=== PATIENT | male | born 1960 | race African-American/Black ===

== ENCOUNTER 2016-02-28 15:24 | Inpatient (IN) | payer OTHER ==
[2016-02-28] VITALS (8 sets, daily range): BP systolic 152–202; BP diastolic 86–119; PULSE 91–106; RESP 15–18; TEMP 97.8; O2SAT 95–99
[~2016-02-28] VITALS: Ht 190.5 cm; Wt 95.2 kg
[~2016-02-28 15:24] MED LIST: AMLO10TA2 PO; ATOR40TA16 PO; BACL10TA PO; CARV6.252 PO; CYCL1TAB29 PO; FURO40TA PO; GABA300C5 PO; HYDR25TA35 PO; LISI40TA PO; PLAV75TA29 PO; POTA-163 PO; PROT40TA PO
--- NOTE | 2016-02-28 15:55 | PD ---
HPI Chief Complaint: Chest Pain Time Seen by Provider: 15:40 Travel History International Travel<30 days: No Contact w/Intl Traveler<30days: No Traveled to known affect area: No History of Present Illness HPI Patient is a 56-year-old male with history of hypertension, diabetes, hyperlipidemia, coronary artery disease who presents to emergency room with complaints of chest pain. Patient reports that he has been having increased chest pain over the past few weeks. Reports that chest pain has been persistent over the past few days. Patient reports that chest pain is located to his right breast, reports that it travels under his ribs to his left chest and then down his right arm. Patient reports that he has has history of chest pain in the past and has had a previous cardiac catheter in the past. 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 Patient reports that he feels diaphoretic with this chest pain. Patient also admits to shortness of breath with nausea and vomiting with the symptoms. Denies palpitations. PFSH Past Medical History Hx Anticoagulant Therapy: Yes Depression: Yes Heart Rhythm Problems: No Cancer: No Cardiac Catheterization: No Cardiovascular Problems: Yes High Cholesterol: Yes Congestive Heart Failure: No Diabetes: No Diminished Hearing: No Gastrointestinal Disorders: No Genitourinary: No Heparin Induced Thrombocytopen: No Hypertension: Yes (ON AND OFF) Immune Disorder: No Implanted Vascular Access Dvce: No Musculoskeletal: Yes (chronic lumbar pain) Neurologic: Yes Psychiatric: Yes Reproductive: No Respiratory: Yes Immunizations Current: No Renal Failure: Yes (RESOLVED 1992) Triglycerides - High: Yes Tetanus Vaccination: > 5 Years Past Surgical History Coronary Artery Bypass Graft: No Other Surgery: No Social History Alcohol Use: No Tobacco Use: No (quit recently, used to smoke 4-5 cigs a day) Substance Use: No Allergies-Medications (Allergen,Severity, Reaction): Coded Allergies: *MDRO Multi-Drug Resistant Organism (Verified Adverse Reaction, Unknown, 02/28/16) 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 Reported Meds & Prescriptions Reported Meds & Active Scripts Active Furosemide 40 Mg Tab 40 Mg PO DAILY Atorvastatin (Atorvastatin Calcium) 40 Mg Tab 40 Mg PO HS Plavix (Clopidogrel Bisulfate) 75 Mg Tab 75 Mg PO DAILY Hydralazine (Hydralazine HCl) 25 Mg Tab 25 Mg PO Q8HR takes 3 tabs every 8 hours Potassium Chloride ER (Potassium Chloride) 20 Meq Tab 20 Meq PO DAILY Protonix (Pantoprazole Sodium) 40 Mg Tab 40 Mg PO DAILY Amlodipine (Amlodipine Besylate) 10 Mg Tab 10 Mg PO DAILY Flexeril (Cyclobenzaprine HCl) 10 Mg Tab 10 Mg PO TID Reported Gabapentin 300 Mg Cap 300 Mg PO TID Carvedilol 6.25 Mg Tab 6.25 Mg PO BID Baclofen 10 Mg Tab 10 Mg PO TID PRN Review of Systems Cardiovascular: Positive: Chest Pain or Discomfort, Diaphoresis Respiratory: Positive: Shortness of Breath Gastrointestinal: Positive: Nausea, Vomiting Physical Exam Narrative GENERAL: nad, nontoxic SKIN: Warm and dry. HEAD: Atraumatic. Normocephalic. EYES: Pupils equal and round. No scleral icterus. No injection or drainage. ENT: No nasal bleeding or discharge. Mucous membranes pink and moist. NECK: Trachea midline. No JVD. CARDIOVASCULAR: Regular rate and rhythm. +4/6 systolic murmur RESPIRATORY: No accessory muscle use. Clear to auscultation. Breath sounds equal bilaterally. GASTROINTESTINAL: Abdomen soft, non-tender, nondistended. Hepatic and splenic margins not palpable. MUSCULOSKELETAL: No obvious deformities. No clubbing. No cyanosis. No edema. NEUROLOGICAL: Awake and alert. No obvious cranial nerve deficits. Motor grossly within normal limits. Normal speech. PSYCHIATRIC: Appropriate mood and affect; insight and judgment normal. Data Data Last Documented VS Vital Signs Date Time Temp Pulse Resp B/P Pulse Ox O2 Delivery O2 Flow Rate FiO2 02/28/16 16:00 99 02/28/16 15:26 97.8 91 15 169/96 Orders Electrocardiogram (02/28/16 ) B-Type Natriuretic Peptide (02/28/16 15:46) Ckmb (Isoenzyme) Profile (02/28/16 15:46) Complete Blood Count With Diff (02/28/16 15:46) Comprehensive Metabolic Panel (02/28/16 15:46) Prothrombin Time / Inr (Pt) (02/28/16 15:46) Act Partial Throm Time (Ptt) (02/28/16 15:46) Troponin I (02/28/16 15:46) Chest, Single Ap (02/28/16 15:46) Ecg Monitoring (02/28/16 15:46) Iv Access Insert/Monitor (02/28/16 15:46) Oximetry (02/28/16 15:46) Oxygen Administration (02/28/16 15:46) Aspirin (Aspirin) (02/28/16 16:00) Sodium Chloride 0.9% Flush (Ns Flush) (02/28/16 16:00) Nitroglycerin Sl (Nitrostat Sl) (02/28/16 16:00) Sodium Chlorid 0.9% 500 Ml Inj (Ns 500 M (02/28/16 16:00) CKMB (02/28/16 15:50) CKMB% (02/28/16 15:50) Morphine Inj (Morphine Inj) (02/28/16 17:15) Nitroglycerin-Dextrose Inj (Nitroglyceri (02/28/16 17:15) Heparin Inj (Heparin Inj) (02/28/16 23:15) Heparin Inj (Heparin Inj) (02/28/16 23:15) Heparin-D5w Inj (Heparin-D5w Inj) (02/28/16 17:15) Enoxaparin Inj (Lovenox Inj) (02/28/16 17:30) Labs Laboratory Tests Test 02/28/16 15:50 White Blood Count 14.0 TH/MM3 Red Blood Count 3.55 MIL/MM3 Hemoglobin 11.8 GM/DL Hematocrit 33.9 % Mean Corpuscular Volume 95.4 FL Mean Corpuscular Hemoglobin 33.1 PG Mean Corpuscular Hemoglobin 34.7 % Concent Red Cell Distribution Width 14.3 % Platelet Count 271 TH/MM3 Mean Platelet Volume 8.5 FL Neutrophils (%) (Auto) 74.6 % Lymphocytes (%) (Auto) 18.3 % Monocytes (%) (Auto) 4.5 % Eosinophils (%) (Auto) 2.1 % Basophils (%) (Auto) 0.5 % Neutrophils # (Auto) 10.4 TH/MM3 Lymphocytes # (Auto) 2.6 TH/MM3 Monocytes # (Auto) 0.6 TH/MM3 Eosinophils # (Auto) 0.3 TH/MM3 Basophils # (Auto) 0.1 TH/MM3 CBC Comment DIFF FINAL Differential Comment Prothrombin Time 9.9 SEC Prothromb Time International 0.9 RATIO Ratio Activated Partial 31.8 SEC Thromboplast Time Sodium Level 138 MEQ/L Potassium Level 3.3 MEQ/L Chloride Level 104 MEQ/L Carbon Dioxide Level 23.3 MEQ/L Anion Gap 11 MEQ/L Blood Urea Nitrogen 15 MG/DL Creatinine 2.50 MG/DL Estimat Glomerular Filtration 33 ML/MIN Rate Random Glucose 96 MG/DL Calcium Level 7.0 MG/DL Protein Corrected Calcium 7.8 MG/DL Total Bilirubin 0.1 MG/DL Aspartate Amino Transf 28 U/L (AST/SGOT) Alanine Aminotransferase 26 U/L (ALT/SGPT) Alkaline Phosphatase 106 U/L Total Creatine Kinase 428 U/L Creatine Kinase MB 3.8 NG/ML Creatine Kinase MB % 0.9 % Troponin I 0.09 NG/ML B-Type Natriuretic Peptide 116 PG/ML Total Protein 5.5 GM/DL Albumin 1.3 GM/DL [facility] Medical Decision Making Medical Screen Exam Complete: Yes Emergency Medical Condition: Yes Interpretation(s) EKG at 1542: Sinus tach at 103 bpm, QT/QTc 334/394 Vital Signs Date Time Temp Pulse Resp B/P Pulse Ox O2 Delivery O2 Flow Rate FiO2 02/28/16 15:26 97.8 91 15 169/96 95 Differential Diagnosis ACS, unstable angina, pneumothorax, pneumonia, PE, electrolyte abnormality Narrative Course Patient is a 56-year-old male with history of coronary disease, hypertension, hyperlipidemia, presents to emergency room with complaints of chest pain. Patient reports the chest pain has been ongoing for the past few weeks but has been persistent over the past few days. Patient placed on school lunch monitor as well as continuous pulse oximetry upon arrival to ER. EKG obtained. Patient with sinus tach at 103 beats for minute, no acute ST-T wave changes on EKG. CBC, BMP, cardiac enzymes as well as a chest ordered for evaluation of symptoms. I ordered patient and aspirin as well as sublingual nitroglycerin to see if this helps with pain. Plan to reevaluate after sl nitroglycerin Previous records reviewed, patient had a cardiac catheterization on October 09, [address] Burroughs. Patient had 1) mild to moderate 3 vessel coronary disease and a left dominant system. 2) Patient's left ventricular systolic function with EF was 60%. 3) first diagonal artery, there is a moderate to large sized vessel, has a 45 angulation of the left anterior descending artery. It is approximately 50-60% angiographically. Dr burroughs recommended trial of medical management of lesion. As per Dr. Burroughs, if the patient has persistent chest pain on optimal medical therapy, consider FFR of the lesion and possible high risk intervention versus CABG Patient with a troponin of 0.09 Patient with continued chest pain, will give dose of morphine for pain Patient cannot tell me who he follows up with for cardiology, patient did have a cardiac catheter by Dr. Burroughs in september 2015. pt with coronary disease with a 50-60% occlusion of ostial proximal diagonal artery Call made to Dr. Burroughs for positive troponin and further cardiac management Will start patient on heparin and heparin drip as well as a drip for his chest pain. Admit patient to the CICU Discussed case with Dr Delatorre who is covering for Dr Burroughs, request lovenox and nitro gtt, will cont to follow pt Case reviewed with family practice residents who accepts patient to Dr. Flores' s service Critical Care Narrative Aggregate critical care time was 30 minutes. Time to perform other separately billable procedures was not included in the critical care time. My time did not include minutes spent treating any other patients simultaneously or on activities that did not directly contribute to the patient's treatment. The services I provided to this patient were to treat and/or prevent clinically significant deterioration that could result in: , decompensation, deterioration I provided critical care services requiring my management, as noted below: Chart data review, documentation time, medication orders and management, vital sign assessments/reviewing monitor data, ordering and reviewing lab tests, ordering and interpreting/reviewing x-rays and diagnostic studies, care of the patient and discussion of the patient with the admitting physicians. Diagnosis Primary Impression: NSTEMI (non-ST elevated myocardial infarction) Additional Impression: Unstable angina Admitting Information Admitting Physician Requests: Kaylin Escobar DO Feb 28, 2016 15:55
[2016-02-28] MEDS ORDERED: ASPIRIN 325 MG TAB PO ONE (16:00)
[2016-02-28] MEDS ORDERED: SODIUM CHLORID 0.9% 500 ML INJ 500 ML IV ONE (16:00)
[2016-02-28] MEDS: NITROGLYCERIN 0.4 MG SL 25 TABS/BTL SL SCH ×3 (16:12→16:22)
--- NOTE | 2016-02-28 16:13 | RADRPT ---
EXAM DATE/TIME: 02/28/2016 15:47 [facility] COMPARISON: CHEST SINGLE AP, November 20, 2015, 15:40. INDICATIONS : Chest Pain, Short of Breath. MEDICAL HISTORY : Hypercholesterolemia. Hypertension. Hyperlipidemia. Dyspnea. Renal failure. Chronic lumbar pain. Depr ession. SURGICAL HISTORY : None. ENCOUNTER: Initial ACUITY: 2 days PAIN SCORE: 7/10 LOCATION: Bilateral chest FINDINGS: A single view of the chest demonstrates the lungs to be symmetrically aerated without evidence of mas s, infiltrate or effusion. The cardiomediastinal contours are unremarkable. Osseous structures are intact. CONCLUSION: No evidence of acute cardiopulmonary disease. Troy Dean MD on February 28, 2016 at 16:11 Board Certified Radiologist. This report was verified electronically.
[2016-02-28 16:15] LABS: AUTOMATED NEUTROPHIL # 10.4 TH/MM3 (1.8-7.7); BASOPHIL # 0.1 TH/MM3 (0-0.2); BASOPHIL % 0.5 % (0.0-2.0); EOSINOPHIL # 0.3 TH/MM3 (0-0.4); EOSINOPHIL % 2.1 % (0.0-4.0); HEMATOCRIT 33.9 % (39.0-51.0); HEMO FLAGS DIFF FINAL; LYMPH % 18.3 % (9.0-44.0); LYMPHOCYTE # 2.6 TH/MM3 (1.0-4.8); MEAN CELL VOLUME 95.4 FL (80.0-100.0); MEAN CORPUSCULAR HEMOGLOBIN 33.1 PG (27.0-34.0); MEAN CORPUSCULAR HGB CONC 34.7 % (32.0-36.0); MONO % 4.5 % (0.0-8.0); NEUT % 74.6 % (16.0-70.0); PLATELET COUNT 271 TH/MM3 (150-450); RED BLOOD COUNT 3.55 MIL/MM3 (4.50-5.90); RED CELL DISTRIBUTION WIDTH 14.3 % (11.6-17.2)
[2016-02-28 16:29] LABS: APTT (PATIENT) 31.8 SEC (24.3-30.1); INTERNATIONAL NORMALIZED RATIO 0.9 RATIO; PROTHROMBIN TIME - PATIENT 9.9 SEC (9.8-11.6)
[2016-02-28 16:53] LABS: BICARBONATE 23.3 MEQ/L (21.0-32.0); CALCIUM-PROTEIN CORRECTED 7.8 MG/DL (8.5-10.1); POTASSIUM 3.3 MEQ/L (3.5-5.1); TOTAL BILIRUBIN ADULT 0.1 MG/DL (0.2-1.0)
[2016-02-28] MEDS ORDERED: HEPARIN-D5W INJ 250 ML IV SCH ×2 (17:15→18:45)
[2016-02-28] MEDS ORDERED: MORPHINE SULFATE 4 MG/ML INJ IV PUSH ONE (17:15)
[2016-02-28] MEDS ORDERED: NITROGLYCERIN-DEXTROSE INJ 250 ML IV SCH (17:15)
[2016-02-28 17:23] LABS: CKMB 3.8 NG/ML (0.5-3.6)
[2016-02-28] MEDS ORDERED: ENOXAPARIN SODIUM 100 MG/ML SYRINGE SQ ONE (17:30)
[2016-02-28] MEDS: CLOPIDOGREL 75 MG TAB PO SCH (18:56)
[2016-02-28] MEDS: PANTOPRAZOLE SOD 40 MG DELAYED RELEASE TAB PO SCH (18:56)
[2016-02-28] MEDS ORDERED: ACETAMINOPHEN 325 MG TAB PO PRN (19:00)
[2016-02-28] MEDS ORDERED: POTASSIUM CHLORIDE 20 MEQ CONTROLLED RELEASE TAB PO ONE (19:15)
--- NOTE | 2016-02-28 19:38 | HHI.HP ---
HPI Service Family Medicine Primary Care Physician No Primary Care Physician Admission Diagnosis Unstable Angina, NSTEMI Diagnoses: International Travel<30 Days: No Contact w/Intl Traveler<30days: No Known Affected Area: No History of Present Illness 56-year-old male with past medical history of known coronary artery disease with last heart catheter performed September/2015 showing 50-60% stenosis of the diagonal artery, hypertension in poor control, hyperlipidemia presenting with a 3 to four-day history of chest pain radiating to the right arm worsening on exertion and associated dyspnea. Pain occurred suddenly 3-4 days ago localized in the mid chest and is described as alternating between a pressure and a stabbing sensation. Occasionally the pain will radiate down the right arm. Regarding the right arm, 4 days ago he woke up with weakness of the right arm. This has been improving, but is not completely resolved. Associated with some numbness and the pain as previously mentioned. He denies any orthopnea. He has had some swelling of his face in the morning time as well as some swelling of his legs which has been an ongoing problem for several months, improved since he started taking Lasix. He has not had any palpitations, fevers or chills, syncope, pain radiating to back (apart from his chronic back pain). Additionally , he notes right upper quadrant abdominal pain occasionally associated with this chest pain/pressure. Finally, he notes some mild dysuria and difficulty initiating urine stream which has been ongoing for several weeks. Note: Patient is a relatively poor historian does not have a good understanding of his medical history Review of Systems ROS Limitations: Poor Historian Constitutional: DENIES: Fever Endocrine: DENIES: Polyuria Eyes: DENIES: Blurred vision Respiratory: COMPLAINS OF: Shortness of breath, DENIES: Cough Cardiovascular: COMPLAINS OF: Chest pain, Dyspnea on Exertion, Lower Extremity Edema, DENIES: Palpitations, Orthopnea Gastrointestinal: COMPLAINS OF: Abdominal pain, DENIES: Black stools, Bloody stools, Constipation, Nausea, Vomiting Genitourinary: COMPLAINS OF: Sexual dysfunction (ongoing issue, following with Dr. Russell), Urinary frequency, Dysuria, DENIES: Urinary incontinence, Urgency , Hematuria Musculoskeletal: DENIES: Joint pain, Muscle aches Integumentary: DENIES: Rash Hematologic/lymphatic: DENIES: Bruising Neurologic: DENIES: Headache Past Family Social History Past Medical History Coronary artery disease (see history of present illness) Hypertension, relatively poorly controlled Hyperlipidemia Past Surgical History Colonoscopy a few months ago, told to follow-up in 5 years Reported Medications Reported Meds & Active Scripts Active Furosemide 40 Mg Tab 40 Mg PO DAILY Atorvastatin (Atorvastatin Calcium) 40 Mg Tab 40 Mg PO HS Plavix (Clopidogrel Bisulfate) 75 Mg Tab 75 Mg PO DAILY Hydralazine (Hydralazine HCl) 25 Mg Tab 25 Mg PO Q8HR takes 3 tabs every 8 hours Potassium Chloride ER (Potassium Chloride) 20 Meq Tab 20 Meq PO DAILY Protonix (Pantoprazole Sodium) 40 Mg Tab 40 Mg PO DAILY Amlodipine (Amlodipine Besylate) 10 Mg Tab 10 Mg PO DAILY Flexeril (Cyclobenzaprine HCl) 10 Mg Tab 10 Mg PO TID Reported Gabapentin 300 Mg Cap 300 Mg PO TID Carvedilol 6.25 Mg Tab 6.25 Mg PO BID Baclofen 10 Mg Tab 10 Mg PO TID PRN Allergies: Coded Allergies: *MDRO Multi-Drug Resistant Organism (Verified Adverse Reaction, Unknown, 02/28/16) 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 Active Ordered Medications Current Medications Medications (Trade) Dose Ordered Sig/Ramakrishna Route Start Time Stop Time Status Last Admin IV Flush 2 ml 2 ml UNSCH PRN IVF 02/28/16 16:00 (Nitroglycerin-Dextrose Inj) 250 ml @ 0 mls/hr TITRATE IV 02/28/16 17:15 02/28/16 17:27 (Norvasc) 10 mg DAILY PO 02/28/16 18:15 02/28/16 18:56 (Lipitor) 40 mg HS PO 02/28/16 21:00 02/28/16 20:38 (Coreg) 6.25 mg BID PO 02/28/16 21:00 02/28/16 20:37 (Plavix) 75 mg DAILY PO 02/28/16 18:15 02/28/16 18:56 (Lasix) 40 mg DAILY PO 02/29/16 09:00 Future Hold (Neurontin) 300 mg TID PO 02/29/16 09:00 (Apresoline) 25 mg Q8HR PO 02/28/16 22:00 Future Hold (Protonix) 40 mg DAILY@06 PO 02/28/16 18:15 02/28/16 18:56 Potassium Chloride 20 meq 20 meq DAILY PO 02/29/16 09:00 (Heparin-D5W Inj) 250 ml @ 0 mls/hr TITRATE IV 02/28/16 18:45 02/28/16 19:51 (Colace) 100 mg Q12H PO 02/28/16 20:00 02/28/16 20:37 (Tylenol) 650 mg Q6H PRN PO 02/28/16 19:00 (Roxicodone) 10 mg Q4H PRN PO 02/28/16 19:00 (Morphine Inj) 4 mg Q3H PRN IV 02/28/16 19:00 (Roxicodone) 5 mg Q4H PRN PO 02/28/16 19:00 (Aspirin) 325 mg DAILY PO 02/29/16 09:00 (Flexeril) 10 mg TID PRN PO 02/29/16 09:00 Family History Mother had Crohn's disease and diabetes Social History Tobacco: Smoked a third pack per day for about 30 years, quit 4 months ago Alcohol no current use, formerly drank fairly heavily when he was in the Drugs: Denies use Other: 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 Cool and dry. HEAD: NC/AT EYES: PERRL. EOMI. No conjunctival injection or drainage. ENT: MMM, OP without erythema, tonsillar swelling, or exudate. NECK: Supple, no lymphadenopathy. CARDIOVASCULAR: Normal to slightly tachycardic rate, regularly irregular with extra beat approximately every fourth beat. S1/S2 normal, frequent PVCs audible , questionable S4 heard best at the mitral area. 2/6 systolic ejection murmur at right upper sternal border and apex of heart. RESPIRATORY: CTAB. No crackles or wheezes. GASTROINTESTINAL: Abdomen soft, non-distended, mildly tender to palpation of the right upper quadrant, no rebound, no guarding. No hepato-splenomegaly or palpable masses. MUSCULOSKELETAL: Extremities without clubbing, cyanosis, or edema. NEUROLOGICAL: Awake and alert. Cranial nerves II through XII intact. Strength 3 out of 5 in right upper extremity, harsh a limited due to pain, however partially limited as well due to underlying weakness. Strength 5 out of 5 in all other muscle groups. Sensation grossly intact throughout. Normal speech. Laboratory Laboratory Tests Test 02/28/16 15:50 White Blood Count 14.0 Red Blood Count 3.55 Hemoglobin 11.8 Hematocrit 33.9 Mean Corpuscular Volume 95.4 Mean Corpuscular Hemoglobin 33.1 Mean Corpuscular Hemoglobin 34.7 Concent Red Cell Distribution Width 14.3 Platelet Count 271 Mean Platelet Volume 8.5 Neutrophils (%) (Auto) 74.6 Lymphocytes (%) (Auto) 18.3 Monocytes (%) (Auto) 4.5 Eosinophils (%) (Auto) 2.1 Basophils (%) (Auto) 0.5 Neutrophils # (Auto) 10.4 Lymphocytes # (Auto) 2.6 Monocytes # (Auto) 0.6 Eosinophils # (Auto) 0.3 Basophils # (Auto) 0.1 CBC Comment DIFF FINAL Differential Comment Prothrombin Time 9.9 Prothromb Time International 0.9 Ratio Activated Partial 31.8 Thromboplast Time Sodium Level 138 Potassium Level 3.3 Chloride Level 104 Carbon Dioxide Level 23.3 Anion Gap 11 Blood Urea Nitrogen 15 Creatinine 2.50 Estimat Glomerular Filtration 33 Rate Random Glucose 96 Calcium Level 7.0 Protein Corrected Calcium 7.8 Total Bilirubin 0.1 Aspartate Amino Transf 28 (AST/SGOT) Alanine Aminotransferase 26 (ALT/SGPT) Alkaline Phosphatase 106 Total Creatine Kinase 428 Creatine Kinase MB 3.8 Creatine Kinase MB % 0.9 Troponin I 0.09 B-Type Natriuretic Peptide 116 Total Protein 5.5 Albumin 1.3 Result Diagram: 02/28/16 1550 02/28/16 1550 Imaging Last Impressions Chest X-Ray 02/28/16 1546 Signed Impressions: Service Date/Time: Sunday, February 28, 2016 15:47 - CONCLUSION: No evidence of acute cardiopulmonary disease. Troy Dean MD Assessment and Plan Assessment and Plan 56-year-old male with history of significant coronary artery disease and uncontrolled hypertension presenting with: Code Status Full code Discussed Condition With Dr. Cline Problem List: (1) NSTEMI (non-ST elevated myocardial infarction) Status: Acute Plan: Acute onset chest pain in setting of elevated NC in no ST segment changes on EKG makes diagnosis of NSTEMI Last echocardiogram 02/28/15 showing normal EF, mild aortic regurgitation and aortic root dilation Troponin: 0.09 BNP 115 * Cardiology consulted, appreciate their recommendations * Initially given 1 dose Lovenox, however due to acute kidney injury will continue on unfractionated heparin drip titrated per protocol * Nitro drip titrated per protocol * Trend cardiac enzymes every 6 hours * Trend EKG every 6 hours * Echocardiogram * Patient on aspirin, beta isaac, statin * Lisinopril had previously given cough, needs to be on ARB; holding for now given acute kidney injury * Telemetry * Administer oxygen to maintain O2 sats greater than 95% * Tylenol and oxycodone as needed for pain, morphine for breakthrough (2) Weakness of right arm Status: Acute Plan: Patient has history of "nerve impingement" of the right upper extremity causing numbness or tingling, however the weakness is a new symptom in the last 4 days. Per the patient he woke up with this symptom 4 days ago and it has improved somewhat but is still persistent. No prior history of stroke. * Well outside window for tPA * Given subacute nature, we'll defer MRI until drips can be safely discontinued to allow obtaining MRI * Unlikely to be intracranial hemorrhage given that symptoms been present for the last 4 days and have not worsened * Continue on aspirin, Plavix (3) Hypertension Status: Acute Plan: Blood pressures ranging 190 to 200s systolic, no symptoms other than chest pain, which does not appear to be related to hypertension * Continue to monitor blood pressures * On nitro drip * Hold home hydralazine does not prevent blood pressure dipping too low on nitro drip * Continue home amlodipine * Continue home Coreg * Clonidine 0.1 mg every 6 hours as needed for blood pressure greater than 180/ 100 * No need to allow permissive hypertension as patient is outside window of acute stroke protocol (subacute neurologic event, if any) (4) [id number] kidney injury Status: Acute Plan: Creatinine approximately 2.50 on admission, baseline around 1.24 back in October * Receiving IV fluids through the drips as previously noted * Hold additional IV fluids at this time given uncertain systolic heart function * Hold home Lasix given no clinical evidence of pulmonary edema or other fluid overload at this time * Renally dose medications * Follow-up BMP (5) ETOH abuse Status: Chronic Plan: Per patient, he has not had anything to drink in quite some time and this is since he was last in the service years ago) * CIWA protocol (6) Dysuria Status: Acute Plan: Mild, associated with some frequency and hesitancy for which PCP was working him up for prostate issues * UA to r/o UTI or occult hematuria * F/u as outpatient (7) DVT prophylaxis Status: Acute Plan: No need at this time given he is on heparin drip (8) Nutrition, metabolism, and development symptoms Status: Acute Plan: Fluids: By mouth only at this time except what is running through drips Electrolytes: Monitor and replace as needed Nutrition: Diet 1800 ADA carb consistent Physician Certification 2 Midnight Certification Type: Admission for Inpatient Services Order for Inpatient Services The services are ordered in accordance with Medicare regulations or non- Medicare payer requirements, as applicable. In the case of services not specified as inpatient-only, they are appropriately provided as inpatient services in accordance with the 2-midnight benchmark. Estimated LOS (days): 2 days is the estimated time the patient will need to remain in the hospital, assuming treatment plan goals are met and no additional complications. Post-Hospital Plan: Home Problem Qualifiers (1) Hypertension: Qualified Code: I10 - Essential hypertension Kody Terry MD R1 Feb 28, 2016 7:38 pm
[2016-02-28] MEDS: DOCUSATE SODIUM 100 MG CAP PO SCH (20:37)
[2016-02-28] MEDS: CARVEDILOL 6.25 MG TAB PO SCH (20:37)
[2016-02-28] MEDS: ATORVASTATIN 40 MG TAB PO SCH (20:38)
[2016-02-28] MEDS ORDERED: FLUMAZENIL 1 MG/10 ML VIAL IV PUSH PRN (21:45)
[2016-02-28] MEDS ORDERED: LORazepam 2 MG TAB PO PRN (21:45)
[2016-02-28] MEDS ORDERED: LORazepam 2 MG/ML VIAL IV PUSH PRN ×4 (21:45)
[2016-02-28] MEDS: MORPHINE SULFATE 4 MG/ML INJ IV PRN (23:11)
[2016-02-28] MEDS ORDERED: HEPARIN SODIUM - IV 10,000 UNITS/10 ML VIAL IV PRN ×2 (23:15)
[2016-02-29] VITALS (20 sets, daily range): BP systolic 143–166; BP diastolic 84–107; PULSE 80–92; RESP 16–18; TEMP 97.4–98.7; O2SAT 96–98
[2016-02-29 02:02] LABS: APTT (PATIENT) 38.1 SEC (24.3-30.1); INTERNATIONAL NORMALIZED RATIO 0.9 RATIO; PROTHROMBIN TIME - PATIENT 10.3 SEC (9.8-11.6)
[2016-02-29 04:17] LABS: AUTOMATED NEUTROPHIL # 7.5 TH/MM3 (1.8-7.7); BASOPHIL # 0.1 TH/MM3 (0-0.2); BASOPHIL % 0.5 % (0.0-2.0); EOSINOPHIL # 0.5 TH/MM3 (0-0.4); EOSINOPHIL % 4.3 % (0.0-4.0); HEMATOCRIT 29.3 % (39.0-51.0); HEMO FLAGS DIFF FINAL; LYMPHOCYTE # 3.9 TH/MM3 (1.0-4.8); MEAN CELL VOLUME 96.2 FL (80.0-100.0); MEAN CORPUSCULAR HEMOGLOBIN 32.7 PG (27.0-34.0); MONO % 5.2 % (0.0-8.0); PLATELET COUNT 226 TH/MM3 (150-450); RED BLOOD COUNT 3.04 MIL/MM3 (4.50-5.90); RED CELL DISTRIBUTION WIDTH 14.8 % (11.6-17.2); WHITE BLOOD COUNT 12.7 TH/MM3 (4.0-11.0)
[2016-02-29] MEDS: PANTOPRAZOLE SOD 40 MG DELAYED RELEASE TAB PO SCH (07:54)
[2016-02-29] MEDS: DOCUSATE SODIUM 100 MG CAP PO SCH ×2 (07:54→21:54)
[2016-02-29] MEDS: CARVEDILOL 6.25 MG TAB PO SCH ×2 (08:24→21:54)
[2016-02-29] MEDS: ASPIRIN 325 MG TAB PO SCH (08:24)
[2016-02-29 08:25] LABS: BICARBONATE 22.8 MEQ/L (21.0-32.0); CALCIUM-PROTEIN CORRECTED 8.5 MG/DL (8.5-10.1); POTASSIUM 3.8 MEQ/L (3.5-5.1); TOTAL BILIRUBIN ADULT 0.2 MG/DL (0.2-1.0)
[2016-02-29] MEDS: POTASSIUM CHLORIDE 20 MEQ CONTROLLED RELEASE TAB PO SCH (08:25)
[2016-02-29] MEDS: GABAPENTIN 300 MG CAP PO SCH ×3 (08:25→17:39)
[2016-02-29] MEDS: CLOPIDOGREL 75 MG TAB PO SCH (08:26)
[2016-02-29] MEDS ORDERED: FUROSEMIDE 40 MG TAB PO SCH (09:00)
[2016-02-29] MEDS ORDERED: CYCLOBENZAPRINE HCL 10 MG TAB PO SCH (09:00)
[2016-02-29] MEDS: MORPHINE SULFATE 4 MG/ML INJ IV PRN ×2 (09:02→11:34)
[2016-02-29 09:23] LABS: APTT (PATIENT) 35.5 SEC (24.3-30.1)
[2016-02-29] MEDS: cloNIDine HCL 0.1 MG TAB PO PRN (09:23)
--- NOTE | 2016-02-29 12:33 | RADRPT ---
EXAM DATE/TIME: 02/29/2016 12:15 [facility] COMPARISON: No previous studies available for comparison. INDICATIONS : Cephalgia. Right arm numbness. Evaluate for cerebral vascular accident. RADIATION DOSE: 49.36 CTDIvol (mGy) MEDICAL HISTORY : Hypertension. Renal failure, chronic. SURGICAL HISTORY : None. ENCOUNTER: Initial ACUITY: 1 day PAIN SCALE: 4/10 LOCATION: cranial TECHNIQUE: Multiple contiguous axial images were obtained of the head. Using automated exposure control and adj ustment of the mA and/or kV according to patient size, radiation dose was kept as low as reasonably a chievable to obtain optimal diagnostic quality images. FINDINGS: Remote right thalamic infarct. No signs of acute infarct, intracranial hemorrhage, or mass. Osseous s tructures are intact. CONCLUSION: Remote right thalamic infarct. Remigio Bill MD on February 29, 2016 at 12:32 Board Certified Radiologist. This report was verified electronically.
--- NOTE | 2016-02-29 13:15 | EKG ---
Date Performed: 02/29/2016 Time Performed: 01:59:25 PTAGE: 56 years EKG: Sinus rhythm WITH OCCASIONAL SUPRAVENTRICULAR PREMATURE COMPLEXES Since previous tracing, no significant change n oted BORDERLINE ECG PREVIOUS TRACING : 02/28/2016 22.30 DOCTOR: Rose Horvath Interpretating Date/Time 02/29/2016 13:15:16
--- NOTE | 2016-02-29 13:15 | EKG ---
Date Performed: 02/28/2016 Time Performed: 15:42:35 PTAGE: 56 years EKG: SINUS TACHYCARDIA WITH FREQUENT SUPRAVENTRICULAR PREMATURE COMPLEXES POSSIBLE LEFT ATRIAL E NLARGEMENT Since previous tracing, no significant change noted ABNORMAL RHYTHM ECG PREVIOUS TRACING : 11/20/2015 21.29 DOCTOR: Rose Horvath Interpretating Date/Time 02/29/2016 13:14:43
--- NOTE | 2016-02-29 13:15 | EKG ---
Date Performed: 02/28/2016 Time Performed: 22:30:34 PTAGE: 56 years EKG: Sinus rhythm WITH OCCASIONAL SUPRAVENTRICULAR PREMATURE COMPLEXES Since previous tracing, no significant change n oted BORDERLINE ECG PREVIOUS TRACING : 02/28/2016 15.42 DOCTOR: Rose Horvath Interpretating Date/Time 02/29/2016 13:15:07
[2016-02-29 14:22] LABS: BLOOD, URINE SMALL (NEG); COMMENT (UR) CULT NOT INDICATED; CULTURE IF INDICATED CULT NOT INDICATED; GLUCOSE,URINE NEG (NEG); KETONE, URINE NEG (NEG); MUCUS URINE FEW /lpf (OCC); NITRITE,URINE NEG (NEG); URINE COLOR LIGHT-YELLOW (YELLW/STRAW)
--- NOTE | 2016-02-29 16:33 | HHI.FPPN ---
Subjective Subjective Patient seen and examined this am with the resident team. Case reviewed and discussed Please refer to resident H&P for further details regarding HPI, ROS, PMH, SurgHx , Fh and SocHx In summary, patient is a 56yoM with a history of multiple hospital admissions for intermittent chest pain presenting for several days history of chest pain radiating to his arm. Initial troponin was elevated on admission and patient was placed on NG gtt with some improvement of his chest pain. He is seen this am, reporting his chest pain is improved. He complains of R shoulder pain which has been chronic for him. He is followed by Dr. Quintero in the community clinic. [facility] Objective Objective Last Impressions Head CT 02/29/16 0000 Signed Impressions: Service Date/Time: Monday, February 29, 2016 12:15 - CONCLUSION: Remote right thalamic infarct. Remigio Bill MD Chest X-Ray 02/28/16 1546 Signed Impressions: Service Date/Time: Sunday, February 28, 2016 15:47 - CONCLUSION: No evidence of acute cardiopulmonary disease. Troy Dean MD Laboratory Tests - Abnormals Test 02/28/16 02/29/16 02/29/16 02/29/16 21:50 01:35 03:30 09:00 Troponin I 0.10 NG/ML 0.08 NG/ML Activated Partial 38.1 SEC 35.5 SEC Thromboplast Time White Blood Count 12.7 TH/MM3 Red Blood Count 3.04 MIL/MM3 Hemoglobin 10.0 GM/DL Hematocrit 29.3 % Eosinophils (%) (Auto) 4.3 % Eosinophils # (Auto) 0.5 TH/MM3 Chloride Level 110 MEQ/L Blood Urea Nitrogen 20 MG/DL Creatinine 2.50 MG/DL Estimat Glomerular Filtration 33 ML/MIN Rate Calcium Level 7.1 MG/DL Total Protein 4.5 GM/DL Albumin 1.1 GM/DL Test 02/29/16 13:30 Urine Protein 100 mg/dL Urine Occult Blood SMALL Urine RBC 4 /hpf Urine Mucus FEW /lpf Vital Signs 02/28/16 02/28/16 02/28/16 02/28/16 19:01 19:07 20:38 20:59 Pulse 91 100 103 Resp 18 18 18 B/P 192/107 202/119 194/104 Pulse Ox 99 98 95 96 O2 Delivery Room Air 02/28/16 02/28/16 02/29/16 02/29/16 21:10 23:07 01:04 01:05 Pulse 106 94 Resp 18 18 18 18 B/P 166/98 152/86 Pulse Ox 96 96 O2 Delivery Room Air Room Air 02/29/16 02/29/16 02/29/16 02/29/16 02:01 05:25 05:46 07:00 Pulse 80 82 Resp 18 16 18 B/P 157/90 161/92 Pulse Ox 96 98 O2 Delivery Room Air 02/29/16 02/29/16 02/29/16 02/29/16 07:00 09:00 09:25 09:35 Temp 98.0 Pulse 88 84 84 80 Resp 16 16 16 B/P 152/86 152/84 166/107 Pulse Ox 98 98 98 O2 Delivery Room Air 02/29/16 02/29/16 02/29/16 02/29/16 10:00 11:00 11:00 12:00 Temp 97.4 Pulse 90 80 82 87 Resp 16 B/P 143/94 Pulse Ox 97 02/29/16 02/29/16 02/29/16 02/29/16 13:00 14:00 15:00 15:00 Temp 97.4 Pulse 91 86 80 81 Resp 16 B/P 165/96 Pulse Ox 98 02/29/16 02/29/16 16:00 16:00 Pulse 88 Pulse Ox 97 FiO2 21 Physical exam GENERAL: Obese male resting in bed, NAD SKIN: Warm and dry. No rashes. HEAD: Normocephalic. AT EYES: No scleral icterus. No injection or drainage. ENT: OP clear. MMM, NC in place NECK: Supple, trachea midline. No JVD or lymphadenopathy. CARDIOVASCULAR: Regular rate and rhythm without audible murmurs, gallops, or rubs. RESPIRATORY: Breath sounds equal and clear to auscultation bilaterally. No accessory muscle use. GASTROINTESTINAL: Abdomen soft, there is mild tenderness to deep palpation over RUQ and epigastric region, nondistended. Obese. MUSCULOSKELETAL: No cyanosis, or edema. No calf tenderness. R shoulder with limited passive and active ROM 2/2 pain. RUE with notable edema in comparison to the left. BACK: Nontender without obvious deformity. No CVA tenderness. NEURO: Awake and alert. Normal speech. CN grossly intact. Decreased welfare specialist strength of R hand in comparison to L Assessment Assessment 56yoM admitted with: Chest pain with elevated troponin NSTEMI Acute on chronic renal failure R shoulder pain Leukocytosis HTN HL CAD PLAN PLAN Serial ekg, trop Nitro and heparin gtt per cardiology Cardiology consultation ASA Morphine titrated to chest pain RUE doppler to r/o DVT Resume home meds as appropriate Counseled on compliance PT consult for R shoulder Consider MRI R shoulder Patient seen and examined. Case reviewed and discussed Agree with plan of care as discussed with me and documented in the resident note. Cathleen Flores MD Feb 29, 2016 16:33
--- NOTE | 2016-02-29 17:56 | RADRPT ---
EXAM DATE/TIME: 02/29/2016 15:06 [facility] COMPARISON: No previous studies available for comparison. INDICATIONS : Right arm pain and swelling. MEDICAL HISTORY : Hypercholesterolemia. Hypertension. Hyperlipidemia. Anticoagulant therapy. Dyspnea. Resolved renal f ailure. Chronic lumbar pain. Depression. SURGICAL HISTORY : Cardiac catheterization. ENCOUNTER: Initial ACUITY: 1 day PAIN SCORE: 5/10 LOCATION: Right arm. FINDINGS: There is spontaneous flow documented in the brachial, basilic, cephalic, axillary, and subclavian vei ns. The vessels are compressible and augmentation response is documented. No filling defects are se en. The flow is phasic with respiration. Direction of flow in the jugular vein is caudal. CONCLUSION: No DVT right upper extremity. Troy Dean MD on February 29, 2016 at 17:55 Board Certified Radiologist. This report was verified electronically.
--- NOTE | 2016-02-29 17:58 | RADRPT ---
EXAM DATE/TIME: 02/29/2016 15:32 [facility] COMPARISON: CT ABDOMEN & PELVIS W/O CONTRAST, October 09, 2015, 11:05. INDICATIONS : Increased lab values. MEDICAL HISTORY : Hypercholesterolemia. Hypertension. Hyperlipidemia. Anticoagulant therapy. Dyspnea. Resolved renal failure. Chronic lumbar pain. Depression. SURGICAL HISTORY : Cardiac catheterization. ENCOUNTER: Initial ACUITY: 1 day PAIN SCORE: 5/10 LOCATION: Bilateral flank MEASUREMENTS: RIGHT KIDNEY: 14.6 x 6.5 x 5.3 cm LEFT KIDNEY: 12.8 x 6.9 x 6.3 cm FINDINGS: RIGHT KIDNEY: Diffusely echogenic. No focal renal lesion. No hydronephrosis. LEFT KIDNEY: Diffusely echogenic. No focal renal lesion. No hydronephrosis. BLADDER: Within normal limits given the degree of distension. Incidentally seen nonspecific enlarged prostate, 4.3 x 5.7 x 4.3 cm. CONCLUSION: 1. Both kidneys are mildly echogenic suggesting early chronic parenchymal disease. 2. No obstructive uropathy or other acute abnormality demonstrated. 3. Enlarged prostate. Troy Dean MD on February 29, 2016 at 17:56 Board Certified Radiologist. This report was verified electronically.
--- NOTE | 2016-02-29 18:28 | MB ---
cc: GHANSHYAM LO M.D. DATE OF CONSULTATION 02/29/2016 REASON FOR CONSULTATION Chest pain and elevated troponin. HISTORY OF PRESENT ILLNESS This is 56-year-old black -[place] male for the last four days has been having on and off right-sided chest pain and neck pain, occasionally associated with shortness of breath. This has not been associated with activity. There was some numbness down the right arm as well, and he could not move his right arm because of weakness. He is known to have degenerative arthritis of the cervical spine with cervical radiculopathy. In September the patient had substernal chest pain and had cardiac catheterization by Dr. Rodriguez and it showed moderate disease of the diagonal branch. Ejection fraction was normal. The pain was similar to this. In October he was admitted for right cervical radiculopathy. He is known to have hypertension. He quit smoking 6 months ago. He has smoked one-third of a pack a day. He is a non-drinker. He is also known to have hyperlipidemia but no diabetes. He quit smoking in October. ALLERGIES STATED IN THE CHART. PAST MEDICAL HISTORY 1. Hypertension. 2. Hyperlipidemia. 3. Degenerative arthritis of the neck. MEDICATIONS At home: 1. Lasix. 2. Lipitor. 3. Plavix. 4. Hydralazine. 5. Potassium. 6. Protonix. 7. Amlodipine. 8. Flexeril. 9. Neurontin. 10. Carvedilol. 11. Baclofen. FAMILY HISTORY Father at age 74 of unknown etiology. Mother age 69 of complications of Crohn disease but no myocardial infarction. SOCIAL HISTORY The patient is with two healthy grown children. He is disabled. 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 PHYSICAL EXAMINATION VITAL SIGNS: On the day of consultation showed blood pressure of 152/84, pulse 84 per minute, afebrile. HEAD AND NECK: Examination shows normal oral exam. Neck is supple. CHEST: Exam showed decreased air entry with mild degree of bronchospasm. CARDIOVASCULAR: Examination showed normal neck vein. S1-S2 decreased. No S3-4. No murmur. ABDOMEN: Examination revealed liver and spleen not palpable. Bowel sounds normal. Nontender abdomen. CENTRAL NERVOUS SYSTEM: Exam showed the patient's oriented to time, place and person. Moving all four limbs. ASSESSMENT 1. Chest pain most likely secondary to degenerative arthritis of the neck with right cervical radiculopathy. 2. Moderate disease of the diagonal branch from cardiac catheterization done in September of 2015. 3. Hypertension. Poorly controlled. 4. Mild degree of bronchospasm from chronic obstructive pulmonary disease. 5. The patient also has renal insufficiency. 6. Mildly elevated troponin is probably secondary to mild renal insufficiency. PLAN I would recommend discontinuing IV nitro and IV heparin. The patient can be treated for cervical degenerative arthritis with radiculopathy. Renal insufficiency is secondary to hypertensive nephropathy. Dr. Rodriguez will take over tomorrow morning. MD SANDRA Servin/MALENA /1:09 PM /6:04 PM
[2016-02-29] MEDS: hydrALAZINE HCL 25 MG TAB PO SCH (21:53)
[2016-02-29] MEDS: ATORVASTATIN 40 MG TAB PO SCH (21:53)
[2016-02-29] MEDS: HEPARIN SODIUM - SQ 10,000 UNITS/ML VIAL SQ SCH (21:54)
[2016-02-29] MEDS: SODIUM CHLORIDE 0.9% FLUSH 5 ML FLUSH IVF PRN (21:54)
[2016-03-01] VITALS (30 sets, daily range): BP systolic 138–170; BP diastolic 70–110; PULSE 69–85; RESP 18; TEMP 98.5–98.7; O2SAT 96–99
[2016-03-01] MEDS: cloNIDine HCL 0.1 MG TAB PO PRN (01:59)
[2016-03-01] MEDS: hydrALAZINE HCL 25 MG TAB PO SCH ×3 (06:23→21:57)
[2016-03-01] MEDS: PANTOPRAZOLE SOD 40 MG DELAYED RELEASE TAB PO SCH (06:23)
[2016-03-01] MEDS: HEPARIN SODIUM - SQ 10,000 UNITS/ML VIAL SQ SCH ×3 (06:24→21:57)
[2016-03-01 07:56] LABS: AUTOMATED NEUTROPHIL # 7.3 TH/MM3 (1.8-7.7); BASOPHIL # 0.1 TH/MM3 (0-0.2); BASOPHIL % 0.5 % (0.0-2.0); EOSINOPHIL # 0.4 TH/MM3 (0-0.4); EOSINOPHIL % 3.2 % (0.0-4.0); HEMATOCRIT 30.6 % (39.0-51.0); HEMO FLAGS DIFF FINAL; LYMPH % 29.3 % (9.0-44.0); LYMPHOCYTE # 3.5 TH/MM3 (1.0-4.8); MEAN CELL VOLUME 96.8 FL (80.0-100.0); MEAN CORPUSCULAR HEMOGLOBIN 32.3 PG (27.0-34.0); MEAN CORPUSCULAR HGB CONC 33.4 % (32.0-36.0); MONO % 5.7 % (0.0-8.0); NEUT % 61.3 % (16.0-70.0); PLATELET COUNT 221 TH/MM3 (150-450); RED BLOOD COUNT 3.16 MIL/MM3 (4.50-5.90); RED CELL DISTRIBUTION WIDTH 14.6 % (11.6-17.2); WHITE BLOOD COUNT 11.9 TH/MM3 (4.0-11.0)
[2016-03-01 08:28] LABS: ALT (GPT) 16 U/L (12-78); ANION GAP 10 MEQ/L (5-15); AST (GOT) 16 U/L (15-37); BICARBONATE 24.5 MEQ/L (21.0-32.0); BLOOD UREA NITROGEN 20 MG/DL (7-18); CHLORIDE 110 MEQ/L (98-107); GLOMERULAR FILTRATION RATE 37 ML/MIN (>89); SODIUM (NA) 144 MEQ/L (136-145)
[2016-03-01 08:30] LABS: ALKALINE PHOSPHATASE 70 U/L (45-117); TOTAL BILIRUBIN ADULT 0.2 MG/DL (0.2-1.0)
[2016-03-01] MEDS: CYCLOBENZAPRINE HCL 10 MG TAB PO PRN ×2 (09:44→17:28)
[2016-03-01] MEDS: CLOPIDOGREL 75 MG TAB PO SCH (09:44)
[2016-03-01] MEDS: CARVEDILOL 6.25 MG TAB PO SCH ×2 (09:44→20:26)
[2016-03-01] MEDS: ASPIRIN 325 MG TAB PO SCH (09:45)
[2016-03-01] MEDS: GABAPENTIN 300 MG CAP PO SCH ×3 (09:45→17:36)
[2016-03-01] MEDS: POTASSIUM CHLORIDE 20 MEQ CONTROLLED RELEASE TAB PO SCH (09:45)
[2016-03-01] MEDS: DOCUSATE SODIUM 100 MG CAP PO SCH (09:45)
[2016-03-01] MEDS ORDERED: PNEUMOCOCCAL POLYVALENT INJ 25 MCG/0.5 ML SYR IM ONE (10:00)
--- NOTE | 2016-03-01 10:29 | HHI.FPPN ---
Subjective Remarks No acute events overnight. AF, one BP 170/11, otherwise VS wnl and stable. Still having persistent chest pain 09/06 despite regular morphine use. Arm pain stable. Hesitancy on urination. Objective Vitals Vital Signs Date Time Temp Pulse Resp B/P Pulse Ox O2 Delivery O2 Flow Rate FiO2 03/01/16 10:01 160/76 03/01/16 09:27 98.6 78 18 151/108 97 03/01/16 06:00 79 03/01/16 05:00 78 03/01/16 04:00 79 03/01/16 03:05 84 18 138/88 98 Automatic Cuff 03/01/16 03:00 77 03/01/16 02:10 85 18 170/110 98 03/01/16 02:00 75 03/01/16 01:00 76 03/01/16 00:00 80 18 164/94 98 03/01/16 00:00 79 02/29/16 23:00 86 02/29/16 22:00 80 02/29/16 21:00 83 02/29/16 21:00 97 21 02/29/16 20:00 86 02/29/16 19:00 86 02/29/16 19:00 98.7 92 18 158/86 97 02/29/16 18:00 82 02/29/16 17:00 83 02/29/16 16:00 97 21 02/29/16 16:00 88 02/29/16 15:00 97.4 81 16 165/96 98 02/29/16 15:00 80 02/29/16 14:00 86 02/29/16 13:00 91 02/29/16 12:00 87 02/29/16 11:00 97.4 82 16 143/94 97 02/29/16 11:00 80 I/O 02/29/16 02/29/16 02/29/16 03/01/16 03/01/16 03/01/16 06:59 14:59 22:59 06:59 14:59 22:59 Intake Total 880 ml 300 ml Output Total 1000 ml 1500 ml Balance -120 ml -1200 ml Intake Oral 780 ml 300 ml IV Total 100 ml Output Urine Total 1000 ml 1500 ml Result Diagram: 03/01/16 0636 03/01/1636 Imaging Last Impressions Upper Extremity Ultrasound 02/29/16 0000 Signed Impressions: Service Date/Time: Monday, February 29, 2016 15:06 - CONCLUSION: No DVT right upper extremity. Troy Dean MD Renal Ultrasound 02/29/16 0000 Signed Impressions: Service Date/Time: Monday, February 29, 2016 15:32 - CONCLUSION: 1. Both kidneys are mildly echogenic suggesting early chronic parenchymal disease. 2. No obstructive uropathy or other acute abnormality demonstrated. 3. Enlarged prostate. Troy Dean MD Head CT 02/29/16 0000 Signed Impressions: Service Date/Time: Monday, February 29, 2016 12:15 - CONCLUSION: Remote right thalamic infarct. Remigio Bill MD Chest X-Ray 02/28/16 1546 Signed Impressions: Service Date/Time: Sunday, February 28, 2016 15:47 - CONCLUSION: No evidence of acute cardiopulmonary disease. Troy Dean MD Objective Remarks GENERAL: Well-developed well-nourished adult male sitting up in bed appearing in no acute distress CARDIOVASCULAR: Normal rate, regularly irregular with extra beat approximately every fourth beat. S1/S2 normal, frequent PVCs audible, questionable S4 heard best at the mitral area. 2/6 systolic ejection murmur at right upper sternal border and apex of heart. RESPIRATORY: CTAB. No crackles or wheezes. GASTROINTESTINAL: Abdomen soft, non-distended, mildly tender to palpation of the right upper quadrant, no rebound, no guarding. No hepato-splenomegaly or palpable masses. MUSCULOSKELETAL: Extremities without clubbing, cyanosis, or edema. NEUROLOGICAL: Awake and alert. Cranial nerves II through XII intact. Strength 5/ 5 to elbow flexion/extension RUE (improved from previously). Strength 5 out of 5 in all other muscle groups. Sensation grossly intact throughout. Normal speech. Medications and IVs Current Medications Medications (Trade) Dose Ordered Sig/Ramakrishna Route Start Time Stop Time Status Last Admin (NS Flush) 2 ml UNSCH PRN IVF 02/28/16 16:00 02/29/16 21:54 (Norvasc) 10 mg DAILY PO 02/28/16 18:15 03/01/16 09:44 (Lipitor) 40 mg HS PO 02/28/16 21:00 02/29/16 21:53 (Coreg) 6.25 mg BID PO 02/28/16 21:00 03/01/16 09:44 (Plavix) 75 mg DAILY PO 02/28/16 18:15 03/01/16 09:44 (Lasix) 40 mg DAILY PO 02/29/16 09:00 Hold (Neurontin) 300 mg TID PO 02/29/16 09:00 03/01/16 09:45 (Apresoline) 25 mg Q8HR PO 02/28/16 22:00 03/01/16 06:23 (Protonix) 40 mg DAILY@06 PO 02/28/16 18:15 03/01/16 06:23 (KCl) 20 meq DAILY PO 02/29/16 09:00 03/01/16 09:45 (Colace) 100 mg Q12H PO 02/28/16 20:00 03/01/16 09:45 (Tylenol) 650 mg Q6H PRN PO 02/28/16 19:00 (Roxicodone) 10 mg Q4H PRN PO 02/28/16 19:00 03/01/16 09:44 (Morphine Inj) 4 mg Q3H PRN IV 02/28/16 19:00 02/29/16 11:34 (Roxicodone) 5 mg Q4H PRN PO 02/28/16 19:00 03/01/16 06:22 (Aspirin) 325 mg DAILY PO 02/29/16 09:00 03/01/16 09:45 (Flexeril) 10 mg TID PRN PO 02/29/16 09:00 03/01/16 09:44 (Catapres) 0.1 mg Q6H PRN PO 02/28/16 21:30 03/01/16 01:59 (Ativan) 1 mg Q4H PRN PO 02/28/16 21:45 (Ativan Inj) 1 mg Q4H PRN IV PUSH 02/28/16 21:45 (Ativan) 2 mg Q2H PRN PO 02/28/16 21:45 (Ativan Inj) 2 mg Q2H PRN IV PUSH 02/28/16 21:45 (Ativan Inj) 2 mg Q1H PRN IV PUSH 02/28/16 21:45 (Ativan Inj) 2 mg Q15M PRN IV PUSH 02/28/16 21:45 (Heparin Inj) 5,000 units Q8HR SQ 02/29/16 22:00 03/01/16 06:24 A/P Assessment and Plan 56-year-old male with history of significant coronary artery disease and uncontrolled hypertension presenting with: Problem List: (1) Chest pain Status: Acute Plan: Acute onset chest pain and shortness of breath in setting of elevated troponin and no ST segment changes on EKG Last echocardiogram 02/28/15 showing normal EF, mild aortic regurgitation and aortic root dilation Troponin: 0.09 --> 0.10 --> 0.08 BNP 115 * Cardiology consulted, appreciate their recommendations * Cardiology feels etiology of chest pain is arthritis and radiculopathy (known problem to patient) * Continue ASA and Plavix, beta isaac, statin * Follow up as outpatient * Echocardiogram * Telemetry * Administer oxygen to maintain O2 sats greater than 95% * Tylenol and oxycodone as needed for pain, morphine for breakthrough * Consider CTA chest for aortic dissection, though pain non-classic (2) Weakness of right arm Status: Chronic Plan: Patient has history of "nerve impingement" of the right upper extremity causing numbness or tingling, however the weakness is a new symptom in the last 4 days. Per the patient he woke up with this symptom 4 days ago and it has improved somewhat but is still persistent. No prior history of stroke. Likely related to arthritis and radiculopathy. 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, no other infarct * Well outside window for tPA * Continue on aspirin, Plavix * F/U as outpatient (3) Hypertension Status: Acute Plan: Blood pressures still occasionally elevated but stable overnight and generally wnl * Continue home hydralazine * Continue home amlodipine * Continue home Coreg * Clonidine 0.1 mg every 6 hours as needed for blood pressure greater than 180/ 100 (4) [id number] kidney injury Status: Acute Plan: Creatinine approximately 2.50 on admission, baseline around 1.24 back in October Cr 2.50 --> 2.22 UA showing large proteinuria * NS at 100 cc/hr * Hold home Lasix given no clinical evidence of pulmonary edema or other fluid overload at this time * Renally dose medications * Follow-up BMP daily * Consider nephrology consult for discussion of need for dialysis outpatient as this may be a new baseline (5) ETOH abuse Status: Chronic Plan: Per patient, he has not had anything to drink in quite some time and this is since he was last in the service years ago) * CIWA protocol (6) Dysuria Status: Acute Plan: Mild, associated with some frequency and hesitancy for which PCP was working him up for prostate issues UA showing large protein, mild occult blood * Start Flomax HS * F/u as outpatient (7) DVT prophylaxis Status: Acute Plan: SQH 5000 units TID (8) Nutrition, metabolism, and development symptoms Status: Acute Plan: Fluids: As above Electrolytes: Monitor and replace as needed Nutrition: Diet Heart Healthy Problem Qualifiers (1) Chest pain: Qualified Code: R07.9 - Chest pain, unspecified type (2) Hypertension: Qualified Code: I10 - Essential hypertension Kody Terry MD R1 Mar 01, 2016 10:29
[2016-03-01] MEDS: SODIUM CHLOR 0.9% 1000 ML INJ 1,000 ML IV SCH ×2 (10:30→20:30)
[2016-03-01] MEDS ORDERED: POLYETHYLENE GLYCOL 17 GM PKG PO ONE (15:00)
--- NOTE | 2016-03-01 15:22 | EC ---
Study Study Date:03/01/2016 STUDY CONCLUSIONS SUMMARY - Left ventricle: The cavity size was normal. Wall thickness was normal. Systolic function was normal. The estimated ejection fraction was in the range of 55% to 60%. Wall motion was normal; there were no regional wall motion abnormalities. - Aortic valve: Mild regurgitation. - Aorta: The possibility of dissection is not excluded. - Aortic root: The aortic root was poorly visualized and normal in size. - Mitral valve: Mild regurgitation. - Right atrium: The atrium was mildly dilated. - Pulmonary arteries: PA peak pressure: 39mm Hg (S). If LV function is below 40, please consider prescribing an ACEI or ARB or document rationale for non-use. PROCEDURE DATA STUDY STATUS: Elective. Procedure: Transthoracic echocardiography. Image quality was fair. Scanning was performed from the parasternal, apical, and subcostal acoustic windows. Study completion: The patient tolerated the procedure well. Transthoracic echocardiography. M-mode, complete 2D, complete spectral Doppler, and color Doppler. Patient status: Inpatient. CARDIAC ANATOMY LEFT VENTRICLE: The cavity size was normal. Wall thickness was normal. Systolic function was normal. The estimated ejection fraction was in the range of 55% to 60%. Wall motion was normal; there were no regional wall motion abnormalities. AORTIC VALVE: Trileaflet; mildly thickened, moderately calcified leaflets. Doppler: Transvalvular velocity was within the normal range. There was no stenosis. Mild regurgitation. Mean gradient: 12mm Hg (S). Peak gradient: 22mm Hg (S). Aorta: - The possibility of dissection is not excluded. Aortic root: The aortic root was poorly visualized and normal in size. MITRAL VALVE: Structurally normal valve. Doppler: Transvalvular velocity was within the normal range. There was no evidence for stenosis. Mild regurgitation. Peak gradient: 2mm Hg (D). LEFT ATRIUM: The atrium was at the upper limits of normal in size. RIGHT VENTRICLE: The cavity size was normal. Wall thickness was normal. PULMONIC VALVE: Doppler: Transvalvular velocity was within the normal range. There was no evidence for stenosis. No regurgitation. TRICUSPID VALVE: Structurally normal valve. Doppler: Transvalvular velocity was within the normal range. No regurgitation. PULMONARY ARTERY: The main pulmonary artery was normal-sized. Systolic pressure was within the normal range. RIGHT ATRIUM: The atrium was mildly dilated. PERICARDIUM: There was no pericardial effusion. SYSTEMIC VEINS: Inferior vena cava: The vessel was normal in size. BASIC MEASUREMENTS ADULT Normal Left ventricle LV internal dimension, ED, chordal level, *53.4 mm 43-52 PLAX LV posterior wall thickness, ED 10.3 mm IVS/LVPW ratio, ED 1.25 <1.3 Ventricular septum Septal thickness, ED 12.9 mm Aortic valve Leaflet separation 20 mm 15-26 Left atrium Anterior-posterior dimension 38 mm Right ventricle RV internal dimension, ED, PLAX 30 mm 19-38 BASIC MEASUREMENTS ADULT Normal Aortic valve Leaflet separation 20 mm 15-26 Aorta Root diameter, ED 30 mm 20-37 DOPPLER MEASUREMENTS ADULT Normal Main pulmonary artery Pressure, S *39 mm Hg =30 Aortic valve Peak velocity, S 236 cm/s Mean velocity, S 157 cm/s VTI, S 47.1 cm Mean gradient, S 12 mm Hg Peak gradient, S 22 mm Hg Mitral valve Peak E-wave velocity 76.2 cm/s Peak A-wave velocity 61.4 cm/s Peak gradient, D 2 mm Hg Peak E/A ratio 1.2 Tricuspid valve Regurgitant peak velocity 251 cm/s Peak RV-RA gradient, S 25 mm Hg Maximal regurgitant velocity 251 cm/s Systemic veins Estimated CVP 10 mm Hg Right ventricle RV pressure, S *39 mm Hg <30 LEGEND: Mean values are shown as u=mean value. Asterisk (*) beach values outside specified normal range. Prepared and signed by Carlton Man [id number]
[2016-03-01 17:12] LABS: MRSA PCR NEGATIVE (NEGATIVE); STAPH AUREUS PCR NEGATIVE (NEGATIVE)
[2016-03-01] MEDS: DOCUSATE SODIUM 50 MG/SENNA 8.6 MG TAB PO SCH (20:26)
[2016-03-01] MEDS: ATORVASTATIN 40 MG TAB PO SCH (20:26)
[2016-03-01] MEDS: MORPHINE SULFATE 4 MG/ML INJ IV PRN (20:29)
--- NOTE | 2016-03-01 22:55 | RADRPT ---
EXAM DATE/TIME: 03/01/2016 22:02 [facility] COMPARISON: CHEST SINGLE AP, February 28, 2016, 15:47. INDICATIONS : Weakness. MEDICAL HISTORY : Hypercholesterolemia. Hypertension. Dyspnea. Resolved renal failure. Chronic lumbar pain. Depressio n. Hyperlipidemia. Anticoagulant therapy. SURGICAL HISTORY : Cardiac catheterization ENCOUNTER: Subsequent ACUITY: 1 day PAIN SCORE: 0/10 LOCATION: Bilateral neck PEAK SYSTOLIC VELOCITIES (cm/sec): ICA/CCA RATIO: Right: 1.1 Left: 1.3 ICA: Right: 85 Left: 123 CCA: Right: 79 Left: 92 ECA: Right: 101 Left: 84 VERTEBRAL: Right: 56 antegrade Left: 47 antegrade Elevated flow velocities and ICA/CCA ratios have been found to correlate with increased degrees of vessel stenosis, calculated as percentage of diameter relative to a normal segment of distal ICA/CCA FINDINGS: RIGHT CAROTID: Minimal plaque of the bulb and proximal internal carotid artery. LEFT CAROTID: Minimal plaque of the bulb and proximal internal carotid artery. VERTEBRAL ARTERIES: Antegrade flow is seen in both vertebral arteries. MISCELLANEOUS: None. CONCLUSION: Minimal bilateral bifurcation atherosclerotic plaque. No hemodynamically significant narrowing on eit her side. Troy Dean MD on March 01, 2016 at 22:53 Board Certified Radiologist. This report was verified electronically.
[2016-03-02] VITALS (25 sets, daily range): BP systolic 127–180; BP diastolic 84–100; PULSE 70–98; RESP 16–20; TEMP 95.5–99; O2SAT 97–98
[2016-03-02] MEDS: MORPHINE SULFATE 4 MG/ML INJ IV PRN (00:40)
[2016-03-02] MEDS: hydrALAZINE HCL 25 MG TAB PO SCH ×3 (05:33→22:53)
[2016-03-02] MEDS: HEPARIN SODIUM - SQ 10,000 UNITS/ML VIAL SQ SCH ×3 (05:33→22:53)
[2016-03-02] MEDS: PANTOPRAZOLE SOD 40 MG DELAYED RELEASE TAB PO SCH (05:33)
[2016-03-02] MEDS: SODIUM CHLOR 0.9% 1000 ML INJ 1,000 ML IV SCH (05:34)
[2016-03-02 07:04] LABS: AUTOMATED NEUTROPHIL # 6.6 TH/MM3 (1.8-7.7); BASOPHIL % 0.4 % (0.0-2.0); EOSINOPHIL # 0.4 TH/MM3 (0-0.4); EOSINOPHIL % 3.8 % (0.0-4.0); HEMATOCRIT 32.8 % (39.0-51.0); HEMO FLAGS DIFF FINAL; LYMPH % 25.8 % (9.0-44.0); LYMPHOCYTE # 2.6 TH/MM3 (1.0-4.8); MEAN CELL VOLUME 97.5 FL (80.0-100.0); MEAN CORPUSCULAR HEMOGLOBIN 32.9 PG (27.0-34.0); MEAN CORPUSCULAR HGB CONC 33.7 % (32.0-36.0); MONO % 5.4 % (0.0-8.0); NEUT % 64.6 % (16.0-70.0); PLATELET COUNT 227 TH/MM3 (150-450); RED BLOOD COUNT 3.37 MIL/MM3 (4.50-5.90); RED CELL DISTRIBUTION WIDTH 14.9 % (11.6-17.2); WHITE BLOOD COUNT 10.1 TH/MM3 (4.0-11.0)
[2016-03-02 07:28] LABS: BICARBONATE 23.6 MEQ/L (21.0-32.0); POTASSIUM 4.2 MEQ/L (3.5-5.1)
[2016-03-02] MEDS: DOCUSATE SODIUM 50 MG/SENNA 8.6 MG TAB PO SCH ×2 (08:34→19:53)
[2016-03-02] MEDS: ASPIRIN 325 MG TAB PO SCH (08:35)
[2016-03-02] MEDS: SODIUM CHLORIDE 0.9% FLUSH 5 ML FLUSH IVF PRN (08:36)
[2016-03-02] MEDS: TAMSULOSIN HCL 0.4 MG CAP PO SCH (08:36)
[2016-03-02] MEDS: GABAPENTIN 300 MG CAP PO SCH ×3 (08:36→19:52)
[2016-03-02] MEDS: POTASSIUM CHLORIDE 20 MEQ CONTROLLED RELEASE TAB PO SCH (08:36)
[2016-03-02] MEDS: CLOPIDOGREL 75 MG TAB PO SCH (08:36)
[2016-03-02] MEDS: CARVEDILOL 6.25 MG TAB PO SCH ×2 (08:36→19:53)
--- NOTE | 2016-03-02 10:10 | HHI.FPPN ---
Subjective Remarks No acute events overnight. Afebrile, BP 150/90, otherwise VS wnl and stable. Continued neck/arm pain and RUQ intermittent pain, but improved from yesterday. (Kody Terry MD R1) Objective Vitals Vital Signs Date Time Temp Pulse Resp B/P Pulse Ox O2 Delivery O2 Flow Rate FiO2 03/02/16 09:05 98 21 03/02/16 09:00 81 03/02/16 08:00 75 03/02/16 07:00 76 03/02/16 07:00 95.5 77 16 127/90 98 03/02/16 05:03 78 03/02/16 04:00 98.5 74 18 155/84 97 03/02/16 04:00 80 03/02/16 03:08 77 03/02/16 02:00 77 03/02/16 01:00 77 03/02/16 00:00 76 03/02/16 00:00 98.5 77 18 149/97 97 03/01/16 23:00 76 03/01/16 22:00 79 03/01/16 21:00 78 03/01/16 20:00 76 03/01/16 20:00 98.5 76 18 153/89 97 03/01/16 19:00 78 03/01/16 18:00 78 03/01/16 17:20 98.7 71 18 99 138/70 03/01/16 17:00 74 03/01/16 16:00 73 03/01/16 15:00 70 03/01/16 14:00 72 03/01/16 13:00 75 03/01/16 12:27 98.5 69 18 96 148/82 03/01/16 12:00 74 03/01/16 11:00 70 03/01/16 10:01 160/76 03/01/16 10:00 79 I/O 03/01/16 03/01/16 03/01/16 03/02/16 03/02/16 03/02/16 07:00 15:00 23:00 07:00 15:00 23:00 Intake Total 300 ml 867 ml 1800 ml Output Total 1500 ml 1275 ml 725 ml Balance -1200 ml -408 ml 1075 ml Intake Oral 300 ml 600 ml 600 ml IV Total 267 ml 1200 ml Output Urine Total 1500 ml 1275 ml 725 ml (Kody Terry MD R1) Result Diagram: 03/02/16 0543 03/02/16 0543 Imaging Last Impressions Carotid Artery Ultrasound 03/01/16 0000 Signed Impressions: Service Date/Time: Tuesday, March 01, 2016 22:02 - CONCLUSION: Minimal bilateral bifurcation atherosclerotic plaque. No hemodynamically significant narrowing on either side. Troy Dean MD Upper Extremity Ultrasound 02/29/16 0000 Signed Impressions: Service Date/Time: Monday, February 29, 2016 15:06 - CONCLUSION: No DVT right upper extremity. Troy Dean MD Renal Ultrasound 02/29/16 0000 Signed Impressions: Service Date/Time: Monday, February 29, 2016 15:32 - CONCLUSION: 1. Both kidneys are mildly echogenic suggesting early chronic parenchymal disease. 2. No obstructive uropathy or other acute abnormality demonstrated. 3. Enlarged prostate. Troy Dean MD Head CT 02/29/16 0000 Signed Impressions: Service Date/Time: Monday, February 29, 2016 12:15 - CONCLUSION: Remote right thalamic infarct. Remigio Bill MD Chest X-Ray 02/28/16 1546 Signed Impressions: Service Date/Time: Sunday, February 28, 2016 15:47 - CONCLUSION: No evidence of acute cardiopulmonary disease. Troy Dean MD Objective Remarks GENERAL: Well-developed well-nourished adult male sitting up in bed appearing in no acute distress CARDIOVASCULAR: Normal rate, regularly irregular with extra beat approximately every fourth-fifth beat. S1/S2 normal, frequent PVCs audible. 2/6 systolic ejection murmur at right upper sternal border and apex of heart. RESPIRATORY: CTAB. No crackles or wheezes. GASTROINTESTINAL: Abdomen soft, non-distended, moderately tender to palpation of the right upper quadrant, no rebound, no guarding. No hepato-splenomegaly or palpable masses. MUSCULOSKELETAL: Extremities without clubbing, cyanosis, or edema. NEUROLOGICAL: Awake and alert. Cranial nerves II through XII intact. Strength 5/ 5 to elbow flexion/extension RUE (improved from previously). Strength 5 out of 5 in all other muscle groups. Sensation grossly intact throughout. Normal speech. Medications and IVs Current Medications Medications (Trade) Dose Ordered Sig/Ramakrishna Route Start Time Stop Time Status Last Admin (NS Flush) 2 ml UNSCH PRN IVF 02/28/16 16:00 03/02/16 08:36 (Norvasc) 10 mg DAILY PO 02/28/16 18:15 03/02/16 08:36 (Lipitor) 40 mg HS PO 02/28/16 21:00 03/01/16 20:26 (Coreg) 6.25 mg BID PO 02/28/16 21:00 03/02/16 08:36 (Plavix) 75 mg DAILY PO 02/28/16 18:15 03/02/16 08:36 (Lasix) 40 mg DAILY PO 02/29/16 09:00 Hold (Neurontin) 300 mg TID PO 02/29/16 09:00 03/02/16 08:36 (Apresoline) 25 mg Q8HR PO 02/28/16 22:00 03/02/16 05:33 (Protonix) 40 mg DAILY@06 PO 02/28/16 18:15 03/02/16 05:33 (KCl) 20 meq DAILY PO 02/29/16 09:00 03/02/16 08:36 (Tylenol) 650 mg Q6H PRN PO 02/28/16 19:00 (Roxicodone) 10 mg Q4H PRN PO 02/28/16 19:00 03/02/16 08:35 (Roxicodone) 5 mg Q4H PRN PO 02/28/16 19:00 03/01/16 06:22 (Aspirin) 325 mg DAILY PO 02/29/16 09:00 03/02/16 08:35 (Flexeril) 10 mg TID PRN PO 02/29/16 09:00 03/01/16 17:28 (Catapres) 0.1 mg Q6H PRN PO 02/28/16 21:30 03/01/16 01:59 (Ativan) 1 mg Q4H PRN PO 02/28/16 21:45 (Ativan Inj) 1 mg Q4H PRN IV PUSH 02/28/16 21:45 (Ativan) 2 mg Q2H PRN PO 02/28/16 21:45 (Ativan Inj) 2 mg Q2H PRN IV PUSH 02/28/16 21:45 (Ativan Inj) 2 mg Q1H PRN IV PUSH 02/28/16 21:45 (Ativan Inj) 2 mg Q15M PRN IV PUSH 02/28/16 21:45 Heparin Sodium (Porcine) 5000 units 5,000 units Q8HR SQ 02/29/16 22:00 03/02/16 05:33 (NS 1000 ml Inj) 1,000 ml @ 100 mls/hr Q10H IV 03/01/16 10:30 03/02/16 05:34 (Kasey-Colace) 2 tab BID PO 03/01/16 21:00 03/02/16 08:34 (Flomax) 0.4 mg DAILY PO 03/02/16 09:00 03/02/16 08:36 (Roxicodone) 5 mg Q4H PRN PO 03/02/16 09:30 (Kody Terry MD R1) A/P Assessment and Plan 56-year-old male with history of significant coronary artery disease and uncontrolled hypertension presenting with: Discharge Planning Home pending nephrology recs (Kody Terry MD R1) Attending Attestation Patient seen and examined. Case reviewed and discussed Agree with plan of care as discussed with me and documented in the resident note. RUE edema improved. Informed patient to keep arm elevated. No chest pain. Appreciate nephrology recs. (Cathleen Flores MD) Problem List: (1) Chest pain Status: Acute Plan: Acute onset chest pain and shortness of breath in setting of elevated troponin and no ST segment changes on EKG Echo 03/01/16 showing EF 55-60% and moderate aortic root dilation, no wall motion abnormality Telemetry showing frequent PVCs, otherwise normal Troponin: 0.09 --> 0.10 --> 0.08 BNP 115 * Cardiology consulted, appreciate their recommendations * Cardiology feels etiology of chest pain is arthritis and radiculopathy (known problem to patient) * Continue ASA and Plavix, beta isaac, statin * Follow up as outpatient * Telemetry * Tylenol and oxycodone as needed for pain, additional oxycodone 5 mg PRN for breakthrough (2) Weakness of right arm Status: Chronic Plan: Patient has history of "nerve impingement" of the right upper extremity causing numbness or tingling, however the weakness is a new symptom in the last 4 days. Per the patient he woke up with this symptom 4 days ago and it has improved somewhat but is still persistent. No prior history of stroke. Likely related to arthritis and radiculopathy. 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, no other infarct Carotid US with bilateral bifurcation plaques but no narrowing * Well outside window for tPA * Continue on aspirin, Plavix * Continue statin * F/U as outpatient * Outpatient PT/OT to be considered by PCP if continues to be bothersome (3) Hypertension Status: Acute Plan: Blood pressures still occasionally elevated but stable overnight and generally wnl * Continue home hydralazine * Continue home amlodipine * Continue home Coreg * Clonidine 0.1 mg every 6 hours as needed for blood pressure greater than 180/ 100 (4) [id number] kidney injury Status: Acute Plan: Creatinine approximately 2.50 on admission, baseline around 1.24 back in October Could be prerenal versus obstructive Renal U/S showing early chronic changes and distended bladder + enlarged prostate Cr 2.50 --> 2.22 --> 2.24 UA showing large proteinuria * NS at 100 cc/hr * Hold home Lasix given no clinical evidence of pulmonary edema or other fluid overload at this time * Tamulosin 0.4 mg PO daily * Bladder scan: if > 300 cc, place aggarwal * Renally dose medications * Follow-up BMP daily * Consult nephrology for recs re: f/u or dialysis (5) ETOH abuse Status: Chronic Plan: Per patient, he has not had anything to drink in quite some time and this is since he was last in the service years ago) * CIWA protocol (6) Dysuria Status: Acute Plan: Mild, associated with some frequency and hesitancy for which PCP was working him up for prostate issues UA showing large protein, mild occult blood * Start Flomax daily * F/u as outpatient (7) DVT prophylaxis Status: Acute Plan: SQH 5000 units TID (8) Nutrition, metabolism, and development symptoms Status: Acute Plan: Fluids: As above Electrolytes: Monitor and replace as needed Nutrition: Diet Heart Healthy (Kody Terry MD R1) Problem Qualifiers (1) Chest pain: Qualified Code: R07.9 - Chest pain, unspecified type (2) Hypertension: Qualified Code: I10 - Essential hypertension Kody Terry MD R1 Mar 02, 2016 10:10 Cathleen Flores MD Mar 02, 2016 15:38
--- NOTE | 2016-03-02 13:23 | PD.CONS ---
[facility] Service Nephrology Consult Requested By Dr. Terry Reason for Consult Acute on Chronic Renal decline Primary Care Physician Rosalba Quintero MD History of Present Illness The patient is a 56 yo AA male who presented to this facility on 02/27 with complaints of chest pain radiating down into arm. He also is complaining of LE edema that started approximately in August, but has recently been worsening. There is mention in his chart about hypertensive nephrosclerosis, but the patient is not aware of any history of renal decline. PMHx includes HTN that was only formally dx within the past 2 years (but question of longer diagnosis) , CAD s/p cardiac cath in September 2015, HLD, OA. Of note, he was complaining of dysuria and urinary hesitancy for the past several weeks. US showed prostatic enlargement. Denies any new medications recently. Also denies any NSAID use. Admitting SCr was 2.50 that improved to 2.24 at time of consult 11/22/15 SCr was 1.24, but otherwise baseline appears to be between 1.7-1.9 since Jan 2015 Prior SCr levels were in 0.8-0.9 range as per previous records. 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/16) 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 Past Medical History HTN CAD s/p cardiac cath September 2015 HLD OA Past Surgical History Denies (besides cath) Reported Medications Reported Meds & Active Scripts Active Furosemide 40 Mg Tab 40 Mg PO DAILY Atorvastatin (Atorvastatin Calcium) 40 Mg Tab 40 Mg PO HS Plavix (Clopidogrel Bisulfate) 75 Mg Tab 75 Mg PO DAILY Hydralazine (Hydralazine HCl) 25 Mg Tab 25 Mg PO Q8HR takes 3 tabs every 8 hours Potassium Chloride ER (Potassium Chloride) 20 Meq Tab 20 Meq PO DAILY Protonix (Pantoprazole Sodium) 40 Mg Tab 40 Mg PO DAILY Amlodipine (Amlodipine Besylate) 10 Mg Tab 10 Mg PO DAILY Flexeril (Cyclobenzaprine HCl) 10 Mg Tab 10 Mg PO TID Reported Gabapentin 300 Mg Cap 300 Mg PO TID Carvedilol 6.25 Mg Tab 6.25 Mg PO BID Baclofen 10 Mg Tab 10 Mg PO TID PRN Active Ordered Medications Current Medications Medications (Trade) Dose Ordered Sig/Ramakrishna Route Start Time Stop Time Status Last Admin (NS Flush) 2 ml UNSCH PRN IVF 02/28/16 16:00 03/02/16 08:36 (Norvasc) 10 mg DAILY PO 02/28/16 18:15 03/02/16 08:36 (Lipitor) 40 mg HS PO 02/28/16 21:00 03/01/16 20:26 (Coreg) 6.25 mg BID PO 02/28/16 21:00 03/02/16 08:36 (Plavix) 75 mg DAILY PO 02/28/16 18:15 03/02/16 08:36 (Lasix) 40 mg DAILY PO 02/29/16 09:00 Hold (Neurontin) 300 mg TID PO 02/29/16 09:00 03/02/16 12:53 (Apresoline) 25 mg Q8HR PO 02/28/16 22:00 03/02/16 05:33 (Protonix) 40 mg DAILY@06 PO 02/28/16 18:15 03/02/16 05:33 (KCl) 20 meq DAILY PO 02/29/16 09:00 03/02/16 08:36 (Tylenol) 650 mg Q6H PRN PO 02/28/16 19:00 (Roxicodone) 10 mg Q4H PRN PO 02/28/16 19:00 03/02/16 12:56 (Roxicodone) 5 mg Q4H PRN PO 02/28/16 19:00 03/01/16 06:22 (Aspirin) 325 mg DAILY PO 02/29/16 09:00 03/02/16 08:35 (Flexeril) 10 mg TID PRN PO 02/29/16 09:00 03/01/16 17:28 (Catapres) 0.1 mg Q6H PRN PO 02/28/16 21:30 03/01/16 01:59 (Ativan) 1 mg Q4H PRN PO 02/28/16 21:45 (Ativan Inj) 1 mg Q4H PRN IV PUSH 02/28/16 21:45 (Ativan) 2 mg Q2H PRN PO 02/28/16 21:45 (Ativan Inj) 2 mg Q2H PRN IV PUSH 02/28/16 21:45 (Ativan Inj) 2 mg Q1H PRN IV PUSH 02/28/16 21:45 (Ativan Inj) 2 mg Q15M PRN IV PUSH 02/28/16 21:45 Heparin Sodium (Porcine) 5000 units 5,000 units Q8HR SQ 02/29/16 22:00 03/02/16 05:33 (NS 1000 ml Inj) 1,000 ml @ 100 mls/hr Q10H IV 03/01/16 10:30 03/02/16 05:34 (Kasey-Colace) 2 tab BID PO 03/01/16 21:00 03/02/16 08:34 (Flomax) 0.4 mg DAILY PO 03/02/16 09:00 03/02/16 08:36 (Roxicodone) 5 mg Q4H PRN PO 03/02/16 09:30 Family History Mother has Crohn's disease. Likely had HTN and potential PVD as the patient reports she had her LLE amputated. No known FHx of renal disease. Social History Denies current smoking, but did say he was a former smoker who quit in August---1 pack every 3 days Denies any tobacco use No illicit drug use (Kelley Lora) Physical Exam Vital Signs Vital Signs Date Time Temp Pulse Resp B/P Pulse Ox O2 Delivery O2 Flow Rate FiO2 03/02/16 11:00 74 03/02/16 11:00 98.7 70 18 140/85 98 03/02/16 10:00 77 03/02/16 09:05 98 21 03/02/16 09:00 81 03/02/16 08:00 75 03/02/16 07:00 76 03/02/16 07:00 95.5 77 16 127/90 98 03/02/16 05:03 78 03/02/16 04:00 98.5 74 18 155/84 97 03/02/16 04:00 80 03/02/16 03:08 77 03/02/16 02:00 77 03/02/16 01:00 77 03/02/16 00:00 76 03/02/16 00:00 98.5 77 18 149/97 97 03/01/16 23:00 76 03/01/16 22:00 79 03/01/16 21:00 78 03/01/16 20:00 76 03/01/16 20:00 98.5 76 18 153/89 97 03/01/16 19:00 78 03/01/16 18:00 78 03/01/16 17:20 98.7 71 18 99 138/70 03/01/16 17:00 74 03/01/16 16:00 73 03/01/16 15:00 70 03/01/16 14:00 72 Physical Exam GENERAL: NAD SKIN: Warm and dry. HEAD: Atraumatic. Normocephalic. EYES: Pupils equal and round. No scleral icterus. No injection or drainage. ENT: No nasal bleeding or discharge. Mucous membranes pink and moist. NECK: Trachea midline. No JVD. CARDIOVASCULAR: Regular rate and rhythm. RESPIRATORY: No accessory muscle use. Clear to auscultation. Breath sounds equal bilaterally. GASTROINTESTINAL: Abdomen soft, non-tender, nondistended. Hepatic and splenic margins not palpable. MUSCULOSKELETAL: Extremities without clubbing, cyanosis. No obvious deformities. Trace to 1+ pitting edema BLE up to knees. NEUROLOGICAL: Awake and alert. No obvious cranial nerve deficits. Normal speech. PSYCHIATRIC: Appropriate mood and affect; insight and judgment normal. Laboratory Laboratory Tests Test 03/02/16 05:43 White Blood Count 10.1 Red Blood Count 3.37 Hemoglobin 11.1 Hematocrit 32.8 Mean Corpuscular Volume 97.5 Mean Corpuscular Hemoglobin 32.9 Mean Corpuscular Hemoglobin 33.7 Concent Red Cell Distribution Width 14.9 Platelet Count 227 Mean Platelet Volume 9.2 Neutrophils (%) (Auto) 64.6 Lymphocytes (%) (Auto) 25.8 Monocytes (%) (Auto) 5.4 Eosinophils (%) (Auto) 3.8 Basophils (%) (Auto) 0.4 Neutrophils # (Auto) 6.6 Lymphocytes # (Auto) 2.6 Monocytes # (Auto) 0.5 Eosinophils # (Auto) 0.4 Basophils # (Auto) 0.0 CBC Comment DIFF FINAL Differential Comment Sodium Level 142 Potassium Level 4.2 Chloride Level 110 Carbon Dioxide Level 23.6 Anion Gap 8 Blood Urea Nitrogen 24 Creatinine 2.24 Estimat Glomerular Filtration 37 Rate Random Glucose 83 Calcium Level 7.7 (Kelley Lora) Result Diagram: 03/02/16 0543 03/02/16 0543 Imaging Last Impressions Carotid Artery Ultrasound 03/01/16 0000 Signed Impressions: Service Date/Time: Tuesday, March 01, 2016 22:02 - CONCLUSION: Minimal bilateral bifurcation atherosclerotic plaque. No hemodynamically significant narrowing on either side. Troy Dean MD Upper Extremity Ultrasound 02/29/16 0000 Signed Impressions: Service Date/Time: Monday, February 29, 2016 15:06 - CONCLUSION: No DVT right upper extremity. Troy Dean MD Renal Ultrasound 02/29/16 0000 Signed Impressions: Service Date/Time: Monday, February 29, 2016 15:32 - CONCLUSION: 1. Both kidneys are mildly echogenic suggesting early chronic parenchymal disease. 2. No obstructive uropathy or other acute abnormality demonstrated. 3. Enlarged prostate. Troy Dean MD Head CT 02/29/16 0000 Signed Impressions: Service Date/Time: Monday, February 29, 2016 12:15 - CONCLUSION: Remote right thalamic infarct. Remigio Bill MD Chest X-Ray 02/28/16 1546 Signed Impressions: Service Date/Time: Sunday, February 28, 2016 15:47 - CONCLUSION: No evidence of acute cardiopulmonary disease. Troy Dean MD (Kelley Lora) Assessment and Plan Problem List: (1) Acute on chronic renal insufficiency Plan: Baseline SCr appears to be around 1.7-1.9 Acute renal decline presently of uncertain etiology. Potential of underlying volume depletion as his functions have improved with IVF. Renal US does show increased echogenicity which is consistent with chronic renal disease. He also has an enlarged prostate. Question of bladder outlet obstruction although no hydronephrosis identified on renal US. Monitor I&O's. There was mention in the primary's note regarding dialysis. There is no indication for dialysis at the present. He has significant hypoalbuminemia and proteinuria which raises concern for other issues, namely an FSGS (could be primary or secondary) versus potential hepatic illness. Will check 24h urine for quantification of protein. Check complement levels, MISTY, ANCA, as well as hepatic functions and hepatitis panel. To continue on IVF for the present. He does have some edema, so IVF will likely have to be discontinued tomorrow if the patient is eating and drinking well on his own. Medications should be adjusted for the patient's renal decline. Avoid nephrotoxic medications including iodinated contrast dyes and NSAIDs. Avoid gadolinium when eGFR <30. (2) Hypertension Plan: Improved today. Monitor. (3) Proteinuria Plan: See above (4) Chest pain Plan: Mgmt as per primary/cardiology (5) Prostate enlargement Plan: Monitor I&Os. Would recommend urological consult as outpatient. Continue on Flomax. (Kelley Lora) Assessment and Plan The exam, history, and the medical decision-making described in the above note were completed with the assistance of the FINN. I reviewed and agree with the findings presented. (Radha Marie MD) Problem Qualifiers (1) Hypertension: Qualified Code: I10 - Essential hypertension (2) Chest pain: Qualified Code: R07.9 - Chest pain, unspecified type Kelley Lora Mar 02, 2016 13:23 Radha Marie MD Mar 04, 2016 16:14
[2016-03-02] MEDS: ATORVASTATIN 40 MG TAB PO SCH (19:52)
[2016-03-02] MEDS: LORazepam 1 MG TAB PO PRN (21:17)
[2016-03-03] VITALS (25 sets, daily range): BP systolic 141–182; BP diastolic 88–109; PULSE 73–91; RESP 18–20; TEMP 98–98.6; O2SAT 97–100
[2016-03-03] MEDS: cloNIDine HCL 0.1 MG TAB PO PRN ×2 (00:09→18:26)
[2016-03-03] MEDS: SODIUM CHLOR 0.9% 1000 ML INJ 1,000 ML IV SCH ×2 (02:30→06:47)
[2016-03-03] MEDS: HEPARIN SODIUM - SQ 10,000 UNITS/ML VIAL SQ SCH ×3 (06:46→21:16)
[2016-03-03] MEDS: PANTOPRAZOLE SOD 40 MG DELAYED RELEASE TAB PO SCH (06:46)
[2016-03-03] MEDS: hydrALAZINE HCL 25 MG TAB PO SCH ×3 (06:46→21:16)
[2016-03-03] MEDS: ASPIRIN 325 MG TAB PO SCH (08:10)
[2016-03-03] MEDS: GABAPENTIN 300 MG CAP PO SCH ×2 (08:10→20:06)
[2016-03-03] MEDS: TAMSULOSIN HCL 0.4 MG CAP PO SCH (08:10)
[2016-03-03] MEDS: CLOPIDOGREL 75 MG TAB PO SCH (08:10)
[2016-03-03] MEDS: POTASSIUM CHLORIDE 20 MEQ CONTROLLED RELEASE TAB PO SCH (08:11)
[2016-03-03] MEDS: DOCUSATE SODIUM 50 MG/SENNA 8.6 MG TAB PO SCH ×2 (08:11→20:10)
[2016-03-03] MEDS: CARVEDILOL 6.25 MG TAB PO SCH ×2 (08:11→20:06)
[2016-03-03 08:30] LABS: BASOPHIL % 0.5 % (0.0-2.0); EOSINOPHIL # 0.4 TH/MM3 (0-0.4); EOSINOPHIL % 4.4 % (0.0-4.0); HEMATOCRIT 33.4 % (39.0-51.0); HEMO FLAGS DIFF FINAL; LYMPH % 25.6 % (9.0-44.0); LYMPHOCYTE # 2.4 TH/MM3 (1.0-4.8); MEAN CELL VOLUME 97.3 FL (80.0-100.0); MEAN CORPUSCULAR HEMOGLOBIN 32.6 PG (27.0-34.0); MEAN CORPUSCULAR HGB CONC 33.5 % (32.0-36.0); MONO % 6.1 % (0.0-8.0); NEUT % 63.4 % (16.0-70.0); PLATELET COUNT 239 TH/MM3 (150-450); RED BLOOD COUNT 3.44 MIL/MM3 (4.50-5.90); RED CELL DISTRIBUTION WIDTH 14.6 % (11.6-17.2); WHITE BLOOD COUNT 9.5 TH/MM3 (4.0-11.0)
[2016-03-03 08:48] LABS: BICARBONATE 24.2 MEQ/L (21.0-32.0); POTASSIUM 4.6 MEQ/L (3.5-5.1)
[2016-03-03] MEDS ORDERED: hydrALAZINE HCL 25 MG TAB PO ONE (09:00)
[2016-03-03 09:01] LABS: KAPPA LAMBDA RATIO 1.78 (1.57-3.93); TOTAL PROTEIN SPE 4.8 GM/DL (6.0-7.6)
[2016-03-03 15:10] LABS: ANA SCREEN NEG (NEG)
[2016-03-03 15:51] LABS: URINE TOTAL PROTEIN TIMED 245.3 MG/DL
--- NOTE | 2016-03-03 15:56 | RADRPT ---
EXAM DATE/TIME: 03/03/2016 14:29 [facility] COMPARISON: No previous studies available for comparison. INDICATIONS : Rotator cuff tear. Right shoulder pain. MEDICAL HISTORY : Hypertension. Cardiovascular disease SURGICAL HISTORY : None. ENCOUNTER: Subsequent ACUITY: 4-6 days PAIN SCORE: 4/10 LOCATION: Right shoulder. TECHNIQUE: Multiplanar, multisequence MRI examination was performed without contrast. FINDINGS: The examination is degraded by motion artifact. No full-thickness rotator cuff tear is identified. Th ere is some mild rotator cuff tendinopathy. Trace fluid is present in the subacromial/subdeltoid burs a and around the subscapularis tendon. No significant joint effusion. No discrete labral abnormality identified although this is degraded by motion. No fractures seen. Acromioclavicular joint appears in tact with mild degenerative change. CONCLUSION: 1. Exam degraded by motion. No full-thickness rotator cuff tear identified. Mild rotator cuff tendino juan antonio. Trace fluid in the subacromial/subdeltoid bursa and around the subscapularis tendon. No joint effusion. Mild osteoarthritis of the right a.c. joint. Todd Clements MD on March 03, 2016 at 15:50 Board Certified Radiologist. This report was verified electronically.
--- NOTE | 2016-03-03 18:14 | HHI.FPPN ---
Subjective Remarks Late Entry (Patient seen at ~0830): Mr. Stiles was afebrile with hypertension overnight (SBP 180). Patient reports that he has been doing well overall; he reports improvement in his chest pain reports that he still has right shoulder pain and epigastric pain. Patient states that his shoulder pain is mildly improved but still significant, ranging from 47/10 in severity. No reported shortness of breath. Patient eating well. 2 bowel movements overnight per EMR. (Nirmal Cline MD R2) Objective Vitals Vital Signs Date Time Temp Pulse Resp B/P Pulse Ox O2 Delivery O2 Flow Rate FiO2 03/03/16 17:44 91 03/03/16 16:01 73 03/03/16 15:45 79 03/03/16 15:45 98.2 79 18 98 03/03/16 15:21 18 03/03/16 14:01 78 03/03/16 13:04 77 03/03/16 12:52 18 03/03/16 12:03 77 03/03/16 11:15 98.2 78 18 141/88 100 03/03/16 11:15 78 03/03/16 11:06 98 21 03/03/16 10:01 89 03/03/16 09:28 81 03/03/16 08:15 98.4 79 18 180/109 99 Manual Cuff/Auscultation Automatic Cuff 03/03/16 08:15 79 03/03/16 06:00 76 03/03/16 05:06 76 03/03/16 04:00 98.0 74 20 160/102 98 03/03/16 04:00 76 03/03/16 03:22 81 03/03/16 02:00 84 03/03/16 01:00 84 03/03/16 00:00 98.5 86 18 179/100 97 03/03/16 00:00 81 03/02/16 23:00 92 03/02/16 22:34 97 21 03/02/16 22:00 85 03/02/16 21:00 82 03/02/16 20:00 98.6 96 18 180/100 97 03/02/16 20:00 88 03/02/16 19:00 85 03/02/16 18:00 79 I/O 03/02/16 03/02/16 03/02/16 03/03/1603/03/17 1/4/17 07:00 15:00 23:00 07:00 15:00 23:00 Intake Total 1800 ml 2234 ml 620 ml Output Total 725 ml 1400 ml 1350 ml Balance 1075 ml 834 ml -730 ml Intake Oral 600 ml 1200 ml 520 ml IV Total 1200 ml 1034 ml 100 ml Output Urine Total 725 ml 1400 ml 1350 ml Bladder Scan Volume Amount 62 ml # Bowel Movements 1 1 (Nirmal Cline MD R2) Result Diagram: 03/03/16 0755 03/03/16 0755 Imaging Last Impressions Shoulder MRI 03/03/16 0000 Signed Impressions: Service Date/Time: Thursday, March 03, 2016 14:29 - CONCLUSION: 1. Exam degraded by motion. No full-thickness rotator cuff tear identified. Mild rotator cuff tendinopathy. Trace fluid in the subacromial/subdeltoid bursa and around the subscapularis tendon. No joint effusion. Mild osteoarthritis of the right a.c. joint. Todd Clements MD Carotid Artery Ultrasound 03/01/16 0000 Signed Impressions: Service Date/Time: Tuesday, March 01, 2016 22:02 - CONCLUSION: Minimal bilateral bifurcation atherosclerotic plaque. No hemodynamically significant narrowing on either side. Troy Dean MD Upper Extremity Ultrasound 02/29/16 0000 Signed Impressions: Service Date/Time: Monday, February 29, 2016 15:06 - CONCLUSION: No DVT right upper extremity. Troy Dean MD Renal Ultrasound 02/29/16 0000 Signed Impressions: Service Date/Time: Monday, February 29, 2016 15:32 - CONCLUSION: 1. Both kidneys are mildly echogenic suggesting early chronic parenchymal disease. 2. No obstructive uropathy or other acute abnormality demonstrated. 3. Enlarged prostate. Troy Dean MD Head CT 02/29/16 0000 Signed Impressions: Service Date/Time: Monday, February 29, 2016 12:15 - CONCLUSION: Remote right thalamic infarct. Remigio Bill MD Chest X-Ray 02/28/16 1546 Signed Impressions: Service Date/Time: Sunday, February 28, 2016 15:47 - CONCLUSION: No evidence of acute cardiopulmonary disease. Troy Dean MD Objective Remarks GENERAL: Well-developed well-nourished adult male sitting up in bed appearing in no acute distress CARDIOVASCULAR: Normal rate, irregular rhythm. S1/S2 normal, frequent PVCs audible. 2/6 systolic ejection murmur at right upper sternal border and apex of heart. RESPIRATORY: CTAB. No crackles or wheezes. GASTROINTESTINAL: Abdomen soft, non-distended, moderately tender to palpation of epigastrium/right upper quadrant, no rebound, no guarding. No hepato- splenomegaly or palpable masses. MUSCULOSKELETAL: Extremities without clubbing, cyanosis, or edema. NEUROLOGICAL: Awake and alert. Cranial nerves II through XII intact. Strength 5/ 5 to elbow flexion/extension RUE (improved from previously) to 90 degrees, cannot bring arm above level of shoulders. Strength grossly normal otherwise. Sensation grossly intact throughout. Normal speech. (Nirmal Cline MD R2) A/P Assessment and Plan 56-year-old male with history of significant coronary artery disease and uncontrolled hypertension presenting with: Discharge Planning Home pending nephrology recs (Nirmal Cline MD R2) Attending Attestation Patient seen and examined. Case reviewed and discussed Agree with plan of care as discussed with me and documented in the resident note. (Cathleen Flores MD) Problem List: (1) Hypertension Status: Acute Plan: Impression: Persistent hypertension over hospitalization * Increase hydralazine 50 mg q8hrs * Continue home amlodipine * Continue home Coreg; will increase -If hypertension persistent, we'll plan to increase Coreg to 12.5mg BID * Clonidine 0.1 mg every 6 hours as needed for blood pressure greater than 180/ 100 (2) Weakness of right arm Status: Chronic Plan: -Will check MRI shoulder to assess for tendon rupture -No full thickness rotator cuff identified; mild rotator cuff tendinopathy. Trace fluid in subacromial/subdeltoid bursa and around subscapularis tendon. Mild osteoarthritis and right HC joint. -Continue PT/OT; plan for continued treatment as outpatient Impression: Patient has history of "nerve impingement" of the right upper extremity causing numbness or tingling, however the weakness is a new symptom in the last 4 days. Per the patient he woke up with this symptom 4 days prior to admission and it has improved somewhat but is still persistent. No prior history of stroke. Likely related to arthritis and radiculopathy. 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, no other infarct Carotid US with bilateral bifurcation plaques but no narrowing (3) [id number] kidney injury Status: Acute Plan: Impression: Creatinine approximately 2.50 on admission, baseline around 1.24 back in October Could be prerenal versus obstructive Renal U/S showing early chronic changes and distended bladder + enlarged prostate Cr 2.50 --> 2.22 --> 2.24 UA showing large proteinuria 03/02: Stark placed due to retention overnight 03/02 Nephrology consulted: -NS at 100 cc/hr; will discontinue due to improved oral intake -Check complement, MISTY, ANCA, hepatitis panel -Renally dose medications -Hold home Lasix given no clinical evidence of pulmonary edema or other fluid overload at this time -Tamulosin 0.4 mg PO daily; will change to HS -Follow-up BMP daily (4) Chest pain Status: Resolved Plan: Acute onset chest pain and shortness of breath in setting of elevated troponin and no ST segment changes on EKG Echo 03/01/16 showing EF 55-60% and moderate aortic root dilation, no wall motion abnormality Telemetry showing frequent PVCs, otherwise normal Troponin: 0.09 --> 0.10 --> 0.08 BNP 115 -Cardiology consulted, appreciate their recommendations * Cardiology feels etiology of chest pain is arthritis and radiculopathy (known problem to patient) * Continue ASA and Plavix, beta isaac, statin * Control HTN * Follow up as outpatient -Telemetry -Tylenol and oxycodone as needed for pain, additional oxycodone 5 mg PRN for breakthrough (5) ETOH abuse Status: Chronic Plan: Per patient, he has not had anything to drink in quite some time and this is since he was last in the service years ago) * CIWA protocol (6) Dysuria Status: Acute Plan: Mild, associated with some frequency and hesitancy for which PCP was working him up for prostate issues UA showing large protein, mild occult blood * Continue flomax * F/u as outpatient (7) DVT prophylaxis Status: Acute Plan: SQH 5000 units TID (8) Nutrition, metabolism, and development symptoms Status: Acute Plan: Fluids: Will discontinue; none at this time Electrolytes: Monitor and replace as needed Nutrition: Diet Heart Healthy (Nirmal Cline MD R2) Problem Qualifiers (1) Hypertension: Qualified Code: I10 - Essential hypertension (2) Chest pain: Qualified Code: R07.9 - Chest pain, unspecified type Nirmal Cline MD R2 Mar 03, 2016 18:14 Cathleen Flores MD Mar 04, 2016 16:24
--- NOTE | 2016-03-03 19:21 | HHI.NPPN ---
Subjective History of Present Illness The patient is a 56 yo AA male who presented to this facility on 02/27 with complaints of chest pain radiating down into arm. He also is complaining of LE edema that started approximately in August, but has recently been worsening. There is mention in his chart about hypertensive nephrosclerosis, but the patient is not aware of any history of renal decline. PMHx includes HTN that was only formally dx within the past 2 years (but question of longer diagnosis) , CAD s/p cardiac cath in September 2015, HLD, OA. Of note, he was complaining of dysuria and urinary hesitancy for the past several weeks. US showed prostatic enlargement. Denies any new medications recently. Also denies any NSAID use. Admitting SCr was 2.50 that improved to 2.24 at time of consult 11/22/15 SCr was 1.24, but otherwise baseline appears to be between 1.7-1.9 since Jan 2015 Prior SCr levels were in 0.8-0.9 range as per previous records. Interval History Patient had no verbal complaints today. Objective Data Data 03/02/16 03/03/16 19:00 07:00 Intake Total 2234 ml 620 ml Output Total 1400 ml 1350 ml Balance 834 ml -730 ml Intake Oral 1200 ml 520 ml IV Total 1034 ml 100 ml Output Urine Total 1400 ml 1350 ml Bladder Scan Volume Amount 62 ml # Bowel Movements 1 1 Vital Signs Date Time Temp Pulse Resp B/P Pulse Ox O2 Delivery O2 Flow Rate FiO2 03/03/16 18:26 73 18 182/106 98 03/03/16 18:09 83 03/03/16 17:44 91 03/03/16 16:01 73 03/03/16 15:45 79 03/03/16 15:45 98.2 79 18 180/99 98 03/03/16 15:21 18 03/03/16 14:01 78 03/03/16 13:04 77 03/03/16 12:52 18 03/03/16 12:03 77 03/03/16 11:15 98.2 78 18 141/88 100 03/03/16 11:15 78 03/03/16 11:06 98 21 03/03/16 10:01 89 03/03/16 09:28 81 03/03/16 08:15 98.4 79 18 180/109 99 Manual Cuff/Auscultation Automatic Cuff 03/03/16 08:15 79 03/03/16 06:00 76 03/03/16 05:06 76 03/03/16 04:00 98.0 74 20 160/102 98 03/03/16 04:00 76 03/03/16 03:22 81 03/03/16 02:00 84 03/03/16 01:00 84 03/03/16 00:00 98.5 86 18 179/100 97 03/03/16 00:00 81 03/02/16 23:00 92 03/02/16 22:34 97 21 03/02/16 22:00 85 03/02/16 21:00 82 03/02/16 20:00 98.6 96 18 180/100 97 03/02/16 20:00 88 03/02/16 19:00 85 -: 03/03/16 0755 03/03/16 0755 Physical Exam General Appearance: Well Developed, Well Nourished, No Acute Distress, Comfortable Pulmonary Resp Exam: Clear Bilaterally, Breath Sounds Equal Cardiology CV Exam: Regular, Normal Sinus Rhythm Gastrointestinal/Abdomen GI Exam: Soft, Non-Tender Musculoskeletal MS Exam: Joints Intact Integumentary Skin Exam: Clear, Warm, Dry Extremeties Extremities Exam: Trace Edema Assessment/Plan Problem List: (1) Acute on chronic renal insufficiency Plan: Patient's renal function does appear to be improving however the patient has very heavy proteinuria over 10,000 mg with associated hypoalbuminemia. Severity of his proteinuria is more than would be expected from nephrosclerosis from hypertension per se. Differential diagnosis at this point in time would include focal segmental glomerulosclerosis primary versus secondary, membranous disease and less likely minimal change disease in view of the deterioration in the patient's GFR. I discussed with the patient importance of making a definitive diagnosis which may aid in preserving and or improving his renal function. I also discussed with him indications, alternatives and risks associated with kidney biopsy. He was informed that the risk is generally said to be approximately 1 in 1000 for development of a serious complications such as hemorrhage, need for blood transfusion, development of AV fistula, need for nephrectomy. There is also a small risk of associated with biopsy as discussed with him. He was advised that if he does have potentially treatable pathology that is not diagnosed a could increase his chances of progressing towards end-stage renal disease with requirement for renal replacement therapy. The patient is presently on Plavix and aspirin which would have to be discontinued several days prior to the biopsy and cardiology input in this regard would be appreciated if the patient does agree to biopsy. Serological studies still pending but so far there is no evidence of hepatitis C or B based on results to date. Medications should be adjusted for the patient's renal decline. Avoid nephrotoxic medications including iodinated contrast dyes and NSAIDs. Avoid gadolinium when eGFR <30. (2) Hypertension Plan: Improved today. Monitor. (3) Proteinuria Plan: Nephrotic range with associated hypoalbuminemia. (4) Chest pain Plan: Mgmt as per primary/cardiology (5) Prostate enlargement Plan: Monitor I&Os. Would recommend urological consult as outpatient. Continue on Flomax. Problem Qualifiers (1) Hypertension: Qualified Code: I10 - Essential hypertension (2) Chest pain: Qualified Code: R07.9 - Chest pain, unspecified type Radha Marie MD Mar 03, 2016 19:21
[2016-03-03] MEDS: CHOLECALCIFEROL (VIT D3) 1000 UNIT TAB PO SCH (20:05)
[2016-03-03] MEDS: ATORVASTATIN 40 MG TAB PO SCH (20:06)
[2016-03-03 22:17] LABS: ALBUMIN SPE 1.51 GM/DL (3.50-5.00); ALPHA 1 GLOBULIN 0.35 GM/DL (0.11-0.29); ALPHA 2 GLOBULIN 1.3 GM/DL (0.22-1.00); BETA GLOBULINS (SPE) 0.9 GM/DL (0.53-1.03)
[2016-03-04] VITALS (27 sets, daily range): BP systolic 144–172; BP diastolic 79–96; PULSE 68–97; RESP 16–20; TEMP 98–99.3; O2SAT 95–100
[2016-03-04] MEDS: hydrALAZINE HCL 25 MG TAB PO SCH ×3 (05:22→22:21)
[2016-03-04] MEDS: PANTOPRAZOLE SOD 40 MG DELAYED RELEASE TAB PO SCH (05:22)
[2016-03-04] MEDS: HEPARIN SODIUM - SQ 10,000 UNITS/ML VIAL SQ SCH ×3 (05:23→22:21)
[2016-03-04 06:08] LABS: AUTOMATED NEUTROPHIL # 6.7 TH/MM3 (1.8-7.7); BASOPHIL % 0.5 % (0.0-2.0); EOSINOPHIL # 0.5 TH/MM3 (0-0.4); EOSINOPHIL % 4.7 % (0.0-4.0); HEMATOCRIT 30.6 % (39.0-51.0); HEMO FLAGS DIFF FINAL; LYMPH % 20.1 % (9.0-44.0); MEAN CELL VOLUME 96.8 FL (80.0-100.0); MEAN CORPUSCULAR HEMOGLOBIN 32.8 PG (27.0-34.0); MEAN CORPUSCULAR HGB CONC 33.9 % (32.0-36.0); MONO % 6.4 % (0.0-8.0); NEUT % 68.3 % (16.0-70.0); PLATELET COUNT 237 TH/MM3 (150-450); RED BLOOD COUNT 3.17 MIL/MM3 (4.50-5.90); RED CELL DISTRIBUTION WIDTH 14.6 % (11.6-17.2); WHITE BLOOD COUNT 9.8 TH/MM3 (4.0-11.0)
[2016-03-04 06:21] LABS: BICARBONATE 22.3 MEQ/L (21.0-32.0); POTASSIUM 4.7 MEQ/L (3.5-5.1)
[2016-03-04] MEDS: POTASSIUM CHLORIDE 20 MEQ CONTROLLED RELEASE TAB PO SCH (10:29)
[2016-03-04] MEDS: CLOPIDOGREL 75 MG TAB PO SCH (10:29)
[2016-03-04] MEDS: ASPIRIN 325 MG TAB PO SCH (10:30)
[2016-03-04] MEDS: CHOLECALCIFEROL (VIT D3) 1000 UNIT TAB PO SCH (10:30)
[2016-03-04] MEDS: GABAPENTIN 300 MG CAP PO SCH ×2 (10:31→20:11)
[2016-03-04] MEDS: CARVEDILOL 6.25 MG TAB PO SCH ×2 (10:31→20:12)
[2016-03-04] MEDS: DOCUSATE SODIUM 50 MG/SENNA 8.6 MG TAB PO SCH ×2 (10:31→20:13)
--- NOTE | 2016-03-04 14:59 | HHI.FPPN ---
Subjective Remarks No acute events overnight. Afebrile, BP still elevated up to 180s. Chest pain somewhat improved, abdominal pain stable. Mild SOB stable. Shoulder pain improving with continued movement. (Kody Terry MD R1) Objective Vitals Vital Signs Date Time Temp Pulse Resp B/P Pulse Ox O2 Delivery O2 Flow Rate FiO2 03/04/16 14:00 77 03/04/16 13:00 84 03/04/16 12:00 83 03/04/16 11:00 98.0 84 20 160/94 100 03/04/16 11:00 97 03/04/16 10:00 80 03/04/16 09:00 80 03/04/16 08:57 98 21 03/04/16 08:00 91 03/04/16 07:00 98.8 89 16 144/79 99 03/04/16 07:00 84 03/04/16 06:00 68 03/04/16 05:00 79 03/04/16 04:00 89 03/04/16 03:00 89 03/04/16 03:00 98.1 89 18 164/92 95 03/04/16 02:00 85 03/04/16 01:00 79 03/04/16 00:00 83 03/04/16 00:00 98.2 83 18 160/93 99 03/03/16 23:00 82 03/03/16 22:00 80 03/03/16 21:00 83 03/03/16 20:00 83 03/03/16 19:00 87 03/03/16 19:00 98.6 86 18 181/90 98 03/03/16 18:26 73 18 182/106 98 03/03/16 18:09 83 03/03/16 17:44 91 03/03/16 16:01 73 03/03/16 15:45 79 03/03/16 15:45 98.2 79 18 180/99 98 03/03/16 15:21 18 I/O 03/03/16 03/03/16 03/03/16 03/04/16 03/04/16 03/04/16 06:59 14:59 22:59 06:59 14:59 22:59 Intake Total 620 ml 2000 ml 960 ml Output Total 1350 ml 1900 ml 1550 ml Balance -730 ml 100 ml -590 ml Intake Oral 520 ml 1200 ml 960 ml IV Total 100 ml 800 ml Output Urine Total 1350 ml 1900 ml 1550 ml # Bowel Movements 1 1 0 (Kody Terry MD R1) Result Diagram: 03/04/1612 03/04/16 0512 Imaging Last Impressions Shoulder MRI 03/03/16 0000 Signed Impressions: Service Date/Time: Thursday, March 03, 2016 14:29 - CONCLUSION: 1. Exam degraded by motion. No full-thickness rotator cuff tear identified. Mild rotator cuff tendinopathy. Trace fluid in the subacromial/subdeltoid bursa and around the subscapularis tendon. No joint effusion. Mild osteoarthritis of the right a.c. joint. Todd Clements MD Carotid Artery Ultrasound 03/01/16 0000 Signed Impressions: Service Date/Time: Tuesday, March 01, 2016 22:02 - CONCLUSION: Minimal bilateral bifurcation atherosclerotic plaque. No hemodynamically significant narrowing on either side. Troy Dean MD Upper Extremity Ultrasound 02/29/16 0000 Signed Impressions: Service Date/Time: Monday, February 29, 2016 15:06 - CONCLUSION: No DVT right upper extremity. Troy Dean MD Renal Ultrasound 02/29/16 0000 Signed Impressions: Service Date/Time: Monday, February 29, 2016 15:32 - CONCLUSION: 1. Both kidneys are mildly echogenic suggesting early chronic parenchymal disease. 2. No obstructive uropathy or other acute abnormality demonstrated. 3. Enlarged prostate. Troy Dean MD Head CT 02/29/16 0000 Signed Impressions: Service Date/Time: Monday, February 29, 2016 12:15 - CONCLUSION: Remote right thalamic infarct. Remigio Bill MD Chest X-Ray 02/28/16 1546 Signed Impressions: Service Date/Time: Sunday, February 28, 2016 15:47 - CONCLUSION: No evidence of acute cardiopulmonary disease. rToy Dean MD Objective Remarks GENERAL: Well-developed well-nourished adult male sitting up in bed appearing in no acute distress CARDIOVASCULAR: Normal rate, regular rhythm. S1/S2 normal, 2/6 systolic ejection murmur at right upper sternal border and apex of heart. RESPIRATORY: CTAB. No crackles or wheezes. GASTROINTESTINAL: Abdomen soft, non-distended, moderately tender to palpation of epigastrium/right upper quadrant, no rebound, no guarding. No hepato- splenomegaly or palpable masses. MUSCULOSKELETAL: Extremities without clubbing, cyanosis, or edema. NEUROLOGICAL: Awake and alert. Cranial nerves II through XII intact. Strength 5/ 5 to elbow flexion/extension RUE to 90 degrees, cannot bring arm above level of shoulders. Strength grossly normal otherwise. Sensation intact throughout. Normal speech. Medications and IVs Current Medications Medications (Trade) Dose Ordered Sig/Ramakrishna Route Start Time Stop Time Status Last Admin (NS Flush) 2 ml UNSCH PRN IVF 02/28/16 16:00 03/02/16 08:36 (Norvasc) 10 mg DAILY PO 02/28/16 18:15 03/04/16 10:30 (Lipitor) 40 mg HS PO 02/28/16 21:00 03/03/16 20:06 (Plavix) 75 mg DAILY PO 02/28/16 18:15 03/04/16 10:29 (Lasix) 40 mg DAILY PO 02/29/16 09:00 Hold (Protonix) 40 mg DAILY@06 PO 02/28/16 18:15 03/04/16 05:22 (KCl) 20 meq DAILY PO 02/29/16 09:00 03/04/16 10:29 (Tylenol) 650 mg Q6H PRN PO 02/28/16 19:00 (Roxicodone) 10 mg Q4H PRN PO 02/28/16 19:00 03/04/16 10:30 (Roxicodone) 5 mg Q4H PRN PO 02/28/16 19:00 03/04/16 12:43 (Aspirin) 325 mg DAILY PO 02/29/16 09:00 03/04/16 10:30 (Flexeril) 10 mg TID PRN PO 02/29/16 09:00 03/01/16 17:28 (Catapres) 0.1 mg Q6H PRN PO 02/28/16 21:30 03/03/16 18:26 (Ativan) 1 mg Q4H PRN PO 02/28/16 21:45 03/02/16 21:17 (Ativan Inj) 1 mg Q4H PRN IV PUSH 02/28/16 21:45 (Ativan) 2 mg Q2H PRN PO 02/28/16 21:45 03/03/16 20:05 (Ativan Inj) 2 mg Q2H PRN IV PUSH 02/28/16 21:45 (Ativan Inj) 2 mg Q1H PRN IV PUSH 02/28/16 21:45 (Ativan Inj) 2 mg Q15M PRN IV PUSH 02/28/16 21:45 (Heparin Inj) 5,000 units Q8HR SQ 02/29/16 22:00 03/04/16 13:34 (Kasey-Colace) 2 tab BID PO 03/01/16 21:00 03/04/16 10:31 (Roxicodone) 5 mg Q4H PRN PO 03/02/16 09:30 03/03/16 20:07 (Neurontin) 300 mg BID PO 03/02/16 21:00 03/04/16 10:31 (Flomax) 0.4 mg HS PO 03/04/16 21:00 (Coreg) 12.5 mg BID PO 03/03/16 21:00 03/04/16 10:31 (Vitamin D3) 2,000 units DAILY PO 03/03/16 19:00 03/04/16 10:30 (Apresoline) 75 mg Q8HR PO 03/04/16 14:00 03/04/16 13:34 (Kody Terry MD R1) A/P Assessment and Plan 56-year-old male with history of significant coronary artery disease and uncontrolled hypertension presenting with: Discharge Planning Home pending renal biopsy (Kody Terry MD R1) Attending Attestation Patient seen and examined with the resident team. Case reviewed and discussed Agree with plan of care as discussed with me and documented in the resident note. (Cathleen Flores MD) Problem List: (1) Hypertension Status: Acute Plan: Persistent hypertension over hospitalization * Increase hydralazine to 75 mg q8hrs * Continue home amlodipine * Continue home Coreg * Clonidine 0.1 mg every 6 hours as needed for blood pressure greater than 180/ 100 (2) Weakness of right arm Status: Chronic Plan: Patient has history of "nerve impingement" of the right upper extremity causing numbness or tingling, however the weakness is a new symptom in the last 4 days. Per the patient he woke up with this symptom 4 days prior to admission and it has improved somewhat but is still persistent. No prior history of stroke. Likely related to arthritis and radiculopathy. 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, no other infarct Carotid US with bilateral bifurcation plaques but no narrowing MRI shoulder showing rotator cuff tendinopathy and arthritic changes, no tear -Continue PT/OT; plan for continued treatment as outpatient (3) [id number] kidney injury Status: Acute Plan: Creatinine approximately 2.50 on admission, baseline around 1.24 back in October Could be prerenal versus obstructive Renal U/S showing early chronic changes and distended bladder + enlarged prostate Cr 2.50 --> 2.22 --> 2.24 UA showing large proteinuria 24 h urine showing nephrotic range proteinuria (> 10,000) C3, C4 normal MISTY negative 03/02: Stark placed due to retention overnight 03/02 Nephrology consulted, appreciate their recommendations: -Good PO fluid intake, IVF discontinued 03/03/16 -Check complement, MISTY, ANCA, hepatitis panel -Renally dose medications -Plan for renal biopsy after 3 days of held Plavix and aspirin -Hold home Lasix given no clinical evidence of pulmonary edema or other fluid overload at this time -Tamulosin 0.4 mg HS -Follow-up BMP daily (4) Chest pain Status: Resolved Plan: Acute onset chest pain and shortness of breath in setting of elevated troponin and no ST segment changes on EKG Echo 03/01/16 showing EF 55-60% and moderate aortic root dilation, no wall motion abnormality Telemetry showing frequent PVCs, otherwise normal Troponin: 0.09 --> 0.10 --> 0.08 BNP 115 -Cardiology consulted, appreciate their recommendations * Cardiology feels etiology of chest pain is arthritis and radiculopathy (known problem to patient) * Continue beta isaac, statin * Control HTN * Holding ASA, Plavix due to anticipated renal Bx * Follow up as outpatient -Telemetry -Tylenol and oxycodone as needed for pain, additional oxycodone 5 mg PRN for breakthrough (5) ETOH abuse Status: Chronic Plan: Per patient, he has not had anything to drink in quite some time and this is since he was last in the service years ago) * CIWA protocol (6) Dysuria Status: Acute Plan: Mild, associated with some frequency and hesitancy for which PCP was working him up for prostate issues UA showing large protein, mild occult blood * Continue flomax * F/u as outpatient (7) DVT prophylaxis Status: Acute Plan: SQH 5000 units TID (8) Nutrition, metabolism, and development symptoms Status: Acute Plan: Fluids: Will discontinue; none at this time Electrolytes: Monitor and replace as needed Nutrition: Diet Heart Healthy (Kody Terry MD R1) Problem Qualifiers (1) Hypertension: Qualified Code: I10 - Essential hypertension (2) Chest pain: Qualified Code: R07.9 - Chest pain, unspecified type Kody Terry MD R1 Mar 04, 2016 14:59 Cathleen Flores MD Mar 05, 2016 10:43
--- NOTE | 2016-03-04 17:10 | HHI.NPPN ---
Subjective History of Present Illness The patient is a 56 yo AA male who presented to this facility on 02/27 with complaints of chest pain radiating down into arm. He also is complaining of LE edema that started approximately in August, but has recently been worsening. There is mention in his chart about hypertensive nephrosclerosis, but the patient is not aware of any history of renal decline. PMHx includes HTN that was only formally dx within the past 2 years (but question of longer diagnosis) , CAD s/p cardiac cath in September 2015, HLD, OA. Of note, he was complaining of dysuria and urinary hesitancy for the past several weeks. US showed prostatic enlargement. Denies any new medications recently. Also denies any NSAID use. Admitting SCr was 2.50 that improved to 2.24 at time of consult 11/22/15 SCr was 1.24, but otherwise baseline appears to be between 1.7-1.9 since Jan 2015 Prior SCr levels were in 0.8-0.9 range as per previous records. Interval History Pt feeling OK today. C/O shoulder pain---MRI this AM. (Kelley Lora) Objective Data Data 03/03/16 03/04/16 19:00 07:00 Intake Total 2000 ml 960 ml Output Total 1900 ml 1550 ml Balance 100 ml -590 ml Intake Oral 1200 ml 960 ml IV Total 800 ml Output Urine Total 1900 ml 1550 ml # Bowel Movements 1 0 Vital Signs Date Time Temp Pulse Resp B/P Pulse Ox O2 Delivery O2 Flow Rate FiO2 03/04/16 16:00 77 03/04/16 15:00 76 03/04/16 15:00 98.7 74 18 158/93 99 03/04/16 14:00 77 03/04/16 13:00 84 03/04/16 12:00 83 03/04/16 11:00 98.0 84 20 160/94 100 03/04/16 11:00 97 03/04/16 10:00 80 03/04/16 09:00 80 03/04/16 08:57 98 21 03/04/16 08:00 91 03/04/16 07:00 98.8 89 16 144/79 99 03/04/16 07:00 84 03/04/16 06:00 68 03/04/16 05:00 79 03/04/16 04:00 89 03/04/16 03:00 89 03/04/16 03:00 98.1 89 18 164/92 95 03/04/16 02:00 85 03/04/16 01:00 79 03/04/16 00:00 83 03/04/16 00:00 98.2 83 18 160/93 99 03/03/16 23:00 82 03/03/16 22:00 80 03/03/16 21:00 83 03/03/16 20:00 83 03/03/16 19:00 87 03/03/16 19:00 98.6 86 18 181/90 98 03/03/16 18:26 73 18 182/106 98 03/03/16 18:09 83 03/03/16 17:44 91 (Kelley Lora) -: 03/04/16 0512 03/04/16 0512 Imaging Last Impressions Shoulder MRI 03/03/16 0000 Signed Impressions: Service Date/Time: Thursday, March 03, 2016 14:29 - CONCLUSION: 1. Exam degraded by motion. No full-thickness rotator cuff tear identified. Mild rotator cuff tendinopathy. Trace fluid in the subacromial/subdeltoid bursa and around the subscapularis tendon. No joint effusion. Mild osteoarthritis of the right a.c. joint. Todd Clements MD Carotid Artery Ultrasound 03/01/16 0000 Signed Impressions: Service Date/Time: Tuesday, March 01, 2016 22:02 - CONCLUSION: Minimal bilateral bifurcation atherosclerotic plaque. No hemodynamically significant narrowing on either side. Troy Dean MD Upper Extremity Ultrasound 02/29/16 0000 Signed Impressions: Service Date/Time: Monday, February 29, 2016 15:06 - CONCLUSION: No DVT right upper extremity. Troy Dean MD Renal Ultrasound 02/29/16 0000 Signed Impressions: Service Date/Time: Monday, February 29, 2016 15:32 - CONCLUSION: 1. Both kidneys are mildly echogenic suggesting early chronic parenchymal disease. 2. No obstructive uropathy or other acute abnormality demonstrated. 3. Enlarged prostate. Troy Dean MD Head CT 02/29/16 0000 Signed Impressions: Service Date/Time: Monday, February 29, 2016 12:15 - CONCLUSION: Remote right thalamic infarct. Remigio Bill MD Chest X-Ray 02/28/16 1546 Signed Impressions: Service Date/Time: Sunday, February 28, 2016 15:47 - CONCLUSION: No evidence of acute cardiopulmonary disease. Troy Dean MD Medication Review Current Medications Medications (Trade) Dose Ordered Sig/Ramakrishna Route Start Time Stop Time Status Last Admin (NS Flush) 2 ml UNSCH PRN IVF 02/28/16 16:00 03/02/16 08:36 (Norvasc) 10 mg DAILY PO 02/28/16 18:15 03/04/16 10:30 (Lipitor) 40 mg HS PO 02/28/16 21:00 03/03/16 20:06 (Plavix) 75 mg DAILY PO 02/28/16 18:15 Hold 03/04/16 10:29 (Lasix) 40 mg DAILY PO 02/29/16 09:00 Hold (Protonix) 40 mg DAILY@06 PO 02/28/16 18:15 03/04/16 05:22 (KCl) 20 meq DAILY PO 02/29/16 09:00 03/04/16 10:29 (Tylenol) 650 mg Q6H PRN PO 02/28/16 19:00 (Roxicodone) 10 mg Q4H PRN PO 02/28/16 19:00 03/04/16 15:01 (Roxicodone) 5 mg Q4H PRN PO 02/28/16 19:00 03/04/16 12:43 (Flexeril) 10 mg TID PRN PO 02/29/16 09:00 03/01/16 17:28 (Catapres) 0.1 mg Q6H PRN PO 02/28/16 21:30 03/03/16 18:26 (Ativan) 1 mg Q4H PRN PO 02/28/16 21:45 03/02/16 21:17 (Ativan Inj) 1 mg Q4H PRN IV PUSH 02/28/16 21:45 (Ativan) 2 mg Q2H PRN PO 02/28/16 21:45 03/03/16 20:05 (Ativan Inj) 2 mg Q2H PRN IV PUSH 02/28/16 21:45 (Ativan Inj) 2 mg Q1H PRN IV PUSH 02/28/16 21:45 (Ativan Inj) 2 mg Q15M PRN IV PUSH 02/28/16 21:45 (Heparin Inj) 5,000 units Q8HR SQ 02/29/16 22:00 03/04/16 13:34 (Kasey-Colace) 2 tab BID PO 03/01/16 21:00 03/04/16 10:31 (Roxicodone) 5 mg Q4H PRN PO 03/02/16 09:30 03/03/16 20:07 (Neurontin) 300 mg BID PO 03/02/16 21:00 03/04/16 10:31 (Flomax) 0.4 mg HS PO 03/04/16 21:00 (Coreg) 12.5 mg BID PO 03/03/16 21:00 03/04/16 10:31 (Vitamin D3) 2,000 units DAILY PO 03/03/16 19:00 03/04/16 10:30 (Apresoline) 75 mg Q8HR PO 03/04/16 14:00 03/04/16 13:34 (Kelley Lora) Physical Exam General Appearance: Well Developed, Well Nourished, No Acute Distress, Comfortable ( Kelley Lora) Pulmonary Resp Exam: Clear Bilaterally, Breath Sounds Equal (Kelley Lora) Cardiology CV Exam: Regular, Normal Sinus Rhythm (Kelley Lora) Gastrointestinal/Abdomen GI Exam: Soft, Non-Tender (Kelley Lora) Musculoskeletal MS Exam: Joints Intact (Kelley Lora) Integumentary Skin Exam: Clear, Warm, Dry (Kelley Lora) Extremeties Extremities Exam: Trace Edema (Kelley Lora) Assessment/Plan Problem List: (1) Acute on chronic renal insufficiency Plan: Patient's renal function does appear to be improving however the patient has very heavy proteinuria over 10,000 mg with associated hypoalbuminemia. Severity of his proteinuria is more than would be expected from nephrosclerosis from hypertension per se. Differential diagnosis at this point in time would include focal segmental glomerulosclerosis primary versus secondary, membranous disease and less likely minimal change disease in view of the deterioration in the patient's GFR. I discussed with the patient importance of making a definitive diagnosis which may aid in preserving and or improving his renal function. I also discussed with him indications, alternatives and risks associated with kidney biopsy. He was informed that the risk is generally said to be approximately 1 in 1000 for development of a serious complications such as hemorrhage, need for blood transfusion, development of AV fistula, need for nephrectomy. There is also a small risk of associated with biopsy as discussed with him. He was advised that if he does have potentially treatable pathology that is not diagnosed a could increase his chances of progressing towards end-stage renal disease with requirement for renal replacement therapy. Talked to PCP earlier who got clearance from Cardiology about holding Plavix. ASA and Plavix held today. Will plan for kidney biopsy on 03/09/16 Serological studies still pending but so far there is no evidence of hepatitis C or B based on results to date. Medications should be adjusted for the patient's renal decline. Avoid nephrotoxic medications including iodinated contrast dyes and NSAIDs. Avoid gadolinium when eGFR <30. (2) Hypertension Plan: Hydralazine was increased by primary today. Monitor and adjust to get to goal of BP of <140/90 (3) Proteinuria Plan: Nephrotic range with associated hypoalbuminemia. (4) Chest pain Plan: Mgmt as per primary/cardiology (5) Prostate enlargement Plan: Monitor I&Os. Would recommend urological consult as outpatient. Continue on Flomax. (Kelley Lora) Problem List: (1) Acute on chronic renal insufficiency Plan: Patient's renal function does appear to be improving however the patient has very heavy proteinuria over 10,000 mg with associated hypoalbuminemia. Severity of his proteinuria is more than would be expected from nephrosclerosis from hypertension per se. Differential diagnosis at this point in time would include focal segmental glomerulosclerosis primary versus secondary, membranous disease and less likely minimal change disease in view of the deterioration in the patient's GFR. I discussed with the patient importance of making a definitive diagnosis which may aid in preserving and or improving his renal function. I also discussed with him indications, alternatives and risks associated with kidney biopsy. He was informed that the risk is generally said to be approximately 1 in 1000 for development of a serious complications such as hemorrhage, need for blood transfusion, development of AV fistula, need for nephrectomy. There is also a small risk of associated with biopsy as discussed with him. He was advised that if he does have potentially treatable pathology that is not diagnosed a could increase his chances of progressing towards end-stage renal disease with requirement for renal replacement therapy. Talked to PCP earlier who got clearance from Cardiology about holding Plavix. ASA and Plavix held today. Will plan for kidney biopsy on 03/09/16 Serological studies still pending but so far there is no evidence of hepatitis C or B based on results to date. Medications should be adjusted for the patient's renal decline. Avoid nephrotoxic medications including iodinated contrast dyes and NSAIDs. Avoid gadolinium when eGFR <30. (2) Hypertension Plan: Hydralazine was increased by primary today. Monitor and adjust to get to goal of BP of <140/90 (3) Proteinuria Plan: Nephrotic range with associated hypoalbuminemia. (4) Chest pain Plan: Mgmt as per primary/cardiology (5) Prostate enlargement Plan: Monitor I&Os. Would recommend urological consult as outpatient. Continue on Flomax. Plan The exam, history, and the medical decision-making described in the above note were completed with the assistance of the PA-C. I reviewed and agree with the findings presented. I attest that I had a [id number] encounter with the patient on the same day, and personally performed and documented my assessment and findings in the medical record. (Radha Marie MD) Problem Qualifiers (1) Hypertension: Qualified Code: I10 - Essential hypertension (2) Chest pain: Qualified Code: R07.81 - Pleurodynia Kelley Lora Mar 04, 2016 17:10 Radha Marie MD Mar 12, 2016 13:30
[2016-03-04] MEDS: ATORVASTATIN 40 MG TAB PO SCH (20:11)
[2016-03-04] MEDS: TAMSULOSIN HCL 0.4 MG CAP PO SCH (20:11)
[2016-03-05] VITALS (23 sets, daily range): BP systolic 128–163; BP diastolic 71–91; PULSE 80–108; RESP 15–20; TEMP 98.3–100; O2SAT 94–98
[2016-03-05] MEDS: LORazepam 1 MG TAB PO PRN (00:12)
[2016-03-05 03:53] LABS: KAPPA/LAMBDA FREE 1.06 (0.26-1.65)
[2016-03-05 06:02] LABS: MEAN CORPUSCULAR HEMOGLOBIN 33.9 PG (27.0-34.0); MEAN CORPUSCULAR HGB CONC 35.3 % (32.0-36.0); PLATELET COUNT 232 TH/MM3 (150-450); RED BLOOD COUNT 3.13 MIL/MM3 (4.50-5.90); RED CELL DISTRIBUTION WIDTH 14.3 % (11.6-17.2); REVIEW FLAG FINAL; WHITE BLOOD COUNT 12.9 TH/MM3 (4.0-11.0)
[2016-03-05] MEDS: PANTOPRAZOLE SOD 40 MG DELAYED RELEASE TAB PO SCH (06:03)
[2016-03-05] MEDS: HEPARIN SODIUM - SQ 10,000 UNITS/ML VIAL SQ SCH ×3 (06:03→21:13)
[2016-03-05] MEDS: hydrALAZINE HCL 25 MG TAB PO SCH ×3 (06:03→21:14)
[2016-03-05 06:09] LABS: BICARBONATE 24.5 MEQ/L (21.0-32.0); POTASSIUM 4.6 MEQ/L (3.5-5.1)
[2016-03-05] MEDS: CARVEDILOL 12.5 MG TAB PO SCH ×2 (08:10→21:13)
[2016-03-05] MEDS: DOCUSATE SODIUM 50 MG/SENNA 8.6 MG TAB PO SCH ×2 (08:11→21:00)
[2016-03-05] MEDS: GABAPENTIN 300 MG CAP PO SCH ×2 (08:11→21:13)
[2016-03-05] MEDS: CHOLECALCIFEROL (VIT D3) 1000 UNIT TAB PO SCH (08:11)
[2016-03-05] MEDS: POTASSIUM CHLORIDE 20 MEQ CONTROLLED RELEASE TAB PO SCH (08:11)
[2016-03-05] MEDS ORDERED: ASPIRIN EC 81 MG TABEC PO SCH (09:00)
--- NOTE | 2016-03-05 09:00 | HHI.FPPN ---
Subjective Remarks Mr. Stiles had intermittent mild tachycardia and T of 100F overnight. Patient reports increased pain in his feet/toes and one of his fingers. Patient states that this pain is new and at rest. Patient reports continued abdominal pain and mild shortness of breath. Patient with normal BM per EMR and 3775ml urine output overnight. Objective Vitals Vital Signs Date Time Temp Pulse Resp B/P Pulse Ox O2 Delivery O2 Flow Rate FiO2 03/05/16 07:15 15 03/05/16 07:15 15 03/05/16 07:00 88 03/05/16 07:00 100.0 100 15 136/74 97 03/05/16 06:00 90 03/05/16 05:00 106 03/05/16 04:05 99.1 89 16 163/91 98 03/05/16 04:00 106 03/05/16 03:00 106 03/05/16 02:00 108 03/05/16 01:46 98 03/05/16 01:00 107 03/05/16 00:00 82 03/04/16 23:45 99.3 84 16 172/95 99 03/04/16 23:00 78 03/04/16 22:00 79 03/04/16 21:00 78 03/04/16 20:00 83 03/04/16 19:43 81 16 152/96 96 03/04/16 19:00 84 03/04/16 18:00 73 03/04/16 17:00 75 03/04/16 16:00 77 03/04/16 15:00 76 03/04/16 15:00 98.7 74 18 158/93 99 03/04/16 14:00 77 03/04/16 13:00 84 03/04/16 12:00 83 03/04/16 11:00 98.0 84 20 160/94 100 03/04/16 11:00 97 03/04/16 10:00 80 03/04/16 09:00 80 03/04/16 08:57 98 21 I/O 03/04/16 03/04/16 03/04/16 03/05/16 03/05/16 03/05/16 07:00 15:00 23:00 07:00 15:00 23:00 Intake Total 960 ml 1180 ml 480 ml Output Total 1550 ml 2675 ml 1100 ml Balance -590 ml -1495 ml -620 ml Intake Oral 960 ml 1180 ml 480 ml Output Urine Total 1550 ml 2675 ml 1100 ml # Bowel Movements 0 1 2 Result Diagram: 03/05/16 0535 03/05/16 0535 Imaging Last Impressions Shoulder MRI 03/03/16 0000 Signed Impressions: Service Date/Time: Thursday, March 03, 2016 14:29 - CONCLUSION: 1. Exam degraded by motion. No full-thickness rotator cuff tear identified. Mild rotator cuff tendinopathy. Trace fluid in the subacromial/subdeltoid bursa and around the subscapularis tendon. No joint effusion. Mild osteoarthritis of the right a.c. joint. Todd Clements MD Carotid Artery Ultrasound 03/01/16 0000 Signed Impressions: Service Date/Time: Tuesday, March 01, 2016 22:02 - CONCLUSION: Minimal bilateral bifurcation atherosclerotic plaque. No hemodynamically significant narrowing on either side. Troy Dean MD Upper Extremity Ultrasound 02/29/16 0000 Signed Impressions: Service Date/Time: Monday, February 29, 2016 15:06 - CONCLUSION: No DVT right upper extremity. Troy Dean MD Renal Ultrasound 02/29/16 0000 Signed Impressions: Service Date/Time: Monday, February 29, 2016 15:32 - CONCLUSION: 1. Both kidneys are mildly echogenic suggesting early chronic parenchymal disease. 2. No obstructive uropathy or other acute abnormality demonstrated. 3. Enlarged prostate. Troy Dean MD Head CT 02/29/16 0000 Signed Impressions: Service Date/Time: Monday, February 29, 2016 12:15 - CONCLUSION: Remote right thalamic infarct. Remigio Bill MD Chest X-Ray 02/28/16 1546 Signed Impressions: Service Date/Time: Sunday, February 28, 2016 15:47 - CONCLUSION: No evidence of acute cardiopulmonary disease. Troy Dean MD Objective Remarks GENERAL: Well-developed well-nourished adult male laying in bed appearing in no acute distress CARDIOVASCULAR: Normal rate, regular rhythm. S1/S2 normal, 2/6 systolic ejection murmur at right upper sternal border and apex of heart. RESPIRATORY: CTAB. No crackles or wheezes. GASTROINTESTINAL: Abdomen soft, non-distended, moderately tender to palpation of epigastrium/right upper quadrant, no rebound, no guarding. No hepato- splenomegaly or palpable masses. MUSCULOSKELETAL: Extremities without obvious edema. Bilateral great toe pain, but no obvious LE edema. NEUROLOGICAL: Awake and alert. Cranial nerves intact. R shoulder not examined during this examination. Strength grossly normal. Sensation intact throughout. Normal speech. A/P Assessment and Plan 56-year-old male with history of significant coronary artery disease and uncontrolled hypertension presenting with: Discharge Planning Home pending renal biopsy Problem List: (1) [id number] kidney injury Status: Acute Plan: Creatinine approximately 2.50 on admission, baseline around 1.24 back in October Could be prerenal versus obstructive Renal U/S showing early chronic changes and distended bladder + enlarged prostate Cr 2.50 --> 1.95 (03/05) UA showing large proteinuria 24 h urine showing nephrotic range proteinuria (> 10,000) C3, C4 normal MISTY negative 03/02: Stark placed due to retention overnight 03/02 Nephrology consulted, appreciate their recommendations: -Good PO fluid intake, IVF discontinued 03/03/16 -Check complement, MISTY, ANCA, hepatitis panel -Renally dose medications -Plan for renal biopsy 03/09 after 3 days of held Plavix and aspirin -Hold home Lasix given no clinical evidence of pulmonary edema or other fluid overload at this time -Tamulosin 0.4 mg HS -Follow-up BMP daily -Will check Lipid profile due to protein wasting suspicious for Nephrotic syndrome (2) Hypertension Status: Acute Plan: Persistent hypertension over hospitalization * Continue hydralazine to 75 mg q8hrs * Continue home amlodipine * Continue Coreg 25mg BID * Clonidine 0.1 mg every 6 hours as needed for blood pressure greater than 180/ 100 (3) Weakness of right arm Status: Chronic Plan: Patient has history of "nerve impingement" of the right upper extremity causing numbness or tingling, however the weakness is a new symptom in the last 4 days. Per the patient he woke up with this symptom 4 days prior to admission and it has improved somewhat but is still persistent. No prior history of stroke. Likely related to arthritis and radiculopathy. 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, no other infarct Carotid US with bilateral bifurcation plaques but no narrowing MRI shoulder showing rotator cuff tendinopathy and arthritic changes, no tear -Continue PT/OT; plan for continued treatment as outpatient (4) Chest pain Status: Resolved Plan: Acute onset chest pain and shortness of breath in setting of elevated troponin and no ST segment changes on EKG Echo 03/01/16 showing EF 55-60% and moderate aortic root dilation, no wall motion abnormality Telemetry showing frequent PVCs, otherwise normal Troponin: 0.09 --> 0.10 --> 0.08 BNP 115 -Cardiology consulted, appreciate their recommendations * Cardiology feels etiology of chest pain is arthritis and radiculopathy (known problem to patient) * Continue beta isaac, statin * Control HTN * Holding ASA, Plavix due to anticipated renal Bx * Follow up as outpatient -Telemetry -Tylenol and oxycodone as needed for pain, additional oxycodone 5 mg PRN for breakthrough (5) ETOH abuse Status: Chronic Plan: Per patient, he has not had anything to drink in quite some time and this is since he was last in the service years ago) * CIWA protocol (6) Dysuria Status: Acute Plan: Mild, associated with some frequency and hesitancy for which PCP was working him up for prostate issues UA showing large protein, mild occult blood * Continue flomax * F/u as outpatient (7) DVT prophylaxis Status: Acute Plan: SQH 5000 units TID (8) Nutrition, metabolism, and development symptoms Status: Acute Plan: Fluids: None at this time Electrolytes: Monitor and replace as needed Nutrition: Diet Heart Healthy Problem Qualifiers (1) Hypertension: Qualified Code: I10 - Essential hypertension (2) Chest pain: Qualified Code: R07.9 - Chest pain, unspecified type Nirmal Cline MD R2 Mar 05, 2016 09:00
[2016-03-05 09:48] LABS: HDL CHOLESTEROL 40.3 MG/DL (40.0-60.0)
--- NOTE | 2016-03-05 12:51 | RADRPT ---
EXAM DATE/TIME: 03/05/2016 09:34 [facility] COMPARISON: No previous studies available for comparison. INDICATIONS : Right upper quadrant pain. MEDICAL HISTORY : Hypercholesterolemia. Hypertension. Anticoagulant therapy. Dyspnea. Chronic lumbar pain. SURGICAL HISTORY : Cardiac catheterization. ENCOUNTER: Subsequent ACUITY: 1 day PAIN SCORE: 9/10 LOCATION: Right upper quadrant MEASUREMENTS: LIVER: 20.4 cm length COMMON DUCT: 6 mm RIGHT KIDNEY: 14.8 x 5.3 x 7.4 cm FINDINGS: Liver enlarged to 20.4 cm with fatty infiltration. Echogenic right kidney most characteristic of medi jeremy renal disease. Trace free fluid. Gallbladder wall within normal limits. Common bile duct measures 6 mm the pancreatic duct mildly prominent in size. CONCLUSION: 1. Liver is slightly enlarged with some fatty infiltration. No gallstones or biliary ductal dilatatio n. Pancreatic duct mildly prominent. Small amount of free fluid. Todd Clements MD on March 05, 2016 at 12:49 Board Certified Radiologist. This report was verified electronically.
--- NOTE | 2016-03-05 16:33 | HHI.NPPN ---
Subjective History of Present Illness The patient is a 56 yo AA male who presented to this facility on 02/27 with complaints of chest pain radiating down into arm. He also is complaining of LE edema that started approximately in August, but has recently been worsening. There is mention in his chart about hypertensive nephrosclerosis, but the patient is not aware of any history of renal decline. PMHx includes HTN that was only formally dx within the past 2 years (but question of longer diagnosis) , CAD s/p cardiac cath in September 2015, HLD, OA. Of note, he was complaining of dysuria and urinary hesitancy for the past several weeks. US showed prostatic enlargement. Denies any new medications recently. Also denies any NSAID use. Admitting SCr was 2.50 that improved to 2.24 at time of consult 11/22/15 SCr was 1.24, but otherwise baseline appears to be between 1.7-1.9 since Jan 2015 Prior SCr levels were in 0.8-0.9 range as per previous records. Interval History Patient complaining of intermittent discomfort involving the great toe and one in the joints of the hand. Objective Data Data 03/04/16 03/05/16 19:00 07:00 Intake Total 1180 ml 480 ml Output Total 2675 ml 1100 ml Balance -1495 ml -620 ml Intake Oral 1180 ml 480 ml Output Urine Total 2675 ml 1100 ml # Bowel Movements 1 2 Vital Signs Date Time Temp Pulse Resp B/P Pulse Ox O2 Delivery O2 Flow Rate FiO2 03/05/16 15:00 98.5 83 18 140/71 98 03/05/16 15:00 85 03/05/16 14:00 80 03/05/16 13:00 80 03/05/16 12:00 80 03/05/16 11:00 99.0 84 20 134/75 94 03/05/16 11:00 83 03/05/16 10:35 94 21 03/05/16 10:00 89 03/05/16 09:00 92 03/05/16 08:00 90 03/05/16 07:15 15 03/05/16 07:15 15 03/05/16 07:00 88 03/05/16 07:00 100.0 100 15 136/74 97 03/05/16 06:00 90 03/05/16 05:00 106 03/05/16 04:05 99.1 89 16 163/91 98 03/05/16 04:00 106 03/05/16 03:00 106 03/05/16 02:00 108 03/05/16 01:46 98 03/05/16 01:00 107 03/05/16 00:00 82 03/04/16 23:45 99.3 84 16 172/95 99 03/04/16 23:00 78 03/04/16 22:00 79 03/04/16 21:00 78 03/04/16 20:00 83 03/04/16 19:43 81 16 152/96 96 03/04/16 19:00 84 03/04/16 18:00 73 03/04/16 17:00 75 -: 03/05/16 0535 03/05/16 0535 Physical Exam General Appearance: Well Developed, Well Nourished, No Acute Distress, Comfortable Pulmonary Resp Exam: Clear Bilaterally, Breath Sounds Equal Cardiology CV Exam: Regular, Normal Sinus Rhythm Gastrointestinal/Abdomen GI Exam: Soft, Non-Tender Musculoskeletal MS Exam: Joints Intact Integumentary Skin Exam: Clear, Warm, Dry Extremeties Extremities Exam: Trace Edema Assessment/Plan Discussed Condition With: Patient Problem List: (1) Acute on chronic renal insufficiency Plan: Differential diagnosis at this point in time would include focal segmental glomerulosclerosis primary versus secondary, membranous disease and less likely minimal change disease in view of the deterioration in the patient's GFR. The presence of a monoclonal protein on the serum immunofixation raises the possibility of myeloma or amyloid. Should be noted however that the urine was negative as far as monoclonal protein was concerned. Would like hematology opinion prior to proceeding with kidney biopsy. This was discussed with the patient who is agreeable. For completeness we'll also check HIV antibody. Talked to PCP earlier who got clearance from Cardiology about holding Plavix. ASA and Plavix held today. Will tentatively plan for kidney biopsy on 03/09/16 Medications should be adjusted for the patient's renal decline. Avoid nephrotoxic medications including iodinated contrast dyes and NSAIDs. Avoid gadolinium when eGFR <30. (2) Monoclonal gammopathy Plan: Recommend hematology consult as mentioned above. (3) Hypertension Plan: Continue current hypertensive regimen. (4) Proteinuria Plan: Nephrotic range with associated hypoalbuminemia. Etiology to be determined. (5) Prostate enlargement Plan: Monitor I&Os. Would recommend urological consult as outpatient. Continue on Flomax. Problem Qualifiers (1) Hypertension: Qualified Code: I10 - Essential hypertension Radha Marie MD Mar 05, 2016 16:33
[2016-03-05] MEDS: ATORVASTATIN 40 MG TAB PO SCH (21:13)
[2016-03-05] MEDS: TAMSULOSIN HCL 0.4 MG CAP PO SCH (21:14)
--- NOTE | 2016-03-05 21:46 | MB ---
cc: JANET WHITT M.D. DATE OF CONSULTATION 03/05/16 DATE OF [address] Alvin Marie CHIEF COMPLAINT Dr. Marie requests a consultation for Mr. Stiles regarding anemia, renal insufficiency associated with monoclonal gammopathy IgG kappa. HISTORY OF PRESENT ILLNESS Mr. Stiles is a 56-year-old man with history of coronary artery disease. He had a heart catheterization in September of 2015 showing 50-60% stenosis of diagonal artery. He has other medical problems including hypertension, hyperlipidemia, which are poorly controlled. He presented to the emergency room for non-ST elevated myocardial infarction on February 28, 2016. He was placed on IV heparin, evaluated by cardiology. Echocardiogram shows ejection fraction of 50-60%. Troponin I was less at its peak at 0.1 which was attributed to his renal insufficiency. During hospitalization, he was noted to have renal insufficiency with creatinine coming in at 2.5. He was also anemic with a hemoglobin of 11.8. Urinalysis shows positive blood and protein. Nephrology was consulted. Workup for his acute renal insufficiency revealed significant proteinuria of over 10 grams, associated hypoalbuminemia. He is noted to have an increasing creatinine since 2014. He has had progressive anemia since 2014. Serum protein electrophoresis was sent and showed monoclonal gammopathy measuring 0.31 gm/dl. Immunofixation shows an IgG kappa monoclonal gammopathy, quantitative immunoglobulin was normal. [place] and lambda light chain analysis was normal. However, free kappa and lambda light chain analysis was slightly elevated, but again the patient had renal insufficiency. His 24-hour urine protein electrophoresis shows no monoclonal protein. Differential diagnosis for his renal insufficiency included the focal segmental glomerulosclerosis, membranous disease, minimal change disease. In light of his monoclonal gammopathy and positive immunofixation Hematology/Oncology is consulted. Mr. Stiles denies any chain at present. Chest pain at present. He reports complex history and simple understanding of the medical workup so far. He denies any headaches, no vision changes. He is aware his hypertension is poorly controlled. His has no new change in appetite. He denies any swelling, no changes in bowel habits. He has some urinary complaints of dysuria and was found to have an enlarged prostate. Denies any hematuria. The rest of his review of systems is negative. PAST MEDICAL HISTORY 1. Coronary artery disease, 2. Hypertension, 3. Hyperlipidemia, 4. Anemia of chronic renal insufficiency, 5. Nephrotic range proteinuria 6. Hypoalbuminemia 7. Monoclonal gammopathy IgG kappa 8. Benign prostatic hypertrophy. PAST SURGICAL HISTORY 1. Colonoscopy 2. Cardiac catheterization. FAMILY HISTORY Significant for his brother in his 50s diagnosed with prostate cancer. Father at age 74, had prostate cancer. Mother of complications of diabetes in her 70s. SOCIAL HISTORY Quit smoking four months ago. He has a 10 pack-year smoking history. He drank heavily, denies any drinking at present. He is a former [employer]. He is living in a [facility] skilled nursing. ALLERGIES NO KNOWN DRUG ALLERGIES. MEDICATIONS current, 1. Coreg. 2. Flomax. 3. Hydralazine 4. Vitamin D3. 5. Neurontin. 6. Oxycodone 7. Kasey-Colace 8. Unfractionated Heparin. 9. Flexeril. 10. Lorazepam. 11. Clonidine 12. Lipitor 13. Norvasc. 14. Protonix. PHYSICAL EXAMINATION VITAL SIGNS: Temperature 98.6, heart rate 83, respiratory rate 19, blood pressure 128/77. GENERAL: Mr. Stiles is a well-developed, well-nourished looking man who looks older than stated age. HEENT: His pupils are round, reactive to light and accommodation. Oropharynx is clear. NECK: Supple. LUNGS: Clear. CARDIOVASCULAR: Normal rate and rhythm. ABDOMEN: Benign EXTREMITIES: Lower extremity with trace edema. LABORATORY DATA Hemoglobin of 10.6, platelet count is normal, white blood cell count of 12.9, BUN of 15, creatinine 1.95. Additional labs include B-natriuretic peptide of 93, vitamin D 4.8. ASSESSMENT/PLAN Mr. Stiles is a 56-year-old man with multiple medical problems. He has uncontrolled hypertension, hyperlipidemia and coronary artery disease. He has had progressive anemia and renal insufficiency since 2014. Workup during this admission showed the presence of an IgG kappa monoclonal gammopathy. He has no presence of light chain. Lengthy discussion Mr. Stiles the risk and benefit of bone marrow biopsy evaluation to rule out monoclonal gammopathy versus smoldering myeloma. I suspect that his renal insufficiency and anemia are unrelated to the monoclonal protein given the level of monoclonal gammopathy. His free and kappa lambda light chain are elevated in light of his renal insufficiency. We can check the bone marrow for [place] red stains to rule out amyloid. Bone marrow biopsy to evaluate the quantitation of plasma cell involvement. Mr. Stiles is not eager to return back to the skilled nursing. He is content to wait until Tuesday for his bone marrow biopsy evaluation. We discussed skeletal survey, x-ray of the long bones. I suspect the yield to be low. He is off antiplatelet therapy for an upcoming kidney biopsy pending on Tuesday. We will try to coordinate the bone marrow biopsy a day prior. We will see if preliminary could be reviewed by pathology, review of the bone marrow slides to evaluate for the plasma cell dyscrasia. Mr. Stiles's questions were answered to his satisfaction. MD ROBERTO CARLOS [place]/ /8:43 PM /9:20 PM
--- NOTE | 2016-03-05 22:38 | RADRPT ---
EXAM DATE/TIME: 03/05/2016 21:26 [facility] COMPARISON: No previous studies available for comparison. INDICATIONS : Evaluate for lytic lesions, pain throughout whole body. MEDICAL HISTORY : Hypertension. Renal failure SURGICAL HISTORY : None. ENCOUNTER: Initial ACUITY: 1 month PAIN SCORE: 9/10 LOCATION: Entire body FINDINGS: Bone survey was performed of the axial and appendicular skeleton. The upper extremities are unremarkable. The lower extremities are demonstrate no abnormality. The spinal axis and pelvis are unremarkable. The skull demonstrates normal mineralization and the paranasal sinuses are clear. The visualized heart, lungs and abdominal structures are unremarkable. Bony mineralization is normal . CONCLUSION: 1. No lytic bone lesions identified. There is a coin shaped radiopaque density overlying the right up per quadrant. It is in uncertain location without benefit of a lateral film. Todd Clements MD on March 05, 2016 at 22:33 Board Certified Radiologist. This report was verified electronically.
[2016-03-06] VITALS (8 sets, daily range): BP systolic 126–168; BP diastolic 69–87; PULSE 72–91; RESP 17–18; TEMP 98.1–98.9; O2SAT 94–100
[2016-03-06 04:03] LABS: MYELOPEROXIDASE LESS THAN 1.0 AI (<1.0); PROTEINASE-3 LESS THAN 1.0 AI (<1.0)
[2016-03-06] MEDS: hydrALAZINE HCL 25 MG TAB PO SCH ×3 (05:01→21:12)
[2016-03-06] MEDS: PANTOPRAZOLE SOD 40 MG DELAYED RELEASE TAB PO SCH (05:01)
[2016-03-06] MEDS: HEPARIN SODIUM - SQ 10,000 UNITS/ML VIAL SQ SCH ×3 (05:01→21:13)
[2016-03-06] MEDS: DOCUSATE SODIUM 50 MG/SENNA 8.6 MG TAB PO SCH ×2 (09:00→21:00)
--- NOTE | 2016-03-06 09:23 | PD.CARD.PN ---
Subjective Subjective Remarks ctsp d/t wct, patient notes palpitations, near syncope Objective Vital Signs / I&O Vital Signs Date Time Temp Pulse Resp B/P Pulse Ox O2 Delivery O2 Flow Rate FiO2 03/06/16 08:00 98.3 87 18 145/72 98 03/06/16 04:00 98.1 77 17 163/87 94 03/06/16 00:00 98.9 84 17 140/75 99 03/05/16 20:00 98.3 81 18 152/77 97 03/05/16 20:00 82 03/05/16 18:25 98.6 83 19 128/77 95 03/05/16 17:00 88 03/05/16 16:00 81 03/05/16 15:00 98.5 83 18 140/71 98 03/05/16 15:00 85 03/05/16 14:00 80 03/05/16 13:00 80 03/05/16 12:00 80 03/05/16 11:00 99.0 84 20 134/75 94 03/05/16 11:00 83 03/05/16 10:35 94 21 03/05/16 10:00 89 I/O 03/05/16 03/05/16 03/05/16 03/06/16 03/06/16 03/06/16 07:00 15:00 23:00 07:00 15:00 23:00 Intake Total 480 ml 1360 ml 240 ml Output Total 1100 ml 500 ml 1300 ml Balance -620 ml 860 ml -1060 ml Intake Oral 480 ml 1360 ml 240 ml Output Urine Total 1100 ml 500 ml 1300 ml # Voids 4 # Bowel Movements 2 1 Physical Exam GENERAL: SKIN: Warm and dry. HEAD: Normocephalic. EYES: No scleral icterus. No injection or drainage. NECK: Supple, trachea midline. No JVD or lymphadenopathy. CARDIOVASCULAR: Regular rate and rhythm without murmurs, gallops, or rubs. RESPIRATORY: Breath sounds equal bilaterally. No accessory muscle use. GASTROINTESTINAL: Abdomen soft, non-tender, nondistended. MUSCULOSKELETAL: No cyanosis, or edema. BACK: Nontender without obvious deformity. No CVA tenderness. Assessment and Plan Problem List: (1) CKD (chronic kidney disease) (2) Diastolic CHF (3) CAD (coronary artery disease) (4) [id number] kidney injury (5) Hypertension (6) Acute on chronic renal insufficiency (7) Proteinuria (8) Monoclonal gammopathy Assessment and Plan 1.) WCT - symptomatic with near syncope, rec ep consult, replete electrolytes prn 2.) CAD - continue lipitor, norvasc, plavix held d/t renal biopsy 3.) ? aortic dissection seen on 2d echo, will order chest mra if ok with Dr Marie d/t arf Problem Qualifiers (1) Hypertension: Qualified Code: I10 - Essential hypertension Keegan Rodriguez MD Mar 06, 2016 09:23
[2016-03-06] MEDS: GABAPENTIN 300 MG CAP PO SCH ×2 (09:40→21:12)
[2016-03-06] MEDS: CARVEDILOL 12.5 MG TAB PO SCH ×2 (09:40→21:12)
[2016-03-06] MEDS: CHOLECALCIFEROL (VIT D3) 1000 UNIT TAB PO SCH (09:40)
[2016-03-06] MEDS: MAGNESIUM SULFATE 1 GM PREMIX 100 ML IV SCH ×2 (09:41→11:34)
[2016-03-06] MEDS: POTASSIUM CHLORIDE 20 MEQ CONTROLLED RELEASE TAB PO SCH (09:41)
[2016-03-06 11:50] LABS: BASOPHIL # 0.1 TH/MM3 (0-0.2); BASOPHIL % 0.8 % (0.0-2.0); EOSINOPHIL # 0.3 TH/MM3 (0-0.4); EOSINOPHIL % 2.7 % (0.0-4.0); HEMATOCRIT 29.6 % (39.0-51.0); HEMO FLAGS DIFF FINAL; LYMPH % 18.5 % (9.0-44.0); LYMPHOCYTE # 1.8 TH/MM3 (1.0-4.8); MEAN CELL VOLUME 96.5 FL (80.0-100.0); MEAN CORPUSCULAR HEMOGLOBIN 32.6 PG (27.0-34.0); MEAN CORPUSCULAR HGB CONC 33.8 % (32.0-36.0); MONO % 6.7 % (0.0-8.0); NEUT % 71.3 % (16.0-70.0); PLATELET COUNT 244 TH/MM3 (150-450); RED BLOOD COUNT 3.06 MIL/MM3 (4.50-5.90); RED CELL DISTRIBUTION WIDTH 14.3 % (11.6-17.2); WHITE BLOOD COUNT 9.7 TH/MM3 (4.0-11.0)
[2016-03-06 12:10] LABS: BICARBONATE 26.3 MEQ/L (21.0-32.0); POTASSIUM 4.4 MEQ/L (3.5-5.1); URIC ACID 3.8 MG/DL (2.6-7.2)
--- NOTE | 2016-03-06 13:14 | PD.ONC.PN ---
Subjective Subjective Remarks Had an incident in the morning- noted to have arrythmia, pt felt something. NO syncopal episode. Claims he has a knot in RUQ from GB sludge. Objective Data Date Time Temp Pulse Resp B/P Pulse Ox O2 Delivery O2 Flow Rate FiO2 03/06/16 12:00 98.5 79 18 135/73 100 03/06/16 09:21 96 21 03/06/16 08:00 98.3 87 18 145/72 98 03/06/16 04:00 98.1 77 17 163/87 94 03/06/16 00:00 98.9 84 17 140/75 99 03/05/16 20:00 98.3 81 18 152/77 97 03/05/16 20:00 82 03/05/16 18:25 98.6 83 19 128/77 95 03/05/16 17:00 88 03/05/16 16:00 81 03/05/16 15:00 98.5 83 18 140/71 98 03/05/16 15:00 85 03/05/16 14:00 80 Result Diagram: 03/06/16 1140 03/06/16 1140 Laboratory Results Laboratory Tests Test 03/06/16 11:40 White Blood Count 9.7 TH/MM3 Red Blood Count 3.06 MIL/MM3 Hemoglobin 10.0 GM/DL Hematocrit 29.6 % Mean Corpuscular Volume 96.5 FL Mean Corpuscular Hemoglobin 32.6 PG Mean Corpuscular Hemoglobin 33.8 % Concent Red Cell Distribution Width 14.3 % Platelet Count 244 TH/MM3 Mean Platelet Volume 8.9 FL Neutrophils (%) (Auto) 71.3 % Lymphocytes (%) (Auto) 18.5 % Monocytes (%) (Auto) 6.7 % Eosinophils (%) (Auto) 2.7 % Basophils (%) (Auto) 0.8 % Neutrophils # (Auto) 7.0 TH/MM3 Lymphocytes # (Auto) 1.8 TH/MM3 Monocytes # (Auto) 0.7 TH/MM3 Eosinophils # (Auto) 0.3 TH/MM3 Basophils # (Auto) 0.1 TH/MM3 CBC Comment DIFF FINAL Differential Comment Sodium Level 140 MEQ/L Potassium Level 4.4 MEQ/L Chloride Level 109 MEQ/L Carbon Dioxide Level 26.3 MEQ/L Anion Gap 5 MEQ/L Blood Urea Nitrogen 16 MG/DL Creatinine 2.02 MG/DL Estimat Glomerular Filtration 42 ML/MIN Rate Random Glucose 144 MG/DL Uric Acid 3.8 MG/DL Calcium Level 7.9 MG/DL Administered Medications Medications (Trade) Dose Ordered Sig/Ramakrishna Route PRN Reason Start Time Stop Time Status Last Admin Dose Admin IV Flush (NS Flush) 2 ml UNSCH PRN IVF FLUSH AFTER USING IV ACCESS 02/28/16 16:00 03/02/16 08:36 Amlodipine Besylate (Norvasc) 10 mg DAILY PO 02/28/16 18:15 03/06/16 09:40 Atorvastatin Calcium (Lipitor) 40 mg HS PO 02/28/16 21:00 03/05/16 21:13 Clopidogrel Bisulfate (Plavix) 75 mg DAILY PO 02/28/16 18:15 Hold 03/04/16 10:29 Pantoprazole Sodium (Protonix) 40 mg DAILY@06 PO 02/28/16 18:15 03/06/16 05:01 Potassium Chloride (KCl) 20 meq DAILY PO 02/29/16 09:00 03/06/16 09:41 Oxycodone HCl (Roxicodone) 10 mg Q4H PRN PO PAIN SCALE 6 TO 10 02/28/16 19:00 03/06/16 09:41 Oxycodone HCl (Roxicodone) 5 mg Q4H PRN PO PAIN SCALE 3 TO 5 02/28/16 19:00 03/05/16 11:25 Cyclobenzaprine HCl (Flexeril) 10 mg TID PRN PO SPASM 02/29/16 09:00 03/01/16 17:28 Clonidine (Catapres) 0.1 mg Q6H PRN PO SBP>180, DBP>95 02/28/16 21:30 03/03/16 18:26 Lorazepam (Ativan) 1 mg Q4H PRN PO CIWA 8 - 10 02/28/16 21:45 03/05/16 00:12 Lorazepam (Ativan) 2 mg Q2H PRN PO CIWA 11-14 02/28/16 21:45 03/03/16 20:05 Heparin Sodium (Porcine) (Heparin Inj) 5,000 units Q8HR SQ 02/29/16 22:00 03/07/16 22:00 03/06/16 05:01 Senna/Docusate Sodium (Kasey-Colace) 2 tab BID PO 03/01/16 21:00 03/05/16 08:11 Oxycodone HCl (Roxicodone) 5 mg Q4H PRN PO BREAKTHROUGH PAIN 03/02/16 09:30 03/05/16 23:27 Gabapentin (Neurontin) 300 mg BID PO 03/02/16 21:00 03/06/16 09:40 Tamsulosin HCl (Flomax) 0.4 mg HS PO 03/04/16 21:00 03/05/16 21:14 Cholecalciferol (Vitamin D3) 2,000 units DAILY PO 03/03/16 19:00 03/06/16 09:40 Hydralazine HCl (Apresoline) 75 mg Q8HR PO 03/04/16 14:00 03/06/16 05:01 Carvedilol (Coreg) 25 mg BID PO 03/05/16 09:00 03/06/16 09:40 Objective Remarks GENERAL: Well-nourished, well-developed patient. SKIN: Warm and dry. HEAD: Normocephalic. EYES: No scleral icterus. No injection or drainage. NECK: Supple, trachea midline. No JVD or lymphadenopathy. LYMPHATIC: No adenopathy. CARDIOVASCULAR: Regular rate and rhythm without murmurs. RESPIRATORY: Breath sounds equal bilaterally. No accessory muscle use. GASTROINTESTINAL: Abdomen soft, non-tender, nondistended. EXTREMITIES: No cyanosis, or trace edema. MUSCULOSKELETAL: Adequate muscle tone. NEUROLOGICAL: No obvious focal deficit. Awake, alert, and oriented x3. PSYCHIATRIC: Appropriate mood and affect; insight and judgment normal. Assessment/Plan Problem List: (1) Monoclonal gammopathy Status: Acute Plan: New IgG [place]- no light chain in urine Associated with CRI and Anemia BM biopsy ordered to r/o plasma cell dyscrasia. Skeletal survey negative but coin like projection noted RUQ- unrelated to reason for the Xray to look for lytic lesions. Evaluation for cause of renal insufficiency ongoing. Assessment 56 y/o man with anemia, CRI associated with IgG kappa monoclonal gammopathy. Plan 1. BM biopsy planned. 2. Additional views to determine nature of coin lesion. Eli Christianson MD Mar 06, 2016 13:13
[2016-03-06 14:10] LABS: MAGNESIUM 2.5 MG/DL (1.5-2.5)
--- NOTE | 2016-03-06 15:26 | HHI.FPPN ---
Subjective Remarks Mr. Stiles was afebrile with mild HTN overnight. Patient to SBP 163 overnight. Patient reports 1800ml urine output overnight. Patient voiding and stooling normally per EMR. Patient reports continued mild shortness of breath and right upper quadrant abdominal pain. Patient reports that he had an episode of dizziness this morning. Per patient, this was associated with ventricular tachycardia x~5-[address] Rodriguez (Cardiology was reportedly notified. (Nirmal Cline MD R2) Objective Vitals Vital Signs Date Time Temp Pulse Resp B/P Pulse Ox O2 Delivery O2 Flow Rate FiO2 03/06/16 12:00 98.5 79 18 135/73 100 03/06/16 09:21 96 21 03/06/16 08:00 98.3 87 18 145/72 98 03/06/16 04:00 98.1 77 17 163/87 94 03/06/16 00:00 98.9 84 17 140/75 99 03/05/16 20:00 98.3 81 18 152/77 97 03/05/16 20:00 82 03/05/16 18:25 98.6 83 19 128/77 95 03/05/16 17:00 88 03/05/16 16:00 81 03/05/16 15:00 98.5 83 18 140/71 98 03/05/16 15:00 85 I/O 03/05/16 03/05/16 03/05/16 03/06/16 03/06/16 03/06/16 07:00 15:00 23:00 07:00 15:00 23:00 Intake Total 480 ml 1360 ml 240 ml Output Total 1100 ml 500 ml 1300 ml Balance -620 ml 860 ml -1060 ml Intake Oral 480 ml 1360 ml 240 ml Output Urine Total 1100 ml 500 ml 1300 ml # Voids 4 # Bowel Movements 2 1 (Nirmal Cline MD R2) Result Diagram: 03/06/16 1140 03/06/16 1140 Imaging Last Impressions Gall Bladder Ultrasound 03/05/16 0000 Signed Impressions: Service Date/Time: Saturday, March 05, 2016 09:34 - CONCLUSION: 1. Liver is slightly enlarged with some fatty infiltration. No gallstones or biliary ductal dilatation. Pancreatic duct mildly prominent. Small amount of free fluid. Todd Clements MD Bone Osseous Survey 03/05/16 0000 Signed Impressions: Service Date/Time: Saturday, March 05, 2016 21:26 - CONCLUSION: 1. No lytic bone lesions identified. There is a coin shaped radiopaque density overlying the right upper quadrant. It is in uncertain location without benefit of a lateral film. Todd Clements MD Shoulder MRI 03/03/16 0000 Signed Impressions: Service Date/Time: Thursday, March 03, 2016 14:29 - CONCLUSION: 1. Exam degraded by motion. No full-thickness rotator cuff tear identified. Mild rotator cuff tendinopathy. Trace fluid in the subacromial/subdeltoid bursa and around the subscapularis tendon. No joint effusion. Mild osteoarthritis of the right a.c. joint. Todd Clements MD Carotid Artery Ultrasound 03/01/16 0000 Signed Impressions: Service Date/Time: Tuesday, March 01, 2016 22:02 - CONCLUSION: Minimal bilateral bifurcation atherosclerotic plaque. No hemodynamically significant narrowing on either side. Troy Dean MD Upper Extremity Ultrasound 02/29/16 0000 Signed Impressions: Service Date/Time: Monday, February 29, 2016 15:06 - CONCLUSION: No DVT right upper extremity. Troy Dean MD Renal Ultrasound 02/29/16 0000 Signed Impressions: Service Date/Time: Monday, February 29, 2016 15:32 - CONCLUSION: 1. Both kidneys are mildly echogenic suggesting early chronic parenchymal disease. 2. No obstructive uropathy or other acute abnormality demonstrated. 3. Enlarged prostate. Troy Dean MD Head CT 02/29/16 0000 Signed Impressions: Service Date/Time: Monday, February 29, 2016 12:15 - CONCLUSION: Remote right thalamic infarct. Remigio Bill MD Chest X-Ray 02/28/16 1546 Signed Impressions: Service Date/Time: Sunday, February 28, 2016 15:47 - CONCLUSION: No evidence of acute cardiopulmonary disease. Troy Dean MD Objective Remarks GENERAL: Well-developed well-nourished adult male laying in bed appearing in no acute distress CARDIOVASCULAR: Normal rate, regular rhythm. 2/6 systolic ejection murmur at right upper sternal border and apex of heart. RESPIRATORY: CTAB. No crackles or wheezes. Normal rate GASTROINTESTINAL: Abdomen soft, non-distended, mild/moderate tenderness to palpation of epigastrium/right upper quadrant, no rebound, no guarding. MUSCULOSKELETAL: Extremities without obvious edema. R shoulder not examined during this examination. NEUROLOGICAL: Awake and alert. Cranial nerves grossly intact. Grossly normal sensory and motor function. (Nirmal Cline MD R2) A/P Assessment and Plan 56-year-old male with history of significant coronary artery disease and uncontrolled hypertension presenting with: Discharge Planning Home pending renal biopsy (Nirmal Cline MD R2) Attending Attestation Patient seen and examined with Dr. Cline. Case reviewed and discussed Agree with plan of care as discussed with me and documented in the resident note. (Cathleen Flores MD) Problem List: (1) [id number] kidney injury Status: Acute Plan: Creatinine approximately 2.50 on admission, baseline around 1.24 back in October Could be prerenal versus obstructive Renal U/S showing early chronic changes and distended bladder + enlarged prostate Cr 2.50 (admission) --> 1.95 (03/05) --> 2.02 (03/06) UA showing large proteinuria 24 h urine showing nephrotic range proteinuria (> 10,000) C3 normal, C4 41 MISTY negative Ig panel wnl Anti-Proteinase 3, myeloperoxidase negative Hepatitis panel, HIV negative Free [place] Light and Free Lambda light chains- elevated (107.01/100.84 respectively) Urine monoclonal protein negative Nephrology consulted, appreciate their recommendations: -Good PO fluid intake, IVF discontinued 03/03/16 -Renally dose medications -Plan for renal biopsy 03/09 after 3 days of held Plavix and aspirin -Hematology consulted to rule-out myeloma/amyloid due to monoclonal protein elevation -Hold home Lasix given no clinical evidence of pulmonary edema or other fluid overload at this time -Tamulosin 0.4 mg HS -Follow-up BMP daily (2) Cardiac disease Status: Acute Plan: Impression: On admission, patient with acute onset chest pain and shortness of breath in setting of elevated troponin and no ST segment changes on EKG Patient subsequently reported dizziness/lightheadedness 03/06 in associated with brief ventricular arrhythmia on telemetry Echo 03/01/16 showing EF 55-60% and moderate aortic root dilation, no wall motion abnormality. Aortic dissection cannot be ruled out on echo Telemetry showing frequent PVCs, otherwise normal Troponin: 0.09 --> 0.10 --> 0.08 BNP 115 -Cardiology consulted, appreciate their recommendations * Electrophysiology consultation per cardiology * Will obtain MR A chest to rule out dissection * Repeat electrolytes -Mg, Phosphorus wnl * Cardiology feels etiology of chest pain is arthritis and radiculopathy (known problem to patient) * Continue beta isaac, statin * Control HTN * Holding ASA, Plavix due to anticipated renal Bx -Telemetry -Tylenol and oxycodone as needed for pain, additional oxycodone 5 mg PRN for breakthrough (3) Monoclonal gammopathy present on serum protein electrophoresis Status: Acute Plan: Impression: Free [place] Light and Free Lambda light chains- elevated ( 107.01/100.84 respectively) No light chain in the urine -Continue renal diagnostic work-up per Nephrology -Hematology consulted -Bone marrow biopsy to rule-out dyscrasia -Skeletal survey -negative, but RUQ coin lesion present; further views recommended -Will check abdominal lateral view (4) Hypertension Status: Acute Plan: Persistent hypertension over hospitalization * Continue hydralazine to 75 mg q8hrs * Continue home amlodipine * Continue Coreg 25mg BID * Clonidine 0.1 mg every 6 hours as needed for blood pressure greater than 160/ 90 (5) Weakness of right arm Status: Chronic Plan: Patient has history of "nerve impingement" of the right upper extremity causing numbness or tingling, however the weakness is a new symptom in the last 4 days. Per the patient he woke up with this symptom 4 days prior to admission and it has improved somewhat but is still persistent. No prior history of stroke. Likely related to arthritis and radiculopathy. 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, no other infarct Carotid US with bilateral bifurcation plaques but no narrowing MRI shoulder showing rotator cuff tendinopathy and arthritic changes, no tear -Continue PT/OT; plan for continued treatment as outpatient (6) ETOH abuse Status: Chronic Plan: Per patient, he has not had anything to drink in quite some time and this is since he was last in the service years ago) * CIWA protocol (7) Dysuria Status: Acute Plan: Mild, associated with some frequency and hesitancy for which PCP was working him up for prostate issues UA showing large protein, mild occult blood * Continue flomax * F/u as outpatient (8) DVT prophylaxis Status: Acute Plan: SQH 5000 units TID -Will hold 03/07 prior to bone marrow biopsy (9) Nutrition, metabolism, and development symptoms Status: Acute Plan: Fluids: None at this time Electrolytes: Monitor and replace as needed Nutrition: Diet Heart Healthy (Nirmal Cline MD R2) Remarks Patient complained of frontal headache today. Since MRA chest negative for dissection, will add Fioricet as PRN for ESPINOZA (Nirmal Cline MD R2) Problem Qualifiers (1) Hypertension: Qualified Code: I10 - Essential hypertension Nirmal Cline MD R2 Mar 06, 2016 15:26 Cathleen Flores MD Mar 07, 2016 13:59
[2016-03-06] MEDS ORDERED: GADOBENATE DIM PF 529 MG/ML 20ML VIAL (for RAD MRI) IV ONE (15:40)
--- NOTE | 2016-03-06 15:58 | RADRPT ---
EXAM DATE/TIME: 03/06/2016 15:05 [facility] COMPARISON: No previous studies available for comparison. INDICATIONS : Possible foreign body. Possible coin. MEDICAL HISTORY : Renal Failure. SURGICAL HISTORY : None. ENCOUNTER: Subsequent ACUITY: 2 days PAIN SCORE: 0/10 LOCATION: Bilateral abdomen. FINDINGS: A single erect view of the abdomen demonstrates the lower lungs to be clear. No evidence of free int raperitoneal gas. The visualized bowel loops are unremarkable. CONCLUSION: No acute disease. No evidence of radiopaque foreign body Gerardo Marinelli MD on March 06, 2016 at 15:56 Board Certified Radiologist. This report was verified electronically.
--- NOTE | 2016-03-06 16:08 | RADRPT ---
EXAM DATE/TIME: 03/06/2016 15:10 [facility] COMPARISON: ABDOMEN UPRIGHT ONLY, March 06, 2016, 15:05. [EFORM] FINDINGS: Examination of the abdomen demonstrates a normal bowel gas pattern. No free air is identified. No o rganomegaly is evident. Osseous structures are intact. CONCLUSION: Benign abdomen. No evidence free air.. Gerardo Marinelli MD on March 06, 2016 at 16:05 Board Certified Radiologist. This report was verified electronically.
--- NOTE | 2016-03-06 16:11 | RADRPT ---
EXAM DATE/TIME: 03/06/2016 15:31 [place] COMPARISON: CHEST SINGLE AP, February 28, 2016, 15:47. INDICATIONS : Aortic dissection. Chest pain. Unstable angina. CONTRAST: 20 cc Multihance (gadobenate) IV MEDICAL HISTORY : Hypercholesterolemia. Hypertension. Renal failure, acute. SURGICAL HISTORY : None. ENCOUNTER: Subsequent ACUITY: 2 weeks PAIN SCORE: 0/10 LOCATION: chest TECHNIQUE: Bolus infused MR angiography was performed yielding 3D reconstructed images of the chest. FINDINGS: THORACIC AORTA: Normal. No evidence of dilatation or dissection. Origin of great vessels off the aorta are normal. OTHER STRUCTURES: Pulmonary outflow tract is normal in caliber. The heart is normal in size. CONCLUSION: Normal examination. Gerardo Marinelli MD on March 06, 2016 at 16:07 Board Certified Radiologist. This report was verified electronically.
[2016-03-06] MEDS ORDERED: ACETAMINOPHEN 325 MG TAB PO PRN (16:45)
[2016-03-06] MEDS: ACETAMINOPHEN 500 MG CPLT PO PRN (18:36)
[2016-03-06] MEDS: ATORVASTATIN 40 MG TAB PO SCH (21:12)
[2016-03-06] MEDS: TAMSULOSIN HCL 0.4 MG CAP PO SCH (21:12)
[2016-03-06] MEDS: ACETAMIN 325 MG/BUTALBITAL 50 MG/CAFFEINE 40 MG TAB PO PRN (21:20)
[2016-03-07] VITALS (7 sets, daily range): BP systolic 135–149; BP diastolic 65–76; PULSE 69–83; RESP 17–18; TEMP 97.4–98.4; O2SAT 96–100
[2016-03-07] MEDS: HEPARIN SODIUM - SQ 10,000 UNITS/ML VIAL SQ SCH ×3 (06:10→22:16)
[2016-03-07] MEDS: hydrALAZINE HCL 25 MG TAB PO SCH ×3 (06:10→22:16)
[2016-03-07] MEDS: PANTOPRAZOLE SOD 40 MG DELAYED RELEASE TAB PO SCH (06:10)
[2016-03-07 08:44] LABS: AUTOMATED NEUTROPHIL # 5.6 TH/MM3 (1.8-7.7); BASOPHIL # 0.1 TH/MM3 (0-0.2); BASOPHIL % 0.6 % (0.0-2.0); EOSINOPHIL # 0.4 TH/MM3 (0-0.4); EOSINOPHIL % 4.2 % (0.0-4.0); HEMATOCRIT 32.1 % (39.0-51.0); HEMO FLAGS DIFF FINAL; LYMPH % 26.8 % (9.0-44.0); LYMPHOCYTE # 2.5 TH/MM3 (1.0-4.8); MEAN CORPUSCULAR HEMOGLOBIN 32.6 PG (27.0-34.0); MEAN CORPUSCULAR HGB CONC 33.6 % (32.0-36.0); NEUT % 60.4 % (16.0-70.0); PLATELET COUNT 289 TH/MM3 (150-450); RED BLOOD COUNT 3.31 MIL/MM3 (4.50-5.90); RED CELL DISTRIBUTION WIDTH 14.3 % (11.6-17.2); WHITE BLOOD COUNT 9.3 TH/MM3 (4.0-11.0)
[2016-03-07] MEDS: DOCUSATE SODIUM 50 MG/SENNA 8.6 MG TAB PO SCH ×2 (09:00→20:22)
[2016-03-07 09:17] LABS: BICARBONATE 25.5 MEQ/L (21.0-32.0); MAGNESIUM 2.3 MG/DL (1.5-2.5); POTASSIUM 4.4 MEQ/L (3.5-5.1)
--- NOTE | 2016-03-07 09:40 | HHI.FPPN ---
Subjective Remarks No adverse events overnight. Patient has remained afebrile. BPs 120s-160s / 60s- 80s over past 24 hours. 3125mL of documented UOP. Patient continues to report a few brief episodes of dizziness throughout yesterday. Denies shortness of breath or chest pain this AM. Patient did not have any other complaints. Objective Vitals Vital Signs Date Time Temp Pulse Resp B/P Pulse Ox O2 Delivery O2 Flow Rate FiO2 03/07/16 04:00 98.0 70 17 149/75 98 03/07/16 00:00 98.0 69 18 137/65 97 03/06/16 20:00 75 03/06/16 20:00 98.9 74 17 168/86 94 03/06/16 16:00 98.2 72 18 126/69 97 03/06/16 12:00 98.5 79 18 135/73 100 03/06/16 09:21 96 21 I/O 03/06/16 03/06/16 03/06/16 03/07/16 03/07/16 03/07/16 07:00 15:00 23:00 07:00 15:00 23:00 Intake Total 240 ml 480 ml 360 ml 480 ml Output Total 1300 ml 825 ml 900 ml 1400 ml Balance -1060 ml -345 ml -540 ml -920 ml Intake Oral 240 ml 480 ml 360 ml 480 ml Output Urine Total 1300 ml 825 ml 900 ml 1400 ml # Bowel Movements 0 0 Result Diagram: 03/07/16 0655 03/06/16 1140 Objective Remarks GENERAL: Well-developed well-nourished adult male lying in bed appearing in no acute distress CARDIOVASCULAR: Normal rate, regular rhythm. 2/6 systolic ejection murmur at right upper sternal border and apex of heart. RESPIRATORY: CTAB. No crackles or wheezes. Normal respiratory rate GASTROINTESTINAL: Abdomen soft, non-distended, nontender to palpation, no guarding. MUSCULOSKELETAL: Extremities without edema. NEUROLOGICAL: Awake and alert. Cranial nerves grossly intact. Grossly normal sensory and motor function. A/P Assessment and Plan 56-year-old male with history of significant coronary artery disease and uncontrolled hypertension presenting with: Discharge Planning Home following renal and bone marrow biopsy Problem List: (1) Pjtva-ex-xponsjt kidney injury Status: Acute Plan: Creatinine 2.50 on admission, baseline around 1.24 back in 10/2015 Renal U/S showing early chronic changes and distended bladder + enlarged prostate Cr remaining ~2.0 24 h urine showing nephrotic range proteinuria (> 10,000) C3 normal, C4 41 MISTY negative Ig panel wnl Anti-Proteinase 3, myeloperoxidase negative Hepatitis panel, HIV negative Free [place] and Free Lambda light chains- elevated (107.01/100.84 respectively) Urine monoclonal protein negative Nephrology consulted, appreciate their recommendations: -Good PO fluid intake, IVF discontinued 03/03/16 -Renally dose medications -Plan for renal biopsy 03/09 after 3 days of held Plavix and aspirin -Hematology consulted to rule-out myeloma/amyloid due to monoclonal protein elevation -Hold home Lasix given no clinical evidence of pulmonary edema or other fluid overload at this time -Tamsulosin 0.4 mg po HS -BMP daily -Continue KCl 20mEq po daily (2) Cardiac disease Status: Acute Plan: Impression: On admission, patient with acute onset chest pain and shortness of breath in setting of elevated troponin and no ST segment changes on EKG Patient subsequently reported dizziness/lightheadedness 03/06 in associated with brief ventricular arrhythmia on telemetry Echo 03/01/16 showing EF 55-60% and moderate aortic root dilation, no wall motion abnormality. Telemetry continues to show frequent PVCs, otherwise normal Troponin: 0.09 --> 0.10 --> 0.08 BNP 93 -Cardiology consulted, appreciate their recommendations * Electrophysiology consultation per cardiology * MRA chest normal; no aortic dissection * Repeat electrolytes -Mg, Phosphorus wnl * Cardiology feels etiology of chest pain is arthritis and radiculopathy (known problem to patient) * Continue beta isaac, statin * Control HTN * Holding ASA, Plavix due to anticipated renal Bx 03/09 -Discontinued telemetry -Tylenol and oxycodone as needed for pain, additional oxycodone 5 mg PRN for breakthrough (3) Monoclonal gammopathy present on serum protein electrophoresis Status: Acute Plan: Impression: Free [place] and Free Lambda light chains- elevated ( 107.01/100.84 respectively) No light chain in the urine -Continue renal diagnostic work-up per Nephrology -Hematology consulted -Bone marrow biopsy to rule-out dyscrasia -Skeletal survey -negative, but RUQ coin lesion present -lateral abdomen x-ray normal (4) Hypertension Status: Acute Plan: Persistent hypertension over hospitalization * Will continue current regimen, continue to monitor vitals q4h * Continue hydralazine 75 mg po q8h * Continue home amlodipine 10mg po daily * Continue Coreg 25 mg po BID * Clonidine 0.1 mg q6h prn blood pressure greater than 180/100 (5) Weakness of right arm Status: Chronic Plan: Patient has history of "nerve impingement" of the right upper extremity causing numbness or tingling, however the weakness is a new symptom in the last 4 days. Per the patient he woke up with this symptom 4 days prior to admission and it has improved somewhat but is still persistent. No prior history of stroke. Likely related to arthritis and radiculopathy. 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, no other infarct Carotid US with bilateral bifurcation plaques but no narrowing MRI shoulder showing rotator cuff tendinopathy and arthritic changes, no tear -Continue PT/OT; plan for continued treatment as outpatient (6) ETOH abuse Status: Chronic Plan: Per patient, he has not had anything to drink in quite some time and this is since he was last in the service years ago * CIWA protocol (7) Dysuria Status: Acute Plan: Mild, associated with some frequency and hesitancy for which PCP was working him up for prostate issues UA showing large protein, mild occult blood * Continue flomax * F/u as outpatient (8) DVT prophylaxis Status: Acute Plan: SQH 5000 units TID -Will hold prior to bone marrow biopsy (9) Nutrition, metabolism, and development symptoms Status: Acute Plan: Fluids: None at this time Electrolytes: Monitor and replace as needed Nutrition: Diet Heart Healthy sdw Dr. Harper and Dr. Harrison Flores Problem Qualifiers (1) Hypertension: Qualified Code: I10 - Essential hypertension Danny Singletary MD R1 Mar 07, 2016 09:40
--- NOTE | 2016-03-07 10:43 | HHI.PR ---
Addendum to Inpatient Note Addendum Reason: Additional Documentation Additional Information 56 year old with PMH of uncontrolled HTN and early renal disease admitted due to chest pain and troponin elevation with acute increase in creatinine to 2.2. Cardiology consulted, thought NSTEMI unlikely based on results of testing and Echocardiogram showing normal EF and no regional wall motion abnormality. Nephrology consulted for acutely worsened kidney function, initiated work-up which showed nephrotic-range proteinuria and increased kappa & lambda light chains in a 1:1 ratio. Renal biopsy pending. Heme/onc consulted for light chains in urine, skeletal survey negative for obvious lytic lesions. Bone marrow biopsy pending for prior to renal biopsy. Plan for discharge pending biopsy results. Kody Terry MD R1 Mar 07, 2016 10:43 am
[2016-03-07] MEDS: CHOLECALCIFEROL (VIT D3) 1000 UNIT TAB PO SCH (10:56)
[2016-03-07] MEDS: GABAPENTIN 300 MG CAP PO SCH ×2 (10:56→20:21)
[2016-03-07] MEDS: CARVEDILOL 12.5 MG TAB PO SCH ×2 (10:56→20:21)
[2016-03-07] MEDS: POTASSIUM CHLORIDE 20 MEQ CONTROLLED RELEASE TAB PO SCH (10:57)
[2016-03-07] MEDS: ACETAMINOPHEN 500 MG CPLT PO PRN ×2 (10:57→18:20)
[2016-03-07] MEDS: ATORVASTATIN 40 MG TAB PO SCH (20:21)
[2016-03-07] MEDS: TAMSULOSIN HCL 0.4 MG CAP PO SCH (20:21)
[2016-03-07] MEDS: SODIUM CHLORIDE 0.9% FLUSH 5 ML FLUSH IVF PRN (20:22)
[2016-03-07] MEDS: ACETAMIN 325 MG/BUTALBITAL 50 MG/CAFFEINE 40 MG TAB PO PRN (20:24)
--- NOTE | 2016-03-07 20:36 | PD.CARD.PN ---
Subjective Subjective Remarks alert in nad Objective Vital Signs / I&O Vital Signs Date Time Temp Pulse Resp B/P Pulse Ox O2 Delivery O2 Flow Rate FiO2 03/07/16 16:00 98.2 76 18 135/68 100 03/07/16 12:00 98.4 83 18 138/67 98 03/07/16 08:00 77 03/07/16 08:00 97.4 82 18 145/67 96 03/07/16 04:00 98.0 70 17 149/75 98 03/07/16 00:00 98.0 69 18 137/65 97 I/O 03/06/16 03/06/16 03/06/16 03/07/16 03/07/16 03/07/16 07:00 15:00 23:00 07:00 15:00 23:00 Intake Total 240 ml 480 ml 360 ml 480 ml 860 ml Output Total 1300 ml 825 ml 900 ml 1400 ml 550 ml Balance -1060 ml -345 ml -540 ml -920 ml 310 ml Intake Oral 240 ml 480 ml 360 ml 480 ml 860 ml Output Urine Total 1300 ml 825 ml 900 ml 1400 ml 550 ml # Bowel Movements 0 0 1 Physical Exam GENERAL: SKIN: Warm and dry. HEAD: Normocephalic. EYES: No scleral icterus. No injection or drainage. NECK: Supple, trachea midline. No JVD or lymphadenopathy. CARDIOVASCULAR: Regular rate and rhythm without murmurs, gallops, or rubs. RESPIRATORY: Breath sounds equal bilaterally. No accessory muscle use. GASTROINTESTINAL: Abdomen soft, non-tender, nondistended. MUSCULOSKELETAL: No cyanosis, or edema. BACK: Nontender without obvious deformity. No CVA tenderness. Laboratory Laboratory Tests Test 03/07/16 06:55 White Blood Count 9.3 TH/MM3 Red Blood Count 3.31 MIL/MM3 Hemoglobin 10.8 GM/DL Hematocrit 32.1 % Mean Corpuscular Volume 97.0 FL Mean Corpuscular Hemoglobin 32.6 PG Mean Corpuscular Hemoglobin 33.6 % Concent Red Cell Distribution Width 14.3 % Platelet Count 289 TH/MM3 Mean Platelet Volume 9.5 FL Neutrophils (%) (Auto) 60.4 % Lymphocytes (%) (Auto) 26.8 % Monocytes (%) (Auto) 8.0 % Eosinophils (%) (Auto) 4.2 % Basophils (%) (Auto) 0.6 % Neutrophils # (Auto) 5.6 TH/MM3 Lymphocytes # (Auto) 2.5 TH/MM3 Monocytes # (Auto) 0.7 TH/MM3 Eosinophils # (Auto) 0.4 TH/MM3 Basophils # (Auto) 0.1 TH/MM3 CBC Comment DIFF FINAL Differential Comment Sodium Level 140 MEQ/L Potassium Level 4.4 MEQ/L Chloride Level 106 MEQ/L Carbon Dioxide Level 25.5 MEQ/L Anion Gap 9 MEQ/L Blood Urea Nitrogen 15 MG/DL Creatinine 1.96 MG/DL Estimat Glomerular Filtration 43 ML/MIN Rate Random Glucose 90 MG/DL Calcium Level 8.1 MG/DL Magnesium Level 2.3 MG/DL Assessment and Plan Problem List: (1) CKD (chronic kidney disease) (2) Diastolic CHF (3) CAD (coronary artery disease) (4) Nnldv-bj-espjbhp kidney injury (5) Hypertension (6) Acute on chronic renal insufficiency (7) Proteinuria (8) Monoclonal gammopathy Assessment and Plan 1.) WCT - symptomatic with near syncope, rec ep consult, replete electrolytes prn, may need cath revascularization of diagonal, d/w patient, high risk for arf , will f/u rec Dr Mcdowell and bonejamierow biopsy results 2.) CAD - increase lipitor to 80 qhs, norvasc, plavix held d/t renal biopsy 3.) ? aortic dissection seen on 2d echo, no dissection on chest mra Problem Qualifiers (1) Hypertension: Qualified Code: I10 - Essential hypertension Keegan Rodriguez MD Mar 07, 2016 20:35
[2016-03-08] VITALS (9 sets, daily range): BP systolic 120–170; BP diastolic 56–94; PULSE 75–90; RESP 18–20; TEMP 98.3–98.8; O2SAT 94–98
[2016-03-08 06:09] LABS: AUTOMATED NEUTROPHIL # 5.9 TH/MM3 (1.8-7.7); BASOPHIL # 0.1 TH/MM3 (0-0.2); BASOPHIL % 0.5 % (0.0-2.0); EOSINOPHIL # 0.4 TH/MM3 (0-0.4); EOSINOPHIL % 3.8 % (0.0-4.0); HEMATOCRIT 30.7 % (39.0-51.0); HEMO FLAGS DIFF FINAL; LYMPH % 29.1 % (9.0-44.0); MEAN CELL VOLUME 97.9 FL (80.0-100.0); MEAN CORPUSCULAR HEMOGLOBIN 33.3 PG (27.0-34.0); MONO % 8.9 % (0.0-8.0); NEUT % 57.7 % (16.0-70.0); PLATELET COUNT 293 TH/MM3 (150-450); RED BLOOD COUNT 3.13 MIL/MM3 (4.50-5.90); RED CELL DISTRIBUTION WIDTH 14.2 % (11.6-17.2); WHITE BLOOD COUNT 10.2 TH/MM3 (4.0-11.0)
[2016-03-08] MEDS: hydrALAZINE HCL 25 MG TAB PO SCH ×3 (06:23→21:41)
[2016-03-08] MEDS: PANTOPRAZOLE SOD 40 MG DELAYED RELEASE TAB PO SCH (06:23)
[2016-03-08 06:25] LABS: BICARBONATE 23.4 MEQ/L (21.0-32.0); MAGNESIUM 2.3 MG/DL (1.5-2.5); POTASSIUM 5.2 MEQ/L (3.5-5.1)
[2016-03-08] MEDS: SODIUM CHLORIDE 0.9% FLUSH 5 ML FLUSH IVF PRN (08:41)
[2016-03-08] MEDS: POTASSIUM CHLORIDE 20 MEQ CONTROLLED RELEASE TAB PO SCH (08:41)
[2016-03-08] MEDS: GABAPENTIN 300 MG CAP PO SCH ×2 (08:41→21:39)
[2016-03-08] MEDS: DOCUSATE SODIUM 50 MG/SENNA 8.6 MG TAB PO SCH ×2 (08:41→21:39)
[2016-03-08] MEDS: CHOLECALCIFEROL (VIT D3) 1000 UNIT TAB PO SCH (08:41)
[2016-03-08] MEDS: CARVEDILOL 12.5 MG TAB PO SCH ×2 (08:41→21:41)
--- NOTE | 2016-03-08 10:06 | HHI.NPPN ---
Subjective History of Present Illness The patient is a 56 yo AA male who presented to this facility on 02/27 with complaints of chest pain radiating down into arm. He also is complaining of LE edema that started approximately in August, but has recently been worsening. There is mention in his chart about hypertensive nephrosclerosis, but the patient is not aware of any history of renal decline. PMHx includes HTN that was only formally dx within the past 2 years (but question of longer diagnosis) , CAD s/p cardiac cath in September 2015, HLD, OA. Of note, he was complaining of dysuria and urinary hesitancy for the past several weeks. US showed prostatic enlargement. Denies any new medications recently. Also denies any NSAID use. Admitting SCr was 2.50 that improved to 2.24 at time of consult 11/22/15 SCr was 1.24, but otherwise baseline appears to be between 1.7-1.9 since Jan 2015 Prior SCr levels were in 0.8-0.9 range as per previous records. Interval History Feeling OK. Notes some heart palpitations in the AM Bone marrow bx scheduled for today. (Kelley Lora) Review of Systems Cardiovascular Cardiac: Palpitations (Kelley Lora) Objective Data Data 03/07/16 03/08/16 19:00 07:00 Intake Total 860 ml Output Total 550 ml 450 ml Balance 310 ml -450 ml Intake Oral 860 ml Output Urine Total 550 ml 450 ml # Voids 2 # Bowel Movements 1 0 Vital Signs Date Time Temp Pulse Resp B/P Pulse Ox O2 Delivery O2 Flow Rate FiO2 03/08/16 08:03 98.7 83 18 132/63 97 03/08/16 05:52 98.8 80 20 138/75 96 03/08/16 00:10 98.3 75 20 151/76 98 03/07/16 20:35 98.2 73 18 145/76 97 03/07/16 20:00 77 03/07/16 16:00 98.2 76 18 135/68 100 03/07/16 12:00 98.4 83 18 138/67 98 (Kelley Lora) -: 03/08/16 0458 03/08/16 0458 Medication Review Current Medications Medications (Trade) Dose Ordered Sig/Ramakrishna Route Start Time Stop Time Status Last Admin (NS Flush) 2 ml UNSCH PRN IVF 02/28/16 16:00 03/08/16 08:41 (Norvasc) 10 mg DAILY PO 02/28/16 18:15 03/08/16 08:41 (Plavix) 75 mg DAILY PO 02/28/16 18:15 Hold 03/04/16 10:29 (Lasix) 40 mg DAILY PO 02/29/16 09:00 Hold (Protonix) 40 mg DAILY@06 PO 02/28/16 18:15 03/08/16 06:23 (KCl) 20 meq DAILY PO 02/29/16 09:00 Hold 03/08/16 08:41 (Tylenol) 650 mg Q6H PRN PO 02/28/16 19:00 (Roxicodone) 10 mg Q4H PRN PO 02/28/16 19:00 03/08/16 06:24 (Roxicodone) 5 mg Q4H PRN PO 02/28/16 19:00 03/05/16 11:25 (Flexeril) 10 mg TID PRN PO 02/29/16 09:00 03/01/16 17:28 (Catapres) 0.1 mg Q6H PRN PO 02/28/16 21:30 03/03/16 18:26 (Ativan) 1 mg Q4H PRN PO 02/28/16 21:45 03/05/16 00:12 (Ativan Inj) 1 mg Q4H PRN IV PUSH 02/28/16 21:45 (Ativan) 2 mg Q2H PRN PO 02/28/16 21:45 03/03/16 20:05 (Ativan Inj) 2 mg Q2H PRN IV PUSH 02/28/16 21:45 (Ativan Inj) 2 mg Q1H PRN IV PUSH 02/28/16 21:45 (Ativan Inj) 2 mg Q15M PRN IV PUSH 02/28/16 21:45 (Kasey-Colace) 2 tab BID PO 03/01/16 21:00 03/05/16 08:11 (Roxicodone) 5 mg Q4H PRN PO 03/02/16 09:30 03/07/16 01:41 (Neurontin) 300 mg BID PO 03/02/16 21:00 03/08/16 08:41 (Flomax) 0.4 mg HS PO 03/04/16 21:00 03/07/16 20:21 (Vitamin D3) 2,000 units DAILY PO 03/03/16 19:00 03/08/16 08:41 (Apresoline) 75 mg Q8HR PO 03/04/16 14:00 03/08/16 06:23 (Coreg) 25 mg BID PO 03/05/16 09:00 03/08/16 08:41 (Fioricet 325-50-40) 1 tab Q8H PRN PO 03/06/16 17:45 03/07/16 20:24 (Tylenol) 500 mg Q6H PRN PO 03/06/16 17:45 03/07/16 18:20 (Lipitor) 80 mg HS PO 03/08/16 21:00 (Kelley Lora) Physical Exam General Appearance: Well Developed, Well Nourished, No Acute Distress, Comfortable ( Kelley Lora) Pulmonary Resp Exam: Clear Bilaterally, Breath Sounds Equal (Kelley Lora) Cardiology CV Exam: Regular, Normal Sinus Rhythm (Kelley Lora) Gastrointestinal/Abdomen GI Exam: Soft, Non-Tender (Kelley Lora) Musculoskeletal MS Exam: Joints Intact (Kelley Lora) Integumentary Skin Exam: Clear, Warm, Dry (Kelley Lora) Extremeties Extremities Exam: No Edema (Kelley Lora) Neurologic Neuro Exam: Alert, Awake, Oriented (Kelley Lora) Psychiatric Psych Exam: Appropriate Responses (Kelley Lora) Assessment/Plan Discussed Condition With: Patient Problem List: (1) Acute on chronic renal insufficiency Plan: Differential diagnosis at this point in time would include focal segmental glomerulosclerosis primary versus secondary, membranous disease and less likely minimal change disease in view of the deterioration in the patient' s GFR. The presence of a monoclonal protein on the serum immunofixation raises the possibility of myeloma or amyloid. Should be noted however that the urine was negative as far as monoclonal protein was concerned. Bone marrow bx pending for today Kidney bx scheduled for 03/09/16 Medications should be adjusted for the patient's renal decline. Avoid nephrotoxic medications including iodinated contrast dyes and NSAIDs. Avoid gadolinium when eGFR <30. (2) Monoclonal gammopathy Plan: Appreciate heme input (3) Hypertension Plan: Continue current hypertensive regimen. (4) Proteinuria Plan: Nephrotic range with associated hypoalbuminemia. Etiology to be determined. (5) Prostate enlargement Plan: Monitor I&Os. Would recommend urological consult as outpatient. Continue on Flomax. (Kelley Lora) Plan The exam, history, and the medical decision-making described in the above note were completed with the assistance of the PA-C. I reviewed and agree with the findings presented. I attest that I had a [id number] encounter with the patient on the same day, and personally performed and documented my assessment and findings in the medical record. (Radha Marie MD) Problem Qualifiers (1) Hypertension: Qualified Code: I10 - Essential hypertension Kelley Lora Mar 08, 2016 10:06 Radha Marie MD Mar 12, 2016 13:29
--- NOTE | 2016-03-08 10:48 | PD.ONC.PN ---
Subjective Subjective Remarks Afebrile overnight. Patient resting comfortably. He felt somewhat nauseated and without appetite this AM, but states he ate his breakfast anyway as he knew he was going to be NPO today. No pain in the extremities. He states he still has a little bit of RUQ pain. Objective Data Date Time Temp Pulse Resp B/P Pulse Ox O2 Delivery O2 Flow Rate FiO2 03/08/16 08:03 98.7 83 18 132/63 97 03/08/16 05:52 98.8 80 20 138/75 96 03/08/16 00:10 98.3 75 20 151/76 98 03/07/16 20:35 98.2 73 18 145/76 97 03/07/16 20:00 77 03/07/16 16:00 98.2 76 18 135/68 100 03/07/16 12:00 98.4 83 18 138/67 98 Result Diagram: 03/08/16 0458 03/08/16 0458 Laboratory Results Laboratory Tests Test 03/08/16 04:58 White Blood Count 10.2 TH/MM3 Red Blood Count 3.13 MIL/MM3 Hemoglobin 10.4 GM/DL Hematocrit 30.7 % Mean Corpuscular Volume 97.9 FL Mean Corpuscular Hemoglobin 33.3 PG Mean Corpuscular Hemoglobin 34.0 % Concent Red Cell Distribution Width 14.2 % Platelet Count 293 TH/MM3 Mean Platelet Volume 9.3 FL Neutrophils (%) (Auto) 57.7 % Lymphocytes (%) (Auto) 29.1 % Monocytes (%) (Auto) 8.9 % Eosinophils (%) (Auto) 3.8 % Basophils (%) (Auto) 0.5 % Neutrophils # (Auto) 5.9 TH/MM3 Lymphocytes # (Auto) 3.0 TH/MM3 Monocytes # (Auto) 0.9 TH/MM3 Eosinophils # (Auto) 0.4 TH/MM3 Basophils # (Auto) 0.1 TH/MM3 CBC Comment DIFF FINAL Differential Comment Sodium Level 140 MEQ/L Potassium Level 5.2 MEQ/L Chloride Level 110 MEQ/L Carbon Dioxide Level 23.4 MEQ/L Anion Gap 7 MEQ/L Blood Urea Nitrogen 18 MG/DL Creatinine 2.10 MG/DL Estimat Glomerular Filtration 40 ML/MIN Rate Random Glucose 89 MG/DL Calcium Level 8.2 MG/DL Magnesium Level 2.3 MG/DL Administered Medications Medications (Trade) Dose Ordered Sig/Ramakrishna Route PRN Reason Start Time Stop Time Status Last Admin Dose Admin IV Flush (NS Flush) 2 ml UNSCH PRN IVF FLUSH AFTER USING IV ACCESS 02/28/16 16:00 03/08/16 08:41 Amlodipine Besylate (Norvasc) 10 mg DAILY PO 02/28/16 18:15 03/08/16 08:41 Clopidogrel Bisulfate (Plavix) 75 mg DAILY PO 02/28/16 18:15 Hold 03/04/16 10:29 Pantoprazole Sodium (Protonix) 40 mg DAILY@06 PO 02/28/16 18:15 03/08/16 06:23 Potassium Chloride (KCl) 20 meq DAILY PO 02/29/16 09:00 Hold 03/08/16 08:41 Oxycodone HCl (Roxicodone) 10 mg Q4H PRN PO PAIN SCALE 6 TO 10 02/28/16 19:00 03/08/16 06:24 Oxycodone HCl (Roxicodone) 5 mg Q4H PRN PO PAIN SCALE 3 TO 5 02/28/16 19:00 03/05/16 11:25 Cyclobenzaprine HCl (Flexeril) 10 mg TID PRN PO SPASM 02/29/16 09:00 03/01/16 17:28 Clonidine (Catapres) 0.1 mg Q6H PRN PO SBP>180, DBP>100 02/28/16 21:30 03/03/16 18:26 Lorazepam (Ativan) 1 mg Q4H PRN PO CIWA 8 - 10 02/28/16 21:45 03/05/16 00:12 Lorazepam (Ativan) 2 mg Q2H PRN PO CIWA 11-14 02/28/16 21:45 03/03/16 20:05 Senna/Docusate Sodium (Kasey-Colace) 2 tab BID PO 03/01/16 21:00 03/05/16 08:11 Oxycodone HCl (Roxicodone) 5 mg Q4H PRN PO BREAKTHROUGH PAIN 03/02/16 09:30 03/07/16 01:41 Gabapentin (Neurontin) 300 mg BID PO 03/02/16 21:00 03/08/16 08:41 Tamsulosin HCl (Flomax) 0.4 mg HS PO 03/04/16 21:00 03/07/16 20:21 Cholecalciferol (Vitamin D3) 2,000 units DAILY PO 03/03/16 19:00 03/08/16 08:41 Hydralazine HCl (Apresoline) 75 mg Q8HR PO 03/04/16 14:00 03/08/16 06:23 Carvedilol (Coreg) 25 mg BID PO 03/05/16 09:00 03/08/16 08:41 Acetaminophen/ Butalbital/ Caffeine (Fioricet 325-50-40) 1 tab Q8H PRN PO SEVERE HEADACHE 03/06/16 17:45 03/07/16 20:24 Acetaminophen (Tylenol) 500 mg Q6H PRN PO HEADACHE 03/06/16 17:45 03/07/16 18:20 Objective Remarks GENERAL: Middle aged male, sitting up in bed in nad. SKIN: Warm and dry. HEAD: Normocephalic. EYES: No injection or drainage. NECK: Supple, trachea midline. CARDIOVASCULAR: Regular rate and rhythm RESPIRATORY: Breath sounds equal bilaterally. No accessory muscle use. GASTROINTESTINAL: Abdomen soft, non-tender, nondistended. EXTREMITIES: No cyanosis. NEUROLOGICAL: No obvious focal deficit. Awake, alert, and oriented x3. Assessment/Plan Problem List: (1) Monoclonal gammopathy Status: Acute Plan: 03/08/16: discussed plans for bone marrow biopsy today. patient questions answered. added [place] red stain to pathology. New IgG [place]- no light chain in urine Associated with CRI and Anemia BM biopsy ordered to r/o plasma cell dyscrasia. Skeletal survey negative but coin like projection noted RUQ- unrelated to reason for the Xray to look for lytic lesions. Evaluation for cause of renal insufficiency ongoing. Assessment 56 y/o man with anemia, CRI associated with IgG kappa monoclonal gammopathy. Plan 1. bone marrow biopsy today--will ask pathologist to perform [place] red stain to r/o amyloidosis. 2. monitor CBC, renal function. Magnolia Ambrose Mar 08, 2016 10:48
--- NOTE | 2016-03-08 12:24 | HHI.FPPN ---
Subjective Remarks No adverse events overnight. Patient has remained afebrile. BPs 120s-150s / 50s- 70s over past 24 hours. 1000mL of UOP. Patient reports brief episodes of dizziness when sitting up. Denies dizziness when lying still or when sitting for periods of time. Denies palpitations. Denies shortness of breath or chest pain. Patient denied dysuria or hematuria, states he does have some dribbling of urine. (Danny Singletary MD R1) Objective Vitals Vital Signs Date Time Temp Pulse Resp B/P Pulse Ox O2 Delivery O2 Flow Rate FiO2 03/08/16 12:06 98.7 76 18 120/56 94 03/08/16 08:03 98.7 83 18 132/63 97 03/08/16 08:00 90 03/08/16 05:52 98.8 80 20 138/75 96 03/08/16 00:10 98.3 75 20 151/76 98 03/07/16 20:35 98.2 73 18 145/76 97 03/07/16 20:00 77 03/07/16 16:00 98.2 76 18 135/68 100 I/O 03/07/16 03/07/16 03/07/16 03/08/16 03/08/16 03/08/16 07:00 15:00 23:00 07:00 15:00 23:00 Intake Total 480 ml 860 ml Output Total 1400 ml 550 ml 450 ml Balance -920 ml 310 ml -450 ml Intake Oral 480 ml 860 ml Output Urine Total 1400 ml 550 ml 450 ml # Voids 2 # Bowel Movements 0 1 0 0 (Danny Singletary MD R1) Result Diagram: 03/08/16 0458 03/08/16 0458 Objective Remarks GENERAL: Well-developed well-nourished male lying in bed appearing in no acute distress CARDIOVASCULAR: Normal rate, regular rhythm. 2/6 systolic ejection murmur at right upper sternal border and apex of heart. RESPIRATORY: CTAB. No crackles or wheezes. Normal respiratory rate GASTROINTESTINAL: Abdomen soft, non-distended, nontender to palpation, no guarding. MUSCULOSKELETAL: Extremities without edema. NEUROLOGICAL: Awake and alert. Cranial nerves grossly intact. Grossly normal sensory and motor function. (Danny Singletary MD R1) A/P Assessment and Plan 56-year-old male with history of significant coronary artery disease and uncontrolled hypertension presenting with: Discharge Planning Home following renal and bone marrow biopsy (Danny Singletary MD R1) Attending Attestation Patient seen and examined with the resident team Case reviewed and discussed Agree with plan of care as discussed with me and documented in the resident note. (Cathleen Flores MD) Problem List: (1) Btpld-[id number] kidney injury Status: Acute Plan: Creatinine 2.50 on admission, baseline around 1.24 back in 10/2015 Renal U/S showing early chronic changes and distended bladder + enlarged prostate Cr remaining ~2.0 24 h urine showing nephrotic range proteinuria (> 10,000) C3 normal, C4 41 MISTY negative Ig panel wnl Anti-Proteinase 3, myeloperoxidase negative Hepatitis panel, HIV negative Free [place] and Free Lambda light chains- elevated (107.01/100.84 respectively) Urine monoclonal protein negative Nephrology consulted, appreciate their recommendations: -Good PO fluid intake, IVF discontinued 03/03/16 -Renally dose medications -Plan for renal biopsy 03/09 after 3 days of held Plavix and aspirin -Hematology consulted to rule-out myeloma/amyloid due to monoclonal protein elevation -Hold home Lasix given no clinical evidence of pulmonary edema or other fluid overload at this time -Tamsulosin 0.4 mg po HS -Hold home KCl 20mEq po daily as K was 5.2 this AM -BMP daily, monitor electrolytes (2) Cardiac disease Status: Acute Plan: Impression: On admission, patient with acute onset chest pain and shortness of breath in setting of elevated troponin and no ST segment changes on EKG Patient subsequently reported dizziness/lightheadedness 03/06 in associated with brief ventricular arrhythmia on telemetry Echo 03/01/16 showing EF 55-60% and moderate aortic root dilation, no wall motion abnormality. Telemetry continues to show frequent PVCs, otherwise normal Troponin: 0.09 --> 0.10 --> 0.08 BNP 93 -Cardiology consulted, appreciate their recommendations * Electrophysiology consultation per cardiology * MRA chest normal; no aortic dissection * Repeat electrolytes -Mg, Phosphorus wnl * Cardiology feels etiology of chest pain is arthritis and radiculopathy (known problem to patient) * Continue beta isaac, statin * Control HTN * Holding ASA, Plavix due to anticipated renal Bx 1/10 -Tylenol and oxycodone as needed for pain, additional oxycodone 5 mg PRN for breakthrough (3) Monoclonal gammopathy present on serum protein electrophoresis Status: Acute Plan: Impression: Free [place] and Free Lambda light chains- elevated ( 107.01/100.84 respectively) No light chain in the urine -Continue renal diagnostic work-up per Nephrology -Hematology consulted -Bone marrow biopsy to rule-out dyscrasia -Skeletal survey -negative, but RUQ coin lesion present -lateral abdomen x-ray normal (4) Hypertension Status: Chronic Plan: Persistent hypertension over hospitalization * Will continue current regimen, continue to monitor vitals q4h * Continue hydralazine 75 mg po q8h * Continue home amlodipine 10mg po daily * Continue Coreg 25 mg po BID * Clonidine 0.1 mg q6h prn blood pressure greater than 180/100 (5) Weakness of right arm Status: Chronic Plan: Patient has history of "nerve impingement" of the right upper extremity causing numbness or tingling, however the weakness is a new symptom in the last 4 days. Per the patient he woke up with this symptom 4 days prior to admission and it has improved somewhat but is still persistent. No prior history of stroke. Likely related to arthritis and radiculopathy. 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, no other infarct Carotid US with bilateral bifurcation plaques but no narrowing MRI shoulder showing rotator cuff tendinopathy and arthritic changes, no tear -Continue PT/OT; plan for continued treatment as outpatient (6) ETOH abuse Status: Chronic Plan: Per patient, he has not had anything to drink in quite some time and this is since he was last in the service years ago * CIWA protocol (7) Dysuria Status: Acute Plan: Mild, associated with some frequency and hesitancy for which PCP was working him up for prostate issues UA showing large protein, mild occult blood * Continue flomax * F/u as outpatient (8) DVT prophylaxis Status: Acute Plan: SQH 5000 units TID -Held prior to bone marrow biopsy -Hold prior to renal biopsy (9) Nutrition, metabolism, and development symptoms Status: Acute Plan: Fluids: None at this time Electrolytes: Monitor and replace as needed Nutrition: Diet Heart Healthy (Danny Singletary MD R1) Problem Qualifiers (1) Hypertension: Qualified Code: I10 - Essential hypertension Danny Singletary MD R1 Mar 08, 2016 12:24 Cathleen Flores MD Mar 10, 2016 13:20
--- NOTE | 2016-03-08 13:33 | PD.CARD.PN ---
Subjective Subjective Remarks alert in nad, notes palpitations this am Objective Vital Signs / I&O Vital Signs Date Time Temp Pulse Resp B/P Pulse Ox O2 Delivery O2 Flow Rate FiO2 03/08/16 12:06 98.7 76 18 120/56 94 03/08/16 08:03 98.7 83 18 132/63 97 03/08/16 08:00 90 03/08/16 05:52 98.8 80 20 138/75 96 03/08/16 00:10 98.3 75 20 151/76 98 03/07/16 20:35 98.2 73 18 145/76 97 03/07/16 20:00 77 03/07/16 16:00 98.2 76 18 135/68 100 I/O 03/07/16 03/07/16 03/07/16 03/08/16 03/08/16 03/08/16 07:00 15:00 23:00 07:00 15:00 23:00 Intake Total 480 ml 860 ml Output Total 1400 ml 550 ml 450 ml Balance -920 ml 310 ml -450 ml Intake Oral 480 ml 860 ml Output Urine Total 1400 ml 550 ml 450 ml # Voids 2 # Bowel Movements 0 1 0 0 Physical Exam GENERAL: SKIN: Warm and dry. HEAD: Normocephalic. EYES: No scleral icterus. No injection or drainage. NECK: Supple, trachea midline. No JVD or lymphadenopathy. CARDIOVASCULAR: Regular rate and rhythm without murmurs, gallops, or rubs. RESPIRATORY: Breath sounds equal bilaterally. No accessory muscle use. GASTROINTESTINAL: Abdomen soft, non-tender, nondistended. MUSCULOSKELETAL: No cyanosis, or edema. BACK: Nontender without obvious deformity. No CVA tenderness. Laboratory Laboratory Tests Test 03/08/16 04:58 White Blood Count 10.2 TH/MM3 Red Blood Count 3.13 MIL/MM3 Hemoglobin 10.4 GM/DL Hematocrit 30.7 % Mean Corpuscular Volume 97.9 FL Mean Corpuscular Hemoglobin 33.3 PG Mean Corpuscular Hemoglobin 34.0 % Concent Red Cell Distribution Width 14.2 % Platelet Count 293 TH/MM3 Mean Platelet Volume 9.3 FL Neutrophils (%) (Auto) 57.7 % Lymphocytes (%) (Auto) 29.1 % Monocytes (%) (Auto) 8.9 % Eosinophils (%) (Auto) 3.8 % Basophils (%) (Auto) 0.5 % Neutrophils # (Auto) 5.9 TH/MM3 Lymphocytes # (Auto) 3.0 TH/MM3 Monocytes # (Auto) 0.9 TH/MM3 Eosinophils # (Auto) 0.4 TH/MM3 Basophils # (Auto) 0.1 TH/MM3 CBC Comment DIFF FINAL Differential Comment Sodium Level 140 MEQ/L Potassium Level 5.2 MEQ/L Chloride Level 110 MEQ/L Carbon Dioxide Level 23.4 MEQ/L Anion Gap 7 MEQ/L Blood Urea Nitrogen 18 MG/DL Creatinine 2.10 MG/DL Estimat Glomerular Filtration 40 ML/MIN Rate Random Glucose 89 MG/DL Calcium Level 8.2 MG/DL Magnesium Level 2.3 MG/DL Assessment and Plan Problem List: (1) CKD (chronic kidney disease) (2) Diastolic CHF (3) CAD (coronary artery disease) (4) [id number] kidney injury (5) Hypertension (6) Acute on chronic renal insufficiency (7) Proteinuria (8) Monoclonal gammopathy Assessment and Plan 1.) WCT - symptomatic with near syncope, rec ep consult, replete electrolytes prn, may need cath revascularization of diagonal, d/w patient, high risk for arf , will f/u rec Dr Mcdowell and bonejamierow biopsy results 2.) CAD - increase lipitor to 80 qhs, norvasc, plavix held d/t renal biopsy 3.) ? aortic dissection seen on 2d echo, no dissection on chest mra Problem Qualifiers (1) Hypertension: Qualified Code: I10 - Essential hypertension Keegan Rodriguez MD Mar 08, 2016 13:33
[2016-03-08] MEDS ORDERED: LIDOCAINE 1%/EPINEPHrine 1:100,000 SOLN 20 ML VIAL ONE (14:06)
[2016-03-08] MEDS ORDERED: MIDAZOLAM HCL 5 MG/5 ML VIAL ONE (14:35)
[2016-03-08] MEDS ORDERED: fentaNYL CITRATE 250 MCG/5 ML AMP ONE (14:35)
[2016-03-08 15:52] LABS: BONE MARROW PROCESSING COMPLETE; IRON STAIN DONE; JENNER GIEMSA STAIN DONE
[2016-03-08] MEDS ORDERED: oxyCODONE/ACETAMINOPHEN 5 MG/325 MG TAB PO PRN (16:00)
[2016-03-08] MEDS: TAMSULOSIN HCL 0.4 MG CAP PO SCH (21:39)
[2016-03-08] MEDS: ATORVASTATIN 80 MG TAB PO SCH (21:39)
[2016-03-09] VITALS (13 sets, daily range): BP systolic 105–163; BP diastolic 54–89; PULSE 65–86; RESP 16–20; TEMP 97.7–99; O2SAT 93–100
[2016-03-09] MEDS: hydrALAZINE HCL 25 MG TAB PO SCH ×3 (06:13→22:37)
[2016-03-09] MEDS: PANTOPRAZOLE SOD 40 MG DELAYED RELEASE TAB PO SCH (06:13)
--- NOTE | 2016-03-09 07:17 | MB ---
cc: REUBEN AU MD, HANSCY M.D. CROSSMAN, ARTHUR W. M.D. DATE OF CONSULTATION: 03/08/2016 REASON FOR CONSULTATION Wide complex tachyarrhythmia and near-syncope. HISTORY OF PRESENT ILLNESS Mr. Stiles is a 56-year-old -[place] gentleman with a history of high blood pressure, hyperlipidemia, arthritis, renal insufficiency, who was admitted due to chest pain on February 28, 2015. Troponin was slightly elevated. Last September the gentleman had a the left heart catheterization by Dr. Rodriguez that indicated moderate disease of a diagonal branch and a normal ejection fraction. During hospitalization he was evaluated by hematology because of monoclonal gammopathy. Also the patient has renal insufficiency. He developed an episode of wide complex tachyarrhythmia with dizziness and near-syncope. He was managed by Dr. Rodriguez. I was consulted for evaluation and management. The chart was reviewed. The patient was evaluated. ALLERGIES MULTIPLE DRUG RESISTANT ORGANISMS. SOCIAL HISTORY The patient quit smoking . FAMILY HISTORY Noncontributory to his current medical condition. MEDICATIONS Currently he is on: 1. Amlodipine 10 mg a day. 2. Lipitor 80 mg a day. 3. Coreg 25 mg twice a day. 4. Clonidine p.r.n. 5. Plavix 75 mg a day. 6. Lasix 40 mg a day. 7. Neurontin 300 mg twice a day. 8. Hydralazine 75 mg q.8h. 9. Oxycodone. 10.Potassium. REVIEW OF SYSTEMS Currently he refers no chest pain, no chest discomfort, no vomiting, no diarrhea, no fever. PHYSICAL EXAMINATION GENERAL: Alert, fully oriented, pleasant, in bed. VITAL SIGNS: Blood pressure 150/84, pulse 75, respiratory rate 18. LUNGS: Ventilated. CARDIOVASCULAR: S1, S2, regular. ABDOMEN: Soft. No mass. No bruit. EXTREMITIES: No edema. EKG DATA Electrocardiogram shows sinus rhythm, some rare PACs. LABORATORY DATA Hemoglobin 10.4, white blood cell count 10.2. Potassium 5.2, creatinine 2.10, was 1.96 yesterday. HDL 40, LDL 134, total cholesterol 201. INR 0.9. ASSESSMENT AND RECOMMENDATION Mr. Stiles is currently stable. He is in bed. He just had a bone biopsy, referred pain in the area. He is scheduled for a kidney biopsy tomorrow. He has only two episodes of wide complex tachyarrhythmia. At this point my recommendation is to proceed with kidney biopsy. Because he had a left heart catheterization in September and the lesion in the diagonal branch was apparently not significant for intervention, I would recommend a nuclear stress study to evaluate possible ischemia. If there is no ischemia then I will proceed with electrophysiology study. The case was extensively discussed with the gentleman. His blood pressure needs to be better controlled. I will monitor him during the hospitalization. MD NAVEEN Daigle/VISHAL /7:50 PM /7:03 AM
[2016-03-09 07:48] LABS: MEAN CELL VOLUME 97.2 FL (80.0-100.0); MEAN CORPUSCULAR HEMOGLOBIN 33.4 PG (27.0-34.0); MEAN CORPUSCULAR HGB CONC 34.4 % (32.0-36.0); PLATELET COUNT 298 TH/MM3 (150-450); RED BLOOD COUNT 2.88 MIL/MM3 (4.50-5.90); RED CELL DISTRIBUTION WIDTH 14.1 % (11.6-17.2); REVIEW FLAG FINAL; WHITE BLOOD COUNT 9.8 TH/MM3 (4.0-11.0)
[2016-03-09 08:12] LABS: BICARBONATE 25.9 MEQ/L (21.0-32.0); POTASSIUM 4.9 MEQ/L (3.5-5.1)
[2016-03-09] MEDS: GABAPENTIN 300 MG CAP PO SCH ×2 (08:15→22:37)
[2016-03-09] MEDS: CARVEDILOL 12.5 MG TAB PO SCH ×2 (08:15→22:37)
[2016-03-09] MEDS: DOCUSATE SODIUM 50 MG/SENNA 8.6 MG TAB PO SCH ×2 (08:15→22:36)
[2016-03-09] MEDS: CHOLECALCIFEROL (VIT D3) 1000 UNIT TAB PO SCH (08:16)
[2016-03-09] MEDS: ACETAMINOPHEN 500 MG CPLT PO PRN (08:18)
--- NOTE | 2016-03-09 09:46 | PD.ONC.PN ---
Subjective Subjective Remarks Afebrile overnight. Patient states he feels tired and hungry. he is NPO for kidney biopsy today. He still has pain in RUQ. Objective Data Date Time Temp Pulse Resp B/P Pulse Ox O2 Delivery O2 Flow Rate FiO2 03/09/16 08:00 98.1 78 16 154/74 94 03/09/16 04:00 98.4 74 18 145/69 96 03/09/16 00:00 98.4 79 18 117/64 98 03/08/16 20:20 Room Air 03/08/16 20:00 98.6 79 18 125/65 94 03/08/16 20:00 88 03/08/16 16:05 75 18 150/84 94 03/08/16 16:05 98.5 82 19 122/61 98 03/08/16 15:35 84 18 170/94 94 03/08/16 15:25 98.6 80 18 146/72 95 03/08/16 12:06 98.7 76 18 120/56 94 03/09/16 03/09/16 03/09/16 07:00 15:00 23:00 Intake Total 0 ml Balance 0 ml Result Diagram: 03/09/16 0607 03/09/16 0607 Laboratory Results Laboratory Tests Test 03/09/16 06:07 White Blood Count 9.8 TH/MM3 Red Blood Count 2.88 MIL/MM3 Hemoglobin 9.6 GM/DL Hematocrit 28.0 % Mean Corpuscular Volume 97.2 FL Mean Corpuscular Hemoglobin 33.4 PG Mean Corpuscular Hemoglobin 34.4 % Concent Red Cell Distribution Width 14.1 % Platelet Count 298 TH/MM3 Mean Platelet Volume 9.3 FL Sodium Level 140 MEQ/L Potassium Level 4.9 MEQ/L Chloride Level 108 MEQ/L Carbon Dioxide Level 25.9 MEQ/L Anion Gap 6 MEQ/L Blood Urea Nitrogen 17 MG/DL Creatinine 2.06 MG/DL Estimat Glomerular Filtration 41 ML/MIN Rate Random Glucose 81 MG/DL Calcium Level 7.8 MG/DL Phosphorus Level 4.2 MG/DL Albumin 1.3 GM/DL Administered Medications Medications (Trade) Dose Ordered Sig/Ramakrishna Route PRN Reason Start Time Stop Time Status Last Admin Dose Admin IV Flush (NS Flush) 2 ml UNSCH PRN IVF FLUSH AFTER USING IV ACCESS 02/28/16 16:00 03/08/16 08:41 Amlodipine Besylate (Norvasc) 10 mg DAILY PO 02/28/16 18:15 03/09/16 08:13 Clopidogrel Bisulfate (Plavix) 75 mg DAILY PO 02/28/16 18:15 Hold 03/04/16 10:29 Pantoprazole Sodium (Protonix) 40 mg DAILY@06 PO 02/28/16 18:15 03/09/16 06:13 Potassium Chloride (KCl) 20 meq DAILY PO 02/29/16 09:00 Hold 03/08/16 08:41 Oxycodone HCl (Roxicodone) 10 mg Q4H PRN PO PAIN SCALE 6 TO 10 02/28/16 19:00 03/09/16 06:14 Cyclobenzaprine HCl (Flexeril) 10 mg TID PRN PO SPASM 02/29/16 09:00 03/01/16 17:28 Clonidine (Catapres) 0.1 mg Q6H PRN PO SBP>180, DBP>100 02/28/16 21:30 03/03/16 18:26 Lorazepam (Ativan) 1 mg Q4H PRN PO CIWA 8 - 10 02/28/16 21:45 03/05/16 00:12 Lorazepam (Ativan) 2 mg Q2H PRN PO CIWA 11-14 02/28/16 21:45 03/03/16 20:05 Senna/Docusate Sodium (Kasey-Colace) 2 tab BID PO 03/01/16 21:00 03/09/16 08:15 Gabapentin (Neurontin) 300 mg BID PO 03/02/16 21:00 03/09/16 08:15 Tamsulosin HCl (Flomax) 0.4 mg HS PO 03/04/16 21:00 03/08/16 21:39 Cholecalciferol (Vitamin D3) 2,000 units DAILY PO 03/03/16 19:00 03/09/16 08:16 Hydralazine HCl (Apresoline) 75 mg Q8HR PO 03/04/16 14:00 03/09/16 06:13 Carvedilol (Coreg) 25 mg BID PO 03/05/16 09:00 03/09/16 08:15 Acetaminophen/ Butalbital/ Caffeine (Fioricet 325-50-40) 1 tab Q8H PRN PO SEVERE HEADACHE 03/06/16 17:45 03/07/16 20:24 Acetaminophen (Tylenol) 500 mg Q6H PRN PO HEADACHE 03/06/16 17:45 03/09/16 08:18 Atorvastatin Calcium (Lipitor) 80 mg HS PO 03/08/16 21:00 03/08/16 21:39 Objective Remarks GENERAL: Middle aged male, sitting up in bed in nad, watching TV and playing on the computer. SKIN: Warm and dry. HEAD: Normocephalic. EYES: No injection or drainage. NECK: Supple, trachea midline. CARDIOVASCULAR: Regular rate and rhythm RESPIRATORY: Breath sounds equal bilaterally. No accessory muscle use. GASTROINTESTINAL: Abdomen soft, non-tender, nondistended. EXTREMITIES: No cyanosis NEUROLOGICAL: No obvious focal deficit. Awake, alert, and oriented x3. Assessment/Plan Problem List: (1) Monoclonal gammopathy Status: Acute Plan: 03/09/16: await pathology from bone marrow biopsy. New IgG Herrin- no light chain in urine Associated with CRI and Anemia BM biopsy ordered to r/o plasma cell dyscrasia. Skeletal survey negative but coin like projection noted RUQ- unrelated to reason for the Xray to look for lytic lesions. Evaluation for cause of renal insufficiency ongoing. Assessment 56 y/o man with anemia, CRI associated with IgG kappa monoclonal gammopathy. Plan 1. await pathology from bone marrow biopsy 2. monitor CBC, renal function. Magnolia Ambrose Mar 09, 2016 09:46
--- NOTE | 2016-03-09 10:22 | RADRPT ---
EXAM DATE/TIME: 03/08/2016 14:41 [facility] COMPARISON: No previous studies available for comparison. INDICATIONS : Anemia. SEDATION TIME: 30 minutes BIOPSY SITE: Right iliac wing MEDICATION(S): 1.) 2 mg midazolam (Versed) IV 2.) 100 mcg fentanyl (Sublimaze) IV DEVICE(S): 1.) 11 gauge Bone marrow biopsy needle MEDICAL HISTORY : Myocardial infarction. Hypertension. SURGICAL HISTORY : cardiac catheterization ENCOUNTER: Initial ACUITY: 1 day PAIN SCORE: 0/10 LOCATION: Bilateral pelvis A total of one core specimen(s) were obtained and sent to the laboratory for pathologic evaluation. PROCEDURE: 1. CT guided bone marrow biopsy. 2. Conscious sedation with continuous EKG and oximetry monitoring. 3. EKG and oximetry remained stable throughout the procedure. Prior to the procedure informed consent was obtained. Any appropriate prior imaging studies were rev iewed. The site was prepped in a sterile fashion. Full sterile technique was used, including cap, mask, moses rile gloves and gown and a large sterile sheet. Hand hygiene and 2% chlorhexidine and/or betadine/al cohol prep was utilized per protocol for cutaneous antisepsis. The skin and subcutaneous tissues wer e infiltrated with local anesthetic solution. With CT guidance the previously identified target was localized. Biopsy was performed using the presc ribed needle as above. Following biopsy marrow aspiration was performed with repeat puncture. Adequa te hemostasis was obtained with compression at the puncture site. Follow-up CT scan reveals no hemorrhage. Conscious sedation was performed with the prescribed dosages and duration as above. The patient lexis ated the procedure well and there were no complications. EKG and oximetry remained stable throughout the procedure. The patient was sent to Radiology Outpatient Unit in stable condition. CONCLUSION: 1. Uncomplicated CT guided bone marrow aspirate. 2. Uncomplicated CT guided bone marrow biopsy. Garry Mccloud MD FACR on March 09, 2016 at 10:21 Board Certified Radiologist. This report was verified electronically.
--- NOTE | 2016-03-09 10:53 | HHI.FPPN ---
Subjective Remarks No events overnight. Afebrile. BPs have been ranging from 110s-170s/60s-90s. No events noted on telemetry. Patient denies palpitations. Reports dizziness primarily when sitting up, unchanged from yesterday. Reports chest pain, states it is primarily right-sided and sometimes radiates to left side of chest. States he has some pain around the site of the bone marrow biopsy. Denies dysuria or hematuria or with BMs. (Danny Singletary MD R1) Objective Vitals Vital Signs Date Time Temp Pulse Resp B/P Pulse Ox O2 Delivery O2 Flow Rate FiO2 03/09/16 08:25 80 03/09/16 08:25 Room Air 03/09/16 08:00 98.1 78 16 154/74 94 03/09/16 04:00 98.4 74 18 145/69 96 03/09/16 00:00 98.4 79 18 117/64 98 03/08/16 20:20 Room Air 03/08/16 20:00 98.6 79 18 125/65 94 03/08/16 20:00 88 03/08/16 16:05 75 18 150/84 94 03/08/16 16:05 98.5 82 19 122/61 98 03/08/16 15:35 84 18 170/94 94 03/08/16 15:25 98.6 80 18 146/72 95 03/08/16 12:06 98.7 76 18 120/56 94 I/O 03/08/16 03/08/16 03/08/16 03/09/16 03/09/16 03/09/16 07:00 15:00 23:00 07:00 15:00 23:00 Intake Total 722 ml 520 ml 0 ml Output Total 1500 ml 1325 ml Balance -778 ml -805 ml 0 ml Intake Oral 720 ml 520 ml 0 ml IV Total 2 ml Output Urine Total 1500 ml 1325 ml # Voids 2 2 # Bowel Movements 0 1 0 0 (Danny Singletary MD R1) Result Diagram: 03/09/1660603/09/16606 Objective Remarks GENERAL: Well-developed well-nourished male lying in bed appearing in no acute distress CARDIOVASCULAR: Normal rate, regular rhythm. 2/6 systolic ejection murmur at right upper sternal border and apex of heart. RESPIRATORY: CTAB. No crackles or wheezes. Normal respiratory rate GASTROINTESTINAL: Abdomen soft, non-distended, nontender to palpation, no guarding. MUSCULOSKELETAL: Extremities without edema. NEUROLOGICAL: Awake and alert. Cranial nerves grossly intact. Grossly normal sensory and motor function. (Danny Singletary MD R1) A/P Assessment and Plan 56-year-old male with history of significant coronary artery disease and uncontrolled hypertension presenting with: Discharge Planning Home following renal and bone marrow biopsy (Danny Singletary MD R1) Attending Attestation Patient seen and examined. Case reviewed and discussed Agree with plan of care as discussed with me and documented in the resident note. (Cathleen Flores MD) Problem List: (1) Uzhjy-lq-vkzcock kidney injury Status: Acute Plan: Creatinine 2.50 on admission, baseline around 1.24 back in 10/2015 Renal U/S showing early chronic changes and distended bladder + enlarged prostate Cr remaining ~2.0 24 h urine showing nephrotic range proteinuria (> 10,000) C3 normal, C4 41 MISTY negative Ig panel wnl Anti-Proteinase 3, myeloperoxidase negative Hepatitis panel, HIV negative Free [place] Light and Free Lambda light chains- elevated (107.01/100.84 respectively) Urine monoclonal protein negative Nephrology consulted, appreciate their recommendations: -Good PO fluid intake, IVF discontinued 03/03/16 -Renally dose medications -Plan for renal biopsy today after 3 days of held Plavix and aspirin -Hematology consulted to rule-out myeloma/amyloid due to monoclonal protein elevation -Hold home Lasix given no clinical evidence of pulmonary edema or other fluid overload at this time -Tamsulosin 0.4 mg po HS -Hold home KCl 20mEq po daily as K was 5.2 yesterday, 4.9 today. Resume if necessary. -BMP daily, monitor electrolytes (2) Cardiac disease Status: Acute Plan: Impression: On admission, patient with acute onset chest pain and shortness of breath in setting of elevated troponin and no ST segment changes on EKG Patient subsequently reported dizziness/lightheadedness / in associated with brief ventricular arrhythmia on telemetry Echo 03/01/16 showing EF 55-60% and moderate aortic root dilation, no wall motion abnormality. No significant events on Telemetry Troponin: 0.09 --> 0.10 --> 0.08 BNP 93 -Cardiology consulted, appreciate their recommendations * Electrophysiology consultation per cardiology * MRA chest normal; no aortic dissection * Repeat electrolytes -Mg, Phosphorus wnl * Cardiology feels etiology of chest pain is arthritis and radiculopathy (known problem to patient) * Continue beta isaac, statin * Control HTN * Holding ASA, Plavix due to anticipated renal Bx 03/09 -Tylenol and oxycodone as needed for pain (3) Monoclonal gammopathy present on serum protein electrophoresis Status: Acute Plan: Impression: Free [place] Light and Free Lambda light chains- elevated ( 107.01/100.84 respectively) No light chain in the urine -Continue renal diagnostic work-up per Nephrology -Hematology consulted -Bone marrow biopsy to rule-out dyscrasia -Skeletal survey -negative, but RUQ coin lesion present -lateral abdomen x-ray normal (4) Hypertension Status: Acute Plan: Persistent hypertension over hospitalization * Will continue current regimen, continue to monitor vitals q4h * Continue hydralazine 75 mg po q8h * Continue home amlodipine 10mg po daily * Continue Coreg 25 mg po BID * Clonidine 0.1 mg q6h prn blood pressure greater than 180/100 (5) Weakness of right arm Status: Chronic Plan: Patient has history of "nerve impingement" of the right upper extremity causing numbness or tingling, however the weakness is a new symptom in the last 4 days. Per the patient he woke up with this symptom 4 days prior to admission and it has improved somewhat but is still persistent. No prior history of stroke. Likely related to arthritis and radiculopathy. 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, no other infarct Carotid US with bilateral bifurcation plaques but no narrowing MRI shoulder showing rotator cuff tendinopathy and arthritic changes, no tear -Continue PT/OT; plan for continued treatment as outpatient (6) ETOH abuse Status: Chronic Plan: Per patient, he has not had anything to drink in quite some time and this is since he was last in the service years ago * CIWA protocol (7) Dysuria Status: Acute Plan: Mild, associated with some frequency and hesitancy for which PCP was working him up for prostate issues UA showing large protein, mild occult blood * Continue flomax * F/u as outpatient (8) DVT prophylaxis Status: Acute Plan: SQH 5000 units TID -Held prior to bone marrow biopsy -Held prior to renal biopsy (9) Nutrition, metabolism, and development symptoms Status: Acute Plan: Fluids: None at this time Electrolytes: Monitor and replace as needed Nutrition: Has been NPO after midnight ahead to renal biopsy. Resume heart healthy diet after biopsy wdw Dr. Flores (Danny Singletary MD R1) Problem Qualifiers (1) Hypertension: Qualified Code: I10 - Essential hypertension Danny Singletary MD R1 Mar 09, 2016 10:53 Cathleen Flores MD Mar 09, 2016 17:06
--- NOTE | 2016-03-09 11:12 | HHI.NPPN ---
Subjective History of Present Illness The patient is a 56 yo AA male who presented to this facility on 02/27 with complaints of chest pain radiating down into arm. He also is complaining of LE edema that started approximately in August, but has recently been worsening. There is mention in his chart about hypertensive nephrosclerosis, but the patient is not aware of any history of renal decline. PMHx includes HTN that was only formally dx within the past 2 years (but question of longer diagnosis) , CAD s/p cardiac cath in September 2015, HLD, OA. Of note, he was complaining of dysuria and urinary hesitancy for the past several weeks. US showed prostatic enlargement. Denies any new medications recently. Also denies any NSAID use. Admitting SCr was 2.50 that improved to 2.24 at time of consult 11/22/15 SCr was 1.24, but otherwise baseline appears to be between 1.7-1.9 since Jan 2015 Prior SCr levels were in 0.8-0.9 range as per previous records. Interval History Pt resting today. s/p bone marrow bx yesterday. Renal bx pending for this afternoon (Kelley Lora) Review of Systems General Constitutional: Fatigue (Kelley Lora) Cardiovascular Cardiac: Palpitations Cardiac Remarks occasional in the AMs (Kelley Lora) Objective Data Data 03/08/16 03/09/16 19:00 07:00 Intake Total 722 ml 520 ml Output Total 1750 ml 1075 ml Balance -1028 ml -555 ml Intake Oral 720 ml 520 ml IV Total 2 ml Output Urine Total 1750 ml 1075 ml # Voids 2 # Bowel Movements 1 0 Vital Signs Date Time Temp Pulse Resp B/P Pulse Ox O2 Delivery O2 Flow Rate FiO2 03/09/16 08:25 80 03/09/16 08:25 Room Air 03/09/16 08:00 98.1 78 16 154/74 94 03/09/16 04:00 98.4 74 18 145/69 96 03/09/16 00:00 98.4 79 18 117/64 98 03/08/16 20:20 Room Air 03/08/16 20:00 98.6 79 18 125/65 94 03/08/16 20:00 88 03/08/16 16:05 75 18 150/84 94 03/08/16 16:05 98.5 82 19 122/61 98 03/08/16 15:35 84 18 170/94 94 03/08/16 15:25 98.6 80 18 146/72 95 03/08/16 12:06 98.7 76 18 120/56 94 (Kelley Lora) -: 03/09/16 0607 03/09/16 0607 Medication Review Current Medications Medications (Trade) Dose Ordered Sig/Ramakrishna Route Start Time Stop Time Status Last Admin (NS Flush) 2 ml UNSCH PRN IVF 02/28/16 16:00 03/08/16 08:41 (Norvasc) 10 mg DAILY PO 02/28/16 18:15 03/09/16 08:13 (Plavix) 75 mg DAILY PO 02/28/16 18:15 Hold 03/04/16 10:29 (Lasix) 40 mg DAILY PO 02/29/16 09:00 Hold (Protonix) 40 mg DAILY@06 PO 02/28/16 18:15 03/09/16 06:13 (KCl) 20 meq DAILY PO 02/29/16 09:00 Hold 03/08/16 08:41 (Roxicodone) 10 mg Q4H PRN PO 02/28/16 19:00 03/09/16 06:14 (Flexeril) 10 mg TID PRN PO 02/29/16 09:00 03/01/16 17:28 (Catapres) 0.1 mg Q6H PRN PO 02/28/16 21:30 03/03/16 18:26 (Ativan) 1 mg Q4H PRN PO 02/28/16 21:45 03/05/16 00:12 (Ativan Inj) 1 mg Q4H PRN IV PUSH 02/28/16 21:45 (Ativan) 2 mg Q2H PRN PO 02/28/16 21:45 03/03/16 20:05 (Ativan Inj) 2 mg Q2H PRN IV PUSH 02/28/16 21:45 (Ativan Inj) 2 mg Q1H PRN IV PUSH 02/28/16 21:45 (Ativan Inj) 2 mg Q15M PRN IV PUSH 02/28/16 21:45 (Kasey-Colace) 2 tab BID PO 03/01/16 21:00 03/09/16 08:15 (Neurontin) 300 mg BID PO 03/02/16 21:00 03/09/16 08:15 (Flomax) 0.4 mg HS PO 03/04/16 21:00 03/08/16 21:39 (Vitamin D3) 2,000 units DAILY PO 03/03/16 19:00 03/09/16 08:16 (Apresoline) 75 mg Q8HR PO 03/04/16 14:00 03/09/16 06:13 (Coreg) 25 mg BID PO 03/05/16 09:00 03/09/16 08:15 (Fioricet 325-50-40) 1 tab Q8H PRN PO 03/06/16 17:45 03/07/16 20:24 (Tylenol) 500 mg Q6H PRN PO 03/06/16 17:45 03/09/16 08:18 (Lipitor) 80 mg HS PO 03/08/16 21:00 03/08/16 21:39 (Percocet 5-325 Mg) 1 tab Q4H PRN PO 03/08/16 16:00 (Kelley Lora) Physical Exam General Appearance: Well Developed, Well Nourished, No Acute Distress, Comfortable ( Kelley Lora) Pulmonary Resp Exam: Clear Bilaterally, Breath Sounds Equal (Kelley Lora) Cardiology CV Exam: Regular, Normal Sinus Rhythm (Kelley Lora) Gastrointestinal/Abdomen GI Exam: Soft, Non-Tender (Kelley Lora) Musculoskeletal MS Exam: Joints Intact (Kelley Lora) Integumentary Skin Exam: Clear, Warm, Dry (Kelley Lora) Extremeties Extremities Exam: No Edema (Kelley Lora) Neurologic Neuro Exam: Alert, Awake, Oriented (Kelley Lora) Psychiatric Psych Exam: Appropriate Responses (Kelley Lora) Assessment/Plan Discussed Condition With: Patient Problem List: (1) Acute on chronic renal insufficiency Plan: Differential diagnosis at this point in time would include focal segmental glomerulosclerosis primary versus secondary, membranous disease and less likely minimal change disease in view of the deterioration in the patient' s GFR. The presence of a monoclonal protein on the serum immunofixation raises the possibility of myeloma or amyloid. Should be noted however that the urine was negative as far as monoclonal protein was concerned. Bone marrow bx 03/08/16--pending results Kidney bx scheduled for 03/09/16 Medications should be adjusted for the patient's renal decline. Avoid nephrotoxic medications including iodinated contrast dyes and NSAIDs. Avoid gadolinium when eGFR <30. (2) Monoclonal gammopathy Plan: Appreciate heme input (3) Hypertension Plan: Continue current hypertensive regimen. (4) Proteinuria Plan: Nephrotic range with associated hypoalbuminemia. Etiology to be determined. (5) Prostate enlargement Plan: Monitor I&Os. Would recommend urological consult as outpatient. Continue on Flomax. (Kelley Lora) Plan The exam, history, and the medical decision-making described in the above note were completed with the assistance of the PA-C. I reviewed and agree with the findings presented. (Radha Marie MD) Problem Qualifiers (1) Hypertension: Qualified Code: I10 - Essential hypertension Kelley Lora Mar 09, 2016 11:12 Radha Marie MD Mar 12, 2016 13:29
--- NOTE | 2016-03-09 13:20 | PD.CARD.PN ---
Subjective Subjective Remarks c/o am flutters o/w in nad Objective Vital Signs / I&O Vital Signs Date Time Temp Pulse Resp B/P Pulse Ox O2 Delivery O2 Flow Rate FiO2 03/09/16 12:00 98.5 68 16 105/54 100 03/09/16 08:25 80 03/09/16 08:25 Room Air 03/09/16 08:00 98.1 78 16 154/74 94 03/09/16 04:00 98.4 74 18 145/69 96 03/09/16 00:00 98.4 79 18 117/64 98 03/08/16 20:20 Room Air 03/08/16 20:00 98.6 79 18 125/65 94 03/08/16 20:00 88 03/08/16 16:05 75 18 150/84 94 03/08/16 16:05 98.5 82 19 122/61 98 03/08/16 15:35 84 18 170/94 94 03/08/16 15:25 98.6 80 18 146/72 95 I/O 03/08/16 03/08/16 03/08/16 03/09/16 03/09/16 03/09/16 07:00 15:00 23:00 07:00 15:00 23:00 Intake Total 722 ml 520 ml 0 ml Output Total 1500 ml 1325 ml Balance -778 ml -805 ml 0 ml Intake Oral 720 ml 520 ml 0 ml IV Total 2 ml Output Urine Total 1500 ml 1325 ml # Voids 2 2 # Bowel Movements 0 1 0 0 Physical Exam GENERAL: SKIN: Warm and dry. HEAD: Normocephalic. EYES: No scleral icterus. No injection or drainage. NECK: Supple, trachea midline. No JVD or lymphadenopathy. CARDIOVASCULAR: Regular rate and rhythm without murmurs, gallops, or rubs. RESPIRATORY: Breath sounds equal bilaterally. No accessory muscle use. GASTROINTESTINAL: Abdomen soft, non-tender, nondistended. MUSCULOSKELETAL: No cyanosis, or edema. BACK: Nontender without obvious deformity. No CVA tenderness. Laboratory Laboratory Tests Test 03/09/16 06:07 White Blood Count 9.8 TH/MM3 Red Blood Count 2.88 MIL/MM3 Hemoglobin 9.6 GM/DL Hematocrit 28.0 % Mean Corpuscular Volume 97.2 FL Mean Corpuscular Hemoglobin 33.4 PG Mean Corpuscular Hemoglobin 34.4 % Concent Red Cell Distribution Width 14.1 % Platelet Count 298 TH/MM3 Mean Platelet Volume 9.3 FL Sodium Level 140 MEQ/L Potassium Level 4.9 MEQ/L Chloride Level 108 MEQ/L Carbon Dioxide Level 25.9 MEQ/L Anion Gap 6 MEQ/L Blood Urea Nitrogen 17 MG/DL Creatinine 2.06 MG/DL Estimat Glomerular Filtration 41 ML/MIN Rate Random Glucose 81 MG/DL Calcium Level 7.8 MG/DL Phosphorus Level 4.2 MG/DL Albumin 1.3 GM/DL Assessment and Plan Problem List: (1) CKD (chronic kidney disease) (2) Diastolic CHF (3) CAD (coronary artery disease) (4) Kpqmv-is-ulnvwhu kidney injury (5) Hypertension (6) Acute on chronic renal insufficiency (7) Proteinuria (8) Monoclonal gammopathy Assessment and Plan 1.) WCT - symptomatic with near syncope, Dr Mcdowell rec nst depending on renal and bm biopsy results 2.) CAD - increase lipitor to 80 qhs, norvasc, plavix held d/t renal biopsy 3.) ? aortic dissection seen on 2d echo, no dissection on chest mra Problem Qualifiers (1) Hypertension: Qualified Code: I10 - Essential hypertension Keegan Rodriguez MD Mar 09, 2016 13:20
[2016-03-09] MEDS ORDERED: LIDOCAINE 1%/EPINEPHrine 1:100,000 SOLN 20 ML VIAL ONE (14:03)
[2016-03-09] MEDS ORDERED: MIDAZOLAM HCL 5 MG/5 ML VIAL ONE (14:25)
[2016-03-09] MEDS ORDERED: fentaNYL CITRATE 250 MCG/5 ML AMP ONE (14:26)
--- NOTE | 2016-03-09 15:56 | RADRPT ---
EXAM DATE/TIME: 03/09/2016 14:30 [facility] COMPARISON: CT ABDOMEN & PELVIS W/O CONTRAST, October 09, 2015, 11:05. CT ABDOMEN & PELVIS W CONTRAST, January 302014, 23:45. INDICATIONS : Acute renal failure. SEDATION TIME: 30 minutes BIOPSY SITE: Right MEDICATION(S): 1.) 2 mg midazolam (Versed) IV 2.) 100 mcg fentanyl (Sublimaze) IV DEVICE(S): 1.) 18 gauge BioPince needle MEDICAL HISTORY : Hypertension. Cardiovascular disease. Renal failure, acute. SURGICAL HISTORY : None. ENCOUNTER: Initial ACUITY: 1 day PAIN SCORE: 0/10 LOCATION: Right A total of two core specimen(s) were obtained and sent to the laboratory for pathologic evaluation. PROCEDURE: 1. CT guided renal biopsy. 2. Conscious sedation with continuous EKG and oximetry monitoring. 3. EKG and oximetry remained stable throughout the procedure. Prior to the procedure informed consent was obtained. Any appropriate prior imaging studies were rev iewed. The site was prepped in a sterile fashion. Full sterile technique was used, including cap, mask, moses rile gloves and gown and a large sterile sheet. Hand hygiene and 2% chlorhexidine and/or betadine/al cohol prep was utilized per protocol for cutaneous antisepsis. The skin and subcutaneous tissues wer e infiltrated with local anesthetic solution. With CT guidance the previously identified target was localized. Biopsy was performed using the presc ribed needle as above. Adequate hemostasis was obtained with compression at the puncture site. Follow-up CT scan reveals no hemorrhage. The patient tolerated the procedure well and there were no complications. The patient was returned to the Radiology Outpatient Unit in stable condition. CONCLUSION: Uncomplicated CT guided biopsy of the right lower pole kidney. Troy Cruz MD on March 09, 2016 at 15:53 Board Certified Radiologist. This report was verified electronically.
[2016-03-09 17:28] LABS: AUTOMATED NEUTROPHIL # 6.1 TH/MM3 (1.8-7.7); BASOPHIL # 0.1 TH/MM3 (0-0.2); BASOPHIL % 0.9 % (0.0-2.0); EOSINOPHIL # 0.3 TH/MM3 (0-0.4); EOSINOPHIL % 3.1 % (0.0-4.0); HEMATOCRIT 32.2 % (39.0-51.0); HEMO FLAGS DIFF FINAL; LYMPH % 22.9 % (9.0-44.0); LYMPHOCYTE # 2.1 TH/MM3 (1.0-4.8); MEAN CELL VOLUME 97.6 FL (80.0-100.0); MEAN CORPUSCULAR HEMOGLOBIN 32.9 PG (27.0-34.0); MEAN CORPUSCULAR HGB CONC 33.7 % (32.0-36.0); NEUT % 66.1 % (16.0-70.0); PLATELET COUNT 330 TH/MM3 (150-450); RED CELL DISTRIBUTION WIDTH 13.9 % (11.6-17.2); WHITE BLOOD COUNT 9.2 TH/MM3 (4.0-11.0)
--- NOTE | 2016-03-09 20:17 | HHI.PR ---
Subjective Remarks Some pain Objective Vital Signs Date Time Temp Pulse Resp B/P Pulse Ox O2 Delivery O2 Flow Rate FiO2 03/09/16 18:13 98.5 77 16 147/81 100 03/09/16 17:28 86 18 148/72 95 03/09/16 16:58 84 19 154/67 94 03/09/16 16:28 82 18 144/63 96 03/09/16 15:58 79 19 163/89 97 03/09/16 15:28 76 17 134/76 94 03/09/16 15:13 98.6 76 20 139/87 97 03/09/16 12:00 98.5 68 16 105/54 100 03/09/16 08:25 80 03/09/16 08:25 Room Air 03/09/16 08:00 98.1 78 16 154/74 94 03/09/16 04:00 98.4 74 18 145/69 96 03/09/16 00:00 98.4 79 18 117/64 98 03/08/16 20:20 Room Air I/O 03/08/16 03/08/16 03/08/16 03/09/16 03/09/16 03/09/16 07:00 15:00 23:00 07:00 15:00 23:00 Intake Total 722 ml 520 ml 0 ml Output Total 1500 ml 1325 ml Balance -778 ml -805 ml 0 ml Intake Oral 720 ml 520 ml 0 ml IV Total 2 ml Output Urine Total 1500 ml 1325 ml # Voids 2 2 3 # Bowel Movements 0 1 0 0 Result Diagram: 03/09/16 1640 03/09/16 0607 Imaging Alert, fully oriented Lungs: ventilated Heart: S1, S2 regular Abdomen: soft, no mass Ext: no edema Last Impressions Renal Biopsy CT 03/09/16 0000 Signed Impressions: Service Date/Time: Wednesday, March 09, 2016 14:30 - CONCLUSION: Uncomplicated CT guided biopsy of the right lower pole kidney. Troy Cruz MD Bone Biopsy CT 03/08/16 0000 Signed Impressions: Service Date/Time: Tuesday, March 08, 2016 14:41 - CONCLUSION: 1. Uncomplicated CT guided bone marrow aspirate. 2. Uncomplicated CT guided bone marrow biopsy. Garry Mccloud MD FACR Chest Magnetic Resonance Angiograph 03/06/16 0000 Signed Impressions: Service Date/Time: Sunday, March 06, 2016 15:31 - CONCLUSION: Normal examination. Gerardo Marinelli MD Abdomen X-Ray 03/06/16 0000 Signed Impressions: Service Date/Time: Sunday, March 06, 2016 15:05 - CONCLUSION: No acute disease. No evidence of radiopaque foreign body Gerardo Marinelli MD Gall Bladder Ultrasound 03/05/16 0000 Signed Impressions: Service Date/Time: Saturday, March 05, 2016 09:34 - CONCLUSION: 1. Liver is slightly enlarged with some fatty infiltration. No gallstones or biliary ductal dilatation. Pancreatic duct mildly prominent. Small amount of free fluid. Todd Clements MD Bone Osseous Survey 03/05/16 0000 Signed Impressions: Service Date/Time: Saturday, March 05, 2016 21:26 - CONCLUSION: 1. No lytic bone lesions identified. There is a coin shaped radiopaque density overlying the right upper quadrant. It is in uncertain location without benefit of a lateral film. Todd Clements MD Shoulder MRI 03/03/16 0000 Signed Impressions: Service Date/Time: Thursday, March 03, 2016 14:29 - CONCLUSION: 1. Exam degraded by motion. No full-thickness rotator cuff tear identified. Mild rotator cuff tendinopathy. Trace fluid in the subacromial/subdeltoid bursa and around the subscapularis tendon. No joint effusion. Mild osteoarthritis of the right a.c. joint. Todd Clements MD Carotid Artery Ultrasound 03/01/16 0000 Signed Impressions: Service Date/Time: Tuesday, March 01, 2016 22:02 - CONCLUSION: Minimal bilateral bifurcation atherosclerotic plaque. No hemodynamically significant narrowing on either side. Troy Dean MD Upper Extremity Ultrasound 02/29/16 0000 Signed Impressions: Service Date/Time: Monday, February 29, 2016 15:06 - CONCLUSION: No DVT right upper extremity. Troy Dean MD Renal Ultrasound 02/29/16 0000 Signed Impressions: Service Date/Time: Monday, February 29, 2016 15:32 - CONCLUSION: 1. Both kidneys are mildly echogenic suggesting early chronic parenchymal disease. 2. No obstructive uropathy or other acute abnormality demonstrated. 3. Enlarged prostate. Troy Dean MD Head CT 02/29/16 0000 Signed Impressions: Service Date/Time: Monday, February 29, 2016 12:15 - CONCLUSION: Remote right thalamic infarct. Remigio Bill MD Chest X-Ray 02/28/16 1546 Signed Impressions: Service Date/Time: Sunday, February 28, 2016 15:47 - CONCLUSION: No evidence of acute cardiopulmonary disease. Troy Dean MD Current Medications Medications (Trade) Dose Ordered Sig/Ramakrishna Route Start Time Stop Time Status Last Admin (NS Flush) 2 ml UNSCH PRN IVF 02/28/16 16:00 03/08/16 08:41 (Norvasc) 10 mg DAILY PO 02/28/16 18:15 03/09/16 08:13 (Plavix) 75 mg DAILY PO 02/28/16 18:15 Hold 03/04/16 10:29 (Lasix) 40 mg DAILY PO 02/29/16 09:00 Hold (Protonix) 40 mg DAILY@06 PO 02/28/16 18:15 03/09/16 06:13 (KCl) 20 meq DAILY PO 02/29/16 09:00 Hold 03/08/16 08:41 (Roxicodone) 10 mg Q4H PRN PO 02/28/16 19:00 03/09/16 17:57 (Catapres) 0.1 mg Q6H PRN PO 02/28/16 21:30 03/03/16 18:26 (Kasey-Colace) 2 tab BID PO 03/01/16 21:00 03/09/16 08:15 (Neurontin) 300 mg BID PO 03/02/16 21:00 03/09/16 08:15 (Flomax) 0.4 mg HS PO 03/04/16 21:00 03/08/16 21:39 (Vitamin D3) 2,000 units DAILY PO 03/03/16 19:00 03/09/16 08:16 (Apresoline) 75 mg Q8HR PO 03/04/16 14:00 03/09/16 17:57 (Coreg) 25 mg BID PO 03/05/16 09:00 03/09/16 08:15 (Tylenol) 500 mg Q6H PRN PO 03/06/16 17:45 03/09/16 08:18 (Lipitor) 80 mg HS PO 03/08/16 21:00 1/9/17 21:39 (Percocet 5-325 Mg) 1 tab Q4H PRN PO 03/08/16 16:00 Assessment and Plan Problem List: (1) Syncope Status: Acute Plan: No new episode reported today (2) Hypertension Status: Acute Plan: SBP 147. In pain SP renal biopsy (3) Wide-complex tachycardia Status: Acute Plan: No new episode Will need a nuclear stress study to evaluate need for revascularization VS EP study Problem Qualifiers (1) Hypertension: Qualified Code: I10 - Essential hypertension Tonja Mcdowell MD Mar 09, 2016 20:17
[2016-03-09] MEDS: TAMSULOSIN HCL 0.4 MG CAP PO SCH (22:35)
[2016-03-09] MEDS: ATORVASTATIN 80 MG TAB PO SCH (22:36)
[2016-03-10] VITALS: BP 150/72; PULSE 79; RESP 18; TEMP 99.5; O2SAT 95
[2016-03-10 04:00] VITALS: BP 143/71; PULSE 76; RESP 17; TEMP 98.9; O2SAT 95
[2016-03-10] MEDS: hydrALAZINE HCL 25 MG TAB PO SCH (05:58)
[2016-03-10] MEDS: PANTOPRAZOLE SOD 40 MG DELAYED RELEASE TAB PO SCH (05:58)
[2016-03-10 07:14] LABS: HEMATOCRIT 29.1 % (39.0-51.0); MEAN CELL VOLUME 96.9 FL (80.0-100.0); MEAN CORPUSCULAR HEMOGLOBIN 32.3 PG (27.0-34.0); MEAN CORPUSCULAR HGB CONC 33.4 % (32.0-36.0); PLATELET COUNT 327 TH/MM3 (150-450); RED CELL DISTRIBUTION WIDTH 13.7 % (11.6-17.2); REVIEW FLAG FINAL; WHITE BLOOD COUNT 11.5 TH/MM3 (4.0-11.0)
[2016-03-10 07:51] LABS: BICARBONATE 26.9 MEQ/L (21.0-32.0)
[2016-03-10 08:24] VITALS: PULSE 76
[2016-03-10] MEDS: CARVEDILOL 12.5 MG TAB PO SCH ×3 (09:00→22:09)
[2016-03-10] MEDS ORDERED: REGADENOSON INJ 0.4 MG/5 ML SYR ONE (09:15)
[2016-03-10] MEDS: DOCUSATE SODIUM 50 MG/SENNA 8.6 MG TAB PO SCH ×2 (10:28→22:10)
[2016-03-10] MEDS: GABAPENTIN 300 MG CAP PO SCH ×2 (10:28→22:10)
[2016-03-10] MEDS: CHOLECALCIFEROL (VIT D3) 1000 UNIT TAB PO SCH (10:28)
--- NOTE | 2016-03-10 10:29 | RADRPT ---
EXAM DATE/TIME: 03/10/2016 08:44 [facility] COMPARISON: No previous studies available for comparison. INDICATIONS : Left chest pain with near syncopal episode. Elevated troponins. Angina. DOSE: 30.1 mCi Tc99m Myoview at stress. 10.6 mCi Tc99m Myoview at rest. 0.4 mg Lexiscan STRESS SYMPTOMS: Shortness of breath with a headache. EJECTION FRACTION: 45% MEDICAL HISTORY : Renal insufficiency. Hypercholesterolemia. Hypertension. SURGICAL HISTORY : None. ENCOUNTER: Initial ACUITY: 1 week PAIN SCALE: 5/10 LOCATION: Left chest TECHNIQUE: The patient underwent pharmacologic stress with infusion of prescribed dose. Continuous ECG tracing was monitored during stress. Gated SPECT imaging was performed after stress and conventional SPECT i maging was performed at rest. The examination was performed on a SPECT/CT scanner, both attenuation and non-corrected datasets were reviewed. FINDINGS: DISTRIBUTION: The maximum perfused segment at stress is in the septal wall. PERFUSION STUDY: The pattern of perfusion at stress is within normal limits. GATED STUDY: Mild left ventricular chamber dilatation is present and mild global hypokinesis noted CONCLUSION: Mild LV dysfunction. No ischemia RISK CATEGORY: Intermediate (1-3% Annual Mortality Rate) Troy Green MD on March 10, 2016 at 10:24 Board Certified Radiologist. This report was verified electronically.
[2016-03-10] MEDS: ACETAMINOPHEN 500 MG CPLT PO PRN (10:31)
[2016-03-10 12:00] VITALS: BP 136/72; PULSE 84; RESP 18; TEMP 98; O2SAT 97
--- NOTE | 2016-03-10 12:02 | HHI.FPPN ---
Subjective Remarks No acute events overnight. Vital signs unremarkable with exception of a slightly elevated BP around 140-150 systolic. This morning patient went back for nuclear stress test and is currently feeling tired. He also endorses chest pain that he describes as pain radiating from his neck down. He did not experience this pain during the actual stress test. He continues to endorse severe headaches with intermittent episodes of lightheadedness. Episode of lightheadedness has not changed since stopping the Flexeril. There have been no runs of V. tach upon review of telemetry. (Daina Harper MD R2) Objective Vitals Vital Signs Date Time Temp Pulse Resp B/P Pulse Ox O2 Delivery O2 Flow Rate FiO2 03/10/16 08:24 76 03/10/16 08:24 Room Air 03/10/16 04:00 98.9 76 17 143/71 95 03/10/16 00:00 99.5 79 18 150/72 95 03/09/16 20:00 Room Air 03/09/16 20:00 78 03/09/16 20:00 99.0 77 18 142/66 93 03/09/16 18:13 98.5 77 16 147/81 100 03/09/16 17:28 86 18 148/72 95 03/09/16 16:58 84 19 154/67 94 03/09/16 16:28 82 18 144/63 96 03/09/16 15:58 79 19 163/89 97 03/09/16 15:28 76 17 134/76 94 03/09/16 15:13 98.6 76 20 139/87 97 03/09/16 12:00 98.5 68 16 105/54 100 I/O 03/09/16 03/09/16 03/09/16 03/10/16 03/10/16 03/10/16 07:00 15:00 23:00 07:00 15:00 23:00 Intake Total 0 ml 240 ml 0 ml Balance 0 ml 240 ml 0 ml Intake Oral 0 ml 240 ml 0 ml # Voids 2 3 2 2 # Bowel Movements 0 0 0 (Daina Harper MD R2) Result Diagram: 03/10/16 0653 03/10/16 0653 Objective Remarks GENERAL: Well-developed well-nourished male lying in bed appearing in no acute distress but clearly tired. CARDIOVASCULAR: Normal rate, regular rhythm. 2/6 systolic ejection murmur at right upper sternal border and apex of heart. RESPIRATORY: CTAB. No crackles or wheezes. Normal respiratory rate MUSCULOSKELETAL: Extremities without edema. Moderate tenderness to palpation of left and right trapezius muscle. NEUROLOGICAL: Awake and alert. (Daina Harper MD R2) A/P Assessment and Plan 56-year-old male with history of significant coronary artery disease and uncontrolled hypertension presenting with: Discharge Planning Home following renal and bone marrow biopsy and cardiovascular evaluation. Timeline unknown at this point. sdw Dr. Singletary wdw Dr. Flores (Daina Harper MD R2) Attending Attestation Patient seen and examined Case reviewed and discussed Agree with plan of care as discussed with me and documented in the resident note. Patient seen after nuclear stress test. Renal and BM bx results pending. (Cathleen Flores MD) Problem List: (1) Crdey-ry-yjeqeqd kidney injury Status: Acute Plan: Creatinine 2.50 on admission, baseline around 1.24 back in 10/2015. Cr remaining ~2.0 -Renal U/S showing early chronic changes and distended bladder + enlarged prostate -Hematology consulted to rule-out myeloma/amyloid due to monoclonal protein elevation -BMP daily, monitor electrolytes Labs: * 24 h urine showing nephrotic range proteinuria (> 10,000) * C3/C4, Ig panel, Anti-Proteinase 3, myeloperoxidase, Hepatitis, HIV, urine monoclonal protein unremarkable * Free [place] Light and Free Lambda light chains- elevated (107.01/100.84 respectively) Nephrology consulted, appreciate their recommendations: -Renally dose medications -s/p renal biopsy 03/09, results pending Medications: * Tamsulosin 0.4 mg po HS * Home KCL and lasix HELD (2) Cardiac disease Status: Acute Plan: On admission, patient with acute onset chest pain and shortness of breath in setting of elevated troponin and no ST segment changes on EKG. Cardiology consult at that time attributed elevated troponin due to mild renal insufficiency and stated chest pain was likely due to degenerative arthritis of the neck with cervical radiculopathy. -Patient subsequently reported dizziness/lightheadedness 03/06 that was associated with brief ventricular arrhythmia on telemetry * No further incidences on telemetry * ortho static BP ordered but pending -Continues to endorse neck pain that he describes as chest pain * will attempt to modify pain medications as this is likely contributing to Headache -No evidence of CHF exacerbation as BNP was WNL Cardiology consulted, appreciate their recommendations * Electrophysiology consultation per cardiology * Nuclear stress test pending * will need to discuss timing of resuming Plavix and aspirin in relation to possible cardiac procedure. Imaging: * Echo 03/01/16 showing EF 55-60% and moderate aortic root dilation, no wall motion abnormality. * MRA chest normal; no aortic dissection Medications: * Plavix and aspirin on HOLD due to recent biopsy: * Amlodipine 10mg daily * Lipitor 80mg * Coreg 25mg BID * Hydralazine 75mg q8 * Oxycodone, Percocet, adn Tylenol for pain (3) Monoclonal gammopathy present on serum protein electrophoresis Status: Acute Plan: Free [place] Light and Free Lambda light chains- elevated (107.01/100.84 respectively) No light chain in the urine -Continue renal diagnostic work-up per Nephrology -Hematology consulted: appreciate recommendations -Awaiting pathology -Bone marrow biopsy to rule-out dyscrasia -Skeletal survey -negative, but RUQ coin lesion present. Suspect this is due to an actual coin in pocket as repeat imaging did not show lesion again -lateral abdomen x-ray normal (4) Hypertension Status: Chronic Plan: BP improved but still slightly elevated -Has not needed PRN medication since 03/03 -Clonidine 0.1 mg q6h prn blood pressure greater than 180/100 (5) Weakness of right arm Status: Chronic Plan: Patient has history of "nerve impingement" of the right upper extremity causing numbness or tingling. No prior history of stroke. Likely related to arthritis and radiculopathy. -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, no other infarct -Carotid US with bilateral bifurcation plaques but no narrowing -MRI shoulder showing rotator cuff tendinopathy and arthritic changes, no tear -Continue PT/OT; plan for continued treatment as outpatient (6) Nutrition, metabolism, and development symptoms Status: Acute Plan: Fluids: None at this time Electrolytes: Monitor and replace as needed Nutrition: Heart healthy GI PPX: Protonix DVT PPX: SCDs, will resume chemical PPX tomorrow 03/11 to complete a full 24hrs after biopsy and to clarify with cardiology that no procedure is planned. (Daina Harper MD R2) Problem Qualifiers (1) Hypertension: Qualified Code: I10 - Essential hypertension Diana Harper MD R2 Mar 10, 2016 12:02 Cathleen Flores MD Mar 10, 2016 13:32
--- NOTE | 2016-03-10 15:23 | PD.CARD.PN ---
Subjective Subjective Remarks alert in nad Objective Vital Signs / I&O Vital Signs Date Time Temp Pulse Resp B/P Pulse Ox O2 Delivery O2 Flow Rate FiO2 03/10/16 08:24 76 03/10/16 08:24 Room Air 03/10/16 04:00 98.9 76 17 143/71 95 03/10/16 00:00 99.5 79 18 150/72 95 03/09/16 20:00 Room Air 03/09/16 20:00 78 03/09/16 20:00 99.0 77 18 142/66 93 03/09/16 18:13 98.5 77 16 147/81 100 03/09/16 17:28 86 18 148/72 95 03/09/16 16:58 84 19 154/67 94 03/09/16 16:28 82 18 144/63 96 03/09/16 15:58 79 19 163/89 97 03/09/16 15:28 76 17 134/76 94 I/O 03/09/16 03/09/16 03/09/16 03/10/16 03/10/16 03/10/16 07:00 15:00 23:00 07:00 15:00 23:00 Intake Total 0 ml 240 ml 0 ml Balance 0 ml 240 ml 0 ml Intake Oral 0 ml 240 ml 0 ml # Voids 2 3 2 2 # Bowel Movements 0 0 0 Physical Exam GENERAL: SKIN: Warm and dry. HEAD: Normocephalic. EYES: No scleral icterus. No injection or drainage. NECK: Supple, trachea midline. No JVD or lymphadenopathy. CARDIOVASCULAR: Regular rate and rhythm without murmurs, gallops, or rubs. RESPIRATORY: Breath sounds equal bilaterally. No accessory muscle use. GASTROINTESTINAL: Abdomen soft, non-tender, nondistended. MUSCULOSKELETAL: No cyanosis, or edema. BACK: Nontender without obvious deformity. No CVA tenderness. Laboratory Laboratory Tests Test 03/09/16 03/10/16 16:40 06:53 White Blood Count 9.2 TH/MM3 11.5 TH/MM3 Red Blood Count 3.30 MIL/MM3 3.00 MIL/MM3 Hemoglobin 10.9 GM/DL 9.7 GM/DL Hematocrit 32.2 % 29.1 % Mean Corpuscular Volume 97.6 FL 96.9 FL Mean Corpuscular Hemoglobin 32.9 PG 32.3 PG Mean Corpuscular Hemoglobin 33.7 % 33.4 % Concent Red Cell Distribution Width 13.9 % 13.7 % Platelet Count 330 TH/MM3 327 TH/MM3 Mean Platelet Volume 9.7 FL 8.6 FL Neutrophils (%) (Auto) 66.1 % Lymphocytes (%) (Auto) 22.9 % Monocytes (%) (Auto) 7.0 % Eosinophils (%) (Auto) 3.1 % Basophils (%) (Auto) 0.9 % Neutrophils # (Auto) 6.1 TH/MM3 Lymphocytes # (Auto) 2.1 TH/MM3 Monocytes # (Auto) 0.6 TH/MM3 Eosinophils # (Auto) 0.3 TH/MM3 Basophils # (Auto) 0.1 TH/MM3 CBC Comment DIFF FINAL Differential Comment Sodium Level 138 MEQ/L Potassium Level 5.0 MEQ/L Chloride Level 107 MEQ/L Carbon Dioxide Level 26.9 MEQ/L Anion Gap 4 MEQ/L Blood Urea Nitrogen 18 MG/DL Creatinine 2.08 MG/DL Estimat Glomerular Filtration 40 ML/MIN Rate Random Glucose 88 MG/DL Calcium Level 7.9 MG/DL Phosphorus Level 4.5 MG/DL Albumin 1.3 GM/DL Assessment and Plan Problem List: (1) CKD (chronic kidney disease) (2) Diastolic CHF (3) CAD (coronary artery disease) (4) Cpboh-pm-dbduvsr kidney injury (5) Hypertension (6) Acute on chronic renal insufficiency (7) Proteinuria (8) Monoclonal gammopathy Assessment and Plan 1.) WCT - symptomatic with near syncope, f/u rec Dr Mcdowell 2.) CAD - increase lipitor to 80 qhs, norvasc, plavix held d/t renal biopsy, no ischemia with mild lv systolic dysfunction on nst 3.) ? aortic dissection seen on 2d echo, no dissection on chest mra Problem Qualifiers (1) Hypertension: Qualified Code: I10 - Essential hypertension Keegan Rodriguez MD Mar 10, 2016 15:23
[2016-03-10 16:00] VITALS: BP 126/71; PULSE 79; RESP 18; TEMP 98.4; O2SAT 99
[2016-03-10] MEDS: hydrALAZINE HCL 100 MG TAB PO SCH ×2 (16:01→22:09)
--- NOTE | 2016-03-10 16:53 | HHI.PR ---
Subjective Remarks Feeling better Objective Vital Signs Date Time Temp Pulse Resp B/P Pulse Ox O2 Delivery O2 Flow Rate FiO2 03/10/16 08:24 76 03/10/16 08:24 Room Air 03/10/16 04:00 98.9 76 17 143/71 95 03/10/16 00:00 99.5 79 18 150/72 95 03/09/16 20:00 Room Air 03/09/16 20:00 78 03/09/16 20:00 99.0 77 18 142/66 93 03/09/16 18:13 98.5 77 16 147/81 100 03/09/16 17:28 86 18 148/72 95 03/09/16 16:58 84 19 154/67 94 I/O 03/09/16 03/09/16 03/09/16 03/10/16 03/10/16 03/10/16 07:00 15:00 23:00 07:00 15:00 23:00 Intake Total 0 ml 240 ml 0 ml Balance 0 ml 240 ml 0 ml Intake Oral 0 ml 240 ml 0 ml # Voids 2 3 2 2 # Bowel Movements 0 0 0 Result Diagram: 03/10/16 0653 03/10/16 0653 Imaging Alert, fully oriented Lungs: ventilated Heart: S1, S2 regular Abdomen: soft, no mass Ext: no edema Last Impressions Myocardial Perfusion Scan Nuc Med 03/10/16 0000 Signed Impressions: Service Date/Time: Thursday, March 10, 2016 08:44 - CONCLUSION: Mild LV dysfunction. No ischemia RISK CATEGORY: Intermediate (1-3%% Annual Mortality Rate) Troy Green MD Renal Biopsy CT 03/09/16 0000 Signed Impressions: Service Date/Time: Wednesday, March 09, 2016 14:30 - CONCLUSION: Uncomplicated CT guided biopsy of the right lower pole kidney. Troy Cruz MD Bone Biopsy CT 03/08/16 0000 Signed Impressions: Service Date/Time: Tuesday, March 08, 2016 14:41 - CONCLUSION: 1. Uncomplicated CT guided bone marrow aspirate. 2. Uncomplicated CT guided bone marrow biopsy. Garry Mccloud MD FACR Chest Magnetic Resonance Angiograph 03/06/16 0000 Signed Impressions: Service Date/Time: Sunday, March 06, 2016 15:31 - CONCLUSION: Normal examination. Gerardo Marinelli MD Abdomen X-Ray 03/06/16 Signed Impressions: Service Date/Time: Sunday, March 06, 2016 15:05 - CONCLUSION: No acute disease. No evidence of radiopaque foreign body Gerardo Marinelli MD Gall Bladder Ultrasound 03/05/16 0000 Signed Impressions: Service Date/Time: Saturday, March 05, 2016 09:34 - CONCLUSION: 1. Liver is slightly enlarged with some fatty infiltration. No gallstones or biliary ductal dilatation. Pancreatic duct mildly prominent. Small amount of free fluid. Todd Clements MD Bone Osseous Survey 03/05/16 0000 Signed Impressions: Service Date/Time: Saturday, March 05, 2016 21:26 - CONCLUSION: 1. No lytic bone lesions identified. There is a coin shaped radiopaque density overlying the right upper quadrant. It is in uncertain location without benefit of a lateral film. Todd Clements MD Shoulder MRI 03/03/16 0000 Signed Impressions: Service Date/Time: Thursday, March 03, 2016 14:29 - CONCLUSION: 1. Exam degraded by motion. No full-thickness rotator cuff tear identified. Mild rotator cuff tendinopathy. Trace fluid in the subacromial/subdeltoid bursa and around the subscapularis tendon. No joint effusion. Mild osteoarthritis of the right a.c. joint. Todd Clements MD Carotid Artery Ultrasound 03/01/16 Signed Impressions: Service Date/Time: Tuesday, March 01, 2016 22:02 - CONCLUSION: Minimal bilateral bifurcation atherosclerotic plaque. No hemodynamically significant narrowing on either side. Troy Dean MD Upper Extremity Ultrasound 02/29/16 0000 Signed Impressions: Service Date/Time: Monday, February 29, 2016 15:06 - CONCLUSION: No DVT right upper extremity. Troy Dean MD Renal Ultrasound 02/29/16 0000 Signed Impressions: Service Date/Time: Monday, February 29, 2016 15:32 - CONCLUSION: 1. Both kidneys are mildly echogenic suggesting early chronic parenchymal disease. 2. No obstructive uropathy or other acute abnormality demonstrated. 3. Enlarged prostate. Troy Dean MD Head CT 02/29/16 0000 Signed Impressions: Service Date/Time: Monday, February 29, 2016 12:15 - CONCLUSION: Remote right thalamic infarct. Remigio Bill MD Chest X-Ray 02/28/16 9476 Signed Impressions: Service Date/Time: Sunday, February 28, 2016 15:47 - CONCLUSION: No evidence of acute cardiopulmonary disease. Troy Dean MD Current Medications Medications (Trade) Dose Ordered Sig/Ramakrishna Route Start Time Stop Time Status Last Admin (NS Flush) 2 ml UNSCH PRN IVF 02/28/16 16:00 03/08/16 08:41 (Norvasc) 10 mg DAILY PO 02/28/16 18:15 03/09/16 08:13 (Plavix) 75 mg DAILY PO 02/28/16 18:15 Hold 03/04/16 10:29 (Lasix) 40 mg DAILY PO 02/29/16 09:00 Hold (Protonix) 40 mg DAILY@06 PO 02/28/16 18:15 03/10/16 05:58 (KCl) 20 meq DAILY PO 02/29/16 09:00 Hold 03/08/16 08:41 (Roxicodone) 10 mg Q4H PRN PO 02/28/16 19:00 03/10/16 16:02 (Catapres) 0.1 mg Q6H PRN PO 02/28/16 21:30 03/03/16 18:26 (Kasey-Colace) 2 tab BID PO 03/01/16 21:00 03/10/16 10:28 (Neurontin) 300 mg BID PO 03/02/16 21:00 03/10/16 10:28 (Flomax) 0.4 mg HS PO 03/04/16 21:00 03/09/16 22:35 (Vitamin D3) 2,000 units DAILY PO 03/03/16 19:00 03/10/16 10:28 (Coreg) 25 mg BID PO 03/05/16 09:00 03/09/16 22:37 (Tylenol) 500 mg Q6H PRN PO 03/06/16 17:45 03/10/16 10:31 (Lipitor) 80 mg HS PO 03/08/16 21:00 03/09/16 22:36 (Percocet 5-325 Mg) 1 tab Q4H PRN PO 03/08/16 16:00 (Cymbalta Dr) 20 mg BID PO 03/10/16 21:00 (Apresoline) 100 mg Q8HR PO 03/10/16 14:00 03/10/16 16:01 Assessment and Plan Problem List: (1) Syncope Status: Acute Plan: No new episode reported (2) Hypertension Status: Chronic Plan: SBP 143. (3) Wide-complex tachycardia Status: Acute Plan: Nuclear stress study negative On BB. No wide complex tachy Medical management for now. Will be reevaluated in 3 weeks as OP. Problem Qualifiers (1) Hypertension: Qualified Code: I10 - Essential hypertension Tonja Mcdowell MD Mar 10, 2016 16:53
[2016-03-10 20:00] VITALS: BP 153/82; PULSE 82; PULSE 83; RESP 18; TEMP 98.6; O2SAT 97
[2016-03-10] MEDS: ATORVASTATIN 80 MG TAB PO SCH (22:09)
[2016-03-10] MEDS: TAMSULOSIN HCL 0.4 MG CAP PO SCH (22:10)
[2016-03-10] MEDS: DULoxetine HCl DR 20 MG CAP PO SCH (23:45)
[2016-03-11] VITALS (7 sets, daily range): BP systolic 115–137; BP diastolic 57–77; PULSE 72–89; RESP 18–20; TEMP 98–98.8; O2SAT 95–97
[2016-03-11 06:05] LABS: AUTOMATED NEUTROPHIL # 7.6 TH/MM3 (1.8-7.7); BASOPHIL # 0.1 TH/MM3 (0-0.2); BASOPHIL % 0.5 % (0.0-2.0); EOSINOPHIL # 0.3 TH/MM3 (0-0.4); EOSINOPHIL % 2.6 % (0.0-4.0); HEMATOCRIT 30.4 % (39.0-51.0); HEMO FLAGS DIFF FINAL; LYMPH % 21.5 % (9.0-44.0); LYMPHOCYTE # 2.4 TH/MM3 (1.0-4.8); MEAN CELL VOLUME 96.8 FL (80.0-100.0); MEAN CORPUSCULAR HEMOGLOBIN 32.1 PG (27.0-34.0); MEAN CORPUSCULAR HGB CONC 33.2 % (32.0-36.0); MONO % 6.8 % (0.0-8.0); NEUT % 68.6 % (16.0-70.0); PLATELET COUNT 364 TH/MM3 (150-450); RED BLOOD COUNT 3.14 MIL/MM3 (4.50-5.90); RED CELL DISTRIBUTION WIDTH 13.7 % (11.6-17.2)
[2016-03-11 06:18] LABS: BICARBONATE 24.1 MEQ/L (21.0-32.0); POTASSIUM 4.9 MEQ/L (3.5-5.1)
[2016-03-11] MEDS: hydrALAZINE HCL 100 MG TAB PO SCH ×3 (06:41→22:50)
[2016-03-11] MEDS: PANTOPRAZOLE SOD 40 MG DELAYED RELEASE TAB PO SCH (06:41)
[2016-03-11] MEDS: DOCUSATE SODIUM 50 MG/SENNA 8.6 MG TAB PO SCH ×2 (09:00→21:00)
[2016-03-11] MEDS: GABAPENTIN 300 MG CAP PO SCH ×2 (09:47→21:22)
[2016-03-11] MEDS: SODIUM CHLORIDE 0.9% FLUSH 5 ML FLUSH IVF PRN (09:47)
[2016-03-11] MEDS: CARVEDILOL 12.5 MG TAB PO SCH ×2 (09:47→21:22)
[2016-03-11] MEDS: DULoxetine HCl DR 20 MG CAP PO SCH ×2 (09:47→21:22)
[2016-03-11] MEDS: ACETAMINOPHEN 500 MG CPLT PO PRN ×2 (09:47→18:27)
[2016-03-11] MEDS: CHOLECALCIFEROL (VIT D3) 1000 UNIT TAB PO SCH (09:47)
--- NOTE | 2016-03-11 10:30 | HHI.FPPN ---
Subjective Remarks No acute events overnight. Vital signs unremarkable. This morning patient states that his headache has improved and does not have one currently. Has continued to have periodic episodes of dizziness which she thinks was worsened after his stress test yesterday. Patient also complaining of right shoulder pain but is otherwise well. Eating breakfast without issues. Patient does report that he is homeless and will be difficult to contact as an outpatient. Objective Vitals Vital Signs Date Time Temp Pulse Resp B/P Pulse Ox O2 Delivery O2 Flow Rate FiO2 03/11/16 08:00 98.5 78 18 129/67 96 03/11/16 04:00 98.0 72 18 137/63 95 03/11/16 00:00 98.8 76 18 135/77 97 03/10/16 20:00 Room Air 03/10/16 20:00 98.6 83 18 153/82 97 03/10/16 20:00 82 03/10/16 16:00 98.4 79 18 126/71 99 03/10/16 12:00 98.0 84 18 136/72 97 I/O 03/10/16 03/10/16 03/10/16 03/11/16 03/11/16 03/11/16 07:00 15:00 23:00 07:00 15:00 23:00 Intake Total 0 ml 0 ml 360 ml 120 ml Output Total 200 ml Balance 0 ml -200 ml 360 ml 120 ml Intake Oral 0 ml 0 ml 360 ml 120 ml Output Urine Total 200 ml # Voids 2 2 2 # Bowel Movements 0 2 0 1 Result Diagram: 03/11/1642103/11/16421 Objective Remarks GENERAL: Well-developed well-nourished male lying in bed appearing in no acute distress. CARDIOVASCULAR: Normal rate, regular rhythm. 2/6 systolic ejection murmur at right upper sternal border and apex of heart. RESPIRATORY: CTAB. No crackles or wheezes. Normal respiratory rate MUSCULOSKELETAL: Extremities without edema. No calf tenderness. NEUROLOGICAL: Awake and alert. A/P Assessment and Plan 56-year-old male with history of significant coronary artery disease and uncontrolled hypertension presenting with: Discharge Planning Timeline unknown at this point. Depend upon recommendations from hematology/ nephrology in regards to biopsy results. Cardiac-temple patient is clear. sdw Dr. Hayder Posadas Problem List: (1) [id number] kidney injury Status: Acute Plan: Creatinine 2.50 on admission, baseline around 1.24 back in 10/2015. Cr remaining ~2.0 -Renal U/S showing early chronic changes and distended bladder + enlarged prostate -Hematology consulted to rule-out myeloma/amyloid due to monoclonal protein elevation -BMP daily, monitor electrolytes-lab holiday 03/12 Labs: * 24 h urine showing nephrotic range proteinuria (> 10,000) * C3/C4, Ig panel, Anti-Proteinase 3, myeloperoxidase, Hepatitis, HIV, urine monoclonal protein unremarkable * Free [place] Light and Free Lambda light chains- elevated (107.01/100.84 respectively) Nephrology consulted, appreciate their recommendations: -Renally dose medications -s/p renal biopsy 03/09, results pending Medications: * Tamsulosin 0.4 mg po HS * Home KCL and lasix HELD (2) Cardiac disease Status: Acute Plan: On admission, patient with acute onset chest pain and shortness of breath in setting of elevated troponin and no ST segment changes on EKG. Cardiology consult at that time attributed elevated troponin due to mild renal insufficiency and stated chest pain was likely due to degenerative arthritis of the neck with cervical radiculopathy. -Patient subsequently reported dizziness/lightheadedness 03/06 that was associated with brief ventricular arrhythmia on telemetry * No further incidences -Continues to endorse neck pain that he describes as chest pain * added Cymbalta to help with radicular pain -No evidence of CHF exacerbation as BNP was WNL but repeat was ordered on 03/12 by cardiology Cardiology consulted, appreciate their recommendations * Electrophysiology consultation per cardiology * Nuclear stress test negative * OP follow up in 3wks Imaging: * Echo 03/01/16 showing EF 55-60% and moderate aortic root dilation, no wall motion abnormality. * MRA chest normal; no aortic dissection Medications: * Plavix and aspirin resumed * Amlodipine 10mg daily * Lipitor 80mg * Coreg 25mg BID * Hydralazine 100mg q8 * Oxycodone, Percocet, and Tylenol for pain (3) Monoclonal gammopathy present on serum protein electrophoresis Status: Acute Plan: Free [place] Light and Free Lambda light chains- elevated (107.01/100.84 respectively) No light chain in the urine -Continue renal diagnostic work-up per Nephrology -Hematology consulted: appreciate recommendations -Awaiting pathology -Bone marrow biopsy to rule-out dyscrasia -Skeletal survey -negative, but RUQ coin lesion present. Suspect this is due to an actual coin in pocket as repeat imaging did not show lesion again -lateral abdomen x-ray normal (4) Hypertension Status: Chronic Plan: BP improved -Has not needed PRN medication since 03/03 -Clonidine 0.1 mg q6h prn blood pressure greater than 180/100 (5) Weakness of right arm Status: Chronic Plan: Patient has history of "nerve impingement" of the right upper extremity causing numbness or tingling. No prior history of stroke. Likely related to arthritis and radiculopathy. -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, no other infarct -Carotid US with bilateral bifurcation plaques but no narrowing -MRI shoulder showing rotator cuff tendinopathy and arthritic changes, no tear -Continue PT/OT; plan for continued treatment as outpatient (6) Nutrition, metabolism, and development symptoms Status: Acute Plan: Fluids: None at this time Electrolytes: Monitor and replace as needed Nutrition: Heart healthy GI PPX: Protonix DVT PPX: Resumed Lovenox today. Problem Qualifiers (1) Hypertension: Qualified Code: I10 - Essential hypertension Daina Harper MD R2 Mar 11, 2016 10:30
[2016-03-11] MEDS: ENOXAPARIN SODIUM 40 MG/0.4 ML SYRINGE SQ SCH (14:30)
--- NOTE | 2016-03-11 15:48 | PD.CARD.PN ---
Subjective Subjective Remarks c/o sob, fatigue in nad Objective Vital Signs / I&O Vital Signs Date Time Temp Pulse Resp B/P Pulse Ox O2 Delivery O2 Flow Rate FiO2 03/11/16 12:00 98.5 89 20 123/60 95 03/11/16 08:00 98.5 78 18 129/67 96 03/11/16 04:00 98.0 72 18 137/63 95 03/11/16 00:00 98.8 76 18 135/77 97 03/10/16 20:00 Room Air 03/10/16 20:00 98.6 83 18 153/82 97 03/10/16 20:00 82 03/10/16 16:00 98.4 79 18 126/71 99 I/O 03/10/16 03/10/16 03/10/16 03/11/16 03/11/16 03/11/16 07:00 15:00 23:00 07:00 15:00 23:00 Intake Total 0 ml 0 ml 360 ml 120 ml Output Total 200 ml Balance 0 ml -200 ml 360 ml 120 ml Intake Oral 0 ml 0 ml 360 ml 120 ml Output Urine Total 200 ml # Voids 2 2 2 # Bowel Movements 0 2 0 1 Physical Exam GENERAL: SKIN: Warm and dry. HEAD: Normocephalic. EYES: No scleral icterus. No injection or drainage. NECK: Supple, trachea midline. No JVD or lymphadenopathy. CARDIOVASCULAR: Regular rate and rhythm without murmurs, gallops, or rubs. RESPIRATORY: Breath sounds equal bilaterally. No accessory muscle use. GASTROINTESTINAL: Abdomen soft, non-tender, nondistended. MUSCULOSKELETAL: No cyanosis, or edema. BACK: Nontender without obvious deformity. No CVA tenderness. Laboratory Laboratory Tests Test 03/11/16 04:22 White Blood Count 11.0 TH/MM3 Red Blood Count 3.14 MIL/MM3 Hemoglobin 10.1 GM/DL Hematocrit 30.4 % Mean Corpuscular Volume 96.8 FL Mean Corpuscular Hemoglobin 32.1 PG Mean Corpuscular Hemoglobin 33.2 % Concent Red Cell Distribution Width 13.7 % Platelet Count 364 TH/MM3 Mean Platelet Volume 9.2 FL Neutrophils (%) (Auto) 68.6 % Lymphocytes (%) (Auto) 21.5 % Monocytes (%) (Auto) 6.8 % Eosinophils (%) (Auto) 2.6 % Basophils (%) (Auto) 0.5 % Neutrophils # (Auto) 7.6 TH/MM3 Lymphocytes # (Auto) 2.4 TH/MM3 Monocytes # (Auto) 0.7 TH/MM3 Eosinophils # (Auto) 0.3 TH/MM3 Basophils # (Auto) 0.1 TH/MM3 CBC Comment DIFF FINAL Differential Comment Sodium Level 138 MEQ/L Potassium Level 4.9 MEQ/L Chloride Level 107 MEQ/L Carbon Dioxide Level 24.1 MEQ/L Anion Gap 7 MEQ/L Blood Urea Nitrogen 17 MG/DL Creatinine 2.05 MG/DL Estimat Glomerular Filtration 41 ML/MIN Rate Random Glucose 97 MG/DL Calcium Level 7.9 MG/DL Assessment and Plan Problem List: (1) CKD (chronic kidney disease) (2) Diastolic CHF (3) CAD (coronary artery disease) (4) Rklty-zt-niiugxe kidney injury (5) Hypertension (6) Acute on chronic renal insufficiency (7) Proteinuria (8) Monoclonal gammopathy Assessment and Plan 1.) WCT - symptomatic with near syncope, f/u rec Dr Mcdowell , continue coreg 25 mg bid 2.) CAD - increase lipitor to 80 qhs, norvasc, plavix held d/t renal biopsy, no ischemia with mild lv systolic dysfunction on nst 3.) ? aortic dissection seen on 2d echo, no dissection on chest mra 4.) dyspnea - check bnp Problem Qualifiers (1) Hypertension: Qualified Code: I10 - Essential hypertension Keegan Rodriguez MD Mar 11, 2016 15:47
--- NOTE | 2016-03-11 19:33 | PD.ONC.PN ---
Subjective Subjective Remarks No new complaints. Tolerated bm bx and renal bx well. Objective Data Date Time Temp Pulse Resp B/P Pulse Ox O2 Delivery O2 Flow Rate FiO2 03/11/16 16:00 98.0 72 20 126/63 97 03/11/16 12:00 98.5 89 20 123/60 95 03/11/16 08:00 98.5 78 18 129/67 96 03/11/16 08:00 73 03/11/16 08:00 Room Air 03/11/16 04:00 98.0 72 18 137/63 95 03/11/16 00:00 98.8 76 18 135/77 97 03/10/16 20:00 Room Air 03/10/16 20:00 98.6 83 18 153/82 97 03/10/16 20:00 82 03/11/16 03/11/16 03/11/16 07:00 15:00 23:00 Intake Total 120 ml 960 ml Balance 120 ml 960 ml Result Diagram: 03/11/16 0422 03/11/16 0422 Laboratory Results Laboratory Tests Test 03/11/16 04:22 White Blood Count 11.0 TH/MM3 Red Blood Count 3.14 MIL/MM3 Hemoglobin 10.1 GM/DL Hematocrit 30.4 % Mean Corpuscular Volume 96.8 FL Mean Corpuscular Hemoglobin 32.1 PG Mean Corpuscular Hemoglobin 33.2 % Concent Red Cell Distribution Width 13.7 % Platelet Count 364 TH/MM3 Mean Platelet Volume 9.2 FL Neutrophils (%) (Auto) 68.6 % Lymphocytes (%) (Auto) 21.5 % Monocytes (%) (Auto) 6.8 % Eosinophils (%) (Auto) 2.6 % Basophils (%) (Auto) 0.5 % Neutrophils # (Auto) 7.6 TH/MM3 Lymphocytes # (Auto) 2.4 TH/MM3 Monocytes # (Auto) 0.7 TH/MM3 Eosinophils # (Auto) 0.3 TH/MM3 Basophils # (Auto) 0.1 TH/MM3 CBC Comment DIFF FINAL Differential Comment Sodium Level 138 MEQ/L Potassium Level 4.9 MEQ/L Chloride Level 107 MEQ/L Carbon Dioxide Level 24.1 MEQ/L Anion Gap 7 MEQ/L Blood Urea Nitrogen 17 MG/DL Creatinine 2.05 MG/DL Estimat Glomerular Filtration 41 ML/MIN Rate Random Glucose 97 MG/DL Calcium Level 7.9 MG/DL Administered Medications Medications (Trade) Dose Ordered Sig/Ramakrishna Route PRN Reason Start Time Stop Time Status Last Admin Dose Admin IV Flush (NS Flush) 2 ml UNSCH PRN IVF FLUSH AFTER USING IV ACCESS 02/28/16 16:00 03/11/16 09:47 Amlodipine Besylate (Norvasc) 10 mg DAILY PO 02/28/16 18:15 03/11/16 09:47 Clopidogrel Bisulfate (Plavix) 75 mg DAILY PO 02/28/16 18:15 03/04/16 10:29 Pantoprazole Sodium (Protonix) 40 mg DAILY@06 PO 02/28/16 18:15 03/11/16 06:41 Potassium Chloride (KCl) 20 meq DAILY PO 02/29/16 09:00 Hold 03/08/16 08:41 Oxycodone HCl (Roxicodone) 10 mg Q4H PRN PO PAIN SCALE 6 TO 10 02/28/16 19:00 03/11/16 18:27 Clonidine (Catapres) 0.1 mg Q6H PRN PO SBP>180, DBP>100 02/28/16 21:30 03/03/16 18:26 Senna/Docusate Sodium (Kasey-Colace) 2 tab BID PO 03/01/16 21:00 03/10/16 22:10 Gabapentin (Neurontin) 300 mg BID PO 03/02/16 21:00 03/11/16 09:47 Tamsulosin HCl (Flomax) 0.4 mg HS PO 03/04/16 21:00 03/10/16 22:10 Cholecalciferol (Vitamin D3) 2,000 units DAILY PO 03/03/16 19:00 03/11/16 09:47 Carvedilol (Coreg) 25 mg BID PO 03/05/16 09:00 03/11/16 09:47 Acetaminophen (Tylenol) 500 mg Q6H PRN PO HEADACHE 03/06/16 17:45 03/11/16 18:27 Atorvastatin Calcium (Lipitor) 80 mg HS PO 03/08/16 21:00 03/10/16 22:09 Duloxetine HCl (Cymbalta Dr) 20 mg BID PO 03/10/16 21:00 03/11/16 09:47 Hydralazine HCl (Apresoline) 100 mg Q8HR PO 03/10/16 14:00 03/11/16 14:29 Enoxaparin Sodium (Lovenox Inj) 40 mg Q24H SQ 03/11/16 13:00 03/11/16 14:30 Objective Remarks GENERAL: Middle aged male, sitting up in bed watching TV and playing on the computer. SKIN: Warm and dry. HEAD: Normocephalic. EYES: No injection or drainage. NECK: Supple, trachea midline. CARDIOVASCULAR: Regular rate and rhythm RESPIRATORY: Breath sounds equal bilaterally. No accessory muscle use. GASTROINTESTINAL: Abdomen soft, non-tender, nondistended. EXTREMITIES: No cyanosis NEUROLOGICAL: No obvious focal deficit. Awake, alert, and oriented x3. PSYCHIATRIC: Appropriate mood and affect; insight and judgment normal. Assessment/Plan Problem List: (1) Monoclonal gammopathy Status: Acute Plan: 03/11/16: Review with pathology. BM biopsy negative for plasma cell dyscrasia. Furthermore no features to support diagnosis for amyloid contributing to renal failure. Pt has MGUS and discussed continued yearly monitoring. Copy BM bx report provided. 03/09/16: await pathology from bone marrow biopsy. New IgG [place]- no light chain in urine Associated with CRI and Anemia BM biopsy ordered to r/o plasma cell dyscrasia. Skeletal survey negative but coin like projection noted RUQ- unrelated to reason for the Xray to look for lytic lesions. Evaluation for cause of renal insufficiency ongoing. Assessment 56 y/o man with anemia, CRI associated with IgG kappa monoclonal gammopathy. Plan 1. reviewed bone marrow biopsy 2. FU GABRIELLE when DC'd 3. Hematology will sign off, please reconsult as needed. Eli Christianson MD Mar 11, 2016 19:33 Eli Christianson MD Mar 11, 2016 19:33
[2016-03-11] MEDS: ATORVASTATIN 80 MG TAB PO SCH (21:22)
[2016-03-11] MEDS: TAMSULOSIN HCL 0.4 MG CAP PO SCH (21:22)
[2016-03-12] VITALS (7 sets, daily range): BP systolic 107–126; BP diastolic 56–65; PULSE 66–80; RESP 18–20; TEMP 98–98.5; O2SAT 93–100
[2016-03-12] MEDS: ACETAMINOPHEN 500 MG CPLT PO PRN ×3 (06:03→20:22)
[2016-03-12] MEDS: hydrALAZINE HCL 100 MG TAB PO SCH ×3 (06:04→22:20)
[2016-03-12] MEDS: PANTOPRAZOLE SOD 40 MG DELAYED RELEASE TAB PO SCH (06:04)
[2016-03-12] MEDS: DOCUSATE SODIUM 50 MG/SENNA 8.6 MG TAB PO SCH ×2 (09:00→20:22)
[2016-03-12] MEDS: GABAPENTIN 300 MG CAP PO SCH ×2 (10:16→20:22)
[2016-03-12] MEDS: CHOLECALCIFEROL (VIT D3) 1000 UNIT TAB PO SCH (10:16)
[2016-03-12] MEDS: DULoxetine HCl DR 20 MG CAP PO SCH ×2 (10:16→20:21)
[2016-03-12] MEDS: ASPIRIN EC 81 MG TABEC PO SCH (10:16)
[2016-03-12] MEDS: CLOPIDOGREL 75 MG TAB PO SCH (10:16)
[2016-03-12] MEDS: CARVEDILOL 12.5 MG TAB PO SCH ×2 (10:16→20:21)
[2016-03-12] MEDS: SODIUM CHLORIDE 0.9% FLUSH 5 ML FLUSH IVF PRN (10:17)
[2016-03-12] MEDS: ENOXAPARIN SODIUM 40 MG/0.4 ML SYRINGE SQ SCH (13:04)
--- NOTE | 2016-03-12 13:28 | HHI.NPPN ---
Subjective History of Present Illness The patient is a 56 yo AA male who presented to this facility on 02/27 with complaints of chest pain radiating down into arm. He also is complaining of LE edema that started approximately in August, but has recently been worsening. There is mention in his chart about hypertensive nephrosclerosis, but the patient is not aware of any history of renal decline. PMHx includes HTN that was only formally dx within the past 2 years (but question of longer diagnosis) , CAD s/p cardiac cath in September 2015, HLD, OA. Of note, he was complaining of dysuria and urinary hesitancy for the past several weeks. US showed prostatic enlargement. Denies any new medications recently. Also denies any NSAID use. Admitting SCr was 2.50 that improved to 2.24 at time of consult 11/22/15 SCr was 1.24, but otherwise baseline appears to be between 1.7-1.9 since Jan 2015 Prior SCr levels were in 0.8-0.9 range as per previous records. Interval History Patient had no verbal complaints today. Review of Systems General Constitutional: Fatigue Cardiovascular Cardiac: Palpitations Cardiac Remarks occasional in the AMs Objective Data Data 03/11/16 03/12/16 19:00 07:00 Intake Total 960 ml 360 ml Balance 960 ml 360 ml Intake Oral 960 ml 360 ml # Voids 3 2 # Bowel Movements 1 0 Vital Signs Date Time Temp Pulse Resp B/P Pulse Ox O2 Delivery O2 Flow Rate FiO2 03/12/16 12:00 98.3 66 20 107/56 97 03/12/16 08:00 98.2 77 20 125/65 93 03/12/16 08:00 71 03/12/16 08:00 Room Air 03/12/16 04:00 98.4 80 18 116/56 94 03/12/16 00:00 98.5 72 18 122/60 99 03/11/16 21:30 Room Air 03/11/16 21:30 78 03/11/16 20:00 98.3 76 18 115/57 97 03/11/16 16:00 98.0 72 20 126/63 97 -: 03/11/16 0422 03/11/16 0422 Physical Exam General Appearance: Well Developed, Well Nourished, No Acute Distress, Comfortable Pulmonary Resp Exam: Clear Bilaterally, Breath Sounds Equal Cardiology CV Exam: Regular, Normal Sinus Rhythm Gastrointestinal/Abdomen GI Exam: Soft, Non-Tender Musculoskeletal MS Exam: Joints Intact Integumentary Skin Exam: Clear, Warm, Dry Extremeties Extremities Exam: No Edema Neurologic Neuro Exam: Alert, Awake, Oriented Psychiatric Psych Exam: Appropriate Responses Assessment/Plan Discussed Condition With: Patient Problem List: (1) Acute on chronic renal insufficiency Plan: Patient's creatinine level appears to have reached baseline level. The pathologist called me with a preliminary report in regard to the kidney biopsy. Unfortunately the full report is not back as yet. 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 I do not believe that the patient has an acute thrombotic microangiopathy as his platelet count is normal. I will get LDH level and peripheral blood smear for completeness however. I need the full report to determine whether or not the patient had evidence of complement deposition or significant immunoglobulin deposition on the biopsy. An uncommon cause of membranoproliferative glomerulonephritis would be monoclonal gammopathy of unknown significance which the patient has been diagnosed with however they would have to be evidence of significant immunoglobulin deposition on the kidney biopsy for this to be a consideration. If this is the case we will recall hematology. Another potential etiology would be illicit drug use however the patient indicated to me that he has not used illicit drugs in several years. I.e. cocaine or narcotics intravenously. Uncontrolled hypertension could also be associated with a thrombotic microangiopathy so this is also consideration. Regardless until I get the final report on his kidney biopsy in regard to the presence or absence of complement or metabolic deposition or absence of same I cannot give a definitive opinion as discussed with the patient. We'll order above-mentioned studies for completeness. Medications should be adjusted for the patient's renal decline. Avoid nephrotoxic medications including iodinated contrast dyes and NSAIDs. Avoid gadolinium when eGFR <30. (2) Monoclonal gammopathy Plan: Appreciate heme input (3) Hypertension Plan: Continue current hypertensive regimen. (4) Proteinuria Plan: Nephrotic range with associated hypoalbuminemia. Etiology to be determined. (5) Prostate enlargement Plan: Monitor I&Os. Would recommend urological consult as outpatient. Continue on Flomax. Problem Qualifiers (1) Hypertension: Qualified Code: I10 - Essential hypertension Radha Marie MD Mar 12, 2016 13:28
--- NOTE | 2016-03-12 15:51 | HHI.FPPN ---
Subjective Remarks No acute events overnight. Vital signs unremarkable. This morning he continues to complain of generalized neck pain and intermittent episodes of lightheadedness. Also complaining of SOB. The symptoms have not worsened acutely but are his chronic complaints. Objective Vitals Vital Signs Date Time Temp Pulse Resp B/P Pulse Ox O2 Delivery O2 Flow Rate FiO2 03/12/16 12:00 98.3 66 20 107/56 97 03/12/16 08:00 98.2 77 20 125/65 93 03/12/16 08:00 71 03/12/16 08:00 Room Air 03/12/16 04:00 98.4 80 18 116/56 94 03/12/16 00:00 98.5 72 18 122/60 99 03/11/16 21:30 Room Air 03/11/16 21:30 78 03/11/16 20:00 98.3 76 18 115/57 97 03/11/16 16:00 98.0 72 20 126/63 97 I/O 03/11/16 03/11/16 03/11/16 03/12/16 03/12/16 03/12/16 07:00 15:00 23:00 07:00 15:00 23:00 Intake Total 120 ml 960 ml 360 ml Balance 120 ml 960 ml 360 ml Intake Oral 120 ml 960 ml 360 ml # Voids 2 3 2 # Bowel Movements 1 1 0 Result Diagram: 03/11/1642103/11/16421 Objective Remarks GENERAL: Well-developed well-nourished male lying in bed appearing in no acute distress. CARDIOVASCULAR: Normal rate, regular rhythm. 2/6 systolic ejection murmur at right upper sternal border and apex of heart. RESPIRATORY: CTAB. No crackles or wheezes. Normal respiratory rate MUSCULOSKELETAL: Extremities without edema. No calf tenderness. NEUROLOGICAL: Awake and alert. Does appear to have a depressed mood. A/P Assessment and Plan 56-year-old male with history of significant coronary artery disease and uncontrolled hypertension presenting with: Discharge Planning Timeline unknown at this point. Depends upon recommendations from hematology/ nephrology in regards to biopsy results. Cardiac-temple patient is clear. sdw Dr. Singletary wdw Dr. Posadas Problem List: (1) Irwhw-so-dyxyzpz kidney injury Status: Acute Plan: Creatinine 2.50 on admission, baseline around 1.24 back in 10/2015. 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 Cardiology consult at that time attributed elevated troponin due to mild renal insufficiency and stated chest pain was likely due to degenerative arthritis of the neck with cervical radiculopathy. -Patient subsequently reported dizziness/lightheadedness 03/06 that was associated with brief ventricular arrhythmia on telemetry * No further incidences -Continues to endorse neck pain that he describes as chest pain * added Cymbalta to help with radicular pain -No evidence of CHF exacerbation as BNP was WNL Cardiology consulted, appreciate their recommendations * Electrophysiology consultation per cardiology * Nuclear stress test negative * OP follow up in 3wks Imaging: * Echo 03/01/16 showing EF 55-60% and moderate aortic root dilation, no wall motion abnormality. * MRA chest normal; no aortic dissection Medications: * Plavix and aspirin resumed * Amlodipine 10mg daily * Lipitor 80mg * Coreg 25mg BID * Hydralazine 100mg q8 * Oxycodone, Percocet, and Tylenol for pain (3) Monoclonal gammopathy present on serum protein electrophoresis Status: Acute Plan: Free [place] Light and Free [place]ambda light chains- elevated (107.01/100.84 respectively) No light chain in the urine -Continue renal diagnostic work-up per Nephrology -Hematology consulted: appreciate recommendations -BM negative for plasma cell dyscrasia -Skeletal survey -negative, but RUQ coin lesion present. Suspect this is due to an actual coin in pocket as repeat imaging did not show lesion again -lateral abdomen x-ray normal -Follow up at [facility] when discharged. -Signed off 03/11/16 (4) Hypertension Status: Chronic Plan: BP improved. May need to consider decreasing as blood pressure is beginning to drop -Has not needed PRN medication since 03/03 -Clonidine 0.1 mg q6h prn blood pressure greater than 180/100 (5) Weakness of right arm Status: Chronic Plan: Patient has history of "nerve impingement" of the right upper extremity causing numbness or tingling. No prior history of stroke. Likely related to arthritis and radiculopathy. -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, no other infarct -Carotid US with bilateral bifurcation plaques but no narrowing -MRI shoulder showing rotator cuff tendinopathy and arthritic changes, no tear -Continue PT/OT; plan for continued treatment as outpatient (6) Nutrition, metabolism, and development symptoms Status: Acute Plan: Fluids: None at this time Electrolytes: Monitor and replace as needed Nutrition: Heart healthy GI PPX: Protonix DVT PPX: Lovenox today. Problem Qualifiers (1) Hypertension: Qualified Code: I10 - Essential hypertension Daina Harper MD R2 Mar 12, 2016 15:51
--- NOTE | 2016-03-12 18:27 | PD.CARD.PN ---
Subjective Subjective Remarks alert in nad, feels better Objective Vital Signs / I&O Vital Signs Date Time Temp Pulse Resp B/P Pulse Ox O2 Delivery O2 Flow Rate FiO2 03/12/16 16:00 98.3 69 20 126/60 94 03/12/16 12:00 98.3 66 20 107/56 97 03/12/16 08:00 98.2 77 20 125/65 93 03/12/16 08:00 71 03/12/16 08:00 Room Air 03/12/16 04:00 98.4 80 18 116/56 94 03/12/16 00:00 98.5 72 18 122/60 99 03/11/16 21:30 Room Air 03/11/16 21:30 78 03/11/16 20:00 98.3 76 18 115/57 97 I/O 03/11/16 03/11/16 03/11/16 03/12/16 03/12/16 03/12/16 07:00 15:00 23:00 07:00 15:00 23:00 Intake Total 120 ml 960 ml 360 ml 600 ml Balance 120 ml 960 ml 360 ml 600 ml Intake Oral 120 ml 960 ml 360 ml 600 ml # Voids 2 3 2 4 # Bowel Movements 1 1 0 1 Physical Exam GENERAL: SKIN: Warm and dry. HEAD: Normocephalic. EYES: No scleral icterus. No injection or drainage. NECK: Supple, trachea midline. No JVD or lymphadenopathy. CARDIOVASCULAR: Regular rate and rhythm without murmurs, gallops, or rubs. RESPIRATORY: Breath sounds equal bilaterally. No accessory muscle use. GASTROINTESTINAL: Abdomen soft, non-tender, nondistended. MUSCULOSKELETAL: No cyanosis, or edema. BACK: Nontender without obvious deformity. No CVA tenderness. Laboratory Laboratory Tests Test 03/12/16 06:10 B-Type Natriuretic Peptide 18 PG/ML Assessment and Plan Problem List: (1) CKD (chronic kidney disease) (2) Diastolic CHF (3) CAD (coronary artery disease) (4) [id number] kidney injury (5) Hypertension (6) Acute on chronic renal insufficiency (7) Proteinuria (8) Monoclonal gammopathy Assessment and Plan 1.) WCT - symptomatic with near syncope, f/u rec Dr Mcdowell , continue coreg 25 mg bid, clinically improving 2.) CAD - increase lipitor to 80 qhs, norvasc, on aspirin 81 mg qd, no ischemia with mild lv systolic dysfunction on nst 3.) ? aortic dissection seen on 2d echo, no dissection on chest mra 4.) dyspnea - check bnp Problem Qualifiers (1) Hypertension: Qualified Code: I10 - Essential hypertension Keegan Rodriguez MD Mar 12, 2016 18:27
[2016-03-12] MEDS: TAMSULOSIN HCL 0.4 MG CAP PO SCH (20:21)
[2016-03-12] MEDS: ATORVASTATIN 80 MG TAB PO SCH (20:21)
[2016-03-13] VITALS (7 sets, daily range): BP systolic 110–150; BP diastolic 59–78; PULSE 65–83; RESP 16–20; TEMP 97.9–98.4; O2SAT 95–98
[2016-03-13] MEDS: hydrALAZINE HCL 100 MG TAB PO SCH (05:55)
[2016-03-13] MEDS: PANTOPRAZOLE SOD 40 MG DELAYED RELEASE TAB PO SCH (05:55)
[2016-03-13 07:55] LABS: AUTOMATED NEUTROPHIL # 5.9 TH/MM3 (1.8-7.7); BASOPHIL # 0.1 TH/MM3 (0-0.2); BASOPHIL % 0.5 % (0.0-2.0); EOSINOPHIL # 0.4 TH/MM3 (0-0.4); EOSINOPHIL % 4.4 % (0.0-4.0); HEMATOCRIT 30.3 % (39.0-51.0); HEMO FLAGS DIFF FINAL; LYMPH % 28.6 % (9.0-44.0); LYMPHOCYTE # 2.8 TH/MM3 (1.0-4.8); MEAN CELL VOLUME 96.4 FL (80.0-100.0); MEAN CORPUSCULAR HEMOGLOBIN 33.4 PG (27.0-34.0); MEAN CORPUSCULAR HGB CONC 34.7 % (32.0-36.0); MONO % 7.1 % (0.0-8.0); NEUT % 59.4 % (16.0-70.0); PLATELET COUNT 419 TH/MM3 (150-450); RED BLOOD COUNT 3.14 MIL/MM3 (4.50-5.90); RED CELL DISTRIBUTION WIDTH 13.5 % (11.6-17.2); WHITE BLOOD COUNT 9.9 TH/MM3 (4.0-11.0)
[2016-03-13 08:12] LABS: BICARBONATE 26.4 MEQ/L (21.0-32.0); POTASSIUM 5.3 MEQ/L (3.5-5.1)
--- NOTE | 2016-03-13 08:35 | PD.CARD.PN ---
Subjective Subjective Remarks alert in nad Objective Vital Signs / I&O Vital Signs Date Time Temp Pulse Resp B/P Pulse Ox O2 Delivery O2 Flow Rate FiO2 03/13/16 04:00 98.0 68 18 122/63 97 03/13/16 00:00 97.9 65 18 110/59 97 03/12/16 20:10 Room Air 03/12/16 20:10 71 03/12/16 20:00 98.0 67 18 123/62 100 03/12/16 16:00 98.3 69 20 126/60 94 03/12/16 12:00 98.3 66 20 107/56 97 I/O 03/12/16 03/12/16 03/12/16 03/13/16 03/13/16 03/13/16 07:00 15:00 23:00 07:00 15:00 23:00 Intake Total 600 ml 320 ml 320 ml Balance 600 ml 320 ml 320 ml Intake Oral 600 ml 320 ml 320 ml # Voids 4 2 2 # Bowel Movements 1 Physical Exam GENERAL: SKIN: Warm and dry. HEAD: Normocephalic. EYES: No scleral icterus. No injection or drainage. NECK: Supple, trachea midline. No JVD or lymphadenopathy. CARDIOVASCULAR: Regular rate and rhythm without murmurs, gallops, or rubs. RESPIRATORY: Breath sounds equal bilaterally. No accessory muscle use. GASTROINTESTINAL: Abdomen soft, non-tender, nondistended. MUSCULOSKELETAL: No cyanosis, or edema. BACK: Nontender without obvious deformity. No CVA tenderness. Laboratory Laboratory Tests Test 03/13/16 07:11 White Blood Count 9.9 TH/MM3 Red Blood Count 3.14 MIL/MM3 Hemoglobin 10.5 GM/DL Hematocrit 30.3 % Mean Corpuscular Volume 96.4 FL Mean Corpuscular Hemoglobin 33.4 PG Mean Corpuscular Hemoglobin 34.7 % Concent Red Cell Distribution Width 13.5 % Platelet Count 419 TH/MM3 Mean Platelet Volume 8.3 FL Neutrophils (%) (Auto) 59.4 % Lymphocytes (%) (Auto) 28.6 % Monocytes (%) (Auto) 7.1 % Eosinophils (%) (Auto) 4.4 % Basophils (%) (Auto) 0.5 % Neutrophils # (Auto) 5.9 TH/MM3 Lymphocytes # (Auto) 2.8 TH/MM3 Monocytes # (Auto) 0.7 TH/MM3 Eosinophils # (Auto) 0.4 TH/MM3 Basophils # (Auto) 0.1 TH/MM3 CBC Comment DIFF FINAL Differential Comment Sodium Level 138 MEQ/L Potassium Level 5.3 MEQ/L Chloride Level 105 MEQ/L Carbon Dioxide Level 26.4 MEQ/L Anion Gap 7 MEQ/L Blood Urea Nitrogen 18 MG/DL Creatinine 2.16 MG/DL Estimat Glomerular Filtration 39 ML/MIN Rate Random Glucose 87 MG/DL Calcium Level 8.0 MG/DL Assessment and Plan Problem List: (1) CKD (chronic kidney disease) (2) Diastolic CHF (3) CAD (coronary artery disease) (4) [id number]-[id number] kidney injury (5) Hypertension (6) Acute on chronic renal insufficiency (7) Proteinuria (8) Monoclonal gammopathy Assessment and Plan 1.) WCT - symptomatic with near syncope, f/u rec Dr Mcdowell , continue coreg 25 mg bid, clinically improving 2.) CAD - increase lipitor to 80 qhs, norvasc, on aspirin 81 mg qd, no ischemia with mild lv systolic dysfunction on nst 3.) ? 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
[2016-03-13] MEDS: DOCUSATE SODIUM 50 MG/SENNA 8.6 MG TAB PO SCH ×2 (08:52→20:17)
[2016-03-13] MEDS: GABAPENTIN 300 MG CAP PO SCH ×2 (08:52→20:17)
[2016-03-13] MEDS: CARVEDILOL 12.5 MG TAB PO SCH ×2 (08:52→20:16)
[2016-03-13] MEDS: ASPIRIN EC 81 MG TABEC PO SCH (08:52)
[2016-03-13] MEDS: DULoxetine HCl DR 20 MG CAP PO SCH ×2 (08:52→20:16)
[2016-03-13] MEDS: CHOLECALCIFEROL (VIT D3) 1000 UNIT TAB PO SCH (08:52)
[2016-03-13] MEDS: CLOPIDOGREL 75 MG TAB PO SCH (08:52)
--- NOTE | 2016-03-13 10:14 | HHI.FPPN ---
Subjective Remarks No acute events overnight. BP is slightly decreased this morning. Patient otherwise is at his baseline. Continues to have this generalized chronic pain and dizziness but no acute changes. Objective Vitals Vital Signs Date Time Temp Pulse Resp B/P Pulse Ox O2 Delivery O2 Flow Rate FiO2 03/13/16 08:00 98.1 74 16 150/78 97 03/13/16 04:00 98.0 68 18 122/63 97 03/13/16 00:00 97.9 65 18 110/59 97 03/12/16 20:10 Room Air 03/12/16 20:10 71 03/12/16 20:00 98.0 67 18 123/62 100 03/12/16 16:00 98.3 69 20 126/60 94 03/12/16 12:00 98.3 66 20 107/56 97 I/O 03/12/16 03/12/16 03/12/16 03/13/16 03/13/16 03/13/16 07:00 15:00 23:00 07:00 15:00 23:00 Intake Total 600 ml 320 ml 320 ml Balance 600 ml 320 ml 320 ml Intake Oral 600 ml 320 ml 320 ml # Voids 4 2 2 # Bowel Movements 1 Result Diagram: 03/13/16 0711 03/13/16 0711 Objective Remarks GENERAL: Well-developed well-nourished male lying in bed appearing in no acute distress. CARDIOVASCULAR: Normal rate, regular rhythm. 2/6 systolic ejection murmur at right upper sternal border and apex of heart. RESPIRATORY: CTAB. No crackles or wheezes. Normal respiratory rate MUSCULOSKELETAL: Extremities without edema. No calf tenderness. NEUROLOGICAL: Awake and alert. Continues to have a depressed mood. A/P Assessment and Plan 56-year-old male with history of significant coronary artery disease and uncontrolled hypertension presenting with: Discharge Planning Timeline unknown at this point. Depends upon recommendations from nephrology in regards to biopsy results. Cardiac-temple patient is clear. wdw Dr. Posadas Problem List: (1) Phhjt-wu-ownlzef kidney injury Status: Acute Plan: Creatinine 2.50 on admission, baseline around 1.24 back in 10/2015. Cr remaining ~2.0 -Renal U/S showing early chronic changes and distended bladder + enlarged prostate -Hematology consulted to rule-out myeloma/amyloid due to monoclonal protein elevation Labs: * 24 h urine showing nephrotic range proteinuria (> 10,000) * C3/C4, Ig panel, Anti-Proteinase 3, myeloperoxidase, Hepatitis, HIV, urine monoclonal protein unremarkable * Free [place] Light and Free Lambda light chains- elevated (107.01/100.84 respectively) Nephrology consulted, appreciate their recommendations: Will attempt to reach Nephrology for recommendations as final path report is back. 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 Cardiology consult at that time attributed elevated troponin due to mild renal insufficiency and stated chest pain was likely due to degenerative arthritis of the neck with cervical radiculopathy. -Patient subsequently reported dizziness/lightheadedness 03/06 that was associated with brief ventricular arrhythmia on telemetry * No further incidences -Continues to endorse neck pain that he describes as chest pain * added Cymbalta to help with radicular pain -No evidence of CHF exacerbation as BNP was WNL Cardiology consulted, appreciate their recommendations * Electrophysiology consultation per cardiology * Nuclear stress test negative * OP follow up in 3wks Imaging: * Echo 03/01/16 showing EF 55-60% and moderate aortic root dilation, no wall motion abnormality. * MRA chest normal; no aortic dissection Medications: * Plavix and aspirin resumed * Amlodipine 10mg daily * Lipitor 80mg * Coreg 25mg BID * Hydralazine decreased to the following regimen 100mg in AM, 75 at 1400 and 2200 * Oxycodone, Percocet, and Tylenol for pain * Cymbalta 20mg BID (3) Monoclonal gammopathy present on serum protein electrophoresis Status: Acute Plan: Free [place] and Free Lambda light chains- elevated (107.01/100.84 respectively) No light chain in the urine -Continue renal diagnostic work-up per Nephrology -Hematology consulted: appreciate recommendations -BM negative for plasma cell dyscrasia -Skeletal survey -negative, but RUQ coin lesion present. Suspect this is due to an actual coin in pocket as repeat imaging did not show lesion again -lateral abdomen x-ray normal -Follow up at [facility] when discharged. -Signed off 03/11/16 (4) Hypertension Status: Chronic Plan: BP improved but is now on the low side. Decreased Hydralazine as stated above. -Clonidine 0.1 mg q6h prn blood pressure greater than 180/100 (5) Nutrition, metabolism, and development symptoms Status: Acute Plan: Fluids: None at this time Electrolytes: Monitor and replace as needed Nutrition: Heart healthy GI PPX: Protonix DVT PPX: Lovenox today. Problem Qualifiers (1) Hypertension: Qualified Code: I10 - Essential hypertension Daina Harper MD R2 Mar 13, 2016 10:14
[2016-03-13] MEDS: hydrALAZINE HCL 25 MG TAB PO SCH ×2 (13:34→20:19)
[2016-03-13] MEDS: ENOXAPARIN SODIUM 40 MG/0.4 ML SYRINGE SQ SCH (13:34)
[2016-03-13] MEDS: ATORVASTATIN 80 MG TAB PO SCH (20:17)
[2016-03-13] MEDS: TAMSULOSIN HCL 0.4 MG CAP PO SCH (20:17)
[2016-03-14] VITALS (8 sets, daily range): BP systolic 115–145; BP diastolic 59–73; PULSE 69–75; RESP 17–20; TEMP 98.3–98.6; O2SAT 96–97
[2016-03-14] MEDS: PANTOPRAZOLE SOD 40 MG DELAYED RELEASE TAB PO SCH (05:10)
[2016-03-14] MEDS: hydrALAZINE HCL 100 MG TAB PO SCH (05:10)
--- NOTE | 2016-03-14 08:11 | HHI.FPPN ---
Subjective Remarks No events overnight. BPs ranging 110s-150/59s-70s over past 24 hours. Afebrile. Patient reports brief episodes of dizziness, primarily when sitting up too quickly. Reports adequate hydration and tolerating diet well. Reports similar cervical radicular symptoms as previous mostly in his right shoulder area. Denies chest pain, shortness of breath, pain or swelling of either lower extremity. (Danny Singletary MD R1) Objective Vitals Vital Signs Date Time Temp Pulse Resp B/P Pulse Ox O2 Delivery O2 Flow Rate FiO2 03/14/16 04:00 98.3 71 17 117/68 96 03/14/16 00:00 98.4 70 18 132/59 96 03/13/16 20:00 98.3 73 19 118/59 98 03/13/16 20:00 Room Air 21 03/13/16 20:00 80 03/13/16 16:00 98.1 83 16 121/69 96 03/13/16 12:00 98.4 69 20 118/74 95 03/13/16 09:01 Room Air 03/13/16 09:01 68 I/O 03/13/16 03/13/16 03/13/16 03/14/16 03/14/16 03/14/16 07:00 15:00 23:00 07:00 15:00 23:00 Intake Total 320 ml 480 ml 120 ml 320 ml Output Total 0 ml Balance 320 ml 480 ml 120 ml 320 ml Intake Oral 320 ml 480 ml 120 ml 320 ml Output Urine Total 0 ml # Voids 2 2 1 3 # Bowel Movements 1 0 (Danny Singletary MD R1) Result Diagram: 03/13/16 0711 03/13/16 0711 Objective Remarks GENERAL: Well-developed well-nourished male lying in bed appearing in no acute distress. CARDIOVASCULAR: Normal rate, regular rhythm. 2/6 systolic ejection murmur at right upper sternal border and apex of heart. RESPIRATORY: CTAB. No crackles or wheezes. Normal respiratory rate MUSCULOSKELETAL: Extremities without edema. No calf tenderness. NEUROLOGICAL: Awake and alert. Continues to have a depressed mood. (Danny Singletary MD R1) A/P Assessment and Plan 56-year-old male with history of significant coronary artery disease and uncontrolled hypertension presenting with: Discharge Planning Anticipate discharge tomorrow following nephrology recommendations. Patient should have follow up with his PCP Dr. Quintero, as well as cardiology and nephrology. (Danny Singletary MD R1) Assessment and Plan Attending note: Patient was seen and examined with the resident on the morning of 03/14/16. Case was reviewed and discussed with the resident area did agree with plan of care as discussed with me and documented in the resident note. ( Yan Posadas MD) Problem List: (1) Shsup-vl-[id number] kidney injury Status: Acute Plan: Creatinine 2.50 on admission, baseline around 1.24 back in 10/2015. 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 Cardiology consult at that time attributed elevated troponin due to mild renal insufficiency and stated chest pain was likely due to degenerative arthritis of the neck with cervical radiculopathy. -Patient subsequently reported dizziness/lightheadedness 03/06 that was associated with brief ventricular arrhythmia on telemetry * No further incidences -Continues to endorse neck pain that he describes as chest pain * added Cymbalta to help with radicular pain -No evidence of CHF exacerbation as BNP was WNL Cardiology consulted, appreciate their recommendations * Electrophysiology consultation per cardiology * Nuclear stress test negative * OP follow up in 3 weeks Imaging: * Echo 03/01/16 showing EF 55-60% and moderate aortic root dilation, no wall motion abnormality. * MRA chest normal; no aortic dissection Medications: * Plavix and aspirin resumed * Amlodipine 10mg daily * Lipitor 80mg * Coreg 25mg BID * Hydralazine 100mg in AM, 75mg at 14:00 and 22:00 * Oxycodone, Percocet, and Tylenol for pain * Cymbalta 20mg BID (3) Monoclonal gammopathy present on serum protein electrophoresis Status: Acute Plan: Free [place] and Free Lambda light chains- elevated (107.01/100.84 respectively) No light chain in the urine -Continue renal diagnostic work-up per Nephrology -Hematology consulted: appreciate recommendations -BM negative for plasma cell dyscrasia -Skeletal survey -negative, but RUQ coin lesion present. Suspect this is due to an actual coin in pocket as repeat imaging did not show lesion again -lateral abdomen x-ray normal -Follow up at [facility] when discharged. -Signed off 03/11/16 (4) Hypertension Status: Chronic Plan: BP regimen as above, continue to monitor vitals q4h -Clonidine 0.1 mg q6h prn blood pressure greater than 180/100 (5) Nutrition, metabolism, and development symptoms Status: Acute Plan: Fluids: None at this time Electrolytes: Monitor and replace as needed Nutrition: Heart healthy GI PPX: Protonix DVT PPX: Lovenox sdw Dr. Posadas (Danny Singletary MD R1) Problem Qualifiers (1) Hypertension: Qualified Code: I10 - Essential hypertension Danny Singletary MD R1 Mar 14, 2016 08:11 Yan Posadas MD Mar 15, 2016 19:26
[2016-03-14 08:14] LABS: BICARBONATE 26.2 MEQ/L (21.0-32.0); POTASSIUM 5.3 MEQ/L (3.5-5.1)
--- NOTE | 2016-03-14 08:58 | PD.CARD.PN ---
Subjective Subjective Remarks alert in nad Objective Vital Signs / I&O Vital Signs Date Time Temp Pulse Resp B/P Pulse Ox O2 Delivery O2 Flow Rate FiO2 03/14/16 04:00 98.3 71 17 117/68 96 03/14/16 00:00 98.4 70 18 132/59 96 03/13/16 20:00 98.3 73 19 118/59 98 03/13/16 20:00 Room Air 21 03/13/16 20:00 80 03/13/16 16:00 98.1 83 16 121/69 96 03/13/16 12:00 98.4 69 20 118/74 95 03/13/16 09:01 Room Air 03/13/16 09:01 68 I/O 03/13/16 03/13/16 03/13/16 03/14/16 03/14/16 03/14/16 07:00 15:00 23:00 07:00 15:00 23:00 Intake Total 320 ml 480 ml 120 ml 320 ml Output Total 0 ml Balance 320 ml 480 ml 120 ml 320 ml Intake Oral 320 ml 480 ml 120 ml 320 ml Output Urine Total 0 ml # Voids 2 2 1 3 # Bowel Movements 1 0 Physical Exam GENERAL: SKIN: Warm and dry. HEAD: Normocephalic. EYES: No scleral icterus. No injection or drainage. NECK: Supple, trachea midline. No JVD or lymphadenopathy. CARDIOVASCULAR: Regular rate and rhythm without murmurs, gallops, or rubs. RESPIRATORY: Breath sounds equal bilaterally. No accessory muscle use. GASTROINTESTINAL: Abdomen soft, non-tender, nondistended. MUSCULOSKELETAL: No cyanosis, or edema. BACK: Nontender without obvious deformity. No CVA tenderness. Laboratory Laboratory Tests Test 03/14/16 06:16 Sodium Level 138 MEQ/L Potassium Level 5.3 MEQ/L Chloride Level 105 MEQ/L Carbon Dioxide Level 26.2 MEQ/L Anion Gap 7 MEQ/L Blood Urea Nitrogen 21 MG/DL Creatinine 2.25 MG/DL Estimat Glomerular Filtration 37 ML/MIN Rate Random Glucose 99 MG/DL Calcium Level 7.9 MG/DL Assessment and Plan Problem List: (1) CKD (chronic kidney disease) (2) Diastolic CHF (3) CAD (coronary artery disease) (4) Ddlxj-[id number]-[id number] kidney injury (5) Hypertension (6) Acute on chronic renal insufficiency (7) Proteinuria (8) Monoclonal gammopathy Assessment and Plan 1.) WCT - symptomatic with near syncope, f/u rec Dr Mcdowell , continue coreg 25 mg bid, clinically improving 2.) CAD - increase lipitor to 80 qhs, norvasc, on aspirin 81 mg qd, no ischemia with mild lv systolic dysfunction on nst 3.) ? aortic dissection seen on 2d echo, no dissection on chest mra 4.) dyspnea - bnp=18, suspect is noncardiac in origin 5.) Nodular glomeruloschlerosis - f/u rec Dr Marie Problem Qualifiers (1) Hypertension: Qualified Code: I10 - Essential hypertension Keegan Rodriguez MD Mar 14, 2016 08:58
[2016-03-14] MEDS: CHOLECALCIFEROL (VIT D3) 1000 UNIT TAB PO SCH (09:13)
[2016-03-14] MEDS: CLOPIDOGREL 75 MG TAB PO SCH (09:13)
[2016-03-14] MEDS: GABAPENTIN 300 MG CAP PO SCH ×2 (09:13→21:03)
[2016-03-14] MEDS: CARVEDILOL 12.5 MG TAB PO SCH ×2 (09:13→21:03)
[2016-03-14] MEDS: DOCUSATE SODIUM 50 MG/SENNA 8.6 MG TAB PO SCH ×2 (09:13→21:04)
[2016-03-14] MEDS: DULoxetine HCl DR 20 MG CAP PO SCH ×2 (09:13→21:03)
[2016-03-14] MEDS: ASPIRIN EC 81 MG TABEC PO SCH (09:14)
[2016-03-14] MEDS: ENOXAPARIN SODIUM 40 MG/0.4 ML SYRINGE SQ SCH (13:15)
[2016-03-14] MEDS: hydrALAZINE HCL 25 MG TAB PO SCH ×2 (13:15→21:04)
[2016-03-14] MEDS: TAMSULOSIN HCL 0.4 MG CAP PO SCH (21:03)
[2016-03-14] MEDS: ATORVASTATIN 80 MG TAB PO SCH (21:04)
[2016-03-14] MEDS: ACETAMINOPHEN 500 MG CPLT PO PRN (21:09)
[2016-03-15] VITALS: BP 118/64; PULSE 65; RESP 18; TEMP 97.6; O2SAT 98
[2016-03-15 03:00] VITALS: BP 115/58; PULSE 75; RESP 18; TEMP 97.8; O2SAT 100
[2016-03-15] MEDS: PANTOPRAZOLE SOD 40 MG DELAYED RELEASE TAB PO SCH (05:49)
[2016-03-15] MEDS: hydrALAZINE HCL 100 MG TAB PO SCH (05:49)
[2016-03-15 07:31] LABS: POTASSIUM 5.1 MEQ/L (3.5-5.1)
[2016-03-15 07:59] VITALS: BP 118/63; PULSE 74; RESP 18; TEMP 98.4; O2SAT 98
[2016-03-15 08:03] VITALS: PULSE 76
--- NOTE | 2016-03-15 08:21 | HHI.FPPN ---
Subjective Remarks Afebrile, vitals are stable. Patient states he was told by nursing staff he may not have been urinating as much. He states his issue with urinating is still symptoms of BPH, he endorses dribbling. Denies chest pain or shortness of breath. Objective Vitals Vital Signs Date Time Temp Pulse Resp B/P Pulse Ox O2 Delivery O2 Flow Rate FiO2 03/15/16 07:59 98.4 74 18 118/63 98 03/15/16 03:00 97.8 75 18 115/58 100 03/15/16 00:00 97.6 65 18 118/64 98 03/14/16 21:00 Room Air 03/14/16 20:30 98.6 71 18 130/73 97 03/14/16 19:52 72 03/14/16 16:00 98.5 74 20 139/65 97 03/14/16 12:00 98.4 69 20 115/59 96 I/O 03/14/16 03/14/16 03/14/16 03/15/16 03/15/16 03/15/16 07:00 15:00 23:00 07:00 15:00 23:00 Intake Total 320 ml 480 ml 0 ml Output Total 0 ml 300 ml Balance 320 ml 480 ml 0 ml -300 ml Intake Oral 320 ml 480 ml IV Total 0 ml Output Urine Total 0 ml 300 ml Bladder Scan Volume Amount 152 ml 73 ml # Voids 3 1 # Bowel Movements 1 Result Diagram: 03/13/16 0711 03/15/16 0611 Objective Remarks GENERAL: Well-developed well-nourished male lying in bed appearing in no acute distress. CARDIOVASCULAR: Normal rate, regular rhythm. 2/6 systolic ejection murmur at right upper sternal border and apex of heart. RESPIRATORY: CTAB. No crackles or wheezes. Normal respiratory rate. MUSCULOSKELETAL: Extremities without edema. No calf tenderness. NEUROLOGICAL: Awake and alert. Continues to have a depressed mood. A/P Assessment and Plan 56-year-old male with history of significant coronary artery disease and uncontrolled hypertension presenting with: Discharge Planning Anticipate discharge today or within 1-2 days following nephrology recommendations. Patient should have follow up with his PCP Dr. Quintero, as well as cardiology and nephrology. Problem List: (1) Ydhkh-bl-flbxifn kidney injury Status: Acute Plan: Creatinine 2.50 on admission, baseline around 1.24 back in 10/2015. 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 Cardiology consult at that time attributed elevated troponin due to mild renal insufficiency and stated chest pain was likely due to degenerative arthritis of the neck with cervical radiculopathy. -Patient subsequently reported dizziness/lightheadedness / that was associated with brief ventricular arrhythmia on telemetry * No further incidences -Continues to endorse neck pain that he describes as chest pain * added Cymbalta to help with radicular pain -No evidence of CHF exacerbation as BNP was WNL Cardiology consulted, appreciate their recommendations * Electrophysiology consultation per cardiology * Nuclear stress test negative * OP follow up in 3 weeks Imaging: * Echo 03/01/16 showing EF 55-60% and moderate aortic root dilation, no wall motion abnormality. * MRA chest normal; no aortic dissection Medications: * Plavix and aspirin resumed * Amlodipine 10mg daily * Lipitor 80mg * Coreg 25mg BID * Hydralazine 100mg in AM, 75mg at 14:00 and 22:00 * Oxycodone, Percocet, and Tylenol for pain * Cymbalta 20mg BID (3) Monoclonal gammopathy present on serum protein electrophoresis Status: Acute Plan: Free [place] Light and Free Lambda light chains- elevated (107.01/100.84 respectively) No light chain in the urine -Continue renal diagnostic work-up per Nephrology -Hematology consulted: appreciate recommendations -BM negative for plasma cell dyscrasia -Skeletal survey -negative, but RUQ coin lesion present. Suspect this is due to an actual coin in pocket as repeat imaging did not show lesion again -lateral abdomen x-ray normal -Follow up at [facility] when discharged. -Signed off 03/11/16 (4) Hypertension Status: Chronic Plan: BP regimen as above, continue to monitor vitals q4h -Clonidine 0.1 mg q6h prn blood pressure greater than 180/100 (5) Nutrition, metabolism, and development symptoms Status: Acute Plan: Fluids: None at this time Electrolytes: Monitor and replace as needed Nutrition: Heart healthy GI PPX: Protonix DVT PPX: Lovenox gigiw Dr. Harper wdw Dr. Posadas Problem Qualifiers (1) Hypertension: Qualified Code: I10 - Essential hypertension Danny Singletary MD R1 Mar 15, 2016 08:21
[2016-03-15] MEDS: DOCUSATE SODIUM 50 MG/SENNA 8.6 MG TAB PO SCH (09:02)
[2016-03-15] MEDS: CLOPIDOGREL 75 MG TAB PO SCH (09:02)
[2016-03-15] MEDS: CHOLECALCIFEROL (VIT D3) 1000 UNIT TAB PO SCH (09:02)
[2016-03-15] MEDS: CARVEDILOL 12.5 MG TAB PO SCH (09:02)
[2016-03-15] MEDS: DULoxetine HCl DR 20 MG CAP PO SCH (09:02)
[2016-03-15] MEDS: GABAPENTIN 300 MG CAP PO SCH (09:03)
[2016-03-15] MEDS: ASPIRIN EC 81 MG TABEC PO SCH (09:03)
--- NOTE | 2016-03-15 10:39 | HHI.NPPN ---
Subjective History of Present Illness The patient is a 56 yo AA male who presented to this facility on 02/27 with complaints of chest pain radiating down into arm. He also is complaining of LE edema that started approximately in August, but has recently been worsening. There is mention in his chart about hypertensive nephrosclerosis, but the patient is not aware of any history of renal decline. PMHx includes HTN that was only formally dx within the past 2 years (but question of longer diagnosis) , CAD s/p cardiac cath in September 2015, HLD, OA. Of note, he was complaining of dysuria and urinary hesitancy for the past several weeks. US showed prostatic enlargement. Denies any new medications recently. Also denies any NSAID use. Admitting SCr was 2.50 that improved to 2.24 at time of consult 11/22/15 SCr was 1.24, but otherwise baseline appears to be between 1.7-1.9 since Jan 2015 Prior SCr levels were in 0.8-0.9 range as per previous records. Interval History Feels like his UOP is not adequate. Having some hesitancy and dribbling. ( Kelley Lora) Review of Systems General Constitutional: Fatigue (Kelley Lora) Objective Data Data 03/14/16 03/15/16 19:00 07:00 Intake Total 480 ml Output Total 300 ml Balance 480 ml -300 ml Intake Oral 480 ml IV Total 0 ml Output Urine Total 300 ml Bladder Scan Volume Amount 152 ml 73 ml # Voids 1 # Bowel Movements 1 Vital Signs Date Time Temp Pulse Resp B/P Pulse Ox O2 Delivery O2 Flow Rate FiO2 03/15/16 08:03 Room Air 03/15/16 08:03 76 03/15/16 07:59 98.4 74 18 118/63 98 03/15/16 03:00 97.8 75 18 115/58 100 03/15/16 00:00 97.6 65 18 118/64 98 03/14/16 21:00 Room Air 03/14/16 20:30 98.6 71 18 130/73 97 03/14/16 19:52 72 03/14/16 16:00 98.5 74 20 139/65 97 03/14/16 12:00 98.4 69 20 115/59 96 (Kelley Lora) -: 03/13/16 0711 03/15/16 0611 Medication Review Current Medications Medications (Trade) Dose Ordered Sig/Ramakrishna Route Start Time Stop Time Status Last Admin (NS Flush) 2 ml UNSCH PRN IVF 02/28/16 16:00 03/12/16 10:17 (Norvasc) 10 mg DAILY PO 02/28/16 18:15 03/15/16 09:03 (Plavix) 75 mg DAILY PO 02/28/16 18:15 03/15/16 09:02 (Lasix) 40 mg DAILY PO 02/29/16 09:00 Hold (Protonix) 40 mg DAILY@06 PO 02/28/16 18:15 03/15/16 05:49 (KCl) 20 meq DAILY PO 02/29/16 09:00 Hold 03/08/16 08:41 (Roxicodone) 10 mg Q4H PRN PO 02/28/16 19:00 03/15/16 09:04 (Catapres) 0.1 mg Q6H PRN PO 02/28/16 21:30 03/03/16 18:26 (Kasey-Colace) 2 tab BID PO 03/01/16 21:00 03/15/16 09:02 (Neurontin) 300 mg BID PO 03/02/16 21:00 03/15/16 09:03 (Vitamin D3) 2,000 units DAILY PO 03/03/16 19:00 03/15/16 09:02 (Coreg) 25 mg BID PO 03/05/16 09:00 03/15/16 09:02 (Tylenol) 500 mg Q6H PRN PO 03/06/16 17:45 03/14/16 21:09 (Lipitor) 80 mg HS PO 03/08/16 21:00 03/14/16 21:04 (Percocet 5-325 Mg) 1 tab Q4H PRN PO 03/08/16 16:00 (Cymbalta Dr) 20 mg BID PO 03/10/16 21:00 03/15/16 09:02 (Lovenox Inj) 40 mg Q24H SQ 03/11/16 13:00 03/14/16 13:15 (Ecotrin Ec) 81 mg DAILY PO 03/12/16 09:00 03/15/16 09:03 (Apresoline) 100 mg DAILY@06 PO 03/14/16 06:00 03/15/16 05:49 (Apresoline) 75 mg DAILY@14 PO 03/13/16 14:00 03/14/16 13:15 (Apresoline) 75 mg DAILY@22 PO 03/13/16 22:00 03/14/16 21:04 (Flomax) 0.6 mg HS PO 03/15/16 21:00 UNV (Kelley Lora) Physical Exam General Appearance: Well Developed, Well Nourished, No Acute Distress, Comfortable ( Kelley Lora) Pulmonary Resp Exam: Clear Bilaterally, Breath Sounds Equal (Kelley Lora) Cardiology CV Exam: Regular, Normal Sinus Rhythm (Kelley Lora) Gastrointestinal/Abdomen GI Exam: Soft, Non-Tender (Kelley Lora) Musculoskeletal MS Exam: Joints Intact (Kelley Lora) Integumentary Skin Exam: Clear, Warm, Dry (Kelley Lora) Extremeties Extremities Exam: No Edema (Kelley Lora) Neurologic Neuro Exam: Alert, Awake, Oriented (Kelley Lora) Psychiatric Psych Exam: Appropriate Responses (Kelley Lora) Assessment/Plan Discussed Condition With: Patient Problem List: (1) Acute on chronic renal insufficiency Plan: Patient's creatinine level appears to have reached baseline level. 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 I do not believe that the patient has an acute thrombotic microangiopathy as his platelet count is normal. LDH level normal. Peripheral blood smear pending. I need the full report to determine whether or not the patient had evidence of complement deposition or significant immunoglobulin deposition on the biopsy. An uncommon cause of membranoproliferative glomerulonephritis would be monoclonal gammopathy of unknown significance which the patient has been diagnosed with however they would have to be evidence of significant immunoglobulin deposition on the kidney biopsy for this to be a consideration. If this is the case we will recall hematology. Another potential etiology would be illicit drug use however the patient indicated to me that he has not used illicit drugs in several years, i.e. cocaine or narcotics intravenously. Uncontrolled hypertension could also be associated with a thrombotic microangiopathy so this is also consideration. Regardless until I get the final report on his kidney biopsy in regard to the presence or absence of complement or metabolic deposition or absence of same I cannot give a definitive opinion as discussed with the patient. We'll order above-mentioned studies for completeness. Medications should be adjusted for the patient's renal decline. Avoid nephrotoxic medications including iodinated contrast dyes and NSAIDs. Avoid gadolinium when eGFR <30. (2) Hypertension Plan: Hydralazine was increased by primary today. Monitor and adjust to get to goal of BP of <140/90 (3) Proteinuria Plan: Nephrotic range with associated hypoalbuminemia. (4) Chest pain Plan: Mgmt as per primary/cardiology (5) Prostate enlargement Plan: Monitor I&Os. Would recommend urological consult as outpatient. Continue on Flomax. (Kelley Lora) Plan Physical examination, evaluation and assessment reviewed and discussed with my PA. I was fully involved in the evaluation and plan of care this patient. Doctor Frank. (Radha Marie MD) Problem Qualifiers (1) Hypertension: Qualified Code: I10 - Essential hypertension (2) Chest pain: Qualified Code: R07.81 - Pleurodynia Kelley Lora Mar 15, 2016 10:39 Radha Marie MD Apr 06, 2016 11:38
[2016-03-15] MEDS ORDERED: ASPI81TA11 PO (11:25)
[2016-03-15] MEDS ORDERED: HYDR25TA35 PO (11:25)
[2016-03-15] MEDS ORDERED: VITA100018 PO (11:25)
[2016-03-15] MEDS ORDERED: NEUR300C PO (11:25)
[2016-03-15] MEDS ORDERED: CARV12.5 PO (11:25)
[2016-03-15] MEDS ORDERED: DULO20 PO (11:25)
[2016-03-15] MEDS ORDERED: OXYC-392 PO (11:25)
[2016-03-15] MEDS ORDERED: HYDR-3801 PO (11:25)
[2016-03-15] MEDS ORDERED: LIPI80TA PO (11:25)
[2016-03-15] MEDS ORDERED: TAMS5CAP PO (11:25)
[2016-03-15 11:49] VITALS: BP 118/62; PULSE 73; RESP 18; TEMP 99.1; O2SAT 97
--- NOTE | 2016-03-15 12:53 | HHI.DCPOC ---
Discharge Care Plan Diagnosis: (1) Jvplv-ov-cusroml kidney injury (2) Chest pain (3) Monoclonal gammopathy present on serum protein electrophoresis (4) Prostate enlargement Goals to Promote Your Health * To prevent worsening of your condition and complications * To maintain your health at the optimal level Directions to Meet Your Goals Take your medications as prescribed Follow your dietary instruction Follow activity as directed Keep your appointments as scheduled Take your immunizations and boosters as scheduled If your symptoms worsen call your PCP, if no PCP go to Urgent Care Center or Emergency Room Smoking is Dangerous to Your Health. Avoid second hand smoke Call the 24-hour hour crisis hotline for domestic abuse at Daina Harper MD R2 Mar 15, 2016 12:53
[2016-03-15] MEDS: ENOXAPARIN SODIUM 40 MG/0.4 ML SYRINGE SQ SCH (13:18)
--- NOTE | 2016-03-15 14:11 | PD.CARD.PN ---
Subjective Subjective Remarks alert in nad Objective Vital Signs / I&O Vital Signs Date Time Temp Pulse Resp B/P Pulse Ox O2 Delivery O2 Flow Rate FiO2 03/15/16 11:49 99.1 73 18 118/62 97 03/15/16 08:03 Room Air 03/15/16 08:03 76 03/15/16 07:59 98.4 74 18 118/63 98 03/15/16 03:00 97.8 75 18 115/58 100 03/15/16 00:00 97.6 65 18 118/64 98 03/14/16 21:00 Room Air 03/14/16 20:30 98.6 71 18 130/73 97 03/14/16 19:52 72 03/14/16 16:00 98.5 74 20 139/65 97 I/O 03/14/16 03/14/16 03/14/16 03/15/16 03/15/16 03/15/16 07:00 15:00 23:00 07:00 15:00 23:00 Intake Total 320 ml 480 ml 0 ml Output Total 0 ml 300 ml Balance 320 ml 480 ml 0 ml -300 ml Intake Oral 320 ml 480 ml IV Total 0 ml Output Urine Total 0 ml 300 ml Bladder Scan Volume Amount 152 ml 73 ml # Voids 3 1 # Bowel Movements 1 Physical Exam GENERAL: SKIN: Warm and dry. HEAD: Normocephalic. EYES: No scleral icterus. No injection or drainage. NECK: Supple, trachea midline. No JVD or lymphadenopathy. CARDIOVASCULAR: Regular rate and rhythm without murmurs, gallops, or rubs. RESPIRATORY: Breath sounds equal bilaterally. No accessory muscle use. GASTROINTESTINAL: Abdomen soft, non-tender, nondistended. MUSCULOSKELETAL: No cyanosis, or edema. BACK: Nontender without obvious deformity. No CVA tenderness. Laboratory Laboratory Tests Test 03/15/16 06:11 Blood Smear Pathologist Review Sodium Level 136 MEQ/L Potassium Level 5.1 MEQ/L Chloride Level 102 MEQ/L Carbon Dioxide Level 27.0 MEQ/L Anion Gap 7 MEQ/L Blood Urea Nitrogen 22 MG/DL Creatinine 2.26 MG/DL Estimat Glomerular Filtration 37 ML/MIN Rate Random Glucose 93 MG/DL Calcium Level 8.0 MG/DL Lactate Dehydrogenase 164 U/L Assessment and Plan Problem List: (1) CKD (chronic kidney disease) (2) Diastolic CHF (3) CAD (coronary artery disease) (4) Aactg-kr-urjdhtm kidney injury (5) Hypertension (6) Acute on chronic renal insufficiency (7) Proteinuria (8) Monoclonal gammopathy Assessment and Plan 1.) WCT - symptomatic with near syncope, f/u rec Dr Mcdowell , continue coreg 25 mg bid, clinically improving 2.) CAD - increase lipitor to 80 qhs, norvasc, on aspirin 81 mg qd, no ischemia with mild lv systolic dysfunction on nst 3.) ? aortic dissection seen on 2d echo, no dissection on chest mra 4.) dyspnea - bnp=18, suspect is noncardiac in origin 5.) Nodular glomeruloschlerosis - f/u rec Dr Marie Problem Qualifiers (1) Hypertension: Qualified Code: I10 - Essential hypertension Keegan Rodriguez MD Mar 15, 2016 14:11
[2016-03-15] MEDS: hydrALAZINE HCL 25 MG TAB PO SCH (14:54)
[2016-03-15] MEDS ORDERED: TAMSULOSIN HCL 0.4 MG CAP PO SCH (21:00)
--- NOTE | 2016-03-18 12:23 | HHI.DS ---
Discharge Summary Admission Date Feb 28, 2016 at 17:47 Discharge Date: Mar 15, 2016 Admitting Diagnosis Unstable Angina, NSTEMI (1) Ssmla-cb-znrysqw kidney injury Diagnosis: Principal Plan: Creatinine 2.50 on admission, baseline around 1.24 back in 10/2015. Cr remaining ~2.0 -Renal U/S showing early chronic changes and distended bladder + enlarged prostate -Hematology consulted to rule-out myeloma/amyloid due to monoclonal protein elevation Labs: * 24 h urine showing nephrotic range proteinuria (> 10,000) * C3/C4, Ig panel, Anti-Proteinase 3, myeloperoxidase, Hepatitis, HIV, urine monoclonal protein unremarkable * Free [place] Light and Free Lambda light chains- elevated (107.01/100.84 respectively) Nephrology consulted, appreciate their recommendations -Biopsy: Nodular glomerulosclerosis with membranoproliferative proliferative pattern -LDH normal at 164 -Ordered peripheral smear -Could be due to MGUS vs IV drug use vs HTN Medications: * Increased Tamsulosin to 0.6 mg po HS * Home KCL and lasix held (2) Cardiac disease Diagnosis: Principal Plan: On admission, patient with acute onset chest pain and shortness of breath in setting of elevated troponin and no ST segment changes on EKG. Cardiology consult at that time attributed elevated troponin due to mild renal insufficiency and stated chest pain was likely due to degenerative arthritis of the neck with cervical radiculopathy. -Patient subsequently reported dizziness/lightheadedness / that was associated with brief ventricular arrhythmia on telemetry * No further incidences -Continues to endorse neck pain that he describes as chest pain * added Cymbalta to help with radicular pain -No evidence of CHF exacerbation as BNP was WNL Cardiology consulted, appreciate their recommendations * Electrophysiology consultation per cardiology * Nuclear stress test negative * OP follow up in 3 weeks Imaging: * Echo 03/01/16 showing EF 55-60% and moderate aortic root dilation, no wall motion abnormality. * MRA chest normal; no aortic dissection Medications: * Plavix and aspirin resumed * Amlodipine 10mg daily * Lipitor 80mg * Coreg 25mg BID * Hydralazine 100mg in AM, 75mg at 14:00 and 22:00 * Oxycodone, Percocet, and Tylenol for pain * Cymbalta 20mg BID (3) Monoclonal gammopathy present on serum protein electrophoresis Diagnosis: Principal Plan: Free [place] Light and Free Lambda light chains- elevated (107.01/100.84 respectively) No light chain in the urine -Continue renal diagnostic work-up per Nephrology -Hematology consulted: appreciate recommendations -BM negative for plasma cell dyscrasia -Skeletal survey -negative, but RUQ coin lesion present. Suspect this is due to an actual coin in pocket as repeat imaging did not show lesion again -lateral abdomen x-ray normal -Follow up at [facility] when discharged. -Signed off 03/11/16 (4) Hypertension Diagnosis: Secondary Plan: BP regimen as above, continue to monitor vitals q4h -Clonidine 0.1 mg q6h prn blood pressure greater than 180/100 Consultants Nephrology, hematology oncology, cardiology Procedures Bone marrow biopsy showing normocellular bone marrow with trilineage maturation and lipogranulomata, moderate normochromic normocytic anemia Renal biopsy showing nodular glomerular sclerosis with membranoproliferative pattern, severe interstitial fibrosis, severe arteriosclerosis, severe arteriolar hyalinosis Brief History 56-year-old male with past medical history of known coronary artery disease with last heart catheter performed September/2015 showing 50-60% stenosis of the diagonal artery, hypertension in poor control, hyperlipidemia presenting with a 3 to four-day history of chest pain radiating to the right arm worsening on exertion and associated dyspnea. Pain occurred suddenly 3-4 days ago localized in the mid chest and is described as alternating between a pressure and a stabbing sensation. Occasionally the pain will radiate down the right arm. Regarding the right arm, 4 days ago he woke up with weakness of the right arm. This has been improving, but is not completely resolved. Associated with some numbness and the pain as previously mentioned. He denies any orthopnea. He has had some swelling of his face in the morning time as well as some swelling of his legs which has been an ongoing problem for several months, improved since he started taking Lasix. He has not had any palpitations, fevers or chills, syncope, pain radiating to back (apart from his chronic back pain). Additionally , he notes right upper quadrant abdominal pain occasionally associated with this chest pain/pressure. Finally, he notes some mild dysuria and difficulty initiating urine stream which has been ongoing for several weeks. Note: Patient is a relatively poor historian does not have a good understanding of his medical history CBC/BMP: 03/15/16 0611 Significant Findings Peripheral smear showing mild normochromic normocytic anemia, mild neutrophilia with reactive features, mild thrombocytosis Imaging Renal ultrasound showing both kidneys mildly echogenic suggesting early chronic parenchymal disease, no obstructive uropathy or other acute abnormality demonstrated, enlarged prostate Head CT remote right thalamic infarct Carotid artery ultrasound showing minimal bilateral bifurcation atherosclerotic plaque, no hemodynamically significant narrowing of either side Chest MRA normal Nuclear medicine myocardial perfusion scan showing mild left ventricular dysfunction, no ischemia PE at Discharge GENERAL: Well-developed well-nourished male lying in bed appearing in no acute distress. CARDIOVASCULAR: Normal rate, regular rhythm. 2/6 systolic ejection murmur at right upper sternal border and apex of heart. RESPIRATORY: CTAB. No crackles or wheezes. Normal respiratory rate. MUSCULOSKELETAL: Extremities without edema. No calf tenderness. NEUROLOGICAL: Awake and alert. Continues to have a depressed mood. Hospital Course Patient was admitted due to chest pain and troponin elevation with acute increase in creatinine to 2.2. Cardiology consulted, thought NSTEMI unlikely based on results of testing and Echocardiogram showing normal EF and no regional wall motion abnormality. Nephrology was consulted for acutely worsened renal function, initiated work-up which showed nephrotic-range proteinuria and increased kappa & lambda light chains in a 1:1 ratio. Renal biopsy results as above. Heme/onc consulted for light chains in urine, skeletal survey negative for obvious lytic lesions. Bone marrow biopsy was performed, results as above. Per nephrology, the patient's acute on chronic renal insufficiency and results of membranoproliferative glomerulonephritis found on his renal biopsy may be caused from MGUS however the picture is unclear given complement deposition or significant clavicle into position on the biopsy. This could also be due to uncontrolled hypertension. The patient's blood pressure was well-controlled during his hospitalization, medications were titrated to keep his blood pressure less than 120/80. The patient is stable for discharge and has been given extensive instructions and counseling to follow up with his primary care physician Dr. Quintero, Dr. Marie nephrology, hematology, cardiology, and urology given his BPH. Pt Condition on Discharge: Stable Discharge Disposition: Discharge Home Discharge Instructions DIET: Follow Instructions for: Heart Healthy Diet Activities you can perform: Regular-No Restrictions Follow up Referrals: Cardiology - 3 Weeks with Tonja Mcdowell MD Hematology - 1 Week with Eli Christianson MD Nephrology - 2 Weeks with Radha Marie MD PCP Follow-up Urology - 2 Weeks New Medications: Hydralazine (Hydralazine) 25 Mg Tab 75 MG PO DIRECTED Take with a meal. 75mg (3Tabs) at 2pm and at 10pm Blood Pressure Management #180 Ref 0 TAB Hydralazine (Hydralazine) 100 Mg Tab 100 MG PO DAILY@0600 Take with meals Blood Pressure Management #30 Ref 0 TAB Tamsulosin (Flomax) 0.4 Mg Cap 0.8 MG PO HS Manage Prostate Problems #[address] (Aspirin EC) 81 Mg Tabdr 81 MG PO DAILY #30 TAB Atorvastatin (Lipitor) 80 Mg Tab 80 MG PO HS #30 TAB Carvedilol (Coreg) 12.5 Mg Tab 25 MG PO BID #60 TAB Cholecalciferol (Vitamin D3) 1,000 Unit Tab 2000 UNITS PO DAILY #[address] (Cymbalta DR) 20 Mg Capdr 20 MG PO BID #60 CAP Gabapentin (Neurontin) 300 Mg Cap 300 MG PO BID #60 CAP Oxycodone (Oxycodone) 5 Mg Tab 10 MG PO Q4H PRN PAIN SCALE 6 TO 10 #15 TAB Continued Medications: Amlodipine (Amlodipine) 10 Mg Tab 10 MG PO DAILY Blood Pressure Management #90 Ref 2 TAB Clopidogrel (Plavix) 75 Mg Tab 75 MG PO DAILY Blood Clot Prevention #30 Ref 3 TAB Cyclobenzaprine (Flexeril) 10 Mg Tab 10 MG PO TID Muscle Spasm #90 Ref 3 TAB Pantoprazole (Protonix) 40 Mg Tab 40 MG PO DAILY Reflux #30 Ref 3 TAB Discontinued Medications: Atorvastatin (Atorvastatin) 40 Mg Tab 40 MG PO HS Cholesterol Management #30 Ref 3 TAB Baclofen (Baclofen) 10 Mg Tab 10 MG PO TID PRN MUSCLE SPASM Ref 0 TAB Carvedilol (Carvedilol) 6.25 Mg Tab 6.25 MG PO BID #60 Ref 0 TAB Furosemide (Furosemide) 40 Mg Tab 40 MG PO DAILY #30 Ref 3 TAB Gabapentin (Gabapentin) 300 Mg Cap 300 MG PO TID #90 Ref 0 CAP Hydralazine (Hydralazine) 25 Mg Tab 25 MG PO Q8HR takes 3 tabs every 8 hours Blood Pressure Management #90 Ref 3 TAB Potassium Chloride ER (Potassium Chloride ER) 20 Meq Tab 20 MEQ PO DAILY Electrolyte Replacement #30 Ref 3 TAB Danny Singletary MD R1 Mar 18, 2016 12:23
[2016-04-06] MEDS ORDERED: POTA-163 PO (09:22)
[2016-04-06] MEDS ORDERED: GABA300C5 PO (09:22)
[2016-04-06] MEDS ORDERED: CARV6.252 PO (09:22)
[2016-04-20] MEDS ORDERED: LOSA50TA PO (11:16)
[2016-04-20] MEDS ORDERED: FURO20TA PO (11:17)
[2016-05-10] MEDS ORDERED: DULO1CAP PO (10:19)
[2016-05-10] MEDS ORDERED: AMOX500C PO (10:19)
[2016-05-10] MEDS ORDERED: CLON.1 PO (10:33)
[2016-05-10] MEDS ORDERED: METH125I2 IM (10:33)
[2016-05-10] MEDS ORDERED: HYDR-3801 PO (10:38)
[2016-05-10] MEDS ORDERED: TAMS5CAP PO (10:39)
[2016-06-21] MEDS ORDERED: CALC600T10 PO (09:02)
[2016-06-21] MEDS ORDERED: MIRTA15 PO (09:02)
[2016-06-21] MEDS ORDERED: GABA600T PO ×2 (09:17→09:18)
[2016-06-21] MEDS ORDERED: METH125I2 IM (09:22)
[2016-07-08] MEDS ORDERED: HYDR-3801 PO (10:34)
[2016-07-12] MEDS ORDERED: LOSA100T PO (15:20)
[2016-07-16] MEDS ORDERED: METH125I2 IM (09:05)
[2016-07-22] MEDS ORDERED: CLOP75TA PO (09:18)
[2016-07-22] MEDS ORDERED: DULO1CAP PO (09:18)
[2016-07-22] MEDS ORDERED: METH125I2 IM ×2 (09:41→09:47)
[2016-07-22] MEDS ORDERED: AMLO10TA2 PO (09:44)
[2016-07-22] MEDS ORDERED: PRED5TAB PO (09:44)
== END 2016-03-15 17:11 | disposition home or self-care (01) | DRG 683 ==
LOC: NEPA 15:24 → NEDA 17:47 → NEDH 21:23 → HCIS 02-29 09:08 → N04B 03-05 18:15
PROVIDERS: ADMIT Family Medicine; ATTEND Family Medicine
PROC: 07DR3ZX Extraction of Iliac Bone Marrow, Percutaneous Approach, Diagnostic (ICD-10-PCS; principal; 2016-03-08)
PROC: 0TB03ZX Excision of Right Kidney, Percutaneous Approach, Diagnostic (ICD-10-PCS; 2016-03-09)
DX: N17.9 Acute kidney failure, unspecified (principal); I50.30 Unspecified diastolic (congestive) heart failure; M46.82 Other specified inflammatory spondylopathies, cervical region; D47.2 Monoclonal gammopathy; N26.9 Renal sclerosis, unspecified; M54.12 Radiculopathy, cervical region; I25.10 Atherosclerotic heart disease of native coronary artery without angina pectoris; J44.9 Chronic obstructive pulmonary disease, unspecified; R20.0 Anesthesia of skin; R30.0 Dysuria; N18.9 Chronic kidney disease, unspecified; E78.5 Hyperlipidemia, unspecified; G89.29 Other chronic pain; M54.5 Low back pain; E78.00 Pure hypercholesterolemia, unspecified; J98.01 Acute bronchospasm; D63.1 Anemia in chronic kidney disease; I49.3 Ventricular premature depolarization; R55 Syncope and collapse; M25.511 Pain in right shoulder; Z23 Encounter for immunization; Z87.891 Personal history of nicotine dependence; R33.9 Retention of urine, unspecified; Z59.0 Homelessness; Z79.02 Long term (current) use of antithrombotics/antiplatelets; Z86.73 Personal history of transient ischemic attack (TIA), and cerebral infarction without residual deficits
CPT/HCPCS: 38221; 50200; 70450; 71010; 71555; 73221; 74000; 74020; 76705; 76775; 77012; 77075; 78452; 80048; 80053; 80061; 80069; 81001; 81050; 82306; 82550; 82552; 82784; 83615; 83735; 83880; 83883; 83970; 84100; 84156; 84165; 84166; 84484; 84550; 85025; 85027; 85060; 85097; 85610; 85730; 86021; 86038; 86160; 86334; 86703; 86803; 87340; 87640; 87641; 88305; 88311; 88313; 88341; 90732; 93005; 93017; 93306; 93880; 93971; 94150; 96361; 96365; 96372; 96375; 99152; A9502; A9577; C1830; C8909; G0364; J1644; J1650; J2250; J2270; J2785; J3010; J3475; J7030; J7040

== ENCOUNTER → 2016-04-06 | Outpatient (CLI) | payer OTHER ==
[~2016-04-06] MED LIST changes: +AMOX500C PO; +ASPI81TA11 PO; -ATOR40TA16 PO; -BACL10TA PO; +CALC600T10 PO; +CARV12.5 PO; +CLON.1 PO; +CLOP75TA PO; +DULO1CAP PO; +DULO20 PO; +FURO20TA PO; -FURO40TA PO; +GABA600T PO; +HYDR-3801 PO; +LIPI80TA PO; -LISI40TA PO; +LOSA100T PO; +LOSA50TA PO; +METH125I2 IM; +MIRTA15 PO; +NEUR300C PO; +OXYC-392 PO; +PRED5TAB PO; +TAMS5CAP PO; +VITA100018 PO
[2016-04-06 12:29] LABS: BICARBONATE 21.6 MEQ/L (21.0-32.0); CALCIUM-PROTEIN CORRECTED 8.1 MG/DL (8.5-10.1); POTASSIUM 3.9 MEQ/L (3.5-5.1); TOTAL BILIRUBIN ADULT 0.1 MG/DL (0.2-1.0)
== END ==
LOC: CLAB 11:35
PROVIDERS: ATTEND Family Medicine
DX: N28.9 Disorder of kidney and ureter, unspecified (principal); N40.0 Benign prostatic hyperplasia without lower urinary tract symptoms
CPT/HCPCS: 36415; 80053; 84153

== ENCOUNTER → 2016-05-03 | Outpatient (CLI) | payer OTHER ==
[~2016-05-03] MED LIST changes: -CARV12.5 PO; -DULO20 PO; -NEUR300C PO
[2016-05-03 14:24] LABS: HEMATOCRIT 27.3 % (39.0-51.0); MEAN CELL VOLUME 94.7 FL (80.0-100.0); MEAN CORPUSCULAR HEMOGLOBIN 33.1 PG (27.0-34.0); PLATELET COUNT 303 TH/MM3 (150-450); RED BLOOD COUNT 2.88 MIL/MM3 (4.50-5.90); RED CELL DISTRIBUTION WIDTH 14.9 % (11.6-17.2); REVIEW FLAG FINAL; WHITE BLOOD COUNT 10.4 TH/MM3 (4.0-11.0)
[2016-05-03 15:03] LABS: ANION GAP 7 MEQ/L (5-15); BICARBONATE 26.7 MEQ/L (21.0-32.0); BLOOD UREA NITROGEN 14 MG/DL (7-18); CHLORIDE 110 MEQ/L (98-107); FERRITIN 288 NG/ML (26-388); GLOMERULAR FILTRATION RATE 35 ML/MIN (>89); GLUCOSE,FASTING 86 MG/DL (74-99); POTASSIUM 3.5 MEQ/L (3.5-5.1); SODIUM (NA) 144 MEQ/L (136-145); TRANSFERRIN IRON PROFILE 129 MG/DL (200-360)
== END ==
LOC: CLAB 13:58
PROVIDERS: ATTEND Physician Assistant
DX: R80.9 Proteinuria, unspecified (principal); N18.4 Chronic kidney disease, stage 4 (severe); D63.1 Anemia in chronic kidney disease
CPT/HCPCS: 36415; 80069; 82570; 82728; 83540; 83550; 84156; 85027

== ENCOUNTER → 2016-05-12 | Outpatient (CLI) | payer OTHER ==
[~2016-05-12] MED LIST changes: -CLON.1 PO; -OXYC-392 PO
[2016-05-12 07:41] LABS: AUTOMATED NEUTROPHIL # 11.2 TH/MM3 (1.8-7.7); BASOPHIL # 0.1 TH/MM3 (0-0.2); BASOPHIL % 0.7 % (0.0-2.0); EOSINOPHIL # 0.3 TH/MM3 (0-0.4); EOSINOPHIL % 1.8 % (0.0-4.0); HEMATOCRIT 30.9 % (39.0-51.0); HEMO FLAGS DIFF FINAL; LYMPH % 28.9 % (9.0-44.0); LYMPHOCYTE # 4.9 TH/MM3 (1.0-4.8); MEAN CELL VOLUME 97.2 FL (80.0-100.0); MEAN CORPUSCULAR HEMOGLOBIN 32.3 PG (27.0-34.0); MEAN CORPUSCULAR HGB CONC 33.2 % (32.0-36.0); MONO % 2.9 % (0.0-8.0); NEUT % 65.7 % (16.0-70.0); PLATELET COUNT 361 TH/MM3 (150-450); RED BLOOD COUNT 3.18 MIL/MM3 (4.50-5.90); RED CELL DISTRIBUTION WIDTH 15.5 % (11.6-17.2); WHITE BLOOD COUNT 17.1 TH/MM3 (4.0-11.0)
[2016-05-12 08:06] LABS: ANION GAP 8 MEQ/L (5-15); AST (GOT) 19 U/L (15-37); BICARBONATE 25.1 MEQ/L (21.0-32.0); BLOOD UREA NITROGEN 22 MG/DL (7-18); CHLORIDE 110 MEQ/L (98-107); GLOMERULAR FILTRATION RATE 35 ML/MIN (>89); GLUCOSE,FASTING 85 MG/DL (74-99); SODIUM (NA) 143 MEQ/L (136-145)
[2016-05-12 08:08] LABS: ALKALINE PHOSPHATASE 66 U/L (45-117); ALT (GPT) 15 U/L (12-78); TOTAL BILIRUBIN ADULT 0.1 MG/DL (0.2-1.0)
== END ==
LOC: CLAB 07:26
PROVIDERS: ATTEND Family Medicine
DX: I10 Essential (primary) hypertension (principal); D64.9 Anemia, unspecified; N28.9 Disorder of kidney and ureter, unspecified
CPT/HCPCS: 36415; 80053; 85025

== ENCOUNTER → 2016-06-30 | Outpatient (CLI) | payer OTHER ==
[~2016-06-30] MED LIST changes: -AMOX500C PO; -GABA300C5 PO
[2016-06-30 10:04] LABS: BACTERIA, URINE OCC /hpf; BLOOD, URINE MOD (NEG); COMMENT (UR) CULT NOT INDICATED; CULTURE IF INDICATED CULT NOT INDICATED; GLUCOSE,URINE NEG (NEG); HYALINE CAST, URINE 1 /lpf (RARE); KETONE, URINE NEG (NEG); MUCUS URINE FEW /lpf (OCC); NITRITE,URINE NEG (NEG); SQUAMOUS EPITHELIAL CELL URINE <1 /hpf (0-5); URINE COLOR YELLOW (YELLW/STRAW)
[2016-06-30 10:06] LABS: HEMATOCRIT 31.3 % (39.0-51.0); MEAN CELL VOLUME 98.1 FL (80.0-100.0); MEAN CORPUSCULAR HEMOGLOBIN 32.3 PG (27.0-34.0); PLATELET COUNT 289 TH/MM3 (150-450); RED BLOOD COUNT 3.19 MIL/MM3 (4.50-5.90); RED CELL DISTRIBUTION WIDTH 14.4 % (11.6-17.2); REVIEW FLAG FINAL; WHITE BLOOD COUNT 8.3 TH/MM3 (4.0-11.0)
[2016-06-30 10:13] LABS: BICARBONATE 23.6 MEQ/L (21.0-32.0)
== END ==
LOC: CLAB 08:55
PROVIDERS: ATTEND Physician Assistant
DX: R80.9 Proteinuria, unspecified (principal); N18.4 Chronic kidney disease, stage 4 (severe)
CPT/HCPCS: 36415; 80069; 81001; 82570; 83970; 84156; 85027

== ENCOUNTER → 2016-07-05 | Outpatient (CLI) | payer OTHER ==
[2016-07-05 10:44] LABS: CREAT 24 TIMED 100.1 MG/DL; URINE TOTAL PROTEIN TIMED 375.6 MG/DL
== END ==
LOC: CLAB 06:46
PROVIDERS: ATTEND Physician Assistant
DX: R80.9 Proteinuria, unspecified (principal); N18.4 Chronic kidney disease, stage 4 (severe)
CPT/HCPCS: 82570; 84157

== ENCOUNTER 2016-09-14 11:29 | Inpatient (IN) | payer OTHER ==
[2016-09-14] VITALS (7 sets, daily range): BP systolic 129–169; BP diastolic 79–103; PULSE 78–84; RESP 16–20; TEMP 98.3–99.4; O2SAT 95–100
[~2016-09-14] VITALS: Ht 188 cm; Wt 113.5 kg
[~2016-09-14 11:29] MED LIST changes: -HYDR25TA35 PO; -LOSA50TA PO; -METH125I2 IM; -PLAV75TA29 PO
[2016-09-14 12:43] LABS: AUTOMATED NEUTROPHIL # 11.8 TH/MM3 (1.8-7.7); BASOPHIL # 0.1 TH/MM3 (0-0.2); BASOPHIL % 0.4 % (0.0-2.0); EOSINOPHIL # 0.2 TH/MM3 (0-0.4); EOSINOPHIL % 1.2 % (0.0-4.0); HEMATOCRIT 28.6 % (39.0-51.0); HEMO FLAGS DIFF FINAL; LYMPH % 10.6 % (9.0-44.0); LYMPHOCYTE # 1.5 TH/MM3 (1.0-4.8); MEAN CELL VOLUME 97.6 FL (80.0-100.0); MEAN CORPUSCULAR HEMOGLOBIN 33.2 PG (27.0-34.0); MONO % 4.8 % (0.0-8.0); PLATELET COUNT 251 TH/MM3 (150-450); RED BLOOD COUNT 2.93 MIL/MM3 (4.50-5.90); RED CELL DISTRIBUTION WIDTH 14.4 % (11.6-17.2); WHITE BLOOD COUNT 14.3 TH/MM3 (4.0-11.0)
--- NOTE | 2016-09-14 12:49 | RADRPT ---
EXAM DATE/TIME: 09/14/2016 12:28 [facility] COMPARISON: CHEST SINGLE AP, February 28, 2016, 15:47. INDICATIONS : Short of breath, chest pain, back pain for one month MEDICAL HISTORY : renal failure SURGICAL HISTORY : None. ENCOUNTER: Initial ACUITY: 1 month PAIN SCORE: 9/10 LOCATION: Bilateral chest FINDINGS: A single view of the chest demonstrates consolidation in the right upper, right lower and left lower lobe. No pleural effusions seen. Heart normal size. Osseous structures are intact. CONCLUSION: Multilobar consolidation likely pneumonia. Paul Lala MD on September 14, 2016 at 12:47 Board Certified Radiologist. This report was verified electronically.
[2016-09-14 12:59] LABS: APTT (PATIENT) 25.4 SEC (24.3-30.1); INTERNATIONAL NORMALIZED RATIO 0.9 RATIO; PROTHROMBIN TIME - PATIENT 9.4 SEC (9.8-11.6)
[2016-09-14 13:10] LABS: ANION GAP 9 MEQ/L (5-15); AST (GOT) 56 U/L (15-37); BLOOD UREA NITROGEN 33 MG/DL (7-18); CHLORIDE 111 MEQ/L (98-107); GLOMERULAR FILTRATION RATE 19 ML/MIN (>89); MAGNESIUM 2.3 MG/DL (1.5-2.5); SODIUM (NA) 137 MEQ/L (136-145)
[2016-09-14 13:18] LABS: ALKALINE PHOSPHATASE 63 U/L (45-117); ALT (GPT) 33 U/L (12-78); CREATINE KINASE 1429 U/L (39-308); TOTAL BILIRUBIN ADULT 0.2 MG/DL (0.2-1.0)
--- NOTE | 2016-09-14 13:31 | PD ---
HPI Chief Complaint: Chest Pain Time Seen by Provider: 12:00 Travel History International Travel<30 days: No Contact w/Intl Traveler<30days: No Traveled to known affect area: No History of Present Illness HPI Patient is a 56-year-old male presenting to the emergency department for evaluation of chest pain, back pain, swelling, shortness of breath. Patient states the chest pain is been on and off for year, his back pain appears chronic in nature with no new injury or trauma. He states for the last week he' s had increased swelling in his extremities and eyes with increasing shortness of breath. He also reports nausea, decreased urinary output. He denies any radiation of the chest pain to his arm or jaw, it is substernal in nature and aching. He reports his pain in his chest as a 5 out of 10. Patient isn't taking any medications to alleviate the back pain. He is followed by the primary care clinic, Dr. Quintero. His past medical history significant for chronic kidney disease, chronic pain, hyperlipidemia, hypertension, BPH. PFSH Past Medical History Hx Anticoagulant Therapy: Yes (on Plavix) Depression: Yes Heart Rhythm Problems: No Cancer: No Cardiac Catheterization: Yes Cardiovascular Problems: Yes (cardiac cath in september 2015) High Cholesterol: Yes Chest Pain: Yes Congestive Heart Failure: Yes Coronary Artery Disease: Yes Diabetes: Yes Patient Takes Glucophage: No Diminished Hearing: No GERD: Yes Genitourinary: Yes Headaches: Yes Heparin Induced Thrombocytopen: No Hypertension: Yes (ON AND OFF) Immune Disorder: No Implanted Vascular Access Dvce: No Medical other: Yes (chronic kidney disease) Musculoskeletal: Yes (chronic lumbar pain) Neurologic: Yes (neuropathy) Reproductive: No Immunizations Current: No Triglycerides - High: Yes Tetanus Vaccination: Unknown Past Surgical History Coronary Artery Bypass Graft: No Other Surgery: No Social History Alcohol Use: Yes (occassionally) Tobacco Use: No (quit recently, used to smoke 4-5 cigs a day) Substance Use: No Allergies-Medications (Allergen,Severity, Reaction): Coded Allergies: *MDRO Multi-Drug Resistant Organism (Verified Adverse Reaction, Unknown, ) 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 Reported Meds & Prescriptions Reported Meds & Active Scripts Active Clopidogrel (Clopidogrel Bisulfate) 75 Mg Tab 75 Mg PO DAILY Amlodipine (Amlodipine Besylate) 10 Mg Tab 10 Mg PO DAILY Hydralazine (Hydralazine HCl) 100 Mg Tab 100 Mg PO TID Take with meals Gabapentin 600 Mg Tab 600 Mg PO TID Flomax (Tamsulosin HCl) 0.4 Mg Cap 2 Tab PO HS Furosemide 20 Mg Tab 20 Mg PO DAILY Patient is to take 1 tablet MWF of each week. Vitamin D3 (Cholecalciferol) 1,000 Unit Tab 2,000 Units PO DAILY Aspirin EC (Aspirin) 81 Mg Tabdr 81 Mg PO DAILY Lipitor (Atorvastatin Calcium) 80 Mg Tab 80 Mg PO HS Protonix (Pantoprazole Sodium) 40 Mg Tab 40 Mg PO DAILY Flexeril (Cyclobenzaprine HCl) 10 Mg Tab 10 Mg PO TID Reported Calcium + D3 (Calcium Carbonate-Cholecalciferol) 600-200 Mg-Unit Tab 1 Tab PO BID Mirtazapine 15 Mg Tab 15 Mg PO HS Potassium Chloride ER (Potassium Chloride) 20 Meq Tab 20 Meq PO DAILY Carvedilol 6.25 Mg Tab 6.25 Mg PO BID Review of Systems Except as stated in HPI: all other systems reviewed are Neg General / Constitutional: No: Fever HENT: No: Headaches Cardiovascular: Positive: Chest Pain or Discomfort, Dyspnea on exertion, Edema Respiratory: Positive: Shortness of Breath Gastrointestinal: Positive: Nausea, No: Abdominal Pain Musculoskeletal: Positive: Myalgias, Pain Neurologic: No: Weakness, Dizziness, Syncope Physical Exam Narrative GENERAL: Well-developed, well-nourished, comfortable-appearing male. SKIN: Warm and dry. HEAD: Atraumatic. Normocephalic. EYES: Pupils equal and round. No scleral icterus. No injection or drainage. Edema to bilateral upper eyelids ENT: No nasal bleeding or discharge. Mucous membranes pink and moist. NECK: Trachea midline. No JVD. CARDIOVASCULAR: Regular rate and rhythm. 2/6 systolic murmur RESPIRATORY: No accessory muscle use. Clear to auscultation. Breath sounds equal and diminished bilaterally. GASTROINTESTINAL: Abdomen soft, non-tender, nondistended. Hepatic and splenic margins not palpable. Positive bowel sounds, no rebound, no guarding MUSCULOSKELETAL: Extremities without clubbing, cyanosis. 2+ pitting edema to bilateral lower extremities. No obvious deformities. NEUROLOGICAL: Awake and alert. No obvious cranial nerve deficits. Motor grossly within normal limits. Five out of 5 muscle strength in the arms and legs. Normal speech. PSYCHIATRIC: Appropriate mood and affect; insight and judgment normal. Data Data Last Documented VS Vital Signs Date Time Temp Pulse Resp B/P Pulse Ox O2 Delivery O2 Flow Rate FiO2 09/14/16 15:18 82 16 132/103 100 Room Air 09/14/16 12:22 98.3 Orders Complete Blood Count With Diff (09/14/16 12:18) Comprehensive Metabolic Panel (09/14/16 12:18) B-Type Natriuretic Peptide (09/14/16 12:18) Act Partial Throm Time (Ptt) (09/14/16 12:18) Prothrombin Time / Inr (Pt) (09/14/16 12:18) Magnesium (Mg) (09/14/16 12:18) Ckmb (Isoenzyme) Profile (09/14/16 12:18) Troponin I (09/14/16 12:18) Urinalysis - C+S If Indicated (09/14/16 12:18) Iv Access Insert/Monitor (09/14/16 12:18) Electrocardiogram (09/14/16 12:18) Ecg Monitoring (09/14/16 12:18) Oximetry (09/14/16 12:18) Oxygen Administration (09/14/16 12:18) Chest, Single Ap (09/14/16 12:18) Sodium Chloride 0.9% Flush (Ns Flush) (09/14/16 12:30) Creatine Kinase (Cpk) (09/14/16 12:18) C-Reactive Protein (Crp) (09/14/16 12:18) W[place]gren Sedimentation Rate (09/14/16 12:18) CKMB (09/14/16 12:30) CKMB% (09/14/16 12:30) Lactic Acid Sepsis Protocol (09/14/16 13:53) Blood Culture (09/14/16 13:53) Piperacil-Tazo 4.5 Gm Premix (Zosyn 4.5 (09/14/16 13:53) Azithromycin Inj (Zithromax Inj) (09/14/16 13:53) Morphine Inj (Morphine Inj) (09/14/16 14:15) Sodium Chlor 0.9% 1000 Ml Inj (Ns 1000 M (09/14/16 14:15) Vancomycin Inj (Vancomycin Inj) (09/14/16 14:15) Drug Screen, Random Urine (09/14/16 14:40) Arterial Blood Gas (Abg) (09/14/16 ) Admit Order (Ed Use Only) (09/14/16 16:17) Labs Laboratory Tests Test 09/14/16 09/14/16 09/14/16 09/14/16 12:30 14:00 14:10 15:12 White Blood Count 14.3 TH/MM3 Red Blood Count 2.93 MIL/MM3 Hemoglobin 9.7 GM/DL Hematocrit 28.6 % Mean Corpuscular Volume 97.6 FL Mean Corpuscular Hemoglobin 33.2 PG Mean Corpuscular Hemoglobin 34.0 % Concent Red Cell Distribution Width 14.4 % Platelet Count 251 TH/MM3 Mean Platelet Volume 8.2 FL Neutrophils (%) (Auto) 83.0 % Lymphocytes (%) (Auto) 10.6 % Monocytes (%) (Auto) 4.8 % Eosinophils (%) (Auto) 1.2 % Basophils (%) (Auto) 0.4 % Neutrophils # (Auto) 11.8 TH/MM3 Lymphocytes # (Auto) 1.5 TH/MM3 Monocytes # (Auto) 0.7 TH/MM3 Eosinophils # (Auto) 0.2 TH/MM3 Basophils # (Auto) 0.1 TH/MM3 CBC Comment DIFF FINAL Differential Comment Erythrocyte Sedimentation Rate 72 mm/hr Prothrombin Time 9.4 SEC Prothromb Time International 0.9 RATIO Ratio Activated Partial 25.4 SEC Thromboplast Time Sodium Level 137 MEQ/L Potassium Level 6.0 MEQ/L Chloride Level 111 MEQ/L Carbon Dioxide Level 17.0 MEQ/L Anion Gap 9 MEQ/L Blood Urea Nitrogen 33 MG/DL Creatinine 4.04 MG/DL Estimat Glomerular Filtration 19 ML/MIN Rate Random Glucose 116 MG/DL Calcium Level 7.5 MG/DL Magnesium Level 2.3 MG/DL Total Bilirubin 0.2 MG/DL Aspartate Amino Transf 56 U/L (AST/SGOT) Alanine Aminotransferase 33 U/L (ALT/SGPT) Alkaline Phosphatase 63 U/L Total Creatine Kinase 1429 U/L Creatine Kinase MB 12.0 NG/ML Creatine Kinase MB % 0.8 % Troponin I 0.06 NG/ML C-Reactive Protein 0.75 MG/DL B-Type Natriuretic Peptide 78 PG/ML Total Protein 5.8 GM/DL Albumin 1.9 GM/DL Urine Color YELLOW Urine Turbidity CLEAR Urine pH 6.0 Urine Specific [place] 1.007 Urine Protein 300 mg/dL Urine Glucose (UA) NEG mg/dL Urine Ketones NEG mg/dL Urine Occult Blood MOD Urine Nitrite NEG Urine Bilirubin NEG Urine Urobilinogen LESS THAN 2.0 MG/DL Urine Leukocyte Esterase NEG Urine RBC 98 /hpf Urine WBC 4 /hpf Urine Squamous Epithelial <1 /hpf Cells Urine Amorphous Sediment RARE Urine Bacteria RARE /hpf Urine Mucus FEW /lpf Microscopic Urinalysis Comment CULT NOT INDICATED Urine Opiates Screen NEG Urine Barbiturates Screen NEG Urine Amphetamines Screen NEG Urine Benzodiazepines Screen NEG Urine Cocaine Screen NEG Urine Cannabinoids Screen NEG Lactic Acid Level 1.1 mmol/L Blood Gas Puncture Site LT RADIAL Blood Gas Patient Temperature 98.6 Blood Gas HCO3 15 mmol/L Blood Gas Base Excess -10.1 mmol/L Blood Gas Oxygen Saturation 91 % Arterial Blood pH 7.30 Arterial Blood Partial 32 mmHg Pressure CO2 Arterial Blood Partial 74 mmHG Pressure O2 Arterial Blood Oxygen Content 12.0 Vol % Arterial Blood 2.2 % Carboxyhemoglobin Arterial Blood Methemoglobin 0.8 % Blood Gas Hemoglobin 9.3 G/DL Blood Gas Inspired Oxygen 21 % MDM Medical Decision Making Medical Screen Exam Complete: Yes Emergency Medical Condition: Yes Medical Record Reviewed: Yes Interpretation(s) Vital Signs Date Time Temp Pulse Resp B/P Pulse Ox O2 Delivery O2 Flow Rate FiO2 09/14/16 12:22 98 Room Air 09/14/16 12:22 98.3 80 18 164/94 98 Room Air 09/14/16 12:11 82 18 98 Room Air 09/14/16 12:11 98.3 84 18 164/94 98 Room Air 09/14/16 11:30 98.6 78 16 129/79 95 Differential Diagnosis Acute on chronic kidney disease versus rhabdomyolysis versus CHF versus ACS versus polymyalgia versus chronic pain versus USA versus other Narrative Course Patient is a 56-year-old male that presented to emergency evaluation of chest pain, myalgia, shortness of breath, edema. Patient's vital signs are stable, he was well oxygenated on room air and afebrile. Upon review of medical records , patient has a history of chronic pain syndrome and was referred to pain management, he has not followed up with pain management due to it being an out- of-pocket expense. Due to the diffuse nature of his pain which is different than his normal chronic pain, will check CK to rule out rhabdomyolysis, sedimentation rate and CRP for possible polymyalgia rheumatica. Cardiac enzymes , CBC, chemistry ordered and pending. 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 Cardiac cath performed in September 2015 that showed 50%-60% of the diagonal artery. NM stress test showed mild left ventricular dysfunction with no ischemia. Elevated troponin at that time was attributed to renal insufficiency. Chest x-ray read by radiologist shows multilobular consolidation likely pneumonia. Lactic acid and blood cultures, urine drug screen added on and pending. CBC with a white count of 14.3 with left shift ESR 72, CRP 0.75 BUN and creatinine 33/4.04 which is increased from prior results in June 2016 @ 24/2.35. Potassium 6.0, slight hemolysis noted. CK 1429 Troponin 0.06 Lactic acid 1.1 Urinalysis with 98 RBCs, moderate occult blood. Patient was given 1 L IV fluid bolus, vancomycin, Zosyn, azithromycin ordered as well. Patient remains hemodynamically stable, he was given pain medication and has been resting comfortably. Dr. Best accepted admission, orders placed. Sepsis Criteria SIRS Criteria (2 or more): WBC > 28788, < 4000 or > 10% bands Severe Sepsis (+one): Acute Oliguria/Renal Failure Diagnosis Primary Impression: Acute renal failure superimposed on chronic kidney disease Qualified Code: N17.9 - Acute renal failure superimposed on chronic kidney disease, unspecified CKD stage, unspecified acute renal failure type Additional Impressions: Pneumonia Qualified Code: J18.9 - Pneumonia due to infectious organism, unspecified laterality, unspecified part of lung Secondary rhabdomyolysis Hypertension Qualified Code: I10 - Hypertension, unspecified type Hyperkalemia Admitting Information Admitting Physician Requests: Admit Condition: Stable Pat Lopez Sep 14, 2016 13:31
[2016-09-14] MEDS ORDERED: PIPERACIL-TAZO 4.5 GM PREMIX 100 ML IV STA (13:53)
[2016-09-14] MEDS ORDERED: AZITHROMYCIN INJ 500 MG in SODIUM CHLOR 0.9% 250 ML INJ 250 ML IV STA (13:53)
[2016-09-14] MEDS ORDERED: VANCOMYCIN INJ 1,000 MG in SODIUM CHLOR 0.9% 250 ML INJ 250 ML IV ONE (14:15)
[2016-09-14] MEDS ORDERED: SODIUM CHLOR 0.9% 1000 ML INJ 1,000 ML IV ONE (14:15)
[2016-09-14] MEDS ORDERED: MORPHINE SULFATE 8 MG/ML INJ IV PUSH ONE (14:15)
[2016-09-14 15:05] LABS: BACTERIA, URINE RARE /hpf; BLOOD, URINE MOD (NEG); COMMENT (UR) CULT NOT INDICATED; CULTURE IF INDICATED CULT NOT INDICATED; GLUCOSE,URINE NEG (NEG); KETONE, URINE NEG (NEG); MUCUS URINE FEW /lpf (OCC); NITRITE,URINE NEG (NEG); SQUAMOUS EPITHELIAL CELL URINE <1 /hpf (0-5); URINE COLOR YELLOW (YELLW/STRAW)
[2016-09-14 15:17] LABS: BLOOD GAS BASE EXCESS -10.1 mmol/L (-2-2); BLOOD GAS CARBOXYHEMOGLOBIN 2.2 % (0-4); BLOOD GAS HCO3 15 mmol/L (22-26); BLOOD GAS METHEMOGLOBIN 0.8 % (0-2); BLOOD GAS O2 HGB SATURATION 91 % (90-100); BLOOD GAS PCO2 32 mmHg (38-42); BLOOD GAS PO2 74 mmHG (61-120); BLOOD GAS TOTAL HGB 9.3 G/DL (12.0-16.0); CRITICAL VALUE YES; DRAW SITE LT RADIAL; FIO2 21 %; NUMBER OF ARTERIAL PUNCTURES 1; STAT YES; TEMP CORR TO 98.6; ULNAR PULSE Y
[2016-09-14 16:27] LABS: AMPHETAMINE, URINE NEG (NEG); BARBITURATES, URINE NEG (NEG); COCAINE, URINE NEG (NEG)
[2016-09-14] MEDS ORDERED: SODIUM CHLOR 0.9% 1000 ML INJ 1,000 ML IV SCH (16:55)
[2016-09-14] MEDS ORDERED: LACTULOSE SYRUP 20 GM/30 ML CUP PO PRN (17:00)
[2016-09-14] MEDS ORDERED: NALOXONE HCL 0.4 MG/ML AMP IV PRN (17:00)
[2016-09-14] MEDS ORDERED: MAGNESIUM HYDROXIDE SUSP 30 ML CUP PO PRN (17:00)
[2016-09-14] MEDS ORDERED: BISACODYL 10 MG SUPP RECTAL PRN (17:00)
[2016-09-14] MEDS ORDERED: ONDANSETRON HCL 4 MG/2 ML VIAL IVP PRN (17:00)
[2016-09-14] MEDS ORDERED: Vancomycin Consult Pharmacy 1 EA OTHER SCH (17:00)
[2016-09-14] MEDS ORDERED: SENNOSIDES 8.6 MG TAB PO PRN (17:00)
--- NOTE | 2016-09-14 17:04 | HHI.HP ---
cc: Rosalba Quintero MD [facility] Rosalba Quintero MD Admission Diagnosis pneumonia, acute on chronic any disease, chest pain Diagnoses: (1) Chest pain Diagnosis: Principal (2) Pneumonia (3) Hypertension (4) CAD (coronary artery disease) (5) Leukocytosis (6) Acute renal failure superimposed on chronic kidney disease (7) Elevated troponin I level (8) Hyperkalemia (9) Secondary rhabdomyolysis Chief Complaint: Chest pain Travel History International Travel<30 Days: No Contact w/Intl Traveler <30 Da: No Traveled to Known Affected Are: No Sepsis Criteria SIRS Criteria (2 or more): WBC > 74776, < 4000 or > 10% bands History of Present Illness Patient is a 56-year-old male who presented to the emergency department with complaint of chest pain, back pain, and dyspnea. He states that he has had chest pain off and on for the past year, but worse over the past 3-4 days. Back pain is chronic and he denies any new injury. He reports swelling in his extremities over the past few days which has coincided with increased dyspnea. He feels weak and states that he can't really walk because of the pain. He describes chest pain that is substernal and radiates to the back. Currently rates the chest pain at 8/10. Nothing seems to help or exacerbate the pain. Review of Systems Constitutional: COMPLAINS OF: Chills, DENIES: Fever, Night Sweats Eyes: DENIES: Blurred vision, Vision loss Ears, nose, mouth, throat: DENIES: Hearing loss Respiratory: COMPLAINS OF: Shortness of breath, DENIES: Cough, Wheezing, Sputum production Cardiovascular: COMPLAINS OF: Chest pain, Lower Extremity Edema, DENIES: Palpitations, Dyspnea on Exertion Gastrointestinal: DENIES: Abdominal pain, Constipation, Diarrhea, Nausea, Vomiting Genitourinary: DENIES: Urinary frequency, Urinary incontinence, Urgency, Hematuria, Dysuria, Nocturia Musculoskeletal: DENIES: Joint pain, Muscle aches Integumentary: DENIES: Pruritus, Rash Hematologic/lymphatic: DENIES: Bruising Neurologic: DENIES: Headache Past Family Social History Past Medical History Coronary artery disease Hyperlipidemia GERD CHF Chronic kidney disease stage IV Chronic low back pain Neuropathy Past Surgical History Cardiac catheterization Reported Medications Clopidogrel (Clopidogrel Bisulfate) 75 Mg Tab 75 Mg PO DAILY Amlodipine (Amlodipine Besylate) 10 Mg Tab 10 Mg PO DAILY Hydralazine (Hydralazine HCl) 100 Mg Tab 100 Mg PO TID Take with meals Gabapentin 600 Mg Tab 600 Mg PO TID Flomax (Tamsulosin HCl) 0.4 Mg Cap 2 Tab PO HS Furosemide 20 Mg Tab 20 Mg PO DAILY Patient is to take 1 tablet MWF of each week. Vitamin D3 (Cholecalciferol) 1,000 Unit Tab 2,000 Units PO DAILY Aspirin EC (Aspirin) 81 Mg Tabdr 81 Mg PO DAILY Lipitor (Atorvastatin Calcium) 80 Mg Tab 80 Mg PO HS Protonix (Pantoprazole Sodium) 40 Mg Tab 40 Mg PO DAILY Flexeril (Cyclobenzaprine HCl) 10 Mg Tab 10 Mg PO TID Calcium + D3 (Calcium Carbonate-Cholecalciferol) 600-200 Mg-Unit Tab 1 Tab PO BID Mirtazapine 15 Mg Tab 15 Mg PO HS Potassium Chloride ER (Potassium Chloride) 20 Meq Tab 20 Meq PO DAILY Carvedilol 6.25 Mg Tab 6.25 Mg PO BID Allergies: Coded Allergies: *MDRO Multi-Drug Resistant Organism (Verified Adverse Reaction, Unknown, ) 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 Family History Heart disease Social History The patient is a former smoker. He reports rare alcohol use. Denies illicit drug use. Physical Exam Vital Signs Vital Signs Date Time Temp Pulse Resp B/P Pulse Ox O2 Delivery O2 Flow Rate FiO2 09/14/16 15:18 82 16 132/103 100 Room Air 09/14/16 12:22 98 Room Air 09/14/16 12:22 98.3 80 18 164/94 98 Room Air 09/14/16 12:11 82 18 98 Room Air 09/14/16 12:11 98.3 84 18 164/94 98 Room Air 09/14/16 11:30 98.6 78 16 129/79 95 Physical Exam GENERAL: Well-nourished, well-developed male in no acute distress. HEENT: Normocephalic, atraumatic. Pupils equal, round and reactive. Extraocular movements intact. No scleral icterus. No injection or drainage. Oropharynx is clear. Mucous membranes are moist. Poor dentition. CARDIOVASCULAR: Regular rate and rhythm without murmurs, gallops, or rubs. RESPIRATORY: Clear to auscultation. No wheezes, rales, or rhonchi. Breathing is non-labored. GASTROINTESTINAL: Abdomen soft, non-tender, nondistended. EXTREMITIES: 2+ bilateral lower extremity edema. No calf tenderness. PSYCH: Alert and oriented x 3. Laboratory Laboratory Tests Test 09/14/16 09/14/16 09/14/16 09/14/16 12:30 14:00 14:10 15:12 White Blood Count 14.3 Red Blood Count 2.93 Hemoglobin 9.7 Hematocrit 28.6 Mean Corpuscular Volume 97.6 Mean Corpuscular Hemoglobin 33.2 Mean Corpuscular Hemoglobin 34.0 Concent Red Cell Distribution Width 14.4 Platelet Count 251 Mean Platelet Volume 8.2 Neutrophils (%) (Auto) 83.0 Lymphocytes (%) (Auto) 10.6 Monocytes (%) (Auto) 4.8 Eosinophils (%) (Auto) 1.2 Basophils (%) (Auto) 0.4 Neutrophils # (Auto) 11.8 Lymphocytes # (Auto) 1.5 Monocytes # (Auto) 0.7 Eosinophils # (Auto) 0.2 Basophils # (Auto) 0.1 CBC Comment DIFF FINAL Differential Comment Erythrocyte Sedimentation Rate 72 Prothrombin Time 9.4 Prothromb Time International 0.9 Ratio Activated Partial 25.4 Thromboplast Time Sodium Level 137 Potassium Level 6.0 Chloride Level 111 Carbon Dioxide Level 17.0 Anion Gap 9 Blood Urea Nitrogen 33 Creatinine 4.04 Estimat Glomerular Filtration 19 Rate Random Glucose 116 Calcium Level 7.5 Magnesium Level 2.3 Total Bilirubin 0.2 Aspartate Amino Transf 56 (AST/SGOT) Alanine Aminotransferase 33 (ALT/SGPT) Alkaline Phosphatase 63 Total Creatine Kinase 1429 Creatine Kinase MB 12.0 Creatine Kinase MB % 0.8 Troponin I 0.06 C-Reactive Protein 0.75 B-Type Natriuretic Peptide 78 Total Protein 5.8 Albumin 1.9 Urine Color YELLOW Urine Turbidity CLEAR Urine pH 6.0 Urine Specific [place] 1.007 Urine Protein 300 Urine Glucose (UA) NEG Urine Ketones NEG Urine Occult Blood MOD Urine Nitrite NEG Urine Bilirubin NEG Urine Urobilinogen LESS THAN 2.0 Urine Leukocyte Esterase NEG Urine RBC 98 Urine WBC 4 Urine Squamous Epithelial <1 Cells Urine Amorphous Sediment RARE Urine Bacteria RARE Urine Mucus FEW Microscopic Urinalysis Comment CULT NOT INDICATED Urine Opiates Screen NEG Urine Barbiturates Screen NEG Urine Amphetamines Screen NEG Urine Benzodiazepines Screen NEG Urine Cocaine Screen NEG Urine Cannabinoids Screen NEG Lactic Acid Level 1.1 Blood Gas Puncture Site LT RADIAL Blood Gas Patient Temperature 98.6 Blood Gas HCO3 15 Blood Gas Base Excess -10.1 Blood Gas Oxygen Saturation 91 Arterial Blood pH 7.30 Arterial Blood Partial 32 Pressure CO2 Arterial Blood Partial 74 Pressure O2 Arterial Blood Oxygen Content 12.0 Arterial Blood 2.2 Carboxyhemoglobin Arterial Blood Methemoglobin 0.8 Blood Gas Hemoglobin 9.3 Blood Gas Inspired Oxygen 21 Date/Time Procedure Status Source Growth 09/14/16 14:10 Aerobic Blood Culture Received Blood Peripheral Pending 09/14/16 14:10 Anaerobic Blood Culture Received Blood Peripheral Pending Result Diagram: 09/14/16 1230 09/14/16 1230 Imaging Last Impressions Chest X-Ray 09/14/16 1218 Signed Impressions: Service Date/Time: Wednesday, September 14, 2016 12:28 - CONCLUSION: Multilobar consolidation likely pneumonia. Paul Lala MD Assessment and Plan Assessment and Plan 1. Pneumonia: Continue supplemental oxygen, antibiotics. Add incentive spirometer. 2. Chest pain: Patient does have significant history of coronary artery disease , although the pain seems to be more musculoskeletal. Check serial cardiac enzymes and EKGs. Consult cardiology. Monitor on telemetry. 3. Acute renal failure superimposed on chronic kidney disease stage IV: Consult nephrology. Monitor labs. Gentle IV fluid hydration. 4. Acute on chronic congestive heart failure, possibly diastolic: Check 2-D echocardiogram. Continue Lasix. Consult cardiology. 5. Hyperkalemia: Lab sample was hemolyzed. Recheck labs. 6. Hypertension: Continue home medications. 7. GERD: Protonix. 8. DVT prophylaxis: Heparin. Problem Qualifiers (1) Pneumonia: Qualified Code: J18.9 - Pneumonia due to infectious organism, unspecified laterality, unspecified part of lung (2) Hypertension: Qualified Code: I10 - Hypertension, unspecified type (3) Acute renal failure superimposed on chronic kidney disease: Qualified Code: N17.9 - Acute renal failure superimposed on chronic kidney disease, unspecified CKD stage, unspecified acute renal failure type Timoteo Best MD Sep 14, 2016 17:04
[2016-09-14] MEDS ORDERED: SODIUM POLYSTYRENE SULFONATE SUSP 15 GM/60 ML CUP PO ONE (18:15)
[2016-09-14] MEDS: hydrALAZINE HCL 100 MG TAB PO SCH (19:19)
[2016-09-14] MEDS: GABAPENTIN 300 MG CAP PO SCH (19:19)
[2016-09-14] MEDS: CYCLOBENZAPRINE HCL 10 MG TAB PO SCH (19:19)
[2016-09-14] MEDS: SODIUM BICARBONATE 650 MG TAB PO SCH ×2 (19:19→21:49)
[2016-09-14 19:50] LABS: CKMB 8.6 NG/ML (0.5-3.6)
[2016-09-14] MEDS: DOCUSATE SODIUM 50 MG/SENNA 8.6 MG TAB PO SCH (21:00)
[2016-09-14] MEDS ORDERED: CALCIUM CARBONATE CHOLECALCIFEROL PO SCH (21:00)
[2016-09-14] MEDS: ATORVASTATIN 80 MG TAB PO SCH (21:48)
[2016-09-14] MEDS: HEPARIN SODIUM - SQ 10,000 UNITS/ML VIAL SQ SCH (21:48)
[2016-09-14] MEDS: MIRTAZAPINE 15 MG TAB PO SCH (21:49)
[2016-09-14] MEDS: CARVEDILOL 6.25 MG TAB PO SCH (21:49)
[2016-09-14] MEDS: TAMSULOSIN HCL 0.4 MG CAP PO SCH (21:49)
[2016-09-14] MEDS: CALCIUM/VITAMIN D 250 MG/125 U TAB PO SCH (21:49)
[2016-09-14] MEDS: SODIUM CHLORIDE 0.9% FLUSH 10 ML FLUSH IVF PRN (21:49)
[2016-09-14] MEDS: PIPERACIL-TAZO 3.375 GM PREMIX 50 ML IV SCH (21:50)
[2016-09-14] MEDS: ACETAMINOPHEN 325 MG TAB PO PRN (21:58)
[2016-09-15] VITALS (7 sets, daily range): BP systolic 128–190; BP diastolic 71–97; PULSE 66–83; RESP 17–20; TEMP 98–98.5; O2SAT 95–99
[2016-09-15 03:06] LABS: CKMB 4.9 NG/ML (0.5-3.6)
[2016-09-15] MEDS ORDERED: ACETAMINOPHEN/HYDROcodone 325 MG/10 MG TAB PO ONE (03:45)
[2016-09-15] MEDS: SODIUM BICARBONATE 650 MG TAB PO SCH ×3 (05:12→21:10)
[2016-09-15] MEDS: PIPERACIL-TAZO 3.375 GM PREMIX 50 ML IV SCH ×3 (05:12→21:10)
[2016-09-15 08:05] LABS: ANION GAP 6 MEQ/L (5-15); AST (GOT) 31 U/L (15-37); BICARBONATE 20.6 MEQ/L (21.0-32.0); BLOOD UREA NITROGEN 33 MG/DL (7-18); CHLORIDE 116 MEQ/L (98-107); GLOMERULAR FILTRATION RATE 19 ML/MIN (>89); POTASSIUM 5.5 MEQ/L (3.5-5.1); SODIUM (NA) 143 MEQ/L (136-145)
[2016-09-15 08:07] LABS: ALT (GPT) 23 U/L (12-78)
[2016-09-15 08:09] LABS: ALKALINE PHOSPHATASE 56 U/L (45-117); TOTAL BILIRUBIN ADULT 0.2 MG/DL (0.2-1.0)
--- NOTE | 2016-09-15 08:43 | EKG ---
Date Performed: 09/15/2016 Time Performed: 03:24:54 PTAGE: 56 years EKG: Sinus rhythm . Normal ECG PREVIOUS TRACING : 09/14/2016 19.00 DOCTOR: Carlton Man Interpretating Date/Time 09/15/2016 08:42:50
[2016-09-15] MEDS ORDERED: LOSARTAN 50 MG TAB PO SCH (09:00)
--- NOTE | 2016-09-15 09:00 | EKG ---
Date Performed: 09/14/2016 Time Performed: 19:00:47 PTAGE: 56 years EKG: Sinus rhythm NORMAL ECG PREVIOUS TRACING : 09/14/2016 12.08 DOCTOR: Carlton Man Interpretating Date/Time 09/15/2016 08:59:06
[2016-09-15] MEDS: HEPARIN SODIUM - SQ 10,000 UNITS/ML VIAL SQ SCH ×2 (10:16→21:13)
[2016-09-15] MEDS: CLOPIDOGREL 75 MG TAB PO SCH (10:17)
[2016-09-15] MEDS: CYCLOBENZAPRINE HCL 10 MG TAB PO SCH ×3 (10:17→17:24)
[2016-09-15] MEDS: DOCUSATE SODIUM 50 MG/SENNA 8.6 MG TAB PO SCH ×2 (10:17→21:10)
[2016-09-15] MEDS: GABAPENTIN 300 MG CAP PO SCH ×2 (10:17→13:26)
[2016-09-15] MEDS: CARVEDILOL 6.25 MG TAB PO SCH ×2 (10:17→21:10)
[2016-09-15] MEDS: PANTOPRAZOLE SOD 40 MG DELAYED RELEASE TAB PO SCH (10:18)
[2016-09-15] MEDS: ASPIRIN EC 81 MG TABEC PO SCH (10:18)
[2016-09-15] MEDS: hydrALAZINE HCL 100 MG TAB PO SCH ×3 (10:19→17:24)
[2016-09-15] MEDS: CALCIUM/VITAMIN D 250 MG/125 U TAB PO SCH ×2 (10:19→21:10)
[2016-09-15] MEDS: FUROSEMIDE 20 MG TAB PO SCH (10:19)
--- NOTE | 2016-09-15 10:29 | EKG ---
Date Performed: 09/14/2016 Time Performed: 12:08:27 PTAGE: 56 years EKG: Sinus rhythm NORMAL ECG PREVIOUS TRACING : 02/29/2016 01.59 DOCTOR: Carlton Man Interpretating Date/Time 09/15/2016 10:28:59
--- NOTE | 2016-09-15 10:49 | HHI.PR ---
Subjective Remarks Follow up pneumonia, renal failure. Patient still reporting chest pain, unchanged. Also having low back pain. Denies dyspnea. Objective Vitals Vital Signs Date Time Temp Pulse Resp B/P Pulse Ox O2 Delivery O2 Flow Rate FiO2 09/15/16 08:00 98.1 66 17 168/76 95 09/15/16 04:00 98.2 72 20 131/71 97 09/15/16 03:39 21 09/15/16 00:00 98.0 80 20 128/75 96 09/14/16 21:00 84 09/14/16 19:35 99.4 80 20 169/98 98 09/14/16 19:20 98 09/14/16 15:18 82 16 132/103 100 Room Air 09/14/16 12:22 98 Room Air 09/14/16 12:22 98.3 80 18 164/94 98 Room Air 09/14/16 12:11 82 18 98 Room Air 09/14/16 12:11 98.3 84 18 164/94 98 Room Air 09/14/16 11:30 98.6 78 16 129/79 95 I/O 09/14/16 09/14/16 09/14/16 09/15/16 09/15/16 09/15/16 07:00 15:00 23:00 07:00 15:00 23:00 Intake Total 2108 ml 240 ml Output Total 1200 ml 1000 ml Balance 908 ml -760 ml Intake Oral 280 ml 240 ml IV Total 1828 ml Output Urine Total 1200 ml 1000 ml # Bowel Movements 0 Result Diagram: 09/14/16 1230 09/15/16 0643 Imaging Last Impressions Chest X-Ray 09/14/16 1218 Signed Impressions: Service Date/Time: Wednesday, September 14, 2016 12:28 - CONCLUSION: Multilobar consolidation likely pneumonia. Paul Lala MD Objective Remarks General: No acute distress. Heart: Regular rate and rhythm. No murmur. Lungs: Clear to auscultation bilaterally. No wheezes, rales, or rhonchi. Breathing is nonlabored. Abdomen: Soft, nontender, nondistended. Extremities: 2+ bilateral lower extremity edema. Psych: Sleeping, but awakens and answers questions appropriately. Procedures None Urinary Catheter: No Vascular Central Line Catheter: No A/P Problem List: (1) Chest pain ICD Code: R07.9 Status: Acute (2) Pneumonia ICD Code: J18.9 Status: Acute (3) Hypertension ICD Code: I10 Status: Chronic (4) CAD (coronary artery disease) ICD Code: I25.10 Status: Acute (5) Leukocytosis ICD Code: D72.829 Status: Acute (6) Acute renal failure superimposed on chronic kidney disease ICD Code: N17.9 Status: Acute (7) Elevated troponin I level ICD Code: R74.8 Status: Acute (8) Hyperkalemia ICD Code: E87.5 Status: Acute (9) Secondary rhabdomyolysis ICD Code: M62.82 Status: Acute Assessment and Plan 1. Pneumonia: Continue supplemental oxygen, antibiotics, incentive spirometer. 2. Chest pain: Patient does have significant history of coronary artery disease , although the pain seems to be more musculoskeletal. Check serial cardiac enzymes and EKGs. Cardiology consultation is pending. Monitor on telemetry. 3. Acute renal failure superimposed on chronic kidney disease stage IV: Nephrology consultation is pending. Monitor labs. Gentle IV fluid hydration, using caution due to CHF. 4. Acute on chronic congestive heart failure, possibly diastolic: Check 2-D echocardiogram. Continue Lasix. Cardiology consultation is pending. 5. Hyperkalemia: Kayexalate given. Potassium is slightly lower today. 6. Hypertension: Continue home medications. 7. GERD: Protonix. 8. DVT prophylaxis: Heparin. Problem Qualifiers (1) Pneumonia: Qualified Code: J18.9 - Pneumonia due to infectious organism, unspecified laterality, unspecified part of lung (2) Hypertension: Qualified Code: I10 - Hypertension, unspecified type (3) Acute renal failure superimposed on chronic kidney disease: Qualified Code: N17.9 - Acute renal failure superimposed on chronic kidney disease, unspecified CKD stage, unspecified acute renal failure type Timoteo Best MD Sep 15, 2016 10:49
[2016-09-15] MEDS ORDERED: VANCOMYCIN 1,000 MG/NS 250 ML IV ONE ×2 (12:00)
--- NOTE | 2016-09-15 13:16 | MB ---
cc: JOSE HOBSON M.D. DATE OF CONSULTATION: 09/15/2016 HISTORY OF PRESENT ILLNESS Denilson is a very pleasant 56-year-old gentleman with a history of coronary artery disease. He had a 60% ostial lesion of a medium to large size diagonal vessel which has a 45 degree angle off the mid LAD diagnosed back in September 2015. He has chronic renal insufficiency. He presents with moderate chest pain described as sharp, worse with exertion, associated with shortness of breath. Otherwise denies any fevers, chills, cough, GI or bleeding, PND, orthopnea, syncope or dizziness. He also complains of lower extremity edema. He states his chest pain lasts for minutes at a time and occurs at rest. PAST MEDICAL HISTORY Per history of present illness. Also has a history of: 1. Hyperlipidemia. 2. Hypertension. 3. BPH. 4. Depression. 5. CHF. 6. Diabetes. 7. Chronic low back pain. 8. Neuropathy. SOCIAL HISTORY Drinks alcohol occasionally. Smoked up until recently. ALLERGIES "MULTIDRUG RESISTANT ORGANISM." MEDICATIONS Medications prior to admission: 1. Clopidogrel 75, daily. 2. Amlodipine 10 mg daily. 3. Hydralazine 100, t.i.d. 4. Gabapentin. 5. Flomax. 6. Furosemide 20, Tuesday, Tuesday, Tuesday. 7. Vitamin-D3. 8. Aspirin 81 mg daily. 9. Lipitor 80, h.s. 10.Protonix 40, daily. 11.Flexeril 10, t.i.d. 12.Calcium carbonate. 13.Mirtazapine. 14.Potassium chloride. 15.Carvedilol 6.25, b.i.d. Medications in the hospital: 1. Vancomycin. 2. Amlodipine 10 mg daily. 3. Aspirin 81 mg daily. 4. Clopidogrel 75 mg daily. 5. Lasix 20 mg daily. 6. Pantoprazole 40 mg daily. 7. Piperacillin/tazobactam. 8. Senna. 9. Docusate. 10.Atorvastatin 80, h.s. 11.Carvedilol 6.25, b.i.d. 12.Remeron 15 mg h.s. 13.Tamsulosin. 14.Calcium. 15.Heparin 5000, subcu q.12h. 16.Sodium bicarb, 650 q.8h. 17.Cyclobenzaprine. 18.Gabapentin 600, t.i.d. 19.Hydralazine 100, t.i.d. PHYSICAL EXAMINATION VITAL SIGNS: Blood pressure 168/76, pulse 66, respiratory rate 17, temperature 98.1. Sats 95% on room air. GENERAL: He is alert and oriented x3, in no acute distress. NECK: Supple. No JVD. No bruit. CARDIOVASCULAR: S1, S2. No murmurs, rubs or gallops. LUNGS: Clear to auscultation bilaterally. ABDOMEN: Soft, nontender, nondistended. Positive bowel sounds. EXTREMITIES: No extremity edema. LABORATORY White count 14.3, hemoglobin 9.7, hematocrit 28.6, platelet count 251. Sed rate is 72. Blood gas pH 7.30, PCO2 32, PO2 74. INR 0.9. Sodium 143, potassium 5.5, chloride 116, bicarb 20.6, BUN 33, creatinine 3.99. Troponin is 0.06 and 0.05 x2. BNP 78. Albumin 1.6. Toxicology is negative. EKG EKG shows normal sinus rhythm at 83 beats per minute and is normal. IMAGING Chest x-ray shows multilobar consolidation, likely pneumonia. DIAGNOSIS 1. Non-STEMI. 2. Coronary artery disease. 3. Pneumonia. 4. Chronic renal insufficiency. 5. Hypertension. 6. Elevated white count. 7. Anemia. 8. Hyperkalemia. 9. Hypoalbuminemia. 10.Elevated liver enzymes. 11.Hyperglycemia. DISCUSSION At this point in time I do not think the patient has a primary obstructive etiology to his symptoms. I suspect his troponin elevation is due to chronic renal insufficiency and hypertension. However, I cannot completely rule out ischemic etiology given his previous coronary anatomy in September 2015. His chest pain is atypical in the sense that it does not appear to be related to exertion and there are no ischemic ST-T wave changes. I have explained that I cannot rule out an ischemic etiology without left heart catheterization, but I explained to the patient he would be very high-risk for needing temporary or permanent dialysis given his creatinine elevation. The patient adamantly refuses heart catheterization, therefore I do think it is reasonable to continue him on aspirin, Plavix, high-dose Lipitor, Coreg and Norvasc. LORA inhibitors have been held due to chronic renal insufficiency. He does appear to be on optimal medical therapy. He is also on hydralazine. If his blood pressure remains persistently elevated could consider adding minoxidil. Strongly recommend smoking cessation. MD KONG Krause/VISHAL /12:36 PM /12:53 PM
[2016-09-15] MEDS: ACETAMINOPHEN 325 MG TAB PO PRN (13:29)
--- NOTE | 2016-09-15 17:46 | PD.CONS ---
[facility] Service Nephrology Consult Requested By Dr. Best Reason for Consult Known CKD, TREE Primary Care Physician Rosalba Quintero MD History of Present Illness The patient is a 56 yo AA male who is known to our services for CKD. He presented to the ED on 09/14 with complaints of worsening CP and SOB for the past week. Also has worsening of chronic back pain and weakness in his legs. He has been dx with PNA and is being tx'd with IV abx. His renal functions on arrival are declined with SCr of 4.04 and eGFR of 19. Last outpatient renal functions in June show a SCr of 2.35 and eGFR 35. During previous admission, he had a renal biopsy done that showed severe interstitial fibrosis, severe arteriosclerosis, and severe hyalinosis without any immune deposits. His last known EF is 55-60%. Cardiology has evaluated the patient and they have opted against cardiac catheterization given severe renal impairment. Currently, the patient is complaining of back and leg pain along with some SOB. Denies any new medications recently, no illness, no NSAID use, no illicit drug use. Denies any recent NVD. Endorses good appetite. Some decrease in urinary flow, but no hesitancy. Review of Systems Respiratory: COMPLAINS OF: Cough, Shortness of breath Cardiovascular: COMPLAINS OF: Dyspnea on Exertion, Lower Extremity Edema, Orthopnea Musculoskeletal: COMPLAINS OF: Back pain Past Family Social History Allergies: Coded Allergies: *MDRO Multi-Drug Resistant Organism (Verified Adverse Reaction, Unknown, ) 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 Past Medical History CKD stage 3 with baseline SCr 2.3-2.9 and eGFR in low to mid 30s HTN Proteinuria Edema Anemia 2ndary hyperparathyroidism Vit D def Chronic back pain Past Surgical History Kidney bx Bone marrow bx Reported Medications Reported Meds & Active Scripts Active Clopidogrel (Clopidogrel Bisulfate) 75 Mg Tab 75 Mg PO DAILY Amlodipine (Amlodipine Besylate) 10 Mg Tab 10 Mg PO DAILY Losartan (Losartan Potassium) 100 Mg Tab 100 Mg PO DAILY Hydralazine (Hydralazine HCl) 100 Mg Tab 100 Mg PO TID Take with meals Gabapentin 600 Mg Tab 600 Mg PO TID Flomax (Tamsulosin HCl) 0.4 Mg Cap 2 Tab PO HS Furosemide 20 Mg Tab 20 Mg PO DAILY Patient is to take 1 tablet MWF of each week. Vitamin D3 (Cholecalciferol) 1,000 Unit Tab 2,000 Units PO DAILY Aspirin EC (Aspirin) 81 Mg Tabdr 81 Mg PO DAILY Lipitor (Atorvastatin Calcium) 80 Mg Tab 80 Mg PO HS Protonix (Pantoprazole Sodium) 40 Mg Tab 40 Mg PO DAILY Flexeril (Cyclobenzaprine HCl) 10 Mg Tab 10 Mg PO TID Reported Calcium + D3 (Calcium Carbonate-Cholecalciferol) 600-200 Mg-Unit Tab 1 Tab PO BID Mirtazapine 15 Mg Tab 15 Mg PO HS Potassium Chloride ER (Potassium Chloride) 20 Meq Tab 20 Meq PO DAILY Carvedilol 6.25 Mg Tab 6.25 Mg PO BID Active Ordered Medications Current Medications Medications (Trade) Dose Ordered Sig/Ramakrishna Route Start Time Stop Time Status Last Admin (NS Flush) 2 ml UNSCH PRN IVF 09/14/16 12:30 09/14/16 21:49 (Tylenol) 650 mg Q4H PRN PO 09/14/16 17:00 09/15/16 13:29 (Zofran Inj) 4 mg Q6H PRN IVP 09/14/16 17:00 (Heparin Inj) 5,000 units Q12H SQ 09/14/16 20:00 09/15/16 10:16 (Narcan Inj) 0.4 mg UNSCH PRN IV 09/14/16 17:00 (Kasey-Colace) 1 tab BID PO 09/14/16 21:00 09/15/16 10:17 (Milk Of Magnesia Liq) 30 ml Q12H PRN PO 09/14/16 17:00 (Senokot) 17.2 mg Q12H PRN PO 09/14/16 17:00 (Dulcolax Supp) 10 mg DAILY PRN RECTAL 09/14/16 17:00 Lactulose 30 ml 30 ml DAILY PRN PO 09/14/16 17:00 Pharmacy Profile Note 0 ml @ 0 mls/hr UNSCH OTHER 09/14/16 17:00 (Zosyn 3.375 Gm Premix) 50 ml @ 100 mls/hr Q8H IV 09/14/16 22:00 09/15/16 13:29 (Norvasc) 10 mg DAILY PO 09/15/16 09:00 09/15/16 10:19 (Ecotrin Ec) 81 mg DAILY PO 09/15/16 09:00 09/15/16 10:18 (Lipitor) 80 mg HS PO 09/14/16 21:00 09/14/16 21:48 (Coreg) 6.25 mg BID PO 09/14/16 21:00 09/15/16 10:17 (Plavix) 75 mg DAILY PO 09/15/16 09:00 09/15/16 10:17 (Flexeril) 10 mg TID PO 09/14/16 18:00 09/15/16 13:25 (Lasix) 20 mg DAILY PO 09/15/16 09:00 09/15/16 10:19 (Apresoline) 100 mg TID PO 09/14/16 18:00 09/15/16 13:24 (Remeron) 15 mg HS PO 09/14/16 21:00 09/14/16 21:49 (Protonix) 40 mg DAILY PO 09/15/16 09:00 09/15/16 10:18 (Flomax) 0.4 mg HS PO 09/14/16 21:00 09/14/16 21:49 (Sodium Bicarbonate) 650 mg Q8HR PO 09/14/16 18:15 09/15/16 13:24 (Oscal-D 250-125) 500 mg BID PO 09/14/16 21:00 09/15/16 10:19 (Neurontin) 600 mg DAILY PO 09/16/16 09:00 Family History Father with prostatic issues Mother with DM No known hx of CAD nor CKD Social History Currently homeless living in [facility]. Has friend that he says he may be moving in with in [place]. Previous smoker that quit earlier in the year Occasional EtOH use No recent illicit drug use, but says he used to socially use cocaine when he was younger. Physical Exam Vital Signs Vital Signs Date Time Temp Pulse Resp B/P Pulse Ox O2 Delivery O2 Flow Rate FiO2 09/15/16 16:00 98.5 71 18 169/91 97 09/15/16 12:00 98.4 77 17 187/88 97 09/15/16 08:00 98.1 66 17 168/76 95 09/15/16 04:00 98.2 72 20 131/71 97 09/15/16 03:39 21 09/15/16 00:00 98.0 80 20 128/75 96 09/14/16 21:00 84 09/14/16 19:35 99.4 80 20 169/98 98 09/14/16 19:20 98 Physical Exam GENERAL: Pt drowsy, but answering questions appropriately. SKIN: Warm and dry. HEAD: Atraumatic. Normocephalic. EYES: Pupils equal and round. No scleral icterus. No injection or drainage. ENT: No nasal bleeding or discharge. Mucous membranes pink and moist. NECK: Trachea midline. No JVD. CARDIOVASCULAR: Regular rate and rhythm. RESPIRATORY: No accessory muscle use. Clear to auscultation. Breath sounds equal bilaterally--diminshed throughout. GASTROINTESTINAL: Abdomen soft, non-tender, nondistended. Hepatic and splenic margins not palpable. MUSCULOSKELETAL: Extremities without clubbing, cyanosis. 1-2+ pitting edema BLE. Edema also present in bilat hips and upper extremities. NEUROLOGICAL: Awake and alert. No obvious cranial nerve deficits. Normal speech. PSYCHIATRIC: Appropriate mood and affect; insight and judgment normal. Laboratory Laboratory Tests Test 09/14/16 09/15/16 09/15/16 18:35 01:57 06:43 Total Creatine Kinase 1185 787 Creatine Kinase MB 8.6 4.9 Creatine Kinase MB % 0.7 0.6 Troponin I 0.05 0.05 Sodium Level 143 Potassium Level 5.5 Chloride Level 116 Carbon Dioxide Level 20.6 Anion Gap 6 Blood Urea Nitrogen 33 Creatinine 3.99 Estimat Glomerular Filtration 19 Rate Random Glucose 77 Calcium Level 7.5 Total Bilirubin 0.2 Aspartate Amino Transf 31 (AST/SGOT) Alanine Aminotransferase 23 (ALT/SGPT) Alkaline Phosphatase 56 Total Protein 4.8 Albumin 1.6 Date/Time Procedure Status Source Growth 09/14/16 14:10 Aerobic Blood Culture - Preliminary Resulted Blood Peripheral NO GROWTH IN 1 DAY 09/14/16 14:10 Anaerobic Blood Culture - Preliminary Resulted Blood Peripheral NO GROWTH IN 1 DAY Result Diagram: 09/14/16 1230 09/15/16 0643 Imaging Last Impressions Chest X-Ray 09/14/16 1218 Signed Impressions: Service Date/Time: Wednesday, September 14, 2016 12:28 - CONCLUSION: Multilobar consolidation likely pneumonia. Paul Lala MD Assessment and Plan Problem List: (1) Acute renal failure superimposed on chronic kidney disease Plan: The etiology of his acute renal decline is not entirely clear. His hx is not suggestive of volume depletion. Denies any new medications nor NSAID use. It is not out of the question given his previous renal biopsy findings that this is an intrinsic decline. Will check renal US given his reported slowed urinary stream to r/o obstructive process. Will also repeat serology to ensure no new process occurring. He has a significant amount of fluid on exam which potentially could be related to acute renal failure. D/C maintenance fluid. Give Bumex 2mg IVP x1 tonight. Will follow with labs in the AM. The patient has been counselled that diuresis may worsen renal functions. Discussed again with the patient the severity of his renal decline. He may be trending towards dialysis in the upcoming weeks to months, and unfortunately his social issues may prove difficult in management. Will likely need case management consultation once we can see how his renal functions will respond within the coming days, especially if renal replacement therapy seems to be imminent. Agree with holding Losartan. Medications should be adjusted for the patient's renal dysfunction. Avoid nephrotoxic medications including NSAIDs and iodinated contrast dyes. Avoid gadolinium when eGFR <30. (2) Edema Plan: As above (3) Hypertension Plan: Agree with holding Losartan. Further adjustment in BP regimen may be required to keep BP <140/90 (4) Hyperkalemia Plan: Improved after Kionex. Will repeat K+ in the AM. (5) Metabolic acidosis Plan: Improved with po bicarb. (6) Pneumonia Plan: Abx regimen as per primary team (7) Anemia Plan: Repeat CBC with Fe panel. Problem Qualifiers (1) Acute renal failure superimposed on chronic kidney disease: Qualified Code: N17.9 - Acute renal failure superimposed on chronic kidney disease, unspecified CKD stage, unspecified acute renal failure type (2) Hypertension: Qualified Code: I10 - Hypertension, unspecified type (3) Pneumonia: Qualified Code: J18.9 - Pneumonia due to infectious organism, unspecified laterality, unspecified part of lung Kelley Lora Sep 15, 2016 17:46
[2016-09-15] MEDS ORDERED: BUMETANIDE INJ 1 MG/4 ML VIAL IV PUSH ONE (18:00)
[2016-09-15] MEDS: MIRTAZAPINE 15 MG TAB PO SCH (21:09)
[2016-09-15] MEDS: ATORVASTATIN 80 MG TAB PO SCH (21:09)
[2016-09-15] MEDS: TAMSULOSIN HCL 0.4 MG CAP PO SCH (21:10)
--- NOTE | 2016-09-15 21:37 | RADRPT ---
EXAM DATE/TIME: 09/15/2016 21:12 [facility] COMPARISON: US KIDNEY/RENAL/BLADDER, February 29, 2016, 15:32. INDICATIONS : Increased lab values. MEDICAL HISTORY : Congestive heart failure. Hypercholesterolemia. Gastroesophageal reflux disease. Hyperlipidemia. Hype rtension. CAD. SURGICAL HISTORY : Cardiac cath. ENCOUNTER: Initial ACUITY: 1 day PAIN SCORE: 0/10 LOCATION: Bilateral flank MEASUREMENTS: RIGHT KIDNEY: 13.4 x 5.4 x 4.9 cm LEFT KIDNEY: 12.1 x 6.1 x 6.6 cm FINDINGS: RIGHT KIDNEY: Renal cortex is normal in thickness and increased in echotexture. No hydronephrosis, stone, or mass. LEFT KIDNEY: Renal cortex is normal in thickness and increased in echotexture. No hydronephrosis, stone, or mass. BLADDER: Within normal limits given the degree of distension. The prostate is prominent measuring 4.7 x 4.6 x 3.8 cm. CONCLUSION: 1. Prominent prostate. 2. Mild echogenic renal parenchyma again noted. Remigio Bill MD on September 15, 2016 at 21:35 Board Certified Radiologist. This report was verified electronically.
[2016-09-15] MEDS ORDERED: ACETAMINOPHEN/HYDROcodone 325 MG/5 MG TAB PO ONE (22:00)
[2016-09-16] VITALS (9 sets, daily range): BP systolic 156–184; BP diastolic 79–98; PULSE 67–80; RESP 16–19; TEMP 97.7–98.7; O2SAT 94–100
[2016-09-16] MEDS ORDERED: cloNIDine HCL 0.2 MG TAB PO ONE (04:15)
[2016-09-16] MEDS: SODIUM BICARBONATE 650 MG TAB PO SCH ×3 (04:38→22:51)
[2016-09-16] MEDS: PIPERACIL-TAZO 3.375 GM PREMIX 50 ML IV SCH ×3 (04:39→22:53)
[2016-09-16 06:58] LABS: AUTOMATED NEUTROPHIL # 5.4 TH/MM3 (1.8-7.7); BASOPHIL # 0.1 TH/MM3 (0-0.2); BASOPHIL % 0.8 % (0.0-2.0); EOSINOPHIL # 0.6 TH/MM3 (0-0.4); EOSINOPHIL % 6.4 % (0.0-4.0); HEMO FLAGS DIFF FINAL; LYMPH % 28.6 % (9.0-44.0); LYMPHOCYTE # 2.7 TH/MM3 (1.0-4.8); MEAN CELL VOLUME 97.6 FL (80.0-100.0); MEAN CORPUSCULAR HEMOGLOBIN 32.3 PG (27.0-34.0); MEAN CORPUSCULAR HGB CONC 33.1 % (32.0-36.0); MONO % 6.6 % (0.0-8.0); NEUT % 57.6 % (16.0-70.0); PLATELET COUNT 239 TH/MM3 (150-450); RED BLOOD COUNT 2.66 MIL/MM3 (4.50-5.90); RED CELL DISTRIBUTION WIDTH 14.1 % (11.6-17.2); WHITE BLOOD COUNT 9.3 TH/MM3 (4.0-11.0)
[2016-09-16 07:27] LABS: FERRITIN 155 NG/ML (26-388); TRANSFERRIN IRON PROFILE 137 MG/DL (200-360)
[2016-09-16 07:34] LABS: BICARBONATE 23.1 MEQ/L (21.0-32.0)
[2016-09-16] MEDS: CYCLOBENZAPRINE HCL 10 MG TAB PO SCH ×3 (09:21→16:54)
[2016-09-16] MEDS: CLOPIDOGREL 75 MG TAB PO SCH (09:21)
[2016-09-16] MEDS: CALCIUM/VITAMIN D 250 MG/125 U TAB PO SCH ×2 (09:21→22:38)
[2016-09-16] MEDS: DOCUSATE SODIUM 50 MG/SENNA 8.6 MG TAB PO SCH ×2 (09:21→21:00)
[2016-09-16] MEDS: PANTOPRAZOLE SOD 40 MG DELAYED RELEASE TAB PO SCH (09:21)
[2016-09-16] MEDS: ASPIRIN EC 81 MG TABEC PO SCH (09:21)
[2016-09-16] MEDS: GABAPENTIN 300 MG CAP PO SCH (09:21)
[2016-09-16] MEDS: FUROSEMIDE 20 MG TAB PO SCH ×2 (09:21→22:51)
[2016-09-16] MEDS: hydrALAZINE HCL 100 MG TAB PO SCH ×3 (09:21→16:54)
[2016-09-16] MEDS: CARVEDILOL 12.5 MG TAB PO SCH ×2 (09:21→22:37)
[2016-09-16] MEDS: HEPARIN SODIUM - SQ 10,000 UNITS/ML VIAL SQ SCH ×2 (09:22→23:08)
--- NOTE | 2016-09-16 10:16 | HHI.PR ---
Subjective Remarks Follow up pneumonia, renal failure. Patient states that he feels "sluggish". Denies chest pain. Does report dyspnea. Objective Vitals Vital Signs Date Time Temp Pulse Resp B/P Pulse Ox O2 Delivery O2 Flow Rate FiO2 09/16/16 08:00 98.2 75 18 156/88 98 09/16/16 04:00 98.2 79 18 183/98 95 09/16/16 00:44 168/92 Automatic Cuff 09/16/16 00:33 98.7 79 16 184/79 98 09/15/16 20:46 82 09/15/16 20:00 98.4 83 18 190/97 99 09/15/16 17:31 21 09/15/16 16:00 98.5 71 18 169/91 97 09/15/16 14:29 18 09/15/16 12:00 98.4 77 17 187/88 97 I/O 09/15/16 09/15/16 09/15/16 09/16/16 09/16/16 09/16/16 07:00 15:00 23:00 07:00 15:00 23:00 Intake Total 240 ml 650 ml 750 ml Output Total 1000 ml 2200 ml 2200 ml Balance -760 ml -1550 ml -1450 ml Intake Oral 240 ml 650 ml 750 ml Output Urine Total 1000 ml 2200 ml 2200 ml # Bowel Movements 0 0 Result Diagram: 09/16/16 0530 09/16/16 0530 Imaging Last Impressions Renal Ultrasound 09/15/16 0000 Signed Impressions: Service Date/Time: Thursday, September 15, 2016 21:12 - CONCLUSION: 1. Prominent prostate. 2. Mild echogenic renal parenchyma again noted. Remigio Bill MD Chest X-Ray 09/14/16 1218 Signed Impressions: Service Date/Time: Wednesday, September 14, 2016 12:28 - CONCLUSION: Multilobar consolidation likely pneumonia. Paul Lala MD Objective Remarks General: No acute distress. Heart: Regular rate and rhythm. No murmur. Lungs: Clear to auscultation bilaterally. No wheezes, rales, or rhonchi. Breathing is nonlabored. Abdomen: Soft, nontender, nondistended. Extremities: 2+ bilateral lower extremity edema. Psych: Sleeping, but awakens and answers questions appropriately. Procedures None Urinary Catheter: No Vascular Central Line Catheter: No A/P Problem List: (1) Chest pain ICD Code: R07.9 Status: Acute (2) Pneumonia ICD Code: J18.9 Status: Acute (3) Hypertension ICD Code: I10 Status: Chronic (4) CAD (coronary artery disease) ICD Code: I25.10 Status: Acute (5) Leukocytosis ICD Code: D72.829 Status: Acute (6) Acute renal failure superimposed on chronic kidney disease ICD Code: N17.9 Status: Acute (7) Elevated troponin I level ICD Code: R74.8 Status: Acute (8) Hyperkalemia ICD Code: E87.5 Status: Acute (9) Secondary rhabdomyolysis ICD Code: M62.82 Status: Acute Assessment and Plan 1. Pneumonia: Continue supplemental oxygen, antibiotics, incentive spirometer. 2. Chest pain: Patient does have significant history of coronary artery disease , although the pain seems to be more musculoskeletal. Check serial cardiac enzymes and EKGs. Appreciate cardiology recommendations. Continue medical management. Monitor on telemetry. 3. Acute renal failure superimposed on chronic kidney disease stage IV: Appreciate nephrology recommendations. Creatinine decreased slightly today. Monitor labs. 4. Acute on chronic congestive heart failure, possibly diastolic: Check 2-D echocardiogram. Continue Lasix. 5. Hyperkalemia: Kayexalate given. Potassium improved. 6. Hypertension: Continue home medications. 7. GERD: Protonix. 8. DVT prophylaxis: Heparin. Problem Qualifiers (1) Pneumonia: Qualified Code: J18.9 - Pneumonia due to infectious organism, unspecified laterality, unspecified part of lung (2) Hypertension: Qualified Code: I10 - Hypertension, unspecified type (3) Acute renal failure superimposed on chronic kidney disease: Qualified Code: N17.9 - Acute renal failure superimposed on chronic kidney disease, unspecified CKD stage, unspecified acute renal failure type Timoteo Best MD Sep 16, 2016 10:16
--- NOTE | 2016-09-16 12:11 | PD.CARD.PN ---
Subjective Subjective Remarks asleep in nad Objective Vital Signs / I&O Vital Signs Date Time Temp Pulse Resp B/P Pulse Ox O2 Delivery O2 Flow Rate FiO2 09/16/16 08:00 98.2 75 18 156/88 98 09/16/16 04:00 98.2 79 18 183/98 95 09/16/16 00:44 168/92 Automatic Cuff 09/16/16 00:33 98.7 79 16 184/79 98 09/15/16 20:46 82 09/15/16 20:00 98.4 83 18 190/97 99 09/15/16 17:31 21 09/15/16 16:00 98.5 71 18 169/91 97 09/15/16 14:29 18 I/O 09/15/16 09/15/16 09/15/16 09/16/16 09/16/16 09/16/16 07:00 15:00 23:00 07:00 15:00 23:00 Intake Total 240 ml 650 ml 750 ml Output Total 1000 ml 2200 ml 2200 ml Balance -760 ml -1550 ml -1450 ml Intake Oral 240 ml 650 ml 750 ml Output Urine Total 1000 ml 2200 ml 2200 ml # Bowel Movements 0 0 Laboratory GENERAL: SKIN: Warm and dry. HEAD: Normocephalic. EYES: No scleral icterus. No injection or drainage. NECK: Supple, trachea midline. No JVD or lymphadenopathy. CARDIOVASCULAR: Regular rate and rhythm without murmurs, gallops, or rubs. RESPIRATORY: Breath sounds equal bilaterally. No accessory muscle use. GASTROINTESTINAL: Abdomen soft, non-tender, nondistended. MUSCULOSKELETAL: No cyanosis, or edema. BACK: Nontender without obvious deformity. No CVA tenderness. Laboratory Tests Test 09/16/16 05:30 White Blood Count 9.3 TH/MM3 Red Blood Count 2.66 MIL/MM3 Hemoglobin 8.6 GM/DL Hematocrit 26.0 % Mean Corpuscular Volume 97.6 FL Mean Corpuscular Hemoglobin 32.3 PG Mean Corpuscular Hemoglobin 33.1 % Concent Red Cell Distribution Width 14.1 % Platelet Count 239 TH/MM3 Mean Platelet Volume 8.3 FL Neutrophils (%) (Auto) 57.6 % Lymphocytes (%) (Auto) 28.6 % Monocytes (%) (Auto) 6.6 % Eosinophils (%) (Auto) 6.4 % Basophils (%) (Auto) 0.8 % Neutrophils # (Auto) 5.4 TH/MM3 Lymphocytes # (Auto) 2.7 TH/MM3 Monocytes # (Auto) 0.6 TH/MM3 Eosinophils # (Auto) 0.6 TH/MM3 Basophils # (Auto) 0.1 TH/MM3 CBC Comment DIFF FINAL Differential Comment Sodium Level 144 MEQ/L Potassium Level 5.0 MEQ/L Chloride Level 114 MEQ/L Carbon Dioxide Level 23.1 MEQ/L Anion Gap 7 MEQ/L Blood Urea Nitrogen 29 MG/DL Creatinine 3.85 MG/DL Estimat Glomerular Filtration 20 ML/MIN Rate Random Glucose 92 MG/DL Calcium Level 8.1 MG/DL Iron Level 47 MCG/DL Total Iron Binding Capacity 192 MCG/DL Percent Iron Saturation 24.5 % Ferritin 155 NG/ML Total Protein 5.0 GM/DL Parathyroid Hormone (Intact) 124.3 PG/ML Random Vancomycin Level 13.5 COMMENT Complement C3 101 MG/DL Complement C4 29 MG/DL Assessment and Plan Problem List: (1) Troponin level elevated (2) NSTEMI (non-ST elevated myocardial infarction) (3) Ztyyt-gz-ttcbalx kidney injury (4) Cardiac disease (5) CAD (coronary artery disease) (6) Hyperkalemia (7) CKD (chronic kidney disease) (8) Pneumonia (9) Chest pain (10) Anemia Assessment and Plan 1.) CAD - suspect elavted trop due to cri, chest pain due to pneumonia, i explained i cnnot r/o ischemic etiology without lhc which would be high risk for temporary or permanent dialysis; patient refuses. REC continue dapt due to acs, cad, coreg, lipitor, norvasc, hydralazine, add minoxidil for better bp control Problem Qualifiers (1) Pneumonia: Qualified Code: J18.9 - Pneumonia due to infectious organism, unspecified laterality, unspecified part of lung Keegan Rodriguez MD Sep 16, 2016 12:11
[2016-09-16] MEDS ORDERED: MINOXIDIL 2.5 MG TAB PO ONE (12:15)
[2016-09-16] MEDS ORDERED: VANCOMYCIN INJ 1,500 MG in SODIUM CHLORID 0.9% 500 ML INJ 500 ML IV ONE (13:00)
--- NOTE | 2016-09-16 15:34 | HHI.NPPN ---
Subjective History of Present Illness The patient is a 56 yo AA male who is known to our services for CKD. He presented to the ED on 09/14 with complaints of worsening CP and SOB for the past week. Also has worsening of chronic back pain and weakness in his legs. He has been dx with PNA and is being tx'd with IV abx. His renal functions on arrival are declined with SCr of 4.04 and eGFR of 19. Last outpatient renal functions in June show a SCr of 2.35 and eGFR 35. During previous admission, he had a renal biopsy done that showed severe interstitial fibrosis, severe arteriosclerosis, and severe hyalinosis without any immune deposits. His last known EF is 55-60%. Cardiology has evaluated the patient and they have opted against cardiac catheterization given severe renal impairment. Currently, the patient is complaining of back and leg pain along with some SOB. Denies any new medications recently, no illness, no NSAID use, no illicit drug use. Interval History Patient indicates that his lower extremity edema has improved since yesterday. Review of Systems Cardiovascular Cardiac: Edema Objective Data Data 09/15/16 09/16/16 19:00 07:00 Intake Total 1400 ml Output Total 4400 ml Balance -3000 ml Intake Oral 1400 ml Output Urine Total 4400 ml # Bowel Movements 0 Vital Signs Date Time Temp Pulse Resp B/P Pulse Ox O2 Delivery O2 Flow Rate FiO2 09/16/16 12:00 97.7 74 18 160/84 94 09/16/16 09:17 67 09/16/16 08:00 98.2 75 18 156/88 98 09/16/16 04:00 98.2 79 18 183/98 95 09/16/16 00:44 168/92 Automatic Cuff 09/16/16 00:33 98.7 79 16 184/79 98 09/15/16 20:46 82 09/15/16 20:00 98.4 83 18 190/97 99 09/15/16 17:31 21 09/15/16 16:00 98.5 71 18 169/91 97 -: 09/16/16 0530 09/16/16 0530 Physical Exam General Appearance: Well Developed, Well Nourished, No Acute Distress, Comfortable Eyes Eye Exam: Sclera White Neck Neck Exam: Trachea Midline Pulmonary Resp Exam: Clear Bilaterally, Breath Sounds Equal, No Distress Cardiology CV Exam: Regular, Normal Sinus Rhythm Gastrointestinal/Abdomen GI Exam: Soft, Non-Tender Integumentary Skin Exam: Clear, Warm, Dry Extremeties Extremities Exam: Moderate Edema, Pitting Edema (involving legs thighs and hands.) Assessment/Plan Discussed Condition With: Patient Problem List: (1) Acute renal failure superimposed on chronic kidney disease Plan: Uncertain as to the etiology of the patient's worsening renal function however his creatinine level has improved slightly today despite diuresis. Diuresis was necessary in view of fluid overload. Continue by mouth furosemide as ordered. Follow-up renal indices and volume status again tomorrow. Discussed again with the patient the severity of his renal decline. He may be trending towards dialysis in the upcoming weeks to months, and unfortunately his social issues may prove difficult in management. Will likely need case management consultation once we can see how his renal functions will respond within the coming days, especially if renal replacement therapy seems to be imminent. Agree with holding Losartan pending stabilization of renal function.. The patient will potentially benefit from an angiotensin receptor isaac long-term in view of the severity of his proteinuria however. Medications should be adjusted for the patient's renal dysfunction. Avoid nephrotoxic medications including NSAIDs and iodinated contrast dyes. Avoid gadolinium when eGFR <30. (2) Edema Plan: As above (3) Hypertension Plan: Agree with holding Losartan. Further adjustment in BP regimen may be required to keep BP <140/90 (4) Metabolic acidosis Plan: Improved with po bicarb. (5) Pneumonia Plan: Abx regimen as per primary team (6) Anemia Plan: Iron levels appear to be within normal range. 1 dose of Procrit today. Patient appears to have anemia of renal disease. Problem Qualifiers (1) Acute renal failure superimposed on chronic kidney disease: Qualified Code: N17.9 - Acute renal failure superimposed on chronic kidney disease, unspecified CKD stage, unspecified acute renal failure type (2) Hypertension: Qualified Code: I10 - Hypertension, unspecified type (3) Pneumonia: Qualified Code: J18.9 - Pneumonia due to infectious organism, unspecified laterality, unspecified part of lung Radha Marie MD Sep 16, 2016 15:34
[2016-09-16] MEDS ORDERED: EPOETIN ALFA 10,000 UNITS/ML VIAL SQ ONE (16:00)
[2016-09-16] MEDS: ACETAMINOPHEN 325 MG TAB PO PRN (16:54)
--- NOTE | 2016-09-16 17:38 | ECHRPT ---
Indication: CONCLUSIONS The left ventricular systolic function is normal with an estimated ejection fraction in the range of 60-65%. Mild concentric left ventricular hypertrophy. Sinus of Valsalva measures 3.97cm, which may be normal when indexed depending on the pt's BSA. Cannot rule out a bicuspid aortic valve or trileaflet valve with partially fused commissure, believe d to be bicuspid. Moderate thickening of the aortic valve leaflets. Noio-dz-yggocjap aortic valve regurgitation. BP: / HR: Rhythm: Sinus MEASUREMENTS (Male / Female) Normal Values Technical Quality:Good 2D ECHO LV Diastolic Diameter PLAX 5.2 cm 4.2 - 5.9 / 3.9 - 5.3 cm LV Systolic Diameter PLAX 3.7 cm IVS Diastolic Thickness 1.6 cm 0.6 - 1.0 / 0.6 - 0.9 cm LVPW Diastolic Thickness 1.2 cm 0.6 - 1.0 / 0.6 - 0.9 cm LV Relative Wall Thickness 0.5 RV Internal Dim ED PLAX 2.1 cm LA Systolic Diameter LX 3.7 cm 3.0 - 4.0 / 2.7 - 3.8 cm DOPPLER AV Peak Velocity 335.0 cm/s AV Peak Gradient 44.9 mmHg AV Mean Gradient 22.0 mmHg AV Velocity Time Integral 71.6 cm LVOT Peak Velocity 131.5 cm/s LVOT Peak Gradient 6.9 mmHg LVOT Velocity Time Integral 28.7 cm Mitral E Point Velocity 85.9 cm/s Mitral A Point Velocity 110.0 cm/s Mitral E to A Ratio 0.8 TR Peak Velocity 282.0 cm/s TR Peak Gradient 31.8 mmHg FINDINGS LEFT VENTRICLE Normal left ventricular size. Mild concentric left ventricular hypertrophy. The left ventricular systolic function is normal with an estimated ejection fraction in the range of 60-65%. RIGHT VENTRICLE Normal right ventricular size and systolic function. LEFT ATRIUM The left atrial size is normal. RIGHT ATRIUM The right atrial size is normal. ATRIAL SEPTUM Normal atrial septal thickness without atrial level shunting by limited color doppler interrogation. AORTA Sinus of Valsalva measures 3.97cm, which may be normal when indexed depending on the pt's BSA. MITRAL VALVE Structurally normal mitral valve. Trace mitral valve regurgitation. AORTIC VALVE Cannot rule out a bicuspid aortic valve or trileaflet valve with partially fused commissure. Moderate thickening of the aortic valve leaflets. Nxms-fn-fwojnvct aortic valve regurgitation. Aortic valve mean gradient is 22 mmHg. TRICUSPID VALVE Structurally normal tricuspid valve. No tricuspid valve stenosis or regurgitation. PULMONARY VALVE The pulmonary valve is not well visualized. VESSELS The inferior vena cava is normal in size. PERICARDIUM No pericardial effusion. Alxe Lopez DO (Electronically Signed) Final Date:16 September 2016 17:37
[2016-09-16 18:02] LABS: HEMATOCRIT 27.2 % (39.0-51.0); REVIEW FLAG FINAL
[2016-09-16 21:59] LABS: ALBUMIN SPE 2.01 GM/DL (3.50-5.00); ALPHA 1 GLOBULIN 0.28 GM/DL (0.11-0.29); ALPHA 2 GLOBULIN 1.12 GM/DL (0.22-1.00); BETA GLOBULINS (SPE) 0.74 GM/DL (0.53-1.03)
[2016-09-16] MEDS: ATORVASTATIN 80 MG TAB PO SCH (22:37)
[2016-09-16] MEDS: TAMSULOSIN HCL 0.4 MG CAP PO SCH (22:51)
[2016-09-16] MEDS: MIRTAZAPINE 15 MG TAB PO SCH (22:54)
[2016-09-17] VITALS (8 sets, daily range): BP systolic 146–173; BP diastolic 74–97; PULSE 75–84; RESP 16–22; TEMP 98–99; O2SAT 95–99
[2016-09-17] MEDS: SODIUM BICARBONATE 650 MG TAB PO SCH ×3 (05:58→22:25)
[2016-09-17] MEDS: PIPERACIL-TAZO 3.375 GM PREMIX 50 ML IV SCH ×3 (05:58→22:24)
[2016-09-17] MEDS: DOCUSATE SODIUM 50 MG/SENNA 8.6 MG TAB PO SCH ×2 (09:00→21:00)
[2016-09-17] MEDS: FUROSEMIDE 20 MG TAB PO SCH ×2 (09:56→22:24)
[2016-09-17] MEDS: CALCIUM/VITAMIN D 250 MG/125 U TAB PO SCH ×2 (09:56→22:26)
[2016-09-17] MEDS: CLOPIDOGREL 75 MG TAB PO SCH (09:57)
[2016-09-17] MEDS: CYCLOBENZAPRINE HCL 10 MG TAB PO SCH ×3 (09:57→17:11)
[2016-09-17] MEDS: GABAPENTIN 300 MG CAP PO SCH (09:57)
[2016-09-17] MEDS: MINOXIDIL 2.5 MG TAB PO SCH (09:57)
[2016-09-17] MEDS: ASPIRIN EC 81 MG TABEC PO SCH (09:57)
[2016-09-17 09:58] LABS: AUTOMATED NEUTROPHIL # 6.8 TH/MM3 (1.8-7.7); BASOPHIL # 0.1 TH/MM3 (0-0.2); BASOPHIL % 0.7 % (0.0-2.0); EOSINOPHIL # 0.6 TH/MM3 (0-0.4); EOSINOPHIL % 5.3 % (0.0-4.0); HEMATOCRIT 25.3 % (39.0-51.0); HEMO FLAGS DIFF FINAL; LYMPH % 25.9 % (9.0-44.0); LYMPHOCYTE # 2.8 TH/MM3 (1.0-4.8); MEAN CELL VOLUME 97.2 FL (80.0-100.0); MEAN CORPUSCULAR HEMOGLOBIN 33.7 PG (27.0-34.0); MEAN CORPUSCULAR HGB CONC 34.7 % (32.0-36.0); MONO % 5.4 % (0.0-8.0); NEUT % 62.7 % (16.0-70.0); PLATELET COUNT 223 TH/MM3 (150-450); RED CELL DISTRIBUTION WIDTH 14.3 % (11.6-17.2); WHITE BLOOD COUNT 10.8 TH/MM3 (4.0-11.0)
[2016-09-17] MEDS: PANTOPRAZOLE SOD 40 MG DELAYED RELEASE TAB PO SCH (09:58)
[2016-09-17] MEDS: hydrALAZINE HCL 100 MG TAB PO SCH ×3 (09:58→17:11)
[2016-09-17] MEDS: CARVEDILOL 12.5 MG TAB PO SCH ×2 (09:58→22:25)
[2016-09-17] MEDS: HEPARIN SODIUM - SQ 10,000 UNITS/ML VIAL SQ SCH ×2 (09:58→22:26)
[2016-09-17 10:34] LABS: BICARBONATE 23.2 MEQ/L (21.0-32.0); POTASSIUM 4.6 MEQ/L (3.5-5.1)
--- NOTE | 2016-09-17 14:30 | HHI.NPPN ---
Subjective History of Present Illness The patient is a 56 yo AA male who is known to our services for CKD. He presented to the ED on 09/14 with complaints of worsening CP and SOB for the past week. Also has worsening of chronic back pain and weakness in his legs. He has been dx with PNA and is being tx'd with IV abx. His renal functions on arrival are declined with SCr of 4.04 and eGFR of 19. Last outpatient renal functions in June show a SCr of 2.35 and eGFR 35. During previous admission, he had a renal biopsy done that showed severe interstitial fibrosis, severe arteriosclerosis, and severe hyalinosis without any immune deposits. His last known EF is 55-60%. Cardiology has evaluated the patient and they have opted against cardiac catheterization given severe renal impairment. Currently, the patient is complaining of back and leg pain along with some SOB. Denies any new medications recently, no illness, no NSAID use, no illicit drug use. Interval History Patient with no new verbal complaints. Review of Systems Cardiovascular Cardiac: Edema Objective Data Data 09/16/16 09/17/16 19:00 07:00 Intake Total 878 ml 280 ml Output Total 1325 ml Balance 878 ml -1045 ml Intake Oral 600 ml 280 ml IV Total 278 ml Output Urine Total 1325 ml # Voids 4 # Bowel Movements 1 0 Vital Signs Date Time Temp Pulse Resp B/P Pulse Ox O2 Delivery O2 Flow Rate FiO2 09/17/16 12:00 98.5 77 16 146/79 97 09/17/16 08:04 98.6 75 20 167/91 95 09/17/16 04:00 99.0 80 22 164/80 95 09/17/16 00:00 98.0 84 22 173/97 99 09/16/16 20:18 79 09/16/16 20:00 98.4 80 19 177/88 97 09/16/16 16:00 97.7 76 18 162/90 100 -: 09/17/16 0635 09/17/16 0635 Physical Exam General Appearance: Well Developed, Well Nourished, No Acute Distress, Comfortable Eyes Eye Exam: Sclera White Neck Neck Exam: Trachea Midline Pulmonary Resp Exam: Clear Bilaterally, Breath Sounds Equal, No Distress Cardiology CV Exam: Regular, Normal Sinus Rhythm Gastrointestinal/Abdomen GI Exam: Soft, Non-Tender Integumentary Skin Exam: Clear, Warm, Dry Extremeties Extremities Exam: Moderate Edema, Pitting Edema (involving legs thighs and hands.) Assessment/Plan Discussed Condition With: Patient Problem List: (1) Acute renal failure superimposed on chronic kidney disease Plan: Patient's renal indices have remained stable since yesterday. This may represent his new baseline level. I discussed with the patient again the severity of his renal insufficiency and the likelihood that he will require dialysis in the not too distant future possibly within the next 6-12 months if not sooner. I spoke to the case management manager to try and determine whether not this patient would qualify for any kind of insurance as he will need intense medical follow-up and management and ultimately dialytic support. This was also conveyed to the patient. Medications should be adjusted for the patient's estimated GFR if clinically indicated. Avoid agents with significant potential for nephrotoxicity possible including NSAIDs for analgesia, iodine contrast agents. Gadolinium is contraindicated if the GFR is below 30. (2) Edema Plan: Additional dose of IV bumetanide 1. Continue by mouth furosemide. (3) Hypertension Plan: With a history of proteinuria the patient will likely derive some benefit from the presence of an angiotensin receptor isaac to slow down the progression of his CKD and reduce proteinuria. We'll try a small dose of 25 mg losartan daily with monitoring of potassium. Hopefully hyperkalemia will not recur. (4) Metabolic acidosis Plan: Improved with po bicarb. (5) Pneumonia Plan: Abx regimen as per primary team (6) Anemia Plan: Iron levels appear to be within normal range. 1 dose of Procrit today. Patient appears to have anemia of renal disease. Problem Qualifiers (1) Acute renal failure superimposed on chronic kidney disease: Qualified Code: N17.9 - Acute renal failure superimposed on chronic kidney disease, unspecified CKD stage, unspecified acute renal failure type (2) Hypertension: Qualified Code: I10 - Hypertension, unspecified type (3) Pneumonia: Qualified Code: J18.9 - Pneumonia due to infectious organism, unspecified laterality, unspecified part of lung Radha Marie MD Sep 17, 2016 14:30
--- NOTE | 2016-09-17 14:41 | HHI.PR ---
Subjective Remarks Follow-up pneumonia, renal failure. Patient complaining of headache. Reports left-sided chest pressure. This is the same chest pain that was present on admission and has been present intermittently for the past year. Objective Vitals Vital Signs Date Time Temp Pulse Resp B/P Pulse Ox O2 Delivery O2 Flow Rate FiO2 09/17/16 12:00 98.5 77 16 146/79 97 09/17/16 08:04 98.6 75 20 167/91 95 09/17/16 04:00 99.0 80 22 164/80 95 09/17/16 00:00 98.0 84 22 173/97 99 09/16/16 20:18 79 09/16/16 20:00 98.4 80 19 177/88 97 09/16/16 16:00 97.7 76 18 162/90 100 I/O 09/16/16 09/16/16 09/16/16 09/17/16 09/17/16 09/17/16 07:00 15:00 23:00 07:00 15:00 23:00 Intake Total 750 ml 600 ml 278 ml 280 ml Output Total 2200 ml 500 ml 825 ml Balance -1450 ml 600 ml -222 ml -545 ml Intake Oral 750 ml 600 ml 280 ml IV Total 278 ml Output Urine Total 2200 ml 500 ml 825 ml # Voids 4 # Bowel Movements 0 1 0 Result Diagram: 09/17/16 0635 09/17/16 0635 Imaging Last Impressions Renal Ultrasound 09/15/16 0000 Signed Impressions: Service Date/Time: Thursday, September 15, 2016 21:12 - CONCLUSION: 1. Prominent prostate. 2. Mild echogenic renal parenchyma again noted. Remigio Bill MD Chest X-Ray 09/14/16 1218 Signed Impressions: Service Date/Time: Wednesday, September 14, 2016 12:28 - CONCLUSION: Multilobar consolidation likely pneumonia. Paul Lala MD Objective Remarks General: No acute distress. Heart: Regular rate and rhythm. No murmur. Lungs: Clear to auscultation bilaterally. No wheezes, rales, or rhonchi. Breathing is nonlabored. Abdomen: Soft, nontender, nondistended. Extremities: 2+ bilateral lower extremity edema. Psych: Alert and oriented. Procedures None Urinary Catheter: No Vascular Central Line Catheter: No A/P Problem List: (1) Chest pain ICD Code: R07.9 Status: Acute (2) Pneumonia ICD Code: J18.9 Status: Acute (3) Hypertension ICD Code: I10 Status: Chronic (4) CAD (coronary artery disease) ICD Code: I25.10 Status: Acute (5) Leukocytosis ICD Code: D72.829 Status: Acute (6) Acute renal failure superimposed on chronic kidney disease ICD Code: N17.9 Status: Acute (7) Elevated troponin I level ICD Code: R74.8 Status: Acute (8) Hyperkalemia ICD Code: E87.5 Status: Acute (9) Secondary rhabdomyolysis ICD Code: M62.82 Status: Acute Assessment and Plan 1. Pneumonia: Continue supplemental oxygen, antibiotics, incentive spirometer. 2. Chest pain: Patient does have significant history of coronary artery disease , although the pain seems to be more musculoskeletal. Check serial cardiac enzymes and EKGs. Appreciate cardiology recommendations. Continue medical management. Monitor on telemetry. 3. Acute renal failure superimposed on chronic kidney disease stage IV: Appreciate nephrology recommendations. Creatinine remains elevated. Monitor labs. 4. Acute on chronic congestive heart failure, possibly diastolic: Continue Lasix. Echocardiogram shows ejection fraction 60-65% with mild concentric left ventricular hypertrophy. 5. Hyperkalemia: Resolved. 6. Hypertension: Continue amlodipine, carvedilol, hydralazine. Minoxidil added by cardiology. Losartan added by nephrology. 7. GERD: Protonix. 8. DVT prophylaxis: Heparin. Problem Qualifiers (1) Pneumonia: Qualified Code: J18.9 - Pneumonia due to infectious organism, unspecified laterality, unspecified part of lung (2) Hypertension: Qualified Code: I10 - Hypertension, unspecified type (3) Acute renal failure superimposed on chronic kidney disease: Qualified Code: N17.9 - Acute renal failure superimposed on chronic kidney disease, unspecified CKD stage, unspecified acute renal failure type Timoteo Best MD Sep 17, 2016 14:41
[2016-09-17] MEDS ORDERED: ACETAMINOPHEN/HYDROcodone 325 MG/5 MG TAB PO PRN (14:45)
--- NOTE | 2016-09-17 16:38 | PD.CARD.PN ---
Subjective Subjective Remarks alert in nad Objective Vital Signs / I&O Vital Signs Date Time Temp Pulse Resp B/P Pulse Ox O2 Delivery O2 Flow Rate FiO2 09/17/16 16:00 98.3 84 16 155/74 96 09/17/16 12:00 98.5 77 16 146/79 97 09/17/16 08:04 98.6 75 20 167/91 95 09/17/16 07:56 78 09/17/16 04:00 99.0 80 22 164/80 95 09/17/16 00:00 98.0 84 22 173/97 99 09/16/16 20:18 79 09/16/16 20:00 98.4 80 19 177/88 97 I/O 09/16/16 09/16/16 09/16/16 09/17/16 09/17/16 09/17/16 07:00 15:00 23:00 07:00 15:00 23:00 Intake Total 750 ml 600 ml 278 ml 280 ml 1082 ml Output Total 2200 ml 500 ml 825 ml Balance -1450 ml 600 ml -222 ml -545 ml 1082 ml Intake Oral 750 ml 600 ml 280 ml 840 ml IV Total 278 ml 242 ml Output Urine Total 2200 ml 500 ml 825 ml # Voids 4 4 # Bowel Movements 0 1 0 1 Physical Exam GENERAL: SKIN: Warm and dry. HEAD: Normocephalic. EYES: No scleral icterus. No injection or drainage. NECK: Supple, trachea midline. No JVD or lymphadenopathy. CARDIOVASCULAR: Regular rate and rhythm without murmurs, gallops, or rubs. RESPIRATORY: Breath sounds equal bilaterally. No accessory muscle use. GASTROINTESTINAL: Abdomen soft, non-tender, nondistended. MUSCULOSKELETAL: No cyanosis, or edema. BACK: Nontender without obvious deformity. No CVA tenderness. Laboratory Laboratory Tests Test 09/16/16 09/17/16 17:33 06:35 Hemoglobin 9.2 GM/DL 8.8 GM/DL Hematocrit 27.2 % 25.3 % White Blood Count 10.8 TH/MM3 Red Blood Count 2.60 MIL/MM3 Mean Corpuscular Volume 97.2 FL Mean Corpuscular Hemoglobin 33.7 PG Mean Corpuscular Hemoglobin 34.7 % Concent Red Cell Distribution Width 14.3 % Platelet Count 223 TH/MM3 Mean Platelet Volume 8.7 FL Neutrophils (%) (Auto) 62.7 % Lymphocytes (%) (Auto) 25.9 % Monocytes (%) (Auto) 5.4 % Eosinophils (%) (Auto) 5.3 % Basophils (%) (Auto) 0.7 % Neutrophils # (Auto) 6.8 TH/MM3 Lymphocytes # (Auto) 2.8 TH/MM3 Monocytes # (Auto) 0.6 TH/MM3 Eosinophils # (Auto) 0.6 TH/MM3 Basophils # (Auto) 0.1 TH/MM3 CBC Comment DIFF FINAL Differential Comment Sodium Level 143 MEQ/L Potassium Level 4.6 MEQ/L Chloride Level 111 MEQ/L Carbon Dioxide Level 23.2 MEQ/L Anion Gap 9 MEQ/L Blood Urea Nitrogen 25 MG/DL Creatinine 3.83 MG/DL Estimat Glomerular Filtration 20 ML/MIN Rate Random Glucose 73 MG/DL Calcium Level 7.6 MG/DL Random Vancomycin Level 22.3 COMMENT Assessment and Plan Problem List: (1) Troponin level elevated (2) NSTEMI (non-ST elevated myocardial infarction) (3) Oycie-bi-qrqbgap kidney injury (4) Cardiac disease (5) CAD (coronary artery disease) (6) Hyperkalemia (7) CKD (chronic kidney disease) (8) Pneumonia (9) Chest pain (10) Anemia Assessment and Plan 1.) CAD - suspect elavted trop due to cri, chest pain due to pneumonia, i explained i cnnot r/o ischemic etiology without lhc which would be high risk for temporary or permanent dialysis; patient refuses. REC continue dapt due to acs, cad, coreg, lipitor, norvasc, hydralazine, add minoxidil for better bp control Problem Qualifiers (1) Pneumonia: Qualified Code: J18.9 - Pneumonia due to infectious organism, unspecified laterality, unspecified part of lung Keegan Rodriguez MD Sep 17, 2016 16:38
[2016-09-17] MEDS: LOSARTAN 25 MG TAB PO SCH (17:11)
[2016-09-17] MEDS: ACETAMINOPHEN/HYDROcodone 325 MG/10 MG TAB PO PRN (17:12)
[2016-09-17] MEDS: ATORVASTATIN 80 MG TAB PO SCH (22:25)
[2016-09-17] MEDS: TAMSULOSIN HCL 0.4 MG CAP PO SCH (22:25)
[2016-09-17] MEDS: MIRTAZAPINE 15 MG TAB PO SCH (22:26)
[2016-09-18] VITALS (10 sets, daily range): BP systolic 126–154; BP diastolic 66–97; PULSE 71–88; RESP 16–18; TEMP 97.8–98.7; O2SAT 95–98
[2016-09-18] MEDS: ACETAMINOPHEN/HYDROcodone 325 MG/10 MG TAB PO PRN ×4 (00:05→20:36)
[2016-09-18 05:41] LABS: POTASSIUM 4.4 MEQ/L (3.5-5.1)
[2016-09-18] MEDS: SODIUM BICARBONATE 650 MG TAB PO SCH ×3 (06:25→20:36)
[2016-09-18] MEDS: PIPERACIL-TAZO 3.375 GM PREMIX 50 ML IV SCH ×2 (06:25→14:13)
[2016-09-18] MEDS: FUROSEMIDE 20 MG TAB PO SCH ×2 (08:57→20:35)
[2016-09-18] MEDS: LOSARTAN 25 MG TAB PO SCH (08:58)
[2016-09-18] MEDS: PANTOPRAZOLE SOD 40 MG DELAYED RELEASE TAB PO SCH (08:58)
[2016-09-18] MEDS: CALCIUM/VITAMIN D 250 MG/125 U TAB PO SCH ×2 (08:58→20:35)
[2016-09-18] MEDS: CLOPIDOGREL 75 MG TAB PO SCH (08:58)
[2016-09-18] MEDS: MINOXIDIL 2.5 MG TAB PO SCH (08:58)
[2016-09-18] MEDS: hydrALAZINE HCL 100 MG TAB PO SCH ×3 (08:59→17:14)
[2016-09-18] MEDS: CYCLOBENZAPRINE HCL 10 MG TAB PO SCH ×3 (09:00→17:13)
[2016-09-18] MEDS: HEPARIN SODIUM - SQ 10,000 UNITS/ML VIAL SQ SCH ×2 (09:00→20:37)
[2016-09-18] MEDS: ASPIRIN EC 81 MG TABEC PO SCH (09:00)
[2016-09-18] MEDS: CARVEDILOL 12.5 MG TAB PO SCH ×2 (09:00→20:35)
[2016-09-18] MEDS: GABAPENTIN 300 MG CAP PO SCH (09:00)
[2016-09-18] MEDS: DOCUSATE SODIUM 50 MG/SENNA 8.6 MG TAB PO SCH ×2 (09:00→20:37)
--- NOTE | 2016-09-18 10:17 | HHI.NPPN ---
Subjective History of Present Illness The patient is a 56 yo AA male who is known to our services for CKD. He presented to the ED on 09/14 with complaints of worsening CP and SOB for the past week. Also has worsening of chronic back pain and weakness in his legs. He has been dx with PNA and is being tx'd with IV abx. His renal functions on arrival are declined with SCr of 4.04 and eGFR of 19. Last outpatient renal functions in June show a SCr of 2.35 and eGFR 35. During previous admission, he had a renal biopsy done that showed severe interstitial fibrosis, severe arteriosclerosis, and severe hyalinosis without any immune deposits. His last known EF is 55-60%. Cardiology has evaluated the patient and they have opted against cardiac catheterization given severe renal impairment. Currently, the patient is complaining of back and leg pain along with some SOB. Denies any new medications recently, no illness, no NSAID use, no illicit drug use. Interval History Pt overall feeling same. Still with generalized pain. Review of Systems Cardiovascular Cardiac: Edema Objective Data Data 09/17/16 09/18/16 19:00 07:00 Intake Total 1082 ml 1700 ml Output Total 4200 ml Balance 1082 ml -2500 ml Intake Oral 840 ml 1700 ml IV Total 242 ml Output Urine Total 4200 ml # Voids 4 # Bowel Movements 1 0 Vital Signs Date Time Temp Pulse Resp B/P Pulse Ox O2 Delivery O2 Flow Rate FiO2 09/18/16 08:05 98.6 71 18 152/74 95 09/18/16 04:00 98.7 80 18 153/81 98 09/18/16 00:27 98.5 88 16 145/97 97 09/17/16 20:00 Room Air 09/17/16 20:00 98.7 81 18 151/84 97 09/17/16 17:47 96 Nasal Cannula 3.00 09/17/16 16:00 98.3 84 16 155/74 96 09/17/16 16:00 Room Air 09/17/16 12:00 98.5 77 16 146/79 97 09/17/16 12:00 Room Air -: 09/17/16 0635 09/18/16 0327 Imaging Last Impressions Renal Ultrasound 09/15/16 0000 Signed Impressions: Service Date/Time: Thursday, September 15, 2016 21:12 - CONCLUSION: 1. Prominent prostate. 2. Mild echogenic renal parenchyma again noted. Remigio Bill MD Chest X-Ray 09/14/16 1218 Signed Impressions: Service Date/Time: Wednesday, September 14, 2016 12:28 - CONCLUSION: Multilobar consolidation likely pneumonia. Paul Lala MD Medication Review Current Medications Medications (Trade) Dose Ordered Sig/Ramakrishna Route Start Time Stop Time Status Last Admin (NS Flush) 2 ml UNSCH PRN IVF 09/14/16 12:30 09/14/16 21:49 (Tylenol) 650 mg Q4H PRN PO 09/14/16 17:00 09/16/16 16:54 (Zofran Inj) 4 mg Q6H PRN IVP 09/14/16 17:00 (Heparin Inj) 5,000 units Q12H SQ 09/14/16 20:00 09/18/16 09:00 (Narcan Inj) 0.4 mg UNSCH PRN IV 09/14/16 17:00 (Kasey-Colace) 1 tab BID PO 09/14/16 21:00 09/16/16 09:21 (Milk Of Magnesia Liq) 30 ml Q12H PRN PO 09/14/16 17:00 (Senokot) 17.2 mg Q12H PRN PO 09/14/16 17:00 (Dulcolax Supp) 10 mg DAILY PRN RECTAL 09/14/16 17:00 Lactulose 30 ml 30 ml DAILY PRN PO 09/14/16 17:00 Pharmacy Profile Note 0 ml @ 0 mls/hr UNSCH OTHER 09/14/16 17:00 (Zosyn 3.375 Gm Premix) 50 ml @ 100 mls/hr Q8H IV 09/14/16 22:00 09/18/16 06:25 (Norvasc) 10 mg DAILY PO 09/15/16 09:00 09/18/16 08:58 (Ecotrin Ec) 81 mg DAILY PO 09/15/16 09:00 09/18/16 09:00 (Lipitor) 80 mg HS PO 09/14/16 21:00 09/17/16 22:25 (Plavix) 75 mg DAILY PO 09/15/16 09:00 09/18/16 08:58 (Flexeril) 10 mg TID PO 09/14/16 18:00 09/18/16 09:00 (Apresoline) 100 mg TID PO 09/14/16 18:00 09/18/16 08:59 (Remeron) 15 mg HS PO 09/14/16 21:00 09/17/16 22:26 (Protonix) 40 mg DAILY PO 09/15/16 09:00 09/18/16 08:58 (Flomax) 0.4 mg HS PO 09/14/16 21:00 09/17/16 22:25 (Sodium Bicarbonate) 650 mg Q8HR PO 09/14/16 18:15 09/18/16 06:25 (Oscal-D 250-125) 500 mg BID PO 09/14/16 21:00 09/18/16 08:58 (Neurontin) 600 mg DAILY PO 09/16/16 09:00 09/18/16 09:00 (Coreg) 12.5 mg BID PO 09/16/16 09:00 09/18/16 09:00 (Loniten) 2.5 mg DAILY PO 09/17/16 09:00 09/18/16 08:58 (Lasix) 40 mg BID PO 09/16/16 21:00 09/18/16 08:57 (Cozaar) 25 mg DAILY PO 09/17/16 17:00 09/18/16 08:58 (Mode 5-325 Mg) 1 tab Q6H PRN PO 09/17/16 14:45 (Mode 10-325 Mg) 1 tab Q6H PRN PO 09/17/16 14:45 09/18/16 06:26 Physical Exam General Appearance: Well Developed, Well Nourished, No Acute Distress, Comfortable Eyes Eye Exam: Sclera White Neck Neck Exam: Trachea Midline Pulmonary Resp Exam: Clear Bilaterally, Breath Sounds Equal, No Distress Cardiology CV Exam: Regular, Normal Sinus Rhythm, Murmur Gastrointestinal/Abdomen GI Exam: Soft, Non-Tender Integumentary Skin Exam: Clear, Warm, Dry Extremeties Extremities Exam: Moderate Edema (improving), Pitting Edema Neurologic Neuro Exam: Alert, Awake Psychiatric Psych Exam: Appropriate Responses Assessment/Plan Discussed Condition With: Patient Problem List: (1) Acute renal failure superimposed on chronic kidney disease Plan: Renal functions slightly worse today, but overall stable since admission. I discussed with the patient again the severity of his renal insufficiency and the likelihood that he will require dialysis in the not too distant future possibly within the next 6-12 months if not sooner. Appreciate CM assistance with the patient regarding health insurance. Medications should be adjusted for the patient's estimated GFR if clinically indicated. Avoid agents with significant potential for nephrotoxicity possible including NSAIDs for analgesia, iodine contrast agents. Gadolinium is contraindicated if the GFR is below 30. (2) Edema Plan: Continue on po Lasix 40mg BID as volume status improved (3) Hypertension Plan: BP trending down. Continue on current regimen. (4) Metabolic acidosis Plan: Improved with po bicarb. (5) Pneumonia Plan: Abx regimen as per primary team (6) Anemia Plan: s/p Procrit x1 Patient appears to have anemia of renal disease. (7) Vitamin D deficiency Plan: Start on Ergocalciferol Problem Qualifiers (1) Acute renal failure superimposed on chronic kidney disease: Qualified Code: N17.9 - Acute renal failure superimposed on chronic kidney disease, unspecified CKD stage, unspecified acute renal failure type (2) Hypertension: Qualified Code: I10 - Hypertension, unspecified type (3) Pneumonia: Qualified Code: J18.9 - Pneumonia due to infectious organism, unspecified laterality, unspecified part of lung Kelley oLra Sep 18, 2016 10:17
--- NOTE | 2016-09-18 10:21 | HHI.PR ---
Objective Vitals Vital Signs Date Time Temp Pulse Resp B/P Pulse Ox O2 Delivery O2 Flow Rate FiO2 09/18/16 08:05 98.6 71 18 152/74 95 09/18/16 04:00 98.7 80 18 153/81 98 09/18/16 00:27 98.5 88 16 145/97 97 09/17/16 20:00 Room Air 09/17/16 20:00 98.7 81 18 151/84 97 09/17/16 17:47 96 Nasal Cannula 3.00 09/17/16 16:00 98.3 84 16 155/74 96 09/17/16 16:00 Room Air 09/17/16 12:00 98.5 77 16 146/79 97 09/17/16 12:00 Room Air I/O 09/17/16 09/17/16 09/17/16 09/18/16 09/18/16 09/18/16 07:00 15:00 23:00 07:00 15:00 23:00 Intake Total 280 ml 1082 ml 800 ml 900 ml Output Total 825 ml 2200 ml 2000 ml Balance -545 ml 1082 ml -1400 ml -1100 ml Intake Oral 280 ml 840 ml 800 ml 900 ml IV Total 242 ml Output Urine Total 825 ml 2200 ml 2000 ml # Voids 4 # Bowel Movements 0 1 0 0 Result Diagram: 09/17/16 0635 09/18/16 0327 Procedures None Khalif Moraes MD Sep 18, 2016 10:21 (1) Chest pain ICD Code: R07.9 Status: Acute (2) Pneumonia ICD Code: J18.9 Status: Acute (3) Hypertension ICD Code: I10 Status: Chronic (4) CAD (coronary artery disease) ICD Code: I25.10 Status: Acute (5) Leukocytosis ICD Code: D72.829 Status: Acute (6) Acute renal failure superimposed on chronic kidney disease ICD Code: N17.9 Status: Acute (7) Elevated troponin I level ICD Code: R74.8 Status: Acute (8) Hyperkalemia ICD Code: E87.5 Status: Acute (9) Secondary rhabdomyolysis ICD Code: M62.82 Status: Acute Assessment and Plan 56 years old male 1. Pneumonia: Continue supplemental oxygen, antibiotics, incentive spirometer. 2. Chest pain: Patient does have significant history of coronary artery disease , although the pain seems to be more musculoskeletal. Check serial cardiac enzymes and EKGs. Appreciate cardiology recommendations. Continue medical management. Monitor on telemetry. 3. Acute renal failure superimposed on chronic kidney disease stage IV: Appreciate nephrology recommendations. Creatinine remains elevated. Monitor labs. 4. Acute on chronic congestive heart failure, possibly diastolic: Continue Lasix. Echocardiogram shows ejection fraction 60-65% with mild concentric left ventricular hypertrophy. 5. Hyperkalemia: Resolved. 6. Hypertension: Continue amlodipine, carvedilol, hydralazine. Minoxidil added by cardiology. Losartan added by nephrology. 7. GERD: Protonix. 8. DVT prophylaxis: Heparin. Problem Qualifiers (1) Pneumonia: Qualified Code: J18.9 - Pneumonia due to infectious organism, unspecified laterality, unspecified part of lung (2) Hypertension: Qualified Code: I10 - Hypertension, unspecified type (3) Acute renal failure superimposed on chronic kidney disease: Qualified Code: N17.9 - Acute renal failure superimposed on chronic kidney disease, unspecified CKD stage, unspecified acute renal failure type Khalif oMraes MD Sep 18, 2016 10:21
--- NOTE | 2016-09-18 10:36 | HHI.PR ---
Subjective Remarks no chest pains or shortness of breath feels chills but no fever, generalized body aches still bringing up grayish sputum still making urine, soft loose stools po 100%, no nausea or vomiting states having loose stools Objective Vitals Vital Signs Date Time Temp Pulse Resp B/P Pulse Ox O2 Delivery O2 Flow Rate FiO2 09/18/16 08:05 98.6 71 18 152/74 95 09/18/16 04:00 98.7 80 18 153/81 98 09/18/16 00:27 98.5 88 16 145/97 97 09/17/16 20:00 Room Air 09/17/16 20:00 98.7 81 18 151/84 97 09/17/16 17:47 96 Nasal Cannula 3.00 09/17/16 16:00 98.3 84 16 155/74 96 09/17/16 16:00 Room Air 09/17/16 12:00 98.5 77 16 146/79 97 09/17/16 12:00 Room Air I/O 09/17/16 09/17/16 09/17/16 09/18/16 09/18/16 09/18/16 07:00 15:00 23:00 07:00 15:00 23:00 Intake Total 280 ml 1082 ml 800 ml 900 ml Output Total 825 ml 2200 ml 2000 ml Balance -545 ml 1082 ml -1400 ml -1100 ml Intake Oral 280 ml 840 ml 800 ml 900 ml IV Total 242 ml Output Urine Total 825 ml 2200 ml 2000 ml # Voids 4 # Bowel Movements 0 1 0 0 Result Diagram: 09/17/16 0635 09/18/16 0327 Imaging Last Impressions Renal Ultrasound 09/15/16 0000 Signed Impressions: Service Date/Time: Thursday, September 15, 2016 21:12 - CONCLUSION: 1. Prominent prostate. 2. Mild echogenic renal parenchyma again noted. Remigio Bill MD Chest X-Ray 09/14/16 1218 Signed Impressions: Service Date/Time: Wednesday, September 14, 2016 12:28 - CONCLUSION: Multilobar consolidation likely pneumonia. Paul Lala MD Objective Remarks awake and alert, NAD anicteric lungs no rales or wheezes regular rhythm abdomen soft, nontender trace pretibial edema neuro exam- non focal Procedures None A/P Problem List: (1) Chest pain ICD Code: R07.9 Status: Acute (2) Pneumonia ICD Code: J18.9 Status: Acute (3) Hypertension ICD Code: I10 Status: Chronic (4) CAD (coronary artery disease) ICD Code: I25.10 Status: Acute (5) Leukocytosis ICD Code: D72.829 Status: Acute (6) Acute renal failure superimposed on chronic kidney disease ICD Code: N17.9 Status: Acute (7) Elevated troponin I level ICD Code: R74.8 Status: Acute (8) Hyperkalemia ICD Code: E87.5 Status: Acute (9) Secondary rhabdomyolysis ICD Code: M62.82 Status: Acute Assessment and Plan 56 years old male Sepsis secondary to Staph coag negative secondary Pneumonia: Continue supplemental oxygen, antibiotics, incentive spirometer. -09/17- blood culture + for Gram + cocci and pairs changed to staph coag negative - repeat blood cultures and CBC now. - check sputum gram stain and culture -continue on Zosyn for now -get ID consult for recommendation Chest pain with History of CAD. HTN: uncontrolled- slightly better systolic readings CHF- acute on chronic-- diastolic dysfunction SOB improved -no complains today. encourage to increase activity as tolerated -pain seems to be more musculoskeletal. -slightly elevated enzymes from [facility] -Appreciate cardiology recommendations. -Continue medical management.- Plavix, Lasix 40 mg po bid, coreg, Cozaar, Hydralazine, Minoxidil. monitor and adjust Acute renal failure superimposed on chronic kidney disease stage IV: Appreciate nephrology recommendations. worsening renal functions Hyperkalemia: Resolved.MOnitor Reported diarrhea= ff. stools studies ordered GERD: Protonix. DVT prophylaxis: Heparin. Problem Qualifiers (1) Pneumonia: Qualified Code: J18.9 - Pneumonia due to infectious organism, unspecified laterality, unspecified part of lung (2) Hypertension: Qualified Code: I10 - Hypertension, unspecified type (3) Acute renal failure superimposed on chronic kidney disease: Qualified Code: N17.9 - Acute renal failure superimposed on chronic kidney disease, unspecified CKD stage, unspecified acute renal failure type Khalif Moraes MD Sep 18, 2016 10:36
[2016-09-18] MEDS ORDERED: ERGOCALCIFEROL (VIT D2) 50,000 UNIT CAP PO SCH (11:00)
--- NOTE | 2016-09-18 11:51 | PD.CARD.PN ---
Subjective Subjective Remarks asleep in nad Objective Vital Signs / I&O Vital Signs Date Time Temp Pulse Resp B/P Pulse Ox O2 Delivery O2 Flow Rate FiO2 09/18/16 10:59 97 Room Air 09/18/16 08:05 98.6 71 18 152/74 95 09/18/16 04:00 98.7 80 18 153/81 98 09/18/16 00:27 98.5 88 16 145/97 97 09/17/16 20:00 Room Air 09/17/16 20:00 98.7 81 18 151/84 97 09/17/16 17:47 96 Nasal Cannula 3.00 09/17/16 16:00 98.3 84 16 155/74 96 09/17/16 16:00 Room Air 09/17/16 12:00 98.5 77 16 146/79 97 09/17/16 12:00 Room Air I/O 09/17/16 09/17/16 09/17/16 09/18/16 09/18/16 09/18/16 07:00 15:00 23:00 07:00 15:00 23:00 Intake Total 280 ml 1082 ml 800 ml 900 ml Output Total 825 ml 2200 ml 2000 ml Balance -545 ml 1082 ml -1400 ml -1100 ml Intake Oral 280 ml 840 ml 800 ml 900 ml IV Total 242 ml Output Urine Total 825 ml 2200 ml 2000 ml # Voids 4 # Bowel Movements 0 1 0 0 Physical Exam GENERAL: SKIN: Warm and dry. HEAD: Normocephalic. EYES: No scleral icterus. No injection or drainage. NECK: Supple, trachea midline. No JVD or lymphadenopathy. CARDIOVASCULAR: Regular rate and rhythm without murmurs, gallops, or rubs. RESPIRATORY: Breath sounds equal bilaterally. No accessory muscle use. GASTROINTESTINAL: Abdomen soft, non-tender, nondistended. MUSCULOSKELETAL: No cyanosis, or edema. BACK: Nontender without obvious deformity. No CVA tenderness. Laboratory Laboratory Tests Test 09/18/16 03:27 Sodium Level 142 MEQ/L Potassium Level 4.4 MEQ/L Chloride Level 110 MEQ/L Carbon Dioxide Level 24.0 MEQ/L Anion Gap 8 MEQ/L Blood Urea Nitrogen 24 MG/DL Creatinine 4.03 MG/DL Estimat Glomerular Filtration 19 ML/MIN Rate Random Glucose 76 MG/DL Calcium Level 8.0 MG/DL Phosphorus Level 5.3 MG/DL Albumin 1.6 GM/DL Random Vancomycin Level 17.1 COMMENT Assessment and Plan Problem List: (1) Troponin level elevated (2) NSTEMI (non-ST elevated myocardial infarction) (3) Kekhm-fo-xjkecoy kidney injury (4) Cardiac disease (5) CAD (coronary artery disease) (6) Hyperkalemia (7) CKD (chronic kidney disease) (8) Pneumonia (9) Chest pain (10) Anemia Assessment and Plan 1.) CAD - suspect elavted trop due to cri, chest pain due to pneumonia, i explained i cnnot r/o ischemic etiology without lhc which would be high risk for temporary or permanent dialysis; patient refuses. REC continue dapt due to acs, cad, coreg, lipitor, norvasc, hydralazine, add minoxidil for better bp control 2.) HTN - improving, on losartan now, defer continuation to nephrology based on risks/benefits ratio in context of cri Problem Qualifiers (1) Pneumonia: Qualified Code: J18.9 - Pneumonia due to infectious organism, unspecified laterality, unspecified part of lung Keegan Rodriguez MD Sep 18, 2016 11:51
[2016-09-18 15:39] LABS: AUTOMATED NEUTROPHIL # 6.3 TH/MM3 (1.8-7.7); BASOPHIL # 0.1 TH/MM3 (0-0.2); EOSINOPHIL # 0.6 TH/MM3 (0-0.4); HEMATOCRIT 28.6 % (39.0-51.0); HEMO FLAGS DIFF FINAL; LYMPH % 29.1 % (9.0-44.0); LYMPHOCYTE # 3.1 TH/MM3 (1.0-4.8); MEAN CELL VOLUME 97.4 FL (80.0-100.0); MEAN CORPUSCULAR HEMOGLOBIN 32.3 PG (27.0-34.0); MEAN CORPUSCULAR HGB CONC 33.2 % (32.0-36.0); MONO % 5.1 % (0.0-8.0); NEUT % 58.8 % (16.0-70.0); PLATELET COUNT 274 TH/MM3 (150-450); RED BLOOD COUNT 2.94 MIL/MM3 (4.50-5.90); WHITE BLOOD COUNT 10.8 TH/MM3 (4.0-11.0)
--- NOTE | 2016-09-18 15:42 | PD.CONS ---
History of Present Illness Service Infectious disease Consult Requested By Dr Christelle Moraes Reason for Consult Evaluate patient with positive blood culture, has pneumonia Primary Care Physician Rosalba Quintero MD Diagnoses: History of Present Illness Patient seen and examined. Records reviewed Patient is a 56-year-old male who presented to the emergency department with complaint of chest pain. He states that he has had chest pain off and on for the past year, but worse over the past 3-4 days. The chest pain seems to be moving around, and not really related to any kind of activity. Back pain is chronic and he denies any new injury. He has some coughing usually when he lies down, and occasionally would bring up some grayish phlegm. This has been an ongoing problem on and off. Patient really area of vague as far as the duration of all his symptoms. He has not had any fever or chills or sweats. He denies any problems swallowing, and has not had any syncopal episode. He's had some nausea, but no brandan vomiting. His chest x-ray on admission had shown multi lobar pneumonia. Since admission he has not had any fever. His WBC is normal. He continues to have chest pain but it has not really gotten worse, and has not really resolved. 2 blood cultures done on admission, one of them is now reported as growing coag-negative staph. Patient has been getting Zosyn , and vancomycin IV was started today. Infectious disease consultation has been requested to evaluate the patient and make recommendation regarding antibiotic treatment. Review of Systems Constitutional: DENIES: Fever, Chills, Night Sweats Eyes: DENIES: Eye pain Ears, nose, mouth, throat: DENIES: Nasal discharge, Oral lesions, Throat pain, Ear Pain, Sinus Pain Respiratory: COMPLAINS OF: Cough, Sputum production, DENIES: Shortness of breath Cardiovascular: COMPLAINS OF: Chest pain, DENIES: Palpitations, Syncope, Lower Extremity Edema Gastrointestinal: COMPLAINS OF: Abdominal pain, Nausea, DENIES: Vomiting, Difficulty Swallowing, Anorexia Genitourinary: COMPLAINS OF: Urinary frequency Musculoskeletal: COMPLAINS OF: Back pain, DENIES: Joint pain, Muscle aches, Joint Swelling Integumentary: DENIES: Rash Neurologic: DENIES: Headache Psychiatric: DENIES: Hallucinations Past Family Social History Allergies: Coded Allergies: *MDRO Multi-Drug Resistant Organism (Verified Adverse Reaction, Unknown, ) 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 Past Medical History Coronary artery disease Hyperlipidemia GERD CHF Chronic kidney disease stage IV Chronic low back pain Neuropathy Past Surgical History Cardiac cath Active Ordered Medications Tylenol [place] Norvasc ASA Lipitor Dulcolax Oscal-D Coreg Plavix Flexeril Drisdol Lasix Neurontin Heparin Hydralazine Lactulose Cozaar MOM Minoxidil Remeron Zofran Protonix Zosyn Senokot Sodium bicarb Flomax Vancomycin Family History Heart disease Social History The patient is a former smoker. He reports rare alcohol use. Denies illicit drug use. Physical Exam Vital Signs Vital Signs Date Time Temp Pulse Resp B/P Pulse Ox O2 Delivery O2 Flow Rate FiO2 09/18/16 12:13 97 21 09/18/16 12:04 98.4 78 18 126/66 95 09/18/16 10:59 97 Room Air 09/18/16 08:05 98.6 71 18 152/74 95 09/18/16 04:00 98.7 80 18 153/81 98 09/18/16 00:27 98.5 88 16 145/97 97 09/17/16 20:00 Room Air 09/17/16 20:00 98.7 81 18 151/84 97 09/17/16 17:47 96 Nasal Cannula 3.00 09/17/16 16:00 98.3 84 16 155/74 96 09/17/16 16:00 Room Air Physical Exam GENERAL: Patient is a well-nourished, well-developed male, awake and alert, not in respiratory distress. SKIN: Warm and dry. No generalized rash, no ecchymoses and no evidence of embolic lesions. HEAD: Atraumatic. Normocephalic. No temporal wasting, or tenderness. EYES: [place] conjunctiva. No petechia or hemorrhage. Pupils equal, round and reactive to light. Extraocular movements full and intact. No scleral icterus. No injection or drainage. EARS, NOSE AND THROAT: Nose without bleeding or purulent nasal discharge. No sinus tenderness. Mucous membranes pink and moist. No oral lesions noted. No exudate. No oral thrush. NECK: Trachea midline. Supple and not tender, no meningeal signs CARDIOVASCULAR: Regular rate and rhythm. Occ early betas, has systolic murmur loudest at base of the heart RESPIRATORY: Clear to auscultation. Breath sounds equal bilaterally. No rales , wheezing or rhonchi ABDOMEN: Soft, mild tenderness in epigastric region, nondistended. Bowel sounds present and normoactive. No guarding. No rebound. No organomegaly. EXTREMITIES: No clubbing, cyanosis, or edema.No joint effusion, has good ROM. No calf tenderness. Well perfused and warm. NEUROLOGICAL: Awake and alert. Cranial nerves grossly intact. Motor grossly within normal limits. PSYCHIATRIC: Normal affect, calm and cooperative. LINE: No evidence of infection Laboratory Laboratory Tests Test 09/18/16 03:27 Sodium Level 142 Potassium Level 4.4 Chloride Level 110 Carbon Dioxide Level 24.0 Anion Gap 8 Blood Urea Nitrogen 24 Creatinine 4.03 Estimat Glomerular Filtration 19 Rate Random Glucose 76 Calcium Level 8.0 Phosphorus Level 5.3 Albumin 1.6 Random Vancomycin Level 17.1 Date/Time Procedure Status Source Growth 09/18/16 14:54 Aerobic Blood Culture Received Blood Peripheral Pending 09/18/16 14:54 Anaerobic Blood Culture Received Blood Peripheral Pending 09/14/16 14:10 Aerobic Blood Culture - Preliminary Resulted Blood Peripheral NO GROWTH IN 4 DAYS 09/14/16 14:10 Anaerobic Blood Culture - Preliminary Resulted Staph Sp Coagulase Negative Result Diagram: 09/17/16 0635 09/18/16 0327 Imaging RADIOLOGY STUDIES/FILMS REVIEWED Last Impressions Renal Ultrasound 09/15/16 0000 Signed Impressions: Service Date/Time: Thursday, September 15, 2016 21:12 - CONCLUSION: 1. Prominent prostate. 2. Mild echogenic renal parenchyma again noted. Remigio Bill MD Chest X-Ray 09/14/16 1218 Signed Impressions: Service Date/Time: Wednesday, September 14, 2016 12:28 - CONCLUSION: Multilobar consolidation likely pneumonia. Paul Lala MD Assessment and Plan Assessment and Plan IMPRESSION Pneumonia, minimal congestion symptoms or complaints One (+) BC with Coag Neg Staph C/W contamination Chest pain Known CAD RECOMMENDATION Change Abx to levaquin D/C other Abx No Rx needed for the (+) BC Legionella Ag and pneumococcal Ag Try to get sputum C/S Repeat CXR Follow C/S I will make further recommendation once work-up completed I will follow along with you Thank you for this consultation Discussed Condition With Explained recommendation to patient Kyra Woody MD Sep 18, 2016 15:42
[2016-09-18] MEDS ORDERED: VANCOMYCIN 1,500 MG/NS 500 ML IV ONE ×2 (16:00)
[2016-09-18] MEDS ORDERED: LEVOFLOXACIN 250 MG TAB PO SCH (16:00)
[2016-09-18] MEDS: LEVOFLOXACIN 250 MG TAB PO SCH (17:14)
[2016-09-18] MEDS: MIRTAZAPINE 15 MG TAB PO SCH (20:35)
[2016-09-18] MEDS: ATORVASTATIN 80 MG TAB PO SCH (20:36)
[2016-09-18] MEDS: TAMSULOSIN HCL 0.4 MG CAP PO SCH (20:36)
[2016-09-19] VITALS (9 sets, daily range): BP systolic 132–180; BP diastolic 65–85; PULSE 77–87; RESP 18–20; TEMP 98.4–99.5; O2SAT 95–97
[2016-09-19 03:50] LABS: MYELOPEROXIDASE LESS THAN 1.0 AI (<1.0); PROTEINASE-3 LESS THAN 1.0 AI (<1.0)
[2016-09-19] MEDS: SODIUM BICARBONATE 650 MG TAB PO SCH ×3 (05:50→20:58)
[2016-09-19] MEDS: ACETAMINOPHEN/HYDROcodone 325 MG/10 MG TAB PO PRN ×3 (05:50→20:57)
[2016-09-19 08:04] LABS: HEMATOCRIT 26.3 % (39.0-51.0); MEAN CELL VOLUME 98.5 FL (80.0-100.0); MEAN CORPUSCULAR HEMOGLOBIN 32.2 PG (27.0-34.0); MEAN CORPUSCULAR HGB CONC 32.7 % (32.0-36.0); PLATELET COUNT 247 TH/MM3 (150-450); RED BLOOD COUNT 2.67 MIL/MM3 (4.50-5.90); RED CELL DISTRIBUTION WIDTH 14.1 % (11.6-17.2); REVIEW FLAG FINAL; WHITE BLOOD COUNT 11.5 TH/MM3 (4.0-11.0)
[2016-09-19] MEDS: ASPIRIN EC 81 MG TABEC PO SCH (08:05)
[2016-09-19] MEDS: CARVEDILOL 12.5 MG TAB PO SCH ×2 (08:06→20:57)
[2016-09-19] MEDS: FUROSEMIDE 20 MG TAB PO SCH ×2 (08:06→20:57)
[2016-09-19] MEDS: PANTOPRAZOLE SOD 40 MG DELAYED RELEASE TAB PO SCH (08:06)
[2016-09-19] MEDS: GABAPENTIN 300 MG CAP PO SCH (08:06)
[2016-09-19] MEDS: CLOPIDOGREL 75 MG TAB PO SCH (08:06)
[2016-09-19] MEDS: CYCLOBENZAPRINE HCL 10 MG TAB PO SCH ×3 (08:06→17:28)
[2016-09-19] MEDS: hydrALAZINE HCL 100 MG TAB PO SCH ×3 (08:06→17:29)
[2016-09-19] MEDS: DOCUSATE SODIUM 50 MG/SENNA 8.6 MG TAB PO SCH ×2 (08:06→08:10)
[2016-09-19] MEDS: CALCIUM/VITAMIN D 250 MG/125 U TAB PO SCH ×2 (08:06→20:57)
[2016-09-19] MEDS: MINOXIDIL 2.5 MG TAB PO SCH (08:06)
[2016-09-19] MEDS: HEPARIN SODIUM - SQ 10,000 UNITS/ML VIAL SQ SCH ×2 (08:07→20:58)
[2016-09-19] MEDS: LOSARTAN 25 MG TAB PO SCH (08:07)
[2016-09-19 08:26] LABS: BICARBONATE 23.7 MEQ/L (21.0-32.0); POTASSIUM 4.6 MEQ/L (3.5-5.1)
--- NOTE | 2016-09-19 09:46 | HHI.IDPN ---
Subjective Subjective Remarks Patient is a 56-year-old male who presented to the emergency department with complaint of chest pain. He states that he has had chest pain off and on for the past year, but worse over the past 3-4 days. The chest pain seems to be moving around, and not really related to any kind of activity. Back pain is chronic and he denies any new injury. He has some coughing usually when he lies down, and occasionally would bring up some grayish phlegm. This has been an ongoing problem on and off. Patient really area of vague as far as the duration of all his symptoms. He has not had any fever or chills or sweats. He denies any problems swallowing, and has not had any syncopal episode. He's had some nausea, but no brandan vomiting. His chest x-ray on admission had shown multi lobar pneumonia. Since admission he has not had any fever. His WBC is normal. He continues to have chest pain but it has not really gotten worse, and has not really resolved. 2 blood cultures done on admission, one of them is now reported as growing coag-negative staph. Patient has been getting Zosyn , and vancomycin IV was started today. Notes reviewed Temps ok Repeat CXR looks better NO new (+) BC CP same Antibiotics Levaquin Lines PIV Past Medical History Coronary artery disease Hyperlipidemia GERD CHF Chronic kidney disease stage IV Chronic low back pain Neuropathy Past Surgical History Cardiac cath Allergies: Coded Allergies: *MDRO Multi-Drug Resistant Organism (Verified Adverse Reaction, Unknown, ) 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 Objective . Vital Signs Date Time Temp Pulse Resp B/P Pulse Ox O2 Delivery O2 Flow Rate FiO2 09/19/16 08:05 98.6 81 18 180/84 97 09/19/16 06:43 18 09/19/16 04:01 Room Air 09/19/16 04:00 98.6 87 18 146/83 97 09/19/16 00:00 99.5 84 18 150/79 95 09/19/16 00:00 Room Air 09/18/16 20:48 96 09/18/16 20:35 Room Air 09/18/16 20:14 88 09/18/16 20:00 98.4 84 16 154/75 96 09/18/16 16:33 97.8 83 18 146/82 97 09/18/16 12:13 97 21 09/18/16 12:04 98.4 78 18 126/66 95 09/18/16 10:59 97 Room Air 09/18/16 09/18/16 09/19/16 15:00 23:00 07:00 Intake Total 720 ml 600 ml 865 ml Output Total 1200 ml 1300 ml Balance 720 ml -600 ml -435 ml Intake Oral 720 ml 600 ml 620 ml IV Total 245 ml Output Urine Total 1200 ml 1300 ml # Voids 2 # Bowel Movements 0 0 0 . Laboratory Tests Test 09/18/16 09/19/16 14:50 07:00 White Blood Count 10.8 TH/MM3 11.5 TH/MM3 Red Blood Count 2.94 MIL/MM3 2.67 MIL/MM3 Hemoglobin 9.5 GM/DL 8.6 GM/DL Hematocrit 28.6 % 26.3 % Mean Corpuscular Volume 97.4 FL 98.5 FL Mean Corpuscular Hemoglobin 32.3 PG 32.2 PG Mean Corpuscular Hemoglobin 33.2 % 32.7 % Concent Red Cell Distribution Width 14.0 % 14.1 % Platelet Count 274 TH/MM3 247 TH/MM3 Mean Platelet Volume 8.1 FL 8.2 FL Neutrophils (%) (Auto) 58.8 % Lymphocytes (%) (Auto) 29.1 % Monocytes (%) (Auto) 5.1 % Eosinophils (%) (Auto) 6.0 % Basophils (%) (Auto) 1.0 % Neutrophils # (Auto) 6.3 TH/MM3 Lymphocytes # (Auto) 3.1 TH/MM3 Monocytes # (Auto) 0.6 TH/MM3 Eosinophils # (Auto) 0.6 TH/MM3 Basophils # (Auto) 0.1 TH/MM3 CBC Comment DIFF FINAL Differential Comment Laboratory Tests Test 09/18/16 09/19/16 03:27 07:00 Sodium Level 142 MEQ/L 142 MEQ/L Potassium Level 4.4 MEQ/L 4.6 MEQ/L Chloride Level 110 MEQ/L 111 MEQ/L Carbon Dioxide Level 24.0 MEQ/L 23.7 MEQ/L Anion Gap 8 MEQ/L 7 MEQ/L Blood Urea Nitrogen 24 MG/DL 23 MG/DL Creatinine 4.03 MG/DL 4.03 MG/DL Estimat Glomerular Filtration 19 ML/MIN 19 ML/MIN Rate Random Glucose 76 MG/DL 82 MG/DL Calcium Level 8.0 MG/DL 7.9 MG/DL Phosphorus Level 5.3 MG/DL 4.9 MG/DL Albumin 1.6 GM/DL 1.6 GM/DL Microbiology Date/Time Procedure Status Source Growth 09/18/16 14:50 Aerobic Blood Culture Received Blood Peripheral Pending 09/18/16 14:50 Anaerobic Blood Culture Received Blood Peripheral Pending 09/18/16 14:54 Aerobic Blood Culture Received Blood Peripheral Pending 09/18/16 14:54 Anaerobic Blood Culture Received Blood Peripheral Pending Imaging Renal Ultrasound 09/15/16 0000 Signed Impressions: Service Date/Time: Thursday, September 15, 2016 21:12 - CONCLUSION: 1. Prominent prostate. 2. Mild echogenic renal parenchyma again noted. Remigio Bill MD Chest X-Ray 09/14/16 1218 Signed Impressions: Service Date/Time: Wednesday, September 14, 2016 12:28 - CONCLUSION: Multilobar consolidation likely pneumonia. Paul Lala MD Physical Exam GENERAL: awake and alert, not in respiratory distress. SKIN: Warm and dry. No generalized rash, no ecchymoses and no evidence of embolic lesions. HEAD: Atraumatic. Normocephalic. No temporal wasting, or tenderness. EYES: [place] conjunctiva. No petechia or hemorrhage. Pupils equal, round and reactive to light. Extraocular movements full and intact. No scleral icterus. No injection or drainage. EARS, NOSE AND THROAT: Nose without bleeding or purulent nasal discharge. No sinus tenderness. Mucous membranes pink and moist. No oral lesions noted. NECK: Trachea midline. Supple and not tender, no meningeal signs CARDIOVASCULAR: Regular rate and rhythm. Occ early beats, has systolic murmur loudest at base of the heart RESPIRATORY: Clear to auscultation. Breath sounds equal bilaterally. No rales , wheezing or rhonchi ABDOMEN: Soft, mild tenderness in epigastric region, nondistended. Bowel sounds present and normoactive. No guarding. No rebound. No organomegaly. EXTREMITIES: No clubbing, cyanosis, or edema.No joint effusion, has good ROM. No calf tenderness. Well perfused and warm. NEUROLOGICAL: Non-focal PSYCHIATRIC: Normal affect, calm and cooperative. LINE: No evidence of infection Assessment & Plan Remarks IMPRESSION Pneumonia, minimal congestion symptoms or complaints One (+) BC with Coag Neg Staph C/W contamination Chest pain Known CAD RECOMMENDATION Continue levaquin Legionella Ag and pneumococcal Ag Follow C/S I will make further recommendation once work-up completed Kyra Woody MD Sep 19, 2016 09:46
--- NOTE | 2016-09-19 10:01 | RADRPT ---
EXAM DATE/TIME: 09/19/2016 09:15 [facility] COMPARISON: CHEST SINGLE AP, September 14, 2016, 12:28. INDICATIONS : Evaluate for infiltrates MEDICAL HISTORY : Renal failure, chronic. SURGICAL HISTORY : None. ENCOUNTER: Subsequent ACUITY: 1 month PAIN SCORE: 5/10 LOCATION: chest FINDINGS: The lungs are clear without infiltrate, nodule, or mass. There is no appreciable pleural effusion fo r technique. Heart and mediastinum are unremarkable. CONCLUSION: No acute cardiopulmonary disease. Kiana Muñoz MD on September 19, 2016 at 9:59 Board Certified Radiologist. This report was verified electronically.
[2016-09-19] MEDS: LEVOFLOXACIN 250 MG TAB PO SCH ×2 (13:23→17:28)
--- NOTE | 2016-09-19 14:19 | HHI.PR ---
Subjective Remarks cpugh improved no chest pains or shortness of breath voiding Objective Vitals Vital Signs Date Time Temp Pulse Resp B/P Pulse Ox O2 Delivery O2 Flow Rate FiO2 09/19/16 13:39 21 09/19/16 12:18 98.4 77 18 132/65 95 09/19/16 09:00 80 09/19/16 08:05 98.6 81 18 180/84 97 09/19/16 08:00 97 Room Air 09/19/16 06:43 18 09/19/16 04:01 Room Air 09/19/16 04:00 98.6 87 18 146/83 97 09/19/16 00:00 99.5 84 18 150/79 95 09/19/16 00:00 Room Air 09/18/16 20:48 96 09/18/16 20:35 Room Air 09/18/16 20:14 88 09/18/16 20:00 98.4 84 16 154/75 96 09/18/16 16:33 97.8 83 18 146/82 97 I/O 09/18/16 09/18/16 09/18/16 09/19/16 09/19/16 09/19/16 07:00 15:00 23:00 07:00 15:00 23:00 Intake Total 900 ml 720 ml 600 ml 865 ml Output Total 2000 ml 1200 ml 1300 ml Balance -1100 ml 720 ml -600 ml -435 ml Intake Oral 900 ml 720 ml 600 ml 620 ml IV Total 245 ml Output Urine Total 2000 ml 1200 ml 1300 ml # Voids 2 # Bowel Movements 0 0 0 0 Result Diagram: 09/19/16 0700 09/19/16 0700 Imaging Last Impressions Chest X-Ray 09/19/16 0000 Signed Impressions: Service Date/Time: Monday, September 19, 2016 09:15 - CONCLUSION: No acute cardiopulmonary disease. Kiana Muñoz MD Renal Ultrasound 09/15/16 0000 Signed Impressions: Service Date/Time: Thursday, September 15, 2016 21:12 - CONCLUSION: 1. Prominent prostate. 2. Mild echogenic renal parenchyma again noted. Remigio Bill MD Objective Remarks awake and alert, NAD anicteric lungs no rales or wheezes regular rhythm abdomen soft, nontender trace pretibial edema neuro exam- non focal Procedures None A/P Problem List: (1) Chest pain ICD Code: R07.9 Status: Acute (2) Pneumonia ICD Code: J18.9 Status: Acute (3) Hypertension ICD Code: I10 Status: Chronic (4) CAD (coronary artery disease) ICD Code: I25.10 Status: Acute (5) Leukocytosis ICD Code: D72.829 Status: Acute (6) Acute renal failure superimposed on chronic kidney disease ICD Code: N17.9 Status: Acute (7) Elevated troponin I level ICD Code: R74.8 Status: Acute (8) Hyperkalemia ICD Code: E87.5 Status: Acute (9) Secondary rhabdomyolysis ICD Code: M62.82 Status: Acute Assessment and Plan 56 years old male Sepsis secondary to Staph coag negative secondary Pneumonia: Continue supplemental oxygen, antibiotics, incentive spirometer. -09/17- blood culture + for Gram + cocci and pairs changed to staph coag negative - repeat blood cultures so far negative - Barrie URIAS 09/18 - appreciate ID- on Levaquin Chest pain with History of CAD. HTN: uncontrolled- slightly better systolic readings CHF- acute on chronic-- diastolic dysfunction SOB improved -no complains today. encourage to increase activity as tolerated -pain seems to be more musculoskeletal. -slightly elevated enzymes from [facility] -Appreciate cardiology recommendations. -Continue medical management.- Plavix, Lasix 40 mg po bid, coreg, Cozaar, Hydralazine, Minoxidil. monitor and adjust Acute renal failure superimposed on chronic kidney disease stage IV: Appreciate nephrology recommendations. worsening renal functions Hyperkalemia: Resolved.MOnitor Reported diarrhea= ff. stools studies ordered GERD: Protonix. DVT prophylaxis: Heparin. Problem Qualifiers (1) Pneumonia: Qualified Code: J18.9 - Pneumonia due to infectious organism, unspecified laterality, unspecified part of lung (2) Hypertension: Qualified Code: I10 - Hypertension, unspecified type (3) Acute renal failure superimposed on chronic kidney disease: Qualified Code: N17.9 - Acute renal failure superimposed on chronic kidney disease, unspecified CKD stage, unspecified acute renal failure type Khalif Moraes MD Sep 19, 2016 14:18 Khalif Moraes MD Sep 19, 2016 14:18
--- NOTE | 2016-09-19 18:31 | PD.CARD.PN ---
Subjective Subjective Remarks alert in nad Objective Vital Signs / I&O Vital Signs Date Time Temp Pulse Resp B/P Pulse Ox O2 Delivery O2 Flow Rate FiO2 09/19/16 16:05 98.5 77 18 148/74 97 09/19/16 13:39 21 09/19/16 12:18 98.4 77 18 132/65 95 09/19/16 09:00 80 09/19/16 08:05 98.6 81 18 180/84 97 09/19/16 08:00 97 Room Air 09/19/16 06:43 18 09/19/16 04:01 Room Air 09/19/16 04:00 98.6 87 18 146/83 97 09/19/16 00:00 99.5 84 18 150/79 95 09/19/16 00:00 Room Air 09/18/16 20:48 96 09/18/16 20:35 Room Air 09/18/16 20:14 88 09/18/16 20:00 98.4 84 16 154/75 96 I/O 09/18/16 09/18/16 09/18/16 09/19/16 09/19/16 09/19/16 06:59 14:59 22:59 06:59 14:59 22:59 Intake Total 1620 ml 600 ml 865 ml 720 ml Output Total 2000 ml 1200 ml 1300 ml 700 ml Balance -380 ml -600 ml -435 ml 20 ml Intake Oral 1620 ml 600 ml 620 ml 720 ml IV Total 245 ml Output Urine Total 2000 ml 1200 ml 1300 ml 700 ml # Voids 2 3 # Bowel Movements 0 0 0 0 Physical Exam GENERAL: SKIN: Warm and dry. HEAD: Normocephalic. EYES: No scleral icterus. No injection or drainage. NECK: Supple, trachea midline. No JVD or lymphadenopathy. CARDIOVASCULAR: Regular rate and rhythm without murmurs, gallops, or rubs. RESPIRATORY: Breath sounds equal bilaterally. No accessory muscle use. GASTROINTESTINAL: Abdomen soft, non-tender, nondistended. MUSCULOSKELETAL: No cyanosis, or edema. BACK: Nontender without obvious deformity. No CVA tenderness. Laboratory Laboratory Tests Test 09/19/16 07:00 White Blood Count 11.5 TH/MM3 Red Blood Count 2.67 MIL/MM3 Hemoglobin 8.6 GM/DL Hematocrit 26.3 % Mean Corpuscular Volume 98.5 FL Mean Corpuscular Hemoglobin 32.2 PG Mean Corpuscular Hemoglobin 32.7 % Concent Red Cell Distribution Width 14.1 % Platelet Count 247 TH/MM3 Mean Platelet Volume 8.2 FL Sodium Level 142 MEQ/L Potassium Level 4.6 MEQ/L Chloride Level 111 MEQ/L Carbon Dioxide Level 23.7 MEQ/L Anion Gap 7 MEQ/L Blood Urea Nitrogen 23 MG/DL Creatinine 4.03 MG/DL Estimat Glomerular Filtration 19 ML/MIN Rate Random Glucose 82 MG/DL Calcium Level 7.9 MG/DL Phosphorus Level 4.9 MG/DL Albumin 1.6 GM/DL Assessment and Plan Problem List: (1) Troponin level elevated (2) NSTEMI (non-ST elevated myocardial infarction) (3) Toqxz-el-xnoghvy kidney injury (4) Cardiac disease (5) CAD (coronary artery disease) (6) Hyperkalemia (7) CKD (chronic kidney disease) (8) Pneumonia (9) Chest pain (10) Anemia Assessment and Plan 1.) CAD - suspect elavted trop due to cri, chest pain due to pneumonia, i explained i cnnot r/o ischemic etiology without lhc which would be high risk for temporary or permanent dialysis; patient refuses. REC continue dapt due to acs, cad, coreg, lipitor, norvasc, hydralazine, add minoxidil for better bp control 2.) HTN - improving, on losartan now, defer continuation to nephrology based on risks/benefits ratio in context of cri Problem Qualifiers (1) Pneumonia: Qualified Code: J18.9 - Pneumonia due to infectious organism, unspecified laterality, unspecified part of lung Keegan Rodriguez MD Sep 19, 2016 18:30
[2016-09-19] MEDS: ACETAMINOPHEN 325 MG TAB PO PRN (18:43)
[2016-09-19] MEDS: TAMSULOSIN HCL 0.4 MG CAP PO SCH (20:56)
[2016-09-19] MEDS: MIRTAZAPINE 15 MG TAB PO SCH (20:57)
[2016-09-19] MEDS: ATORVASTATIN 80 MG TAB PO SCH (20:57)
[2016-09-20] VITALS (10 sets, daily range): BP systolic 128–162; BP diastolic 69–93; PULSE 73–91; RESP 16–20; TEMP 98.3–98.6; O2SAT 96–100
[2016-09-20] MEDS: SODIUM BICARBONATE 650 MG TAB PO SCH ×3 (05:35→21:49)
[2016-09-20] MEDS: ACETAMINOPHEN/HYDROcodone 325 MG/10 MG TAB PO PRN ×3 (05:36→18:29)
[2016-09-20] MEDS ORDERED: cloNIDine HCL 0.1 MG TAB PO ONE (06:00)
[2016-09-20] MEDS: HEPARIN SODIUM - SQ 10,000 UNITS/ML VIAL SQ SCH ×2 (09:05→21:49)
[2016-09-20] MEDS: hydrALAZINE HCL 100 MG TAB PO SCH ×3 (09:06→18:27)
[2016-09-20] MEDS: CALCIUM/VITAMIN D 250 MG/125 U TAB PO SCH ×2 (09:07→21:49)
[2016-09-20] MEDS: PANTOPRAZOLE SOD 40 MG DELAYED RELEASE TAB PO SCH (09:08)
[2016-09-20] MEDS: MINOXIDIL 2.5 MG TAB PO SCH (09:08)
[2016-09-20] MEDS: CLOPIDOGREL 75 MG TAB PO SCH (09:09)
[2016-09-20] MEDS: CARVEDILOL 12.5 MG TAB PO SCH ×2 (09:09→21:51)
[2016-09-20] MEDS: GABAPENTIN 300 MG CAP PO SCH (09:10)
[2016-09-20] MEDS: ASPIRIN EC 81 MG TABEC PO SCH (09:10)
[2016-09-20] MEDS: LOSARTAN 25 MG TAB PO SCH (09:10)
[2016-09-20] MEDS: FUROSEMIDE 20 MG TAB PO SCH ×2 (09:11→21:49)
[2016-09-20] MEDS: DOCUSATE SODIUM 50 MG/SENNA 8.6 MG TAB PO SCH ×2 (09:11→21:00)
[2016-09-20] MEDS: CYCLOBENZAPRINE HCL 10 MG TAB PO SCH ×3 (09:11→18:28)
--- NOTE | 2016-09-20 10:23 | HHI.IDPN ---
Subjective Subjective Remarks Patient is a 56-year-old male who presented to the emergency department with complaint of chest pain. He states that he has had chest pain off and on for the past year, but worse over the past 3-4 days. The chest pain seems to be moving around, and not really related to any kind of activity. Back pain is chronic and he denies any new injury. He has some coughing usually when he lies down, and occasionally would bring up some grayish phlegm. This has been an ongoing problem on and off. Patient really area of vague as far as the duration of all his symptoms. He has not had any fever or chills or sweats. He denies any problems swallowing, and has not had any syncopal episode. He's had some nausea, but no brandan vomiting. His chest x-ray on admission had shown multi lobar pneumonia. Since admission he has not had any fever. His WBC is normal. He continues to have chest pain but it has not really gotten worse, and has not really resolved. 2 blood cultures done on admission, one of them is now reported as growing coag-negative staph. Patient has been getting Zosyn , and vancomycin IV was started today. Notes reviewed Temps ok Repeat CXR read as normal NO new (+) BC Antibiotics Levaquin Lines PIV Past Medical History Coronary artery disease Hyperlipidemia GERD CHF Chronic kidney disease stage IV Chronic low back pain Neuropathy Past Surgical History Cardiac cath Allergies: Coded Allergies: *MDRO Multi-Drug Resistant Organism (Verified Adverse Reaction, Unknown, ) 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 Objective . Vital Signs Date Time Temp Pulse Resp B/P Pulse Ox O2 Delivery O2 Flow Rate FiO2 09/20/16 08:05 96 21 09/20/16 08:00 98.6 75 16 155/81 98 09/20/16 04:00 98.3 79 20 162/93 97 09/20/16 04:00 Room Air 09/20/16 03:11 97 09/20/16 00:00 Room Air 09/20/16 00:00 98.6 76 20 138/69 97 09/19/16 22:34 18 09/19/16 21:00 Room Air 09/19/16 20:39 77 09/19/16 20:00 98.5 78 20 159/85 95 09/19/16 18:42 97 21 09/19/16 16:05 98.5 77 18 148/74 97 09/19/16 13:39 21 09/19/16 12:18 98.4 77 18 132/65 95 09/19/16 09/19/16 09/20/16 15:00 23:00 07:00 Intake Total 720 ml 508 ml Output Total 700 ml 700 ml Balance 20 ml -192 ml Intake Oral 720 ml 500 ml IV Total 8 ml Output Urine Total 700 ml 700 ml # Voids 3 # Bowel Movements 0 0 . Laboratory Tests Test 09/18/16 09/19/16 14:50 07:00 White Blood Count 10.8 TH/MM3 11.5 TH/MM3 Red Blood Count 2.94 MIL/MM3 2.67 MIL/MM3 Hemoglobin 9.5 GM/DL 8.6 GM/DL Hematocrit 28.6 % 26.3 % Mean Corpuscular Volume 97.4 FL 98.5 FL Mean Corpuscular Hemoglobin 32.3 PG 32.2 PG Mean Corpuscular Hemoglobin 33.2 % 32.7 % Concent Red Cell Distribution Width 14.0 % 14.1 % Platelet Count 274 TH/MM3 247 TH/MM3 Mean Platelet Volume 8.1 FL 8.2 FL Neutrophils (%) (Auto) 58.8 % Lymphocytes (%) (Auto) 29.1 % Monocytes (%) (Auto) 5.1 % Eosinophils (%) (Auto) 6.0 % Basophils (%) (Auto) 1.0 % Neutrophils # (Auto) 6.3 TH/MM3 Lymphocytes # (Auto) 3.1 TH/MM3 Monocytes # (Auto) 0.6 TH/MM3 Eosinophils # (Auto) 0.6 TH/MM3 Basophils # (Auto) 0.1 TH/MM3 CBC Comment DIFF FINAL Differential Comment Laboratory Tests Test 09/19/16 07:00 Sodium Level 142 MEQ/L Potassium Level 4.6 MEQ/L Chloride Level 111 MEQ/L Carbon Dioxide Level 23.7 MEQ/L Anion Gap 7 MEQ/L Blood Urea Nitrogen 23 MG/DL Creatinine 4.03 MG/DL Estimat Glomerular Filtration 19 ML/MIN Rate Random Glucose 82 MG/DL Calcium Level 7.9 MG/DL Phosphorus Level 4.9 MG/DL Albumin 1.6 GM/DL Microbiology Date/Time Procedure Status Source Growth 09/18/16 14:50 Aerobic Blood Culture - Preliminary Resulted Blood Peripheral NO GROWTH IN 1 DAY 09/18/16 14:50 Anaerobic Blood Culture - Preliminary Resulted Blood Peripheral NO GROWTH IN 1 DAY 09/18/16 14:54 Aerobic Blood Culture - Preliminary Resulted Blood Peripheral NO GROWTH IN 1 DAY 09/18/16 14:54 Anaerobic Blood Culture - Preliminary Resulted Blood Peripheral NO GROWTH IN 1 DAY 09/19/16 13:50 Legionella Antigen - Final Complete Urine Clean Catch PRESUMPTIVE NEGATIVE FOR LEGIONELLA P... 09/19/16 13:50 Streptococcus pneumoniae Antigen (M - Final Complete Urine Clean Catch PRESUMPTIVE NEGATIVE FOR STREPTOCOCCU... Imaging Renal Ultrasound 09/15/16 0000 Signed Impressions: Service Date/Time: Thursday, September 15, 2016 21:12 - CONCLUSION: 1. Prominent prostate. 2. Mild echogenic renal parenchyma again noted. Remigio Bill MD Chest X-Ray 09/14/16 1218 Signed Impressions: Service Date/Time: Wednesday, September 14, 2016 12:28 - CONCLUSION: Multilobar consolidation likely pneumonia. Paul Lala MD Physical Exam GENERAL: awakens easily from sleep, not in respiratory distress. SKIN: Warm and dry. No generalized rash, no ecchymoses and no evidence of embolic lesions. HEAD: Atraumatic. Normocephalic. No temporal wasting, or tenderness. EYES: [place] conjunctiva. No petechia or hemorrhage. Pupils equal, round and reactive to light. Extraocular movements full and intact. No scleral icterus. No injection or drainage. EARS, NOSE AND THROAT: Nose without bleeding or purulent nasal discharge. No sinus tenderness. Mucous membranes pink and moist. No oral lesions noted. NECK: Trachea midline. Supple and not tender, no meningeal signs CARDIOVASCULAR: Regular rate and rhythm. Occ early beats, has systolic murmur loudest at base of the heart RESPIRATORY: Clear to auscultation. Breath sounds equal bilaterally. No rales , wheezing or rhonchi ABDOMEN: Soft,not tender, nondistended. Bowel sounds present and normoactive. No guarding. No rebound. No organomegaly. EXTREMITIES: No clubbing, cyanosis, or edema.No joint effusion, has good ROM. No calf tenderness. Well perfused and warm. NEUROLOGICAL: Non-focal PSYCHIATRIC: Normal affect, calm and cooperative. LINE: No evidence of infection Assessment & Plan Remarks IMPRESSION Pneumonia, minimal congestion symptoms or complaints One (+) BC with Coag Neg Staph C/W contamination Chest pain Known CAD RECOMMENDATION Continue levaquin - give 7 days - end date ordered in [facility] He is clinically doing well from ID standpoint I will be available prn Please call if with any new ID issue or question Kyra Woody MD Sep 20, 2016 10:23
--- NOTE | 2016-09-20 11:17 | HHI.PR ---
Subjective Remarks feeling better no complains Objective Vitals Vital Signs Date Time Temp Pulse Resp B/P Pulse Ox O2 Delivery O2 Flow Rate FiO2 09/20/16 08:05 96 21 09/20/16 08:00 98.6 75 16 155/81 98 09/20/16 04:00 98.3 79 20 162/93 97 09/20/16 04:00 Room Air 09/20/16 03:11 97 09/20/16 00:00 Room Air 09/20/16 00:00 98.6 76 20 138/69 97 09/19/16 22:34 18 09/19/16 21:00 Room Air 09/19/16 20:39 77 09/19/16 20:00 98.5 78 20 159/85 95 09/19/16 18:42 97 21 09/19/16 16:05 98.5 77 18 148/74 97 09/19/16 13:39 21 09/19/16 12:18 98.4 77 18 132/65 95 I/O 09/19/16 09/19/16 09/19/16 09/20/16 09/20/16 09/20/16 07:00 15:00 23:00 07:00 15:00 23:00 Intake Total 865 ml 720 ml 508 ml Output Total 1300 ml 700 ml 700 ml Balance -435 ml 20 ml -192 ml Intake Oral 620 ml 720 ml 500 ml IV Total 245 ml 8 ml Output Urine Total 1300 ml 700 ml 700 ml # Voids 3 # Bowel Movements 0 0 0 Result Diagram: 09/19/16 0700 09/19/16 0700 Imaging Last Impressions Chest X-Ray 09/19/16 0000 Signed Impressions: Service Date/Time: Monday, September 19, 2016 09:15 - CONCLUSION: No acute cardiopulmonary disease. Kiana Muñoz MD Renal Ultrasound 09/15/16 0000 Signed Impressions: Service Date/Time: Thursday, September 15, 2016 21:12 - CONCLUSION: 1. Prominent prostate. 2. Mild echogenic renal parenchyma again noted. Remigio Bill MD Objective Remarks awake and alert, NAD anicteric lungs no rales or wheezes regular rhythm abdomen soft, nontender no edema neuro exam- non focal Procedures None A/P Problem List: (1) Chest pain ICD Code: R07.9 Status: Acute (2) Pneumonia ICD Code: J18.9 Status: Acute (3) Hypertension ICD Code: I10 Status: Chronic (4) CAD (coronary artery disease) ICD Code: I25.10 Status: Acute (5) Leukocytosis ICD Code: D72.829 Status: Acute (6) Acute renal failure superimposed on chronic kidney disease ICD Code: N17.9 Status: Acute (7) Elevated troponin I level ICD Code: R74.8 Status: Acute (8) Hyperkalemia ICD Code: E87.5 Status: Acute (9) Secondary rhabdomyolysis ICD Code: M62.82 Status: Acute Assessment and Plan 56 years old male Sepsis secondary to Staph coag negative secondary Pneumonia: Continue supplemental oxygen, antibiotics, incentive spirometer. -09/17- blood culture + for Gram + cocci and pairs changed to staph coag negative - repeat blood cultures so far negative - Barrie URIAS 09/18 - appreciate ID- on Levaquin Chest pain with History of CAD. HTN: uncontrolled- slightly better systolic readings CHF- acute on chronic-- diastolic dysfunction SOB improved -pain seems to be more musculoskeletal. -slightly elevated enzymes from [facility] -Appreciate cardiology recommendations. -Continue medical management.- Plavix, Lasix 40 mg po bid, coreg, Cozaar, Hydralazine, Minoxidil. monitor and adjust -increase coreg Acute renal failure superimposed on chronic kidney disease stage IV: Appreciate nephrology recommendations. worsening renal functions Hyperkalemia: Resolved.MOnitor - Nephrology ff along [facility] GERD: Protonix. DVT prophylaxis: Heparin. Problem Qualifiers (1) Pneumonia: Qualified Code: J18.9 - Pneumonia due to infectious organism, unspecified laterality, unspecified part of lung (2) Hypertension: Qualified Code: I10 - Hypertension, unspecified type (3) Acute renal failure superimposed on chronic kidney disease: Qualified Code: N17.9 - Acute renal failure superimposed on chronic kidney disease, unspecified CKD stage, unspecified acute renal failure type Khalif Moraes MD Sep 20, 2016 11:17
--- NOTE | 2016-09-20 11:30 | HHI.NPPN ---
Subjective History of Present Illness The patient is a 56 yo AA male who is known to our services for CKD. He presented to the ED on 09/14 with complaints of worsening CP and SOB for the past week. Also has worsening of chronic back pain and weakness in his legs. He has been dx with PNA and is being tx'd with IV abx. His renal functions on arrival are declined with SCr of 4.04 and eGFR of 19. Last outpatient renal functions in June show a SCr of 2.35 and eGFR 35. During previous admission, he had a renal biopsy done that showed severe interstitial fibrosis, severe arteriosclerosis, and severe hyalinosis without any immune deposits. His last known EF is 55-60%. Cardiology has evaluated the patient and they have opted against cardiac catheterization given severe renal impairment. Currently, the patient is complaining of back and leg pain along with some SOB. Denies any new medications recently, no illness, no NSAID use, no illicit drug use. Interval History Patient complaining of generalized pain. Not in respiratory distress. Objective Data Data 09/19/16 09/20/16 18:59 06:59 Intake Total 720 ml 508 ml Output Total 700 ml 700 ml Balance 20 ml -192 ml Intake Oral 720 ml 500 ml IV Total 8 ml Output Urine Total 700 ml 700 ml # Voids 3 # Bowel Movements 0 0 Vital Signs Date Time Temp Pulse Resp B/P Pulse Ox O2 Delivery O2 Flow Rate FiO2 09/20/16 08:05 96 21 09/20/16 08:00 98.6 75 16 155/81 98 09/20/16 04:00 98.3 79 20 162/93 97 09/20/16 04:00 Room Air 09/20/16 03:11 97 09/20/16 00:00 Room Air 09/20/16 00:00 98.6 76 20 138/69 97 09/19/16 22:34 18 09/19/16 21:00 Room Air 09/19/16 20:39 77 09/19/16 20:00 98.5 78 20 159/85 95 09/19/16 18:42 97 21 09/19/16 16:05 98.5 77 18 148/74 97 09/19/16 13:39 21 09/19/16 12:18 98.4 77 18 132/65 95 -: 09/19/16 0700 09/19/16 0700 Microbiology 09/19/16 Legionella Antigen - Final, Complete PRESUMPTIVE NEGATIVE FOR LEGIONELLA P... 09/19/16 Streptococcus pneumoniae Antigen (M - Final, Complete PRESUMPTIVE NEGATIVE FOR STREPTOCOCCU... Medication Review Current Medications Sodium Chloride 2 ml 2 ml UNSCH PRN IVF FLUSH AFTER USING IV ACCESS Last administered on 09/14/16 21:49; Start 09/14/16 at 12:30 Piperacillin Sod/ Tazobactam Sod 100 ml @ 200 mls/hr ONCE STAT IV Last administered on 09/14/16 14:44; Start 09/14/16 at 13:53; Stop 09/14/16 at 14:22 ; Status DC Azithromycin/ Sodium Chloride (Zithromax Inj/ NS 250 ml Inj) 250 ml @ 250 mls/ hr ONCE STAT IV Last administered on 09/14/16 14:45; Start 09/14/16 at 13:53 ; Stop 09/14/16 at 14:52; Status DC Morphine Sulfate 4 mg 4 mg ONCE ONCE IV PUSH Last administered on 09/14/16 14 :46; Start 09/14/16 at 14:15; Stop 09/14/16 at 14:16; Status DC Sodium Chloride 1,000 ml @ 999 mls/hr BOLUS ONCE IV Last administered on 09/14 14:45; Start 09/14/16 at 14:15; Stop 09/14/16 at 15:15; Status DC Vancomycin HCl 1000 mg/Sodium Chloride 250 ml @ 250 mls/hr ONCE ONCE IV Last administered on 09/14/16 15:58; Start 09/14/16 at 14:15; Stop 09/14/16 at 15:14 ; Status DC Sodium Chloride (NS 1000 ml Inj) 1,000 ml @ 40 mls/hr Q24H IV Last administered on 09/14/16 19:20; Start 09/14/16 at 16:55; Stop 09/15/16 at 16:54 ; Status DC Acetaminophen (Tylenol) 650 mg Q4H PRN PO TEMP > 100.4 or pain 1-2 Last administered on 09/19/16 18:43; Start 09/14/16 at 17:00 Ondansetron HCl (Zofran Inj) 4 mg Q6H PRN IVP NAUSEA OR VOMITING; Start at 17:00 Heparin Sodium (Porcine) (Heparin Inj) 5,000 units Q12H SQ Last administered on 09/20/16 09:05; Start 09/14/16 at 20:00 Naloxone HCl (Narcan Inj) 0.4 mg UNSCH PRN IV SEE LABEL COMMENTS; Start at 17:00 Senna/Docusate Sodium (Kasey-Colace) 1 tab BID PO Last administered on 09:21; Start 09/14/16 at 21:00 Magnesium Hydroxide (Milk Of Magnesia Liq) 30 ml Q12H PRN PO MILD - MODERATE CONSTIPATION; Start 09/14/16 at 17:00 Sennosides (Senokot) 17.2 mg Q12H PRN PO MODERATE - SEVERE CONSTIPATION; Start 09/14/16 at 17:00 Bisacodyl (Dulcolax Supp) 10 mg DAILY PRN RECTAL SEVERE CONSITIPATION; Start at 17:00 Lactulose 30 ml 30 ml DAILY PRN PO SEVERE CONSITIPATION; Start 09/14/16 at 17: 00 Pharmacy Profile Note 0 ml @ 0 mls/hr UNSCH OTHER ; Start 09/14/16 at 17:00; Stop 09/18/16 at 15:52; Status DC Piperacillin Sod/ Tazobactam Sod (Zosyn 3.375 Gm Premix) 50 ml @ 100 mls/hr Q8H IV Last administered on 09/18/16 14:13; Start 09/14/16 at 22:00; Stop at 15:52; Status DC Amlodipine Besylate (Norvasc) 10 mg DAILY PO Last administered on 09/20/16 09: 10; Start 09/15/16 at 09:00 Aspirin (Ecotrin Ec) 81 mg DAILY PO Last administered on 09/20/16 09:10; Start 09/15/16 at 09:00 Atorvastatin Calcium (Lipitor) 80 mg HS PO Last administered on 09/19/16 20:57 ; Start 09/14/16 at 21:00 Carvedilol (Coreg) 6.25 mg BID PO Last administered on 09/15/16 21:10; Start 09/14/16 at 21:00; Stop 09/16/16 at 07:47; Status DC Clopidogrel Bisulfate (Plavix) 75 mg DAILY PO Last administered on 09/20/16 09 :09; Start 09/15/16 at 09:00 Cyclobenzaprine HCl (Flexeril) 10 mg TID PO Last administered on 09/20/16 09: 11; Start 09/14/16 at 18:00 Furosemide (Lasix) 20 mg DAILY PO Last administered on 09/16/16 09:21; Start 09/15/16 at 09:00; Stop 09/16/16 at 15:30; Status DC Gabapentin (Neurontin) 600 mg TID PO Last administered on 09/15/16 13:26; Start 09/14/16 at 18:00; Stop 09/15/16 at 14:14; Status DC Hydralazine HCl (Apresoline) 100 mg TID PO Last administered on 09/20/16 09:06 ; Start 09/14/16 at 18:00 Losartan Potassium (Cozaar) 100 mg DAILY PO ; Start 09/15/16 at 09:00; Stop at 09:00; Status DC Mirtazapine (Remeron) 15 mg HS PO Last administered on 09/19/16 20:57; Start 09/14/16 at 21:00 Pantoprazole Sodium (Protonix) 40 mg DAILY PO Last administered on 09/20/16 09 :08; Start 09/15/16 at 09:00 Tamsulosin HCl (Flomax) 0.4 mg HS PO Last administered on 09/19/16 20:56; Start 09/14/16 at 21:00 Non-Formulary Medication 1 tab BID PO ; Start 09/14/16 at 21:00; Status UNV Sodium Polystyrene Sulfonate (Kayexalate Liq) 15 gm ONCE ONCE PO Last administered on 09/14/16 19:19; Start 09/14/16 at 18:15; Stop 09/14/16 at 18:53 ; Status DC Sodium Bicarbonate (Sodium Bicarbonate) 650 mg Q8HR PO Last administered on 05:35; Start 09/14/16 at 18:15 Calcium/Vitamin D (Oscal-D 250-125) 500 mg BID PO Last administered on 09:07; Start 09/14/16 at 21:00 Acetaminophen/ Hydrocodone Bitart 1 tab 1 tab ONCE ONCE PO Last administered on 09/15/16 04:08; Start 09/15/16 at 03:45; Stop 09/15/16 at 03:46; Status DC Vancomycin HCl/ Sodium Chloride (Vancomycin Inj/ NS 250 ml Inj) 250 ml @ 250 mls/hr ONCE ONCE IV Last administered on 09/15/16 13:24; Start 09/15/16 at 12 :00; Stop 09/15/16 at 12:59; Status DC Gabapentin (Neurontin) 600 mg DAILY PO Last administered on 09/20/16 09:10; Start 09/16/16 at 09:00 Bumetanide (Bumex Inj) 2 mg ONCE ONCE IV PUSH Last administered on 09/15/16 18:06; Start 09/15/16 at 18:00; Stop 09/15/16 at 18:01; Status DC Acetaminophen/ Hydrocodone Bitart ([place] 5-325 Mg) 1 tab ONCE ONCE PO Last administered on 09/15/16 23:34; Start 09/15/16 at 22:00; Stop 09/15/16 at 22:01 ; Status DC Clonidine (Catapres) 0.2 mg ONCE ONCE PO Last administered on 09/16/16 04:38 ; Start 09/16/16 at 04:15; Stop 09/16/16 at 04:16; Status DC Carvedilol 12.5 mg 12.5 mg BID PO Last administered on 09/20/16 09:09; Start 09/16/16 at 09:00; Stop 09/20/16 at 11:06; Status DC Vancomycin HCl/ Sodium Chloride (Vancomycin Inj/ NS 500 ml Inj) 515 ml @ 257.5 mls/ hr ONCE ONCE IV Last administered on 09/16/16 15:14; Start 09/16/16 at 13:00; Stop 09/16/16 at 14:59; Status DC Minoxidil (Loniten) 2.5 mg ONCE ONCE PO Last administered on 09/16/16 16:54; Start 09/16/16 at 12:15; Stop 09/16/16 at 13:06; Status DC Minoxidil (Loniten) 2.5 mg DAILY PO Last administered on 09/20/16 09:08; Start 09/17/16 at 09:00 Furosemide (Lasix) 40 mg BID PO Last administered on 09/20/16 09:11; Start at 21:00 Epoetin Salvatore (Epogen Inj) 10,000 units ONCE ONCE SQ Last administered on 16:54; Start 09/16/16 at 16:00; Stop 09/16/16 at 16:01; Status DC Losartan Potassium (Cozaar) 25 mg DAILY PO Last administered on 09/20/16 09:10 ; Start 09/17/16 at 17:00 Acetaminophen/ Hydrocodone Bitart ([place] 5-325 Mg) 1 tab Q6H PRN PO PAIN SCALE 3 TO 6; Start 09/17/16 at 14:45 Acetaminophen/ Hydrocodone Bitart ([place] 10-325 Mg) 1 tab Q6H PRN PO PAIN SCALE 7 TO 10 Last administered on 09/20/16 05:36; Start 09/17/16 at 14:45 Ergocalciferol 48655 units 50,000 units Q7D PO Last administered on 09/18/16 14:11; Start 09/18/16 at 11:00 Vancomycin HCl/ Sodium Chloride (Vancomycin Inj/ NS 500 ml Inj) 515 ml @ 257.5 mls/ hr ONCE@1600 ONCE IV Last administered on 09/18/16 17:14; Start at 16:00; Stop 09/18/16 at 17:59; Status DC Levofloxacin (Levaquin) 250 mg DAILY PO ; Start 09/18/16 at 16:00; Stop at 16:00; Status DC Levofloxacin (Levaquin) 250 mg DAILY@16 PO Last administered on 09/19/16 17:28 ; Start 09/18/16 at 16:00; Stop 09/25/16 at 12:00 Clonidine (Catapres) 0.1 mg ONCE ONCE PO Last administered on 09/20/16 06:33 ; Start 09/20/16 at 06:00; Stop 09/20/16 at 06:09; Status DC Carvedilol (Coreg) 25 mg BID PO ; Start 09/20/16 at 21:00 Physical Exam General Appearance: Well Developed, Well Nourished, No Acute Distress, Comfortable Eyes Eye Exam: Sclera White Neck Neck Exam: Trachea Midline Pulmonary Resp Exam: Clear Bilaterally, Breath Sounds Equal, No Distress Cardiology CV Exam: Regular, Normal Sinus Rhythm, Murmur Gastrointestinal/Abdomen GI Exam: Soft, Non-Tender Integumentary Skin Exam: Clear, Warm, Dry Extremeties Extremities Exam: Moderate Edema (improving), Pitting Edema Neurologic Neuro Exam: Alert, Awake Psychiatric Psych Exam: Appropriate Responses Assessment/Plan Discussed Condition With: Patient Problem List: (1) Acute renal failure superimposed on chronic kidney disease Plan: Patient appears to have established CKD for this point in time and I believe he will likely progress to end-stage renal disease within the next few weeks or months. He was informed of this. Unfortunately has not got a payor source as an outpatient and this will make ongoing care difficult given the severity of his CKD and ultimate progression to end-stage renal disease. Patient's renal function appears to be relatively stable albeit severely impaired. Discharge planning okay from renal point of view with follow-up with me in the office within the next 2-3 weeks as discussed with him. We'll see patient when necessary at this point in time. Medications should be adjusted for the patient's estimated GFR if clinically indicated. Avoid agents with significant potential for nephrotoxicity possible including NSAIDs for analgesia, iodine contrast agents. Gadolinium is contraindicated if the GFR is below 30. (2) Edema Plan: Continue on po Lasix 40mg BID as volume status improved (3) Hypertension Plan: BP trending down. Continue on current regimen. (4) Metabolic acidosis Plan: Improved with po bicarb. (5) Pneumonia Plan: Abx regimen as per primary team (6) Anemia Plan: s/p Procrit x1 Patient appears to have anemia of renal disease. (7) Vitamin D deficiency Plan: Start on Ergocalciferol Problem Qualifiers (1) Acute renal failure superimposed on chronic kidney disease: Qualified Code: N17.9 - Acute renal failure superimposed on chronic kidney disease, unspecified CKD stage, unspecified acute renal failure type (2) Hypertension: Qualified Code: I10 - Hypertension, unspecified type (3) Pneumonia: Qualified Code: J18.9 - Pneumonia due to infectious organism, unspecified laterality, unspecified part of lung Radha Marie MD Sep 20, 2016 11:30
--- NOTE | 2016-09-20 15:41 | PD.CARD.PN ---
Subjective Subjective Remarks ambulating, feeling better Objective Vital Signs / I&O Vital Signs Date Time Temp Pulse Resp B/P Pulse Ox O2 Delivery O2 Flow Rate FiO2 09/20/16 12:00 98.3 73 20 132/71 100 09/20/16 08:05 96 21 09/20/16 08:00 98.6 75 16 155/81 98 09/20/16 04:00 98.3 79 20 162/93 97 09/20/16 04:00 Room Air 09/20/16 03:11 97 09/20/16 00:00 Room Air 09/20/16 00:00 98.6 76 20 138/69 97 09/19/16 22:34 18 09/19/16 21:00 Room Air 09/19/16 20:39 77 09/19/16 20:00 98.5 78 20 159/85 95 09/19/16 18:42 97 21 09/19/16 16:05 98.5 77 18 148/74 97 I/O 09/19/16 09/19/16 09/19/16 09/20/16 09/20/16 09/20/16 07:00 15:00 23:00 07:00 15:00 23:00 Intake Total 865 ml 720 ml 508 ml Output Total 1300 ml 700 ml 700 ml Balance -435 ml 20 ml -192 ml Intake Oral 620 ml 720 ml 500 ml IV Total 245 ml 8 ml Output Urine Total 1300 ml 700 ml 700 ml # Voids 3 # Bowel Movements 0 0 0 Physical Exam GENERAL: SKIN: Warm and dry. HEAD: Normocephalic. EYES: No scleral icterus. No injection or drainage. NECK: Supple, trachea midline. No JVD or lymphadenopathy. CARDIOVASCULAR: Regular rate and rhythm without murmurs, gallops, or rubs. RESPIRATORY: Breath sounds equal bilaterally. No accessory muscle use. GASTROINTESTINAL: Abdomen soft, non-tender, nondistended. MUSCULOSKELETAL: No cyanosis, or edema. BACK: Nontender without obvious deformity. No CVA tenderness. Assessment and Plan Problem List: (1) Troponin level elevated (2) NSTEMI (non-ST elevated myocardial infarction) (3) Apspl-pj-dylcyez kidney injury (4) Cardiac disease (5) CAD (coronary artery disease) (6) Hyperkalemia (7) CKD (chronic kidney disease) (8) Pneumonia (9) Chest pain (10) Anemia Assessment and Plan 1.) CAD - suspect elavted trop due to cri, chest pain due to pneumonia, i explained i cnnot r/o ischemic etiology without lhc which would be high risk for temporary or permanent dialysis; patient refuses. REC continue dapt due to acs, cad, coreg, lipitor, norvasc, hydralazine, add minoxidil for better bp control 2.) HTN - improving, on losartan now, defer continuation to nephrology based on risks/benefits ratio in context of cri Problem Qualifiers (1) Pneumonia: Qualified Code: J18.9 - Pneumonia due to infectious organism, unspecified laterality, unspecified part of lung Keegan Rodriguez MD Sep 20, 2016 15:41
[2016-09-20] MEDS: LEVOFLOXACIN 250 MG TAB PO SCH (18:27)
[2016-09-20] MEDS: ATORVASTATIN 80 MG TAB PO SCH (21:49)
[2016-09-20] MEDS: MIRTAZAPINE 15 MG TAB PO SCH (21:50)
[2016-09-20] MEDS: TAMSULOSIN HCL 0.4 MG CAP PO SCH (21:50)
[2016-09-21] VITALS (7 sets, daily range): BP systolic 99–160; BP diastolic 55–76; PULSE 67–83; RESP 16–18; TEMP 98.1–98.7; O2SAT 94–97
[2016-09-21] MEDS: SODIUM BICARBONATE 650 MG TAB PO SCH ×2 (05:24→13:12)
[2016-09-21] MEDS: ACETAMINOPHEN/HYDROcodone 325 MG/10 MG TAB PO PRN ×2 (05:25→12:02)
[2016-09-21] MEDS: ASPIRIN EC 81 MG TABEC PO SCH (08:16)
[2016-09-21] MEDS: GABAPENTIN 300 MG CAP PO SCH (08:16)
[2016-09-21] MEDS: LOSARTAN 25 MG TAB PO SCH (08:16)
[2016-09-21] MEDS: CLOPIDOGREL 75 MG TAB PO SCH (08:16)
[2016-09-21] MEDS: PANTOPRAZOLE SOD 40 MG DELAYED RELEASE TAB PO SCH (08:16)
[2016-09-21] MEDS: FUROSEMIDE 20 MG TAB PO SCH (08:16)
[2016-09-21] MEDS: CARVEDILOL 12.5 MG TAB PO SCH (08:16)
[2016-09-21] MEDS: CALCIUM/VITAMIN D 250 MG/125 U TAB PO SCH (08:16)
[2016-09-21] MEDS: MINOXIDIL 2.5 MG TAB PO SCH (08:16)
[2016-09-21] MEDS: SODIUM CHLORIDE 0.9% FLUSH 10 ML FLUSH IVF PRN (08:17)
[2016-09-21] MEDS: HEPARIN SODIUM - SQ 10,000 UNITS/ML VIAL SQ SCH (08:17)
[2016-09-21] MEDS: CYCLOBENZAPRINE HCL 10 MG TAB PO SCH ×3 (08:17→17:04)
[2016-09-21] MEDS: hydrALAZINE HCL 100 MG TAB PO SCH ×3 (08:17→17:04)
[2016-09-21] MEDS: DOCUSATE SODIUM 50 MG/SENNA 8.6 MG TAB PO SCH (08:17)
--- NOTE | 2016-09-21 13:41 | HHI.PR ---
Subjective Remarks patient feeling better, po 100% no fever, voiding well no cough up and ambulating working on his lap top computer Objective Vitals Vital Signs Date Time Temp Pulse Resp B/P Pulse Ox O2 Delivery O2 Flow Rate FiO2 09/21/16 12:00 98.2 70 18 99/55 96 09/21/16 10:05 67 09/21/16 10:05 Room Air 09/21/16 08:15 94 21 09/21/16 08:00 98.4 69 18 134/71 97 09/21/16 04:00 98.6 77 18 126/75 95 09/21/16 00:00 98.7 83 16 125/68 97 09/20/16 21:00 91 09/20/16 21:00 Room Air 09/20/16 20:00 98.3 80 18 148/91 96 09/20/16 16:43 97 09/20/16 16:00 Room Air 09/20/16 16:00 98.5 80 20 128/70 96 I/O 09/20/16 09/20/16 09/20/16 09/21/16 09/21/16 09/21/16 07:00 15:00 23:00 07:00 15:00 23:00 Intake Total 508 ml 1140 ml 540 ml Output Total 700 ml 300 ml 480 ml Balance -192 ml 840 ml 60 ml Intake Oral 500 ml 1140 ml 540 ml IV Total 8 ml Output Urine Total 700 ml 300 ml 480 ml # Voids 3 # Bowel Movements 0 1 0 Result Diagram: 09/19/16 0700 09/19/16 0700 Imaging Last Impressions Chest X-Ray 09/19/16 0000 Signed Impressions: Service Date/Time: Monday, September 19, 2016 09:15 - CONCLUSION: No acute cardiopulmonary disease. Kiana Muñoz MD Renal Ultrasound 09/15/16 0000 Signed Impressions: Service Date/Time: Thursday, September 15, 2016 21:12 - CONCLUSION: 1. Prominent prostate. 2. Mild echogenic renal parenchyma again noted. Remigio Bill MD Objective Remarks awake and alert, NAD anicteric lungs no rales or wheezes regular rhythm abdomen soft, nontender no edema neuro exam- non focal Procedures None A/P Problem List: (1) Chest pain ICD Code: R07.9 Status: Acute (2) Pneumonia ICD Code: J18.9 Status: Acute (3) Hypertension ICD Code: I10 Status: Chronic (4) CAD (coronary artery disease) ICD Code: I25.10 Status: Acute (5) Leukocytosis ICD Code: D72.829 Status: Acute (6) Acute renal failure superimposed on chronic kidney disease ICD Code: N17.9 Status: Acute (7) Elevated troponin I level ICD Code: R74.8 Status: Acute (8) Hyperkalemia ICD Code: E87.5 Status: Acute (9) Secondary rhabdomyolysis ICD Code: M62.82 Status: Acute Assessment and Plan 56 years old male Sepsis secondary to Staph coag negative secondary Pneumonia: Continue supplemental oxygen, antibiotics, incentive spirometer.- clinically improved -09/17- blood culture + for Gram + cocci and pairs changed to staph coag negative - repeat blood cultures so far negative - Barrie URIAS 09/18 - appreciate ID- on Levaquin till 09/25 Chest pain with History of CAD. HTN: uncontrolled- Improved CHF- acute on chronic-- diastolic dysfunction SOB improved -pain seems to be more musculoskeletal. -slightly elevated enzymes from [facility] -Appreciate cardiology recommendations. -Continue medical management.- Plavix, Lasix 40 mg po bid, coreg, Cozaar, Hydralazine, Minoxidil. monitor and adjust, coreg Acute renal failure superimposed on chronic kidney disease stage IV: Appreciate nephrology recommendations. worsening renal functions Hyperkalemia: Resolved.MOnitor - Nephrology [facility] GERD: Protonix. DC today patient states he stays with a friend who is out of town and he does not have the zhu to the place Problem Qualifiers (1) Pneumonia: Qualified Code: J18.9 - Pneumonia due to infectious organism, unspecified laterality, unspecified part of lung (2) Acute renal failure superimposed on chronic kidney disease: Qualified Code: N17.9 - Acute renal failure superimposed on chronic kidney disease, unspecified CKD stage, unspecified acute renal failure type Khalif Moraes MD Sep 21, 2016 13:41
[2016-09-21] MEDS ORDERED: HYDR-3583 PO (13:47)
[2016-09-21] MEDS ORDERED: TAMS5CAP PO (13:47)
[2016-09-21] MEDS ORDERED: LEVA250T14 PO (13:47)
[2016-09-21] MEDS ORDERED: NEUR300C PO (13:47)
[2016-09-21] MEDS ORDERED: FURO20TA PO (13:47)
[2016-09-21] MEDS ORDERED: CARV12.5 PO (13:47)
[2016-09-21] MEDS ORDERED: ERGO1CAP30 PO (13:47)
--- NOTE | 2016-09-21 15:12 | PD.CARD.PN ---
Subjective Subjective Remarks alert in nad Objective Vital Signs / I&O Vital Signs Date Time Temp Pulse Resp B/P Pulse Ox O2 Delivery O2 Flow Rate FiO2 09/21/16 12:00 98.2 70 18 99/55 96 09/21/16 10:05 67 09/21/16 10:05 Room Air 09/21/16 08:15 94 21 09/21/16 08:00 98.4 69 18 134/71 97 09/21/16 04:00 98.6 77 18 126/75 95 09/21/16 00:00 98.7 83 16 125/68 97 09/20/16 21:00 91 09/20/16 21:00 Room Air 09/20/16 20:00 98.3 80 18 148/91 96 09/20/16 16:43 97 09/20/16 16:00 Room Air 09/20/16 16:00 98.5 80 20 128/70 96 I/O 09/20/16 09/20/16 09/20/16 09/21/16 09/21/16 09/21/16 07:00 15:00 23:00 07:00 15:00 23:00 Intake Total 508 ml 1140 ml 540 ml Output Total 700 ml 300 ml 480 ml Balance -192 ml 840 ml 60 ml Intake Oral 500 ml 1140 ml 540 ml IV Total 8 ml Output Urine Total 700 ml 300 ml 480 ml # Voids 3 # Bowel Movements 0 1 0 Physical Exam GENERAL: SKIN: Warm and dry. HEAD: Normocephalic. EYES: No scleral icterus. No injection or drainage. NECK: Supple, trachea midline. No JVD or lymphadenopathy. CARDIOVASCULAR: Regular rate and rhythm without murmurs, gallops, or rubs. RESPIRATORY: Breath sounds equal bilaterally. No accessory muscle use. GASTROINTESTINAL: Abdomen soft, non-tender, nondistended. MUSCULOSKELETAL: No cyanosis, or edema. BACK: Nontender without obvious deformity. No CVA tenderness. Assessment and Plan Problem List: (1) Troponin level elevated (2) NSTEMI (non-ST elevated myocardial infarction) (3) Xbqju-xf-bvebiue kidney injury (4) Cardiac disease (5) CAD (coronary artery disease) (6) Hyperkalemia (7) CKD (chronic kidney disease) (8) Pneumonia (9) Chest pain (10) Anemia Assessment and Plan 1.) CAD - suspect elavted trop due to cri, chest pain due to pneumonia, i explained i cnnot r/o ischemic etiology without lhc which would be high risk for temporary or permanent dialysis; patient refuses. REC continue dapt due to acs, cad, coreg, lipitor, norvasc, hydralazine, add minoxidil for better bp control 2.) HTN - improving, on losartan now, defer continuation to nephrology based on risks/benefits ratio in context of cri Problem Qualifiers (1) Pneumonia: Qualified Code: J18.9 - Pneumonia due to infectious organism, unspecified laterality, unspecified part of lung Keegan Rodriguez MD Sep 21, 2016 15:12
[2016-09-21] MEDS: LEVOFLOXACIN 250 MG TAB PO SCH (17:04)
--- NOTE | 2016-09-21 17:34 | HHI.DS ---
Discharge Summary Admission Date Sep 14, 2016 at 16:19 Discharge Date: Sep 21, 2016 Admitting Diagnosis pneumonia, acute on chronic any disease, chest pain (1) Pneumonia ICD Code: J18.9 Diagnosis: Principal (2) CAD (coronary artery disease) ICD Code: I25.10 Diagnosis: Principal (3) Hypertension ICD Code: I10 Diagnosis: Secondary (4) Leukocytosis ICD Code: D72.829 Diagnosis: Secondary (5) Acute renal failure superimposed on chronic kidney disease ICD Code: N17.9 Diagnosis: Secondary (6) Hyperkalemia ICD Code: E87.5 Diagnosis: Secondary (7) Secondary rhabdomyolysis ICD Code: M62.82 Diagnosis: Secondary Procedures None Brief History - From Admission Patient is a 56-year-old male who presented to the emergency department with complaint of chest pain, back pain, and dyspnea. He states that he has had chest pain off and on for the past year, but worse over the past 3-4 days. Back pain is chronic and he denies any new injury. He reports swelling in his extremities over the past few days which has coincided with increased dyspnea. He feels weak and states that he can't really walk because of the pain. He describes chest pain that is substernal and radiates to the back. Currently rates the chest pain at 8/10. Nothing seems to help or exacerbate the pain. CBC/BMP: 09/19/16 0700 09/19/16 0700 Significant Findings Laboratory Tests Test 09/19/16 07:00 White Blood Count 11.5 TH/MM3 (4.0-11.0) Red Blood Count 2.67 MIL/MM3 (4.50-5.90) Hemoglobin 8.6 GM/DL (13.0-17.0) Hematocrit 26.3 % (39.0-51.0) Chloride Level 111 MEQ/L (98-107) Blood Urea Nitrogen 23 MG/DL (7-18) Creatinine 4.03 MG/DL (0.60-1.30) Estimat Glomerular Filtration 19 ML/MIN (>89) Rate Calcium Level 7.9 MG/DL (8.5-10.1) Albumin 1.6 GM/DL (3.4-5.0) Imaging Last Impressions Chest X-Ray 09/19/16 0000 Signed Impressions: Service Date/Time: Monday, September 19, 2016 09:15 - CONCLUSION: No acute cardiopulmonary disease. Kiana Muñoz MD Renal Ultrasound 09/15/16 0000 Signed Impressions: Service Date/Time: Thursday, September 15, 2016 21:12 - CONCLUSION: 1. Prominent prostate. 2. Mild echogenic renal parenchyma again noted. Remigio Bill MD PE at Discharge awake and alert, NAD anicteric lungs no rales or wheezes regular rhythm abdomen soft, nontender no edema neuro exam- non focal Pt update on day of discharge awake and alert, up and ambulating with no shortness of breath or chest pain good po voiding well Hospital Course 56 years old male Sepsis secondary to Staph coag negative secondary Pneumonia: Continue supplemental oxygen, antibiotics, incentive spirometer.- clinically improved -09/17- blood culture + for Gram + cocci and pairs changed to staph coag negative - repeat blood cultures so far negative - Barrie URIAS 09/18 - appreciate ID- on Levaquin till 09/25 Chest pain with History of CAD. HTN: uncontrolled- Improved CHF- acute on chronic-- diastolic dysfunction SOB improved -pain seems to be more musculoskeletal. -slightly elevated enzymes from [facility]REE -Appreciate cardiology recommendations. -Continue medical management.- Plavix, Lasix 40 mg po bid, coreg, Cozaar, Hydralazine, Minoxidil. monitor and adjust, coreg Acute renal failure superimposed on chronic kidney disease stage IV: Appreciate nephrology recommendations. worsening renal functions Hyperkalemia: Resolved.MOnitor - Nephrology ff GERD: Protonix. DC today patient states he stays with a friend who is out of town and he does not have the zhu to the place Pt Condition on Discharge: Stable Discharge Disposition: Discharge Home Discharge Time: <= 30 minutes Discharge Instructions DIET: Follow Instructions for: Heart Healthy Diet, Renal Failure Diet Speech Therapy-Diet Recommends: Regular Activities you can perform: Weight Bearing as Rachid Activities to Avoid: Strenuous Activity Follow up Referrals: Nephrology - 2 Weeks with NEIL PCP Follow-up - 09/24/16 with M<DONALDO New Medications: Carvedilol (Coreg) 12.5 Mg Tab 25 MG PO BID HTN Days 30 TAB Ergocalciferol (Ergocalciferol) 50,000 Unit Cap 42048 UNITS PO Q7D VITre Days 30 Ref 0 CAP Furosemide (Furosemide) 20 Mg Tab 40 MG PO BID HTN Days 30 TAB Gabapentin (Neurontin) 300 Mg Cap 600 MG PO DAILY NEURPAIN Days 30 CAP Hydrocodone-Acetaminophen (Hydrocodone-Acetaminophen) 10-325 mg Tab 1 TAB PO Q6H PRN PAIN SCALE 7 TO 10 #20 Ref 0 TAB Levofloxacin (Levaquin) 250 Mg Tablet 250 MG PO DAILY@16 Infection Days 4 Ref 0 TAB Tamsulosin (Flomax) 0.4 Mg Cap 0.4 MG PO HS URO Days 30 CAP Continued Medications: Amlodipine (Amlodipine) 10 Mg Tab 10 MG PO DAILY Blood Pressure Management #[address] (Aspirin EC) 81 Mg Tabdr 81 MG PO DAILY #30 TAB Atorvastatin (Lipitor) 80 Mg Tab 80 MG PO HS #30 TAB Calcium Carbonate-Cholecalciferol (Calcium + D3) 600-200 Mg-Unit Tab 1 TAB PO BID TAB Cholecalciferol (Vitamin D3) 1,000 Unit Tab 2000 UNITS PO DAILY #60 TAB Clopidogrel (Clopidogrel) 75 Mg Tab 75 MG PO DAILY Blood Clot Prevention #30 Ref 5 TAB Cyclobenzaprine (Flexeril) 10 Mg Tab 10 MG PO TID Muscle Spasm #90 Ref 3 TAB Hydralazine (Hydralazine) 100 Mg Tab 100 MG PO TID Take with meals Blood Pressure Management #90 Ref 5 TAB Mirtazapine (Mirtazapine) 15 Mg Tab 15 MG PO HS Depression Control #30 Ref 0 TAB Pantoprazole (Protonix) 40 Mg Tab 40 MG PO DAILY Reflux #30 Ref 3 TAB Discontinued Medications: Carvedilol (Carvedilol) 6.25 Mg Tab 6.25 MG PO BID #60 Ref 0 TAB Furosemide (Furosemide) 20 Mg Tab 20 MG PO DAILY Patient is to take 1 tablet MWF of each week. #15 Ref 5 TAB Gabapentin (Gabapentin) 600 Mg Tab 600 MG PO TID #90 Ref 4 TAB Losartan (Losartan) 100 Mg Tab 100 MG PO DAILY Blood Pressure Management #30 Ref 6 TAB Potassium Chloride ER (Potassium Chloride ER) 20 Meq Tab 20 MEQ PO DAILY Electrolyte Replacement #30 Ref 0 TAB Tamsulosin (Flomax) 0.4 Mg Cap 2 TAB PO HS Manage Prostate Problems #60 Ref 3 CAP Lacierda,Alfea M. MD Sep 21, 2016 17:34
== END 2016-09-21 20:15 | disposition home or self-care (01) | DRG 871 ==
LOC: NEPE 11:29 → NEDA 16:19 → N04A 19:37
PROVIDERS: ADMIT Internal Medicine; ATTEND Internal Medicine
DX: A41.2 Sepsis due to unspecified staphylococcus (principal); J18.9 Pneumonia, unspecified organism; I50.33 Acute on chronic diastolic (congestive) heart failure; E87.2 Acidosis; M62.82 Rhabdomyolysis; N17.9 Acute kidney failure, unspecified; N18.4 Chronic kidney disease, stage 4 (severe); G62.9 Polyneuropathy, unspecified; E87.5 Hyperkalemia; K21.9 Gastro-esophageal reflux disease without esophagitis; I25.10 Atherosclerotic heart disease of native coronary artery without angina pectoris; E78.5 Hyperlipidemia, unspecified; G89.4 Chronic pain syndrome; M54.5 Low back pain; Z87.891 Personal history of nicotine dependence; N40.0 Benign prostatic hyperplasia without lower urinary tract symptoms; D64.9 Anemia, unspecified; E55.9 Vitamin D deficiency, unspecified; Z59.0 Homelessness; I12.9 Hypertensive chronic kidney disease with stage 1 through stage 4 chronic kidney disease, or unspecified chronic kidney disease
CPT/HCPCS: 36600; 71010; 71020; 76775; 80048; 80053; 80069; 80202; 80307; 81001; 82306; 82550; 82552; 82728; 82805; 83540; 83550; 83605; 83735; 83880; 83970; 84165; 84484; 85014; 85018; 85025; 85027; 85610; 85652; 85730; 86021; 86140; 86160; 87040; 87205; 87449; 93005; 93306; 94150; 96365; 96367; 96368; 96375; J0456; J1644; J2270; J2543; J3370; J7030; J7040; J7050; Q4081

== ENCOUNTER 2016-10-21 18:44 | Inpatient (IN) | payer OTHER ==
[2016-10-21] VITALS (11 sets, daily range): BP systolic 142–174; BP diastolic 78–91; PULSE 72–98; RESP 15–20; TEMP 98.2–98.4; O2SAT 96–99
[~2016-10-21] VITALS: Ht 188 cm; Wt 108.0 kg
[~2016-10-21 18:44] MED LIST changes: +CARV12.5 PO; -CARV6.252 PO; -DULO1CAP PO; +ERGO1CAP30 PO; +HYDR-3583 PO; +LEVA250T14 PO; +METH125I2 IM; +NEUR300C PO; -PRED5TAB PO
[2016-10-21] MEDS ORDERED: MORPHINE SULFATE 4 MG/ML INJ IV PUSH ONE (19:15)
[2016-10-21] MEDS ORDERED: ASPIRIN 81 MG CHEW TAB PO ONE (19:15)
[2016-10-21] MEDS ORDERED: SODIUM CHLORIDE 0.9% FLUSH 10 ML FLUSH IVF PRN (19:15)
[2016-10-21] MEDS ORDERED: ONDANSETRON HCL 4 MG/2 ML VIAL IV PUSH ONE (19:15)
--- NOTE | 2016-10-21 19:39 | PD ---
HPI Chief Complaint: Chest Pain Time Seen by Provider: 19:07 Travel History International Travel<30 days: No Contact w/Intl Traveler<30days: No Traveled to known affect area: No History of Present Illness HPI The patient is a 56-year-old [place] male who presents to the emergency department for chest pain and increasing creatinine levels. The patient does have a history of remote dialysis for 5 weeks in 1991. The patient regained his kidney function, however, over the last several years his kidney function has been diminishing. The patient is followed by design engineer, Dr. Marie, and his primary physician, Dr. Quintero. The patient had outpatient laboratory evaluation today which revealed a creatinine of 5.69, up from his baseline of 4.0. The patient was advised last month when he was admitted for pneumonia that he may need to undergo dialysis soon. He does note increasing edema of the lower extremities, increasing shortness of breath with exertion, occasional chest pain, and difficulty urinating. The patient thinks his kidney functions are result of elevated blood pressure, he currently takes losartan, amlodipine, hydralazine, and Coreg. The patient's symptoms are moderate, increasing over the last several weeks, and there are no current alleviating factors. PFSH Past Medical History Hx Anticoagulant Therapy: Yes (on Plavix) Asthma: No Anxiety: No Depression: Yes Heart Rhythm Problems: No Cancer: No Cardiac Catheterization: Yes Cardiovascular Problems: Yes (cardiac cath in september 2015) High Cholesterol: Yes Chest Pain: Yes Congestive Heart Failure: Yes Cerebrovascular Accident: No Coronary Artery Disease: Yes Diabetes: Yes Diminished Hearing: No Endocrine: Yes GERD: Yes Genitourinary: No Headaches: Yes Hiatal Hernia: No Heparin Induced Thrombocytopen: No Hypertension: Yes (ON AND OFF) Immune Disorder: No Implanted Vascular Access Dvce: No Musculoskeletal: Yes (chronic lumbar pain) Neurologic: Yes (neuropathy) Psychiatric: Yes Reproductive: No Respiratory: Yes Immunizations Current: No Migraines: No Thyroid Disease: No Triglycerides - High: Yes Ulcer: No Past Surgical History Coronary Artery Bypass Graft: No Other Surgery: No Social History Alcohol Use: Yes (occassionally) Tobacco Use: No (quit recently, used to smoke 4-5 cigs a day) Substance Use: No Allergies-Medications (Allergen,Severity, Reaction): Coded Allergies: *MDRO Multi-Drug Resistant Organism (Verified Adverse Reaction, Unknown, ) 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 Reported Meds & Prescriptions Reported Meds & Active Scripts Active Flomax (Tamsulosin HCl) 0.4 Mg Cap 0.4 Mg PO HS 30 Days Furosemide 20 Mg Tab 40 Mg PO BID 30 Days Ergocalciferol 50,000 Unit Cap 50,000 Units PO Q7D 30 Days Coreg (Carvedilol) 12.5 Mg Tab 25 Mg PO BID 30 Days Clopidogrel (Clopidogrel Bisulfate) 75 Mg Tab 75 Mg PO DAILY Amlodipine (Amlodipine Besylate) 10 Mg Tab 10 Mg PO DAILY Hydralazine (Hydralazine HCl) 100 Mg Tab 100 Mg PO TID Take with meals Vitamin D3 (Cholecalciferol) 1,000 Unit Tab 2,000 Units PO DAILY Aspirin EC (Aspirin) 81 Mg Tabdr 81 Mg PO DAILY Lipitor (Atorvastatin Calcium) 80 Mg Tab 80 Mg PO HS Protonix (Pantoprazole Sodium) 40 Mg Tab 40 Mg PO DAILY Flexeril (Cyclobenzaprine HCl) 10 Mg Tab 10 Mg PO TID Reported Losartan (Losartan Potassium) 100 Mg Tab 100 Mg PO DAILY Potassium Chloride ER (Potassium Chloride) 20 Meq Tab 20 Meq PO DAILY Gabapentin 600 Mg Tab 600 Mg PO TID Calcium + D3 (Calcium Carbonate-Cholecalciferol) 600-200 Mg-Unit Tab 1 Tab PO BID Mirtazapine 15 Mg Tab 15 Mg PO HS Review of Systems Except as stated in HPI: all other systems reviewed are Neg General / Constitutional: No: Fever Cardiovascular: Positive: Chest Pain or Discomfort, Dyspnea on exertion Respiratory: Positive: Shortness of Breath Gastrointestinal: Positive: Nausea, No: Vomiting Genitourinary: Positive: Decreased Urinary Output Musculoskeletal: Positive: Edema Physical Exam Narrative GENERAL: Awake, alert, pleasant 56-year-old male who appears his stated age and is in no acute respiratory distress. SKIN: Focused skin assessment warm/dry. HEAD: Atraumatic. Normocephalic. EYES: No injection or drainage. ENT: No nasal bleeding or discharge. Mucous membranes pink and moist. NECK: Trachea midline. No JVD. CARDIOVASCULAR: Regular rate and rhythm. No murmur appreciated. RESPIRATORY: No accessory muscle use. Clear to auscultation. Breath sounds equal bilaterally. GASTROINTESTINAL: Abdomen soft, non-tender, nondistended. No rebound tenderness. MUSCULOSKELETAL: No obvious deformities. No clubbing. No cyanosis. Mild lower extremity pitting edema. NEUROLOGICAL: Awake and alert. No obvious cranial nerve deficits. Motor grossly within normal limits. Normal speech. PSYCHIATRIC: Appropriate mood and affect; insight and judgment normal. Data Data Last Documented VS Vital Signs Date Time Temp Pulse Resp B/P (MAP) Pulse Ox O2 Delivery O2 Flow Rate FiO2 10/21/16 18:46 98.4 98 15 142/87 (105) 99 Orders Orders Electrocardiogram (10/21/16 19:14) Ckmb (Isoenzyme) Profile (10/21/16 19:14) Complete Blood Count With Diff (10/21/16 19:14) Comprehensive Metabolic Panel (10/21/16 19:14) Magnesium (Mg) (10/21/16 19:14) Prothrombin Time / Inr (Pt) (10/21/16 19:14) Act Partial Throm Time (Ptt) (10/21/16 19:14) Troponin I (10/21/16 19:14) Chest, Single Ap (10/21/16 19:14) Ecg Monitoring (10/21/16 19:14) Bilateral Bp Monitoring (10/21/16 19:14) Iv Access Insert/Monitor (10/21/16 19:14) Oximetry (10/21/16 19:14) Oxygen Administration (10/21/16 19:14) Aspirin Chew (Aspirin Chew) (10/21/16 19:15) Morphine Inj (Morphine Inj) (10/21/16 19:15) Sodium Chloride 0.9% Flush (Ns Flush) (10/21/16 19:15) Ondansetron Inj (Zofran Inj) (10/21/16 19:15) CKMB (10/21/16 19:35) CKMB% (10/21/16 19:35) Labs Laboratory Tests Test 10/21/16 19:35 White Blood Count 5.9 TH/MM3 Red Blood Count 2.91 MIL/MM3 Hemoglobin 9.5 GM/DL Hematocrit 28.8 % Mean Corpuscular Volume 98.9 FL Mean Corpuscular Hemoglobin 32.6 PG Mean Corpuscular Hemoglobin Concent 33.0 % Red Cell Distribution Width 15.3 % Platelet Count 273 TH/MM3 Mean Platelet Volume 8.6 FL Neutrophils (%) (Auto) 86.8 % Lymphocytes (%) (Auto) 12.4 % Monocytes (%) (Auto) 0.6 % Eosinophils (%) (Auto) 0.0 % Basophils (%) (Auto) 0.2 % Neutrophils # (Auto) 5.1 TH/MM3 Lymphocytes # (Auto) 0.7 TH/MM3 Monocytes # (Auto) 0.0 TH/MM3 Eosinophils # (Auto) 0.0 TH/MM3 Basophils # (Auto) 0.0 TH/MM3 CBC Comment DIFF FINAL Differential Comment Prothrombin Time 10.0 SEC Prothromb Time International Ratio 0.9 RATIO Activated Partial Thromboplast Time 29.5 SEC Blood Urea Nitrogen 38 MG/DL Creatinine 5.99 MG/DL Random Glucose 280 MG/DL Total Protein 5.7 GM/DL Albumin 1.8 GM/DL Calcium Level 7.2 MG/DL Magnesium Level 2.1 MG/DL Alkaline Phosphatase 86 U/L Aspartate Amino Transf (AST/SGOT) 18 U/L Alanine Aminotransferase (ALT/SGPT) 16 U/L Total Bilirubin 0.1 MG/DL Sodium Level 136 MEQ/L Potassium Level 4.9 MEQ/L Chloride Level 110 MEQ/L Carbon Dioxide Level 17.1 MEQ/L Anion Gap 9 MEQ/L Estimat Glomerular Filtration Rate 12 ML/MIN Protein Corrected Calcium 7.9 MG/DL Total Creatine Kinase 183 U/L Troponin I 0.02 NG/ML MDM Medical Decision Making Medical Screen Exam Complete: Yes Emergency Medical Condition: Yes Medical Record Reviewed: Yes Interpretation(s) EKG reveals normal sinus rhythm with a rate in 92. No peaked T waves noted. Q wave noted in lead 3. Laboratory Tests Test 10/21/16 19:35 White Blood Count 5.9 TH/MM3 Red Blood Count 2.91 MIL/MM3 Hemoglobin 9.5 GM/DL Hematocrit 28.8 % Mean Corpuscular Volume 98.9 FL Mean Corpuscular Hemoglobin 32.6 PG Mean Corpuscular Hemoglobin Concent 33.0 % Red Cell Distribution Width 15.3 % Platelet Count 273 TH/MM3 Mean Platelet Volume 8.6 FL Neutrophils (%) (Auto) 86.8 % Lymphocytes (%) (Auto) 12.4 % Monocytes (%) (Auto) 0.6 % Eosinophils (%) (Auto) 0.0 % Basophils (%) (Auto) 0.2 % Neutrophils # (Auto) 5.1 TH/MM3 Lymphocytes # (Auto) 0.7 TH/MM3 Monocytes # (Auto) 0.0 TH/MM3 Eosinophils # (Auto) 0.0 TH/MM3 Basophils # (Auto) 0.0 TH/MM3 CBC Comment DIFF FINAL Differential Comment Prothrombin Time 10.0 SEC Prothromb Time International Ratio 0.9 RATIO Activated Partial Thromboplast Time 29.5 SEC Blood Urea Nitrogen 38 MG/DL Creatinine 5.99 MG/DL Random Glucose 280 MG/DL Total Protein 5.7 GM/DL Albumin 1.8 GM/DL Calcium Level 7.2 MG/DL Magnesium Level 2.1 MG/DL Alkaline Phosphatase 86 U/L Aspartate Amino Transf (AST/SGOT) 18 U/L Alanine Aminotransferase (ALT/SGPT) 16 U/L Total Bilirubin 0.1 MG/DL Sodium Level 136 MEQ/L Potassium Level 4.9 MEQ/L Chloride Level 110 MEQ/L Carbon Dioxide Level 17.1 MEQ/L Anion Gap 9 MEQ/L Estimat Glomerular Filtration Rate 12 ML/MIN Protein Corrected Calcium 7.9 MG/DL Total Creatine Kinase 183 U/L Troponin I 0.02 NG/ML Last Impressions Chest X-Ray 10/21/161913 Signed Impressions: Service Date/Time: September 19:28 - CONCLUSION: Underinflation with mild atelectasis at the lung bases. Otherwise, no acute finding is identified. Troy Cruz MD Differential Diagnosis Differential diagnosis includes acute on chronic renal failure, pulmonary edema , congestive heart failure, cardiomyopathy, hypertensive urgency, hypertensive emergency, hyperkalemia. Narrative Course IV was established, labs are drawn and sent, and the patient was placed on cardiac telemetry monitoring and continuous pulse oximetry monitoring. EKG was ordered and interpreted. I reviewed the patient's outpatient creatinine that was performed earlier today, was 5.69, his creatinines that were performed in August were approximately 4. He appears to have increasing acute on chronic renal failure may need to undergo dialysis in the near future. Creatinine is elevated at 5.99, he does have mild shortness of breath but there is no evidence of pulmonary edema or acute hyperkalemia. No indication for emergent dialysis, may need dialysis in the near future. Therefore, the patient will be admitted with a consultation to his design engineer, Dr. Marie. He will need a discussion regarding peritoneal dialysis versus hemodialysis. If patient needs hemodialysis he may need a repeat catheter and eventual vascular surgery consultation for possible AV fistula. I discussed the patient with the on-call medical service who agrees with admission. Physician Communication Physician Communication The on-call medical service was paged for admission. I discussed the patient with Dr. Stein who agrees with admission. Diagnosis Primary Impression: Acute renal failure superimposed on chronic kidney disease Qualified Codes: N17.9 - Acute kidney failure, unspecified; N18.5 - Chronic kidney disease, stage 5 Condition: Stable Ori Tarango MD Oct 21, 2016 19:39
--- NOTE | 2016-10-21 19:51 | RADRPT ---
EXAM DATE/TIME: 10/21/2016 19:28 [facility] COMPARISON: CHEST SINGLE AP, September 14, 2016, 12:28. INDICATIONS : Chest pain MEDICAL HISTORY : Hypertension. Cardiovascular disease. SURGICAL HISTORY : None. ENCOUNTER: Initial ACUITY: >1 year PAIN SCORE: 4/10 LOCATION: chest FINDINGS: Portable AP view of the chest demonstrates a normal-sized cardiac silhouette. No effusion, consolidat ion, or pneumothorax is visualized. The bones and soft tissues demonstrate no acute abnormality. Ther e is mild atelectasis at the lung bases likely secondary to underinflation. CONCLUSION: Underinflation with mild atelectasis at the lung bases. Otherwise, no acute finding is identified. Troy Cruz MD on October 21, 2016 at 19:48 Board Certified Radiologist. This report was verified electronically.
[2016-10-21 20:54] LABS: AUTOMATED NEUTROPHIL # 5.1 TH/MM3 (1.8-7.7); BASOPHIL % 0.2 % (0.0-2.0); HEMATOCRIT 28.8 % (39.0-51.0); HEMO FLAGS DIFF FINAL; LYMPH % 12.4 % (9.0-44.0); LYMPHOCYTE # 0.7 TH/MM3 (1.0-4.8); MEAN CELL VOLUME 98.9 FL (80.0-100.0); MEAN CORPUSCULAR HEMOGLOBIN 32.6 PG (27.0-34.0); MONO % 0.6 % (0.0-8.0); NEUT % 86.8 % (16.0-70.0); PLATELET COUNT 273 TH/MM3 (150-450); RED BLOOD COUNT 2.91 MIL/MM3 (4.50-5.90); RED CELL DISTRIBUTION WIDTH 15.3 % (11.6-17.2); WHITE BLOOD COUNT 5.9 TH/MM3 (4.0-11.0)
[2016-10-21 21:04] LABS: APTT (PATIENT) 29.5 SEC (24.3-30.1); INTERNATIONAL NORMALIZED RATIO 0.9 RATIO
[2016-10-21 21:20] LABS: ALKALINE PHOSPHATASE 86 U/L (45-117); ALT (GPT) 16 U/L (12-78); ANION GAP 9 MEQ/L (5-15); AST (GOT) 18 U/L (15-37); BICARBONATE 17.1 MEQ/L (21.0-32.0); BLOOD UREA NITROGEN 38 MG/DL (7-18); CALCIUM-PROTEIN CORRECTED 7.9 MG/DL (8.5-10.1); CHLORIDE 110 MEQ/L (98-107); CREATINE KINASE 183 U/L (39-308); GLOMERULAR FILTRATION RATE 12 ML/MIN (>89); MAGNESIUM 2.1 MG/DL (1.5-2.5); POTASSIUM 4.9 MEQ/L (3.5-5.1); SODIUM (NA) 136 MEQ/L (136-145); TOTAL BILIRUBIN ADULT 0.1 MG/DL (0.2-1.0)
[2016-10-21] MEDS ORDERED: NALOXONE HCL 0.4 MG/ML AMP IV PRN (21:45)
[2016-10-21] MEDS ORDERED: SODIUM CHLORIDE 0.9% FLUSH 10 ML FLUSH IV FLUSH PRN (21:45)
[2016-10-22] VITALS (7 sets, daily range): BP systolic 162–174; BP diastolic 85–96; PULSE 67–74; RESP 16–18; TEMP 97.7–98.4; O2SAT 97–98
--- NOTE | 2016-10-22 02:32 | HHI.HP ---
[facility] Service [place] [place] [facility] Primary Care Physician Rosalba Quintero MD Admission Diagnosis acute on chronic renal failure stage V Diagnoses: Travel History International Travel<30 Days: No Contact w/Intl Traveler <30 Da: No Traveled to Known Affected Are: No History of Present Illness nauseous weak short of breath diarrhea 3-5x a day, since last time here amonth ago greenish in color was on antibiotics did not have stools sent outpatient no vomiting just nausea also ruq pain- constant, like a knot, reports of urinary burning and pain decreased urination no blood in it but noticed change in color couple of weeks ago, had diazziness, chest pressure adn fell Review of Systems Except as stated in HPI: all other systems reviewed are Neg Past Family Social History Past Medical History htn cad- on medical management heart murmur valvular heart dx by echo copd prostate enlargement Past Surgical History colonoscopy coronary angiogram Allergies: Coded Allergies: *MDRO Multi-Drug Resistant Organism (Verified Adverse Reaction, Unknown, ) 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 Family History mom-crohns , dm, Social History quit smoking 1 yr ago, social drinker no drugs Physical Exam Vital Signs Vital Signs Date Time Temp Pulse Resp B/P (MAP) Pulse Ox O2 Delivery O2 Flow Rate FiO2 10/21/16 23:56 98.2 72 18 174/91 (118) 96 10/21/16 23:20 77 10/21/16 23:00 80 16 165/80 (108) 98 Room Air 10/21/16 22:55 84 19 170/82 (111) 98 10/21/16 22:00 84 17 170/85 (113) 98 Room Air 10/21/16 21:00 86 19 170/87 (114) 97 Room Air 10/21/16 20:00 88 17 172/90 (117) 98 Room Air 10/21/16 19:20 Room Air 10/21/16 19:20 90 20 160/78 (105) 98 Room Air 10/21/16 19:20 Room Air 10/21/16 19:00 92 20 146/80 (102) 99 Room Air 10/21/16 18:46 98.4 98 15 142/87 (105) 99 Physical Exam GENERAL: This is a well-nourished, well-developed patient, in no apparent distress. SKIN: No rashes, ecchymoses or lesions. Cool and dry. HEAD: Atraumatic. Normocephalic. No temporal or scalp tenderness. EYES: No scleral icterus. No injection or drainage. ENT: Nose without bleeding, purulent drainage or septal hematoma. Airway patent. NECK: Trachea midline. No JVD CVS: Regular rate and rhythm, no murmur appreciated. RESPIRATORY: Clear to auscultation. Breath sounds equal bilaterally. No wheezes , rales, or rhonchi. GASTROINTESTINAL: Abdomen soft, non-tender, nondistended. No guarding. MUSCULOSKELETAL: Extremities without clubbing, cyanosis, or edema. No calf tenderness. NEUROLOGICAL: Awake and alert. Motor and sensory grossly within normal limits. Normal speech. Laboratory Laboratory Tests Test 10/21/16 19:35 White Blood Count 5.9 Red Blood Count 2.91 Hemoglobin 9.5 Hematocrit 28.8 Mean Corpuscular Volume 98.9 Mean Corpuscular Hemoglobin 32.6 Mean Corpuscular Hemoglobin Concent 33.0 Red Cell Distribution Width 15.3 Platelet Count 273 Mean Platelet Volume 8.6 Neutrophils (%) (Auto) 86.8 Lymphocytes (%) (Auto) 12.4 Monocytes (%) (Auto) 0.6 Eosinophils (%) (Auto) 0.0 Basophils (%) (Auto) 0.2 Neutrophils # (Auto) 5.1 Lymphocytes # (Auto) 0.7 Monocytes # (Auto) 0.0 Eosinophils # (Auto) 0.0 Basophils # (Auto) 0.0 CBC Comment DIFF FINAL Differential Comment Prothrombin Time 10.0 Prothromb Time International Ratio 0.9 Activated Partial Thromboplast Time 29.5 Blood Urea Nitrogen 38 Creatinine 5.99 Random Glucose 280 Total Protein 5.7 Albumin 1.8 Calcium Level 7.2 Magnesium Level 2.1 Alkaline Phosphatase 86 Aspartate Amino Transf (AST/SGOT) 18 Alanine Aminotransferase (ALT/SGPT) 16 Total Bilirubin 0.1 Sodium Level 136 Potassium Level 4.9 Chloride Level 110 Carbon Dioxide Level 17.1 Anion Gap 9 Estimat Glomerular Filtration Rate 12 Protein Corrected Calcium 7.9 Total Creatine Kinase 183 Creatine Kinase MB 1.0 Troponin I 0.02 Result Diagram: 10/21/16193410/21/161934 Imaging Last 48 hours Impressions Chest X-Ray 10/21/161913 Signed Impressions: Service Date/Time: September 19:28 - CONCLUSION: Underinflation with mild atelectasis at the lung bases. Otherwise, no acute finding is identified. MD Ledy Coburn VTE Risk Assessment Ledy VTE Risk Assessment: Mod/High Risk (score >= 2) Caprini Risk Assessment Model Point Value = 1 Point Value = 2 Point Value = 3 Point Value = 5 Age 41-60 Minor surgery BMI > 25 kg/m2 Swollen legs Varicose veins or History of unexplained or recurrent spontaneous Oral contraceptives or hormone replacement Sepsis (< 1 month) Serious lung disease, including pneumonia (< 1 month) Abnormal pulmonary function Acute myocardial infarction Congestive heart failure (< 1 month) History of inflammatory bowel disease Medical patient at bed rest Age 61-74 Arthroscopic surgery Major open surgery (> 45 min) Laparoscopic surgery (> 45 min) Malignancy Confined to bed (> 72 hours) Immobilizing plaster cast Central venous access Age >= 75 History of VTE Family history of VTE Factor V Leiden Prothrombin [id number] Lupus anticoagulant Anticardiolipin antibodies Elevated serum homocysteine Heparin-induced thrombocytopenia Other congenital or acquired thrombophilia Stroke (< 1 month) Elective arthroplasty Hip, pelvis, or leg fracture Acute spinal cord injury (< 1 month) Prophylaxis Regimen Total Risk Factor Score Risk Level Prophylaxis Regimen 0-1 Low Early ambulation 2 Moderate Order ONE of the following: *Sequential Compression Device (SCD) *Heparin 5000 units SQ BID 3-4 Higher Order ONE of the following medications: *Heparin 5000 units SQ TID *Enoxaparin/Lovenox 40 mg SQ daily (WT < 150 kg, CrCl > 30 mL/min) *Enoxaparin/Lovenox 30 mg SQ daily (WT < 150 kg, CrCl > 10-29 mL/min) *Enoxaparin/Lovenox 30 mg SQ BID (WT < 150 kg, CrCl > 30 mL/min) AND/OR *Sequential Compression Device (SCD) 5 or more Highest Order ONE of the following medications: *Heparin 5000 units SQ TID (Preferred with Epidurals) *Enoxaparin/Lovenox 40 mg SQ daily (WT < 150 kg, CrCl > 30 mL/min) *Enoxaparin/Lovenox 30 mg SQ daily (WT < 150 kg, CrCl > 10-29 mL/min) *Enoxaparin/Lovenox 30 mg SQ BID (WT < 150 kg, CrCl > 30 mL/min) AND *Sequential Compression Device (SCD) Assessment and Plan Assessment and Plan Impression: Acute on chronic renal failure Symptomatic worsening uremia Plan: Consult patient's airplane patroller. Likely this patient will need dialysis within the next week or so. Monitor electrolytes. DC potassium. Patient states he is no longer taking that as well. Therefore has discontinued this from med reconciliation. DC losartan. Again patient is normal when taking it at home. Would discontinue that from med rec as well. Patient on Lasix 40 mg twice a day at home. His latest echo did not reveal any CHF. Patient states he takes this for peripheral edema. At this point, I would hold Lasix. Would need to check with patient's airplane patroller and his symptoms prior to discharge to decide whether patient needs low-dose Lasix. Otherwise resume his home meds. DVT prophylaxiswith heparin. Discussed Condition With patient, ER MD Stein,Mili SEAY Oct 22, 2016 02:31
[2016-10-22] MEDS ORDERED: ACETAMINOPHEN 325 MG TAB PO PRN (02:45)
[2016-10-22] MEDS ORDERED: MIRTAZAPINE 15 MG TAB PO ONE (03:00)
[2016-10-22] MEDS: MORPHINE SULFATE 4 MG/ML INJ IV PUSH PRN ×3 (03:42→20:48)
[2016-10-22 06:17] LABS: AUTOMATED NEUTROPHIL # 13.4 TH/MM3 (1.8-7.7); BASOPHIL % 0.1 % (0.0-2.0); HEMATOCRIT 27.8 % (39.0-51.0); HEMO FLAGS DIFF FINAL; LYMPH % 9.9 % (9.0-44.0); LYMPHOCYTE # 1.6 TH/MM3 (1.0-4.8); MEAN CELL VOLUME 99.4 FL (80.0-100.0); MEAN CORPUSCULAR HEMOGLOBIN 32.5 PG (27.0-34.0); MEAN CORPUSCULAR HGB CONC 32.7 % (32.0-36.0); PLATELET COUNT 230 TH/MM3 (150-450); RED BLOOD COUNT 2.79 MIL/MM3 (4.50-5.90); RED CELL DISTRIBUTION WIDTH 14.8 % (11.6-17.2); WHITE BLOOD COUNT 15.7 TH/MM3 (4.0-11.0)
[2016-10-22 07:00] LABS: BICARBONATE 19.1 MEQ/L (21.0-32.0); POTASSIUM 6.5 MEQ/L (3.5-5.1)
[2016-10-22 07:19] LABS: CALCIUM-PROTEIN CORRECTED 8.3 MG/DL (8.5-10.1)
[2016-10-22] MEDS ORDERED: SODIUM POLYSTYRENE SULFONATE SUSP 15 GM/60 ML CUP PO ONE (08:45)
[2016-10-22] MEDS ORDERED: LOSARTAN 50 MG TAB PO SCH (09:00)
[2016-10-22] MEDS ORDERED: GABAPENTIN 300 MG CAP PO SCH ×2 (09:00)
[2016-10-22] MEDS: PANTOPRAZOLE SOD 40 MG DELAYED RELEASE TAB PO SCH (09:38)
[2016-10-22] MEDS: CYCLOBENZAPRINE HCL 10 MG TAB PO SCH ×3 (09:38→16:59)
[2016-10-22] MEDS: hydrALAZINE HCL 100 MG TAB PO SCH ×3 (09:39→16:59)
[2016-10-22] MEDS: CARVEDILOL 12.5 MG TAB PO SCH ×2 (09:39→20:47)
[2016-10-22] MEDS: SODIUM CHLORIDE 0.9% FLUSH 10 ML FLUSH IV FLUSH SCH ×2 (09:40→20:47)
[2016-10-22] MEDS: ASPIRIN EC 81 MG TABEC PO SCH (09:40)
[2016-10-22] MEDS: CLOPIDOGREL 75 MG TAB PO SCH (09:40)
--- NOTE | 2016-10-22 11:39 | EKG ---
Date Performed: 10/21/2016 Time Performed: 19:21:02 PTAGE: 56 years EKG: Sinus rhythm POSSIBLE LEFT ATRIAL ENLARGEMENT BORDERLINE ECG Compared to prior tracing no significant change PREVIOUS TRACING DOCTOR: Keegan Rodriguez Interpretating Date/Time 10/22/2016 11:38:43
[2016-10-22] MEDS: HEPARIN SODIUM - SQ 10,000 UNITS/ML VIAL SQ SCH ×2 (12:42→20:48)
--- NOTE | 2016-10-22 13:02 | PD.CONS ---
[facility] Service Nephrology Consult Requested By Dr. Stein Reason for Consult Known to our services for CKD Primary Care Physician Rosalba Quintero MD History of Present Illness The patient is a 56 yo AA male who is known to our services for CKD, HTN, proteinuria, and anemia. He has unfortunately had progressive renal decline over the past several months and presented to the ED on 10/21 by the urge of his PCP, Dr. Quintero, as it was noted on outpatient labs that he was in renal failure. Reports feeling fatigued, worsening swelling, and increased SOB since his discharge from here in August for PNA. At that admission, his Lasix was increased from 20mg MWF to 40mg BID (however states he is not always compliant with taking BID). He has not been on Losartan nor KCl since August admission. BP medications include Coreg 12.5mg BID, Hydralazine 100mg q8h, and Amlodipine 10mg QD. Says AM pressure are typically very high in the 190-200mmHg range, but improve to 140mmHg systolically in the afternoons. Denies any recent illness, no abx since August, no contrast exposure. Some nausea and decrease in appetite. Loose stools after abx in August, but no diarrhea nor vomiting. 10/21 SCr outpatient 5.69 eGFR 13 Admitting SCr 5.99 with eGFR 12 SCr at consult 5.81 eGFR 12 Hyperkalemia this AM at 6.5 that was corrected with Kionex and repeated at 5.1. Was not given K+ supplement nor ACEi or ARB since admission. Of note, states that he was on dialysis in 1992 for "toxin exposure" for [address] [facility]. We have been seeing this patient during hospitalizations and outpatient since Feb 2016 and has never been mentioned until today. (Kelley Lora) Review of Systems Constitutional: COMPLAINS OF: Fatigue Cardiovascular: COMPLAINS OF: Dyspnea on Exertion, Lower Extremity Edema Gastrointestinal: COMPLAINS OF: Nausea (Kelley Lora) Past Family Social History Allergies: Coded Allergies: *MDRO Multi-Drug Resistant Organism (Verified Adverse Reaction, Unknown, ) 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 Past Medical History CKD stage 4 HTN Proteinuria Anemia SHPT Vit D deficiency Recent PNA Chronic back pain CAD COPD BPH Past Surgical History Kidney biopsy Bone Marrow biopsy Colonoscopy Reported Medications Flomax (Tamsulosin HCl) 0.4 Mg Cap 0.4 Mg PO HS 30 Days Furosemide 40 Mg PO BID Ergocalciferol 50,000 Unit Cap 50,000 Units PO Q7D 30 Days Coreg (Carvedilol) 12.5 Mg Tab 25 Mg PO BID 30 Days Clopidogrel (Clopidogrel Bisulfate) 75 Mg Tab 75 Mg PO DAILY Amlodipine (Amlodipine Besylate) 10 Mg Tab 10 Mg PO DAILY Hydralazine (Hydralazine HCl) 100 Mg Tab 100 Mg PO TID Vitamin D3 (Cholecalciferol) 1,000 Unit Tab 2,000 Units PO DAILY Aspirin EC (Aspirin) 81 Mg Tabdr 81 Mg PO DAILY Lipitor (Atorvastatin Calcium) 80 Mg Tab 80 Mg PO HS Protonix (Pantoprazole Sodium) 40 Mg Tab 40 Mg PO DAILY Flexeril (Cyclobenzaprine HCl) 10 Mg Tab 10 Mg PO TID Gabapentin 600 Mg Tab 600 Mg PO TID Calcium + D3 (Calcium Carbonate-Cholecalciferol) 600-200 Mg-Unit Tab 1 Tab PO BID Mirtazapine 15 Mg Tab 15 Mg PO HS Active Ordered Medications Current Medications Medications (Trade) Dose Ordered Sig/Ramakrishna Route Start Time Stop Time Status Last Admin (NS Flush) 2 ml UNSCH PRN IV FLUSH 10/21/16 21:45 (NS Flush) 2 ml BID IV FLUSH 10/22/16 09:00 10/22/16 09:40 (Narcan Inj) 0.4 mg UNSCH PRN IV 10/21/16 21:45 (Norvasc) 10 mg DAILY PO 10/22/16 09:00 10/22/16 09:39 (Ecotrin Ec) 81 mg DAILY PO 10/22/16 09:00 10/22/16 09:40 (Lipitor) 80 mg HS PO 10/22/16 21:00 (Coreg) 25 mg BID PO 10/22/16 09:00 10/22/16 09:39 (Plavix) 75 mg DAILY PO 10/22/16 09:00 10/22/16 09:40 (Flexeril) 10 mg TID PO 10/22/16 09:00 10/22/16 09:38 (Apresoline) 100 mg TID PO 10/22/16 09:00 10/22/16 09:39 (Remeron) 15 mg HS PO 10/22/16 21:00 (Protonix) 40 mg DAILY PO 10/22/16 09:00 10/22/16 09:38 (Flomax) 0.4 mg HS PO 10/22/16 21:00 (Neurontin) 300 mg Q12HR PO 10/22/16 09:00 10/22/16 09:39 (Morphine Inj) 2 mg Q3H PRN IV PUSH 10/22/16 03:00 10/22/16 09:47 (Heparin Inj) 5,000 units Q8HR SQ 10/22/16 14:00 Family History Father--prostate issues Mother--DM Social History Currently homeless living in with a friend on [facility] Previous smoker that quit earlier in the year Occasional EtOH use No recent illicit drug use, but says he used to socially use cocaine when he was younger. (Kelley Lora) Physical Exam Vital Signs Vital Signs Date Time Temp Pulse Resp B/P (MAP) Pulse Ox O2 Delivery O2 Flow Rate FiO2 10/22/16 09:28 98.3 69 16 174/96 (122) 97 10/22/16 07:39 73 10/22/16 03:50 22 10/22/16 03:15 72 10/22/16 03:08 98.4 74 18 165/90 (115) 98 10/21/16 23:56 98.2 72 18 174/91 (118) 96 10/21/16 23:20 77 10/21/16 23:00 80 16 165/80 (108) 98 Room Air 10/21/16 22:55 84 19 170/82 (111) 98 10/21/16 22:00 84 17 170/85 (113) 98 Room Air 10/21/16 21:00 86 19 170/87 (114) 97 Room Air 10/21/16 20:00 88 17 172/90 (117) 98 Room Air 10/21/16 19:20 Room Air 10/21/16 19:20 90 20 160/78 (105) 98 Room Air 10/21/16 19:20 Room Air 10/21/16 19:00 92 20 146/80 (102) 99 Room Air 10/21/16 18:46 98.4 98 15 142/87 (105) 99 Physical Exam GENERAL: Laying in bed. NAD. SKIN: Warm and dry. HEAD: Atraumatic. Normocephalic. EYES: Pupils equal and round. No scleral icterus. No injection or drainage. ENT: No nasal bleeding or discharge. Mucous membranes pink and moist. NECK: Trachea midline. No JVD. CARDIOVASCULAR: Regular rate and rhythm. 3/6 systolic murmur RESPIRATORY: No accessory muscle use. Clear to auscultation. Breath sounds equal bilaterally. GASTROINTESTINAL: Abdomen soft, non-tender, nondistended. Hepatic and splenic margins not palpable. MUSCULOSKELETAL: Extremities without clubbing, cyanosis, or edema. No obvious deformities. Trace edema L ankle. None elsewhere NEUROLOGICAL: Awake and alert. No obvious cranial nerve deficits. Normal speech. PSYCHIATRIC: Appropriate mood and affect; insight and judgment normal. Laboratory Laboratory Tests Test 10/21/16 19:35 10/22/16 05:18 10/22/16 10:10 White Blood Count 5.9 15.7 Red Blood Count 2.91 2.79 Hemoglobin 9.5 9.1 Hematocrit 28.8 27.8 Mean Corpuscular Volume 98.9 99.4 Mean Corpuscular Hemoglobin 32.6 32.5 Mean Corpuscular Hemoglobin Concent 33.0 32.7 Red Cell Distribution Width 15.3 14.8 Platelet Count 273 230 Mean Platelet Volume 8.6 8.9 Neutrophils (%) (Auto) 86.8 85.0 Lymphocytes (%) (Auto) 12.4 9.9 Monocytes (%) (Auto) 0.6 5.0 Eosinophils (%) (Auto) 0.0 0.0 Basophils (%) (Auto) 0.2 0.1 Neutrophils # (Auto) 5.1 13.4 Lymphocytes # (Auto) 0.7 1.6 Monocytes # (Auto) 0.0 0.8 Eosinophils # (Auto) 0.0 0.0 Basophils # (Auto) 0.0 0.0 CBC Comment DIFF FINAL DIFF FINAL Differential Comment Prothrombin Time 10.0 Prothromb Time International Ratio 0.9 Activated Partial Thromboplast Time 29.5 Blood Urea Nitrogen 38 43 Creatinine 5.99 5.81 Random Glucose 280 99 Total Protein 5.7 5.5 Albumin 1.8 Calcium Level 7.2 7.4 Magnesium Level 2.1 Alkaline Phosphatase 86 Aspartate Amino Transf (AST/SGOT) 18 Alanine Aminotransferase (ALT/SGPT) 16 Total Bilirubin 0.1 Sodium Level 136 143 Potassium Level 4.9 6.5 5.1 Chloride Level 110 116 Carbon Dioxide Level 17.1 19.1 Anion Gap 9 8 Estimat Glomerular Filtration Rate 12 12 Protein Corrected Calcium 7.9 8.3 Total Creatine Kinase 183 Creatine Kinase MB 1.0 Troponin I 0.02 (Kelley Lora) Result Diagram: 10/22/16 0518 10/22/16 1010 Imaging Last Impressions Chest X-Ray 10/21/16 1914 Signed Impressions: Service Date/Time: September 19:28 - CONCLUSION: Underinflation with mild atelectasis at the lung bases. Otherwise, no acute finding is identified. 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 He has unfortunately had progressive renal decline over the past 8 months and appears that he has reached end-stage renal disease at this point. He has been on high doses of diuretics since his August admission and potentially may be volume depleted. SCr improved slightly overnight with hold on Lasix His K+ was elevated this AM and is likely related to CKD as no medications administered that could have caused hyperkalemia. He is slightly acidotic. He does not appear to be fluid overloaded and CXR confirms the same. To continue to hold diuretics for the present. Encouraged po intake. Would advise against IV fluids. Avoid ACEi and ARBs at this time as he was hyperkalemic this AM. Low-K+ diet ordered Will start on po bicarbonate to help correct acidosis. Check UA with C&S as he has some urinary hesitancy and an elevated WBC as well as check renal/bladder US to ensure no obstructive process. As discussed with the patient, this decline in his renal functions may be intrinsic and he may require dialytic intervention this admission. No urgency at today, but will follow with labs and clinical status in the AM. Gabapentin dose is max 300mg QD with eGFR <15. Adjusted in orders. I have placed consult to case management regarding outpayer source for dialysis as it does appear imminent at this point. Medications should be adjusted for the patient's renal decline. Avoid nephrotoxic medications such as NSAIDs and iodinated contrast dyes. Avoid gadolinium. (2) Hyperkalemia ICD Codes: E87.5 - Hyperkalemia Status: Acute Plan: Resolved with Kionex. Low-K+ diet Hold ACEi and ARBs Monitor. (3) Metabolic acidosis ICD Codes: E87.2 - Acidosis Status: Acute Plan: Likely related to CKD. Start po bicarb (4) Hypertension ICD Codes: I10 - Essential (primary) hypertension Status: Chronic Plan: Continue on current regimen. Coreg was increased to 25mg BID. If BP remains elevated, consider switching Tamsulosin to Doxazosin (5) Prostate enlargement ICD Codes: N40.0 - Benign prostatic hyperplasia without lower urinary tract symptoms Status: Acute (6) CAD (coronary artery disease) ICD Codes: I25.10 - Atherosclerotic heart disease of [place] coronary artery without angina pectoris Status: Acute (7) Vitamin D deficiency ICD Codes: E55.9 - Vitamin D deficiency, unspecified Status: Acute (8) Anemia ICD Codes: D64.9 - Anemia, unspecified Status: Acute Plan: Likely of renal disease Check Fe stores (Kelley Lora) Assessment and Plan The exam, history, and the medical decision-making described in the above note were completed with the assistance of the PA-C. I reviewed and agree with the findings presented. I attest that I had a [id number] encounter with the patient on the same day, and personally performed and documented my assessment and findings in the medical record. (Radha Marie MD) Kelley Lora Oct 22, 2016 13:02 Radha Marie MD Nov 01, 2016 13:32
--- NOTE | 2016-10-22 14:44 | RADRPT ---
EXAM DATE/TIME: 10/22/2016 13:15 [facility] COMPARISON: US KIDNEY/RENAL/BLADDER, September 15, 2016, 21:12. INDICATIONS : Increased Bun and Creatinine. MEDICAL HISTORY : Congestive heart failure. Hypercholesterolemia. Gastroesophageal reflux disease. Hyperlipidemia. Hyp ertension. CAD. SURGICAL HISTORY : Cardiac cath. ENCOUNTER: Subsequent ACUITY: 4-6 days PAIN SCORE: 6/10 LOCATION: Bilateral flank MEASUREMENTS: RIGHT KIDNEY: 14.2 x 7.6 x 8.5 cm LEFT KIDNEY: 12.1 x 6.2 x 7.5 cm FINDINGS: RIGHT KIDNEY: Renal cortex is normal in thickness with increased echotexture. No hydronephrosis, stone, or mass. LEFT KIDNEY: Renal cortex is normal in thickness with increased echotexture. No hydronephrosis, stone, or mass. BLADDER: Within normal limits given the degree of distension. CONCLUSION: 1. No evidence for obstructive uropathy. 2. Redemonstration of increased renal cortical echogenicity consistent with medical renal disease. Elan Mcclendon MD on October 22, 2016 at 14:42 Board Certified Radiologist. This report was verified electronically.
--- NOTE | 2016-10-22 14:55 | HHI.PR ---
Subjective Remarks Follow-up for CKD stage V. The patient states that he's been having worsening nausea and dizziness. He's been tolerating diet with no vomiting. He states he has chronic right upper quadrant abdominal pain for the last year. He states he was told he has gallbladder sludge. He states he was on antibiotics for pneumonia about a month ago and has been having soft stools on and off since then, but denies any diarrhea. He states he is given Protonix and a muscle relaxer for the pain in the past. Understands that he may need to go on dialysis, all questions answered. Objective Vitals Vital Signs Date Time Temp Pulse Resp B/P (MAP) Pulse Ox O2 Delivery O2 Flow Rate FiO2 10/22/16 13:43 98.1 68 18 169/92 (117) 98 10/22/16 13:41 67 10/22/16 09:28 98.3 69 16 174/96 (122) 97 10/22/16 07:39 73 10/22/16 03:50 22 10/22/16 03:15 72 10/22/16 03:08 98.4 74 18 165/90 (115) 98 10/21/16 23:56 98.2 72 18 174/91 (118) 96 10/21/16 23:20 77 10/21/16 23:00 80 16 165/80 (108) 98 Room Air 10/21/16 22:55 84 19 170/82 (111) 98 10/21/16 22:00 84 17 170/85 (113) 98 Room Air 10/21/16 21:00 86 19 170/87 (114) 97 Room Air 10/21/16 20:00 88 17 172/90 (117) 98 Room Air 10/21/16 19:20 Room Air 10/21/16 19:20 90 20 160/78 (105) 98 Room Air 10/21/16 19:20 Room Air 10/21/16 19:00 92 20 146/80 (102) 99 Room Air 10/21/16 18:46 98.4 98 15 142/87 (105) 99 I/O 10/21/16 10/21/16 10/21/16 10/22/16 10/22/16 10/22/16 07:00 15:00 23:00 07:00 15:00 23:00 Intake Total 480 ml Output Total 175 ml 900 ml Balance 305 ml -900 ml Intake Oral 480 ml Output Urine Total 175 ml 900 ml # Voids 1 Result Diagram: 10/22/16 0518 10/22/16 1010 Imaging Last Impressions Renal Ultrasound 10/22/16 0000 Signed Impressions: Service Date/Time: Saturday, October 22, 2016 13:15 - CONCLUSION: 1. No evidence for obstructive uropathy. 2. Redemonstration of increased renal cortical echogenicity consistent with medical renal disease. Elan Mcclendon MD Chest X-Ray 10/21/16 1914 Signed Impressions: Service Date/Time: September 19:28 - CONCLUSION: Underinflation with mild atelectasis at the lung bases. Otherwise, no acute finding is identified. Troy Cruz MD Objective Remarks GENERAL: Well-developed well-nourished. In no acute distress. SKIN: Warm and dry. No lesions noted. HEENT: Normocephalic. Pupils equal and round. Mucous membranes pink and moist. CARDIOVASCULAR: Regular rate and rhythm. No murmur appreciated. RESPIRATORY: No accessory muscle use. Clear to auscultation. Breath sounds equal bilaterally. GASTROINTESTINAL: Abdomen soft, generalized TTP, nondistended. Bowel sounds x4. MUSCULOSKELETAL: No obvious deformities. No clubbing or cyanosis. No edema. NEUROLOGICAL: Awake and alert. No focal neurological deficits. Moves upper and lower extremities spontaneously. Normal speech. PSYCHIATRIC: Appropriate mood and affect; insight and judgment normal. A/P Assessment and Plan 56-year-old male with a past medical history of HTN, CAD, COPD, CKD who presented with weakness, dizziness, nausea likely secondary to uremia CKD stage V: Creatinine 5.69, previously 4.3 on 09/19/16. Creatinine has been steadily trending up for the past year. Nephrology consulted, impending dialysis, appreciate input. Renal ultrasound shows medical renal disease. Bicarbonate added. Avoid nephrotoxins. Hyperkalemia: Potassium increased to 6.5, likely from renal failure. EKG showed mild peaking of T waves. Given Kayexalate and potassium improved to 5.1. Avoid medication that can increase potassium like patient's losartan. Follow-up BMP. Abdominal pain: Chronic. Patient definitely has abdominal tenderness on exam. Multiple essentially negative workups in the past upon review of previous records. The patient has had intermittent softer stools since being on antibiotics one month ago. Check lipase. Check CT abdomen without contrast. Check C. difficile. Continue PPI. Other chronic medical conditions include HTN, depression, neuropathy, HLD, CAD: Stable at this time and will continue home medications as indicated. DVT prophylaxis: Heparin Discharge Planning Admitted to inpatient with renal failure and hyperkalemia. Follow-up nephrology recommendations regarding impending dialysis. Case management consulted for assistance with discharge planning. Edis Ohara Oct 22, 2016 14:55
[2016-10-22] MEDS ORDERED: DIATRIZOATE MEGLUM/DIATRIZOATE SOD 9 ML CUP PO ONE (15:45)
[2016-10-22 16:42] LABS: TRANSFERRIN IRON PROFILE 141 MG/DL (200-360)
[2016-10-22 16:44] LABS: FERRITIN 107 NG/ML (26-388)
[2016-10-22] MEDS: SODIUM BICARBONATE 650 MG TAB PO SCH ×2 (16:59→22:55)
--- NOTE | 2016-10-22 20:15 | RADRPT ---
EXAM DATE/TIME: 10/22/2016 19:55 [facility] COMPARISON: CT ABDOMEN & PELVIS W/O CONTRAST, October 09, 2015, 11:05. INDICATIONS : Right flank pain. ORAL CONTRAST: Prescribed oral contrast ingested. RADIATION DOSE: 15.31 CTDIvol (mGy) MEDICAL HISTORY : Cardiovascular disease. Congestive heart failure. Hypertension.Renal failure.Diabetes. SURGICAL HISTORY : None. ENCOUNTER: Initial ACUITY: 2 days PAIN SCALE: 8/10 LOCATION: Right flank TECHNIQUE: Volumetric scanning of the abdomen and pelvis was performed. Using automated exposure control and ad justment of the mA and/or kV according to patient size, radiation dose was kept as low as reasonably achievable to obtain optimal diagnostic quality images. DICOM format image data is available electro nically for review and comparison. FINDINGS: LOWER LUNGS: Trace bilateral pleural effusions, new. LIVER: Homogeneous density without lesion. There is no dilation of the biliary tree. No calcified gallston es. SPLEEN: Normal size without lesion. PANCREAS: Within normal limits. KIDNEYS: Normal in size and shape. There is no mass, stone, or hydronephrosis. ADRENAL GLANDS: Within normal limits. VASCULAR: There is no aortic aneurysm. BOWEL/MESENTERY: The stomach, small bowel, and colon demonstrate no acute abnormality. No free air. Small fluid seen i n the pelvic cavity. Also trace free fluid in Morison's pouch The appendix is well-visualized, normal .. ABDOMINAL WALL: Within normal limits. RETROPERITONEUM: There is no lymphadenopathy. BLADDER: No wall thickening or mass. REPRODUCTIVE: Within normal limits. INGUINAL: There is no lymphadenopathy or hernia. MUSCULOSKELETAL: No acute bony abnormality demonstrated. CONCLUSION: 1. Small free fluid in Morison's pouch and in the pelvic cavity of unclear etiology. Nothing organize d or drainable. 2. No renal stones or evidence of obstructive uropathy. 3. Trace pleural fluid of each visualized lung base. Troy Dean MD on October 22, 2016 at 20:10 Board Certified Radiologist. This report was verified electronically.
[2016-10-22] MEDS: ATORVASTATIN 80 MG TAB PO SCH (20:47)
[2016-10-22] MEDS: TAMSULOSIN HCL 0.4 MG CAP PO SCH (20:47)
[2016-10-22] MEDS: MIRTAZAPINE 15 MG TAB PO SCH (20:47)
[2016-10-23] VITALS: BP 147/92; PULSE 69; RESP 18; TEMP 97.2; O2SAT 98
[2016-10-23 04:00] VITALS: BP 147/85; PULSE 67; RESP 18; TEMP 95.6; O2SAT 100
[2016-10-23 04:13] LABS: APTT (PATIENT) 28.3 SEC (24.3-30.1); INTERNATIONAL NORMALIZED RATIO 0.9 RATIO; PROTHROMBIN TIME - PATIENT 9.6 SEC (9.8-11.6)
[2016-10-23] MEDS: MORPHINE SULFATE 4 MG/ML INJ IV PUSH PRN ×5 (04:16→20:45)
[2016-10-23] MEDS: HEPARIN SODIUM - SQ 10,000 UNITS/ML VIAL SQ SCH ×3 (04:19→20:43)
[2016-10-23 04:23] LABS: BICARBONATE 20.5 MEQ/L (21.0-32.0); POTASSIUM 5.2 MEQ/L (3.5-5.1)
[2016-10-23 04:31] LABS: HEMATOCRIT 27.7 % (39.0-51.0); MEAN CELL VOLUME 99.4 FL (80.0-100.0); MEAN CORPUSCULAR HEMOGLOBIN 32.6 PG (27.0-34.0); MEAN CORPUSCULAR HGB CONC 32.8 % (32.0-36.0); PLATELET COUNT 225 TH/MM3 (150-450); RED BLOOD COUNT 2.78 MIL/MM3 (4.50-5.90); REVIEW FLAG FINAL; WHITE BLOOD COUNT 14.6 TH/MM3 (4.0-11.0)
[2016-10-23] MEDS: SODIUM BICARBONATE 650 MG TAB PO SCH ×3 (06:19→20:43)
[2016-10-23 08:00] VITALS: BP 176/98; PULSE 62; RESP 19; TEMP 96.9; O2SAT 97
[2016-10-23] MEDS: SODIUM CHLORIDE 0.9% FLUSH 10 ML FLUSH IV FLUSH SCH ×2 (09:00→20:42)
[2016-10-23] MEDS: ASPIRIN EC 81 MG TABEC PO SCH (09:09)
[2016-10-23] MEDS: CARVEDILOL 12.5 MG TAB PO SCH ×2 (09:10→20:42)
[2016-10-23] MEDS: CYCLOBENZAPRINE HCL 10 MG TAB PO SCH ×3 (09:10→17:09)
[2016-10-23] MEDS: PANTOPRAZOLE SOD 40 MG DELAYED RELEASE TAB PO SCH (09:10)
[2016-10-23] MEDS: hydrALAZINE HCL 100 MG TAB PO SCH ×3 (09:10→17:09)
[2016-10-23] MEDS: CLOPIDOGREL 75 MG TAB PO SCH (09:10)
[2016-10-23] MEDS: GABAPENTIN 300 MG CAP PO SCH (09:10)
--- NOTE | 2016-10-23 11:40 | HHI.PR ---
Subjective Remarks Patient reports he is feeling okay. No chest pain or shortness of breath. States he is not urinating much. Objective Vitals Vital Signs Date Time Temp Pulse Resp B/P (MAP) Pulse Ox O2 Delivery O2 Flow Rate FiO2 10/23/16 08:00 96.9 62 19 176/98 (124) 97 10/23/16 04:00 95.6 67 18 147/85 (105) 100 10/23/16 00:00 97.2 69 18 147/92 (110) 98 10/22/16 16:00 97.7 72 17 162/85 (110) 98 10/22/16 13:43 98.1 68 18 169/92 (117) 98 10/22/16 13:41 67 I/O 10/22/16 10/22/16 10/22/16 10/23/16 10/23/16 10/23/16 06:59 14:59 22:59 06:59 14:59 22:59 Intake Total 480 ml 120 ml Output Total 175 ml 900 ml Balance 305 ml -900 ml 120 ml Intake Oral 480 ml 120 ml Output Urine Total 175 ml 900 ml # Voids 1 Result Diagram: 10/23/16 0341 10/23/16 0341 Imaging Last Impressions Renal Ultrasound 10/22/16 0000 Signed Impressions: Service Date/Time: Saturday, October 22, 2016 13:15 - CONCLUSION: 1. No evidence for obstructive uropathy. 2. Redemonstration of increased renal cortical echogenicity consistent with medical renal disease. Elan Mcclendon MD Abdomen/Pelvis CT 10/22/16 0000 Signed Impressions: Service Date/Time: Saturday, October 22, 2016 19:55 - CONCLUSION: 1. Small free fluid in Morison's pouch and in the pelvic cavity of unclear etiology. Nothing organized or drainable. 2. No renal stones or evidence of obstructive uropathy. 3. Trace pleural fluid of each visualized lung base. Troy Dean MD Chest X-Ray 10/21/16 191 Signed Impressions: Service Date/Time: September 19:28 - CONCLUSION: Underinflation with mild atelectasis at the lung bases. Otherwise, no acute finding is identified. Troy Cruz MD Objective Remarks GENERAL: This is a well-nourished, well-developed patient, in no apparent distress. CARDIOVASCULAR: Normal rate and regular rhythm. 2/6 TAMARA murmur RESPIRATORY: Good respiratory efforts. Breath sounds equal and clear to auscultation bilaterally. GASTROINTESTINAL: Abdomen soft, non-tender, non-distended. Normal active bowel sounds MUSCULOSKELETAL: Extremities without cyanosis, or edema. NEURO: Alert & Oriented x4 to person, place, time, situation. Moves all ext x4 PSYCH: Appropriate mood and affect. A/P Assessment and Plan 56-year-old male with a past medical history of HTN, CAD, COPD, CKD who presented with weakness, dizziness, nausea, likely secondary to uremia from worsening renal failure CKD stage V, probably progressing to end-stage: Creatinine has been steadily trending up for the past year, currently hypokalemic and mildly acidotic. Serum creatinine slightly M proving since Lasix has been on hold. Creatinine today 5.71 - Nephrology following. Continue to hold diuretics for now. Encourage by mouth intake. Avoid nephrotoxins. On by mouth bicarbonate. - Monitor renal function closely Hyperkalemia from renal failure: See above. Given Kayexalate and potassium improved. Currently 5.2. Avoid medication that can increase potassium like patient's losartan. Follow-up BMP. - Low potassium diet. Follow-up BMP in a.m. Abdominal pain: Chronic. Multiple essentially negative workups in the past upon review of previous records. Repeat abdominal CT with no acute process. Continue PPI. Other chronic medical conditions include HTN, depression, neuropathy, HLD, CAD: Stable at this time and will continue home medications as indicated. DVT prophylaxis: Heparin Santo Hartmann MD Oct 23, 2016 11:40
[2016-10-23 12:00] VITALS: BP 140/84; PULSE 62; RESP 20; TEMP 97.1; O2SAT 96
[2016-10-23 16:00] VITALS: BP 154/86; PULSE 63; RESP 19; TEMP 97; O2SAT 99
--- NOTE | 2016-10-23 17:06 | HHI.NPPN ---
Subjective History of Present Illness The patient is a 56 yo AA male who is known to our services for CKD, HTN, proteinuria, and anemia. He has unfortunately had progressive renal decline over the past several months and presented to the ED on 10/21 by the urge of his PCP, Dr. Quintero, as it was noted on outpatient labs that he was in renal failure. Reports feeling fatigued, worsening swelling, and increased SOB since his discharge from here in August for PNA. At that admission, his Lasix was increased from 20mg MWF to 40mg BID (however states he is not always compliant with taking BID). He has not been on Losartan nor KCl since August admission. BP medications include Coreg 12.5mg BID, Hydralazine 100mg q8h, and Amlodipine 10mg QD. Says AM pressure are typically very high in the 190-200mmHg range, but improve to 140mmHg systolically in the afternoons. Denies any recent illness, no abx since August, no contrast exposure. Some nausea and decrease in appetite. Loose stools after abx in August, but no diarrhea nor vomiting. 10/21 SCr outpatient 5.69 eGFR 13 Admitting SCr 5.99 with eGFR 12 SCr at consult 5.81 eGFR 12 Interval History Indicating that he feels generally fatigued. Review of Systems General Constitutional: Fatigue Objective Data Data 10/23/16 10/24/16 19:00 07:00 Intake Total 240 ml Balance 240 ml Intake Oral 240 ml Vital Signs Date Time Temp Pulse Resp B/P (MAP) Pulse Ox O2 Delivery O2 Flow Rate FiO2 10/23/16 12:00 97.1 62 20 140/84 (102) 96 10/23/16 08:00 96.9 62 19 176/98 (124) 97 10/23/16 04:00 95.6 67 18 147/85 (105) 100 10/23/16 00:00 97.2 69 18 147/92 (110) 98 -: 10/23/16 0341 10/23/16 0341 Physical Exam General Appearance: Well Developed, Well Nourished, No Acute Distress, Comfortable Pulmonary Resp Exam: Clear Bilaterally, Breath Sounds Equal, No Distress Cardiology CV Exam: Regular, Normal Sinus Rhythm, Good Perfusion Gastrointestinal/Abdomen GI Exam: Soft, Non-Tender Integumentary Skin Exam: Clear, Warm, Normal Turgor Extremeties Extremities Exam: No Edema Neurologic Neuro Exam: Alert, Awake, Oriented, Speech Clear, Moving All Extremities Psychiatric Psych Exam: Appropriate Responses Assessment/Plan Problem List: (1) CKD (chronic kidney disease) stage 5, GFR less than 15 ml/min ICD Codes: N18.5 - Chronic kidney disease, stage 5 Plan: Patient's creatinine level has improved however GFR is still below 15. Patient's symptomatology may well be related to uremia. I discussed with him the severity of his renal insufficiency. The plan will be to monitor his renal indices over the weekend and if his renal dysfunction is still indicative of CKD stage V with associated symptomatology would recommend proceeding with dialytic support. I discussed with the patient the process of dialysis as well as technical aspects including placement of a hemodialysis PermCath with subsequent initiation of dialysis. He was advised that his chronic kidney disease is permanent and dialysis would be indicated and definitely unless he would be able to qualify for a kidney transplant. He was also advised that a donor kidney transplant may not take place for several years even if he qualifies because of the waiting list. The importance of compliance with dialysis was emphasized the patient also as well as risks associated with dialysis and alternatives. Educational material from the "[employer]" was provided to him. Patient also has computer access to the website and he was advised to go to that website for additional information. Patient's lack of insurance was discussed with him also. Freestanding dialysis facility most likely will not accept the patient unless he has a payor source such as Medicare and or Medicaid. He may have to remain in the hospital until a payor source is found or if the hospital will provide outpatient dialysis service to him may be able to be discharged post-initiation of dialysis but this remains to be determined as discussed with him. 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 Last Edited By: Nita Marie on Oct 23, 2016 17:07 (2) Hyperkalemia ICD Codes: E87.5 - Hyperkalemia Status: Acute Plan: Resolved with Kionex. Low-K+ diet Hold ACEi and ARBs Monitor. (3) Metabolic acidosis ICD Codes: E87.2 - Acidosis Status: Acute Plan: Likely related to CKD. Continue oral sodium bicarbonate. (4) Hypertension ICD Codes: I10 - Essential (primary) hypertension Status: Chronic Plan: Continue on current regimen. Coreg was increased to 25mg BID. If BP remains elevated, consider switching Tamsulosin to Doxazosin (5) Prostate enlargement ICD Codes: N40.0 - Benign prostatic hyperplasia without lower urinary tract symptoms Status: Acute (6) CAD (coronary artery disease) ICD Codes: I25.10 - Atherosclerotic heart disease of [place] coronary artery without angina pectoris Status: Acute (7) Vitamin D deficiency ICD Codes: E55.9 - Vitamin D deficiency, unspecified Status: Acute (8) Anemia ICD Codes: D64.9 - Anemia, unspecified Status: Acute Plan: Likely of renal disease Check Fe stores Radha Marie MD Oct 23, 2016 17:06
--- NOTE | 2016-10-23 18:52 | EKG ---
Date Performed: 10/22/2016 Time Performed: 09:25:10 PTAGE: 56 years EKG: Sinus rhythm WITH MARKED SINUS ARRHYTHMIA BORDERLINE ECG PREVIOUS TRACING : 10/21/2016 19.21 Compared to prior tracing no significant change DOCTOR: Pro Joyce Interpretating Date/Time 10/23/2016 18:51:12
[2016-10-23 20:00] VITALS: BP 175/93; PULSE 65; RESP 17; TEMP 95.8; O2SAT 97
[2016-10-23] MEDS: TAMSULOSIN HCL 0.4 MG CAP PO SCH (20:42)
[2016-10-23] MEDS: ATORVASTATIN 80 MG TAB PO SCH (20:43)
[2016-10-23] MEDS: MIRTAZAPINE 15 MG TAB PO SCH (20:43)
[2016-10-24] VITALS (7 sets, daily range): BP systolic 133–156; BP diastolic 75–88; PULSE 62–77; RESP 17–20; TEMP 96.3–97.7; O2SAT 96–98
[2016-10-24] MEDS: MORPHINE SULFATE 4 MG/ML INJ IV PUSH PRN ×7 (03:37→23:21)
[2016-10-24] MEDS: SODIUM BICARBONATE 650 MG TAB PO SCH ×3 (04:46→20:15)
[2016-10-24] MEDS: HEPARIN SODIUM - SQ 10,000 UNITS/ML VIAL SQ SCH ×3 (04:47→20:14)
[2016-10-24 05:47] LABS: BICARBONATE 19.3 MEQ/L (21.0-32.0)
[2016-10-24 06:41] LABS: CALCIUM-PROTEIN CORRECTED 7.9 MG/DL (8.5-10.1)
[2016-10-24] MEDS: SODIUM CHLORIDE 0.9% FLUSH 10 ML FLUSH IV FLUSH SCH ×2 (09:00→20:15)
[2016-10-24] MEDS: GABAPENTIN 300 MG CAP PO SCH (09:02)
[2016-10-24] MEDS: CLOPIDOGREL 75 MG TAB PO SCH (09:03)
[2016-10-24] MEDS: CARVEDILOL 12.5 MG TAB PO SCH ×2 (09:03→20:15)
[2016-10-24] MEDS: ASPIRIN EC 81 MG TABEC PO SCH (09:03)
[2016-10-24] MEDS: CYCLOBENZAPRINE HCL 10 MG TAB PO SCH ×3 (09:03→16:48)
[2016-10-24] MEDS: hydrALAZINE HCL 100 MG TAB PO SCH ×3 (09:03→16:48)
[2016-10-24] MEDS: PANTOPRAZOLE SOD 40 MG DELAYED RELEASE TAB PO SCH (09:03)
--- NOTE | 2016-10-24 10:04 | HHI.PR ---
Subjective Remarks Patient complains of pain all over. Reports he feels weak. No chest pain or shortness of breath. Objective Vitals Vital Signs Date Time Temp Pulse Resp B/P (MAP) Pulse Ox O2 Delivery O2 Flow Rate FiO2 10/24/16 04:00 96.3 68 17 144/83 (103) 96 10/24/16 00:00 96.6 71 17 155/85 (108) 97 10/23/16 20:00 95.8 65 17 175/93 (120) 97 10/23/16 16:00 97.0 63 19 154/86 (108) 99 10/23/16 12:00 97.1 62 20 140/84 (102) 96 I/O 10/23/16 10/23/16 10/23/16 10/24/16 10/24/16 10/24/16 07:00 15:00 23:00 07:00 15:00 23:00 Intake Total 240 ml 1442 ml 240 ml Output Total 1000 ml 250 ml Balance 240 ml 442 ml -10 ml Intake Oral 240 ml 1440 ml 240 ml IV Total 2 ml 0 ml Output Urine Total 1000 ml 250 ml # Voids 1 # Bowel Movements 0 Result Diagram: 10/23/16 0341 10/24/16 0440 Objective Remarks GENERAL: This is a well-nourished, well-developed patient, in no apparent distress. CARDIOVASCULAR: Normal rate and regular rhythm. 2/6 TAMARA murmur RESPIRATORY: Good respiratory efforts. Breath sounds equal and clear to auscultation bilaterally. GASTROINTESTINAL: Abdomen soft, non-tender, non-distended. Normal active bowel sounds MUSCULOSKELETAL: Extremities without cyanosis, or edema. NEURO: Alert & Oriented x4 to person, place, time, situation. Moves all ext x4 PSYCH: Appropriate mood and affect. A/P Assessment and Plan 56-year-old male with a past medical history of HTN, CAD, COPD, CKD who presented with weakness, dizziness, nausea, likely secondary to uremia from worsening renal failure CKD stage V, probably progressing to end-stage: Creatinine has been steadily trending up for the past year, currently hyperkalemic and mildly acidotic. Serum creatinine stable. GFR unchanged. Lasix has been on hold. Creatinine today 5.71>>5.4 - Nephrology following. Continue to hold diuretics for now. Encourage by mouth intake. Avoid nephrotoxins. On by mouth bicarbonate. - Monitor renal function closely over the weekend. Likely will need dialysis. Once dialysis is started, He will need outpatient dialysis set up and a source of funding as he has no insurance. Hyperkalemia from renal failure: See above. Given Kayexalate and potassium improved. 5.2>>5.0. Avoid medication that can increase potassium like patient' s losartan. Follow-up BMP. - Low potassium diet. Follow-up BMP in a.m. Abdominal pain: Chronic. Multiple essentially negative workups in the past upon review of previous records. Repeat abdominal CT with no acute process. Continue PPI. Other chronic medical conditions include HTN, depression, neuropathy, HLD, CAD: Stable at this time and will continue home medications as indicated. DVT prophylaxis: Heparin Consult PT. Santo Hartmann MD Oct 24, 2016 10:04
[2016-10-24] MEDS: ATORVASTATIN 80 MG TAB PO SCH (20:14)
[2016-10-24] MEDS: TAMSULOSIN HCL 0.4 MG CAP PO SCH (20:14)
[2016-10-24] MEDS: MIRTAZAPINE 15 MG TAB PO SCH (20:15)
[2016-10-25] VITALS (7 sets, daily range): BP systolic 126–158; BP diastolic 60–90; PULSE 70–94; RESP 16–20; TEMP 95.8–99.5; O2SAT 95–100
[2016-10-25] MEDS: MORPHINE SULFATE 4 MG/ML INJ IV PUSH PRN ×5 (02:40→21:47)
[2016-10-25 04:00] LABS: BLOOD, URINE MOD (NEG); COMMENT (UR) CULTURE INDICATED; CULTURE IF INDICATED CULTURE INDICATED; GLUCOSE,URINE NEG (NEG); KETONE, URINE NEG (NEG); MUCUS URINE FEW /lpf (OCC); NITRITE,URINE NEG (NEG); SQUAMOUS EPITHELIAL CELL URINE <1 /hpf (0-5); URINE COLOR YELLOW (YELLW/STRAW)
[2016-10-25 05:10] LABS: HEMATOCRIT 29.2 % (39.0-51.0); MEAN CELL VOLUME 99.7 FL (80.0-100.0); MEAN CORPUSCULAR HEMOGLOBIN 31.9 PG (27.0-34.0); PLATELET COUNT 241 TH/MM3 (150-450); RED BLOOD COUNT 2.93 MIL/MM3 (4.50-5.90); REVIEW FLAG FINAL; WHITE BLOOD COUNT 9.4 TH/MM3 (4.0-11.0)
[2016-10-25] MEDS: HEPARIN SODIUM - SQ 10,000 UNITS/ML VIAL SQ SCH ×3 (06:00→21:46)
[2016-10-25] MEDS: SODIUM BICARBONATE 650 MG TAB PO SCH ×3 (06:00→21:46)
[2016-10-25] MEDS: CLOPIDOGREL 75 MG TAB PO SCH (09:02)
[2016-10-25] MEDS: CYCLOBENZAPRINE HCL 10 MG TAB PO SCH ×3 (09:02→18:06)
[2016-10-25] MEDS: GABAPENTIN 300 MG CAP PO SCH (09:03)
[2016-10-25] MEDS: CARVEDILOL 12.5 MG TAB PO SCH ×2 (09:03→21:46)
[2016-10-25] MEDS: SODIUM CHLORIDE 0.9% FLUSH 10 ML FLUSH IV FLUSH SCH ×2 (09:03→21:46)
[2016-10-25] MEDS: ASPIRIN EC 81 MG TABEC PO SCH (09:03)
[2016-10-25] MEDS: PANTOPRAZOLE SOD 40 MG DELAYED RELEASE TAB PO SCH (09:03)
[2016-10-25] MEDS: hydrALAZINE HCL 100 MG TAB PO SCH ×3 (09:03→18:06)
--- NOTE | 2016-10-25 10:09 | HHI.PR ---
Subjective Remarks Patient complained of muscle soreness involving his shoulder and right leg today. No nausea or vomiting. States he is urinating okay. Objective Vitals Vital Signs Date Time Temp Pulse Resp B/P (MAP) Pulse Ox O2 Delivery O2 Flow Rate FiO2 10/25/16 08:00 98.8 82 18 158/60 (92) 97 10/25/16 04:00 Room Air 10/25/16 04:00 96.7 70 17 138/90 (106) 100 10/25/16 00:00 95.8 71 17 126/78 (94) 98 10/25/16 00:00 Room Air 10/24/16 20:00 Room Air 10/24/16 20:00 96.9 77 17 156/88 (110) 98 10/24/16 19:30 76 10/24/16 16:00 97.7 68 20 143/83 (103) 96 10/24/16 12:00 97.5 68 19 133/75 (94) 97 I/O 10/24/16 10/24/16 10/24/16 10/25/16 10/25/16 10/25/16 06:59 14:59 22:59 06:59 14:59 22:59 Intake Total 240 ml 240 ml 1000 ml 240 ml Output Total 250 ml 285 ml 800 ml Balance -10 ml 240 ml 715 ml -560 ml Intake Oral 240 ml 240 ml 1000 ml 240 ml IV Total 0 ml Output Urine Total 250 ml 285 ml 800 ml # Bowel Movements 1 Result Diagram: 10/25/16 0430 10/25/16 0430 Objective Remarks GENERAL: This is a well-nourished, well-developed patient, in no apparent distress. CARDIOVASCULAR: Normal rate and regular rhythm. 2/6 TAMARA murmur RESPIRATORY: Good respiratory efforts. Breath sounds equal and clear to auscultation bilaterally. GASTROINTESTINAL: Abdomen soft, non-tender, non-distended. Normal active bowel sounds MUSCULOSKELETAL: Extremities without cyanosis, or edema. NEURO: Alert & Oriented x4 to person, place, time, situation. Moves all ext x4 PSYCH: Appropriate mood and affect. A/P Assessment and Plan 56-year-old male with a past medical history of HTN, CAD, COPD, CKD who presented with weakness, dizziness, nausea, likely secondary to uremia from worsening renal failure CKD stage V, probably progressing to end-stage: Creatinine has been steadily trending up for the past year, currently hyperkalemic and mildly acidotic. Serum creatinine stable. GFR 13>>14. Lasix has been on hold. Creatinine 5.71>> 5.4>>5.37 - Acidosis improved today. K is stable - Nephrology following. Continue to hold diuretics for now. Encourage by mouth intake. Avoid nephrotoxins. On by mouth bicarbonate. - Continue to monitor renal functions. Once dialysis is started, He will need outpatient dialysis set up and a source of funding as he has no insurance. Hyperkalemia from renal failure: See above. Given Kayexalate and potassium improved. 5.2>>5.0>5.0. Avoid medication that can increase potassium like patient's losartan. Follow-up BMP. - Low potassium diet. Follow-up BMP in a.m. Abdominal pain: Chronic. Multiple essentially negative workups in the past upon review of previous records. Repeat abdominal CT with no acute process. Continue PPI. Chronic msk pain: Patient is already on Flexiril, Neurontin and Morphine for pain. PT consulted. Other chronic medical conditions include HTN, depression, neuropathy, HLD, CAD: Stable at this time and will continue home medications as indicated. DVT prophylaxis: Heparin Santo Hartmann MD Oct 25, 2016 10:09
--- NOTE | 2016-10-25 10:38 | HHI.NPPN ---
Subjective History of Present Illness The patient is a 56 yo AA male who is known to our services for CKD, HTN, proteinuria, and anemia. He has unfortunately had progressive renal decline over the past several months and presented to the ED on 10/21 by the urge of his PCP, Dr. Quintero, as it was noted on outpatient labs that he was in renal failure. Reports feeling fatigued, worsening swelling, and increased SOB since his discharge from here in August for PNA. At that admission, his Lasix was increased from 20mg MWF to 40mg BID (however states he is not always compliant with taking BID). He has not been on Losartan nor KCl since August admission. BP medications include Coreg 12.5mg BID, Hydralazine 100mg q8h, and Amlodipine 10mg QD. Says AM pressure are typically very high in the 190-200mmHg range, but improve to 140mmHg systolically in the afternoons. Denies any recent illness, no abx since August, no contrast exposure. Some nausea and decrease in appetite. Loose stools after abx in August, but no diarrhea nor vomiting. 10/21 SCr outpatient 5.69 eGFR 13 Admitting SCr 5.99 with eGFR 12 SCr at consult 5.81 eGFR 12 Interval History Patient complaining of feeling generally weak. No shortness of breath. Review of Systems General Constitutional: Fatigue Objective Data Data Vital Signs Date Time Temp Pulse Resp B/P (MAP) Pulse Ox O2 Delivery O2 Flow Rate FiO2 10/25/16 08:00 98.8 82 18 158/60 (92) 97 10/25/16 04:00 Room Air 10/25/16 04:00 96.7 70 17 138/90 (106) 100 10/25/16 00:00 95.8 71 17 126/78 (94) 98 10/25/16 00:00 Room Air 10/24/16 20:00 Room Air 10/24/16 20:00 96.9 77 17 156/88 (110) 98 10/24/16 19:30 76 10/24/16 16:00 97.7 68 20 143/83 (103) 96 10/24/16 12:00 97.5 68 19 133/75 (94) 97 -: 10/25/16 0430 10/25/16 0430 Microbiology 10/25/16 Urine Culture, Received Pending Physical Exam General Appearance: Well Developed, Well Nourished, No Acute Distress, Comfortable Pulmonary Resp Exam: Clear Bilaterally, Breath Sounds Equal, No Distress Cardiology CV Exam: Regular, Normal Sinus Rhythm, Good Perfusion Gastrointestinal/Abdomen GI Exam: Soft, Non-Tender Integumentary Skin Exam: Clear, Warm, Normal Turgor Extremeties Extremities Exam: No Edema Neurologic Neuro Exam: Alert, Awake, Oriented, Speech Clear, Moving All Extremities Psychiatric Psych Exam: Appropriate Responses Assessment/Plan Problem List: (1) CKD (chronic kidney disease) stage 5, GFR less than 15 ml/min ICD Codes: N18.5 - Chronic kidney disease, stage 5 Plan: We'll defer dialysis for the present. Patient's creatinine level is showing slow improvement and his current GFR is 14. Potassium level also within normal range and sodium bicarbonate has improved his acid base status. There is also no evidence of fluid retention. This was discussed with the patient. Recommend avoidance of LORA inhibitor or angiotensin receptor isaac as well as potassium sparing diuretics and Bactrim in view of recent hyperkalemia. Hopefully the patient's GFR will continue to improve. Patient's lack of insurance was discussed with him also. Freestanding dialysis facility most likely will not accept the patient unless he has a payor source such as Medicare and or Medicaid. He may have to remain in the hospital until a payor source is found or if the hospital will provide outpatient dialysis service to him may be able to be discharged post-initiation of dialysis but this remains to be determined as discussed with him. With improvement in renal function we may be able to void dialysis presently and it may aid the patient in acquiring insurance coverage before dialysis is required. Defer to case management in this regard. 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 Last Edited By: Nita Marie on Oct 23, 2016 17:07 (2) Hyperkalemia ICD Codes: E87.5 - Hyperkalemia Status: Acute Plan: Resolved with Kionex. Low-K+ diet Hold ACEi and ARBs Monitor. (3) Metabolic acidosis ICD Codes: E87.2 - Acidosis Status: Acute Plan: Likely related to CKD. Continue oral sodium bicarbonate. (4) Hypertension ICD Codes: I10 - Essential (primary) hypertension Status: Chronic Plan: Continue on current regimen. Coreg was increased to 25mg BID. If BP remains elevated, consider switching Tamsulosin to Doxazosin (5) Prostate enlargement ICD Codes: N40.0 - Benign prostatic hyperplasia without lower urinary tract symptoms Status: Acute (6) CAD (coronary artery disease) ICD Codes: I25.10 - Atherosclerotic heart disease of [place] coronary artery without angina pectoris Status: Acute (7) Vitamin D deficiency ICD Codes: E55.9 - Vitamin D deficiency, unspecified Status: Acute (8) Anemia ICD Codes: D64.9 - Anemia, unspecified Status: Acute Plan: Likely of renal disease Check Fe stores Radha Marie MD Oct 25, 2016 10:38
[2016-10-25 13:17] LABS: HEPATITIS B SURFACE ANTIBODY 0 mIU/mL
[2016-10-25] MEDS: MIRTAZAPINE 15 MG TAB PO SCH (21:46)
[2016-10-25] MEDS: ATORVASTATIN 80 MG TAB PO SCH (21:46)
[2016-10-25] MEDS: TAMSULOSIN HCL 0.4 MG CAP PO SCH (21:46)
[2016-10-26] MEDS: MORPHINE SULFATE 4 MG/ML INJ IV PUSH PRN ×4 (01:07→09:26)
[2016-10-26] MEDS: SODIUM BICARBONATE 650 MG TAB PO SCH ×3 (06:00→20:12)
[2016-10-26] MEDS: HEPARIN SODIUM - SQ 10,000 UNITS/ML VIAL SQ SCH ×3 (06:00→20:13)
[2016-10-26 07:10] LABS: BICARBONATE 19.8 MEQ/L (21.0-32.0); POTASSIUM 5.2 MEQ/L (3.5-5.1)
[2016-10-26 07:46] LABS: CALCIUM-PROTEIN CORRECTED 8.4 MG/DL (8.5-10.1)
[2016-10-26 08:00] VITALS: BP 151/84; PULSE 85; RESP 18; TEMP 99.2; O2SAT 100
[2016-10-26] MEDS: CYCLOBENZAPRINE HCL 10 MG TAB PO SCH ×3 (09:24→16:37)
[2016-10-26] MEDS: GABAPENTIN 300 MG CAP PO SCH (09:24)
[2016-10-26] MEDS: hydrALAZINE HCL 100 MG TAB PO SCH ×3 (09:24→16:38)
[2016-10-26] MEDS: PANTOPRAZOLE SOD 40 MG DELAYED RELEASE TAB PO SCH (09:25)
[2016-10-26] MEDS: ASPIRIN EC 81 MG TABEC PO SCH (09:25)
[2016-10-26] MEDS: CLOPIDOGREL 75 MG TAB PO SCH (09:25)
[2016-10-26] MEDS: CARVEDILOL 12.5 MG TAB PO SCH ×2 (09:25→20:10)
[2016-10-26] MEDS: SODIUM CHLORIDE 0.9% FLUSH 10 ML FLUSH IV FLUSH SCH ×2 (09:26→20:10)
--- NOTE | 2016-10-26 09:31 | HHI.NPPN ---
Subjective History of Present Illness The patient is a 56 yo AA male who is known to our services for CKD, HTN, proteinuria, and anemia. He has unfortunately had progressive renal decline over the past several months and presented to the ED on 10/21 by the urge of his PCP, Dr. Quintero, as it was noted on outpatient labs that he was in renal failure. Reports feeling fatigued, worsening swelling, and increased SOB since his discharge from here in August for PNA. At that admission, his Lasix was increased from 20mg MWF to 40mg BID (however states he is not always compliant with taking BID). He has not been on Losartan nor KCl since August admission. BP medications include Coreg 12.5mg BID, Hydralazine 100mg q8h, and Amlodipine 10mg QD. Says AM pressure are typically very high in the 190-200mmHg range, but improve to 140mmHg systolically in the afternoons. Denies any recent illness, no abx since August, no contrast exposure. Some nausea and decrease in appetite. Loose stools after abx in August, but no diarrhea nor vomiting. 10/21 SCr outpatient 5.69 eGFR 13 Admitting SCr 5.99 with eGFR 12 SCr at consult 5.81 eGFR 12 Interval History Pt reports he is still feeling generally fatigued and weak. Having pains in RLE that he describes as muscular weakness. Is doing PT daily and says he is getting some benefit from this. (Kelley Lora) Review of Systems General Constitutional: Fatigue (Kelley Lora) Objective Data Data Vital Signs Date Time Temp Pulse Resp B/P (MAP) Pulse Ox O2 Delivery O2 Flow Rate FiO2 10/25/16 22:00 92 10/25/16 20:10 Room Air 10/25/16 20:00 99.5 94 20 140/83 (102) 95 10/25/16 16:00 98.7 92 16 135/82 (99) 96 10/25/16 12:00 99.2 83 18 134/76 (95) 96 (Kelley Lora) -: 10/25/16 0430 10/26/16 0528 Imaging Last Impressions Renal Ultrasound 10/22/16 0000 Signed Impressions: Service Date/Time: Tuesday, October 22, 2016 13:15 - CONCLUSION: 1. No evidence for obstructive uropathy. 2. Redemonstration of increased renal cortical echogenicity consistent with medical renal disease. Elan Mcclendon MD Abdomen/Pelvis CT 10/22/16 0000 Signed Impressions: Service Date/Time: Saturday, October 22, 2016 19:55 - CONCLUSION: 1. Small free fluid in Morison's pouch and in the pelvic cavity of unclear etiology. Nothing organized or drainable. 2. No renal stones or evidence of obstructive uropathy. 3. Trace pleural fluid of each visualized lung base. Troy Dean MD Chest X-Ray 10/21/16 1914 Signed Impressions: Service Date/Time: September 19:28 - CONCLUSION: Underinflation with mild atelectasis at the lung bases. Otherwise, no acute finding is identified. Troy Cruz MD Medication Review Current Medications Medications (Trade) Dose Ordered Sig/Ramakrishna Route Start Time Stop Time Status Last Admin (NS Flush) 2 ml UNSCH PRN IV FLUSH 10/21/16 21:45 (NS Flush) 2 ml BID IV FLUSH 10/22/16 09:00 10/25/16 21:46 (Narcan Inj) 0.4 mg UNSCH PRN IV 10/21/16 21:45 (Norvasc) 10 mg DAILY PO 10/22/16 09:00 10/25/16 09:03 (Ecotrin Ec) 81 mg DAILY PO 10/22/16 09:00 10/25/16 09:03 (Lipitor) 80 mg HS PO 10/22/16 21:00 10/25/16 21:46 (Coreg) 25 mg BID PO 10/22/16 09:00 10/25/16 21:46 (Plavix) 75 mg DAILY PO 10/22/16 09:00 10/25/16 09:02 (Flexeril) 10 mg TID PO 10/22/16 09:00 10/25/16 18:06 (Apresoline) 100 mg TID PO 10/22/16 09:00 10/25/16 18:06 (Remeron) 15 mg HS PO 10/22/16 21:00 10/25/16 21:46 (Protonix) 40 mg DAILY PO 10/22/16 09:00 8/28/17 09:03 (Flomax) 0.4 mg HS PO 10/22/16 21:00 10/25/16 21:46 (Morphine Inj) 2 mg Q3H PRN IV PUSH 10/22/16 03:00 10/26/16 06:30 (Heparin Inj) 5,000 units Q8HR SQ 10/22/16 14:00 10/26/16 06:00 (Neurontin) 300 mg DAILY PO 10/23/16 09:00 10/25/16 09:03 (Sodium Bicarbonate) 650 mg Q8HR PO 10/22/16 14:00 10/26/16 06:00 (Kelley Lora) Physical Exam General Appearance: Well Developed, Well Nourished, No Acute Distress, Comfortable (Kelley Lora) Pulmonary Resp Exam: Clear Bilaterally, Breath Sounds Equal, No Distress (Kelley Lora) Cardiology CV Exam: Regular, Normal Sinus Rhythm, Good Perfusion (Kelley Lora) Gastrointestinal/Abdomen GI Exam: Soft, Non-Tender (Kelley Lora) Integumentary Skin Exam: Clear, Warm, Normal Turgor (Kelley Lora) Extremeties Extremities Exam: No Edema (Kelley Lora) Neurologic Neuro Exam: Alert, Awake, Oriented, Speech Clear, Moving All Extremities (Kelley Lora) Psychiatric Psych Exam: Appropriate Responses (Kelley Lora) Assessment/Plan Problem List: (1) CKD (chronic kidney disease) stage 5, GFR less than 15 ml/min ICD Codes: N18.5 - Chronic kidney disease, stage 5 Plan: Renal functions plateaued today with eGFR 14. Mild hyperkalemia and mildly worsening acidosis. Kayexalate 15g x1 today. Increase bicarb to 1300mg q8h Of interest, he did have presence of urine eosinophils. Uncertain significance , however, he was recently on Levaquin for PNA as well as long-term Protonix. Will switch Protonix to Pepcid. Hopefully renal functions will improve. It remains to be seen if dialysis can be avoided this admission or not. He has been advised that even if we can avoid for the present, he will require dialysis within the upcoming months. As mentioned previously, would avoid ACEi, ARBs, potassium sparing diuretics, and Bactrim in the future as may induce hyperkalemia. Patient's lack of insurance was discussed with him also. Freestanding dialysis facility most likely will not accept the patient unless he has a payor source such as Medicare and or Medicaid. He may have to remain in the hospital until a payor source is found or if the hospital will provide outpatient dialysis service to him may be able to be discharged post-initiation of dialysis but this remains to be determined as discussed with him. With improvement in renal function we may be able to void dialysis presently and it may aid the patient in acquiring insurance coverage before dialysis is required. Defer to case management in this regard. 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 Last Edited By: Nita Marie on Oct 23, 2016 17:07 (2) Hyperkalemia ICD Codes: E87.5 - Hyperkalemia Status: Acute Plan: Kayexalate today Hold ACEi and ARBs Monitor. (3) Metabolic acidosis ICD Codes: E87.2 - Acidosis Status: Acute Plan: Likely related to CKD. Increase po bicarb (4) Hypertension ICD Codes: I10 - Essential (primary) hypertension Status: Chronic Plan: Continue on current regimen. (5) Prostate enlargement ICD Codes: N40.0 - Benign prostatic hyperplasia without lower urinary tract symptoms Status: Acute (6) CAD (coronary artery disease) ICD Codes: I25.10 - Atherosclerotic heart disease of [place] coronary artery without angina pectoris Status: Acute (7) Vitamin D deficiency ICD Codes: E55.9 - Vitamin D deficiency, unspecified Status: Acute (8) Anemia ICD Codes: D64.9 - Anemia, unspecified Status: Acute Plan: Likely of renal disease (Kelley Lora) Plan The exam, history, and the medical decision-making described in the above note were completed with the assistance of the PACharlee. I reviewed and agree with the findings presented. (Radha Marie MD) Kelley Lora Oct 26, 2016 09:31 Radha Marie MD Oct 27, 2016 17:30
[2016-10-26] MEDS ORDERED: SODIUM POLYSTYRENE SULFONATE SUSP 15 GM/60 ML CUP PO ONE (09:45)
--- NOTE | 2016-10-26 10:04 | HHI.PR ---
Subjective Remarks Patient reports that he is still feeling weak with some nonspecific, generalized muscle aches. No nausea or vomiting. States he is drinking okay. Renal function essentially unchanged, GFR still 14. Mild acidosis. K mildly elevated. Objective Vitals Vital Signs Date Time Temp Pulse Resp B/P (MAP) Pulse Ox O2 Delivery O2 Flow Rate FiO2 10/25/16 22:00 92 10/25/16 20:10 Room Air 10/25/16 20:00 99.5 94 20 140/83 (102) 95 10/25/16 16:00 98.7 92 16 135/82 (99) 96 10/25/16 12:00 99.2 83 18 134/76 (95) 96 I/O 10/25/16 10/25/16 10/25/16 10/26/16 10/26/16 10/26/16 07:00 15:00 23:00 07:00 15:00 23:00 Intake Total 240 ml 720 ml 0 ml Output Total 800 ml 400 ml Balance -560 ml 720 ml -400 ml Intake Oral 240 ml 720 ml IV Total 0 ml 0 ml Output Urine Total 800 ml 400 ml # Voids 3 # Bowel Movements 0 Result Diagram: 10/25/16 0430 10/26/16 0528 Objective Remarks GENERAL: This is a well-nourished, well-developed patient, in no apparent distress. CARDIOVASCULAR: Normal rate and regular rhythm. 2/6 TAMARA murmur RESPIRATORY: Good respiratory efforts. Breath sounds equal and clear to auscultation bilaterally. GASTROINTESTINAL: Abdomen soft, non-tender, non-distended. Normal active bowel sounds MUSCULOSKELETAL: Extremities without cyanosis, or edema. NEURO: Alert & Oriented x4 to person, place, time, situation. Moves all ext x4 PSYCH: Appropriate mood and affect. A/P Assessment and Plan 56-year-old male with a past medical history of HTN, CAD, COPD, CKD who presented with weakness, dizziness, nausea, likely secondary to uremia from worsening renal failure CKD stage V, probably progressing to end-stage: Creatinine has been steadily trending up for the past year, uncertain if he will require dialysis during this admission. Mildly hyperkalemic and acidotic. Creatinine and GFR stable today. Serum creatinine stable. GFR 13>>14>.14. Lasix has been on hold. Creatinine 5.71>>5.4>>5.37>>5.37 - Appreciate nephrology following. Discussed the case with them today. Kayexalate ordered. Hold bicarbonate increased. He does have some eosinophilia on his urine. Protonix changed to Pepcid per nephrology. -Continue to monitor renal functions. Avoid nephrotoxins. -Once dialysis is started, He will need outpatient dialysis set up and a source of funding as he has no insurance. Hyperkalemia from renal failure: See above. Given Kayexalate and potassium improved. 5.2>>5.0>5.0>>5.2. Avoid medication that can increase potassium. Follow-up BMP. - Low potassium diet. Follow-up BMP in a.m. Chronic msk pain: Patient is already on Flexiril, Neurontin. Discontinue IV morphine, change to as needed Percocet. PT consulted. Other chronic medical conditions include HTN, depression, neuropathy, HLD, CAD: Stable at this time and will continue home medications as indicated. DVT prophylaxis: Heparin Santo Hartmann MD Oct 26, 2016 10:04
[2016-10-26] MEDS: oxyCODONE/ACETAMINOPHEN 5 MG/325 MG TAB PO PRN ×3 (11:50→20:10)
[2016-10-26 12:00] VITALS: BP 154/78; PULSE 86; RESP 16; TEMP 99.5; O2SAT 98
[2016-10-26 16:00] VITALS: BP 147/82; PULSE 83; RESP 16; TEMP 99.1; O2SAT 96
[2016-10-26 20:00] VITALS: BP 146/75; PULSE 89; RESP 18; TEMP 98.7; O2SAT 95
[2016-10-26] MEDS: FAMOTIDINE 20 MG TAB PO SCH (20:10)
[2016-10-26] MEDS: ATORVASTATIN 80 MG TAB PO SCH (20:10)
[2016-10-26] MEDS: MIRTAZAPINE 15 MG TAB PO SCH (20:10)
[2016-10-26] MEDS: TAMSULOSIN HCL 0.4 MG CAP PO SCH (20:10)
[2016-10-26 22:00] VITALS: PULSE 88
[2016-10-26 22:30] VITALS: BP 112/56; PULSE 89; RESP 18; TEMP 98.7; O2SAT 93
[2016-10-27] VITALS (7 sets, daily range): BP systolic 110–155; BP diastolic 59–81; PULSE 68–92; RESP 17–19; TEMP 96.2–98.3; O2SAT 97–98
[2016-10-27] MEDS: oxyCODONE/ACETAMINOPHEN 5 MG/325 MG TAB PO PRN ×5 (00:53→19:00)
[2016-10-27] MEDS: HEPARIN SODIUM - SQ 10,000 UNITS/ML VIAL SQ SCH ×3 (04:23→21:32)
[2016-10-27] MEDS: SODIUM BICARBONATE 650 MG TAB PO SCH ×3 (04:23→21:31)
[2016-10-27 05:44] LABS: HEMATOCRIT 27.6 % (39.0-51.0); MEAN CELL VOLUME 99.2 FL (80.0-100.0); MEAN CORPUSCULAR HGB CONC 32.3 % (32.0-36.0); PLATELET COUNT 215 TH/MM3 (150-450); RED BLOOD COUNT 2.79 MIL/MM3 (4.50-5.90); RED CELL DISTRIBUTION WIDTH 14.4 % (11.6-17.2); REVIEW FLAG FINAL; WHITE BLOOD COUNT 12.6 TH/MM3 (4.0-11.0)
[2016-10-27 06:02] LABS: BICARBONATE 22.7 MEQ/L (21.0-32.0); POTASSIUM 4.6 MEQ/L (3.5-5.1)
[2016-10-27] MEDS: GABAPENTIN 300 MG CAP PO SCH (09:01)
[2016-10-27] MEDS: CLOPIDOGREL 75 MG TAB PO SCH (09:01)
[2016-10-27] MEDS: hydrALAZINE HCL 100 MG TAB PO SCH ×3 (09:01→17:31)
[2016-10-27] MEDS: CARVEDILOL 12.5 MG TAB PO SCH ×2 (09:01→21:30)
[2016-10-27] MEDS: CYCLOBENZAPRINE HCL 10 MG TAB PO SCH ×3 (09:01→17:31)
[2016-10-27] MEDS: ASPIRIN EC 81 MG TABEC PO SCH (09:01)
[2016-10-27] MEDS: SODIUM CHLORIDE 0.9% FLUSH 10 ML FLUSH IV FLUSH SCH ×2 (09:02→21:30)
--- NOTE | 2016-10-27 11:07 | HHI.PR ---
Subjective Remarks Patient reports he was talking in his sleep earlier. Otherwise he has no new complaints. States he is still not urinating much. Not sleeping well. Renal functions essentially unchanged. Objective Vitals Vital Signs Date Time Temp Pulse Resp B/P (MAP) Pulse Ox O2 Delivery O2 Flow Rate FiO2 10/27/16 08:00 97.2 68 17 155/79 (104) 98 10/27/16 04:00 98.3 72 18 138/81 (100) 97 10/27/16 00:00 98.2 76 18 130/81 (97) 97 10/26/16 22:30 98.7 89 18 112/56 (74) 93 10/26/16 22:00 88 10/26/16 21:00 Room Air 10/26/16 20:00 98.7 89 18 146/75 (98) 95 10/26/16 16:00 99.1 83 16 147/82 (103) 96 10/26/16 12:00 99.5 86 16 154/78 (103) 98 10/26/16 12:00 99.5 86 16 154/78 (103) 98 I/O 10/26/16 10/26/16 10/26/16 10/27/16 10/27/16 10/27/16 06:59 14:59 22:59 06:59 14:59 22:59 Intake Total 0 ml 960 ml 0 ml Output Total 400 ml Balance -400 ml 960 ml 0 ml Intake Oral 960 ml IV Total 0 ml 0 ml 0 ml Output Urine Total 400 ml # Voids 0 # Bowel Movements 0 Result Diagram: 10/27/16 0414 10/27/16 0414 Objective Remarks GENERAL: This is a well-nourished, well-developed patient, in no apparent distress. CARDIOVASCULAR: Normal rate and regular rhythm. 2/6 TAMARA murmur RESPIRATORY: Good respiratory efforts. Breath sounds equal and clear to auscultation bilaterally. GASTROINTESTINAL: Abdomen soft, non-tender, non-distended. Normal active bowel sounds MUSCULOSKELETAL: Extremities without cyanosis, or edema. NEURO: Alert & Oriented x4 to person, place, time, situation. Moves all ext x4 PSYCH: Appropriate mood and affect. A/P Assessment and Plan 56-year-old male with a past medical history of HTN, CAD, COPD, CKD who presented with weakness, dizziness, nausea, likely secondary to uremia from worsening renal failure CKD stage V, probably progressing to end-stage: Creatinine has been steadily trending up for the past year, uncertain if he will require dialysis during this admission. Mildly hyperkalemic and acidotic. Creatinine and GFR stable today. Serum creatinine stable. GFR 13>>14>.14>>14. Lasix has been on hold. Creatinine 5.71>>5.4>>5.37>>5.37>>5.33 - Appreciate nephrology following. Further plans per Nephrology. - Continue to monitor renal functions. Avoid nephrotoxins. - Once dialysis is started, He will need outpatient dialysis set up and a source of funding as he has no insurance. Hyperkalemia from renal failure: See above. Status post Kayexalate. 5.2>>5.0> 5.0>>5.2>>4.6. Avoid medication that can increase potassium. Follow-up BMP. - Low potassium diet. Follow-up BMP in a.m. Chronic msk pain: Patient is already on Flexiril, Neurontin. Discontinue IV morphine, change to as needed Percocet. PT consulted. Other chronic medical conditions include HTN, depression, neuropathy, HLD, CAD: Stable at this time and will continue home medications as indicated. DVT prophylaxis: Heparin Discharge Planning Unclear if patient will require dialysis during this admission. Nephrology following. Santo Hartmann MD Oct 27, 2016 11:07
--- NOTE | 2016-10-27 17:36 | HHI.NPPN ---
Subjective History of Present Illness The patient is a 56 yo AA male who is known to our services for CKD, HTN, proteinuria, and anemia. He has unfortunately had progressive renal decline over the past several months and presented to the ED on 10/21 by the urge of his PCP, Dr. Quintero, as it was noted on outpatient labs that he was in renal failure. Reports feeling fatigued, worsening swelling, and increased SOB since his discharge from here in August for PNA. At that admission, his Lasix was increased from 20mg MWF to 40mg BID (however states he is not always compliant with taking BID). He has not been on Losartan nor KCl since August admission. BP medications include Coreg 12.5mg BID, Hydralazine 100mg q8h, and Amlodipine 10mg QD. Says AM pressure are typically very high in the 190-200mmHg range, but improve to 140mmHg systolically in the afternoons. Denies any recent illness, no abx since August, no contrast exposure. Some nausea and decrease in appetite. Loose stools after abx in August, but no diarrhea nor vomiting. 10/21 SCr outpatient 5.69 eGFR 13 Admitting SCr 5.99 with eGFR 12 SCr at consult 5.81 eGFR 12 Interval History Patient indicating he is developing edema. No shortness of breath however. Review of Systems General Constitutional: Fatigue Objective Data Data Vital Signs Date Time Temp Pulse Resp B/P (MAP) Pulse Ox O2 Delivery O2 Flow Rate FiO2 10/27/16 16:00 96.2 79 19 141/77 (98) 98 10/27/16 12:00 97.1 72 19 110/59 (76) 98 10/27/16 08:00 97.2 68 17 155/79 (104) 98 10/27/16 04:00 98.3 72 18 138/81 (100) 97 10/27/16 00:00 98.2 76 18 130/81 (97) 97 10/26/16 22:30 98.7 89 18 112/56 (74) 93 10/26/16 22:00 88 10/26/16 21:00 Room Air 10/26/16 20:00 98.7 89 18 146/75 (98) 95 -: 10/27/16 0414 10/27/16 0414 Physical Exam General Appearance: Well Developed, Well Nourished, No Acute Distress, Comfortable Pulmonary Resp Exam: Clear Bilaterally, Breath Sounds Equal, No Distress Cardiology CV Exam: Regular, Normal Sinus Rhythm, Good Perfusion Gastrointestinal/Abdomen GI Exam: Soft, Non-Tender Integumentary Skin Exam: Clear, Warm, Normal Turgor Extremeties Extremities Exam: No Edema, Moderate Edema (involving the thighs, hips and lower back 2 plus.) Neurologic Neuro Exam: Alert, Awake, Oriented, Speech Clear, Moving All Extremities Psychiatric Psych Exam: Appropriate Responses Assessment/Plan Problem List: (1) CKD (chronic kidney disease) stage 5, GFR less than 15 ml/min ICD Codes: N18.5 - Chronic kidney disease, stage 5 Plan: The patient's renal function appears to have stabilized with a GFR of 14 and acid base status being maintained with by mouth bicarbonate and hyperkalemia has resolved. Unfortunately however the patient is now developing signs of significant fluid retention. I will order 1 dose of IV bumetanide today with subsequent bumetanide by mouth starting tomorrow. If azotemia worsens significantly with proceed with initiation of dialysis probably Tuesday with placement of a hemodialysis PermCath as discussed with the patient. Will reduce amlodipine in view of addition of loop diuretic to avoid hypotension. As mentioned previously, would avoid ACEi, ARBs, potassium sparing diuretics, and Bactrim in the future as may induce hyperkalemia. Patient's lack of insurance was discussed with him also. Freestanding dialysis facility most likely will not accept the patient unless he has a payor source such as Medicare and or Medicaid. He may have to remain in the hospital until a payor source is found or if the hospital will provide outpatient dialysis service to him may be able to be discharged post-initiation of dialysis but this remains to be determined as discussed with him. 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 Last Edited By: Nita Marie on Oct 23, 2016 17:07 (2) Hyperkalemia ICD Codes: E87.5 - Hyperkalemia Status: Acute Plan: Kayexalate today Hold ACEi and ARBs Monitor. (3) Metabolic acidosis ICD Codes: E87.2 - Acidosis Status: Acute Plan: Likely related to CKD. Increase po bicarb (4) Hypertension ICD Codes: I10 - Essential (primary) hypertension Status: Chronic Plan: Continue on current regimen. (5) Prostate enlargement ICD Codes: N40.0 - Benign prostatic hyperplasia without lower urinary tract symptoms Status: Acute (6) CAD (coronary artery disease) ICD Codes: I25.10 - Atherosclerotic heart disease of [place] coronary artery without angina pectoris Status: Acute (7) Vitamin D deficiency ICD Codes: E55.9 - Vitamin D deficiency, unspecified Status: Acute (8) Anemia ICD Codes: D64.9 - Anemia, unspecified Status: Acute Plan: Likely of renal disease Radha Marie MD Oct 27, 2016 17:36
[2016-10-27] MEDS ORDERED: BUMETANIDE INJ 1 MG/4 ML VIAL IV PUSH ONE (17:45)
[2016-10-27] MEDS: TAMSULOSIN HCL 0.4 MG CAP PO SCH (21:30)
[2016-10-27] MEDS: FAMOTIDINE 20 MG TAB PO SCH (21:31)
[2016-10-27] MEDS: MIRTAZAPINE 15 MG TAB PO SCH (21:31)
[2016-10-27] MEDS: ATORVASTATIN 80 MG TAB PO SCH (21:31)
[2016-10-28] VITALS: BP 141/85; PULSE 80; RESP 18; TEMP 97.5; O2SAT 97
[2016-10-28] MEDS: oxyCODONE/ACETAMINOPHEN 5 MG/325 MG TAB PO PRN ×5 (00:28→17:50)
[2016-10-28 04:00] VITALS: BP 140/83; PULSE 76; RESP 18; O2SAT 94
[2016-10-28] MEDS: HEPARIN SODIUM - SQ 10,000 UNITS/ML VIAL SQ SCH ×3 (05:07→21:07)
[2016-10-28] MEDS: SODIUM BICARBONATE 650 MG TAB PO SCH ×3 (05:08→21:06)
[2016-10-28 06:23] LABS: BICARBONATE 22.9 MEQ/L (21.0-32.0); POTASSIUM 4.5 MEQ/L (3.5-5.1)
[2016-10-28 08:30] VITALS: BP 149/84; PULSE 70; RESP 20; TEMP 98.4; O2SAT 96
[2016-10-28] MEDS: BUMETANIDE 1 MG TAB PO SCH (09:07)
[2016-10-28] MEDS: hydrALAZINE HCL 100 MG TAB PO SCH ×3 (09:07→17:50)
[2016-10-28] MEDS: CARVEDILOL 12.5 MG TAB PO SCH ×2 (09:08→21:05)
[2016-10-28] MEDS: GABAPENTIN 300 MG CAP PO SCH (09:08)
[2016-10-28] MEDS: amLODIPine BESYLATE 5 MG TAB PO SCH (09:08)
[2016-10-28] MEDS: CYCLOBENZAPRINE HCL 10 MG TAB PO SCH ×3 (09:08→17:49)
[2016-10-28] MEDS: CLOPIDOGREL 75 MG TAB PO SCH (09:08)
[2016-10-28] MEDS: ASPIRIN EC 81 MG TABEC PO SCH (09:08)
[2016-10-28] MEDS: SODIUM CHLORIDE 0.9% FLUSH 10 ML FLUSH IV FLUSH SCH ×2 (09:12→21:05)
--- NOTE | 2016-10-28 09:33 | HHI.PR ---
Subjective Remarks Patient reports he still feel swollen. He was given a dose of IV Bumex yesterday. Currently on oral Bumex. No significant change in urine output that he can tell. Renal functions slightly worse. States he is feeling poorly overall and feels nauseous. He reports some intermittent abdominal discomfort which he believes is related to constipation. Objective Vitals Vital Signs Date Time Temp Pulse Resp B/P (MAP) Pulse Ox O2 Delivery O2 Flow Rate FiO2 10/28/16 08:30 98.4 70 20 149/84 (105) 96 10/28/16 04:00 76 18 140/83 (102) 94 10/28/16 00:00 97.5 80 18 141/85 (103) 97 10/27/16 22:00 92 10/27/16 20:15 Room Air 10/27/16 20:00 97.5 90 18 138/79 (98) 97 10/27/16 16:00 96.2 79 19 141/77 (98) 98 10/27/16 12:00 97.1 72 19 110/59 (76) 98 I/O 10/27/16 10/27/16 10/27/16 10/28/16 10/28/16 10/28/16 07:00 15:00 23:00 07:00 15:00 23:00 Intake Total 0 ml 390 ml 0 ml Balance 0 ml 390 ml 0 ml Intake Oral 390 ml IV Total 0 ml 0 ml 0 ml # Voids 3 # Bowel Movements 1 Result Diagram: 10/27/16 0414 10/28/16 0525 Objective Remarks GENERAL: This is a well-nourished, well-developed patient, in no apparent distress. CARDIOVASCULAR: Normal rate and regular rhythm. 2/6 TMAARA murmur RESPIRATORY: Good respiratory efforts. Breath sounds equal and clear to auscultation bilaterally. GASTROINTESTINAL: Abdomen soft, non-tender, non-distended. Normal active bowel sounds MUSCULOSKELETAL: Trace bilateral lower extremity edema. Patient reports his thigh feels swollen and tight. NEURO: Alert & Oriented x4 to person, place, time, situation. Moves all ext x4 PSYCH: Appropriate mood and affect. A/P Assessment and Plan 56-year-old male with a past medical history of HTN, CAD, COPD, CKD who presented with weakness, dizziness, nausea, likely secondary to uremia from worsening renal failure CKD stage V, probably progressing to end-stage: Creatinine has been steadily trending up for the past year, it appears that he will require dialysis during this admission. Creatinine and GFR stable today. Serum creatinine stable. GFR 13>>14>.14>>14>13. Lasix has been on hold. Creatinine 5.71>>5.4>>5.37>>5.37 >>5.33>>5.73 - Appreciate nephrology following. Patient started on Bumex. Further plans per Nephrology. - Continue to monitor renal functions. Avoid nephrotoxins. - Once dialysis is started, He will need outpatient dialysis set up and a source of funding as he has no insurance. Hyperkalemia from renal failure: See above. Status post Kayexalate. 5.2>>5.0> 5.0>>5.2>>4.6. Avoid medication that can increase potassium. Follow-up BMP. - Low potassium diet. Follow-up BMP in a.m. Chronic msk pain: Patient is already on Flexiril, Neurontin. Continue as needed Percocet. PT following. Other chronic medical conditions include HTN, depression, neuropathy, HLD, CAD: Stable at this time and will continue home medications as indicated. DVT prophylaxis: Heparin Discharge Planning Patient likely will require dialysis during this admission. Nephrology following. Santo Hartmann MD Oct 28, 2016 09:33
[2016-10-28] MEDS ORDERED: SENNOSIDES 8.6 MG TAB PO PRN (10:30)
[2016-10-28] MEDS ORDERED: BISACODYL 10 MG SUPP RECTAL PRN (10:30)
[2016-10-28] MEDS ORDERED: LACTULOSE SYRUP 20 GM/30 ML CUP PO PRN (10:30)
[2016-10-28] MEDS: MAGNESIUM HYDROXIDE SUSP 30 ML CUP PO PRN (11:17)
[2016-10-28 13:00] VITALS: BP 135/75; PULSE 72; RESP 20; TEMP 97.5; O2SAT 98
--- NOTE | 2016-10-28 17:40 | HHI.NPPN ---
Subjective History of Present Illness The patient is a 56 yo AA male who is known to our services for CKD, HTN, proteinuria, and anemia. He has unfortunately had progressive renal decline over the past several months and presented to the ED on 10/21 by the urge of his PCP, Dr. Quintero, as it was noted on outpatient labs that he was in renal failure. Reports feeling fatigued, worsening swelling, and increased SOB since his discharge from here in August for PNA. At that admission, his Lasix was increased from 20mg MWF to 40mg BID (however states he is not always compliant with taking BID). He has not been on Losartan nor KCl since August admission. BP medications include Coreg 12.5mg BID, Hydralazine 100mg q8h, and Amlodipine 10mg QD. Says AM pressure are typically very high in the 190-200mmHg range, but improve to 140mmHg systolically in the afternoons. Denies any recent illness, no abx since August, no contrast exposure. Some nausea and decrease in appetite. Loose stools after abx in August, but no diarrhea nor vomiting. 10/21 SCr outpatient 5.69 eGFR 13 Admitting SCr 5.99 with eGFR 12 SCr at consult 5.81 eGFR 12 Interval History Says he's generally feeling about the same---fatigued, decreased UOP, leg weakness, "tightness" in thighs from fluid (Kelley Lora) Review of Systems General Constitutional: Fatigue (Kelley Lora) Objective Data Data 10/28/16 10/29/16 19:00 07:00 Intake Total 480 ml Output Total 225 ml Balance 255 ml Intake Oral 480 ml Output Urine Total 225 ml # Bowel Movements 0 Vital Signs Date Time Temp Pulse Resp B/P (MAP) Pulse Ox O2 Delivery O2 Flow Rate FiO2 10/28/16 13:00 97.5 72 20 135/75 (95) 98 10/28/16 08:30 98.4 70 20 149/84 (105) 96 10/28/16 04:00 76 18 140/83 (102) 94 10/28/16 00:00 97.5 80 18 141/85 (103) 97 10/27/16 22:00 92 10/27/16 20:15 Room Air 10/27/16 20:00 97.5 90 18 138/79 (98) 97 (Kelley Lora) -: 10/27/16 0414 10/28/16 0525 Imaging Last Impressions Renal Ultrasound 10/22/16 0000 Signed Impressions: Service Date/Time: Saturday, October 22, 2016 13:15 - CONCLUSION: 1. No evidence for obstructive uropathy. 2. Redemonstration of increased renal cortical echogenicity consistent with medical renal disease. Elan Mcclendon MD Abdomen/Pelvis CT 10/22/16 0000 Signed Impressions: Service Date/Time: Saturday, October 22, 2016 19:55 - CONCLUSION: 1. Small free fluid in Morison's pouch and in the pelvic cavity of unclear etiology. Nothing organized or drainable. 2. No renal stones or evidence of obstructive uropathy. 3. Trace pleural fluid of each visualized lung base. Troy Dean MD Chest X-Ray 10/21/16 1914 Signed Impressions: Service Date/Time: September 19:28 - CONCLUSION: Underinflation with mild atelectasis at the lung bases. Otherwise, no acute finding is identified. Troy Cruz MD Medication Review Current Medications Medications (Trade) Dose Ordered Sig/Ramakrishna Route Start Time Stop Time Status Last Admin (NS Flush) 2 ml UNSCH PRN IV FLUSH 10/21/16 21:45 (NS Flush) 2 ml BID IV FLUSH 10/22/16 09:00 10/28/16 09:12 (Narcan Inj) 0.4 mg UNSCH PRN IV 10/21/16 21:45 (Ecotrin Ec) 81 mg DAILY PO 10/22/16 09:00 10/28/16 09:08 (Lipitor) 80 mg HS PO 10/22/16 21:00 10/27/16 21:31 (Coreg) 25 mg BID PO 10/22/16 09:00 10/28/16 09:08 (Plavix) 75 mg DAILY PO 10/22/16 09:00 10/28/16 09:08 (Flexeril) 10 mg TID PO 10/22/16 09:00 10/28/16 13:12 (Apresoline) 100 mg TID PO 10/22/16 09:00 10/28/16 13:00 (Remeron) 15 mg HS PO 10/22/16 21:00 10/27/16 21:31 (Flomax) 0.4 mg HS PO 10/22/16 21:00 10/27/16 21:30 (Heparin Inj) 5,000 units Q8HR SQ 10/22/16 14:00 10/28/16 13:13 (Neurontin) 300 mg DAILY PO 10/23/16 09:00 10/28/16 09:08 (Sodium Bicarbonate) 1,300 mg Q8HR PO 10/26/16 14:00 10/28/16 13:12 (Pepcid) 20 mg HS PO 10/26/16 21:00 10/27/16 21:31 (Percocet 5-325 Mg) 1 tab Q4H PRN PO 10/26/16 10:15 10/28/16 13:11 (Norvasc) 5 mg DAILY PO 10/28/16 09:00 10/28/16 09:08 (Bumetanide) 2 mg DAILY PO 10/28/16 09:00 10/28/16 09:07 (Milk Of Magnesia Liq) 30 ml Q12H PRN PO 10/28/16 10:30 10/28/16 11:17 (Senokot) 17.2 mg Q12H PRN PO 10/28/16 10:30 (Dulcolax Supp) 10 mg DAILY PRN RECTAL 10/28/16 10:30 (Lactulose Liq) 30 ml DAILY PRN PO 10/28/16 10:30 10/28/16 16:46 (Kelley Lora) Physical Exam General Appearance: Well Developed, Well Nourished, No Acute Distress, Comfortable (Kelley Lora) Pulmonary Resp Exam: Clear Bilaterally, Breath Sounds Equal, No Distress (Kelley Lora) Cardiology CV Exam: Regular, Normal Sinus Rhythm, Good Perfusion, Murmur (Kelley Lora) Gastrointestinal/Abdomen GI Exam: Soft, Non-Tender (Kelley Lora) Integumentary Skin Exam: Clear, Warm, Normal Turgor (Kelley Lora) Extremeties Extremities Exam: Moderate Edema (improved, but 1+ in bilat thighs & hips) (Kelley Lora) Neurologic Neuro Exam: Alert, Awake, Oriented, Speech Clear, Moving All Extremities (Kelley Lora) Psychiatric Psych Exam: Appropriate Responses (Kelley Lora) Assessment/Plan Problem List: (1) CKD (chronic kidney disease) stage 5, GFR less than 15 ml/min ICD Codes: N18.5 - Chronic kidney disease, stage 5 Plan: The patient's renal function appears to have stabilized with a GFR of 14 and acid base status being maintained with by mouth bicarbonate and hyperkalemia has resolved. Unfortunately however the patient is now developing signs of significant fluid retention requiring resumption of diuretics. At this time, we will plan on starting dialysis. Would ideally like PermaCath placement, but on Plavix and typically has to be off of this for 5 days before procedure (specials out for the evening so I could not confirm). As there is no urgency (edema improved and acid/base stable), we will hold the Plavix and plan on PC placement on Tuesday of next week. Should anything urgent arise, will place VasCath and start earlier. In interim, we will keep him on po Bumex and monitor closely. He has been advised of the risks of placement of dialysis PermCath as well as risks of dialysis including infection, hypotension, cardiac arrhythmia, and . Case management will have to be involved regarding insurance issues. Until he has an outpatient payor source (i.e. Medicaid/Medicare) he will be hospitalized to receive dialysis until this can be arranged. Advised that he may be here for upwards of 90 days and he is in verbal understanding of this. 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 Last Edited By: Nita Marie on Oct 23, 2016 17:07 (2) Hyperkalemia ICD Codes: E87.5 - Hyperkalemia Status: Acute Plan: Resolved. Continue to hold ACEi and ARBs (3) Metabolic acidosis ICD Codes: E87.2 - Acidosis Status: Acute Plan: Likely related to CKD. Improved with increase of po bicarb (4) Hypertension ICD Codes: I10 - Essential (primary) hypertension Status: Chronic Plan: Continue on current regimen. (5) Prostate enlargement ICD Codes: N40.0 - Benign prostatic hyperplasia without lower urinary tract symptoms Status: Acute (6) CAD (coronary artery disease) ICD Codes: I25.10 - Atherosclerotic heart disease of [place] coronary artery without angina pectoris Status: Acute (7) Vitamin D deficiency ICD Codes: E55.9 - Vitamin D deficiency, unspecified Status: Acute (8) Anemia ICD Codes: D64.9 - Anemia, unspecified Status: Acute Plan: Likely of renal disease (Kelley Lora) Plan The exam, history, and the medical decision-making described in the above note were completed with the assistance of the PA-C. I reviewed and agree with the findings presented. I attest that I had a [id number] encounter with the patient on the same day, and personally performed and documented my assessment and findings in the medical record. (Radha Marie MD) Kelley Lora Oct 28, 2016 17:40 Radha Marie MD Oct 30, 2016 13:35
[2016-10-28 20:00] VITALS: BP 154/89; PULSE 77; RESP 18; TEMP 97.4; O2SAT 100
[2016-10-28] MEDS: TAMSULOSIN HCL 0.4 MG CAP PO SCH (21:05)
[2016-10-28] MEDS: ATORVASTATIN 80 MG TAB PO SCH (21:05)
[2016-10-28] MEDS: FAMOTIDINE 20 MG TAB PO SCH (21:06)
[2016-10-28] MEDS: MIRTAZAPINE 15 MG TAB PO SCH (21:06)
[2016-10-29] VITALS (9 sets, daily range): BP systolic 152–157; BP diastolic 81–89; PULSE 71–96; RESP 16–21; TEMP 95.7–97.9; O2SAT 96–98
[2016-10-29] MEDS: oxyCODONE/ACETAMINOPHEN 5 MG/325 MG TAB PO PRN ×6 (02:18→23:20)
[2016-10-29 05:27] LABS: HEMATOCRIT 27.1 % (39.0-51.0); MEAN CELL VOLUME 98.4 FL (80.0-100.0); MEAN CORPUSCULAR HEMOGLOBIN 32.2 PG (27.0-34.0); MEAN CORPUSCULAR HGB CONC 32.7 % (32.0-36.0); PLATELET COUNT 227 TH/MM3 (150-450); RED BLOOD COUNT 2.75 MIL/MM3 (4.50-5.90); RED CELL DISTRIBUTION WIDTH 13.9 % (11.6-17.2); WHITE BLOOD COUNT 17.9 TH/MM3 (4.0-11.0)
[2016-10-29 05:34] LABS: REVIEW FLAG FINAL
[2016-10-29 05:35] LABS: BICARBONATE 23.6 MEQ/L (21.0-32.0); POTASSIUM 4.6 MEQ/L (3.5-5.1)
[2016-10-29] MEDS: HEPARIN SODIUM - SQ 10,000 UNITS/ML VIAL SQ SCH ×3 (06:00→20:55)
[2016-10-29] MEDS: SODIUM BICARBONATE 650 MG TAB PO SCH ×3 (06:28→20:54)
[2016-10-29] MEDS: hydrALAZINE HCL 100 MG TAB PO SCH ×3 (09:18→17:37)
[2016-10-29] MEDS: BUMETANIDE 1 MG TAB PO SCH (09:20)
[2016-10-29] MEDS: CARVEDILOL 12.5 MG TAB PO SCH ×2 (09:22→20:52)
[2016-10-29] MEDS: ASPIRIN EC 81 MG TABEC PO SCH (09:23)
[2016-10-29] MEDS: GABAPENTIN 300 MG CAP PO SCH (09:24)
[2016-10-29] MEDS: CYCLOBENZAPRINE HCL 10 MG TAB PO SCH ×3 (09:24→17:37)
[2016-10-29] MEDS: amLODIPine BESYLATE 5 MG TAB PO SCH (09:25)
[2016-10-29] MEDS: SODIUM CHLORIDE 0.9% FLUSH 10 ML FLUSH IV FLUSH SCH ×2 (09:26→20:52)
--- NOTE | 2016-10-29 11:34 | HHI.PR ---
Subjective Remarks Patient reports he is feeling very fatigued. States he is talking in his sleep. No other specific complaints. Objective Vitals Vital Signs Date Time Temp Pulse Resp B/P (MAP) Pulse Ox O2 Delivery O2 Flow Rate FiO2 10/29/16 09:15 74 152/86 (108) 10/29/16 08:00 97.2 74 20 154/83 (106) 98 10/29/16 00:00 97.9 71 18 152/89 (110) 97 10/28/16 20:00 97.4 77 18 154/89 (110) 100 10/28/16 13:00 97.5 72 20 135/75 (95) 98 I/O 10/28/16 10/28/16 10/28/16 10/29/16 10/29/16 10/29/16 07:00 15:00 23:00 07:00 15:00 23:00 Intake Total 0 ml 480 ml Output Total 225 ml 200 ml Balance 0 ml 255 ml -200 ml Intake Oral 480 ml IV Total 0 ml Output Urine Total 225 ml 200 ml # Bowel Movements 0 Result Diagram: 10/29/16 0431 10/29/16 0431 Objective Remarks GENERAL: This is a well-nourished, well-developed patient, in no apparent distress. CARDIOVASCULAR: Normal rate and regular rhythm. 2/6 TAMARA murmur RESPIRATORY: Good respiratory efforts. Breath sounds equal and clear to auscultation bilaterally. GASTROINTESTINAL: Abdomen soft, non-tender, non-distended. Normal active bowel sounds MUSCULOSKELETAL: Trace bilateral lower extremity edema. Patient reports his thigh feels swollen and tight. NEURO: Alert & Oriented x4 to person, place, time, situation. Moves all ext x4 PSYCH: Appropriate mood and affect. A/P Assessment and Plan 56-year-old male with a past medical history of HTN, CAD, COPD, CKD who presented with weakness, dizziness, nausea, likely secondary to uremia from worsening renal failure CKD stage V, probably progressing to end-stage: Creatinine has been steadily trending up for the past year, it appears that he will require dialysis during this admission. Creatinine and GFR stable today. Serum creatinine stable. GFR 13>>14>.14>>14>13>14. Lasix has been on hold. Creatinine 5.71>>5.4>>5.37>> 5.37>>5.33>>5.73>>5.16 - Appreciate nephrology following. Plan to initiate dialysis. Patient has been on Plavix. Permacath to be placed by IR early next week. - Continue to monitor renal functions. Avoid nephrotoxins. - Once dialysis is started, He will need outpatient dialysis set up and a source of funding as he has no insurance. Discussed with case management. Hyperkalemia from renal failure: See above. Status post Kayexalate. 5.2>>5.0> 5.0>>5.2>>4.6. Avoid medication that can increase potassium. Follow-up BMP. - Low potassium diet. Follow-up BMP in a.m. Chronic msk pain: Patient is already on Flexiril, Neurontin. Continue as needed Percocet. PT following. Other chronic medical conditions include HTN, depression, neuropathy, HLD, CAD: Stable at this time and will continue home medications as indicated. DVT prophylaxis: Heparin Discharge Planning Patient will require dialysis during this admission. Nephrology following. Santo Hartmann MD Oct 29, 2016 11:34
[2016-10-29] MEDS: CHOLECALCIFEROL (VIT D3) 1000 UNIT TAB PO SCH (13:05)
--- NOTE | 2016-10-29 13:41 | HHI.NPPN ---
Subjective History of Present Illness The patient is a 56 yo AA male who is known to our services for CKD, HTN, proteinuria, and anemia. He has unfortunately had progressive renal decline over the past several months and presented to the ED on 10/21 by the urge of his PCP, Dr. Quintero, as it was noted on outpatient labs that he was in renal failure. Reports feeling fatigued, worsening swelling, and increased SOB since his discharge from here in August for PNA. At that admission, his Lasix was increased from 20mg MWF to 40mg BID (however states he is not always compliant with taking BID). He has not been on Losartan nor KCl since August admission. BP medications include Coreg 12.5mg BID, Hydralazine 100mg q8h, and Amlodipine 10mg QD. Says AM pressure are typically very high in the 190-200mmHg range, but improve to 140mmHg systolically in the afternoons. Denies any recent illness, no abx since August, no contrast exposure. Some nausea and decrease in appetite. Loose stools after abx in August, but no diarrhea nor vomiting. 10/21 SCr outpatient 5.69 eGFR 13 Admitting SCr 5.99 with eGFR 12 SCr at consult 5.81 eGFR 12 Interval History Pt overall says he's feeling the same (Kelley Lora) Review of Systems General Constitutional: Fatigue (Kelley Lora) Objective Data Data Vital Signs Date Time Temp Pulse Resp B/P (MAP) Pulse Ox O2 Delivery O2 Flow Rate FiO2 10/29/16 09:48 74 152/86 (108) 10/29/16 08:00 81 10/29/16 08:00 97.2 74 20 154/83 (106) 98 10/29/16 00:00 97.9 71 18 152/89 (110) 97 10/28/16 20:00 97.4 77 18 154/89 (110) 100 (Kelley Lora) -: 10/29/16 0431 10/29/16 0431 Imaging Last Impressions Renal Ultrasound 10/22/16 0000 Signed Impressions: Service Date/Time: Saturday, October 22, 2016 13:15 - CONCLUSION: 1. No evidence for obstructive uropathy. 2. Redemonstration of increased renal cortical echogenicity consistent with medical renal disease. Elan Mcclendon MD Abdomen/Pelvis CT 10/22/16 0000 Signed Impressions: Service Date/Time: Saturday, October 22, 2016 19:55 - CONCLUSION: 1. Small free fluid in Morison's pouch and in the pelvic cavity of unclear etiology. Nothing organized or drainable. 2. No renal stones or evidence of obstructive uropathy. 3. Trace pleural fluid of each visualized lung base. Troy Dean MD Chest X-Ray 10/21/16 1914 Signed Impressions: Service Date/Time: September 19:28 - CONCLUSION: Underinflation with mild atelectasis at the lung bases. Otherwise, no acute finding is identified. Troy Cruz MD Medication Review Current Medications Medications (Trade) Dose Ordered Sig/Ramakrishna Route Start Time Stop Time Status Last Admin (NS Flush) 2 ml UNSCH PRN IV FLUSH 10/21/16 21:45 (NS Flush) 2 ml BID IV FLUSH 10/22/16 09:00 10/29/16 09:26 (Narcan Inj) 0.4 mg UNSCH PRN IV 10/21/16 21:45 (Ecotrin Ec) 81 mg DAILY PO 10/22/16 09:00 10/29/16 09:23 (Lipitor) 80 mg HS PO 10/22/16 21:00 10/28/16 21:05 (Coreg) 25 mg BID PO 10/22/16 09:00 10/29/16 09:22 (Flexeril) 10 mg TID PO 10/22/16 09:00 10/29/16 13:02 (Apresoline) 100 mg TID PO 10/22/16 09:00 10/29/16 13:02 (Remeron) 15 mg HS PO 10/22/16 21:00 10/28/16 21:06 (Flomax) 0.4 mg HS PO 10/22/16 21:00 10/28/16 21:05 (Heparin Inj) 5,000 units Q8HR SQ 10/22/16 14:00 10/29/16 13:03 (Neurontin) 300 mg DAILY PO 10/23/16 09:00 10/29/16 09:24 (Sodium Bicarbonate) 1,300 mg Q8HR PO 10/26/16 14:00 10/29/16 13:02 (Pepcid) 20 mg HS PO 10/26/16 21:00 10/28/16 21:06 (Percocet 5-325 Mg) 1 tab Q4H PRN PO 10/26/16 10:15 10/29/16 10:58 (Norvasc) 5 mg DAILY PO 10/28/16 09:00 10/29/16 09:25 (Bumetanide) 2 mg DAILY PO 10/28/16 09:00 10/29/16 09:20 (Milk Of Magnesia Liq) 30 ml Q12H PRN PO 10/28/16 10:30 10/28/16 11:17 (Senokot) 17.2 mg Q12H PRN PO 10/28/16 10:30 (Dulcolax Supp) 10 mg DAILY PRN RECTAL 10/28/16 10:30 (Lactulose Liq) 30 ml DAILY PRN PO 10/28/16 10:30 10/28/16 16:46 (Vitamin D3) 2,000 units DAILY PO 10/29/16 12:00 10/29/16 13:05 (Kelley Lora) Physical Exam General Appearance: Well Developed, Well Nourished, No Acute Distress, Comfortable (Kelley Lora) Pulmonary Resp Exam: Clear Bilaterally, Breath Sounds Equal, No Distress (Kelley Lora) Cardiology CV Exam: Regular, Normal Sinus Rhythm, Good Perfusion, Murmur (Kelley Lora) Gastrointestinal/Abdomen GI Exam: Soft, Non-Tender (Kelley Lora) Integumentary Skin Exam: Clear, Warm, Normal Turgor (Kelley Lora) Extremeties Extremities Exam: Moderate Edema (improved, but 1+ in bilat thighs & hips) (Kelley Lora) Neurologic Neuro Exam: Alert, Awake, Oriented, Speech Clear, Moving All Extremities (Kelley Lora) Psychiatric Psych Exam: Appropriate Responses (Kelley Lora) Assessment/Plan Problem List: (1) CKD (chronic kidney disease) stage 5, GFR less than 15 ml/min ICD Codes: N18.5 - Chronic kidney disease, stage 5 Plan: Renal function stable. Plan remains at detailed below. Will follow thru the weekend. At this time, we will plan on starting dialysis. Would ideally like PermaCath placement, but on Plavix and typically has to be off of this for 5 days before procedure (specials out for the evening so I could not confirm). As there is no urgency (edema improved and acid/base stable), we will hold the Plavix and plan on PC placement on Tuesday of next week. Should anything urgent arise, will place VasCath and start earlier. In interim, we will keep him on po Bumex and monitor closely. He has been advised of the risks of placement of dialysis PermCath as well as risks of dialysis including infection, hypotension, cardiac arrhythmia, and . Case management will have to be involved regarding insurance issues. Until he has an outpatient payor source (i.e. Medicaid/Medicare) he will be hospitalized to receive dialysis until this can be arranged. Advised that he may be here for upwards of 90 days and he is in verbal understanding of this. 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 Last Edited By: Nita Marie on Oct 23, 2016 17:07 (2) Hyperkalemia ICD Codes: E87.5 - Hyperkalemia Status: Acute Plan: Resolved. Continue to hold ACEi and ARBs (3) Metabolic acidosis ICD Codes: E87.2 - Acidosis Status: Acute Plan: Likely related to CKD. Improved with increase of po bicarb (4) Hypertension ICD Codes: I10 - Essential (primary) hypertension Status: Chronic Plan: Continue on current regimen. (5) Prostate enlargement ICD Codes: N40.0 - Benign prostatic hyperplasia without lower urinary tract symptoms Status: Acute (6) CAD (coronary artery disease) ICD Codes: I25.10 - Atherosclerotic heart disease of [place] coronary artery without angina pectoris Status: Acute (7) Vitamin D deficiency ICD Codes: E55.9 - Vitamin D deficiency, unspecified Status: Acute (8) Anemia ICD Codes: D64.9 - Anemia, unspecified Status: Acute Plan: Likely of renal disease (Kelley Lora) Plan The exam, history, and the medical decision-making described in the above note were completed with the assistance of the PA-C. I reviewed and agree with the findings presented. (Radha Marie MD) Kelley Lora Oct 29, 2016 13:41 Radha Marie MD Oct 30, 2016 13:35
[2016-10-29] MEDS: FAMOTIDINE 20 MG TAB PO SCH (20:53)
[2016-10-29] MEDS: TAMSULOSIN HCL 0.4 MG CAP PO SCH (20:53)
[2016-10-29] MEDS: ATORVASTATIN 80 MG TAB PO SCH (20:53)
[2016-10-29] MEDS: MIRTAZAPINE 15 MG TAB PO SCH (20:54)
[2016-10-29 21:24] LABS: AUTOMATED NEUTROPHIL # 4.7 TH/MM3 (1.8-7.7); BASOPHIL # 0.1 TH/MM3 (0-0.2); BASOPHIL % 0.6 % (0.0-2.0); EOSINOPHIL # 0.5 TH/MM3 (0-0.4); EOSINOPHIL % 5.8 % (0.0-4.0); HEMATOCRIT 27.1 % (39.0-51.0); HEMO FLAGS DIFF FINAL; LYMPH % 30.4 % (9.0-44.0); LYMPHOCYTE # 2.6 TH/MM3 (1.0-4.8); MEAN CELL VOLUME 96.5 FL (80.0-100.0); MEAN CORPUSCULAR HEMOGLOBIN 32.8 PG (27.0-34.0); MEAN CORPUSCULAR HGB CONC 33.9 % (32.0-36.0); MONO % 8.5 % (0.0-8.0); NEUT % 54.7 % (16.0-70.0); PLATELET COUNT 251 TH/MM3 (150-450); RED BLOOD COUNT 2.81 MIL/MM3 (4.50-5.90); RED CELL DISTRIBUTION WIDTH 13.7 % (11.6-17.2); WHITE BLOOD COUNT 8.6 TH/MM3 (4.0-11.0)
[2016-10-30] MEDS: SODIUM BICARBONATE 650 MG TAB PO SCH ×3 (04:38→22:36)
[2016-10-30] MEDS: HEPARIN SODIUM - SQ 10,000 UNITS/ML VIAL SQ SCH ×3 (04:39→22:38)
[2016-10-30] MEDS: oxyCODONE/ACETAMINOPHEN 5 MG/325 MG TAB PO PRN ×3 (04:42→22:35)
[2016-10-30 06:07] VITALS: BP 160/84; PULSE 71; RESP 20; TEMP 97.1; O2SAT 99
[2016-10-30 07:11] LABS: HEMATOCRIT 27.8 % (39.0-51.0); MEAN CELL VOLUME 98.6 FL (80.0-100.0); MEAN CORPUSCULAR HEMOGLOBIN 32.6 PG (27.0-34.0); MEAN CORPUSCULAR HGB CONC 33.1 % (32.0-36.0); PLATELET COUNT 233 TH/MM3 (150-450); RED BLOOD COUNT 2.82 MIL/MM3 (4.50-5.90); RED CELL DISTRIBUTION WIDTH 14.1 % (11.6-17.2); REVIEW FLAG FINAL; WHITE BLOOD COUNT 8.4 TH/MM3 (4.0-11.0)
[2016-10-30 08:00] VITALS: BP 160/84; PULSE 72; RESP 17; TEMP 96.7; O2SAT 97
--- NOTE | 2016-10-30 08:53 | HHI.PR ---
Subjective Remarks No acute events overnight. Afebrile, vital signs stable. Patient continues to complain of "pain all over his body." However, when the patient was interviewed this morning he was sleeping comfortably in his bed. He requests an increase in his pain medication. He has no other complaints at this time. Expresses understanding of his situation and the plan. Objective Vitals Vital Signs Date Time Temp Pulse Resp B/P (MAP) Pulse Ox O2 Delivery O2 Flow Rate FiO2 10/30/16 08:00 96.7 72 17 160/84 (109) 97 10/30/16 06:07 97.1 71 20 160/84 (109) 99 10/29/16 20:00 95.7 80 21 157/87 (110) 98 10/29/16 19:44 96 10/29/16 16:00 97.7 72 16 156/81 (106) 96 10/29/16 13:00 96.3 73 20 152/86 (108) 97 10/29/16 09:48 74 152/86 (108) I/O 10/29/16 10/29/16 10/29/16 10/30/16 10/30/16 10/30/16 07:00 15:00 23:00 07:00 15:00 23:00 Intake Total 480 ml 600 ml 450 ml Output Total 200 ml 475 ml 150 ml Balance -200 ml 5 ml 450 ml 450 ml Intake Oral 480 ml 600 ml 450 ml Output Urine Total 200 ml 475 ml 150 ml # Voids 3 1 # Bowel Movements 0 0 Result Diagram: 10/30/16 0510 10/29/16 0431 Objective Remarks GENERAL: This is a well-nourished, well-developed patient, in no apparent distress. CARDIOVASCULAR: Normal rate and regular rhythm. 2/6 TAMARA murmur RESPIRATORY: Good respiratory efforts. Breath sounds equal and clear to auscultation bilaterally. GASTROINTESTINAL: Abdomen soft, non-tender, non-distended. Normal active bowel sounds MUSCULOSKELETAL: Trace bilateral lower extremity edema. Patient reports his thigh feels swollen and tight. NEURO: Alert & Oriented x4 to person, place, time, situation. Moves all ext x4 PSYCH: Appropriate mood and affect. A/P Assessment and Plan 56-year-old male with a past medical history of HTN, CAD, COPD, CKD who presented with weakness, dizziness, nausea, likely secondary to uremia from worsening renal failure CKD stage V, probably progressing to end-stage: Creatinine has been steadily trending up for the past year, it appears that he will require dialysis during this admission. Creatinine and GFR stable today. Serum creatinine stable. GFR 13>>14>.14>>14>13>14. Lasix has been on hold. Creatinine 5.71>>5.4>>5.37>> 5.37>>5.33>>5.73>>5.16 - Appreciate nephrology following. Plan to initiate dialysis. Patient has been on Plavix. Permacath to be placed by IR early next week, likely to stay. - Continue to monitor renal functions. Avoid nephrotoxins. - Once dialysis is started, He will need outpatient dialysis set up and a source of funding as he has no insurance. Discussed with case management. Hyperkalemia from renal failure: See above. Status post Kayexalate. 5.2>>5.0> 5.0>>5.2>>4.6. Avoid medication that can increase potassium. Follow-up BMP. - Low potassium diet. Chronic msk pain: Patient is already on Flexiril, Neurontin. Continue as needed Percocet. PT following. Other chronic medical conditions include HTN, depression, neuropathy, HLD, CAD: Stable at this time and will continue home medications as indicated. DVT prophylaxis: Heparin Discharge Planning Pending clearance by nephrology and set up with outpatient dialysis. Kaylin Briggs MD R3 Oct 30, 2016 08:53
[2016-10-30] MEDS: SODIUM CHLORIDE 0.9% FLUSH 10 ML FLUSH IV FLUSH SCH ×2 (09:00→22:38)
[2016-10-30] MEDS: hydrALAZINE HCL 100 MG TAB PO SCH ×3 (09:02→18:09)
[2016-10-30] MEDS: BUMETANIDE 1 MG TAB PO SCH (09:02)
[2016-10-30] MEDS: ASPIRIN EC 81 MG TABEC PO SCH (09:03)
[2016-10-30] MEDS: CHOLECALCIFEROL (VIT D3) 1000 UNIT TAB PO SCH (09:03)
[2016-10-30] MEDS: GABAPENTIN 300 MG CAP PO SCH (09:03)
[2016-10-30] MEDS: CYCLOBENZAPRINE HCL 10 MG TAB PO SCH ×3 (09:03→18:09)
[2016-10-30] MEDS: CARVEDILOL 12.5 MG TAB PO SCH ×2 (09:03→22:38)
[2016-10-30] MEDS: amLODIPine BESYLATE 5 MG TAB PO SCH (09:03)
[2016-10-30 12:00] VITALS: BP 145/80; PULSE 66; RESP 19; TEMP 97.3; O2SAT 98
[2016-10-30 12:49] LABS: BICARBONATE 25.7 MEQ/L (21.0-32.0); POTASSIUM 4.5 MEQ/L (3.5-5.1)
[2016-10-30 16:00] VITALS: BP_SYST 153; BP_SYST 162; BP_DIAS 85; BP_DIAS 90; PULSE 77; RESP 18; TEMP 97.5; O2SAT 97
[2016-10-30 20:00] VITALS: BP 170/86; PULSE 82; PULSE 83; RESP 20; TEMP 98.1; O2SAT 96
[2016-10-30] MEDS: TAMSULOSIN HCL 0.4 MG CAP PO SCH (22:36)
[2016-10-30] MEDS: ATORVASTATIN 80 MG TAB PO SCH (22:36)
[2016-10-30] MEDS: FAMOTIDINE 20 MG TAB PO SCH (22:36)
[2016-10-30] MEDS: MIRTAZAPINE 15 MG TAB PO SCH (22:37)
[2016-10-31] VITALS: BP 147/88; PULSE 73; RESP 20; TEMP 98.7; O2SAT 97
[2016-10-31] MEDS: oxyCODONE/ACETAMINOPHEN 5 MG/325 MG TAB PO PRN (02:41)
[2016-10-31 04:00] VITALS: BP 148/87; PULSE 72; RESP 24; TEMP 96.3; O2SAT 95
[2016-10-31] MEDS: SODIUM BICARBONATE 650 MG TAB PO SCH ×3 (05:23→20:30)
[2016-10-31] MEDS: HEPARIN SODIUM - SQ 10,000 UNITS/ML VIAL SQ SCH ×3 (05:23→20:29)
[2016-10-31 08:00] VITALS: BP 139/92; PULSE 68; RESP 17; TEMP 96.6; O2SAT 94
[2016-10-31 08:24] LABS: AUTOMATED NEUTROPHIL # 4.6 TH/MM3 (1.8-7.7); BASOPHIL # 0.1 TH/MM3 (0-0.2); BASOPHIL % 0.6 % (0.0-2.0); EOSINOPHIL # 0.6 TH/MM3 (0-0.4); EOSINOPHIL % 6.5 % (0.0-4.0); HEMATOCRIT 26.3 % (39.0-51.0); HEMO FLAGS DIFF FINAL; LYMPH % 34.7 % (9.0-44.0); LYMPHOCYTE # 3.1 TH/MM3 (1.0-4.8); MEAN CELL VOLUME 97.7 FL (80.0-100.0); MEAN CORPUSCULAR HGB CONC 33.8 % (32.0-36.0); MONO % 7.3 % (0.0-8.0); NEUT % 50.9 % (16.0-70.0); PLATELET COUNT 240 TH/MM3 (150-450)
[2016-10-31 08:36] LABS: BICARBONATE 25.3 MEQ/L (21.0-32.0); POTASSIUM 4.6 MEQ/L (3.5-5.1)
[2016-10-31] MEDS: CHOLECALCIFEROL (VIT D3) 1000 UNIT TAB PO SCH (08:47)
[2016-10-31] MEDS: hydrALAZINE HCL 100 MG TAB PO SCH ×3 (08:47→17:24)
[2016-10-31] MEDS: GABAPENTIN 300 MG CAP PO SCH (08:47)
[2016-10-31] MEDS: CARVEDILOL 12.5 MG TAB PO SCH ×2 (08:47→20:30)
[2016-10-31] MEDS: ASPIRIN EC 81 MG TABEC PO SCH (08:47)
[2016-10-31] MEDS: amLODIPine BESYLATE 5 MG TAB PO SCH (08:47)
[2016-10-31] MEDS: CYCLOBENZAPRINE HCL 10 MG TAB PO SCH ×3 (08:47→17:24)
[2016-10-31] MEDS: BUMETANIDE 1 MG TAB PO SCH (08:48)
[2016-10-31] MEDS: SODIUM CHLORIDE 0.9% FLUSH 10 ML FLUSH IV FLUSH SCH ×2 (08:48→20:30)
--- NOTE | 2016-10-31 09:26 | HHI.PR ---
Subjective Remarks No acute events overnight. Afebrile, vital signs stable. Patient complains of feeling a bit "out of it." In discussing this with the nurse, she states it seems to correlate with when he takes his Percocet. The patient is continuing to have pain worse in his low back which is chronic. He has scheduled Flexeril which he states helps. He would like to try a nonnarcotic pain medication. Objective Vitals Vital Signs Date Time Temp Pulse Resp B/P (MAP) Pulse Ox O2 Delivery O2 Flow Rate FiO2 10/31/16 08:00 96.6 68 17 139/92 (108) 94 10/31/16 04:00 96.3 72 24 148/87 (107) 95 10/31/16 00:00 98.7 73 20 147/88 (107) 97 10/30/16 20:00 98.1 82 20 170/86 (114) 96 10/30/16 20:00 83 10/30/16 19:00 97 Room Air 10/30/16 16:00 97.5 77 18 162/90 (114) 97 153/85 (107) 10/30/16 12:00 97.3 66 19 145/80 (101) 98 I/O 10/30/16 10/30/16 10/30/16 10/31/16 10/31/16 10/31/16 06:59 14:59 22:59 06:59 14:59 22:59 Intake Total 450 ml 480 ml 500 ml Output Total 925 ml 700 ml Balance 450 ml -445 ml -200 ml Intake Oral 450 ml 480 ml 500 ml Output Urine Total 925 ml 700 ml # Voids 1 # Bowel Movements 0 Result Diagram: 10/31/16 0715 10/31/16 0715 Objective Remarks GENERAL: This is a well-nourished, well-developed patient, in no apparent distress. CARDIOVASCULAR: Normal rate and regular rhythm. 2/6 TAMARA murmur RESPIRATORY: Good respiratory efforts. Breath sounds equal and clear to auscultation bilaterally. GASTROINTESTINAL: Abdomen soft, non-tender, non-distended. Normal active bowel sounds MUSCULOSKELETAL: Trace bilateral lower extremity edema. Patient reports his thigh feels swollen and tight. NEURO: Alert & Oriented x4 to person, place, time, situation. Moves all ext x4 PSYCH: Appropriate mood and affect. A/P Assessment and Plan 56-year-old male with a past medical history of HTN, CAD, COPD, CKD who presented with weakness, dizziness, nausea, likely secondary to uremia from worsening renal failure CKD stage V, probably progressing to end-stage: Creatinine has been steadily trending up for the past year, it appears that he will require dialysis during this admission. Creatinine and GFR stable today. Serum creatinine stable. GFR 13>>14>.14>>14>13>14>15>15. Lasix has been on hold. Creatinine 5.71>>5.4>> 5.37>>5.37>>5.33>>5.73>>5.16>>5.02>>4.88 - Appreciate nephrology following. Plan to initiate dialysis. Patient has been on Plavix. Permacath to be placed by IR early next week, likely to stay. - Continue to monitor renal functions. Avoid nephrotoxins. - Once dialysis is started, He will need outpatient dialysis set up and a source of funding as he has no insurance. Discussed with case management. Hyperkalemia from renal failure: See above. Status post Kayexalate. 5.2>>5.0> 5.0>>5.2>>4.6>>4.5>>4.6. Avoid medication that can increase potassium. Follow- up BMP. - Low potassium diet. Chronic msk pain: Patient is already on Flexiril, Neurontin. Change Percocet to tramadol. PT following. Other chronic medical conditions include HTN, depression, neuropathy, HLD, CAD: Stable at this time and will continue home medications as indicated. DVT prophylaxis: Heparin Discharge Planning Pending clearance by nephrology and set up with outpatient dialysis. Kaylin Briggs MD R3 Oct 31, 2016 09:26
[2016-10-31] MEDS: traMADol HCL 50 MG TAB PO PRN ×2 (09:59→20:30)
[2016-10-31 12:00] VITALS: BP 175/89; PULSE 76; RESP 18; TEMP 98.2; O2SAT 98
--- NOTE | 2016-10-31 15:03 | HHI.NPPN ---
Subjective History of Present Illness The patient is a 56 yo AA male who is known to our services for CKD, HTN, proteinuria, and anemia. He has unfortunately had progressive renal decline over the past several months and presented to the ED on 10/21 by the urge of his PCP, Dr. Quintero, as it was noted on outpatient labs that he was in renal failure. Reports feeling fatigued, worsening swelling, and increased SOB since his discharge from here in August for PNA. At that admission, his Lasix was increased from 20mg MWF to 40mg BID (however states he is not always compliant with taking BID). He has not been on Losartan nor KCl since Sandra admission. BP medications include Coreg 12.5mg BID, Hydralazine 100mg q8h, and Amlodipine 10mg QD. Says AM pressure are typically very high in the 190-200mmHg range, but improve to 140mmHg systolically in the afternoons. Denies any recent illness, no abx since August, no contrast exposure. Some nausea and decrease in appetite. Loose stools after abx in August, but no diarrhea nor vomiting. 10/21 SCr outpatient 5.69 eGFR 13 Admitting SCr 5.99 with eGFR 12 SCr at consult 5.81 eGFR 12 Interval History The patient had no verbal complaints. Review of Systems General Constitutional: Fatigue Objective Data Data Vital Signs Date Time Temp Pulse Resp B/P (MAP) Pulse Ox O2 Delivery O2 Flow Rate FiO2 10/31/16 12:00 98.2 76 18 175/89 (117) 98 10/31/16 08:00 96.6 68 17 139/92 (108) 94 10/31/16 04:00 96.3 72 24 148/87 (107) 95 10/31/16 00:00 98.7 73 20 147/88 (107) 97 10/30/16 20:00 98.1 82 20 170/86 (114) 96 10/30/16 20:00 83 10/30/16 19:00 97 Room Air 10/30/16 16:00 97.5 77 18 162/90 (114) 97 153/85 (107) -: 10/31/16 0715 10/31/16 0715 Physical Exam General Appearance: Well Developed, Well Nourished, No Acute Distress, Comfortable Pulmonary Resp Exam: Clear Bilaterally, Breath Sounds Equal, No Distress Cardiology CV Exam: Regular, Normal Sinus Rhythm, Good Perfusion, Murmur Gastrointestinal/Abdomen GI Exam: Soft, Non-Tender Integumentary Skin Exam: Clear, Warm, Normal Turgor Extremeties Extremities Exam: Moderate Edema (improved, but 1+ in bilat thighs & hips) Neurologic Neuro Exam: Alert, Awake, Oriented, Speech Clear, Moving All Extremities Psychiatric Psych Exam: Appropriate Responses Assessment/Plan Problem List: (1) CKD (chronic kidney disease) stage 5, GFR less than 15 ml/min ICD Codes: N18.5 - Chronic kidney disease, stage 5 Plan: The patient's GFR has improved to 15. Last 2 days. Volume retention has improved and there is no evidence of significant metabolic acidosis or hyperkalemia currently. Patient also does not have significant uremic symptoms. Repeat renal function panel tomorrow. As discussed with the patient however he presently does not meet criteria to initiate dialysis. Also if we initiate dialysis at this point in time Medicare may be denied given lack of criteria as indicated above. If the patient remains with current clinical status is far as renal function is concerned would recommend discharging the patient with outpatient follow-up. He will undoubtedly require dialysis in the not too distant future but certain criteria have to be met as discussed with him. Case management will have to be involved regarding insurance issues. Until he has an outpatient payor source (i.e. Medicaid/Medicare) he will be hospitalized to receive dialysis until this can be arranged. Advised that he may be here for upwards of 90 days and he is in verbal understanding of this. 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 Last Edited By: Nita Marie on Oct 23, 2016 17:07 (2) Hyperkalemia ICD Codes: E87.5 - Hyperkalemia Status: Acute Plan: Resolved. Continue to hold ACEi and ARBs (3) Metabolic acidosis ICD Codes: E87.2 - Acidosis Status: Acute Plan: Likely related to CKD. Improved with increase of po bicarb (4) Hypertension ICD Codes: I10 - Essential (primary) hypertension Status: Chronic Plan: Continue on current regimen. (5) Prostate enlargement ICD Codes: N40.0 - Benign prostatic hyperplasia without lower urinary tract symptoms Status: Acute (6) CAD (coronary artery disease) ICD Codes: I25.10 - Atherosclerotic heart disease of [place] coronary artery without angina pectoris Status: Acute (7) Vitamin D deficiency ICD Codes: E55.9 - Vitamin D deficiency, unspecified Status: Acute (8) Anemia ICD Codes: D64.9 - Anemia, unspecified Status: Acute Plan: Likely of renal disease Plan The exam, history, and the medical decision-making described in the above note were completed with the assistance of the FINN. I reviewed and agree with the findings presented. Radha Marie MD Oct 31, 2016 15:03
[2016-10-31 20:00] VITALS: BP 162/93; PULSE 82; RESP 22; TEMP 98.4; O2SAT 96
[2016-10-31] MEDS: FAMOTIDINE 20 MG TAB PO SCH (20:30)
[2016-10-31] MEDS: ATORVASTATIN 80 MG TAB PO SCH (20:30)
[2016-10-31] MEDS: MIRTAZAPINE 15 MG TAB PO SCH (20:30)
[2016-10-31] MEDS: TAMSULOSIN HCL 0.4 MG CAP PO SCH (20:30)
[2016-11-01] VITALS (8 sets, daily range): BP systolic 131–162; BP diastolic 74–89; PULSE 72–94; RESP 17–20; TEMP 96.6–98.8; O2SAT 94–97
[2016-11-01] MEDS: traMADol HCL 50 MG TAB PO PRN ×3 (04:40→21:16)
[2016-11-01 05:08] LABS: AUTOMATED NEUTROPHIL # 6.1 TH/MM3 (1.8-7.7); BASOPHIL # 0.1 TH/MM3 (0-0.2); BASOPHIL % 0.5 % (0.0-2.0); EOSINOPHIL # 0.5 TH/MM3 (0-0.4); EOSINOPHIL % 4.8 % (0.0-4.0); HEMATOCRIT 27.5 % (39.0-51.0); HEMO FLAGS DIFF FINAL; LYMPH % 28.3 % (9.0-44.0); LYMPHOCYTE # 2.8 TH/MM3 (1.0-4.8); MEAN CELL VOLUME 98.2 FL (80.0-100.0); MEAN CORPUSCULAR HEMOGLOBIN 32.8 PG (27.0-34.0); MEAN CORPUSCULAR HGB CONC 33.4 % (32.0-36.0); MONO % 5.4 % (0.0-8.0); PLATELET COUNT 262 TH/MM3 (150-450); RED CELL DISTRIBUTION WIDTH 14.3 % (11.6-17.2)
[2016-11-01 05:27] LABS: BICARBONATE 24.8 MEQ/L (21.0-32.0); POTASSIUM 5.3 MEQ/L (3.5-5.1)
[2016-11-01] MEDS: SODIUM BICARBONATE 650 MG TAB PO SCH ×3 (06:44→21:16)
[2016-11-01] MEDS: HEPARIN SODIUM - SQ 10,000 UNITS/ML VIAL SQ SCH ×3 (06:45→21:17)
[2016-11-01] MEDS ORDERED: EPOETIN ALFA 10,000 UNITS/ML VIAL SQ ONE (08:00)
[2016-11-01] MEDS: CHOLECALCIFEROL (VIT D3) 1000 UNIT TAB PO SCH (09:30)
[2016-11-01] MEDS: CYCLOBENZAPRINE HCL 10 MG TAB PO SCH ×3 (09:30→18:04)
[2016-11-01] MEDS: amLODIPine BESYLATE 5 MG TAB PO SCH (09:30)
[2016-11-01] MEDS: ASPIRIN EC 81 MG TABEC PO SCH (09:30)
[2016-11-01] MEDS: BUMETANIDE 1 MG TAB PO SCH (09:31)
[2016-11-01] MEDS: hydrALAZINE HCL 100 MG TAB PO SCH ×3 (09:31→18:04)
[2016-11-01] MEDS: SODIUM CHLORIDE 0.9% FLUSH 10 ML FLUSH IV FLUSH SCH ×2 (09:31→21:25)
[2016-11-01] MEDS: CARVEDILOL 12.5 MG TAB PO SCH ×2 (09:31→21:16)
[2016-11-01] MEDS: GABAPENTIN 300 MG CAP PO SCH (09:31)
--- NOTE | 2016-11-01 13:47 | HHI.PR ---
Subjective Remarks Follow-up acute on chronic kidney disease stage V/labile hypertension 11/01/16-patient seen and examined, renal indices improving, still with decrease UOP Objective Vitals Vital Signs Date Time Temp Pulse Resp B/P (MAP) Pulse Ox O2 Delivery O2 Flow Rate FiO2 11/01/16 12:00 98.5 72 19 155/78 (103) 97 11/01/16 08:00 97.4 78 17 162/89 (113) 94 11/01/16 04:00 97.7 81 20 158/86 (110) 96 11/01/16 01:41 92 11/01/16 00:51 Room Air 11/01/16 00:00 98.8 85 20 160/84 (109) 94 10/31/16 20:00 98.4 82 22 162/93 (116) 96 I/O 10/31/16 10/31/16 10/31/16 11/01/16 11/01/16 11/01/16 06:59 14:59 22:59 06:59 14:59 22:59 Intake Total 500 ml 480 ml 480 ml Output Total 700 ml 625 ml Balance -200 ml -145 ml 480 ml Intake Oral 500 ml 480 ml 480 ml Output Urine Total 700 ml 625 ml # Voids 4 # Bowel Movements 0 1 Result Diagram: 11/01/16 0320 11/01/16 0320 Imaging Last Impressions Renal Ultrasound 10/22/16 0000 Signed Impressions: Service Date/Time: Saturday, October 22, 2016 13:15 - CONCLUSION: 1. No evidence for obstructive uropathy. 2. Redemonstration of increased renal cortical echogenicity consistent with medical renal disease. Elan Mcclendon MD Abdomen/Pelvis CT 10/22/16 0000 Signed Impressions: Service Date/Time: Saturday, October 22, 2016 19:55 - CONCLUSION: 1. Small free fluid in Morison's pouch and in the pelvic cavity of unclear etiology. Nothing organized or drainable. 2. No renal stones or evidence of obstructive uropathy. 3. Trace pleural fluid of each visualized lung base. Troy Dean MD Chest X-Ray 10/21/16 1914 Signed Impressions: Service Date/Time: September 19:28 - CONCLUSION: Underinflation with mild atelectasis at the lung bases. Otherwise, no acute finding is identified. Troy Cruz MD Objective Remarks GENERAL: NAD SKIN: Warm and dry. HEAD: Normocephalic. EYES: No scleral icterus. No injection or drainage. NECK: Supple, trachea midline. No JVD or lymphadenopathy. CARDIOVASCULAR: Regular rate and rhythm without murmurs, gallops, or rubs. RESPIRATORY: Breath sounds equal bilaterally. No accessory muscle use. GASTROINTESTINAL: Abdomen soft, non-tender, nondistended. MUSCULOSKELETAL: No cyanosis, or edema. BACK: Nontender without obvious deformity. No CVA tenderness. 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 Last Edited By: Nita Marie on Oct 23, 2016 17:07 Assessment and Plan 56-year-old man with CKD stage V, Renal indices improving however patient will follow decrease UOP Management per nephrology Patient may need dialysis Hyperkalemia from renal failure: See above. Resolved Status post Kayexalate. Chronic msk pain: Patient is already on Flexiril, Neurontin, tramadol. PT ff Hypertension Labile BP. Coreg 25 mg twice a day, hydralazine 100 mg every 8 hours, Norvasc 10 mg daily, Bumex Other chronic medical conditions include depression, neuropathy, HLD, CAD: Stable at this time and will continue home medications as indicated. DVT prophylaxis: Paul De La Fuente MD Nov 01, 2016 13:47
[2016-11-01] MEDS: MIRTAZAPINE 15 MG TAB PO SCH (21:16)
[2016-11-01] MEDS: ATORVASTATIN 80 MG TAB PO SCH (21:16)
[2016-11-01] MEDS: FAMOTIDINE 20 MG TAB PO SCH (21:16)
[2016-11-01] MEDS: TAMSULOSIN HCL 0.4 MG CAP PO SCH (21:16)
[2016-11-02] VITALS (7 sets, daily range): BP systolic 130–174; BP diastolic 73–89; PULSE 68–78; RESP 17–20; TEMP 97.6–98.6; O2SAT 94–98
[2016-11-02] MEDS: HEPARIN SODIUM - SQ 10,000 UNITS/ML VIAL SQ SCH ×3 (05:12→20:32)
[2016-11-02] MEDS: SODIUM BICARBONATE 650 MG TAB PO SCH ×3 (05:12→20:29)
[2016-11-02] MEDS: traMADol HCL 50 MG TAB PO PRN ×3 (05:13→23:30)
[2016-11-02 07:01] LABS: BICARBONATE 25.7 MEQ/L (21.0-32.0); POTASSIUM 5.3 MEQ/L (3.5-5.1)
[2016-11-02] MEDS: CHOLECALCIFEROL (VIT D3) 1000 UNIT TAB PO SCH (08:27)
[2016-11-02] MEDS: SODIUM CHLORIDE 0.9% FLUSH 10 ML FLUSH IV FLUSH SCH ×2 (08:27→20:34)
[2016-11-02] MEDS: BUMETANIDE 1 MG TAB PO SCH (08:27)
[2016-11-02] MEDS: amLODIPine BESYLATE 5 MG TAB PO SCH (08:27)
[2016-11-02] MEDS: CARVEDILOL 12.5 MG TAB PO SCH ×2 (08:27→20:30)
[2016-11-02] MEDS: GABAPENTIN 300 MG CAP PO SCH (08:27)
[2016-11-02] MEDS: ASPIRIN EC 81 MG TABEC PO SCH (08:27)
[2016-11-02] MEDS: hydrALAZINE HCL 100 MG TAB PO SCH ×3 (08:27→17:57)
[2016-11-02] MEDS: CYCLOBENZAPRINE HCL 10 MG TAB PO SCH ×3 (09:33→17:57)
--- NOTE | 2016-11-02 10:48 | HHI.NPPN ---
Subjective History of Present Illness The patient is a 56 yo AA male who is known to our services for CKD, HTN, proteinuria, and anemia. He has unfortunately had progressive renal decline over the past several months and presented to the ED on 10/21 by the urge of his PCP, Dr. Quintero, as it was noted on outpatient labs that he was in renal failure. Reports feeling fatigued, worsening swelling, and increased SOB since his discharge from here in August for PNA. At that admission, his Lasix was increased from 20mg MWF to 40mg BID (however states he is not always compliant with taking BID). He has not been on Losartan nor KCl since August admission. BP medications include Coreg 12.5mg BID, Hydralazine 100mg q8h, and Amlodipine 10mg QD. Says AM pressure are typically very high in the 190-200mmHg range, but improve to 140mmHg systolically in the afternoons. Denies any recent illness, no abx since August, no contrast exposure. Some nausea and decrease in appetite. Loose stools after abx in August, but no diarrhea nor vomiting. 10/21 SCr outpatient 5.69 eGFR 13 Admitting SCr 5.99 with eGFR 12 SCr at consult 5.81 eGFR 12 Interval History States he is still having feeling of urinary retention. Otherwise, says he is feeling OK (Kelley Lora) Review of Systems General Constitutional: Fatigue (Kelley Lora) Genitourinary Remarks Hesitancy (Kelley Lora) Objective Data Data Vital Signs Date Time Temp Pulse Resp B/P (MAP) Pulse Ox O2 Delivery O2 Flow Rate FiO2 11/02/16 08:00 97.8 74 18 161/84 (109) 96 11/02/16 04:00 98.0 68 18 140/81 (100) 96 11/02/16 00:00 98.6 78 20 157/77 (103) 94 11/01/16 20:00 98.2 76 18 156/84 (108) 97 11/01/16 19:58 94 11/01/16 16:00 96.6 74 17 131/74 (93) 95 11/01/16 12:00 98.5 72 19 155/78 (103) 97 (Kelley Lora) -: 11/01/16 0320 11/02/16 0505 Imaging Last Impressions Renal Ultrasound 10/22/16 0000 Signed Impressions: Service Date/Time: Saturday, October 22, 2016 13:15 - CONCLUSION: 1. No evidence for obstructive uropathy. 2. Redemonstration of increased renal cortical echogenicity consistent with medical renal disease. Elan Mcclendon MD Abdomen/Pelvis CT 10/22/16 0000 Signed Impressions: Service Date/Time: Saturday, October 22, 2016 19:55 - CONCLUSION: 1. Small free fluid in Morison's pouch and in the pelvic cavity of unclear etiology. Nothing organized or drainable. 2. No renal stones or evidence of obstructive uropathy. 3. Trace pleural fluid of each visualized lung base. Troy Dean MD Chest X-Ray 10/21/16 1914 Signed Impressions: Service Date/Time: September 19:28 - CONCLUSION: Underinflation with mild atelectasis at the lung bases. Otherwise, no acute finding is identified. Troy Cruz MD Medication Review Current Medications Medications (Trade) Dose Ordered Sig/Ramakrishna Route Start Time Stop Time Status Last Admin (NS Flush) 2 ml UNSCH PRN IV FLUSH 10/21/16 21:45 (NS Flush) 2 ml BID IV FLUSH 10/22/16 09:00 11/02/16 08:27 (Narcan Inj) 0.4 mg UNSCH PRN IV 10/21/16 21:45 (Ecotrin Ec) 81 mg DAILY PO 10/22/16 09:00 11/02/16 08:27 (Lipitor) 80 mg HS PO 10/22/16 21:00 11/01/16 21:16 (Coreg) 25 mg BID PO 10/22/16 09:00 11/02/16 08:27 (Flexeril) 10 mg TID PO 10/22/16 09:00 11/02/16 09:33 (Apresoline) 100 mg TID PO 10/22/16 09:00 11/02/16 08:27 (Remeron) 15 mg HS PO 10/22/16 21:00 11/01/16 21:16 (Flomax) 0.4 mg HS PO 10/22/16 21:00 11/01/16 21:16 (Heparin Inj) 5,000 units Q8HR SQ 10/22/16 14:00 11/02/16 05:12 (Neurontin) 300 mg DAILY PO 10/23/16 09:00 11/02/16 08:27 (Sodium Bicarbonate) 1,300 mg Q8HR PO 10/26/16 14:00 11/02/16 05:12 (Pepcid) 20 mg HS PO 10/26/16 21:00 11/01/16 21:16 (Bumetanide) 2 mg DAILY PO 10/28/16 09:00 11/02/16 08:27 (Milk Of Nathan Liq) 30 ml Q12H PRN PO 10/28/16 10:30 10/28/16 11:17 (Vitamin D3) 2,000 units DAILY PO 10/29/16 12:00 11/02/16 08:27 (Ultram) 50 mg Q8H PRN PO 10/31/16 10:00 11/02/16 05:13 (Norvasc) 10 mg DAILY PO 11/01/16 09:00 11/02/16 08:27 (Kelley Lora) Physical Exam General Appearance: Well Developed, Well Nourished, No Acute Distress, Comfortable (Kelley Lora) Pulmonary Resp Exam: Clear Bilaterally, Breath Sounds Equal, No Distress (Kelley Lora) Cardiology CV Exam: Regular, Normal Sinus Rhythm, Good Perfusion, Murmur (Kelley Lora) Gastrointestinal/Abdomen GI Exam: Soft, Non-Tender (Kelley Lora) Integumentary Skin Exam: Clear, Warm, Normal Turgor (Kelley Lora) Extremeties Extremities Exam: Trace Edema (trace in bilat hips) (Kelley Lora) Neurologic Neuro Exam: Alert, Awake, Oriented, Speech Clear, Moving All Extremities (Kelley Lora) Psychiatric Psych Exam: Appropriate Responses (Kelley Lora) Assessment/Plan Problem List: (1) CKD (chronic kidney disease) stage 5, GFR less than 15 ml/min ICD Codes: N18.5 - Chronic kidney disease, stage 5 Plan: The patient's GFR has improved to 15 and is stable. He has mild hyperkalemia today that will be treated with Kionex 15g x1. Will also start low dose HCTZ to see if this will also help with better BP control and mild hyperkalemia. I had the patient sign form to try to get on [employer] drug assistance program to hopefully buy us some time regarding initiation of dialysis. If acid/base status stable, fluid controlled on Bumex, and eGFR remains at 15 or higher, there is no indication to initiate dialysis at this admission. We will repeat BMP in the AM and if all stable, we will have him follow up as outpatient within 1 week. If dialysis can be avoided this admission, he does understand that he will require dialysis in the very near future. He has again been advised to follow up with office as outpatient regarding Medicaid or other health insurance. Case management will have to be involved regarding insurance issues. If dialysis has to be started this admission, until he has an outpatient payor source (i.e. Medicaid/Medicare) he will be hospitalized to receive dialysis until this can be arranged. Advised that he may be here for upwards of 90 days and he is in verbal understanding of this. 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 Last Edited By: Nita Marie on Oct 23, 2016 17:07 (2) Hyperkalemia ICD Codes: E87.5 - Hyperkalemia Status: Acute Plan: Kionex x1 today Start HCTZ 12.5mg QD. K+ restrictive diet. Continue to hold ACEi and ARBs (3) Metabolic acidosis ICD Codes: E87.2 - Acidosis Status: Acute Plan: Likely related to CKD. Improved with increase of po bicarb (4) Hypertension ICD Codes: I10 - Essential (primary) hypertension Status: Chronic Plan: Continue on current regimen. (5) Prostate enlargement ICD Codes: N40.0 - Benign prostatic hyperplasia without lower urinary tract symptoms Status: Acute Plan: The symptoms the patient is describing sounds to be related to prostatic enlargement. Will have RN do bladder scan after urination to assess for any significant PVR. Consider increasing Flomax to 0.8mg. Advised the patient that retention sensation is a prostatic issue and not a kidney issue. (6) CAD (coronary artery disease) ICD Codes: I25.10 - Atherosclerotic heart disease of [place] coronary artery without angina pectoris Status: Acute (7) Vitamin D deficiency ICD Codes: E55.9 - Vitamin D deficiency, unspecified Status: Acute (8) Anemia ICD Codes: D64.9 - Anemia, unspecified Status: Acute Plan: Likely of renal disease (Kelley Lora) Plan The exam, history, and the medical decision-making described in the above note were completed with the assistance of the PACharlee. I reviewed and agree with the findings presented. (Radha Marie MD) Kelley Lora Nov 02, 2016 10:48 Radha Marie MD Nov 03, 2016 16:00
[2016-11-02] MEDS: HYDROCHLOROTHIAZIDE 12.5 MG CAP PO SCH (12:29)
[2016-11-02] MEDS ORDERED: SODIUM POLYSTYRENE SULFONATE SUSP 15 GM/60 ML CUP PO ONE (12:30)
--- NOTE | 2016-11-02 14:26 | HHI.PR ---
Subjective Remarks Follow-up acute on chronic kidney disease stage V/labile hypertension 11/01/16-patient seen and examined, renal indices improving, still with decrease UOP 11/02/16-patient seen and examined, complains of urinary retention. Reports history of BPH. Objective Vitals Vital Signs Date Time Temp Pulse Resp B/P (MAP) Pulse Ox O2 Delivery O2 Flow Rate FiO2 11/02/16 12:00 97.8 77 17 130/73 (92) 98 11/02/16 08:00 97.8 74 18 161/84 (109) 96 11/02/16 04:00 98.0 68 18 140/81 (100) 96 11/02/16 00:00 98.6 78 20 157/77 (103) 94 11/01/16 20:00 98.2 76 18 156/84 (108) 97 11/01/16 19:58 94 11/01/16 16:00 96.6 74 17 131/74 (93) 95 I/O 11/01/16 11/01/16 11/01/16 11/02/16 11/02/16 11/02/16 06:59 14:59 22:59 06:59 14:59 22:59 Intake Total 480 ml 480 ml 240 ml Output Total 700 ml 450 ml Balance 480 ml -220 ml -210 ml Intake Oral 480 ml 480 ml 240 ml Output Urine Total 700 ml 450 ml # Voids 4 # Bowel Movements 1 0 1 Result Diagram: 11/01/16 0320 11/02/16 0505 Objective Remarks GENERAL: NAD SKIN: Warm and dry. HEAD: Normocephalic. EYES: No scleral icterus. No injection or drainage. NECK: Supple, trachea midline. No JVD or lymphadenopathy. CARDIOVASCULAR: Regular rate and rhythm without murmurs, gallops, or rubs. RESPIRATORY: Breath sounds equal bilaterally. No accessory muscle use. GASTROINTESTINAL: Abdomen soft, non-tender, nondistended. MUSCULOSKELETAL: No cyanosis, or edema. BACK: Nontender without obvious deformity. No CVA tenderness. 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 Last Edited By: Nita Marie on Oct 23, 2016 17:07 Assessment and Plan 56-year-old man with CKD stage V, Monitor renal indices Management per nephrology Patient may need dialysis Hyperkalemia from renal failure: See above. Resolved Status post Kayexalate. Chronic msk pain: Patient is already on Flexiril, Neurontin, tramadol. PT ff BPH Increase Flomax to 0.4 twice a day Hypertension Labile BP. Coreg 25 mg twice a day, hydralazine 100 mg every 8 hours, Norvasc 10 mg daily, Bumex Other chronic medical conditions include depression, neuropathy, HLD, CAD: Stable at this time and will continue home medications as indicated. DVT prophylaxis: Heparin Paul Bernabe MD Nov 02, 2016 14:26
[2016-11-02] MEDS ORDERED: MORPHINE SULFATE 4 MG/ML INJ IV ONE (20:15)
[2016-11-02] MEDS: TAMSULOSIN HCL 0.4 MG CAP PO SCH (20:30)
[2016-11-02] MEDS: FAMOTIDINE 20 MG TAB PO SCH (20:30)
[2016-11-02] MEDS: ATORVASTATIN 80 MG TAB PO SCH (20:30)
[2016-11-02] MEDS: MIRTAZAPINE 15 MG TAB PO SCH (20:30)
[2016-11-03] VITALS: BP 153/78; PULSE 71; RESP 18; TEMP 98.7; O2SAT 96
[2016-11-03 04:00] VITALS: BP 137/81; PULSE 81; RESP 18; TEMP 98.5; O2SAT 93
[2016-11-03] MEDS: HEPARIN SODIUM - SQ 10,000 UNITS/ML VIAL SQ SCH ×3 (05:15→21:36)
[2016-11-03] MEDS: SODIUM BICARBONATE 650 MG TAB PO SCH ×3 (05:15→21:36)
[2016-11-03] MEDS: MORPHINE SULFATE 4 MG/ML INJ IV PUSH PRN ×3 (05:22→21:35)
[2016-11-03 07:28] LABS: BICARBONATE 26.3 MEQ/L (21.0-32.0)
[2016-11-03 08:00] VITALS: BP 135/81; PULSE 84; RESP 18; TEMP 97.6; O2SAT 97
[2016-11-03] MEDS: GABAPENTIN 300 MG CAP PO SCH (08:54)
[2016-11-03] MEDS: amLODIPine BESYLATE 5 MG TAB PO SCH (08:54)
[2016-11-03] MEDS: CYCLOBENZAPRINE HCL 10 MG TAB PO SCH ×3 (08:54→17:27)
[2016-11-03] MEDS: traMADol HCL 50 MG TAB PO PRN ×2 (08:54→17:28)
[2016-11-03] MEDS: hydrALAZINE HCL 100 MG TAB PO SCH ×3 (08:54→17:27)
[2016-11-03] MEDS: CHOLECALCIFEROL (VIT D3) 1000 UNIT TAB PO SCH (08:55)
[2016-11-03] MEDS: CARVEDILOL 12.5 MG TAB PO SCH ×2 (08:55→21:36)
[2016-11-03] MEDS: ASPIRIN EC 81 MG TABEC PO SCH (08:55)
[2016-11-03] MEDS: HYDROCHLOROTHIAZIDE 12.5 MG CAP PO SCH (08:55)
[2016-11-03] MEDS: BUMETANIDE 1 MG TAB PO SCH (08:57)
[2016-11-03] MEDS: SODIUM CHLORIDE 0.9% FLUSH 10 ML FLUSH IV FLUSH SCH ×2 (08:58→21:00)
[2016-11-03 12:00] VITALS: BP 124/80; PULSE 80; RESP 15; TEMP 98.2; O2SAT 97
--- NOTE | 2016-11-03 12:42 | HHI.PR ---
Subjective Remarks Follow-up acute on chronic kidney disease stage V/labile hypertension 11/01/16-patient seen and examined, renal indices improving, still with decrease UOP 11/02/16-patient seen and examined, complains of urinary retention. Reports history of BPH. 11/03/16-patient seen and examined, BP improving and patient reports improvement of symptoms of urinary retention. Objective Vitals Vital Signs Date Time Temp Pulse Resp B/P (MAP) Pulse Ox O2 Delivery O2 Flow Rate FiO2 11/03/16 08:00 97.6 84 18 135/81 (99) 97 11/03/16 04:00 98.5 81 18 137/81 (99) 93 11/03/16 00:00 98.7 71 18 153/78 (103) 96 11/02/16 20:00 97.6 71 18 174/89 (117) 97 11/02/16 19:50 77 11/02/16 16:00 98.0 77 18 135/85 (102) 97 I/O 11/02/16 11/02/16 11/02/16 11/03/16 11/03/16 11/03/16 06:59 14:59 22:59 06:59 14:59 22:59 Intake Total 240 ml 800 ml 480 ml Output Total 450 ml 800 ml 600 ml Balance -210 ml 0 ml -120 ml Intake Oral 240 ml 800 ml 480 ml Output Urine Total 450 ml 800 ml 600 ml # Voids 3 # Bowel Movements 1 1 Result Diagram: 11/01/16 0320 11/03/16 0619 Objective Remarks GENERAL: NAD SKIN: Warm and dry. HEAD: Normocephalic. EYES: No scleral icterus. No injection or drainage. NECK: Supple, trachea midline. No JVD or lymphadenopathy. CARDIOVASCULAR: Regular rate and rhythm without murmurs, gallops, or rubs. RESPIRATORY: Breath sounds equal bilaterally. No accessory muscle use. GASTROINTESTINAL: Abdomen soft, non-tender, nondistended. MUSCULOSKELETAL: No cyanosis, or edema. BACK: Nontender without obvious deformity. No CVA tenderness. 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 Last Edited By: Nita Marie on Oct 23, 2016 17:07 Assessment and Plan 56-year-old man with CKD stage V, renal indices improving Management per nephrology Patient may need dialysis Hyperkalemia from renal failure: See above. Resolved Status post Kayexalate. Chronic msk pain: on Flexiril, Neurontin, tramadol. PT ff BPH Continue Flomax 0.8 twice a day Hypertension Coreg 25 mg twice a day, hydralazine 100 mg every 8 hours, Norvasc 10 mg daily, hydrochlorothiazide 12.5 daily, Bumex Other chronic medical conditions include depression, neuropathy, HLD, CAD: continue home medications as indicated. DVT prophylaxis: Heparin Paul Bernabe MD Nov 03, 2016 12:42
[2016-11-03 16:00] VITALS: BP 121/79; PULSE 84; RESP 16; TEMP 97.9; O2SAT 97
--- NOTE | 2016-11-03 16:05 | HHI.NPPN ---
Subjective History of Present Illness The patient is a 56 yo AA male who is known to our services for CKD, HTN, proteinuria, and anemia. He has unfortunately had progressive renal decline over the past several months and presented to the ED on 10/21 by the urge of his PCP, Dr. Quintero, as it was noted on outpatient labs that he was in renal failure. Reports feeling fatigued, worsening swelling, and increased SOB since his discharge from here in August for PNA. At that admission, his Lasix was increased from 20mg MWF to 40mg BID (however states he is not always compliant with taking BID). He has not been on Losartan nor KCl since Sandra admission. BP medications include Coreg 12.5mg BID, Hydralazine 100mg q8h, and Amlodipine 10mg QD. Says AM pressure are typically very high in the 190-200mmHg range, but improve to 140mmHg systolically in the afternoons. Denies any recent illness, no abx since August, no contrast exposure. Some nausea and decrease in appetite. Loose stools after abx in August, but no diarrhea nor vomiting. 10/21 SCr outpatient 5.69 eGFR 13 Admitting SCr 5.99 with eGFR 12 SCr at consult 5.81 eGFR 12 Interval History Patient had no verbal complaints. Review of Systems General Constitutional: Fatigue Genitourinary Remarks Hesitancy Objective Data Data Vital Signs Date Time Temp Pulse Resp B/P (MAP) Pulse Ox O2 Delivery O2 Flow Rate FiO2 11/03/16 12:00 98.2 80 15 124/80 (95) 97 11/03/16 08:00 97.6 84 18 135/81 (99) 97 11/03/16 04:00 98.5 81 18 137/81 (99) 93 11/03/16 00:00 98.7 71 18 153/78 (103) 96 11/02/16 20:00 97.6 71 18 174/89 (117) 97 11/02/16 19:50 77 -: 11/01/16 0320 11/03/16 0619 Physical Exam General Appearance: Well Developed, Well Nourished, No Acute Distress, Comfortable Pulmonary Resp Exam: Clear Bilaterally, Breath Sounds Equal, No Distress Cardiology CV Exam: Regular, Normal Sinus Rhythm, Good Perfusion, Murmur Gastrointestinal/Abdomen GI Exam: Soft, Non-Tender Integumentary Skin Exam: Clear, Warm, Normal Turgor Extremeties Extremities Exam: Trace Edema (trace in bilat hips) Neurologic Neuro Exam: Alert, Awake, Oriented, Speech Clear, Moving All Extremities Psychiatric Psych Exam: Appropriate Responses Assessment/Plan Problem List: (1) CKD (chronic kidney disease) stage 5, GFR less than 15 ml/min ICD Codes: N18.5 - Chronic kidney disease, stage 5 Plan: The patient's GFR noted to be 16 and potassium level is now within normal range. No indication to initiate dialysis at this time as discussed with the patient. He was advised however that dialysis will become necessary in the near future and that plans need to be made in preparation for same. Patient however is clear for discharge from a renal point of view. 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 Patient was advised and counseled regarding a low potassium diet and necessity for same as well as risks of hyperkalemia including arrhythmia and . Compliance was strongly advised. He has again been advised to follow up with [facility] office as outpatient regarding Medicaid or other health insurance. Case management will have to be involved regarding insurance issues. If dialysis has to be started this admission, until he has an outpatient payor source (i.e. Medicaid/Medicare) he will be hospitalized to receive dialysis until this can be arranged. Advised that he may be here for upwards of 90 days and he is in verbal understanding of this. 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 Last Edited By: Nita Marie on Oct 23, 2016 17:07 (2) Hyperkalemia ICD Codes: E87.5 - Hyperkalemia Status: Acute Plan: Kionex x1 today Start HCTZ 12.5mg QD. K+ restrictive diet. Continue to hold ACEi and ARBs (3) Metabolic acidosis ICD Codes: E87.2 - Acidosis Status: Acute Plan: Likely related to CKD. Improved with increase of po bicarb (4) Hypertension ICD Codes: I10 - Essential (primary) hypertension Status: Chronic Plan: Continue on current regimen. (5) Prostate enlargement ICD Codes: N40.0 - Benign prostatic hyperplasia without lower urinary tract symptoms Status: Acute Plan: The symptoms the patient is describing sounds to be related to prostatic enlargement. Will have RN do bladder scan after urination to assess for any significant PVR. Consider increasing Flomax to 0.8mg. Advised the patient that retention sensation is a prostatic issue and not a kidney issue. (6) CAD (coronary artery disease) ICD Codes: I25.10 - Atherosclerotic heart disease of [place] coronary artery without angina pectoris Status: Acute (7) Vitamin D deficiency ICD Codes: E55.9 - Vitamin D deficiency, unspecified Status: Acute (8) Anemia ICD Codes: D64.9 - Anemia, unspecified Status: Acute Plan: Likely of renal disease Plan The exam, history, and the medical decision-making described in the above note were completed with the assistance of the FIN[employer]. I reviewed and agree with the findings presented. Radha Marie MD Nov 03, 2016 16:05
[2016-11-03 20:00] VITALS: BP 155/85; PULSE 77; PULSE 83; RESP 18; TEMP 97.9; O2SAT 96
[2016-11-03] MEDS: MIRTAZAPINE 15 MG TAB PO SCH (21:36)
[2016-11-03] MEDS: TAMSULOSIN HCL 0.4 MG CAP PO SCH (21:36)
[2016-11-03] MEDS: ATORVASTATIN 80 MG TAB PO SCH (21:36)
[2016-11-03] MEDS: FAMOTIDINE 20 MG TAB PO SCH (21:36)
[2016-11-04] VITALS: BP 135/70; PULSE 78; RESP 18; TEMP 98.6; O2SAT 95
[2016-11-04] MEDS: traMADol HCL 50 MG TAB PO PRN ×2 (01:46→14:21)
[2016-11-04 04:00] VITALS: BP 146/82; PULSE 67; RESP 18; TEMP 98.4; O2SAT 95
[2016-11-04] MEDS: MORPHINE SULFATE 4 MG/ML INJ IV PUSH PRN ×2 (04:41→18:39)
[2016-11-04] MEDS: SODIUM BICARBONATE 650 MG TAB PO SCH ×3 (04:42→21:33)
[2016-11-04] MEDS: HEPARIN SODIUM - SQ 10,000 UNITS/ML VIAL SQ SCH ×3 (04:42→21:35)
[2016-11-04 08:00] VITALS: BP 135/83; PULSE 78; RESP 17; TEMP 98; O2SAT 97
[2016-11-04] MEDS: GABAPENTIN 300 MG CAP PO SCH (09:40)
[2016-11-04] MEDS: BUMETANIDE 1 MG TAB PO SCH (09:40)
[2016-11-04] MEDS: hydrALAZINE HCL 100 MG TAB PO SCH ×3 (09:41→18:39)
[2016-11-04] MEDS: CHOLECALCIFEROL (VIT D3) 1000 UNIT TAB PO SCH (09:41)
[2016-11-04] MEDS: HYDROCHLOROTHIAZIDE 12.5 MG CAP PO SCH (09:41)
[2016-11-04] MEDS: CYCLOBENZAPRINE HCL 10 MG TAB PO SCH ×3 (09:41→18:39)
[2016-11-04] MEDS: CARVEDILOL 12.5 MG TAB PO SCH ×2 (09:41→21:33)
[2016-11-04] MEDS: amLODIPine BESYLATE 5 MG TAB PO SCH (09:42)
[2016-11-04] MEDS: ASPIRIN EC 81 MG TABEC PO SCH (09:42)
[2016-11-04 12:00] VITALS: BP 112/68; PULSE 75; RESP 17; TEMP 98; O2SAT 96
--- NOTE | 2016-11-04 12:09 | HHI.PR ---
Subjective Remarks Follow-up acute on chronic kidney disease stage V/labile hypertension 11/01/16-patient seen and examined, renal indices improving, still with decrease UOP 11/02/16-patient seen and examined, complains of urinary retention. Reports history of BPH. 11/03/16-patient seen and examined, BP improving and patient reports improvement of symptoms of urinary retention. 11/04/16-patient seen and examined, patient is currently stable and states he is bored otherwise no acute event overnight. Objective Vitals Vital Signs Date Time Temp Pulse Resp B/P (MAP) Pulse Ox O2 Delivery O2 Flow Rate FiO2 11/04/16 08:00 98.0 78 17 135/83 (100) 97 11/04/16 04:50 20 11/04/16 04:00 98.4 67 18 146/82 (103) 95 11/04/16 03:00 18 11/04/16 00:00 98.6 78 18 135/70 (91) 95 11/03/16 20:00 83 11/03/16 20:00 97.9 77 18 155/85 (108) 96 11/03/16 16:00 97.9 84 16 121/79 (93) 97 I/O 11/03/16 11/03/16 11/03/16 11/04/16 11/04/16 11/04/16 07:00 15:00 23:00 07:00 15:00 23:00 Intake Total 480 ml 500 ml Output Total 600 ml 700 ml Balance -120 ml -200 ml Intake Oral 480 ml 500 ml Output Urine Total 600 ml 700 ml # Voids 1 # Bowel Movements 1 Result Diagram: 11/01/16 0320 11/03/16 0619 Objective Remarks GENERAL: NAD SKIN: Warm and dry. HEAD: Normocephalic. EYES: No scleral icterus. No injection or drainage. NECK: Supple, trachea midline. No JVD or lymphadenopathy. CARDIOVASCULAR: Regular rate and rhythm without murmurs, gallops, or rubs. RESPIRATORY: Breath sounds equal bilaterally. No accessory muscle use. GASTROINTESTINAL: Abdomen soft, non-tender, nondistended. MUSCULOSKELETAL: No cyanosis, or edema. BACK: Nontender without obvious deformity. No CVA tenderness. 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 Last Edited By: Nita Marie on Oct 23, 2016 17:07 Assessment and Plan 56-year-old man with CKD stage V, renal indices improving Management per nephrology Patient may need dialysis Hyperkalemia from renal failure: See above. Resolved Status post Kayexalate. Chronic msk pain: Continue Flexeril, Neurontin, tramadol. PT ff BPH Continue Flomax 0.8 twice a day Hypertension Currently normotensive Coreg 25 mg twice a day, hydralazine 100 mg every 8 hours, Norvasc 10 mg daily, hydrochlorothiazide 12.5 daily, Bumex Other chronic medical conditions include depression, neuropathy, HLD, CAD: continue home medications as indicated. DVT prophylaxis: Heparin Paul Bernabe MD Nov 04, 2016 12:08
[2016-11-04 20:00] VITALS: BP 124/78; PULSE 86; RESP 18; TEMP 97.7; O2SAT 95
[2016-11-04] MEDS: SODIUM CHLORIDE 0.9% FLUSH 10 ML FLUSH IV FLUSH SCH (21:00)
[2016-11-04] MEDS: ATORVASTATIN 80 MG TAB PO SCH (21:34)
[2016-11-04] MEDS: TAMSULOSIN HCL 0.4 MG CAP PO SCH (21:34)
[2016-11-04] MEDS: MIRTAZAPINE 15 MG TAB PO SCH (21:34)
[2016-11-04] MEDS: FAMOTIDINE 20 MG TAB PO SCH (21:34)
[2016-11-05] VITALS: BP 132/71; PULSE 74; RESP 18; TEMP 98.3; O2SAT 93
[2016-11-05] MEDS: traMADol HCL 50 MG TAB PO PRN ×3 (01:01→17:19)
[2016-11-05] MEDS: MORPHINE SULFATE 4 MG/ML INJ IV PUSH PRN ×3 (01:53→20:23)
[2016-11-05 04:00] VITALS: BP 129/70; PULSE 75; RESP 18; TEMP 98.3; O2SAT 96
[2016-11-05] MEDS: HEPARIN SODIUM - SQ 10,000 UNITS/ML VIAL SQ SCH ×3 (05:56→20:22)
[2016-11-05] MEDS: SODIUM BICARBONATE 650 MG TAB PO SCH ×3 (05:56→20:20)
[2016-11-05 07:48] LABS: BICARBONATE 25.2 MEQ/L (21.0-32.0); POTASSIUM 4.9 MEQ/L (3.5-5.1)
[2016-11-05 08:00] VITALS: BP 131/76; PULSE 67; RESP 18; TEMP 97.7; O2SAT 98
[2016-11-05] MEDS: ASPIRIN EC 81 MG TABEC PO SCH (09:00)
[2016-11-05] MEDS: HYDROCHLOROTHIAZIDE 12.5 MG CAP PO SCH (09:43)
[2016-11-05] MEDS: CHOLECALCIFEROL (VIT D3) 1000 UNIT TAB PO SCH (09:44)
[2016-11-05] MEDS: GABAPENTIN 300 MG CAP PO SCH (09:44)
[2016-11-05] MEDS: amLODIPine BESYLATE 5 MG TAB PO SCH (09:44)
[2016-11-05] MEDS: CARVEDILOL 12.5 MG TAB PO SCH ×2 (09:44→20:20)
[2016-11-05] MEDS: hydrALAZINE HCL 100 MG TAB PO SCH ×3 (09:44→17:17)
[2016-11-05] MEDS: CYCLOBENZAPRINE HCL 10 MG TAB PO SCH ×3 (09:44→17:17)
[2016-11-05] MEDS: SODIUM CHLORIDE 0.9% FLUSH 10 ML FLUSH IV FLUSH SCH ×2 (09:45→21:00)
[2016-11-05] MEDS: BUMETANIDE 1 MG TAB PO SCH (09:45)
--- NOTE | 2016-11-05 09:50 | HHI.PR ---
Subjective Remarks Follow-up acute on chronic kidney disease stage V/labile hypertension 11/01/16-patient seen and examined, renal indices improving, still with decrease UOP 11/02/16-patient seen and examined, complains of urinary retention. Reports history of BPH. 11/03/16-patient seen and examined, BP improving and patient reports improvement of symptoms of urinary retention. 11/04/16-patient seen and examined, patient is currently stable and states he is bored otherwise no acute event overnight. 11/05/16-patient seen and examined, complains of back pain. Slight uptake of renal indices Objective Vitals Vital Signs Date Time Temp Pulse Resp B/P (MAP) Pulse Ox O2 Delivery O2 Flow Rate FiO2 11/05/16 08:00 97.7 67 18 131/76 (94) 98 11/05/16 04:00 98.3 75 18 129/70 (89) 96 11/05/16 01:58 18 11/05/16 01:58 18 11/05/16 00:00 98.3 74 18 132/71 (91) 93 11/04/16 20:00 97.7 86 18 124/78 (93) 95 11/04/16 12:00 98.0 75 17 112/68 (83) 96 I/O 11/04/16 11/04/16 11/04/16 11/05/16 11/05/16 11/05/16 07:00 15:00 23:00 07:00 15:00 23:00 Intake Total 480 ml Output Total 625 ml 200 ml Balance -145 ml -200 ml Intake Oral 480 ml Output Urine Total 625 ml 200 ml # Bowel Movements 0 Result Diagram: 11/01/16 0320 11/05/16 0612 Objective Remarks GENERAL: NAD SKIN: Warm and dry. HEAD: Normocephalic. EYES: No scleral icterus. No injection or drainage. NECK: Supple, trachea midline. No JVD or lymphadenopathy. CARDIOVASCULAR: Regular rate and rhythm without murmurs, gallops, or rubs. RESPIRATORY: Breath sounds equal bilaterally. No accessory muscle use. GASTROINTESTINAL: Abdomen soft, non-tender, nondistended. MUSCULOSKELETAL: No cyanosis, or edema. BACK: Nontender without obvious deformity. No CVA tenderness. 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 Last Edited By: Nita Marie on Oct 23, 2016 17:07 Assessment and Plan 56-year-old man with CKD stage V, Slight uptake of renal indices Management per nephrology Patient may need dialysis Hyperkalemia from renal failure: See above. Resolved Status post Kayexalate. Chronic msk pain: Continue Flexeril, Neurontin, tramadol. PT ff BPH Continue Flomax 0.8 twice a day Hypertension Currently normotensive Coreg 25 mg twice a day, hydralazine 100 mg every 8 hours, Norvasc 10 mg daily, hydrochlorothiazide 12.5 daily, Bumex Other chronic medical conditions include depression, neuropathy, HLD, CAD: continue home medications as indicated. DVT prophylaxis: Heparin Paul Bernabe MD Nov 05, 2016 09:50
[2016-11-05 12:00] VITALS: BP 118/71; PULSE 81; RESP 16; TEMP 98.6; O2SAT 95
[2016-11-05 16:00] VITALS: BP 119/75; PULSE 78; RESP 17; TEMP 97.3; O2SAT 98
[2016-11-05 20:00] VITALS: BP 125/72; PULSE 81; RESP 18; TEMP 97.3; O2SAT 95
[2016-11-05] MEDS: ATORVASTATIN 80 MG TAB PO SCH (20:21)
[2016-11-05] MEDS: TAMSULOSIN HCL 0.4 MG CAP PO SCH (20:21)
[2016-11-05] MEDS: FAMOTIDINE 20 MG TAB PO SCH (20:21)
[2016-11-05] MEDS: MIRTAZAPINE 15 MG TAB PO SCH (20:21)
[2016-11-06] VITALS (7 sets, daily range): BP systolic 113–162; BP diastolic 65–80; PULSE 67–95; RESP 17–19; TEMP 96–97.6; O2SAT 95–98
[2016-11-06] MEDS: traMADol HCL 50 MG TAB PO PRN ×3 (03:33→23:17)
[2016-11-06] MEDS: HEPARIN SODIUM - SQ 10,000 UNITS/ML VIAL SQ SCH ×3 (05:22→21:16)
[2016-11-06] MEDS: MORPHINE SULFATE 4 MG/ML INJ IV PUSH PRN ×2 (05:22→13:02)
[2016-11-06] MEDS: SODIUM BICARBONATE 650 MG TAB PO SCH ×3 (05:22→21:16)
[2016-11-06] MEDS: HYDROCHLOROTHIAZIDE 12.5 MG CAP PO SCH (08:38)
[2016-11-06] MEDS: ASPIRIN EC 81 MG TABEC PO SCH (08:38)
[2016-11-06] MEDS: BUMETANIDE 1 MG TAB PO SCH (08:38)
[2016-11-06] MEDS: amLODIPine BESYLATE 5 MG TAB PO SCH (08:38)
[2016-11-06] MEDS: GABAPENTIN 300 MG CAP PO SCH (08:38)
[2016-11-06] MEDS: CARVEDILOL 12.5 MG TAB PO SCH ×2 (08:39→21:16)
[2016-11-06] MEDS: SODIUM CHLORIDE 0.9% FLUSH 10 ML FLUSH IV FLUSH SCH ×2 (08:39→21:15)
[2016-11-06] MEDS: CYCLOBENZAPRINE HCL 10 MG TAB PO SCH ×3 (08:39→16:47)
[2016-11-06] MEDS: CHOLECALCIFEROL (VIT D3) 1000 UNIT TAB PO SCH (08:39)
[2016-11-06] MEDS: hydrALAZINE HCL 100 MG TAB PO SCH ×3 (08:39→16:47)
--- NOTE | 2016-11-06 11:49 | HHI.PR ---
Subjective Remarks Follow-up acute on chronic kidney disease stage V/labile hypertension 11/01/16-patient seen and examined, renal indices improving, still with decrease UOP 11/02/16-patient seen and examined, complains of urinary retention. Reports history of BPH. 11/03/16-patient seen and examined, BP improving and patient reports improvement of symptoms of urinary retention. 11/04/16-patient seen and examined, patient is currently stable and states he is bored otherwise no acute event overnight. 11/05/16-patient seen and examined, complains of back pain. Slight uptake of renal indices 11/06/16 -patient seen and examined, stable. Discussed with case management regarding discharge disposition which can be made next week Objective Vitals Vital Signs Date Time Temp Pulse Resp B/P (MAP) Pulse Ox O2 Delivery O2 Flow Rate FiO2 11/06/16 08:00 97.6 74 18 143/79 (100) 97 11/06/16 04:00 97.1 77 18 131/80 (97) 96 11/06/16 00:15 96.0 80 18 113/67 (82) 97 11/05/16 20:28 20 11/05/16 20:00 97.3 81 18 125/72 (89) 95 11/05/16 18:20 16 11/05/16 16:00 97.3 78 17 119/75 (90) 98 11/05/16 12:00 98.6 81 16 118/71 (87) 95 I/O 11/05/16 11/05/16 11/05/16 11/06/16 11/06/16 11/06/16 06:59 14:59 22:59 06:59 14:59 22:59 Intake Total 575 ml Output Total 200 ml Balance -200 ml 575 ml Intake Oral 575 ml Output Urine Total 200 ml # Voids 6 3 # Bowel Movements 0 Result Diagram: 11/05/16 0612 Objective Remarks GENERAL: NAD SKIN: Warm and dry. HEAD: Normocephalic. EYES: No scleral icterus. No injection or drainage. NECK: Supple, trachea midline. No JVD or lymphadenopathy. CARDIOVASCULAR: Regular rate and rhythm without murmurs, gallops, or rubs. RESPIRATORY: Breath sounds equal bilaterally. No accessory muscle use. GASTROINTESTINAL: Abdomen soft, non-tender, nondistended. MUSCULOSKELETAL: No cyanosis, or edema. BACK: Nontender without obvious deformity. No CVA tenderness. 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 Last Edited By: Nita Marie on Oct 23, 2016 17:07 Assessment and Plan 56-year-old man with CKD stage V, Slight uptake of renal indices Management per nephrology and patient will need follow-up with nephrology to receive sample for Veltassa Patient may need dialysis Hyperkalemia from renal failure: See above. Resolved Status post Kayexalate. She will need outpatient follow-up with nephrology to receive samples for Veltassa Chronic msk pain: Continue Flexeril, Neurontin, tramadol. PT ff BPH Continue Flomax 0.8 twice a day Hypertension Currently normotensive Coreg 25 mg twice a day, hydralazine 100 mg every 8 hours, Norvasc 10 mg daily, hydrochlorothiazide 12.5 daily, Bumex Other chronic medical conditions include depression, neuropathy, HLD, CAD: continue home medications as indicated. DVT prophylaxis: Heparin Discharge Planning Likely discharge next week Paul Bernabe MD Nov 06, 2016 11:49
[2016-11-06] MEDS: FAMOTIDINE 20 MG TAB PO SCH (21:16)
[2016-11-06] MEDS: ATORVASTATIN 80 MG TAB PO SCH (21:16)
[2016-11-06] MEDS: MIRTAZAPINE 15 MG TAB PO SCH (21:16)
[2016-11-06] MEDS: TAMSULOSIN HCL 0.4 MG CAP PO SCH (21:17)
[2016-11-07] VITALS (9 sets, daily range): BP systolic 97–121; BP diastolic 57–74; PULSE 64–82; RESP 16–20; TEMP 96.8–98.3; O2SAT 96–99
[2016-11-07] MEDS: MORPHINE SULFATE 4 MG/ML INJ IV PUSH PRN ×3 (01:20→15:40)
[2016-11-07] MEDS: SODIUM BICARBONATE 650 MG TAB PO SCH ×3 (04:57→20:57)
[2016-11-07] MEDS: HEPARIN SODIUM - SQ 10,000 UNITS/ML VIAL SQ SCH ×3 (04:58→20:57)
[2016-11-07] MEDS: HYDROCHLOROTHIAZIDE 12.5 MG CAP PO SCH (09:00)
[2016-11-07] MEDS: BUMETANIDE 1 MG TAB PO SCH (09:00)
[2016-11-07] MEDS: ASPIRIN EC 81 MG TABEC PO SCH (09:00)
[2016-11-07] MEDS: CARVEDILOL 12.5 MG TAB PO SCH ×2 (09:41→20:57)
[2016-11-07] MEDS: SODIUM CHLORIDE 0.9% FLUSH 10 ML FLUSH IV FLUSH SCH ×2 (09:41→20:57)
[2016-11-07] MEDS: GABAPENTIN 300 MG CAP PO SCH (09:41)
[2016-11-07] MEDS: amLODIPine BESYLATE 5 MG TAB PO SCH (09:41)
[2016-11-07] MEDS: CYCLOBENZAPRINE HCL 10 MG TAB PO SCH ×3 (09:41→17:18)
[2016-11-07] MEDS: hydrALAZINE HCL 100 MG TAB PO SCH ×3 (09:41→17:27)
[2016-11-07] MEDS: traMADol HCL 50 MG TAB PO PRN ×2 (09:42→21:03)
[2016-11-07] MEDS: CHOLECALCIFEROL (VIT D3) 1000 UNIT TAB PO SCH (09:43)
--- NOTE | 2016-11-07 10:30 | HHI.PR ---
Subjective Remarks Follow-up acute on chronic kidney disease stage V/labile hypertension 11/01/16-patient seen and examined, renal indices improving, still with decrease UOP 11/02/16-patient seen and examined, complains of urinary retention. Reports history of BPH. 11/03/16-patient seen and examined, BP improving and patient reports improvement of symptoms of urinary retention. 11/04/16-patient seen and examined, patient is currently stable and states he is bored otherwise no acute event overnight. 11/05/16-patient seen and examined, complains of back pain. Slight uptake of renal indices 11/06/16 -patient seen and examined, stable. Discussed with case management regarding discharge disposition which can be made next week 11/07/16-patient seen and examined, no acute event overnight and patient remains stable. Objective Vitals Vital Signs Date Time Temp Pulse Resp B/P (MAP) Pulse Ox O2 Delivery O2 Flow Rate FiO2 11/07/16 08:00 97.7 77 16 118/74 (89) 97 11/07/16 04:00 96.8 64 17 119/74 (89) 98 11/07/16 00:00 98.3 77 17 121/71 (88) 96 11/06/16 20:20 95 11/06/16 20:00 96.6 72 17 120/71 (87) 98 11/06/16 16:00 97.5 71 17 131/65 (87) 97 11/06/16 12:00 97.4 67 19 162/77 (105) 95 I/O 11/06/16 11/06/16 11/06/16 11/07/16 11/07/16 11/07/16 07:00 15:00 23:00 07:00 15:00 23:00 Intake Total 1200 ml 240 ml Output Total 800 ml 600 ml Balance 400 ml -360 ml Intake Oral 1200 ml 240 ml Output Urine Total 800 ml 600 ml # Voids 3 Result Diagram: 11/05/16611 Objective Remarks GENERAL: NAD SKIN: Warm and dry. HEAD: Normocephalic. EYES: No scleral icterus. No injection or drainage. NECK: Supple, trachea midline. No JVD or lymphadenopathy. CARDIOVASCULAR: Regular rate and rhythm without murmurs, gallops, or rubs. RESPIRATORY: Breath sounds equal bilaterally. No accessory muscle use. GASTROINTESTINAL: Abdomen soft, non-tender, nondistended. MUSCULOSKELETAL: No cyanosis, or edema. BACK: Nontender without obvious deformity. No CVA tenderness. 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 Last Edited By: Nita Marie on Oct 23, 2016 17:07 Assessment and Plan 56-year-old man with CKD stage V, Slight uptake of renal indices Management per nephrology and patient will need follow-up with nephrology to receive sample for Veltassa Patient may need dialysis Hyperkalemia from renal failure: See above. Resolved Status post Kayexalate. He will need outpatient follow-up with nephrology to receive samples for Veltassa next week Chronic msk pain: Continue Flexeril, Neurontin, tramadol. PT ff BPH Continue Flomax 0.8 twice a day Hypertension Stable on Coreg 25 mg twice a day, hydralazine 100 mg every 8 hours, Norvasc 10 mg daily, hydrochlorothiazide 12.5 daily, Bumex Other chronic medical conditions include depression, neuropathy, HLD, CAD: continue home medications as indicated. DVT prophylaxis: Heparin Discharge Planning Likely discharge next week Paul Bernabe MD Nov 07, 2016 10:30
[2016-11-07] MEDS: TAMSULOSIN HCL 0.4 MG CAP PO SCH (20:57)
[2016-11-07] MEDS: FAMOTIDINE 20 MG TAB PO SCH (20:58)
[2016-11-07] MEDS: ATORVASTATIN 80 MG TAB PO SCH (20:58)
[2016-11-07] MEDS: MIRTAZAPINE 15 MG TAB PO SCH (20:58)
[2016-11-08] VITALS (7 sets, daily range): BP systolic 106–136; BP diastolic 65–81; PULSE 73–91; RESP 16–20; TEMP 97–98; O2SAT 94–97
[2016-11-08] MEDS: SODIUM BICARBONATE 650 MG TAB PO SCH ×3 (05:16→19:54)
[2016-11-08] MEDS: HEPARIN SODIUM - SQ 10,000 UNITS/ML VIAL SQ SCH ×3 (05:16→19:54)
[2016-11-08] MEDS: traMADol HCL 50 MG TAB PO PRN ×2 (05:24→16:48)
[2016-11-08 06:28] LABS: BICARBONATE 24.8 MEQ/L (21.0-32.0); POTASSIUM 5.3 MEQ/L (3.5-5.1)
[2016-11-08] MEDS: hydrALAZINE HCL 100 MG TAB PO SCH ×3 (09:02→17:48)
[2016-11-08] MEDS: CHOLECALCIFEROL (VIT D3) 1000 UNIT TAB PO SCH (09:03)
[2016-11-08] MEDS: ASPIRIN EC 81 MG TABEC PO SCH (09:03)
--- NOTE | 2016-11-08 09:03 | HHI.PR ---
Subjective Remarks Follow-up acute on chronic kidney disease stage V/labile hypertension 11/01/16-patient seen and examined, renal indices improving, still with decrease UOP 11/02/16-patient seen and examined, complains of urinary retention. Reports history of BPH. 11/03/16-patient seen and examined, BP improving and patient reports improvement of symptoms of urinary retention. 11/04/16-patient seen and examined, patient is currently stable and states he is bored otherwise no acute event overnight. 11/05/16-patient seen and examined, complains of back pain. Slight uptake of renal indices 11/06/16 -patient seen and examined, stable. Discussed with case management regarding discharge disposition which can be made next week 11/07/16-patient seen and examined, no acute event overnight and patient remains stable. 11/08/16-patient seen and examined, stable, no complaint Objective Vitals Vital Signs Date Time Temp Pulse Resp B/P (MAP) Pulse Ox O2 Delivery O2 Flow Rate FiO2 11/08/16 08:41 97.6 73 20 127/77 (94) 97 11/08/16 04:00 97.9 80 20 119/74 (89) 94 11/08/16 00:00 97.3 74 20 117/72 (87) 97 11/07/16 20:00 98.1 82 20 121/73 (89) 99 11/07/16 18:30 119/63 (81) 11/07/16 17:31 102/57 (72) 11/07/16 17:30 97/59 (72) 11/07/16 16:00 97.9 75 18 103/69 (80) 98 11/07/16 12:00 97.5 79 17 116/71 (86) 96 I/O 11/07/16 11/07/16 11/07/16 11/08/16 11/08/16 11/08/16 07:00 15:00 23:00 07:00 15:00 23:00 Intake Total 240 ml 960 ml 240 ml Output Total 600 ml Balance -360 ml 960 ml 240 ml Intake Oral 240 ml 960 ml 240 ml Output Urine Total 600 ml # Voids 5 1 # Bowel Movements 0 Result Diagram: 11/08/16 0507 Imaging Last Impressions Renal Ultrasound 10/22/16 0000 Signed Impressions: Service Date/Time: Saturday, October 22, 2016 13:15 - CONCLUSION: 1. No evidence for obstructive uropathy. 2. Redemonstration of increased renal cortical echogenicity consistent with medical renal disease. Elan Mcclendon MD Abdomen/Pelvis CT 10/22/16 0000 Signed Impressions: Service Date/Time: Saturday, October 22, 2016 19:55 - CONCLUSION: 1. Small free fluid in Morison's pouch and in the pelvic cavity of unclear etiology. Nothing organized or drainable. 2. No renal stones or evidence of obstructive uropathy. 3. Trace pleural fluid of each visualized lung base. Troy Dean MD Chest X-Ray 10/21/16 1914 Signed Impressions: Service Date/Time: September 19:28 - CONCLUSION: Underinflation with mild atelectasis at the lung bases. Otherwise, no acute finding is identified. Troy Cruz MD Objective Remarks GENERAL: NAD SKIN: Warm and dry. HEAD: Normocephalic. EYES: No scleral icterus. No injection or drainage. NECK: Supple, trachea midline. No JVD or lymphadenopathy. CARDIOVASCULAR: Regular rate and rhythm without murmurs, gallops, or rubs. RESPIRATORY: Breath sounds equal bilaterally. No accessory muscle use. GASTROINTESTINAL: Abdomen soft, non-tender, nondistended. MUSCULOSKELETAL: No cyanosis, or edema. BACK: Nontender without obvious deformity. No CVA tenderness. 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 Last Edited By: Nita Marie on Oct 23, 2016 17:07 Assessment and Plan 56-year-old man with CKD stage V, Slight uptake of renal indices Management per nephrology and patient will need follow-up with nephrology to receive sample for Veltassa Patient may need dialysis Hyperkalemia from renal failure: See above. Resolved Status post Kayexalate. He will need outpatient follow-up with nephrology to receive samples for Veltassa next week Chronic msk pain: Continue Flexeril, Neurontin, tramadol. PT ff BPH Continue Flomax 0.8 twice a day Hypertension Stable on Coreg 25 mg twice a day, hydralazine 100 mg every 8 hours, Norvasc 10 mg daily, hydrochlorothiazide 12.5 daily, Bumex Other chronic medical conditions include depression, neuropathy, HLD, CAD: continue home medications as indicated. DVT prophylaxis: Heparin Discharge Planning Likely discharge tomorrow 11/09/16 Paul Bernabe MD Nov 08, 2016 09:03
[2016-11-08] MEDS: amLODIPine BESYLATE 5 MG TAB PO SCH (09:04)
[2016-11-08] MEDS: HYDROCHLOROTHIAZIDE 12.5 MG CAP PO SCH (09:06)
[2016-11-08] MEDS: BUMETANIDE 1 MG TAB PO SCH (09:06)
[2016-11-08] MEDS: CYCLOBENZAPRINE HCL 10 MG TAB PO SCH ×3 (09:07→17:51)
[2016-11-08] MEDS: CARVEDILOL 12.5 MG TAB PO SCH ×2 (09:07→19:53)
[2016-11-08] MEDS: GABAPENTIN 300 MG CAP PO SCH (09:07)
[2016-11-08] MEDS ORDERED: TAMS5CAP PO (09:08)
[2016-11-08] MEDS: SODIUM CHLORIDE 0.9% FLUSH 10 ML FLUSH IV FLUSH SCH (09:08)
[2016-11-08] MEDS ORDERED: HYDR12.57 PO (09:08)
[2016-11-08] MEDS ORDERED: CYCL1TAB29 PO (09:08)
[2016-11-08] MEDS ORDERED: NEUR300C PO (09:08)
[2016-11-08] MEDS ORDERED: BUME1TAB PO (09:08)
[2016-11-08] MEDS ORDERED: HYDR-3801 PO (09:08)
[2016-11-08] MEDS ORDERED: ATOR1TAB18 PO (09:08)
[2016-11-08] MEDS ORDERED: CARV12.5 PO (09:08)
[2016-11-08] MEDS ORDERED: AMLO5 PO (09:08)
--- NOTE | 2016-11-08 09:10 | HHI.DS ---
Discharge Summary Admission Date Oct 22, 2016 at 08:38 Discharge Date: Nov 09, 2016 Admitting Diagnosis acute on chronic renal failure stage V (1) CKD (chronic kidney disease) stage 5, GFR less than 15 ml/min ICD Code: N18.5 - Chronic kidney disease, stage 5 Procedures None Brief History - From Admission nauseous weak short of breath diarrhea 3-5x a day, since last time here amonth ago greenish in color was on antibiotics did not have stools sent outpatient no vomiting just nausea also ruq pain- constant, like a knot, reports of urinary burning and pain decreased urination no blood in it but noticed change in color couple of weeks ago, had diazziness, chest pressure adn fell CBC/BMP: 11/08/16 0507 Significant Findings Laboratory Tests Test 11/08/16 05:07 Blood Urea Nitrogen 54 MG/DL (7-18) Creatinine 6.35 MG/DL (0.60-1.30) Random Glucose 109 MG/DL (74-106) Albumin 1.7 GM/DL (3.4-5.0) Calcium Level 8.4 MG/DL (8.5-10.1) Phosphorus Level 7.0 MG/DL (2.5-4.9) Potassium Level 5.3 MEQ/L (3.5-5.1) Estimat Glomerular Filtration Rate 11 ML/MIN (>89) Imaging Last Impressions Renal Ultrasound 10/22/16 0000 Signed Impressions: Service Date/Time: Saturday, October 22, 2016 13:15 - CONCLUSION: 1. No evidence for obstructive uropathy. 2. Redemonstration of increased renal cortical echogenicity consistent with medical renal disease. Elan Mcclendon MD Abdomen/Pelvis CT 10/22/16 0000 Signed Impressions: Service Date/Time: Saturday, October 22, 2016 19:55 - CONCLUSION: 1. Small free fluid in Morison's pouch and in the pelvic cavity of unclear etiology. Nothing organized or drainable. 2. No renal stones or evidence of obstructive uropathy. 3. Trace pleural fluid of each visualized lung base. Troy Dean MD Chest X-Ray 10/21/[id number] Signed Impressions: Service Date/Time: September 19:28 - CONCLUSION: Underinflation with mild atelectasis at the lung bases. Otherwise, no acute finding is identified. Troy Cruz MD PE at Discharge GENERAL: NAD SKIN: Warm and dry. HEAD: Normocephalic. EYES: No scleral icterus. No injection or drainage. NECK: Supple, trachea midline. No JVD or lymphadenopathy. CARDIOVASCULAR: Regular rate and rhythm without murmurs, gallops, or rubs. RESPIRATORY: Breath sounds equal bilaterally. No accessory muscle use. GASTROINTESTINAL: Abdomen soft, non-tender, nondistended. MUSCULOSKELETAL: No cyanosis, or edema. BACK: Nontender without obvious deformity. No CVA tenderness. Hospital Course CKD stage V, Slight uptake of renal indices Management per nephrology and patient will need follow-up with nephrology to receive sample for Veltassa Patient may need dialysis Hyperkalemia from renal failure: See above. Resolved Status post Kayexalate. He will need outpatient follow-up with nephrology to receive samples for Veltassa next week Chronic msk pain: Continue Flexeril, Neurontin, tramadol. PT ff BPH Continue Flomax 0.8 twice a day Hypertension Stable on Coreg 25 mg twice a day, hydralazine 100 mg every 8 hours, Norvasc 10 mg daily, hydrochlorothiazide 12.5 daily, Bumex Other chronic medical conditions include depression, neuropathy, HLD, CAD: continue home medications as indicated. DVT prophylaxis: Heparin Pt Condition on Discharge: Stable Discharge Disposition: Discharge Home Discharge Time: > 30 minutes Discharge Instructions Follow up Referrals: Nephrology PCP Follow-up - 1 Week New Medications: Amlodipine (Norvasc) 5 Mg Tab 10 MG PO DAILY for Blood Pressure Management, #30 TAB 11 Refills Atorvastatin (Atorvastatin) 80 Mg Tab 80 MG PO HS for Cholesterol Management, #30 TAB Bumetanide (Bumetanide) 1 Mg Tab 1 MG PO DAILY for Blood Pressure Management, #30 TAB Carvedilol (Coreg) 12.5 Mg Tab 25 MG PO BID for Blood Pressure Management, #60 TAB 11 Refills Cyclobenzaprine (Flexeril) 10 Mg Tab 10 MG PO TID for Build Immunity, #30 TAB Gabapentin (Neurontin) 300 Mg Cap 300 MG PO DAILY for Build Immunity, #30 CAP Hydralazine (Hydralazine) 100 Mg Tab 100 MG PO TID for Blood Pressure Management, #90 TAB 11 Refills Take with meals Hydrochlorothiazide (Hydrochlorothiazide) 12.5 Mg Cap 12.5 MG PO DAILY for Blood Pressure Management, #30 CAP 11 Refills Tamsulosin (Flomax) 0.4 Mg Cap 0.8 MG PO HS for Urinary Symptom Managemen, #30 CAP Continued Medications: Aspirin DR (Aspirin EC) 81 Mg Tabdr 81 MG PO DAILY, #30 TAB Calcium Carbonate-Cholecalciferol (Calcium + D3) 600-200 Mg-Unit Tab 1 TAB PO BID, TAB Cholecalciferol (Vitamin D3) 1,000 Unit Tab 2000 UNITS PO DAILY, #60 TAB Ergocalciferol (Ergocalciferol) 50,000 Unit Cap 13714 UNITS PO Q7D for VITre for 30 Days, CAP 0 Refills Mirtazapine (Mirtazapine) 15 Mg Tab 15 MG PO HS for Depression Control, #30 TAB 0 Refills Pantoprazole (Protonix) 40 Mg Tab 40 MG PO DAILY for Reflux, #30 TAB 3 Refills Discontinued Medications: Atorvastatin (Lipitor) 80 Mg Tab 80 MG PO HS, #30 TAB Carvedilol (Coreg) 12.5 Mg Tab 25 MG PO BID for HTN for 30 Days, TAB Cyclobenzaprine (Flexeril) 10 Mg Tab 10 MG PO TID for Muscle Spasm, #90 TAB 3 Refills Furosemide (Furosemide) 20 Mg Tab 40 MG PO BID for HTN for 30 Days, TAB Hydralazine (Hydralazine) 100 Mg Tab 100 MG PO TID for Blood Pressure Management, #90 TAB 5 Refills Take with meals Paul Bernabe MD Nov 08, 2016 09:10
[2016-11-08] MEDS: MORPHINE SULFATE 4 MG/ML INJ IV PUSH PRN (09:34)
[2016-11-08] MEDS: MAGNESIUM HYDROXIDE SUSP 30 ML CUP PO PRN (09:59)
--- NOTE | 2016-11-08 16:39 | HHI.NPPN ---
Subjective History of Present Illness The patient is a 56 yo AA male who is known to our services for CKD, HTN, proteinuria, and anemia. He has unfortunately had progressive renal decline over the past several months and presented to the ED on 10/21 by the urge of his PCP, Dr. Quintero, as it was noted on outpatient labs that he was in renal failure. Reports feeling fatigued, worsening swelling, and increased SOB since his discharge from here in August for PNA. At that admission, his Lasix was increased from 20mg MWF to 40mg BID (however states he is not always compliant with taking BID). He has not been on Losartan nor KCl since August admission. BP medications include Coreg 12.5mg BID, Hydralazine 100mg q8h, and Amlodipine 10mg QD. Says AM pressure are typically very high in the 190-200mmHg range, but improve to 140mmHg systolically in the afternoons. Denies any recent illness, no abx since August, no contrast exposure. Some nausea and decrease in appetite. Loose stools after abx in August, but no diarrhea nor vomiting. 10/21 SCr outpatient 5.69 eGFR 13 Admitting SCr 5.99 with eGFR 12 SCr at consult 5.81 eGFR 12 Interval History Patient indicating that his appetite is not very good right now. No nausea however. Review of Systems General Constitutional: Fatigue Genitourinary Remarks Hesitancy Objective Data Data Vital Signs Date Time Temp Pulse Resp B/P (MAP) Pulse Ox O2 Delivery O2 Flow Rate FiO2 11/08/16 16:00 98.0 91 19 116/71 (86) 96 11/08/16 12:00 97.0 73 16 106/65 (79) 96 11/08/16 08:41 97.6 73 20 127/77 (94) 97 11/08/16 04:00 97.9 80 20 119/74 (89) 94 11/08/16 00:00 97.3 74 20 117/72 (87) 97 11/07/16 20:00 98.1 82 20 121/73 (89) 99 11/07/16 18:30 119/63 (81) 11/07/16 17:31 102/57 (72) 11/07/16 17:30 97/59 (72) -: 11/08/16 0507 Physical Exam General Appearance: Well Developed, Well Nourished, No Acute Distress, Comfortable Pulmonary Resp Exam: Clear Bilaterally, Breath Sounds Equal, No Distress Cardiology CV Exam: Regular, Normal Sinus Rhythm, Good Perfusion, Murmur Gastrointestinal/Abdomen GI Exam: Soft, Non-Tender Integumentary Skin Exam: Clear, Warm, Normal Turgor Extremeties Extremities Exam: Trace Edema (trace in bilat hips) Neurologic Neuro Exam: Alert, Awake, Oriented, Speech Clear, Moving All Extremities Psychiatric Psych Exam: Appropriate Responses Assessment/Plan Problem List: (1) CKD (chronic kidney disease) stage 5, GFR less than 15 ml/min ICD Codes: N18.5 - Chronic kidney disease, stage 5 Plan: Unfortunately his renal indices have deteriorated significantly as last visit. Bumetanide was decreased but the creatinine has not improved. We'll hold bumetanide for the present repeat BMP in a.m. If creatinine level continues to deteriorate we may well have to initiate dialysis this admission. Uncertain why creatinine was initially improving and now deteriorating again. Patient indicating that he is trying to maintain adequate fluid intake. No NSAIDs are being administered for analgesia. He has again been advised to follow up with [facility] office as outpatient regarding Medicaid or other health insurance. Case management will have to be involved regarding insurance issues. If dialysis has to be started this admission, until he has an outpatient payor source (i.e. Medicaid/Medicare) he will be hospitalized to receive dialysis until this can be arranged. Advised that he may be here for upwards of 90 days and he is in verbal understanding of this. 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 Last Edited By: Nita Marie on Oct 23, 2016 17:07 (2) Hyperkalemia ICD Codes: E87.5 - Hyperkalemia Status: Acute Plan: Continue hydrochlorothiazide K+ restrictive diet. Continue to hold ACEi and ARBs (3) Metabolic acidosis ICD Codes: E87.2 - Acidosis Status: Acute Plan: Likely related to CKD. Improved with increase of po bicarb (4) Hypertension ICD Codes: I10 - Essential (primary) hypertension Status: Chronic Plan: Continue on current regimen. (5) Prostate enlargement ICD Codes: N40.0 - Benign prostatic hyperplasia without lower urinary tract symptoms Status: Acute Plan: The symptoms the patient is describing sounds to be related to prostatic enlargement. Will have RN do bladder scan after urination to assess for any significant PVR. Consider increasing Flomax to 0.8mg. Advised the patient that retention sensation is a prostatic issue and not a kidney issue. (6) CAD (coronary artery disease) ICD Codes: I25.10 - Atherosclerotic heart disease of [place] coronary artery without angina pectoris Status: Acute (7) Vitamin D deficiency ICD Codes: E55.9 - Vitamin D deficiency, unspecified Status: Acute (8) Anemia ICD Codes: D64.9 - Anemia, unspecified Status: Acute Plan: Likely of renal disease Radha Marie MD Nov 08, 2016 16:39
[2016-11-08] MEDS: ATORVASTATIN 80 MG TAB PO SCH (19:53)
[2016-11-08] MEDS: MIRTAZAPINE 15 MG TAB PO SCH (19:53)
[2016-11-08] MEDS: TAMSULOSIN HCL 0.4 MG CAP PO SCH (19:53)
[2016-11-08] MEDS: FAMOTIDINE 20 MG TAB PO SCH (19:53)
[2016-11-09] VITALS: BP 119/73; PULSE 77; RESP 20; TEMP 96.5; O2SAT 95
[2016-11-09] MEDS: SODIUM BICARBONATE 650 MG TAB PO SCH ×2 (05:25→12:36)
[2016-11-09 05:26] LABS: BICARBONATE 26.6 MEQ/L (21.0-32.0); POTASSIUM 5.1 MEQ/L (3.5-5.1)
[2016-11-09] MEDS: HEPARIN SODIUM - SQ 10,000 UNITS/ML VIAL SQ SCH (05:26)
[2016-11-09] MEDS: traMADol HCL 50 MG TAB PO PRN (05:26)
[2016-11-09 08:00] VITALS: BP 113/71; PULSE 76; RESP 18; TEMP 98.1; O2SAT 99
[2016-11-09] MEDS: GABAPENTIN 300 MG CAP PO SCH (09:19)
[2016-11-09] MEDS: hydrALAZINE HCL 100 MG TAB PO SCH ×2 (09:20→12:36)
[2016-11-09] MEDS: HYDROCHLOROTHIAZIDE 12.5 MG CAP PO SCH (09:20)
[2016-11-09] MEDS: amLODIPine BESYLATE 5 MG TAB PO SCH (09:20)
[2016-11-09] MEDS: CHOLECALCIFEROL (VIT D3) 1000 UNIT TAB PO SCH (09:20)
[2016-11-09] MEDS: CYCLOBENZAPRINE HCL 10 MG TAB PO SCH ×2 (09:20→12:36)
[2016-11-09] MEDS: CARVEDILOL 12.5 MG TAB PO SCH (09:20)
[2016-11-09] MEDS: ASPIRIN EC 81 MG TABEC PO SCH (09:21)
--- NOTE | 2016-11-09 09:39 | HHI.PR ---
Subjective Remarks Follow-up acute on chronic kidney disease stage V/labile hypertension 11/01/16-patient seen and examined, renal indices improving, still with decrease UOP 11/02/16-patient seen and examined, complains of urinary retention. Reports history of BPH. 11/03/16-patient seen and examined, BP improving and patient reports improvement of symptoms of urinary retention. 11/04/16-patient seen and examined, patient is currently stable and states he is bored otherwise no acute event overnight. 11/05/16-patient seen and examined, complains of back pain. Slight uptake of renal indices 11/06/16 -patient seen and examined, stable. Discussed with case management regarding discharge disposition which can be made next week 11/07/16-patient seen and examined, no acute event overnight and patient remains stable. 11/08/16-patient seen and examined, stable, no complaint 11/09/16-patient seen and examined, no complaint. Ready for discharge. Objective Vitals Vital Signs Date Time Temp Pulse Resp B/P (MAP) Pulse Ox O2 Delivery O2 Flow Rate FiO2 11/09/16 08:00 98.1 76 18 113/71 (85) 99 11/09/16 00:00 96.5 77 20 119/73 (88) 95 11/08/16 21:00 75 11/08/16 20:00 97.3 81 20 136/81 (99) 97 11/08/16 16:00 98.0 91 19 116/71 (86) 96 11/08/16 12:00 97.0 73 16 106/65 (79) 96 I/O 11/08/16 11/08/16 11/08/16 11/09/16 11/09/16 11/09/16 07:00 15:00 23:00 07:00 15:00 23:00 Intake Total 240 ml 960 ml 240 ml Output Total 300 ml 73 ml Balance 240 ml 660 ml 167 ml Intake Oral 240 ml 960 ml 240 ml Output Urine Total 300 ml 73 ml # Voids 1 3 # Bowel Movements 1 Result Diagram: 11/09/16 0415 Objective Remarks GENERAL: NAD SKIN: Warm and dry. HEAD: Normocephalic. EYES: No scleral icterus. No injection or drainage. NECK: Supple, trachea midline. No JVD or lymphadenopathy. CARDIOVASCULAR: Regular rate and rhythm without murmurs, gallops, or rubs. RESPIRATORY: Breath sounds equal bilaterally. No accessory muscle use. GASTROINTESTINAL: Abdomen soft, non-tender, nondistended. MUSCULOSKELETAL: No cyanosis, or edema. BACK: Nontender without obvious deformity. No CVA tenderness. 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 Last Edited By: Nita Marie on Oct 23, 2016 17:07 Assessment and Plan 56-year-old man with CKD stage V, Slight uptake of renal indices Management per nephrology and patient will need follow-up with nephrology to receive sample for Veltassa Patient may need dialysis Hyperkalemia from renal failure: See above. Resolved Status post Kayexalate. He will need outpatient follow-up with nephrology to receive samples for Veltassa next week Chronic msk pain: Continue Flexeril, Neurontin, tramadol. PT ff BPH Continue Flomax 0.8 twice a day Hypertension Stable on Coreg 25 mg twice a day, hydralazine 100 mg every 8 hours, Norvasc 10 mg daily, hydrochlorothiazide 12.5 daily, Bumex Other chronic medical conditions include depression, neuropathy, HLD, CAD: continue home medications as indicated. DVT prophylaxis: Heparin Discharge Planning Likely discharge tomorrow 11/09/16 Paul Bernabe MD Nov 09, 2016 09:39
[2016-11-09 12:00] VITALS: BP 123/73; PULSE 74; RESP 18; TEMP 97; O2SAT 95
--- NOTE | 2016-11-09 12:53 | HHI.NPPN ---
Subjective History of Present Illness The patient is a 56 yo AA male who is known to our services for CKD, HTN, proteinuria, and anemia. He has unfortunately had progressive renal decline over the past several months and presented to the ED on 10/21 by the urge of his PCP, Dr. Quintero, as it was noted on outpatient labs that he was in renal failure. Reports feeling fatigued, worsening swelling, and increased SOB since his discharge from here in August for PNA. At that admission, his Lasix was increased from 20mg MWF to 40mg BID (however states he is not always compliant with taking BID). He has not been on Losartan nor KCl since August admission. BP medications include Coreg 12.5mg BID, Hydralazine 100mg q8h, and Amlodipine 10mg QD. Says AM pressure are typically very high in the 190-200mmHg range, but improve to 140mmHg systolically in the afternoons. Denies any recent illness, no abx since August, no contrast exposure. Some nausea and decrease in appetite. Loose stools after abx in August, but no diarrhea nor vomiting. 10/21 SCr outpatient 5.69 eGFR 13 Admitting SCr 5.99 with eGFR 12 SCr at consult 5.81 eGFR 12 Interval History Pt reports no new issues Review of Systems General Constitutional: Fatigue Genitourinary Remarks Hesitancy Objective Data Data Vital Signs Date Time Temp Pulse Resp B/P (MAP) Pulse Ox O2 Delivery O2 Flow Rate FiO2 11/09/16 12:00 97.0 74 18 123/73 (90) 95 11/09/16 08:00 98.1 76 18 113/71 (85) 99 11/09/16 00:00 96.5 77 20 119/73 (88) 95 11/08/16 21:00 75 11/08/16 20:00 97.3 81 20 136/81 (99) 97 11/08/16 16:00 98.0 91 19 116/71 (86) 96 -: 11/09/16 0415 Imaging Last Impressions Renal Ultrasound 10/22/16 0000 Signed Impressions: Service Date/Time: Saturday, October 22, 2016 13:15 - CONCLUSION: 1. No evidence for obstructive uropathy. 2. Redemonstration of increased renal cortical echogenicity consistent with medical renal disease. Elan Mcclendon MD Abdomen/Pelvis CT 10/22/16 0000 Signed Impressions: Service Date/Time: Saturday, October 22, 2016 19:55 - CONCLUSION: 1. Small free fluid in Morison's pouch and in the pelvic cavity of unclear etiology. Nothing organized or drainable. 2. No renal stones or evidence of obstructive uropathy. 3. Trace pleural fluid of each visualized lung base. Troy Dean MD Chest X-Ray 10/21/16 1914 Signed Impressions: Service Date/Time: September 19:28 - CONCLUSION: Underinflation with mild atelectasis at the lung bases. Otherwise, no acute finding is identified. Troy Cruz MD Medication Review Current Medications Medications (Trade) Dose Ordered Sig/Ramakrishna Route Start Time Stop Time Status Last Admin (Ecotrin Ec) 81 mg DAILY PO 10/22/16 09:00 11/09/16 09:21 (Lipitor) 80 mg HS PO 10/22/16 21:00 11/08/16 19:53 (Coreg) 25 mg BID PO 10/22/16 09:00 11/09/16 09:20 (Flexeril) 10 mg TID PO 10/22/16 09:00 11/09/16 12:36 (Apresoline) 100 mg TID PO 10/22/16 09:00 11/09/16 12:36 (Remeron) 15 mg HS PO 10/22/16 21:00 11/08/16 19:53 (Heparin Inj) 5,000 units Q8HR SQ 10/22/16 14:00 11/09/16 05:26 (Neurontin) 300 mg DAILY PO 10/23/16 09:00 11/09/16 09:19 (Sodium Bicarbonate) 1,300 mg Q8HR PO 10/26/16 14:00 11/09/16 12:36 (Pepcid) 20 mg HS PO 10/26/16 21:00 11/08/16 19:53 (Milk Of Magnesia Liq) 30 ml Q12H PRN PO 10/28/16 10:30 11/08/16 09:59 (Vitamin D3) 2,000 units DAILY PO 10/29/16 12:00 11/09/16 09:20 (Ultram) 50 mg Q8H PRN PO 10/31/16 10:00 11/09/16 05:26 (Norvasc) 10 mg DAILY PO 11/01/16 09:00 11/09/16 09:20 (Microzide) 12.5 mg DAILY PO 11/02/16 12:00 11/09/16 09:20 (Flomax) 0.8 mg HS PO 11/02/16 21:00 11/08/16 19:53 Physical Exam General Appearance: Well Developed, Well Nourished, No Acute Distress, Comfortable Pulmonary Resp Exam: Clear Bilaterally, Breath Sounds Equal, No Distress Cardiology CV Exam: Regular, Normal Sinus Rhythm, Good Perfusion, Murmur Gastrointestinal/Abdomen GI Exam: Soft, Non-Tender Integumentary Skin Exam: Clear, Warm, Normal Turgor Extremeties Extremities Exam: Trace Edema (trace in bilat hips) Neurologic Neuro Exam: Alert, Awake, Oriented, Speech Clear, Moving All Extremities Psychiatric Psych Exam: Appropriate Responses Assessment/Plan Problem List: (1) CKD (chronic kidney disease) stage 5, GFR less than 15 ml/min ICD Codes: N18.5 - Chronic kidney disease, stage 5 Status: Chronic Plan: The patient's SCr level has remained at <15, but states he is overall feeling well with no significant uremic symptoms. Says that he would like to be discharged as he has "things he has to take care of". His acid/base status is acceptable and he does not have any significant fluid retention. Although his eGFR is at 11, we are OK for discharge with close outpatient follow up. He has been counseled about low potassium diet and importance of adherence. We are going to start on Velt[place] to help control potassium and he is to pecan picker samples at [facility] tomorrow. Has been provided with handouts and charts regarding diet otherwise. He has also been counseled about uremic symptoms as well as provided handout. He has been instructed to return to the ED in the event that these symptoms should occur. To resume Lasix 40mg QD if any significant weight gain, shortness of breath, orthopnea, or edema. He is to do a BMP on Tuesday and follow up as outpatient next Tuesday. He has again been advised to follow up with [facility] as outpatient regarding Medicaid or other health insurance. Case management will have to be involved regarding insurance issues. If dialysis has to be started this admission, until he has an outpatient payor source (i.e. Medicaid/Medicare) he will be hospitalized to receive dialysis until this can be arranged. Advised that he may be here for upwards of 90 days and he is in verbal understanding of this. 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 Last Edited By: Nita Marie on Oct 23, 2016 17:07 (2) Hyperkalemia ICD Codes: E87.5 - Hyperkalemia Status: Acute Plan: Resolved with low potassium diet (3) Metabolic acidosis ICD Codes: E87.2 - Acidosis Status: Chronic Plan: Controlled with po bicarb. To continue (4) Hypertension ICD Codes: I10 - Essential (primary) hypertension Status: Chronic Plan: Continue on current regimen. (5) Prostate enlargement ICD Codes: N40.0 - Benign prostatic hyperplasia without lower urinary tract symptoms Status: Chronic Plan: Symptoms resolved (6) CAD (coronary artery disease) ICD Codes: I25.10 - Atherosclerotic heart disease of [place] coronary artery without angina pectoris Status: Acute (7) Vitamin D deficiency ICD Codes: E55.9 - Vitamin D deficiency, unspecified Status: Chronic (8) Anemia ICD Codes: D64.9 - Anemia, unspecified Status: Chronic Plan: Likely of renal disease Kelley Lora Nov 09, 2016 12:53
== END 2016-11-09 13:15 | disposition home or self-care (01) | DRG 683 ==
LOC: NEPC 18:44 → INTOOBSV 21:34 → NEDA 21:34 → NEPFCDU 23:14 → OBSVTOIN 10-22 08:38 → N07A 10-22 15:25
PROVIDERS: ADMIT Family Medicine; ATTEND Hospitalist
DX: N17.9 Acute kidney failure, unspecified (principal); I12.0 Hypertensive chronic kidney disease with stage 5 chronic kidney disease or end stage renal disease; E87.2 Acidosis; N18.5 Chronic kidney disease, stage 5; E87.5 Hyperkalemia; E55.9 Vitamin D deficiency, unspecified; N40.1 Benign prostatic hyperplasia with lower urinary tract symptoms; R33.8 Other retention of urine; G89.29 Other chronic pain; E78.5 Hyperlipidemia, unspecified; I25.10 Atherosclerotic heart disease of native coronary artery without angina pectoris; R10.819 Abdominal tenderness, unspecified site; G62.9 Polyneuropathy, unspecified; F32.9 Major depressive disorder, single episode, unspecified; M54.5 Low back pain; D63.1 Anemia in chronic kidney disease; Z87.891 Personal history of nicotine dependence
CPT/HCPCS: 71010; 74176; 76775; 80048; 80053; 80069; 81001; 82306; 82550; 82552; 82728; 83540; 83550; 83605; 83690; 83735; 83970; 84132; 84155; 84484; 85025; 85027; 85610; 85730; 86317; 86803; 87086; 87205; 87340; 87641; 93005; 96374; 96375; E0100; J1644; J2270; J2405; Q4081; Q9963

== ENCOUNTER 2016-11-25 05:33 | Emergency (ER) | payer OTHER ==
[~2016-11-25] VITALS: Ht 188 cm; Wt 90.0 kg
[~2016-11-25 05:33] MED LIST changes: +AMLO5 PO; +ATOR1TAB18 PO; +BUME1TAB PO; -FURO20TA PO; -HYDR-3583 PO; +HYDR12.57 PO; -LEVA250T14 PO; -LIPI80TA PO; -LOSA100T PO; -METH125I2 IM; -POTA-163 PO
[2016-11-25 05:35] VITALS: BP 160/90; PULSE 83; RESP 16; TEMP 99; O2SAT 97
[2016-11-25 05:50] VITALS: BP 158/85; PULSE 76; RESP 16; O2SAT 98
--- NOTE | 2016-11-25 06:11 | PD ---
HPI Chief Complaint: Complaint Time Seen by Provider: 05:46 Travel History International Travel<30 days: No Contact w/Intl Traveler<30days: No Traveled to known affect area: No History of Present Illness HPI MAJOR COMPLAINT IS NOT BEING ABLE TO URINATE, PER PATIENT HE IS A CHRONIC KIDNEY DISEASE PATIENT THAT IS AWAITING EVALUATION FOR DIALYSIS AND WAS TOLD TO RETURN TO ER FOR PLACEMENT OF VASCULAR ACCESS FOR DIALYSIS. PATIENT ALSO COMPLAINTS OF BACK ACHE AND CHEST PAIN, WHICH IS SHARP, WORSE WITH MOVEMENT, THOUGH DENIES TRAUMA. NONRAD, 08/07 PFSH Past Medical History Hx Anticoagulant Therapy: Yes (on Plavix) Asthma: No Anxiety: No Depression: Yes Heart Rhythm Problems: No Cancer: No Cardiac Catheterization: Yes Cardiovascular Problems: Yes (cardiac cath in september 2015) High Cholesterol: Yes Chest Pain: Yes Congestive Heart Failure: Yes Cerebrovascular Accident: No Coronary Artery Disease: Yes Diabetes: Yes Patient Takes Glucophage: No Diminished Hearing: No Endocrine: Yes Gastrointestinal Disorders: Yes (gallbladder) GERD: Yes Genitourinary: No Headaches: Yes Hiatal Hernia: No Heparin Induced Thrombocytopen: No Hypertension: Yes (ON AND OFF) Immune Disorder: No Implanted Vascular Access Dvce: No Musculoskeletal: Yes (chronic lumbar pain) Neurologic: Yes (neuropathy) Psychiatric: Yes Reproductive: No Respiratory: Yes Immunizations Current: No Migraines: No Renal Failure: Yes (told his kidney fuction had gotten worse (remote hx: dialysis 1992)) Thyroid Disease: No Triglycerides - High: Yes Ulcer: No Past Surgical History Coronary Artery Bypass Graft: No Other Surgery: No Social History Alcohol Use: Yes (occassionally) Tobacco Use: No (quit recently, used to smoke 4-5 cigs a day) Substance Use: No Allergies-Medications (Allergen,Severity, Reaction): Coded Allergies: *MDRO Multi-Drug Resistant Organism (Verified Adverse Reaction, Unknown, ) 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 Reported Meds & Prescriptions Reported Meds & Active Scripts Active Hydrochlorothiazide 12.5 Mg Cap 12.5 Mg PO DAILY Bumetanide 1 Mg Tab 1 Mg PO DAILY Neurontin (Gabapentin) 300 Mg Cap 300 Mg PO DAILY Norvasc (Amlodipine Besylate) 5 Mg Tab 10 Mg PO DAILY Coreg (Carvedilol) 12.5 Mg Tab 25 Mg PO BID Hydralazine (Hydralazine HCl) 100 Mg Tab 100 Mg PO TID Take with meals Atorvastatin (Atorvastatin Calcium) 80 Mg Tab 80 Mg PO HS Flexeril (Cyclobenzaprine HCl) 10 Mg Tab 10 Mg PO TID Flomax (Tamsulosin HCl) 0.4 Mg Cap 0.8 Mg PO HS Flomax (Tamsulosin HCl) 0.4 Mg Cap 0.4 Mg PO HS 30 Days Ergocalciferol 50,000 Unit Cap 50,000 Units PO Q7D 30 Days Clopidogrel (Clopidogrel Bisulfate) 75 Mg Tab 75 Mg PO DAILY Amlodipine (Amlodipine Besylate) 10 Mg Tab 10 Mg PO DAILY Vitamin D3 (Cholecalciferol) 1,000 Unit Tab 2,000 Units PO DAILY Aspirin EC (Aspirin) 81 Mg Tabdr 81 Mg PO DAILY Protonix (Pantoprazole Sodium) 40 Mg Tab 40 Mg PO DAILY Reported Gabapentin 600 Mg Tab 600 Mg PO TID Calcium + D3 (Calcium Carbonate-Cholecalciferol) 600-200 Mg-Unit Tab 1 Tab PO BID Mirtazapine 15 Mg Tab 15 Mg PO HS Review of Systems Except as stated in HPI: all other systems reviewed are Neg Genitourinary: Positive: Decreased Urinary Output (URINARY RETENTION) Musculoskeletal: Positive: Pain (BACK AND CHEST WALL PAIN) Physical Exam Narrative GENERAL: SKIN: Warm and dry. HEAD: Atraumatic. Normocephalic. EYES: Pupils equal and round. No scleral icterus. No injection or drainage. ENT: No nasal bleeding or discharge. Mucous membranes pink and moist. NECK: Trachea midline. No JVD. CARDIOVASCULAR: Regular rate and rhythm. REPRODUCIBLE CHEST WALL PAIN ON PALPATION RESPIRATORY: No accessory muscle use. Clear to auscultation. Breath sounds equal bilaterally. GASTROINTESTINAL: Abdomen soft, non-tender, nondistended. MUSCULOSKELETAL: Extremities without clubbing, cyanosis, or edema. No obvious deformities. NEUROLOGICAL: Awake and alert. No obvious cranial nerve deficits. Motor grossly within normal limits. Five out of 5 muscle strength in the arms and legs. Normal speech. PSYCHIATRIC: Appropriate mood and affect; insight and judgment normal. Data Data Last Documented VS Vital Signs Date Time Temp Pulse Resp B/P (MAP) Pulse Ox O2 Delivery O2 Flow Rate FiO2 11/25/16 05:50 76 16 158/85 (109) 98 Room Air 11/25/16 05:35 99.0 Orders Orders Electrocardiogram (11/25/16 05:46) Chest, Single Ap (11/25/16 05:46) Urinary Catheter Insert/Apply (11/25/16 05:46) Complete Blood Count With Diff (11/25/16 05:48) Basic Metabolic Panel (Bmp) (11/25/16 05:48) Ckmb (Isoenzyme) Profile (11/25/16 05:48) Troponin I (11/25/16 05:48) B-Type Natriuretic Peptide (11/25/16 05:48) Prothrombin Time / Inr (Pt) (11/25/16 05:48) Act Partial Throm Time (Ptt) (11/25/16 05:48) Drug Screen, Random Urine (11/25/16 05:48) Alcohol (Ethanol) (11/25/16 05:48) Salicylates (Aspirin) (11/25/16 05:48) Tylenol (Acetaminophen) (11/25/16 05:48) CKMB (11/25/16 05:50) CKMB% (11/25/16 05:50) Labs Laboratory Tests Test 11/25/16 05:50 11/25/16 06:10 White Blood Count 11.3 TH/MM3 Red Blood Count 3.33 MIL/MM3 Hemoglobin 10.6 GM/DL Hematocrit 31.6 % Mean Corpuscular Volume 94.9 FL Mean Corpuscular Hemoglobin 31.9 PG Mean Corpuscular Hemoglobin Concent 33.6 % Red Cell Distribution Width 13.7 % Platelet Count 258 TH/MM3 Mean Platelet Volume 8.0 FL Neutrophils (%) (Auto) 56.1 % Lymphocytes (%) (Auto) 35.5 % Monocytes (%) (Auto) 3.6 % Eosinophils (%) (Auto) 4.4 % Basophils (%) (Auto) 0.4 % Neutrophils # (Auto) 6.3 TH/MM3 Lymphocytes # (Auto) 4.0 TH/MM3 Monocytes # (Auto) 0.4 TH/MM3 Eosinophils # (Auto) 0.5 TH/MM3 Basophils # (Auto) 0.0 TH/MM3 CBC Comment DIFF FINAL Differential Comment Prothrombin Time 9.6 SEC Prothromb Time International Ratio 0.9 RATIO Activated Partial Thromboplast Time 28.8 SEC Blood Urea Nitrogen 63 MG/DL Creatinine 4.80 MG/DL Random Glucose 120 MG/DL Calcium Level 7.5 MG/DL Sodium Level 139 MEQ/L Potassium Level 4.4 MEQ/L Chloride Level 112 MEQ/L Carbon Dioxide Level 18.4 MEQ/L Anion Gap 9 MEQ/L Estimat Glomerular Filtration Rate 15 ML/MIN Total Creatine Kinase 179 U/L Troponin I 0.03 NG/ML B-Type Natriuretic Peptide 75 PG/ML Salicylates Level 2.4 MG/DL Acetaminophen Level LESS THAN 2.0 MCG/ML Ethyl Alcohol Level 184 MG/DL Urine Opiates Screen NEG Urine Barbiturates Screen NEG Urine Amphetamines Screen NEG Urine Benzodiazepines Screen NEG Urine Cocaine Screen NEG Urine Cannabinoids Screen NEG MDM Medical Decision Making Medical Screen Exam Complete: Yes Emergency Medical Condition: Yes Medical Record Reviewed: Yes Interpretation(s) NSR, NORMAL INTERVALS, NO STEMI PATTERN. Differential Diagnosis UTI V CHEST WALL STRAIN V STEMI V PTX V URINARY RETENTION Narrative Course D/W HEPAS WHO AGREED THAT PATIENT IS STABLE FOR D/C AND FOLLOW UP OUTPATIENT WITH SURGEON FOR PLACEMENT OF TEMPORARY VASCULAR ACCESS.....NO PULM EDEMA, NO HYPERKALEMIA Diagnosis Primary Impression: CKD (chronic kidney disease) stage 5, GFR less than 15 ml/min Additional Impression: Chest wall pain, chronic Admitting Information Admitting Physician Requests: Observation Referrals: Radha Marie MD TO SCHEDULE OUTPATIENT PLACEMENT OF YOUR TEMPORARY VASCULAR CATH SO THAT YOU MAY START DIALYSIS. Patient Instructions: End Stage Kidney Disease (DC), General Instructions Disposition: 01 DISCHARGE HOME Condition: Stable Corona Iverson MD Nov 25, 2016 06:11
--- NOTE | 2016-11-25 06:12 | RADRPT ---
EXAM DATE/TIME: 11/25/2016 05:45 [facility] COMPARISON: CHEST SINGLE AP, October 21, 2016, 19:28. INDICATIONS : Chest pain. MEDICAL HISTORY : Cardiovascular disease. Congestive heart failure. Hypertension.Renal failure.Diabetes. SURGICAL HISTORY : None. ENCOUNTER: Initial ACUITY: 1 day PAIN SCORE: 3/10 LOCATION: Bilateral chest FINDINGS: A single view of the chest demonstrates the lungs to be symmetrically aerated without evidence of mas s, infiltrate or effusion. The cardiomediastinal contours are unremarkable. Osseous structures are intact. CONCLUSION: No acute disease. No significant change has occurred. Todd Clements MD on November 25, 2016 at 6:10 Board Certified Radiologist. This report was verified electronically.
[2016-11-25 06:21] LABS: AUTOMATED NEUTROPHIL # 6.3 TH/MM3 (1.8-7.7); BASOPHIL % 0.4 % (0.0-2.0); EOSINOPHIL # 0.5 TH/MM3 (0-0.4); EOSINOPHIL % 4.4 % (0.0-4.0); HEMATOCRIT 31.6 % (39.0-51.0); HEMO FLAGS DIFF FINAL; LYMPH % 35.5 % (9.0-44.0); MEAN CELL VOLUME 94.9 FL (80.0-100.0); MEAN CORPUSCULAR HEMOGLOBIN 31.9 PG (27.0-34.0); MEAN CORPUSCULAR HGB CONC 33.6 % (32.0-36.0); MONO % 3.6 % (0.0-8.0); NEUT % 56.1 % (16.0-70.0); PLATELET COUNT 258 TH/MM3 (150-450); RED BLOOD COUNT 3.33 MIL/MM3 (4.50-5.90); RED CELL DISTRIBUTION WIDTH 13.7 % (11.6-17.2); WHITE BLOOD COUNT 11.3 TH/MM3 (4.0-11.0)
[2016-11-25 06:35] LABS: APTT (PATIENT) 28.8 SEC (24.3-30.1); INTERNATIONAL NORMALIZED RATIO 0.9 RATIO; PROTHROMBIN TIME - PATIENT 9.6 SEC (9.8-11.6)
[2016-11-25 06:41] LABS: ANION GAP 9 MEQ/L (5-15); BICARBONATE 18.4 MEQ/L (21.0-32.0); BLOOD UREA NITROGEN 63 MG/DL (7-18); CHLORIDE 112 MEQ/L (98-107); GLOMERULAR FILTRATION RATE 15 ML/MIN (>89); POTASSIUM 4.4 MEQ/L (3.5-5.1); SODIUM (NA) 139 MEQ/L (136-145)
[2016-11-25 06:42] LABS: ACETAMINOPHEN LESS THAN 2.0 MCG/ML (10.0-30.0)
[2016-11-25 06:46] LABS: CREATINE KINASE 179 U/L (39-308)
[2016-11-25 07:09] LABS: ALCOHOL 184 MG/DL (0-5)
[2016-11-25 07:21] LABS: CKMB 1.8 NG/ML (0.5-3.6)
[2016-11-25 09:02] VITALS: BP 174/84; PULSE 69; RESP 18; O2SAT 99
--- NOTE | 2016-11-25 17:11 | EKG ---
Date Performed: 11/25/2016 Time Performed: 05:59:45 PTAGE: 56 years EKG: Sinus rhythm NORMAL ECG Since PREVIOUS TRACING , no significant change noted PREVIOUS TRACIN10/22/201611.22 DOCTOR: Aubree Colin Interpretating Date/Time 11/25/2016 17:10:02
== END 2016-11-25 11:13 | disposition home or self-care (01) ==
LOC: NEPE 05:33
DX: N18.5 Chronic kidney disease, stage 5 (principal); R07.89 Other chest pain; I11.0 Hypertensive heart disease with heart failure; E11.9 Type 2 diabetes mellitus without complications; Z79.01 Long term (current) use of anticoagulants; Z79.899 Other long term (current) drug therapy
CPT/HCPCS: 51702; 71010; 80048; 80307; 82550; 82552; 83880; 84484; 85025; 85610; 85730; 93005

== ENCOUNTER 2017-05-01 12:20 | Inpatient (IN) | payer MEDICAID, OTHER ==
[~2017-05-01] VITALS: Ht 188 cm; Wt 107.5 kg
[~2017-05-01 12:20] MED LIST changes: -ASPI81TA11 PO; +ASPI81TA23 PO; -ATOR1TAB18 PO; +ATOR80TA45 PO; +CYCL10TA PO; -CYCL1TAB29 PO; -ERGO1CAP30 PO; +VITA500012 PO
[2017-05-01 12:23] VITALS: BP 158/68; PULSE 111; RESP 16; TEMP 98.7; O2SAT 97
[2017-05-01 12:45] VITALS: BP 145/76; PULSE 93; RESP 18; O2SAT 99
--- NOTE | 2017-05-01 12:57 | PD ---
HPI Chief Complaint: Chest Pain Time Seen by Provider: 12:39 Travel History International Travel<30 days: No Contact w/Intl Traveler<30days: No Traveled to known affect area: No History of Present Illness HPI 57yo M with PMH of CKD stage 5, CHF presents to the ED with multiple complaints. Pt's main complaint is left sided chest pain for 2 days. It is sharp, worst with lying down and associated with sob. +Nausea and diaphoresis. Pt also with abdominal pain for 3-4 days. Said it is epigastric and radiates to right upper abdomen. Denies any fever, vomiting, dysuria. PFSH Past Medical History Hx Anticoagulant Therapy: Yes (on Plavix) Asthma: No Anxiety: No Depression: Yes Heart Rhythm Problems: No Cancer: No Cardiac Catheterization: Yes Cardiovascular Problems: Yes High Cholesterol: Yes Chest Pain: Yes Congestive Heart Failure: Yes Cerebrovascular Accident: No Coronary Artery Disease: Yes Diabetes: Yes Patient Takes Glucophage: No Diminished Hearing: No Endocrine: Yes Gastrointestinal Disorders: Yes (gallbladder) GERD: Yes Genitourinary: No Headaches: Yes Hiatal Hernia: No Heparin Induced Thrombocytopen: No Hypertension: Yes (ON AND OFF) Immune Disorder: No Implanted Vascular Access Dvce: No Musculoskeletal: Yes (chronic lumbar pain) Neurologic: Yes (neuropathy) Psychiatric: Yes Reproductive: No Respiratory: Yes Immunizations Current: No Migraines: No Renal Failure: Yes (told his kidney fuction had gotten worse (remote hx: dialysis 1992)) Thyroid Disease: No Triglycerides - High: Yes Ulcer: No Past Surgical History Coronary Artery Bypass Graft: No Other Surgery: No Social History Alcohol Use: Yes (occassionally) Tobacco Use: No (quit recently, used to smoke 4-5 cigs a day) Substance Use: No Allergies-Medications (Allergen,Severity, Reaction): Coded Allergies: *MDRO Multi-Drug Resistant Organism (Verified Adverse Reaction, Unknown, ) 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 Reported Meds & Prescriptions Reported Meds & Active Scripts Active Hydrochlorothiazide 12.5 Mg Cap 12.5 Mg PO DAILY Bumetanide 1 Mg Tab 1 Mg PO DAILY Neurontin (Gabapentin) 300 Mg Cap 300 Mg PO DAILY Norvasc (Amlodipine Besylate) 5 Mg Tab 10 Mg PO DAILY Coreg (Carvedilol) 12.5 Mg Tab 25 Mg PO BID Hydralazine (Hydralazine HCl) 100 Mg Tab 100 Mg PO TID Take with meals Atorvastatin (Atorvastatin Calcium) 80 Mg Tab 80 Mg PO HS Flexeril (Cyclobenzaprine HCl) 10 Mg Tab 10 Mg PO TID Flomax (Tamsulosin HCl) 0.4 Mg Cap 0.4 Mg PO HS 30 Days Clopidogrel (Clopidogrel Bisulfate) 75 Mg Tab 75 Mg PO DAILY Amlodipine (Amlodipine Besylate) 10 Mg Tab 10 Mg PO DAILY Vitamin D3 (Cholecalciferol) 1,000 Unit Tab 2,000 Units PO DAILY Aspirin EC (Aspirin) 81 Mg Tabdr 81 Mg PO DAILY Protonix (Pantoprazole Sodium) 40 Mg Tab 40 Mg PO DAILY Reported Hydrocodone-Acetaminophen 10-325 mg Tab 1 Tab PO Q4H PRN Gabapentin 600 Mg Tab 600 Mg PO TID Mirtazapine 15 Mg Tab 30 Mg PO HS Review of Systems Except as stated in HPI: all other systems reviewed are Neg Physical Exam Narrative GENERAL: 57yo M in mild distress. SKIN: Focused skin assessment warm/dry. HEAD: Atraumatic. Normocephalic. EYES: Pupils equal and round. No scleral icterus. No injection or drainage. ENT: No nasal bleeding or discharge. Mucous membranes pink and moist. NECK: Trachea midline. No JVD. CARDIOVASCULAR: Regular rate and rhythm. No murmur appreciated. RESPIRATORY: No accessory muscle use. Clear to auscultation. Breath sounds equal bilaterally. GASTROINTESTINAL: Abdomen soft, +TTP epigastric, RUQ. No rebound tenderness or guarding. MUSCULOSKELETAL: No obvious deformities. No clubbing. No cyanosis. +Bilateral lower ext edema. NEUROLOGICAL: Awake and alert. No obvious cranial nerve deficits. Motor grossly within normal limits. Normal speech. PSYCHIATRIC: Appropriate mood and affect; insight and judgment normal. Data Data Last Documented VS Vital Signs Date Time Temp Pulse Resp B/P (MAP) Pulse Ox O2 Delivery O2 Flow Rate FiO2 05/01/17 16:20 92 18 170/90 (116) 98 Room Air 05/01/17 12:23 98.7 Orders Orders Basic Metabolic Panel (Bmp) (05/01/17 12:40) Complete Blood Count With Diff (05/01/17 12:40) Magnesium (Mg) (05/01/17 12:40) Prothrombin Time / Inr (Pt) (05/01/17 12:40) Act Partial Throm Time (Ptt) (05/01/17 12:40) Troponin I (05/01/17 12:40) Chest, Single Ap (05/01/17 12:40) Ct Abd/Pel W/O Iv Contrast (05/01/17 ) B-Type Natriuretic Peptide (05/01/17 12:57) Morphine Inj (Morphine Inj) (05/01/17 13:00) Protein Corrected Calcium(Pcc) (05/01/17 12:44) Calcium Gluconate Inj (Calcium Gluconate (05/01/17 15:00) Electrocardiogram (05/01/17 12:32) Pantoprazole Inj (Protonix Inj) (05/01/17 16:15) Type And Screen (05/01/17 16:10) Admit To Inpatient (05/01/17 ) Vital Signs (Adult) Q4H (05/01/17 16:35) Activity Oob With Assistance (05/01/17 16:35) Dog Catcher / Telemetry .CONTINUOUS (05/01/17 16:35) Intake + Output JEFFREY.QSHIFT (05/01/17 16:35) Diet Npo (05/01/17 Dinner) Sodium Chloride 0.9% Flush (Ns Flush) (05/01/17 16:45) Sodium Chloride 0.9% Flush (Ns Flush) (05/01/17 21:00) Acetaminophen (Tylenol) (05/01/17 16:45) Ondansetron Inj (Zofran Inj) (05/01/17 16:45) Scd Bilateral/Knee High JEFFREY.BID (05/01/17 16:35) Naloxone Inj (Narcan Inj) (05/01/17 16:45) Magnesium Hydroxide Liq (Milk Of Magnesi (05/01/17 16:45) Sennosides (Senokot) (05/01/17 16:45) Bisacodyl Supp (Dulcolax Supp) (05/01/17 16:45) Inpatient Certification (05/01/17 ) Admit Order (Ed Use Only) (05/01/17 16:38) Hepatic Functional Panel (05/01/17 12:44) Lipase (05/01/17 12:44) Labs Laboratory Tests Test 3/4/18 12:44 White Blood Count 12.8 TH/MM3 Red Blood Count 2.20 MIL/MM3 Hemoglobin 7.6 GM/DL Hematocrit 22.5 % Mean Corpuscular Volume 101.9 FL Mean Corpuscular Hemoglobin 34.3 PG Mean Corpuscular Hemoglobin Concent 33.6 % Red Cell Distribution Width 13.6 % Platelet Count 361 TH/MM3 Mean Platelet Volume 7.7 FL Neutrophils (%) (Auto) 68.3 % Lymphocytes (%) (Auto) 22.7 % Monocytes (%) (Auto) 5.2 % Eosinophils (%) (Auto) 3.3 % Basophils (%) (Auto) 0.5 % Neutrophils # (Auto) 8.8 TH/MM3 Lymphocytes # (Auto) 2.9 TH/MM3 Monocytes # (Auto) 0.7 TH/MM3 Eosinophils # (Auto) 0.4 TH/MM3 Basophils # (Auto) 0.1 TH/MM3 CBC Comment DIFF FINAL Differential Comment Prothrombin Time 9.0 SEC Prothromb Time International Ratio 0.9 RATIO Activated Partial Thromboplast Time 27.0 SEC Blood Urea Nitrogen 39 MG/DL Creatinine 6.02 MG/DL Random Glucose 84 MG/DL Total Protein 6.3 GM/DL Albumin 2.4 GM/DL Calcium Level 7.3 MG/DL Magnesium Level 2.3 MG/DL Alkaline Phosphatase 76 U/L Aspartate Amino Transf (AST/SGOT) 22 U/L Alanine Aminotransferase (ALT/SGPT) 16 U/L Total Bilirubin 0.1 MG/DL Direct Bilirubin LESS THAN 0.1 MG/DL Sodium Level 129 MEQ/L Potassium Level 5.0 MEQ/L Chloride Level 104 MEQ/L Carbon Dioxide Level 10.8 MEQ/L Anion Gap 14 MEQ/L Estimat Glomerular Filtration Rate 12 ML/MIN Protein Corrected Calcium 7.7 MG/DL Indirect Bilirubin 0.0 MG/DL Troponin I 0.04 NG/ML B-Type Natriuretic Peptide 131 PG/ML Lipase 417 U/L [facility] Medical Decision Making Medical Screen Exam Complete: Yes Emergency Medical Condition: Yes Interpretation(s) EKG: Sinus tachycardia at 101bpm. Normal axis. No ST segment elevation or depression Differential Diagnosis ACS vs. CHF vs. pneumonia vs. anemia Narrative Course 57yo M with c/o chest pain and also abdominal pain but the chest pain is really what brought him in. He also has a history of chronic pain and has not follow with pain management yet. Labs reviewed, mild leukocytosis at 12.8. H/H low at 7.6/22.5. This was significant from his previous H/H in 10/2016. I asked if he has any bleeding and he said he does have a few days of blood in stool. Hemaprompt positive. Protonix given. Calcium is low and replaced with calcium gluconate. Mild hyponatremia at 129. Troponin negative at 0.04. Creatinine elevated at 6.[address] Marie is his layout former. CXR negative. CT a/p showed trace free fluid in abdomen. Cardiomegaly with trace left pleural effusion. BNP pending. Pt given morphine for pain. Discussed with Dr. Hernandez and accepted to her service for chest pain, symptomatic anemia with GI bleed. [facility] Point of Care Internal Pos. & Neg. Controls: Passed Fecal Specimen Occult Blood: Positive Diagnosis Primary Impression: Chest pain Qualified Codes: R07.9 - Chest pain, unspecified Additional Impression: GI bleed Qualified Codes: K92.2 - Gastrointestinal hemorrhage, unspecified Admitting Information Admitting Physician Requests: Ann Colón DO May 01, 2017 12:56
[2017-05-01] MEDS ORDERED: MORPHINE SULFATE 4 MG/ML INJ IV PUSH ONE ×2 (13:00→17:00)
[2017-05-01 13:32] LABS: AUTOMATED NEUTROPHIL # 8.8 TH/MM3 (1.8-7.7); BASOPHIL # 0.1 TH/MM3 (0-0.2); BASOPHIL % 0.5 % (0.0-2.0); EOSINOPHIL # 0.4 TH/MM3 (0-0.4); EOSINOPHIL % 3.3 % (0.0-4.0); HEMATOCRIT 22.5 % (39.0-51.0); HEMOGLOBIN 7.6 GM/DL (13.0-17.0); LYMPH % 22.7 % (9.0-44.0); LYMPHOCYTE # 2.9 TH/MM3 (1.0-4.8); MEAN CELL VOLUME 101.9 FL (80.0-100.0); MEAN CORPUSCULAR HEMOGLOBIN 34.3 PG (27.0-34.0); MEAN CORPUSCULAR HGB CONC 33.6 % (32.0-36.0); MEAN PLATELET VOLUME 7.7 FL (7.0-11.0); MONO % 5.2 % (0.0-8.0); MONOCYTE # 0.7 TH/MM3 (0-0.9); NEUT % 68.3 % (16.0-70.0); PLATELET COUNT 361 TH/MM3 (150-450); RED CELL DISTRIBUTION WIDTH 13.6 % (11.6-17.2); WHITE BLOOD COUNT 12.8 TH/MM3 (4.0-11.0)
--- NOTE | 2017-05-01 13:32 | RADRPT ---
EXAM DATE/TIME: 05/01/2017 13:02 [facility] COMPARISON: CHEST SINGLE AP, November 25, 2016, 5:45. INDICATIONS : Chest Pain MEDICAL HISTORY : Cardiovascular disease. Congestive heart failure. Hypertension.Renal failure.Diabetes. SURGICAL HISTORY : None. ENCOUNTER: Initial ACUITY: 1 day PAIN SCORE: 5/10 LOCATION: chest FINDINGS: A single view of the chest demonstrates the lungs to be symmetrically aerated without evidence of mas s, infiltrate or effusion. The cardiomediastinal contours are unremarkable. Osseous structures are intact. CONCLUSION: Normal examination. Remigio Bill MD on May 01, 2017 at 13:30 Board Certified Radiologist. This report was verified electronically.
--- NOTE | 2017-05-01 13:37 | RADRPT ---
EXAM DATE/TIME: 05/01/2017 13:15 [facility] COMPARISON: CT ABDOMEN & PELVIS W/O CONTRAST, October 22, 2016, 19:55. INDICATIONS : Back pain, diffuse abdomen pain ORAL CONTRAST: No oral contrast ingested. RADIATION DOSE: 12.48 CTDIvol (mGy) MEDICAL HISTORY : Cardiovascular disease. Congestive heart failure. Hypertension.Neuropathy, renal failure, dialysis, G ERD SURGICAL HISTORY : None. ENCOUNTER: Initial ACUITY: 1 day PAIN SCALE: 7/10 LOCATION: diffuse abdomen TECHNIQUE: Volumetric scanning of the abdomen and pelvis was performed. Using automated exposure control and ad justment of the mA and/or kV according to patient size, radiation dose was kept as low as reasonably achievable to obtain optimal diagnostic quality images. DICOM format image data is available electro nically for review and comparison. FINDINGS: Mild to moderate cardiomegaly with trace pleural effusion on the left There is no pericardial effusion The liver and spleen are unremarkable Trace free fluid in the abdomen The pancreas and adrenal glands appear normal There is no renal stone or mass Bowel and mesentery is unremarkable In the pelvis, diverticuli present without diverticulitis. Prostate is prominent. Abdominal christensen intact Review of bone windows reveals only degenerative changes. There degenerative changes about both SI j oints CONCLUSION: Trace free fluid in the abdomen. Cardiomegaly with trace left pleural effusion No inflammatory changes Garry Mccloud MD FACR on May 01, 2017 at 13:33 Board Certified Radiologist. This report was verified electronically.
[2017-05-01 13:47] LABS: INTERNATIONAL NORMALIZED RATIO 0.9 RATIO
[2017-05-01 14:10] LABS: BICARBONATE 10.8 MEQ/L (21.0-32.0); BLOOD UREA NITROGEN 39 MG/DL (7-18); CALCIUM 7.3 MG/DL (8.5-10.1); CHLORIDE 104 MEQ/L (98-107); CREATININE 6.02 MG/DL (0.60-1.30); GLOMERULAR FILTRATION RATE 12 ML/MIN (>89); GLUCOSE,RANDOM 84 MG/DL (74-106); MAGNESIUM 2.3 MG/DL (1.5-2.5); SODIUM (NA) 129 MEQ/L (136-145); TROPONIN I 0.04 NG/ML (0.02-0.05)
[2017-05-01 14:33] LABS: CALCIUM-PROTEIN CORRECTED 7.7 MG/DL (8.5-10.1); TOTAL PROTEIN 6.3 GM/DL (6.4-8.2)
[2017-05-01] MEDS ORDERED: CALCIUM GLUCONATE INJ 1 GM in DEXTROSE 5% IN WATER 100ML INJ 100 ML IV ONE ×2 (15:00)
[2017-05-01] MEDS ORDERED: PANTOPRAZOLE SODIUM 40 MG VIAL IV PUSH ONE (16:15)
[2017-05-01 16:20] VITALS: BP 170/90; PULSE 92; RESP 18; O2SAT 98
[2017-05-01] MEDS ORDERED: ONDANSETRON HCL 4 MG/2 ML VIAL IVP PRN (16:45)
[2017-05-01] MEDS ORDERED: ACETAMINOPHEN 325 MG TAB PO PRN (16:45)
[2017-05-01] MEDS ORDERED: NALOXONE HCL 0.4 MG/ML AMP IV PUSH PRN (16:45)
[2017-05-01] MEDS ORDERED: SODIUM CHLORIDE 0.9% FLUSH 10 ML FLUSH IV FLUSH PRN (16:45)
[2017-05-01] MEDS ORDERED: BISACODYL 10 MG SUPP RECTAL PRN (16:45)
[2017-05-01 18:00] VITALS: BP 172/93; PULSE 92; RESP 16; TEMP 98.3; O2SAT 98
[2017-05-01 18:16] LABS: ALBUMIN 2.4 GM/DL (3.4-5.0); ALKALINE PHOSPHATASE 76 U/L (45-117); ALT (GPT) 16 U/L (12-78); AST (GOT) 22 U/L (15-37); DIRECT BILIRUBIN ADULT LESS THAN 0.1 MG/DL (0.0-0.2); TOTAL BILIRUBIN ADULT 0.1 MG/DL (0.2-1.0)
[2017-05-01 20:00] VITALS: BP 179/87; PULSE 87; PULSE 92; RESP 20; TEMP 98.5; O2SAT 97
[2017-05-01] MEDS ORDERED: diphenhydrAMINE HCL 25 MG CAP PO ONE (20:30)
--- NOTE | 2017-05-01 20:35 | HHI.HP ---
[facility] Troy Emanuel MD Admission Diagnosis Symptomatic anemia, GI bleed, chest pain Diagnoses: Chief Complaint: Pain and abdominal pain Travel History International Travel<30 Days: No Contact w/Intl Traveler <30 Da: No Traveled to Known Affected Are: No History of Present Illness 57-year-old male with a history of COPD, hypertension, CAD, CHF presented to the ED with complaints of chest pain and abdominal pain. Patient states for the past 2-3 days he has been experiencing intermittent stabbing left-sided chest pain with radiation to his neck and back with associated right arm numbness. He also complains of intermittent burning abdominal pain, midepigastric with associated nausea and chills. He states in 2016 he had a catheterization with no intervention needed. He states the pain in both his chest and abdomen are worse with taking a deep breath and relieved by rest. He denies any fever, dizziness or headaches. He does state he has had dark- colored stools for the past few days. Denies any hematuria. 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 He does not follow with a curb attendant at this time Review of Systems Except as stated in HPI: all other systems reviewed are Neg Past Family Social History Past Medical History HTN CAD- on medical management heart murmur valvular heart dx by echo COPD BPH HLD CHF Past Surgical History colonoscopy coronary angiogram Reported Medications Reported Meds & Active Scripts Active Hydrochlorothiazide 12.5 Mg Cap 12.5 Mg PO DAILY Bumetanide 1 Mg Tab 1 Mg PO DAILY Neurontin (Gabapentin) 300 Mg Cap 300 Mg PO DAILY Norvasc (Amlodipine Besylate) 5 Mg Tab 10 Mg PO DAILY Coreg (Carvedilol) 12.5 Mg Tab 25 Mg PO BID Hydralazine (Hydralazine HCl) 100 Mg Tab 100 Mg PO TID Take with meals Atorvastatin (Atorvastatin Calcium) 80 Mg Tab 80 Mg PO HS Flexeril (Cyclobenzaprine HCl) 10 Mg Tab 10 Mg PO TID Flomax (Tamsulosin HCl) 0.4 Mg Cap 0.4 Mg PO HS 30 Days Clopidogrel (Clopidogrel Bisulfate) 75 Mg Tab 75 Mg PO DAILY Amlodipine (Amlodipine Besylate) 10 Mg Tab 10 Mg PO DAILY Vitamin D3 (Cholecalciferol) 1,000 Unit Tab 2,000 Units PO DAILY Aspirin EC (Aspirin) 81 Mg Tabdr 81 Mg PO DAILY Protonix (Pantoprazole Sodium) 40 Mg Tab 40 Mg PO DAILY Reported Gabapentin 600 Mg Tab 600 Mg PO TID Mirtazapine 15 Mg Tab 15 Mg PO HS Allergies: Coded Allergies: *MDRO Multi-Drug Resistant Organism (Verified Adverse Reaction, Unknown, ) 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 Active Ordered Medications Current Medications Medications (Trade) Dose Ordered Sig/Ramakrishna Route Start Time Stop Time Status Last Admin (NS Flush) 2 ml UNSCH PRN IV FLUSH 05/01/17 16:45 (NS Flush) 2 ml BID IV FLUSH 05/01/17 21:00 (Tylenol) 650 mg Q4H PRN PO 05/01/17 16:45 (Zofran Inj) 4 mg Q6H PRN IVP 05/01/17 16:45 (Narcan Inj) 0.4 mg UNSCH PRN IV PUSH 05/01/17 16:45 (Milk Of Magnesia Liq) 30 ml Q12H PRN PO 05/01/17 16:45 (Senokot) 17.2 mg Q12H PRN PO 05/01/17 16:45 (Dulcolax Supp) 10 mg DAILY PRN RECTAL 05/01/17 16:45 (Benadryl) 25 mg ONCE ONCE PO 05/01/17 20:30 05/01/17 20:31 UNV Family History mom-Crohns , dm, Physical Exam Vital Signs Vital Signs Date Time Temp Pulse Resp B/P (MAP) Pulse Ox O2 Delivery O2 Flow Rate FiO2 05/01/17 18:00 98.3 92 16 172/93 (119) 98 05/01/17 16:20 92 18 170/90 (116) 98 Room Air 05/01/17 12:45 92 18 99 Room Air 05/01/17 12:45 93 18 145/76 (99) 99 Room Air 05/01/17 12:23 98.7 111 16 158/68 (98) 97 Physical Exam GENERAL: This is a well-nourished, well-developed patient, in no apparent distress. SKIN: No rashes, ecchymoses or lesions. Cool and dry. HEAD: Atraumatic. Normocephalic. No temporal or scalp tenderness. EYES: Pupils equal round and reactive. ENT: Nose without bleeding, purulent drainage or septal hematoma. Airway patent. NECK: Trachea midline. No JVD or lymphadenopathy. CARDIOVASCULAR: Regular rate and rhythm without murmurs, gallops, or rubs. RESPIRATORY: Clear to auscultation. Breath sounds equal bilaterally. No wheezes , rales, or rhonchi. GASTROINTESTINAL: Abdomen soft, non-tender, nondistended. MUSCULOSKELETAL: No calf tenderness. Bilateral lower extremity edema +2 NEUROLOGICAL: Awake and alert.Motor and sensory grossly within normal limits. Five out of 5 muscle strength in all muscle groups. Normal speech. Laboratory Laboratory Tests Test 05/01/17 12:44 White Blood Count 12.8 Red Blood Count 2.20 Hemoglobin 7.6 Hematocrit 22.5 Mean Corpuscular Volume 101.9 Mean Corpuscular Hemoglobin 34.3 Mean Corpuscular Hemoglobin Concent 33.6 Red Cell Distribution Width 13.6 Platelet Count 361 Mean Platelet Volume 7.7 Neutrophils (%) (Auto) 68.3 Lymphocytes (%) (Auto) 22.7 Monocytes (%) (Auto) 5.2 Eosinophils (%) (Auto) 3.3 Basophils (%) (Auto) 0.5 Neutrophils # (Auto) 8.8 Lymphocytes # (Auto) 2.9 Monocytes # (Auto) 0.7 Eosinophils # (Auto) 0.4 Basophils # (Auto) 0.1 CBC Comment DIFF FINAL Differential Comment Prothrombin Time 9.0 Prothromb Time International Ratio 0.9 Activated Partial Thromboplast Time 27.0 Blood Urea Nitrogen 39 Creatinine 6.02 Random Glucose 84 Total Protein 6.3 Albumin 2.4 Calcium Level 7.3 Magnesium Level 2.3 Alkaline Phosphatase 76 Aspartate Amino Transf (AST/SGOT) 22 Alanine Aminotransferase (ALT/SGPT) 16 Total Bilirubin 0.1 Direct Bilirubin LESS THAN 0.1 Sodium Level 129 Potassium Level 5.0 Chloride Level 104 Carbon Dioxide Level 10.8 Anion Gap 14 Estimat Glomerular Filtration Rate 12 Protein Corrected Calcium 7.7 Indirect Bilirubin 0.0 Troponin I 0.04 B-Type Natriuretic Peptide 131 Lipase 417 Result Diagram: 05/01/17 1244 05/01/17 1244 Imaging Last Impressions Chest X-Ray 05/01/17 1240 Signed Impressions: Service Date/Time: Monday, May 01, 2017 13:02 - CONCLUSION: Normal examination. Remigio Bill MD Abdomen/Pelvis CT 05/01/17 0000 Signed Impressions: Service Date/Time: Monday, May 01, 2017 13:15 - CONCLUSION: Trace free fluid in the abdomen. Cardiomegaly with trace left pleural effusion No inflammatory changes Garry Mccloud MD FACR Caprini VTE Risk Assessment Caprini VTE Risk Assessment: Mod/High Risk (score >= 2) VTE Pharm Contraindication: High risk for bleeding Caprini Risk Assessment Model Point Value = 1 Point Value = 2 Point Value = 3 Point Value = 5 Age 41-60 Minor surgery BMI > 25 kg/m2 Swollen legs Varicose veins or History of unexplained or recurrent spontaneous Oral contraceptives or hormone replacement Sepsis (< 1 month) Serious lung disease, including pneumonia (< 1 month) Abnormal pulmonary function Acute myocardial infarction Congestive heart failure (< 1 month) History of inflammatory bowel disease Medical patient at bed rest Age 61-74 Arthroscopic surgery Major open surgery (> 45 min) Laparoscopic surgery (> 45 min) Malignancy Confined to bed (> 72 hours) Immobilizing plaster cast Central venous access Age >= 75 History of VTE Family history of VTE Factor V Leiden Prothrombin [id number] Lupus anticoagulant Anticardiolipin antibodies Elevated serum homocysteine Heparin-induced thrombocytopenia Other congenital or acquired thrombophilia Stroke (< 1 month) Elective arthroplasty Hip, pelvis, or leg fracture Acute spinal cord injury (< 1 month) Prophylaxis Regimen Total Risk Factor Score Risk Level Prophylaxis Regimen 0-1 Low Early ambulation 2 Moderate Order ONE of the following: *Sequential Compression Device (SCD) *Heparin 5000 units SQ BID 3-4 Higher Order ONE of the following medications: *Heparin 5000 units SQ TID *Enoxaparin/Lovenox 40 mg SQ daily (WT < 150 kg, CrCl > 30 mL/min) *Enoxaparin/Lovenox 30 mg SQ daily (WT < 150 kg, CrCl > 10-29 mL/min) *Enoxaparin/Lovenox 30 mg SQ BID (WT < 150 kg, CrCl > 30 mL/min) AND/OR *Sequential Compression Device (SCD) 5 or more Highest Order ONE of the following medications: *Heparin 5000 units SQ TID (Preferred with Epidurals) *Enoxaparin/Lovenox 40 mg SQ daily (WT < 150 kg, CrCl > 30 mL/min) *Enoxaparin/Lovenox 30 mg SQ daily (WT < 150 kg, CrCl > 10-29 mL/min) *Enoxaparin/Lovenox 30 mg SQ BID (WT < 150 kg, CrCl > 30 mL/min) AND *Sequential Compression Device (SCD) Assessment and Plan Problem List: (1) GI bleed ICD Code: K92.2 - Gastrointestinal hemorrhage, unspecified Status: Acute (2) CKD (chronic kidney disease) stage 5, GFR less than 15 ml/min ICD Code: N18.5 - Chronic kidney disease, stage 5 Status: Chronic Permanent Comment: Biopsy report from 03/10/16 showed 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 Last Edited By: Nita Marie on Oct 23, 2016 17:07 (3) Chest pain ICD Code: R07.9 - Chest pain, unspecified Status: Acute (4) Hypertension ICD Code: I10 - Essential (primary) hypertension Status: Chronic Assessment and Plan 57-year-old male with a history of COPD, hypertension, CAD, CHF presented to the ED with complaints of chest pain and abdominal pain. Chest pain, atypical likely secondary to symptomatic anemia Hemoglobin 7.2 troponin .02-->.06 EKG reviewed and shows sinus tach, no ST depression or elevation -Serial H&H, transfuse as needed -Rule out LAURA, serial troponin ordered -Monitor telemetry -Consult cardiology GI bleed Hemoglobin 7.2-->6.7 -Consult gastroenterology -Protonix drip -Patient made aware of hemoglobin 6.7 and is currently refusing a blood transfusion states next time we recheck it to let him know and he will decide then -Repeat H&H in 6 hours Acute on chronic Chronic kidney disease, stage V, creatinine 6.02 baseline 4-5 -Consult nephrology -Avoid nephrotoxins -Resumed home medications Hypertension, chronic -Resumed home medications, monitor vitals and adjust as accordingly DVT prophylaxis: SCDs, hold chemical prophylaxis due to GI bleed Discussed Condition With Patient MRN Physician Certification 2 Midnight Certification Type: Admission for Inpatient Services Order for Inpatient Services The services are ordered in accordance with Medicare regulations or non- Medicare payer requirements, as applicable. In the case of services not specified as inpatient-only, they are appropriately provided as inpatient services in accordance with the 2-midnight benchmark. Estimated LOS (days): 2 days is the estimated time the patient will need to remain in the hospital, assuming treatment plan goals are met and no additional complications. Post-Hospital Plan: Not yet determined Problem Qualifiers (1) GI bleed: Qualified Codes: K92.2 - Gastrointestinal hemorrhage, unspecified (2) Chest pain: Qualified Codes: R07.9 - Chest pain, unspecified Madeline Gutierrez May 01, 2017 20:35
[2017-05-01] MEDS: SODIUM CHLORIDE 0.9% FLUSH 10 ML FLUSH IV FLUSH SCH (21:00)
[2017-05-01] MEDS ORDERED: HYDR-3583 PO (22:34)
[2017-05-01] MEDS: CARVEDILOL 12.5 MG TAB PO SCH (23:00)
[2017-05-01] MEDS: MIRTAZAPINE 15 MG TAB PO SCH (23:00)
[2017-05-01] MEDS: TAMSULOSIN HCL 0.4 MG CAP PO SCH (23:00)
[2017-05-01] MEDS: ATORVASTATIN 80 MG TAB PO SCH (23:12)
[2017-05-01] MEDS: ACETAMINOPHEN/HYDROcodone 325 MG/10 MG TAB PO PRN (23:13)
[2017-05-01 23:43] LABS: HEMATOCRIT 19.3 % (39.0-51.0); HEMOGLOBIN 6.7 GM/DL (13.0-17.0)
[2017-05-01 23:58] LABS: TROPONIN I 0.06 NG/ML (0.02-0.05)
[2017-05-02] VITALS (12 sets, daily range): BP systolic 106–156; BP diastolic 53–73; PULSE 63–87; RESP 18–20; TEMP 97.4–98.6; O2SAT 96–99
[2017-05-02] MEDS ORDERED: PANTOPRAZOLE INJ 80 MG in SODIUM CHLORIDE 0.9% INJ 100 ML IV SCH (01:00)
[2017-05-02] MEDS: ACETAMINOPHEN/HYDROcodone 325 MG/10 MG TAB PO PRN ×4 (05:05→21:35)
[2017-05-02 06:07] LABS: AUTOMATED NEUTROPHIL # 5.5 TH/MM3 (1.8-7.7); BASOPHIL # 0.1 TH/MM3 (0-0.2); BASOPHIL % 1.1 % (0.0-2.0); EOSINOPHIL # 0.4 TH/MM3 (0-0.4); EOSINOPHIL % 4.9 % (0.0-4.0); LYMPH % 20.7 % (9.0-44.0); LYMPHOCYTE # 1.7 TH/MM3 (1.0-4.8); MEAN CELL VOLUME 100.4 FL (80.0-100.0); MEAN CORPUSCULAR HEMOGLOBIN 33.5 PG (27.0-34.0); MEAN CORPUSCULAR HGB CONC 33.4 % (32.0-36.0); MEAN PLATELET VOLUME 7.3 FL (7.0-11.0); MONO % 7.8 % (0.0-8.0); MONOCYTE # 0.7 TH/MM3 (0-0.9); NEUT % 65.5 % (16.0-70.0); PLATELET COUNT 283 TH/MM3 (150-450); RED BLOOD COUNT 1.91 MIL/MM3 (4.50-5.90); RED CELL DISTRIBUTION WIDTH 13.3 % (11.6-17.2); WHITE BLOOD COUNT 8.4 TH/MM3 (4.0-11.0)
[2017-05-02 06:23] LABS: HEMATOCRIT 19.2 % (39.0-51.0); HEMOGLOBIN 6.4 GM/DL (13.0-17.0)
[2017-05-02 06:27] LABS: BICARBONATE 14.9 MEQ/L (21.0-32.0); CALCIUM 7.3 MG/DL (8.5-10.1); CREATININE 6.04 MG/DL (0.60-1.30)
[2017-05-02 06:39] LABS: CALCIUM-PROTEIN CORRECTED 8.3 MG/DL (8.5-10.1); TOTAL PROTEIN 5.3 GM/DL (6.4-8.2)
[2017-05-02] MEDS: CARVEDILOL 12.5 MG TAB PO SCH ×2 (08:00→21:34)
[2017-05-02] MEDS: amLODIPine BESYLATE 5 MG TAB PO SCH (08:00)
[2017-05-02] MEDS: hydrALAZINE HCL 100 MG TAB PO SCH ×3 (08:00→17:52)
[2017-05-02] MEDS: GABAPENTIN 300 MG CAP PO SCH ×3 (08:01→17:52)
[2017-05-02] MEDS ORDERED: BUMETANIDE 1 MG TAB PO SCH (09:00)
[2017-05-02] MEDS ORDERED: PANTOPRAZOLE SOD 40 MG DELAYED RELEASE TAB PO SCH (09:00)
[2017-05-02] MEDS ORDERED: RESP: ALBUTEROL CONC 2.5 MG/0.5 ML NEB INH ONE (09:00)
[2017-05-02] MEDS ORDERED: ASPIRIN EC 81 MG TABEC PO SCH (09:00)
[2017-05-02] MEDS ORDERED: CLOPIDOGREL 75 MG TAB PO SCH (09:00)
[2017-05-02] MEDS ORDERED: HYDROCHLOROTHIAZIDE 12.5 MG CAP PO SCH (09:00)
[2017-05-02] MEDS: SODIUM POLYSTYRENE SULFONATE SUSP 15 GM/60 ML CUP PO SCH ×4 (09:21→21:36)
[2017-05-02] MEDS: SODIUM CHLORIDE 0.9% FLUSH 10 ML FLUSH IV FLUSH SCH ×2 (09:27→21:34)
[2017-05-02] MEDS ORDERED: diphenhydrAMINE HCL 25 MG CAP PO PRN (09:30)
[2017-05-02] MEDS ORDERED: SODIUM CHLOR 0.9% 250 ML INJ 250 ML IV ONE (09:30)
[2017-05-02] MEDS ORDERED: ACETAMINOPHEN 325 MG TAB PO PRN (09:30)
[2017-05-02] MEDS: INSULIN REGULAR IV SCH ×2 (09:40→10:01)
[2017-05-02] MEDS: DEXTROSE 10% IV SCH ×2 (09:40→10:01)
[2017-05-02] MEDS ORDERED: INFLUENZA VIRUS VACCINE (QUADRIVALENT) 0.5 ML SYR IM ONE (10:00)
[2017-05-02] MEDS: PANTOPRAZOLE SOD 40 MG DELAYED RELEASE TAB PO SCH ×2 (10:24→21:34)
--- NOTE | 2017-05-02 11:18 | MB ---
cc: Anish Perez MD DATE OF CONSULT: REASON FOR CONSULTATION: Chest pain, abnormal troponin level. HISTORY OF PRESENT ILLNESS: The patient is a 57-year-old -Indian male with a history of prior alcohol abuse, hypertension, coronary artery disease, chronic renal insufficiency, wide complex tachycardia seen on monitoring last year, mild to moderate aortic stenosis, who presented to the hospital with a two day history of left-sided chest "tightness". There has been no associated shortness of breath, nausea or diaphoresis. The chest discomfort has no relationship to exertion. Troponin levels were checked and found to be slightly abnormal. The patient states the chest discomfort has been present in a constant fashion most of the last two days. He has not been able to identify any worsening or alleviating factors. He denies pleurisy, syncope, near syncope, palpitations, pedal edema, paroxysmal nocturnal dyspnea. Rarely he experiences brief lightheadedness. He reports compliance with his medications. PAST MEDICAL HISTORY: 1. Prior alcohol abuse 2. Hypertension 3. Coronary artery disease with heart catheterization 10/10/2015 showing 20% proximal right coronary artery stenosis, 10-20% mid left circumflex disease, 20% proximal second obtuse marginal stenosis, 10-20% proximal to mid LAD disease, 50-60% ostial diagonal. 4. Hyperlipidemia. 5. Chronic renal insufficiency. 6. Wide complex tachycardia demonstrated February 2016, treated medically. 7. Mild to moderate aortic stenosis demonstrated by echo 09/16/16, at which time the mean transvalvular aortic gradient was 22 mmHg, possibly with a bicuspid aortic valve. CARDIAC MEDICATIONS AT HOME: 1. Aspirin 81 mg daily 2. Amlodipine 10 mg daily 3. Plavix 75 mg daily 4. Atorvastatin 80 mg at night 5. Hydralazine 100 mg three times a day 6. Carvedilol 25 mg twice a day 7. Bumetanide 1 mg daily 8. Hydrochlorothiazide 12.5 mg daily ALLERGIES: NO KNOWN DRUG ALLERGIES FAMILY HISTORY: There is no significant family history of early myocardial infarction. SOCIAL HISTORY: The patient is a former smoker. He denies recent alcohol abuse. REVIEW OF SYSTEMS: As in the history of present illness, otherwise negative or noncontributory. He also denies headache, abdominal pain, melena, dyspepsia, bright red blood per rectum, recent flu. PHYSICAL EXAMINATION: VITAL SIGNS: Blood pressure 143/73 with a pulse of 67, respirations 18. GENERAL: He is a well-developed, well-nourished -Indian male, in no acute distress. HEENT: Jugular venous pressure is normal. Carotid pulses are 2+ bilaterally and without bruits. CHEST: Clear lung crum. CARDIAC: He has a regular rhythm and rate without S3, S4. There is a grade 2/6 systolic ejection murmur heard throughout the precordium, heard best at the base of the heart. The S2 heart sound is mildly diminished. ABDOMEN: He has a soft, nontender abdomen. Bowel sounds are present. There is no definite hepatosplenomegaly. EXTREMITIES: Reveals no clubbing, cyanosis or edema. EKG: From 05/01/2017 shows sinus tachycardia, left atrial abnormality. LABORATORY DATA: Hemoglobin 6.4, platelets 283, potassium 6.3, WBC 8.4, BUN 44, creatinine 6.04, troponin 0.06, INR 0.9. IMAGING STUDIES: Chest x-ray shows no acute disease. IMPRESSION: Exceedingly atypical chest pain in this 57-year-old -Indian male with a history of hypertension, coronary artery disease, hyperlipidemia, chronic renal insufficiency, mild to moderate aortic stenosis, wide complex tachycardia. Despite constant chest discomfort for at least the last 48 hours, CK is negative for myocardial infarction. EKGs show no acute ST-segment or T-wave changes. The slight elevations in troponin levels are likely due to his renal insufficiency, possibly demand ischemia caused by his severe anemia. The patient also had a nuclear stress test 03/10/2016 which was normal. Needless to say the patient is not a good candidate for invasive cardiac evaluation at this time with his renal insufficiency and severe anemia. RECOMMENDATIONS: 1. Continue his usual home cardiac medications. 2. Will followup as needed. MD CAT Caceres/RAY/celia , 10:04 AM , 10:34 AM SUNITA
--- NOTE | 2017-05-02 11:33 | PD.CONS ---
HPI History of Present Illness This is a 57 year old male with CAD, CKD on HD who presented with chest pain and abd pain. He was found to have elevated troponins, mildly elevated lipase. He admits epigastric pain intermittently over the last year. He has had dark stools for the last week. Denies n/v. Had colonoscopy with finding polyps and diveticulosis and normal EGD in 2016 at [facility] [place] Knox. Pt is poor historian. (Kaley Robertson) PFSH Past Medical History HTN CAD- on medical management heart murmur valvular heart dx by echo COPD BPH HLD CHF Past Surgical History colonoscopy coronary angiogram (Kaley Robertson) Coded Allergies: *MDRO Multi-Drug Resistant Organism (Verified Adverse Reaction, Unknown, ) 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 Family History mom-Crohns , dm, Social History denies etoh, tobacco, drug use (Klaey Robertson) Review of Systems Constitutional: COMPLAINS OF: Fatigue Endocrine: DENIES: Polydipsia Eyes: DENIES: Blurred vision Ears, nose, mouth, throat: DENIES: Hearing loss Respiratory: DENIES: Cough Cardiovascular: COMPLAINS OF: Chest pain Gastrointestinal: COMPLAINS OF: Abdominal pain, Black stools, DENIES: Nausea, Vomiting Genitourinary: DENIES: Urinary incontinence Musculoskeletal: DENIES: Joint pain Integumentary: DENIES: Abnormal pigmentation Hematologic/lymphatic: DENIES: Bruising Immunologic/allergic: DENIES: Eczema Neurologic: DENIES: Headache Psychiatric: DENIES: Anxiety (Kaley Robertson) GI Exam Vitals I&O Vital Signs Date Time Temp Pulse Resp B/P (MAP) Pulse Ox O2 Delivery O2 Flow Rate FiO2 05/02/17 09:34 97 Nasal Cannula 3.00 05/02/17 08:07 68 05/02/17 08:05 98.4 67 18 143/73 (96) 98 05/02/17 08:05 Room Air 05/02/17 04:00 Room Air 05/02/17 04:00 69 05/02/17 04:00 98.4 67 20 148/72 (97) 98 05/02/17 00:00 97 Room Air 05/02/17 00:00 87 05/02/17 00:00 98.6 83 18 156/73 (100) 97 05/01/17 21:00 97 Room Air 05/01/17 20:00 87 05/01/17 20:00 98.5 92 20 179/87 (117) 97 05/01/17 18:00 98.3 92 16 172/93 (119) 98 05/01/17 16:20 92 18 170/90 (116) 98 Room Air 05/01/17 12:45 92 18 99 Room Air 05/01/17 12:45 93 18 145/76 (99) 99 Room Air 05/01/17 12:23 98.7 111 16 158/68 (98) 97 I/O 05/01/17 05/01/17 05/01/17 05/02/17 05/02/17 05/02/17 07:00 15:00 23:00 07:00 15:00 23:00 Intake Total 276.5 ml Output Total 451 ml Balance -174.5 ml Intake Oral 240 ml IV Total 36.5 ml Output Urine Total 450 ml Stool Total 1 ml Imaging Last Impressions Chest X-Ray 05/01/17 1240 Signed Impressions: Service Date/Time: Monday, May 01, 2017 13:02 - CONCLUSION: Normal examination. Remigio Bill MD Abdomen/Pelvis CT 05/01/17 0000 Signed Impressions: Service Date/Time: Monday, May 01, 2017 13:15 - CONCLUSION: Trace free fluid in the abdomen. Cardiomegaly with trace left pleural effusion No inflammatory changes Garry Mccloud MD FACR Laboratory Test 05/01/17 12:44 05/01/17 23:29 05/02/17 05:33 White Blood Count 12.8 TH/MM3 8.4 TH/MM3 Red Blood Count 2.20 MIL/MM3 1.91 MIL/MM3 Hemoglobin 7.6 GM/DL 6.7 GM/DL 6.4 GM/DL Hematocrit 22.5 % 19.3 % 19.2 % Mean Corpuscular Volume 101.9 FL 100.4 FL Mean Corpuscular Hemoglobin 34.3 PG 33.5 PG Mean Corpuscular Hemoglobin Concent 33.6 % 33.4 % Red Cell Distribution Width 13.6 % 13.3 % Platelet Count 361 TH/MM3 283 TH/MM3 Mean Platelet Volume 7.7 FL 7.3 FL Neutrophils (%) (Auto) 68.3 % 65.5 % Lymphocytes (%) (Auto) 22.7 % 20.7 % Monocytes (%) (Auto) 5.2 % 7.8 % Eosinophils (%) (Auto) 3.3 % 4.9 % Basophils (%) (Auto) 0.5 % 1.1 % Neutrophils # (Auto) 8.8 TH/MM3 5.5 TH/MM3 Lymphocytes # (Auto) 2.9 TH/MM3 1.7 TH/MM3 Monocytes # (Auto) 0.7 TH/MM3 0.7 TH/MM3 Eosinophils # (Auto) 0.4 TH/MM3 0.4 TH/MM3 Basophils # (Auto) 0.1 TH/MM3 0.1 TH/MM3 CBC Comment DIFF FINAL DIFF FINAL Differential Comment Prothrombin Time 9.0 SEC Prothromb Time International Ratio 0.9 RATIO Activated Partial Thromboplast Time 27.0 SEC Blood Urea Nitrogen 39 MG/DL 44 MG/DL Creatinine 6.02 MG/DL 6.04 MG/DL Random Glucose 84 MG/DL 81 MG/DL Total Protein 6.3 GM/DL 5.3 GM/DL Albumin 2.4 GM/DL Calcium Level 7.3 MG/DL 7.3 MG/DL Magnesium Level 2.3 MG/DL Alkaline Phosphatase 76 U/L Aspartate Amino Transf (AST/SGOT) 22 U/L Alanine Aminotransferase (ALT/SGPT) 16 U/L Total Bilirubin 0.1 MG/DL Direct Bilirubin LESS THAN 0.1 MG/DL Sodium Level 129 MEQ/L 133 MEQ/L Potassium Level 5.0 MEQ/L 6.3 MEQ/L Chloride Level 104 MEQ/L 109 MEQ/L Carbon Dioxide Level 10.8 MEQ/L 14.9 MEQ/L Anion Gap 14 MEQ/L 9 MEQ/L Estimat Glomerular Filtration Rate 12 ML/MIN 12 ML/MIN Protein Corrected Calcium 7.7 MG/DL 8.3 MG/DL Indirect Bilirubin 0.0 MG/DL Troponin I 0.04 NG/ML 0.06 NG/ML B-Type Natriuretic Peptide 131 PG/ML Lipase 417 U/L Total Creatine Kinase 137 U/L Physical Examination HEENT: PERRL; normocephalic; atraumatic; no jaundice. CHEST: CTA CARDIAC: RRR +murmur ABDOMEN: Soft,obese, epigastric TTP, no hepatosplenomegaly; bowel sounds are present in all four quadrants. EXTREMITIES: No clubbing, cyanosis, or edema. SKIN: Normal; no rash; no jaundice. HEAD SHIPPER: lethargic (Kaley Robertson) Assessment and Plan Plan ASSESSMENT - epigastric pain, elevated lipase- unclear etiology pancreatitis vs gastritis vs PUD. lipase [address] abd shows trace free fluid abd, pancreas normal - black tarry stool, anemia - questionable UGIB. anemia is marcocytic. likely anemia is multifactorial as pt has CKD as well. pt had normal EGD and colonoscopy with finding polyps and diverticulosis in 2016. - elevated troponin, cardiac consult pending - CKD V nephrology consult pending PLAN - EGD tomorrow - D/W primary, he is cleared for EGD - obtain consent - monitor lipase - clear liquids for now, advance as tolerated - NPO after midnight - monitor HH - transfuse as needed - notify GI of active bleeding - further recs to follow pt seen by myself and Dr Downing and this note is on his behalf (Kaley Robertson) Physician Comments Seen and examined, plan as above, will proceed with EGD in am. Thank you for the consult. (Capo Downing MD) Kaley Robertson May 02, 2017 11:33 Capo Downing MD May 02, 2017 14:13
--- NOTE | 2017-05-02 14:06 | HHI.PR ---
Subjective Remarks Follow-up for symptomatic anemia, worsening kidney disease. Patient is currently resting in bed. No acute concerns. He initially refused blood transfusion. However after discussing with him further, he agrees to blood transfusion. He inquires about possible EGD and the timing of it. Objective Vitals Vital Signs Date Time Temp Pulse Resp B/P (MAP) Pulse Ox O2 Delivery O2 Flow Rate FiO2 05/02/17 12:05 97.8 63 18 106/58 (74) 96 05/02/17 09:34 97 Nasal Cannula 3.00 05/02/17 08:07 68 05/02/17 08:05 98.4 67 18 143/73 (96) 98 05/02/17 08:05 Room Air 05/02/17 04:00 Room Air 05/02/17 04:00 69 05/02/17 04:00 98.4 67 20 148/72 (97) 98 05/02/17 00:00 97 Room Air 05/02/17 00:00 87 05/02/17 00:00 98.6 83 18 156/73 (100) 97 05/01/17 21:00 97 Room Air 05/01/17 20:00 87 05/01/17 20:00 98.5 92 20 179/87 (117) 97 05/01/17 18:00 98.3 92 16 172/93 (119) 98 05/01/17 16:20 92 18 170/90 (116) 98 Room Air I/O 05/01/17 05/01/17 05/01/17 05/02/17 05/02/17 05/02/17 06:59 14:59 22:59 06:59 14:59 22:59 Intake Total 276.5 ml 563.6 ml Output Total 451 ml Balance -174.5 ml 563.6 ml Intake Oral 240 ml IV Total 36.5 ml 563.6 ml Output Urine Total 450 ml Stool Total 1 ml Result Diagram: 05/02/17 0533 05/02/17 0533 Imaging Last Impressions Chest X-Ray 05/01/17 1240 Signed Impressions: Service Date/Time: Monday, May 01, 2017 13:02 - CONCLUSION: Normal examination. Remigio Bill MD Abdomen/Pelvis CT 05/01/17 0000 Signed Impressions: Service Date/Time: Monday, May 01, 2017 13:15 - CONCLUSION: Trace free fluid in the abdomen. Cardiomegaly with trace left pleural effusion No inflammatory changes Garry Mccloud MD FACR Objective Remarks GENERAL: Alert, oriented 3, NAD. Flat affect. SKIN: Warm and dry. HEAD: Normocephalic. EYES: No scleral icterus. No injection or drainage. NECK: Supple, trachea midline. No JVD or lymphadenopathy. CARDIOVASCULAR: Regular rate and rhythm without murmurs, gallops, or rubs. RESPIRATORY: Breath sounds equal bilaterally. No accessory muscle use. GASTROINTESTINAL: Abdomen soft, non-tender, nondistended. MUSCULOSKELETAL: No cyanosis, or edema. BACK: Nontender without obvious deformity. No CVA tenderness. 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 Last Edited By: Nita Marie on Oct 23, 2016 17:07 (3) Chest pain ICD Code: R07.9 - Chest pain, unspecified Status: Acute (4) Hypertension ICD Code: I10 - Essential (primary) hypertension Status: Chronic Assessment and Plan 57-year-old male with a history of COPD, hypertension, CAD, CHF presented to the ED with complaints of chest pain and abdominal pain. ED workup indicated worsening renal function. He also had globin 6.7 and repeat hemoglobin 6.4. -Acute GI blood loss anemia -Hemoglobin 6.4. After discussing with patient he agrees with 1 unit of transfusion. -We will order 1 unit of transfusion today. Discussed with GI requests cardiac clearance. Possible EGD in the morning. -I discussed with physical therapist aide Dr. Perez at 2PM on 05/02/2017 who has no reservation with going forward with EGD. -DC Protonix drip and start Protonix p.o. 40 mg twice daily. Avoid nephrotoxins. -Mild elevation in troponin -Likely due to anemia as well as renal failure. -Appreciate cardiology input. No further workup at this point. -Hypokalemia potassium 6.3 -Acute kidney injury -CKD stage V -We will consult nephrology. Patient may likely need dialysis. -We will administer albuterol, D10 plus insulin, Kayexalate for hyperkalemia. -Repeat BMP in the morning -Hypertension -Hyperlipidemia -History of pacemaker placement -Continue amlodipine 10 mg daily, Bumex 1 mg daily, carvedilol 25 mg p.o. twice daily. Continue HCTZ 12.5 mg daily and hydralazine 100 mg 3 times daily -Continue atorvastatin 80 mg p.o. nightly. Full code. SCDs. Telemetry due to hyperkalemia. Problem Qualifiers (1) GI bleed: Qualified Codes: K92.2 - Gastrointestinal hemorrhage, unspecified (2) Chest pain: Qualified Codes: R07.9 - Chest pain, unspecified Andreas Arteaga DO May 02, 2017 14:06
--- NOTE | 2017-05-02 14:58 | MB ---
cc: Rory Davidson MD DATE OF CONSULT: REASON FOR CONSULTATION: Elevated BUN and creatinine for evaluation. HISTORY OF PRESENT ILLNESS: This is a 57-year-old male with a past medical history of hypertension, history of chronic kidney disease, chronic obstructive pulmonary disease, ischemic heart disease, benign prostatic hypertrophy, congestive heart failure, came to the hospital with complaint of chest pain and generalized weakness. I was called to see the patient because of elevated BUN and creatinine. Patient has been following with Dr. Marie in the past and Dr. Marie refused to follow him as outpatient and patient has advanced renal disease. His GFR in the past has been in the range of 11-16. This was in October and now, he came with a creatinine of 6.0 and the GFR of 12. Patient has generalized weakness. He has decreased appetite, has off and on nausea, vomiting for last 2-3 days and has retrosternal chest pain. He denies any blood in the vomitus, but he has dark stool for last few days, and it was found that he has low hemoglobin. Hemoglobin was 7.6 on admission, which dropped to 6.4. He denies any dysuria, hematuria. Did not notice any decrease in the urine output. Patient was also found to have metabolic acidosis and hyperkalemia. He denies taking any nonsteroid antiinflammatory drugs. PAST MEDICAL HISTORY: Hypertension, ischemic heart disease, congestive heart failure, chronic obstructive pulmonary disease, chronic kidney disease, chronic anemia. PAST SURGICAL HISTORY: History of colonoscopy, coronary angiography, history of cath placement and was on dialysis for 5 weeks in 1991, as per patient. SOCIAL HISTORY: Past history of smoking. There is no history of alcoholism. FAMILY HISTORY: Noncontributory. Denies any known family history of renal disease. ALLERGIES: HE HAS NO KNOWN DRUG ALLERGIES. MEDICATIONS: Currently, he is on following medications: Insulin IV, carvedilol 25 b.i.d., amlodipine 10 mg once a day, bumetanide 1 mg daily, hydrochlorothiazide 12.5 mg daily, Lipitor 80 mg at bedtime, Remeron 30 mg at bedtime, Flomax 0.4 mg at bedtime, Protonix 40 mg q.12 hour, Kayexalate 15 g q.i.d., Neurontin 600 mg t.i.d., 100 mg t.i.d., Zofran as needed. On examination, patient is awake, alert. He is not in acute distress. His last blood pressure is 106/58. Temperature is 97.8, oxygen saturation 96% to 97%. HEENT: Pupils are mid constricted, nonicteric sclerae, conjunctivae pale. NECK: Supple. JVD is slightly elevated. LUNGS: Patient has bilateral decreased air entry with few basilar rales. HEART: S1, S2, regular rhythm. There is some puffiness around his eyes. ABDOMEN: Soft, lax. There is mild epigastric tenderness. There is no rebound or rigidity. Bowel sounds positive. EXTREMITIES: He has mild edema in the legs. INVESTIGATIONS: WBC count is 8.4, hemoglobin 6.4, plate count of 283. Neutrophils 65.5%, eosinophils 4.9%. Sodium 133, potassium 6.3, chloride 109, bicarb 14.9, BUN 44. Creatinine is 6.0. Calcium corrected is 8.3. Total protein is 5.3. Albumin is 2.4. AST 22, ALT 16. Lipase was 417. INR 0.9. Urinalysis showing protein of 300. This was done in September. Previously, he has elevated free kappa chain. This was in February. The level was 107 lambda chain. IMAGING STUDY: Patient had chest x-ray done, which shows that he has normal examination. Lung field was clear. CT scan of the abdomen and pelvis was done, which shows moderate cardiomegaly, no pericardial effusion, cardiomegaly, diverticula present without diverticulosis. Ultrasound of the kidney was done in September of last year, and it shows that he has normal size kidneys with no evidence of obstructive renal uropathy with increased echogenicity. ASSESSMENT AND PLAN: 1. Chronic kidney disease with advanced renal disease. 2. Hyperkalemia and metabolic acidosis. 3. Chest pain. 4. Severe anemia and gastrointestinal bleeding. 5. Hypotension. 6. Ischemic heart disease and congestive heart failure. Patient has advanced renal disease, possibly reaching the end stage and maybe will need dialysis. His potassium is high. He was given the treatment for hyperkalemia including the Kayexalate, and I will give him sodium bicarbonate, increase his Bumex, and follow his BUN and creatinine. For anemia, he is getting the blood transfusion. I will also get the iron studies. If there is no improvement, I will talk to him again about possibility of dialysis. I did discuss with him briefly about it. Thank you for the consultation. I will follow the patient while he is in the hospital. MD YOLIS Rausch/LB , 02:15 PM , 02:57 PM
[2017-05-02 15:24] LABS: TROPONIN I 0.03 NG/ML (0.02-0.05)
[2017-05-02] MEDS: SODIUM BICARBONATE 650 MG TAB PO SCH ×2 (16:27→21:35)
[2017-05-02] MEDS: FUROSEMIDE 40 MG/4 ML VIAL IV PUSH SCH (17:52)
[2017-05-02] MEDS: TAMSULOSIN HCL 0.4 MG CAP PO SCH (21:34)
[2017-05-02] MEDS: MIRTAZAPINE 15 MG TAB PO SCH (21:34)
[2017-05-02] MEDS: ATORVASTATIN 80 MG TAB PO SCH (21:36)
[2017-05-03] VITALS (7 sets, daily range): BP systolic 112–145; BP diastolic 62–89; PULSE 71–82; RESP 18–20; TEMP 97.1–98.5; O2SAT 73–99
[2017-05-03] MEDS: ACETAMINOPHEN/HYDROcodone 325 MG/10 MG TAB PO PRN ×5 (01:34→20:55)
[2017-05-03] MEDS: SODIUM BICARBONATE 650 MG TAB PO SCH ×3 (05:26→20:57)
[2017-05-03 06:55] LABS: % SATURATION IRON PROFILE 32.5 % (20-50); BICARBONATE 16.5 MEQ/L (21.0-32.0); BLOOD UREA NITROGEN 46 MG/DL (7-18); CALCIUM 7.3 MG/DL (8.5-10.1); CHLORIDE 110 MEQ/L (98-107); CREATININE 6.61 MG/DL (0.60-1.30); FERRITIN 258 NG/ML (26-388); GLOMERULAR FILTRATION RATE 11 ML/MIN (>89); GLUCOSE,RANDOM 74 MG/DL (74-106); IRON (FE) 56 MCG/DL (65-175); PHOSPHORUS 8.6 MG/DL (2.5-4.9); SODIUM (NA) 136 MEQ/L (136-145); TOTAL IRON BINDING CAPACITY 172 MCG/DL (250-450)
[2017-05-03 07:23] LABS: CALCIUM-PROTEIN CORRECTED 8.2 MG/DL (8.5-10.1); TOTAL PROTEIN 5.5 GM/DL (6.4-8.2)
[2017-05-03] MEDS: INSULIN REGULAR IV SCH ×2 (08:23→09:24)
[2017-05-03] MEDS: DEXTROSE 10% IV SCH ×2 (08:23→09:24)
[2017-05-03] MEDS: hydrALAZINE HCL 100 MG TAB PO SCH ×3 (08:26→17:49)
[2017-05-03] MEDS: GABAPENTIN 300 MG CAP PO SCH ×2 (08:26→11:55)
[2017-05-03] MEDS: amLODIPine BESYLATE 5 MG TAB PO SCH (08:26)
[2017-05-03] MEDS: CARVEDILOL 12.5 MG TAB PO SCH ×2 (08:26→20:56)
[2017-05-03] MEDS: FUROSEMIDE 40 MG/4 ML VIAL IV PUSH SCH ×2 (08:26→17:50)
[2017-05-03] MEDS: PANTOPRAZOLE SOD 40 MG DELAYED RELEASE TAB PO SCH ×2 (08:26→20:56)
[2017-05-03] MEDS: SODIUM CHLORIDE 0.9% FLUSH 10 ML FLUSH IV FLUSH SCH ×2 (08:26→20:57)
[2017-05-03] MEDS ORDERED: METOPROLOL TARTRATE 25 MG TAB ONE (08:35)
--- NOTE | 2017-05-03 09:34 | GIPROC ---
[facility] [address] [facility]. [facility], [address] EGD PROCEDURE REPORT EXAM DATE: 05/03/2017 PATIENT NAME: Denilson Stiles MR #: [id number] BIRTHDATE: 1960 ATTENDING: Capo Downing MD ORDER #: [id number] EQUITY DIRECTOR: Jose Anthony and Lupe Harding STATUS: inpatient INDICATIONS: The patient is a 57 yr old male here for an EGD due to anemia PROCEDURE PERFORMED: EGD w/ biopsy MEDICATIONS: None and Per Anesthesia. TOPICAL ANESTHETIC: none CONSENT: The patient understands the risks and benefits of the procedure and understands that these risks include, but are not limited to: sedation, allergic reaction, infection, perforation and/or bleeding. Alternative means of evaluation and treatment include, among others: physical exam, x-rays, and/or surgical intervention. The patient elects to proceed with this endoscopic procedure. medical equipment was checked for proper function. Hand hygiene and appropriate measures for infection prevention was taken. After the risks, benefits and alternatives of the procedure were thoroughly explained, Informed consent was verified, confirmed and timeout was successfully executed by the treatment team. The patient was anesthetized with topical anesthesia and the Pentax [id number] endoscope was introduced through the mouth and advanced to the second portion of the duodenum. Retroflexion was performed and was normal The gastroscope was then slowly withdrawn and removed. ESOPHAGUS: The esophagus was otherwise normal. STOMACH: There was erythematous moderate gastritis in the gastric antrum. Multiple biopsies were performed using cold forceps. Sample sent for histology. DUODENUM: Moderate duodenal inflammation was found in the duodenal bulb. The duodenal mucosa appeared normal in the 2nd part of the duodenum. ADVERSE EVENTS: There were no complications. IMPRESSIONS: 1. The esophagus was otherwise normal 2. There was erythematous gastritis in the gastric antrum; multiple biopsies were performed 3. Duodenal inflammation was found in the duodenal bulb 4. Normal duodenal mucosa in the 2nd part of the duodenum 5. Retroflexion was performed and was normal RECOMMENDATIONS: 1. Await biopsy results. Biopsy results will not be ready for 7-10 days. If you don't hear from us in two weeks, call our office for biopsy results. 2. Continue PPI PATIENT CONDITION: stable DISPOSITION: Observation REPEAT EXAM: NONE Capo Downing MD eSigned: Capo Downing MD 05/03/2017 9:33 AM cc: PATIENT NAME: Denilson Stiles MR#: [id number]
[2017-05-03] MEDS ORDERED: INSULIN HUMAN REGULAR 1,000 UNITS/10 ML VIAL SQ PRN (10:00)
[2017-05-03] MEDS ORDERED: CHLORHEXIDINE GLUCONATE 2 % 1 PACK (2 CLOTHS) TOPICAL PRN (10:00)
[2017-05-03] MEDS ORDERED: POVIDONE IODINE 5% (ANTISEPSIS KIT) 4 APPLICATIONS EACH NARE PRN (10:00)
[2017-05-03] MEDS ORDERED: SODIUM CHLORID 0.9% 500 ML IV PRN (10:00)
[2017-05-03] MEDS ORDERED: LACTATED RINGER'S 1000 ML IV PRN (10:00)
[2017-05-03] MEDS ORDERED: METOPROLOL TARTRATE 25 MG TAB PO PRN (10:00)
[2017-05-03 11:43] LABS: BASOPHIL # 0.1 TH/MM3 (0-0.2); BASOPHIL % 0.6 % (0.0-2.0); EOSINOPHIL # 0.6 TH/MM3 (0-0.4); EOSINOPHIL % 6.7 % (0.0-4.0); HEMATOCRIT 24.1 % (39.0-51.0); HEMOGLOBIN 8.1 GM/DL (13.0-17.0); LYMPH % 13.2 % (9.0-44.0); LYMPHOCYTE # 1.2 TH/MM3 (1.0-4.8); MEAN CELL VOLUME 97.8 FL (80.0-100.0); MEAN CORPUSCULAR HEMOGLOBIN 32.9 PG (27.0-34.0); MEAN CORPUSCULAR HGB CONC 33.6 % (32.0-36.0); MEAN PLATELET VOLUME 7.3 FL (7.0-11.0); MONO % 4.6 % (0.0-8.0); MONOCYTE # 0.4 TH/MM3 (0-0.9); NEUT % 74.9 % (16.0-70.0); PLATELET COUNT 303 TH/MM3 (150-450); RED BLOOD COUNT 2.46 MIL/MM3 (4.50-5.90); WHITE BLOOD COUNT 9.3 TH/MM3 (4.0-11.0)
[2017-05-03] MEDS ORDERED: PROPOFOL 200 MG/20 ML AMP IV ONE (12:00)
[2017-05-03] MEDS ORDERED: LIDOCAINE HCL 1% PF 5 ML SYRINGE OTHER ONE (12:00)
[2017-05-03] MEDS ORDERED: PHENYLEPH/NS 1000 MCG/10 ML SYR IV ONE (12:00)
[2017-05-03 12:11] LABS: BICARBONATE 17.3 MEQ/L (21.0-32.0); CALCIUM 7.7 MG/DL (8.5-10.1); CREATININE 6.72 MG/DL (0.60-1.30)
--- NOTE | 2017-05-03 14:49 | HHI.PR ---
Subjective Remarks Follow up renal failure, anemia. Patient states that he feels tired. He reports pain in his neck "from a pinched nerve that is flaring up". He also reports chest pain with coughing. Objective Vitals Vital Signs Date Time Temp Pulse Resp B/P (MAP) Pulse Ox O2 Delivery O2 Flow Rate FiO2 05/03/17 12:00 77 05/03/17 12:00 98.4 79 18 145/75 (98) 95 05/03/17 09:41 97.6 70 16 141/77 (98) 97 05/03/17 08:28 99.5 72 18 141/79 (99) 98 05/03/17 08:00 74 05/03/17 08:00 98.1 73 18 112/62 (79) 73 05/03/17 07:31 Room Air 05/03/17 04:00 71 05/03/17 03:39 98.2 72 18 128/64 (85) 98 05/03/17 00:00 97.1 71 20 124/80 (95) 98 05/03/17 00:00 73 05/02/17 20:00 71 05/02/17 20:00 97.5 68 20 116/62 (80) 99 05/02/17 20:00 Room Air 05/02/17 16:34 97.9 69 20 120/61 99 05/02/17 16:18 97.4 67 20 127/58 97 05/02/17 16:05 97.9 69 19 111/53 (72) 98 05/02/17 16:00 71 I/O 05/02/17 05/02/17 05/02/17 05/03/17 05/03/17 05/03/17 07:00 15:00 23:00 07:00 15:00 23:00 Intake Total 276.5 ml 563.6 ml 404 ml 200 ml Output Total 451 ml 2 ml Balance -174.5 ml 563.6 ml 402 ml 200 ml Intake Oral 240 ml IV Total 36.5 ml 563.6 ml 200 ml Packed Cells 400 ml Blood Product IV Normal Saline Flush 4 ml Output Urine Total 450 ml 2 ml Stool Total 1 ml # Bowel Movements 1 Result Diagram: 05/03/17 1125 05/03/17 1125 Imaging Last Impressions Chest X-Ray 05/01/17 1240 Signed Impressions: Service Date/Time: Monday, May 01, 2017 13:02 - CONCLUSION: Normal examination. Remigio Bill MD Abdomen/Pelvis CT 05/01/17 0000 Signed Impressions: Service Date/Time: Monday, May 01, 2017 13:15 - CONCLUSION: Trace free fluid in the abdomen. Cardiomegaly with trace left pleural effusion No inflammatory changes Garry Mccloud MD FACR Objective Remarks General: No acute distress. Heart: Regular rate and rhythm. 2/6 systolic murmur. Lungs: Clear to auscultation bilaterally. No wheezes, rales, or rhonchi. Breathing is nonlabored. Abdomen: Soft, nontender, nondistended. Extremities: No lower extremity edema. Psych: Alert and oriented. 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 Last Edited By: Nita Marie on Oct 23, 2016 17:07 (3) Chest pain ICD Code: R07.9 - Chest pain, unspecified Status: Acute (4) Hypertension ICD Code: I10 - Essential (primary) hypertension Status: Chronic Assessment and Plan 1. Acute anemia secondary to acute blood loss: Hemoglobin improved following transfusion. Monitor labs. No sign of active bleeding. Appreciate GI recommendations. Status post EGD today. Continue Protonix. 2. Mildly elevated troponin: Likely secondary to renal failure. Appreciate cardiology recommendations. 3. Heart murmur: Check echocardiogram. 4. Hyperkalemia: Improved. 5. Chronic kidney disease stage V: Appreciate nephrology recommendations. Discussed with Dr. Davidson at bedside. Nephrology is recommending dialysis. Patient states that he will consider it. 6. Hypertension: Continue amlodipine, Bumex, carvedilol, HCTZ, hydralazine. 7. Hyperlipidemia: Continue statin. 8. DVT prophylaxis: SCDs. Problem Qualifiers (1) GI bleed: Qualified Codes: K92.2 - Gastrointestinal hemorrhage, unspecified (2) Chest pain: Qualified Codes: R07.9 - Chest pain, unspecified Timoteo Best MD May 03, 2017 14:49
[2017-05-03] MEDS: TAMSULOSIN HCL 0.4 MG CAP PO SCH (20:56)
[2017-05-03] MEDS: MIRTAZAPINE 15 MG TAB PO SCH (20:56)
[2017-05-03] MEDS: ATORVASTATIN 80 MG TAB PO SCH (20:57)
--- NOTE | 2017-05-03 21:28 | HHI.NPPN ---
Subjective History of Present Illness 57-year-old male with a past medical history of hypertension, history of chronic kidney disease, chronic obstructive pulmonary disease, ischemic heart disease, benign prostatic hypertrophy, congestive heart failure, came to the hospital with complaint of chest pain and generalized weakness. I was called to see the patient because of elevated BUN and creatinine. Additional Remarks Patient is alert, complain, of feeling tired, seen in the afternoon after the EGD. Objective Data Data 05/03/17 05/04/17 19:00 07:00 Intake Total 920 ml Balance 920 ml Intake Oral 720 ml IV Total 200 ml # Voids 3 # Bowel Movements 0 Vital Signs Date Time Temp Pulse Resp B/P (MAP) Pulse Ox O2 Delivery O2 Flow Rate FiO2 05/03/17 20:00 98.4 76 19 141/89 (106) 99 05/03/17 16:00 82 05/03/17 16:00 98.5 76 18 120/64 (82) 98 05/03/17 12:00 77 05/03/17 12:00 98.4 79 18 145/75 (98) 95 05/03/17 09:41 97.6 70 16 141/77 (98) 97 05/03/17 08:28 99.5 72 18 141/79 (99) 98 05/03/17 08:00 74 05/03/17 08:00 98.1 73 18 112/62 (79) 73 05/03/17 07:31 Room Air 05/03/17 04:00 71 05/03/17 03:39 98.2 72 18 128/64 (85) 98 05/03/17 00:00 97.1 71 20 124/80 (95) 98 05/03/17 00:00 73 -: 05/03/17 1125 05/03/17 1125 Physical Exam General Appearance: No Acute Distress, Comfortable Eyes Eye Exam: Pupils Equal Ears & Nose Ears & Nose Exam: Nasal Mucosa [place] Throat Throat Exam: Oral Mucosa [place] & Moist Neck Neck Exam: Neck Supple, Trachea Midline Pulmonary Resp Exam: Breath Sounds Equal, No Distress, Rhonchi, Decreased Bases Cardiology CV Exam: Regular, Normal Sinus Rhythm Gastrointestinal/Abdomen GI Exam: Soft, Non-Tender, Bowel Sounds Present Extremeties Extremities Exam: Trace Edema Neurologic Neuro Exam: Alert, Awake, Oriented Psychiatric Psych Exam: Appropriate Responses Assessment/Plan Assessment Summary: Anemia of CKD, Hypertension, CKD Stage V Problem List: (1) CKD (chronic kidney disease) stage 5, GFR less than 15 ml/min ICD Codes: N18.5 - Chronic kidney disease, stage 5 Status: Chronic Permanent Comment: Biopsy report from 03/10/16 showed 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 Last Edited By: Nita Marie on Oct 23, 2016 17:07 (2) Diastolic CHF ICD Codes: I50.30 - Unspecified diastolic (congestive) heart failure Status: Acute (3) Monoclonal gammopathy ICD Codes: D47.2 - Monoclonal gammopathy Status: Acute (4) Prostate enlargement ICD Codes: N40.0 - Benign prostatic hyperplasia without lower urinary tract symptoms Status: Chronic (5) Hyperkalemia ICD Codes: E87.5 - Hyperkalemia Status: Acute (6) Metabolic acidosis ICD Codes: E87.2 - Acidosis Status: Chronic (7) Anemia ICD Codes: D64.9 - Anemia, unspecified Status: Chronic Plan Patient has advance stage 4-5 chronic kidney disease. Creatinine increasing and GFR now 10 ml/min. K is normal. Hgb. is better after transfusion. EGD results noted. D/W the patient in detail about possibility of starting the Dialysis. Told him about permCath and AVF Creation. He want to think about it and let me know tomorrow. Matt Davidson MD May 03, 2017 21:28
[2017-05-04] VITALS: BP 140/76; PULSE 76; PULSE 77; RESP 20; TEMP 98.4; O2SAT 97
[2017-05-04] MEDS: ACETAMINOPHEN/HYDROcodone 325 MG/10 MG TAB PO PRN ×3 (01:08→09:43)
[2017-05-04 04:00] VITALS: BP 121/62; PULSE 70; RESP 20; TEMP 98.1; O2SAT 97
[2017-05-04] MEDS: SODIUM BICARBONATE 650 MG TAB PO SCH ×3 (05:42→22:33)
[2017-05-04 06:38] LABS: AUTOMATED NEUTROPHIL # 5.5 TH/MM3 (1.8-7.7); BASOPHIL % 0.3 % (0.0-2.0); EOSINOPHIL # 0.6 TH/MM3 (0-0.4); EOSINOPHIL % 7.3 % (0.0-4.0); HEMATOCRIT 22.7 % (39.0-51.0); HEMOGLOBIN 7.7 GM/DL (13.0-17.0); LYMPH % 21.1 % (9.0-44.0); LYMPHOCYTE # 1.8 TH/MM3 (1.0-4.8); MEAN CELL VOLUME 98.5 FL (80.0-100.0); MEAN CORPUSCULAR HEMOGLOBIN 33.5 PG (27.0-34.0); MEAN PLATELET VOLUME 7.3 FL (7.0-11.0); MONO % 6.3 % (0.0-8.0); MONOCYTE # 0.5 TH/MM3 (0-0.9); PLATELET COUNT 249 TH/MM3 (150-450); RED CELL DISTRIBUTION WIDTH 15.3 % (11.6-17.2); WHITE BLOOD COUNT 8.5 TH/MM3 (4.0-11.0)
[2017-05-04 07:07] LABS: BICARBONATE 18.2 MEQ/L (21.0-32.0); CALCIUM 7.3 MG/DL (8.5-10.1); CREATININE 7.03 MG/DL (0.60-1.30)
[2017-05-04 07:38] LABS: CALCIUM-PROTEIN CORRECTED 7.8 MG/DL (8.5-10.1); TOTAL PROTEIN 6.2 GM/DL (6.4-8.2)
[2017-05-04 08:00] VITALS: BP 149/77; PULSE 73; PULSE 75; RESP 18; TEMP 98.8; O2SAT 99
[2017-05-04] MEDS: FUROSEMIDE 40 MG/4 ML VIAL IV PUSH SCH ×2 (09:02→17:20)
[2017-05-04] MEDS: SODIUM CHLORIDE 0.9% FLUSH 10 ML FLUSH IV FLUSH SCH ×2 (09:03→22:34)
[2017-05-04] MEDS: GABAPENTIN 300 MG CAP PO SCH (09:03)
[2017-05-04] MEDS: amLODIPine BESYLATE 5 MG TAB PO SCH (09:03)
[2017-05-04] MEDS: CARVEDILOL 12.5 MG TAB PO SCH ×2 (09:03→22:33)
[2017-05-04] MEDS: hydrALAZINE HCL 100 MG TAB PO SCH ×3 (09:03→17:20)
[2017-05-04] MEDS: PANTOPRAZOLE SOD 40 MG DELAYED RELEASE TAB PO SCH ×2 (09:04→22:33)
--- NOTE | 2017-05-04 11:25 | HHI.NPPN ---
Subjective History of Present Illness 57-year-old male with a past medical history of hypertension, history of chronic kidney disease, chronic obstructive pulmonary disease, ischemic heart disease, benign prostatic hypertrophy, congestive heart failure, came to the hospital with complaint of chest pain and generalized weakness. I was called to see the patient because of elevated BUN and creatinine. Additional Remarks Patient appears fatigued. Asked many questions about dialysis but has not decided to go forward yet. Mild SOB. No nausea, vomiting, or edema. (Lluvia Landeros) Review of Systems General Constitutional: Fatigue (Lluvia Landeros) Respiratory Respiratory Remarks Mild SOB (Lluvia Landeros) Cardiovascular Cardiac Remarks Denies CP (Lluvia Landeros) Gastrointestinal GI Remarks No Abdominal pain (Lluvia Landeros) Objective Data Data Vital Signs Date Time Temp Pulse Resp B/P (MAP) Pulse Ox O2 Delivery O2 Flow Rate FiO2 05/04/17 10:22 Room Air 05/04/17 08:00 98.8 75 18 149/77 (101) 99 05/04/17 04:00 98.1 70 20 121/62 (81) 97 05/04/17 00:00 98.4 77 20 140/76 (97) 97 05/04/17 00:00 76 05/03/17 20:00 Room Air 05/03/17 20:00 98.4 76 19 141/89 (106) 99 05/03/17 20:00 81 05/03/17 16:00 82 05/03/17 16:00 98.5 76 18 120/64 (82) 98 05/03/17 12:00 77 05/03/17 12:00 98.4 79 18 145/75 (98) 95 (Lluvia Landeros) -: 05/04/17 0500 05/04/17 0520 Physical Exam General Appearance: No Acute Distress, Comfortable (Lluvia Landeros) Eyes Eye Exam: Pupils Equal (Lluvia Landeros) Ears & Nose Ears & Nose Exam: Nasal Mucosa [place] (Lluvia Landeros) Throat Throat Exam: Oral Mucosa [place] & Moist (Lluvia Landeros) Neck Neck Exam: Neck Supple, Trachea Midline (Lluvia Landeros) Pulmonary Resp Exam: Breath Sounds Equal, No Distress, Rhonchi, Decreased Bases (Lluvia Landeros) Cardiology CV Exam: Regular, Normal Sinus Rhythm (Lluvia Landeros) Gastrointestinal/Abdomen GI Exam: Soft, Non-Tender, Bowel Sounds Present (Lluvia Landeros) Extremeties Extremities Exam: Trace Edema (Lluvia Landeros) Neurologic Neuro Exam: Alert, Awake, Oriented (Lluvia Landeros) Psychiatric Psych Exam: Appropriate Responses (Lluvia Landeros) Assessment/Plan Assessment Summary: Anemia of CKD, Hypertension, CKD Stage V Problem List: (1) CKD (chronic kidney disease) stage 5, GFR less than 15 ml/min ICD Codes: N18.5 - Chronic kidney disease, stage 5 Status: Chronic Plan: Biopsy report from 03/10/16 showed 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 Patient has advance stage 4-5 chronic kidney disease. Creatinine at continues to increase at 7.03 from 6.72 today and GFR 10 ml/min Potassium at 4.6 UOP not documented. Elevated PO4 will add phoslo Dr. Davidson has discussed in detail about possibility of starting the Dialysis. Told him about permCath and AVF Creation. Patient is still considering. Permanent Comment: Last Edited By: Lluvia Landeros on May 04, 2017 11:14 (2) Diastolic CHF ICD Codes: I50.30 - Unspecified diastolic (congestive) heart failure Status: Acute (3) Monoclonal gammopathy ICD Codes: D47.2 - Monoclonal gammopathy Status: Acute (4) Prostate enlargement ICD Codes: N40.0 - Benign prostatic hyperplasia without lower urinary tract symptoms Status: Chronic (5) Hyperkalemia ICD Codes: E87.5 - Hyperkalemia Status: Acute (6) Metabolic acidosis ICD Codes: E87.2 - Acidosis Status: Chronic (7) Anemia ICD Codes: D64.9 - Anemia, unspecified Status: Chronic Plan (Lluvia Landeros) Problem List: (1) CKD (chronic kidney disease) stage 5, GFR less than 15 ml/min ICD Codes: N18.5 - Chronic kidney disease, stage 5 Status: Chronic Plan: Biopsy report from 03/10/16 showed 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 Patient has advance stage 4-5 chronic kidney disease. Creatinine at continues to increase at 7.03 from 6.72 today and GFR 10 ml/min Potassium at 4.6 UOP not documented. Elevated PO4 will add phoslo Dr. Davidson has discussed in detail about possibility of starting the Dialysis. Told him about permCath and AVF Creation. Patient is still considering. Patient seen and examined, agree with above. I discussed in detail with him about Dialysis, possible uremic complications if not started on Dialysis. He is still thinking and will let me know tomorrow. Permanent Comment: Last Edited By: Lluvia Landeros on May 04, 2017 11:14 (2) Diastolic CHF ICD Codes: I50.30 - Unspecified diastolic (congestive) heart failure Status: Acute (3) Monoclonal gammopathy ICD Codes: D47.2 - Monoclonal gammopathy Status: Acute (4) Prostate enlargement ICD Codes: N40.0 - Benign prostatic hyperplasia without lower urinary tract symptoms Status: Chronic (5) Hyperkalemia ICD Codes: E87.5 - Hyperkalemia Status: Acute (6) Metabolic acidosis ICD Codes: E87.2 - Acidosis Status: Chronic (7) Anemia ICD Codes: D64.9 - Anemia, unspecified Status: Chronic (Matt Davidson MD) Lluvia Landeros May 04, 2017 11:25 Matt Davidson MD May 04, 2017 21:33
[2017-05-04 12:00] VITALS: BP 124/59; PULSE 73; PULSE 74; RESP 18; TEMP 98.2; O2SAT 98
[2017-05-04] MEDS: CALCIUM ACETATE 667 MG CAP PO SCH ×2 (12:50→17:20)
--- NOTE | 2017-05-04 13:40 | HHI.PR ---
Subjective Remarks Follow up renal failure, neck pain, anemia. Patient still reporting pain in the right side of the neck. Feels tired and weak. Also reporting dyspnea. Objective Vitals Vital Signs Date Time Temp Pulse Resp B/P (MAP) Pulse Ox O2 Delivery O2 Flow Rate FiO2 05/04/17 12:00 98.2 73 18 124/59 (80) 98 05/04/17 10:22 Room Air 05/04/17 08:00 73 05/04/17 08:00 98.8 75 18 149/77 (101) 99 05/04/17 04:00 98.1 70 20 121/62 (81) 97 05/04/17 00:00 98.4 77 20 140/76 (97) 97 05/04/17 00:00 76 05/03/17 20:00 Room Air 05/03/17 20:00 98.4 76 19 141/89 (106) 99 05/03/17 20:00 81 05/03/17 16:00 82 05/03/17 16:00 98.5 76 18 120/64 (82) 98 I/O 05/03/17 05/03/17 05/03/17 05/04/17 05/04/17 05/04/17 07:00 15:00 23:00 07:00 15:00 23:00 Intake Total 200 ml 720 ml 600 ml Balance 200 ml 720 ml 600 ml Intake Oral 720 ml 600 ml IV Total 200 ml # Voids 3 2 # Bowel Movements 0 Result Diagram: 05/04/17 0500 05/04/17 0520 Imaging Last Impressions Chest X-Ray 05/01/17 1240 Signed Impressions: Service Date/Time: Monday, May 01, 2017 13:02 - CONCLUSION: Normal examination. Remigio Bill MD Abdomen/Pelvis CT 05/01/17 0000 Signed Impressions: Service Date/Time: Monday, May 01, 2017 13:15 - CONCLUSION: Trace free fluid in the abdomen. Cardiomegaly with trace left pleural effusion No inflammatory changes Garry Mccloud MD FACR Objective Remarks General: No acute distress. Heart: Regular rate and rhythm. 2/6 systolic murmur. Lungs: Clear to auscultation bilaterally. No wheezes, rales, or rhonchi. Breathing is nonlabored. Abdomen: Soft, nontender, nondistended. Extremities: No lower extremity edema. Psych: Alert and oriented. Procedures None Urinary Catheter: No Vascular Central Line Catheter: No A/P Problem List: (1) GI bleed ICD Code: K92.2 - Gastrointestinal hemorrhage, unspecified Status: Acute (2) CKD (chronic kidney disease) stage 5, GFR less than 15 ml/min ICD Code: N18.5 - Chronic kidney disease, stage 5 Status: Chronic Permanent Comment: Last Edited By: Lluvia Landeros on May 04, 2017 11:14 (3) Chest pain ICD Code: R07.9 - Chest pain, unspecified Status: Acute (4) Hypertension ICD Code: I10 - Essential (primary) hypertension Status: Chronic Assessment and Plan 1. Acute anemia secondary to acute blood loss: Monitor labs. No sign of active bleeding. Appreciate GI recommendations. Status post EGD today. Continue Protonix. H/H slightly lower today. 2. Mildly elevated troponin: Likely secondary to renal failure. Appreciate cardiology recommendations. 3. Heart murmur: Echocardiogram pending. 4. Hyperkalemia: Improved. 5. Chronic kidney disease stage V: Appreciate nephrology recommendations. Nephrology is recommending dialysis. Patient is considering dialysis, but has not yet agreed. 6. Hypertension: Continue amlodipine, Bumex, carvedilol, HCTZ, hydralazine. 7. Hyperlipidemia: Continue statin. 8. DVT prophylaxis: SCDs. Discharge Planning Pending clinical improvement. Problem Qualifiers (1) GI bleed: Qualified Codes: K92.2 - Gastrointestinal hemorrhage, unspecified (2) Chest pain: Qualified Codes: R07.9 - Chest pain, unspecified Timoteo Best MD May 04, 2017 13:40
--- NOTE | 2017-05-04 15:15 | ECHRPT ---
Indication: Cardiac murmur, unspecified CONCLUSIONS The left ventricular systolic function is normal with an estimated ejection fraction in the range of 55-60%. Wall thickness is measured at the upper limits of normal. Normal left ventricular size. The left atrial size is upper normal. Unremarkable. Mild mitral valve regurgitation. Mild aortic valve regurgitation. Moderate aortic valve stenosis. Aortic valve area is 2.1 cm. Aortic valve mean gradient is 19.5 mmHg. Trivial tricuspid valve regurgitation. BP: 121 / 62 HR: 70 Rhythm: Sinus MEASUREMENTS (Male / Female) Normal Values Technical Quality:Good 2D ECHO LV Diastolic Diameter PLAX 4.9 cm 4.2 - 5.9 / 3.9 - 5.3 cm LV Systolic Diameter PLAX 3.7 cm IVS Diastolic Thickness 1.3 cm 0.6 - 1.0 / 0.6 - 0.9 cm LVPW Diastolic Thickness 1.3 cm 0.6 - 1.0 / 0.6 - 0.9 cm LV Relative Wall Thickness 0.5 LVOT Diameter 2.3 cm M-MODE Aortic Root Diameter MM 3.7 cm LA Systolic Diameter MM 4.5 cm LA Ao Ratio MM 1.2 AV Cusp Separation MM 1.6 cm DOPPLER AV Peak Velocity 288.0 cm/s AV Peak Gradient 33.2 mmHg AV Mean Gradient 19.5 mmHg AV Velocity Time Integral 60.8 cm AI Peak Velocity 305.0 cm/s AI Peak Gradient 37.2 mmHg AI Pressure Half Time 722.0 ms LVOT Peak Velocity 145.0 cm/s LVOT Peak Gradient 8.4 mmHg AV Area Cont Eq pk 2.1 cm MR Peak Velocity 394.0 cm/s MR Peak Gradient 62.1 mmHg Mitral E Point Velocity 93.3 cm/s Mitral A Point Velocity 79.0 cm/s Mitral E to A Ratio 1.2 LV E' Lateral Velocity 6.5 cm/s Mitral E to LV E' Lateral Ratio 14.3 LV E' Septal Velocity 7.8 cm/s Mitral E to LV E' Septal Ratio 12.0 TR Peak Velocity 231.0 cm/s TR Peak Gradient 21.3 mmHg Right Atrial Pressure 10.0 mmHg Pulmonary Artery Systolic Pressu 31.3 mmHg Right Ventricular Systolic Press 31.3 mmHg PV Peak Velocity 111.0 cm/s PV Peak Gradient 4.9 mmHg FINDINGS LEFT VENTRICLE The left ventricular systolic function is normal with an estimated ejection fraction in the range of 55-60%. Wall thickness is measured at the upper limits of normal. Normal left ventricular size. RIGHT VENTRICLE Normal right ventricular size and systolic function. LEFT ATRIUM The left atrial size is upper normal. RIGHT ATRIUM The right atrial size is normal. ATRIAL SEPTUM Unremarkable. AORTA The aortic root and proximal ascending aorta are normal in size on limited imaging. MITRAL VALVE Mild mitral valve regurgitation. AORTIC VALVE Mild aortic valve regurgitation. Moderate aortic valve stenosis. Aortic valve area is 2.1 cm. Aortic valve mean gradient is 19.5 mmHg. TRICUSPID VALVE Structurally normal tricuspid valve. Trivial tricuspid valve regurgitation. PULMONARY VALVE No pulmonary valve regurgitation or stenosis. VESSELS The inferior vena cava is normal in size. PERICARDIUM No pericardial effusion. lCinton Hicks MD (Electronically Signed) Final Date:04 May 2017 15:13
--- NOTE | 2017-05-04 15:49 | HHI.GIFU ---
Subjective Remarks Pt resting in bed, napping. Offers no complaints. Denies bleeding. (Kaley Robertson) Objective Vitals I&O Vital Signs Date Time Temp Pulse Resp B/P (MAP) Pulse Ox O2 Delivery O2 Flow Rate FiO2 05/04/17 12:00 98.2 73 18 124/59 (80) 98 05/04/17 12:00 74 05/04/17 10:22 Room Air 05/04/17 08:00 73 05/04/17 08:00 98.8 75 18 149/77 (101) 99 05/04/17 04:00 98.1 70 20 121/62 (81) 97 05/04/17 00:00 98.4 77 20 140/76 (97) 97 05/04/17 00:00 76 05/03/17 20:00 Room Air 05/03/17 20:00 98.4 76 19 141/89 (106) 99 05/03/17 20:00 81 05/03/17 16:00 82 05/03/17 16:00 98.5 76 18 120/64 (82) 98 I/O 05/03/17 05/03/17 05/03/17 05/04/17 05/04/17 05/04/17 07:00 15:00 23:00 07:00 15:00 23:00 Intake Total 200 ml 720 ml 600 ml Balance 200 ml 720 ml 600 ml Intake Oral 720 ml 600 ml IV Total 200 ml # Voids 3 2 # Bowel Movements 0 Laboratory Laboratory Tests Test 05/04/17 05:00 05/04/17 05:20 White Blood Count 8.5 Red Blood Count 2.30 Hemoglobin 7.7 Hematocrit 22.7 Mean Corpuscular Volume 98.5 Mean Corpuscular Hemoglobin 33.5 Mean Corpuscular Hemoglobin Concent 34.0 Red Cell Distribution Width 15.3 Platelet Count 249 Mean Platelet Volume 7.3 Neutrophils (%) (Auto) 65.0 Lymphocytes (%) (Auto) 21.1 Monocytes (%) (Auto) 6.3 Eosinophils (%) (Auto) 7.3 Basophils (%) (Auto) 0.3 Neutrophils # (Auto) 5.5 Lymphocytes # (Auto) 1.8 Monocytes # (Auto) 0.5 Eosinophils # (Auto) 0.6 Basophils # (Auto) 0.0 CBC Comment DIFF FINAL Differential Comment Blood Urea Nitrogen 48 Creatinine 7.03 Random Glucose 102 Total Protein 6.2 Calcium Level 7.3 Sodium Level 140 Potassium Level 4.6 Chloride Level 113 Carbon Dioxide Level 18.2 Anion Gap 9 Estimat Glomerular Filtration Rate 10 Protein Corrected Calcium 7.8 Imaging Last Impressions Chest X-Ray 05/01/17 1240 Signed Impressions: Service Date/Time: Monday, May 01, 2017 13:02 - CONCLUSION: Normal examination. Remigio Bill MD Abdomen/Pelvis CT 05/01/17 0000 Signed Impressions: Service Date/Time: Monday, May 01, 2017 13:15 - CONCLUSION: Trace free fluid in the abdomen. Cardiomegaly with trace left pleural effusion No inflammatory changes Garry Mccloud MD FACR Physical Exam HEENT: PERRL; normocephalic; atraumatic; no jaundice. CHEST: CTA CARDIAC: RRR +murmur ABDOMEN: Soft, nondistended, nontender; no hepatosplenomegaly; bowel sounds are present in all four quadrants. EXTREMITIES: No clubbing, cyanosis, or edema. SKIN: Normal; no rash; no jaundice. [employer]ING TE[employer]ER: sleepy (Kaley Robertson) Assessment and Plan Plan ASSESSMENT - epigastric pain, elevated lipase- unclear etiology pancreatitis vs gastritis vs PUD. lipase [address] abd shows trace free fluid abd, pancreas normal - black tarry stool, anemia - questionable UGIB. anemia is marcocytic. likely anemia is multifactorial as pt has CKD as well. pt had normal EGD and colonoscopy with finding polyps and diverticulosis in 2016. - elevated troponin, cardiac consult pending - CKD V nephrology consult pending 05/04/17 S/P EGD found duodenal inflammation, erythematous gastritis. bx pending. no obvious bleeding. pt has no complaints. lipase now WNL PLAN - LUIS A - await bx - continue protonix BID - monitor HH - transfuse as needed - notify GI of active bleeding - GI will sign off. please reconsult if needed pt seen by myself and Dr Downing and this note is on his behalf (Kaley Robertson) Physician Comments Seen and examined, plan as above. Please notify us if needed again, follow up as out patient with biopsy results. (Capo Downing MD) Kaley Robertson May 04, 2017 15:49 Capo Downing MD May 05, 2017 06:59
[2017-05-04 16:00] VITALS: BP 130/65; PULSE 76; PULSE 78; RESP 20; TEMP 98.3; O2SAT 97
[2017-05-04] MEDS: oxyCODONE/ACETAMINOPHEN 7.5 MG/325 MG TAB PO PRN ×2 (18:06→22:32)
[2017-05-04 20:00] VITALS: BP 103/56; PULSE 77; PULSE 78; RESP 20; TEMP 98.2; O2SAT 96
[2017-05-04] MEDS: MIRTAZAPINE 15 MG TAB PO SCH (22:32)
[2017-05-04] MEDS: TAMSULOSIN HCL 0.4 MG CAP PO SCH (22:33)
[2017-05-04] MEDS: ATORVASTATIN 80 MG TAB PO SCH (22:33)
[2017-05-05] VITALS: BP 136/58; PULSE 79; PULSE 81; RESP 20; TEMP 98; O2SAT 97
[2017-05-05] MEDS: oxyCODONE/ACETAMINOPHEN 7.5 MG/325 MG TAB PO PRN ×5 (03:00→22:03)
[2017-05-05 04:00] VITALS: BP 124/67; PULSE 77; PULSE 81; RESP 20; TEMP 98; O2SAT 96
[2017-05-05 06:03] LABS: AUTOMATED NEUTROPHIL # 5.8 TH/MM3 (1.8-7.7); BASOPHIL % 0.4 % (0.0-2.0); EOSINOPHIL # 0.5 TH/MM3 (0-0.4); HEMATOCRIT 21.3 % (39.0-51.0); HEMOGLOBIN 7.3 GM/DL (13.0-17.0); LYMPH % 19.3 % (9.0-44.0); LYMPHOCYTE # 1.7 TH/MM3 (1.0-4.8); MEAN CELL VOLUME 97.3 FL (80.0-100.0); MEAN CORPUSCULAR HEMOGLOBIN 33.5 PG (27.0-34.0); MEAN CORPUSCULAR HGB CONC 34.4 % (32.0-36.0); MEAN PLATELET VOLUME 7.7 FL (7.0-11.0); MONO % 6.9 % (0.0-8.0); MONOCYTE # 0.6 TH/MM3 (0-0.9); NEUT % 67.4 % (16.0-70.0); PLATELET COUNT 263 TH/MM3 (150-450); RED BLOOD COUNT 2.19 MIL/MM3 (4.50-5.90); RED CELL DISTRIBUTION WIDTH 15.2 % (11.6-17.2); WHITE BLOOD COUNT 8.6 TH/MM3 (4.0-11.0)
[2017-05-05 06:28] LABS: CALCIUM 7.2 MG/DL (8.5-10.1); CREATININE 7.07 MG/DL (0.60-1.30)
[2017-05-05] MEDS: SODIUM BICARBONATE 650 MG TAB PO SCH ×3 (06:41→22:02)
[2017-05-05 07:20] LABS: CALCIUM-PROTEIN CORRECTED 7.8 MG/DL (8.5-10.1)
[2017-05-05 08:00] VITALS: BP 137/63; PULSE 89; RESP 20; TEMP 98.8; O2SAT 99
[2017-05-05] MEDS: SODIUM CHLORIDE 0.9% FLUSH 10 ML FLUSH IV FLUSH SCH ×2 (08:45→22:01)
[2017-05-05] MEDS: FUROSEMIDE 40 MG/4 ML VIAL IV PUSH SCH ×2 (08:45→17:07)
[2017-05-05] MEDS: CARVEDILOL 12.5 MG TAB PO SCH ×2 (08:46→22:02)
[2017-05-05] MEDS: hydrALAZINE HCL 100 MG TAB PO SCH ×3 (08:46→17:06)
[2017-05-05] MEDS: CALCIUM ACETATE 667 MG CAP PO SCH ×3 (08:46→17:06)
[2017-05-05] MEDS: PANTOPRAZOLE SOD 40 MG DELAYED RELEASE TAB PO SCH ×2 (08:46→22:02)
[2017-05-05] MEDS: GABAPENTIN 300 MG CAP PO SCH (08:47)
[2017-05-05] MEDS: amLODIPine BESYLATE 5 MG TAB PO SCH (08:47)
--- NOTE | 2017-05-05 10:20 | HHI.NPPN ---
Subjective History of Present Illness 57-year-old male with a past medical history of hypertension, history of chronic kidney disease, chronic obstructive pulmonary disease, ischemic heart disease, benign prostatic hypertrophy, congestive heart failure, came to the hospital with complaint of chest pain and generalized weakness. I was called to see the patient because of elevated BUN and creatinine. Additional Remarks Patient reports fatigue and nausea yesterday. Continues to have mild SOB. (Lluvia Landeros) Review of Systems General Constitutional: Fatigue (Lluvia Landeros) Respiratory Respiratory Remarks Mild SOB (Lluvia Landeros) Cardiovascular Cardiac Remarks Denies CP (Lluvia Landeros) Gastrointestinal GI Remarks No Abdominal pain (Lluvia Landeros) Objective Data Data Vital Signs Date Time Temp Pulse Resp B/P (MAP) Pulse Ox O2 Delivery O2 Flow Rate FiO2 05/05/17 08:00 98.8 89 20 137/63 (87) 99 05/05/17 04:00 77 05/05/17 04:00 Room Air 05/05/17 04:00 98.0 81 20 124/67 (86) 96 05/05/17 00:00 98.0 79 20 136/58 (84) 97 05/05/17 00:00 Room Air 05/05/17 00:00 81 05/04/17 20:00 98.2 77 20 103/56 (72) 96 05/04/17 20:00 78 05/04/17 20:00 Room Air 05/04/17 16:00 78 05/04/17 16:00 98.3 76 20 130/65 (86) 97 05/04/17 12:00 98.2 73 18 124/59 (80) 98 05/04/17 12:00 74 05/04/17 10:22 Room Air (Lluvia Landeros) -: 05/05/17 0441 05/05/17 0441 Physical Exam General Appearance: No Acute Distress, Comfortable (Lluvia Landeros) Eyes Eye Exam: Pupils Equal (Lluvia Landeros) Ears & Nose Ears & Nose Exam: Nasal Mucosa [place] (Lluvia Landeros) Throat Throat Exam: Oral Mucosa [place] & Moist (Lluvia Landeros) Neck Neck Exam: Neck Supple, Trachea Midline (Lluvia Landeros) Pulmonary Resp Exam: Breath Sounds Equal, No Distress, Rhonchi, Decreased Bases (Lluvia Landeros) Cardiology CV Exam: Regular, Normal Sinus Rhythm (Lluvia Landeros) Gastrointestinal/Abdomen GI Exam: Soft, Non-Tender, Bowel Sounds Present (Lluvia Landeros) Extremeties Extremities Exam: Trace Edema (Lluvia Landeros) Neurologic Neuro Exam: Alert, Awake, Oriented (Lluvia Landeros) Psychiatric Psych Exam: Appropriate Responses (Lluvia Landeros) Assessment/Plan Assessment Summary: Anemia of CKD, Hypertension, CKD Stage V Problem List: (1) CKD (chronic kidney disease) stage 5, GFR less than 15 ml/min ICD Codes: N18.5 - Chronic kidney disease, stage 5 Status: Chronic Plan: Biopsy report from 03/10/16 showed 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 Patient has advance stage 4-5 chronic kidney disease. Creatinine at 7.07 and GFR 10 ml/min Potassium WNL Dr. Davidson has discussed in detail about possibility of starting the Dialysis. Told him about permCath and AVF Creation. Discussed further with patient and he is still considering. Permanent Comment: Last Edited By: Lluvia Landeros on May 04, 2017 11:14 (2) Diastolic CHF ICD Codes: I50.30 - Unspecified diastolic (congestive) heart failure Status: Acute (3) Monoclonal gammopathy ICD Codes: D47.2 - Monoclonal gammopathy Status: Acute (4) Prostate enlargement ICD Codes: N40.0 - Benign prostatic hyperplasia without lower urinary tract symptoms Status: Chronic (5) Hyperkalemia ICD Codes: E87.5 - Hyperkalemia Status: Acute (6) Metabolic acidosis ICD Codes: E87.2 - Acidosis Status: Chronic (7) Anemia ICD Codes: D64.9 - Anemia, unspecified Status: Chronic Plan (Lluvia Landeros) Problem List: (1) CKD (chronic kidney disease) stage 5, GFR less than 15 ml/min ICD Codes: N18.5 - Chronic kidney disease, stage 5 Status: Chronic Plan: Biopsy report from 03/10/16 showed 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 Patient has advance stage 4-5 chronic kidney disease. Creatinine at 7.07 and GFR 10 ml/min Potassium WNL Dr. Davidson has discussed in detail about possibility of starting the Dialysis. Told him about permCath and AVF Creation. Discussed further with patient and he is still considering. Patient seen and examined, agree with above. After discussion, he agreed about Dialysis. PrermCath ordered. Permanent Comment: Last Edited By: Lluvia Landeros on May 04, 2017 11:14 (2) Diastolic CHF ICD Codes: I50.30 - Unspecified diastolic (congestive) heart failure Status: Acute (3) Monoclonal gammopathy ICD Codes: D47.2 - Monoclonal gammopathy Status: Acute (4) Prostate enlargement ICD Codes: N40.0 - Benign prostatic hyperplasia without lower urinary tract symptoms Status: Chronic (5) Hyperkalemia ICD Codes: E87.5 - Hyperkalemia Status: Acute (6) Metabolic acidosis ICD Codes: E87.2 - Acidosis Status: Chronic (7) Anemia ICD Codes: D64.9 - Anemia, unspecified Status: Chronic (Matt Davidson MD) Lluvia Landeros May 05, 2017 10:20 Matt Davidson MD May 05, 2017 21:41
[2017-05-05 12:00] VITALS: BP 138/65; PULSE 80; RESP 20; TEMP 99.3; O2SAT 96
--- NOTE | 2017-05-05 13:23 | EKG ---
Date Performed: 05/02/2017 Time Performed: 05:10:18 PTAGE: 57 years EKG: Sinus rhythm Normal ECG PREVIOUS TRACING : 05/01/2017 12.32 Since the prior tracing, there has been no significant hilliard DOCTOR: Familia Chrsitensen Interpretating Date/Time 05/05/2017 13:23:19
--- NOTE | 2017-05-05 13:24 | EKG ---
Date Performed: 05/01/2017 Time Performed: 12:32:48 PTAGE: 57 years EKG: SINUS TACHYCARDIA POSSIBLE LEFT ATRIAL ENLARGEMENT ABNORMAL RHYTHM ECG Since the prior trac ing, there has been no significant change DOCTOR: Familia Christensen Interpretating Date/Time 05/05/2017 13:23:29
--- NOTE | 2017-05-05 13:40 | HHI.PR ---
Subjective Remarks Follow up renal failure, neck pain. Patient has not decided if he will agree to dialysis. He states that the Percocet is helping his neck pain more than the [place] did. He has some shortness of breath, unchanged from yesterday. Objective Vitals Vital Signs Date Time Temp Pulse Resp B/P (MAP) Pulse Ox O2 Delivery O2 Flow Rate FiO2 05/05/17 12:00 99.3 80 20 138/65 (89) 96 05/05/17 09:00 99 Room Air 05/05/17 08:00 98.8 89 20 137/63 (87) 99 05/05/17 04:00 77 05/05/17 04:00 Room Air 05/05/17 04:00 98.0 81 20 124/67 (86) 96 05/05/17 00:00 98.0 79 20 136/58 (84) 97 05/05/17 00:00 Room Air 05/05/17 00:00 81 05/04/17 20:00 98.2 77 20 103/56 (72) 96 05/04/17 20:00 78 05/04/17 20:00 Room Air 05/04/17 16:00 78 05/04/17 16:00 98.3 76 20 130/65 (86) 97 I/O 05/04/17 05/04/17 05/04/17 05/05/17 05/05/17 05/05/17 07:00 15:00 23:00 07:00 15:00 23:00 Intake Total 600 ml 600 ml Output Total 600 ml Balance 600 ml 600 ml -600 ml Intake Oral 600 ml 600 ml Output Urine Total 600 ml # Voids 2 3 # Bowel Movements 1 Result Diagram: 05/05/17 0441 05/05/17 0441 Imaging Last Impressions Chest X-Ray 05/01/17 1240 Signed Impressions: Service Date/Time: Monday, May 01, 2017 13:02 - CONCLUSION: Normal examination. Remigio Bill MD Abdomen/Pelvis CT 05/01/17 0000 Signed Impressions: Service Date/Time: Monday, May 01, 2017 13:15 - CONCLUSION: Trace free fluid in the abdomen. Cardiomegaly with trace left pleural effusion No inflammatory changes Garry Mccloud MD FACR Objective Remarks General: No acute distress. Heart: Regular rate and rhythm. 2/6 systolic murmur. Lungs: Clear to auscultation bilaterally. No wheezes, rales, or rhonchi. Breathing is nonlabored. Abdomen: Soft, nontender, nondistended. Extremities: No lower extremity edema. Psych: Alert and oriented. Procedures None Urinary Catheter: No Vascular Central Line Catheter: No A/P Problem List: (1) GI bleed ICD Code: K92.2 - Gastrointestinal hemorrhage, unspecified Status: Acute (2) CKD (chronic kidney disease) stage 5, GFR less than 15 ml/min ICD Code: N18.5 - Chronic kidney disease, stage 5 Status: Chronic Permanent Comment: Last Edited By: Lluvia Landeros on May 04, 2017 11:14 (3) Chest pain ICD Code: R07.9 - Chest pain, unspecified Status: Acute (4) Hypertension ICD Code: I10 - Essential (primary) hypertension Status: Chronic Assessment and Plan 1. Acute anemia secondary to acute blood loss: Monitor labs. No sign of active bleeding. Appreciate GI recommendations. Status post EGD. Continue Protonix. H/H trending down. 2. Mildly elevated troponin: Likely secondary to renal failure. Appreciate cardiology recommendations. 3. Heart murmur: Echocardiogram shows moderate aortic valve stenosis. Consult CT surgery. 4. Hyperkalemia: Improved. 5. Chronic kidney disease stage V: Appreciate nephrology recommendations. Nephrology is recommending dialysis. Patient is considering dialysis, but has not yet agreed. I spoke with him at length about this today. 6. Hypertension: Continue amlodipine, Bumex, carvedilol, HCTZ, hydralazine. 7. Hyperlipidemia: Continue statin. 8. DVT prophylaxis: SCDs. Discharge Planning Pending clinical improvement. Problem Qualifiers (1) GI bleed: Qualified Codes: K92.2 - Gastrointestinal hemorrhage, unspecified (2) Chest pain: Qualified Codes: R07.9 - Chest pain, unspecified Timoteo Best MD May 05, 2017 13:40
[2017-05-05 16:00] VITALS: BP 108/61; PULSE 77; PULSE 79; RESP 20; TEMP 98.7; O2SAT 99
[2017-05-05] MEDS ORDERED: ceFAZolin 2 GM PREMIX 50 ML IV SCH (17:15)
[2017-05-05] MEDS ORDERED: VANCOMYCIN INJ 1,000 MG in SODIUM CHLOR 0.9% 250 ML INJ 250 ML IV SCH (17:15)
[2017-05-05 20:00] VITALS: BP 131/63; PULSE 74; PULSE 82; RESP 19; TEMP 98.4; O2SAT 98
[2017-05-05] MEDS: MIRTAZAPINE 15 MG TAB PO SCH (22:02)
[2017-05-05] MEDS: ATORVASTATIN 80 MG TAB PO SCH (22:02)
[2017-05-05] MEDS: TAMSULOSIN HCL 0.4 MG CAP PO SCH (22:02)
[2017-05-06] VITALS (12 sets, daily range): BP systolic 106–151; BP diastolic 61–85; PULSE 68–96; RESP 16–18; TEMP 97.8–99.1; O2SAT 86–98
[2017-05-06] MEDS: oxyCODONE/ACETAMINOPHEN 7.5 MG/325 MG TAB PO PRN ×5 (02:20→20:35)
[2017-05-06] MEDS: SODIUM BICARBONATE 650 MG TAB PO SCH ×3 (06:25→20:35)
[2017-05-06 07:49] LABS: BASOPHIL % 0.4 % (0.0-2.0); EOSINOPHIL # 0.6 TH/MM3 (0-0.4); EOSINOPHIL % 6.5 % (0.0-4.0); HEMOGLOBIN 7.2 GM/DL (13.0-17.0); LYMPH % 20.3 % (9.0-44.0); LYMPHOCYTE # 1.9 TH/MM3 (1.0-4.8); MEAN CELL VOLUME 97.9 FL (80.0-100.0); MEAN CORPUSCULAR HEMOGLOBIN 33.5 PG (27.0-34.0); MEAN CORPUSCULAR HGB CONC 34.2 % (32.0-36.0); MEAN PLATELET VOLUME 7.3 FL (7.0-11.0); MONO % 8.8 % (0.0-8.0); MONOCYTE # 0.8 TH/MM3 (0-0.9); PLATELET COUNT 244 TH/MM3 (150-450); RED BLOOD COUNT 2.15 MIL/MM3 (4.50-5.90); RED CELL DISTRIBUTION WIDTH 14.7 % (11.6-17.2); WHITE BLOOD COUNT 9.4 TH/MM3 (4.0-11.0)
[2017-05-06 08:05] LABS: BICARBONATE 19.3 MEQ/L (21.0-32.0); CALCIUM 7.3 MG/DL (8.5-10.1); CREATININE 6.92 MG/DL (0.60-1.30)
[2017-05-06 08:19] LABS: CALCIUM-PROTEIN CORRECTED 7.8 MG/DL (8.5-10.1); TOTAL PROTEIN 6.1 GM/DL (6.4-8.2)
[2017-05-06] MEDS: SODIUM CHLORIDE 0.9% FLUSH 10 ML FLUSH IV FLUSH SCH ×2 (08:27→20:36)
[2017-05-06] MEDS: PANTOPRAZOLE SOD 40 MG DELAYED RELEASE TAB PO SCH ×2 (08:28→20:35)
[2017-05-06] MEDS: CALCIUM ACETATE 667 MG CAP PO SCH ×3 (08:28→18:00)
[2017-05-06] MEDS: FUROSEMIDE 40 MG/4 ML VIAL IV PUSH SCH ×2 (08:28→18:00)
[2017-05-06] MEDS: amLODIPine BESYLATE 5 MG TAB PO SCH (08:28)
[2017-05-06] MEDS: hydrALAZINE HCL 100 MG TAB PO SCH ×3 (08:28→18:00)
[2017-05-06] MEDS: GABAPENTIN 300 MG CAP PO SCH (08:28)
[2017-05-06] MEDS: CARVEDILOL 12.5 MG TAB PO SCH ×2 (08:29→20:39)
[2017-05-06] MEDS ORDERED: SODIUM CHLOR 0.9% 1000 ML INJ 1,000 ML OTHER PRN ×2 (09:23)
[2017-05-06] MEDS ORDERED: SODIUM CHLOR 0.9% 1000 ML INJ 1,000 ML IV PRN (09:23)
[2017-05-06] MEDS ORDERED: HEPARIN SODIUM - IV 10,000 UNITS/10 ML VIAL IV FLUSH PRN (09:30)
[2017-05-06] MEDS ORDERED: ALBUMIN 25% INJ 100 ML IV PRN (09:30)
[2017-05-06] MEDS ORDERED: MANNITOL 12.5 GM/50 ML VIAL IV PRN (09:30)
[2017-05-06] MEDS ORDERED: ACETAMINOPHEN 325 MG TAB PO PRN (09:30)
[2017-05-06] MEDS ORDERED: ONDANSETRON HCL 4 MG/2 ML VIAL IV PUSH PRN (09:30)
[2017-05-06] MEDS ORDERED: GELATIN 12 MM/7 MM FOAM TOP PRN (09:30)
[2017-05-06] MEDS ORDERED: NITROGLYCERIN 0.4 MG SL 25 TABS/BTL SL PRN (09:30)
[2017-05-06] MEDS ORDERED: cloNIDine HCL 0.1 MG TAB PO PRN (09:30)
[2017-05-06] MEDS ORDERED: SODIUM CHLORIDE 0.9% FLUSH 10 ML FLUSH IV FLUSH PRN ×2 (09:30→13:15)
[2017-05-06] MEDS ORDERED: diphenhydrAMINE HCL 25 MG CAP PO PRN (09:30)
--- NOTE | 2017-05-06 09:30 | HHI.NPPN ---
Subjective History of Present Illness 57-year-old male with a past medical history of hypertension, history of chronic kidney disease, chronic obstructive pulmonary disease, ischemic heart disease, benign prostatic hypertrophy, congestive heart failure, came to the hospital with complaint of chest pain and generalized weakness. I was called to see the patient because of elevated BUN and creatinine. Additional Remarks Mild SOB and pruritus. Plans for perma cath placement today (Lluvia Landeros) Review of Systems General Constitutional: Fatigue (Lluvia Landeros) Respiratory Respiratory Remarks Mild SOB (Lluvia Landeros) Cardiovascular Cardiac Remarks Denies CP (Lluvia Landeros) Gastrointestinal GI Remarks No Abdominal pain (Lluvia Landeros) Objective Data Data Vital Signs Date Time Temp Pulse Resp B/P (MAP) Pulse Ox O2 Delivery O2 Flow Rate FiO2 05/06/17 08:21 98.4 73 18 106/71 (83) 96 05/06/17 04:03 Room Air 05/06/17 04:00 99.0 72 18 116/61 (79) 96 05/06/17 04:00 71 05/06/17 00:00 Room Air 05/06/17 00:00 98.7 77 18 131/67 (88) 98 05/06/17 00:00 73 05/05/17 20:00 98.4 82 19 131/63 (85) 98 05/05/17 20:00 Room Air 05/05/17 20:00 74 05/05/17 18:28 99 Room Air 05/05/17 16:00 79 05/05/17 16:00 98.7 77 20 108/61 (77) 99 05/05/17 12:00 96 Room Air 05/05/17 12:00 80 05/05/17 12:00 99.3 80 20 138/65 (89) 96 (Lluvia Landeros) -: 05/06/17 0700 05/06/17 0700 Physical Exam General Appearance: No Acute Distress, Comfortable (Lluvia Landeros) Eyes Eye Exam: Pupils Equal (Lluvia Landeros) Ears & Nose Ears & Nose Exam: Nasal Mucosa [place] (Lluvia Landeros) Throat Throat Exam: Oral Mucosa [place] & Moist (Lluvia Landeros) Neck Neck Exam: Neck Supple, Trachea Midline (Lluvia Landeros) Pulmonary Resp Exam: Breath Sounds Equal, No Distress, Rhonchi, Decreased Bases (Lluvia Landeros) Cardiology CV Exam: Regular, Normal Sinus Rhythm (Lluvia Landeros) Gastrointestinal/Abdomen GI Exam: Soft, Non-Tender, Bowel Sounds Present (Lluvia Landeros) Extremeties Extremities Exam: Trace Edema (Lluvia Landeros) Neurologic Neuro Exam: Alert, Awake, Oriented (Lluvia Landeros) Psychiatric Psych Exam: Appropriate Responses (Lluvia Landeros) Assessment/Plan Assessment Summary: Anemia of CKD, Hypertension, CKD Stage V Problem List: (1) CKD (chronic kidney disease) stage 5, GFR less than 15 ml/min ICD Codes: N18.5 - Chronic kidney disease, stage 5 Status: Chronic Plan: Biopsy report from 03/10/16 showed 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 Patient has advance stage 4-5 chronic kidney disease. Creatinine at 6.92 and GFR 10 ml/min Potassium WNL Patient has decided to proceed with dialysis.' Permacath placement today. Plan is for dialysis today and tomorrow Epogen 10,000 units ordered with dialysis. Permanent Comment: Last Edited By: Lluvia Landeros on May 04, 2017 11:14 (2) Diastolic CHF ICD Codes: I50.30 - Unspecified diastolic (congestive) heart failure Status: Acute (3) Monoclonal gammopathy ICD Codes: D47.2 - Monoclonal gammopathy Status: Acute (4) Prostate enlargement ICD Codes: N40.0 - Benign prostatic hyperplasia without lower urinary tract symptoms Status: Chronic (5) Hyperkalemia ICD Codes: E87.5 - Hyperkalemia Status: Acute (6) Metabolic acidosis ICD Codes: E87.2 - Acidosis Status: Chronic (7) Anemia ICD Codes: D64.9 - Anemia, unspecified Status: Chronic Plan (Lluvia Landeros) Problem List: (1) CKD (chronic kidney disease) stage 5, GFR less than 15 ml/min ICD Codes: N18.5 - Chronic kidney disease, stage 5 Status: Chronic Plan: Biopsy report from 03/10/16 showed 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 Patient has advance stage 4-5 chronic kidney disease. Creatinine at 6.92 and GFR 10 ml/min Potassium WNL Patient has decided to proceed with dialysis.' Permacath placement today. Plan is for dialysis today and tomorrow Epogen 10,000 units ordered with dialysis. Patient seen and examined, agree with above. To start HD today. Will get Vascular surgery and U/S arm for AVF. Permanent Comment: Last Edited By: Lluvia Landeros on May 04, 2017 11:14 (2) Diastolic CHF ICD Codes: I50.30 - Unspecified diastolic (congestive) heart failure Status: Acute (3) Monoclonal gammopathy ICD Codes: D47.2 - Monoclonal gammopathy Status: Acute (4) Prostate enlargement ICD Codes: N40.0 - Benign prostatic hyperplasia without lower urinary tract symptoms Status: Chronic (5) Hyperkalemia ICD Codes: E87.5 - Hyperkalemia Status: Acute (6) Metabolic acidosis ICD Codes: E87.2 - Acidosis Status: Chronic (7) Anemia ICD Codes: D64.9 - Anemia, unspecified Status: Chronic (Matt Davidson MD) Lluvia Landeros May 06, 2017 09:30 Matt Davidson MD May 07, 2017 09:25
--- NOTE | 2017-05-06 10:41 | HHI.PR ---
Subjective Remarks Follow-up renal failure. Patient has agreed to dialysis. He is scheduled to have permacath placed today. Dialysis is scheduled for today and tomorrow. He reports pain "all over". He reports itching in his ears. No chest pain. Does report shortness of breath with activity. Objective Vitals Vital Signs Date Time Temp Pulse Resp B/P (MAP) Pulse Ox O2 Delivery O2 Flow Rate FiO2 05/06/17 09:27 96 Room Air 05/06/17 08:21 98.4 73 18 106/71 (83) 96 05/06/17 08:00 70 05/06/17 04:03 Room Air 05/06/17 04:00 99.0 72 18 116/61 (79) 96 05/06/17 04:00 71 05/06/17 00:00 Room Air 05/06/17 00:00 98.7 77 18 131/67 (88) 98 05/06/17 00:00 73 05/05/17 20:00 98.4 82 19 131/63 (85) 98 05/05/17 20:00 Room Air 05/05/17 20:00 74 05/05/17 18:28 99 Room Air 05/05/17 16:00 79 05/05/17 16:00 98.7 77 20 108/61 (77) 99 05/05/17 12:00 96 Room Air 05/05/17 12:00 80 05/05/17 12:00 99.3 80 20 138/65 (89) 96 I/O 05/05/17 05/05/17 05/05/17 05/06/17 05/06/17 05/06/17 07:00 15:00 23:00 07:00 15:00 23:00 Intake Total 1320 ml 0 ml Output Total 600 ml 3 ml Balance -600 ml 1320 ml -3 ml Intake Oral 1320 ml 0 ml Output Urine Total 600 ml 3 ml # Voids 4 # Bowel Movements 0 1 Result Diagram: 05/06/17 0700 05/06/17 0700 Imaging Last Impressions Chest X-Ray 05/01/17 1240 Signed Impressions: Service Date/Time: Monday, May 01, 2017 13:02 - CONCLUSION: Normal examination. Remigio Bill MD Abdomen/Pelvis CT 05/01/17 0000 Signed Impressions: Service Date/Time: Monday, May 01, 2017 13:15 - CONCLUSION: Trace free fluid in the abdomen. Cardiomegaly with trace left pleural effusion No inflammatory changes Garry Mccloud MD FACR Objective Remarks General: No acute distress. Heart: Regular rate and rhythm. 2/6 systolic murmur. Lungs: Clear to auscultation bilaterally. No wheezes, rales, or rhonchi. Breathing is nonlabored. Abdomen: Soft, nontender, nondistended. Extremities: No lower extremity edema. Psych: Alert and oriented. Procedures None Urinary Catheter: No Vascular Central Line Catheter: No A/P Problem List: (1) GI bleed ICD Code: K92.2 - Gastrointestinal hemorrhage, unspecified Status: Acute (2) CKD (chronic kidney disease) stage 5, GFR less than 15 ml/min ICD Code: N18.5 - Chronic kidney disease, stage 5 Status: Chronic Permanent Comment: Last Edited By: Lluvia Landeros on May 04, 2017 11:14 (3) Chest pain ICD Code: R07.9 - Chest pain, unspecified Status: Acute (4) Hypertension ICD Code: I10 - Essential (primary) hypertension Status: Chronic Assessment and Plan 1. Acute anemia secondary to acute blood loss: Monitor labs. No sign of active bleeding. Appreciate GI recommendations. Status post EGD. Continue Protonix. H/H trending down. 2. Mildly elevated troponin: Likely secondary to renal failure. Appreciate cardiology recommendations. 3. Heart murmur: Echocardiogram shows moderate aortic valve stenosis. Cardiothoracic surgery consult pending. 4. Hyperkalemia: Improved. 5. Chronic kidney disease stage V: Appreciate nephrology recommendations. Patient has agreed to dialysis. Permacath to be placed today. Dialysis today and tomorrow per nephrology. 6. Hypertension: Continue amlodipine, Bumex, carvedilol, HCTZ, hydralazine. 7. Hyperlipidemia: Continue statin. 8. DVT prophylaxis: SCDs. Discharge Planning Pending clinical improvement. Problem Qualifiers (1) GI bleed: Qualified Codes: K92.2 - Gastrointestinal hemorrhage, unspecified (2) Chest pain: Qualified Codes: R07.9 - Chest pain, unspecified Timoteo Best MD May 06, 2017 10:41
[2017-05-06] MEDS ORDERED: MIDAZOLAM HCL 2 MG/2 ML VIAL ONE (12:20)
[2017-05-06] MEDS ORDERED: LIDOCAINE 1%/EPINEPHrine 1:100,000 SOLN 30 ML VIAL ONE (12:23)
--- NOTE | 2017-05-06 13:03 | PD.RAD ---
Post Procedure Progress Note Pre Procedure Diagnosis: (1) CKD (chronic kidney disease) stage 5, GFR less than 15 ml/min Post Procedure Diagnosis: (1) CKD (chronic kidney disease) stage 5, GFR less than 15 ml/min Procedure Date: May 06, 2017 Supervising Radiologist: Jaylon Scott JR Proceduralist/Assist: Alex Conrad, RT(R), Jimy Pérez, RT(R) Anesthesia: Conscious Sedation Plan of Activity Patient to Unit: ROPU Patient Condition: Good See PACS Report for procedural detail/treatment Central Venous Access Device Procedure 1 Right Internal Jugular Hemodialysis Catheter Tunneled Placement dual lumen Amharic: 15 Findings: Right IJ permcath in good position and functions well. OK to use. Plan Remove sutures in 2-3 weeks. Jr. Tyler,Jaylon Kan MD May 06, 2017 13:03
[2017-05-06] MEDS ORDERED: HEPARIN SODIUM - IV 2,000 UNITS/2 ML VIAL IV FLUSH PRN (13:15)
--- NOTE | 2017-05-06 14:51 | RADRPT ---
EXAM DATE/TIME: 05/06/2017 11:55 [facility] COMPARISON: No previous studies available for comparison. INDICATIONS : Patient in need of permanent central venous catheter placement for hemodialysis. MEDICAL HISTORY : HTN CAD Heart murmur Valvular heart dx by echo COPD BPH HLD CHF SURGICAL HISTORY : Colonoscopy Coronary angiogram ENCOUNTER: Initial ACUITY: 4-6 days PAIN SCORE: 0/10 LOCATION: N/A FLUORO TIME: 0.6 minutes IMAGE SERIES: 1 SEDATION TIME: 30 minutes ACCESS: Right internal jugular vein SEDATION: 1.) 0.5 mg midazolam (Versed) IV 2.) 100 mcg fentanyl (Sublimaze) IV Prophylactic antibiotics were administered with appropriate pre-procedure timing. Vancomycin within 2 hours of procedure, Ancef (or alternative) within 1 hour of procedure. DEVICE: 1. 15 [place] dual lumen 19 cm Ya II Plus catheter PROCEDURE : 1. Ultrasound-guided venipuncture. 2. PermaCath placement. 3. Conscious sedation with continuous EKG and oximetry monitoring. The risks, benefits and alternatives to the procedure were explained and verbal and written consent w as obtained. The site was prepped in sterile fashion. Full sterile technique was used, including ca p, mask, sterile gloves and gown and a large sterile sheet. Hand hygiene and 2% chlorhexidine and/or betadine/alcohol prep was utilized per protocol for cutaneous antisepsis. Sterile gel and sterile p robe cover were utilized for ultrasound guidance. The skin and subcutaneous tissues were infiltrated with local anesthetic solution. With ultrasound and fluoroscopic guidance a dermatotomy was created over the prescribed vein. A micr opuncture set was used to access the targeted vein and serial dilatation was performed to accept the prescribed length catheter. A subcutaneous tunnel was created in a retrograde fashion the catheter w as pulled through the tunnel. The catheter was flushed and assembled and locked with heparin. The c atheter was sutured in place. Conscious sedation was performed with the prescribed dosages and duration as above in the presence of an independent trained radiology nurse to assist in the monitoring of the patient. EKG and oximetry remained stable throughout the procedure. The patient tolerated the procedure well and there were n o complications. The patient was sent to post anesthesia recovery in stable condition. CONCLUSION: Uncomplicated PermaCath placement as above. Jaylon Scott Jr., MD on May 06, 2017 at 14:49 Board Certified Radiologist. This report was verified electronically.
[2017-05-06] MEDS: EPOETIN ALFA 10,000 UNITS/ML VIAL IV PUSH PRN (18:33)
[2017-05-06] MEDS: HEPARIN SODIUM - IV 10,000 UNITS/10 ML VIAL PRN (18:34)
[2017-05-06] MEDS: GENTAMICIN SULFATE 20 MG/2 ML VIAL OTHER PRN (18:34)
[2017-05-06] MEDS: MIRTAZAPINE 15 MG TAB PO SCH (20:35)
[2017-05-06] MEDS: TAMSULOSIN HCL 0.4 MG CAP PO SCH (20:35)
[2017-05-06] MEDS: ATORVASTATIN 80 MG TAB PO SCH (20:35)
[2017-05-07] VITALS (8 sets, daily range): BP systolic 111–129; BP diastolic 56–72; PULSE 71–100; RESP 16–20; TEMP 98.1–99.9; O2SAT 96–98
[2017-05-07] MEDS: oxyCODONE/ACETAMINOPHEN 7.5 MG/325 MG TAB PO PRN ×6 (00:29→23:16)
[2017-05-07] MEDS: SODIUM BICARBONATE 650 MG TAB PO SCH ×3 (04:40→21:59)
[2017-05-07] MEDS: CALCIUM ACETATE 667 MG CAP PO SCH ×3 (07:50→18:00)
[2017-05-07] MEDS: GABAPENTIN 300 MG CAP PO SCH (07:50)
[2017-05-07] MEDS: PANTOPRAZOLE SOD 40 MG DELAYED RELEASE TAB PO SCH ×2 (07:50→21:59)
[2017-05-07] MEDS: hydrALAZINE HCL 100 MG TAB PO SCH ×3 (07:50→18:00)
[2017-05-07] MEDS: CALCITRIOL 0.25 MCG CAP PO SCH (07:50)
[2017-05-07] MEDS: amLODIPine BESYLATE 5 MG TAB PO SCH (07:50)
[2017-05-07] MEDS: CARVEDILOL 12.5 MG TAB PO SCH ×2 (07:51→22:06)
[2017-05-07] MEDS: FUROSEMIDE 40 MG/4 ML VIAL IV PUSH SCH ×2 (07:52→18:00)
[2017-05-07] MEDS: SODIUM CHLORIDE 0.9% FLUSH 10 ML FLUSH IV FLUSH SCH ×2 (07:53→22:01)
[2017-05-07 09:15] LABS: AUTOMATED NEUTROPHIL # 7.4 TH/MM3 (1.8-7.7); BASOPHIL % 0.4 % (0.0-2.0); EOSINOPHIL # 0.6 TH/MM3 (0-0.4); EOSINOPHIL % 5.1 % (0.0-4.0); HEMATOCRIT 21.5 % (39.0-51.0); HEMOGLOBIN 7.3 GM/DL (13.0-17.0); LYMPH % 21.6 % (9.0-44.0); LYMPHOCYTE # 2.5 TH/MM3 (1.0-4.8); MEAN CELL VOLUME 97.6 FL (80.0-100.0); MEAN CORPUSCULAR HEMOGLOBIN 33.1 PG (27.0-34.0); MEAN CORPUSCULAR HGB CONC 33.9 % (32.0-36.0); MEAN PLATELET VOLUME 7.7 FL (7.0-11.0); MONO % 9.1 % (0.0-8.0); MONOCYTE # 1.1 TH/MM3 (0-0.9); NEUT % 63.8 % (16.0-70.0); PLATELET COUNT 238 TH/MM3 (150-450); RED BLOOD COUNT 2.21 MIL/MM3 (4.50-5.90); RED CELL DISTRIBUTION WIDTH 14.7 % (11.6-17.2); WHITE BLOOD COUNT 11.5 TH/MM3 (4.0-11.0)
[2017-05-07] MEDS: hydrOXYzine HCL 25 MG TAB PO PRN ×2 (10:19→18:54)
--- NOTE | 2017-05-07 10:39 | HHI.PR ---
Subjective Remarks Follow up renal failure. Patient reports itching in his ears, on his arms, and on his legs. Itching is getting worse. Denies chest pain, dyspnea. Objective Vitals Vital Signs Date Time Temp Pulse Resp B/P (MAP) Pulse Ox O2 Delivery O2 Flow Rate FiO2 05/07/17 10:11 Room Air 05/07/17 08:00 98.1 72 20 122/63 (82) 96 05/07/17 04:00 Room Air 05/07/17 04:00 74 05/07/17 04:00 98.7 71 16 111/56 (74) 97 05/07/17 00:00 Room Air 05/07/17 00:00 83 05/07/17 00:00 99.9 81 16 126/69 (88) 97 05/06/17 20:00 92 05/06/17 20:00 99.1 96 18 134/70 (91) 98 05/06/17 20:00 Room Air 05/06/17 20:00 99.1 96 18 134/70 (91) 98 05/06/17 16:02 98.0 78 18 148/80 (102) 98 05/06/17 16:00 80 05/06/17 14:00 76 16 151/78 (102) 86 05/06/17 13:45 75 16 134/71 (92) 86 05/06/17 13:30 76 16 131/85 (100) 86 05/06/17 13:20 98.0 68 16 138/85 (102) 92 05/06/17 12:02 97.8 73 18 136/84 (101) 97 I/O 05/06/17 05/06/17 05/06/17 05/07/17 05/07/17 05/07/17 07:00 15:00 23:00 07:00 15:00 23:00 Intake Total 0 ml 480 ml 700 ml Output Total 3 ml 3000 ml Balance -3 ml -2520 ml 700 ml Intake Oral 0 ml 480 ml 700 ml Output Urine Total 3 ml Hemodialysis 3000 ml # Voids 3 2 # Bowel Movements 1 0 Result Diagram: 05/07/17 0809 05/06/17 0700 Imaging Last Impressions Catheter Placement X-Ray 05/06/17 0000 Signed Impressions: Service Date/Time: Saturday, May 06, 2017 11:55 - CONCLUSION: Uncomplicated PermaCath placement as above. Jaylon Scott Jr., MD Chest X-Ray 05/01/17 1240 Signed Impressions: Service Date/Time: Monday, May 01, 2017 13:02 - CONCLUSION: Normal examination. Remigio Bill MD Abdomen/Pelvis CT 05/01/17 0000 Signed Impressions: Service Date/Time: Monday, May 01, 2017 13:15 - CONCLUSION: Trace free fluid in the abdomen. Cardiomegaly with trace left pleural effusion No inflammatory changes Garry Mccloud MD FACR Objective Remarks General: No acute distress. Heart: Regular rate and rhythm. 2/6 systolic murmur. Lungs: Clear to auscultation bilaterally. No wheezes, rales, or rhonchi. Breathing is nonlabored. Abdomen: Soft, nontender, nondistended. Extremities: No lower extremity edema. Psych: Alert and oriented. Procedures 05/06/17 Right IJ permacath placement Urinary Catheter: No Vascular Central Line Catheter: No A/P Problem List: (1) GI bleed ICD Code: K92.2 - Gastrointestinal hemorrhage, unspecified Status: Acute (2) CKD (chronic kidney disease) stage 5, GFR less than 15 ml/min ICD Code: N18.5 - Chronic kidney disease, stage 5 Status: Chronic Permanent Comment: Last Edited By: Lluvia Landeros on May 04, 2017 11:14 (3) Chest pain ICD Code: R07.9 - Chest pain, unspecified Status: Acute (4) Hypertension ICD Code: I10 - Essential (primary) hypertension Status: Chronic Assessment and Plan 1. Acute anemia secondary to acute blood loss: Monitor labs. No sign of active bleeding. Appreciate GI recommendations. Status post EGD. Continue Protonix. H/H trending down. 2. Mildly elevated troponin: Likely secondary to renal failure. Appreciate cardiology recommendations. 3. Heart murmur: Echocardiogram shows moderate aortic valve stenosis. Cardiothoracic surgery consult pending. 4. Hyperkalemia: Improved. 5. Chronic kidney disease stage V: Appreciate nephrology recommendations. Patient has agreed to dialysis. Permacath placed. Continue hemodialysis per nephrology. 6. Hypertension: Continue amlodipine, Bumex, carvedilol, HCTZ, hydralazine. 7. Hyperlipidemia: Continue statin. 8. DVT prophylaxis: SCDs. 9. Rash/pruritis: Atarax, Benadryl cream as needed. Discharge Planning Pending clinical improvement. Problem Qualifiers (1) GI bleed: Qualified Codes: K92.2 - Gastrointestinal hemorrhage, unspecified (2) Chest pain: Qualified Codes: R07.9 - Chest pain, unspecified Timoteo Best MD May 07, 2017 10:39
--- NOTE | 2017-05-07 11:02 | HHI.NPPN ---
Subjective History of Present Illness 57-year-old male with a past medical history of hypertension, history of chronic kidney disease, chronic obstructive pulmonary disease, ischemic heart disease, benign prostatic hypertrophy, congestive heart failure, came to the hospital with complaint of chest pain and generalized weakness. I was called to see the patient because of elevated BUN and creatinine. Additional Remarks Mild SOB and pruritus. Perma cath placed right chest wall. (Lluvia Landeros) Review of Systems General Constitutional: Fatigue (Lluvia Landeros) Respiratory Respiratory Remarks Mild SOB (Lluvia Landeros) Cardiovascular Cardiac Remarks Denies CP (Lluvia Landeros) Gastrointestinal GI Remarks No Abdominal pain (Lluvia Landeros) Objective Data Data Vital Signs Date Time Temp Pulse Resp B/P (MAP) Pulse Ox O2 Delivery O2 Flow Rate FiO2 05/07/17 10:11 Room Air 05/07/17 08:00 98.1 72 20 122/63 (82) 96 05/07/17 04:00 Room Air 05/07/17 04:00 74 05/07/17 04:00 98.7 71 16 111/56 (74) 97 05/07/17 00:00 Room Air 05/07/17 00:00 83 05/07/17 00:00 99.9 81 16 126/69 (88) 97 05/06/17 20:00 92 05/06/17 20:00 99.1 96 18 134/70 (91) 98 05/06/17 20:00 Room Air 05/06/17 20:00 99.1 96 18 134/70 (91) 98 05/06/17 16:02 98.0 78 18 148/80 (102) 98 05/06/17 16:00 80 05/06/17 14:00 76 16 151/78 (102) 86 05/06/17 13:45 75 16 134/71 (92) 86 05/06/17 13:30 76 16 131/85 (100) 86 05/06/17 13:20 98.0 68 16 138/85 (102) 92 05/06/17 12:02 97.8 73 18 136/84 (101) 97 (Lluvia Landeros) -: 05/07/17 0809 05/06/17 0700 Physical Exam General Appearance: No Acute Distress, Comfortable (Lluvia Landeros) Eyes Eye Exam: Pupils Equal (Lluvia Landeros) Ears & Nose Ears & Nose Exam: Nasal Mucosa [place] (Lluvia Landeros) Throat Throat Exam: Oral Mucosa [place] & Moist (Lluvia Landeros) Neck Neck Exam: Neck Supple, Trachea Midline (Lluvia Landeros) Pulmonary Resp Exam: Breath Sounds Equal, No Distress, Rhonchi, Decreased Bases (Lluvia Landeros) Cardiology CV Exam: Regular, Normal Sinus Rhythm (Lluvia Landeros) Gastrointestinal/Abdomen GI Exam: Soft, Non-Tender, Bowel Sounds Present (Lluvia Landeros) Extremeties Extremities Exam: Trace Edema (Lluvia Landeros) Neurologic Neuro Exam: Alert, Awake, Oriented (Lluvia Landeros) Psychiatric Psych Exam: Appropriate Responses (Lluvia Landeros) Assessment/Plan Assessment Summary: Anemia of CKD, Hypertension, CKD Stage V Problem List: (1) CKD (chronic kidney disease) stage 5, GFR less than 15 ml/min ICD Codes: N18.5 - Chronic kidney disease, stage 5 Status: Chronic Plan: Biopsy report from 03/10/16 showed 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 Patient has advance stage 4-5 chronic kidney disease and is now ESRD Potassium WNL Permacath placement in right chest wall. Dialysis yesterday and 3 liters removed Plan is for dialysis today Epogen 10,000 units ordered with dialysis. Vascular surgery consult and U/S arm for AVF. Permanent Comment: Last Edited By: Lluvia Landeros on May 04, 2017 11:14 (2) Diastolic CHF ICD Codes: I50.30 - Unspecified diastolic (congestive) heart failure Status: Acute (3) Monoclonal gammopathy ICD Codes: D47.2 - Monoclonal gammopathy Status: Acute (4) Prostate enlargement ICD Codes: N40.0 - Benign prostatic hyperplasia without lower urinary tract symptoms Status: Chronic (5) Hyperkalemia ICD Codes: E87.5 - Hyperkalemia Status: Acute (6) Metabolic acidosis ICD Codes: E87.2 - Acidosis Status: Chronic (7) Anemia ICD Codes: D64.9 - Anemia, unspecified Status: Chronic Plan (Lluvia Landeros) Problem List: (1) CKD (chronic kidney disease) stage 5, GFR less than 15 ml/min ICD Codes: N18.5 - Chronic kidney disease, stage 5 Status: Chronic Plan: Biopsy report from 03/10/16 showed 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 Patient has advance stage 4-5 chronic kidney disease and is now ESRD Potassium WNL Permacath placement in right chest wall. Dialysis yesterday and 3 liters removed Plan is for dialysis today Epogen 10,000 units ordered with dialysis. Vascular surgery consult and U/S arm for AVF.. Patient seen and examine, agree with above. HD again today, will also need placement. Permanent Comment: Last Edited By: Lluvia Landeros on May 04, 2017 11:14 (2) Diastolic CHF ICD Codes: I50.30 - Unspecified diastolic (congestive) heart failure Status: Acute (3) Monoclonal gammopathy ICD Codes: D47.2 - Monoclonal gammopathy Status: Acute (4) Prostate enlargement ICD Codes: N40.0 - Benign prostatic hyperplasia without lower urinary tract symptoms Status: Chronic (5) Hyperkalemia ICD Codes: E87.5 - Hyperkalemia Status: Acute (6) Metabolic acidosis ICD Codes: E87.2 - Acidosis Status: Chronic (7) Anemia ICD Codes: D64.9 - Anemia, unspecified Status: Chronic (Matt Davidson MD) Lluvia Landeros May 07, 2017 11:02 Matt Davidson MD May 07, 2017 16:17
[2017-05-07 11:22] LABS: BICARBONATE 27.4 MEQ/L (21.0-32.0); CALCIUM 7.4 MG/DL (8.5-10.1); CREATININE 5.82 MG/DL (0.60-1.30)
[2017-05-07 11:53] LABS: CALCIUM-PROTEIN CORRECTED 8.1 MG/DL (8.5-10.1); TOTAL PROTEIN 5.9 GM/DL (6.4-8.2)
[2017-05-07] MEDS: GENTAMICIN SULFATE 20 MG/2 ML VIAL OTHER PRN (17:41)
[2017-05-07] MEDS: HEPARIN SODIUM - IV 10,000 UNITS/10 ML VIAL PRN (17:41)
[2017-05-07] MEDS: diphenhydrAMINE HCL 2%/ZINC ACETATE 0.1% CREAM 30 APPLIC/30 GM TUBE TOPICAL PRN (18:54)
[2017-05-07] MEDS: TAMSULOSIN HCL 0.4 MG CAP PO SCH (21:59)
[2017-05-07] MEDS: ATORVASTATIN 80 MG TAB PO SCH (21:59)
[2017-05-07] MEDS: MIRTAZAPINE 15 MG TAB PO SCH (22:00)
--- NOTE | 2017-05-07 22:26 | RADRPT ---
EXAM DATE/TIME: 05/07/2017 20:50 [facility] COMPARISON: No previous studies available for comparison. INDICATIONS : AVF placement. MEDICAL HISTORY : Hypercholesterolemia. Hypertension. Congestive heart failure. Coronary artery disease. Anticoagulant therapy, Plavix. Dyspnea. Renal disease, Stage 5. Arthritis. Diabetes. SURGICAL HISTORY : Cardiac catherization. Colonoscopy. ENCOUNTER: Initial ACUITY: 1 day PAIN SCORE: 0/10 LOCATION: Bilateral arms. FINDINGS: RIGHT UPPER EXTREMITY: Positive for occlusive thrombus in the subclavian vein around the port. Remainder of right upper extr emity veins are patent. LEFT UPPER EXTREMITY: There is spontaneous flow documented in the brachial, basilic, cephalic, axillary, and subclavian vei ns. The vessels are compressible and augmentation response is documented. No filling defects are se en. The flow is phasic with respiration. Direction of flow in the jugular vein is caudal. CONCLUSION: 1. Positive for deep venous thrombosis in the right subclavian vein around the port. No other DVT not ed. Todd Clements MD on May 07, 2017 at 22:23 Board Certified Radiologist. This report was verified electronically.
--- NOTE | 2017-05-07 22:27 | RADRPT ---
EXAM DATE/TIME: 05/07/2017 21:04 [facility] COMPARISON: No previous studies available for comparison. INDICATIONS : AVF placement. MEDICAL HISTORY : Hypercholesterolemia. Hypertension. Congestive heart failure. Coronary artery disease. Anticoagulant therapy, Plavix. Dyspnea. Renal disease, Stage 5. Arthritis. Diabetes. SURGICAL HISTORY : Cardiac catherization. Colonoscopy. ENCOUNTER: Initial ACUITY: 1 day PAIN SCORE: 0/10 LOCATION: Bilateral arm. CEPHALIC: ORIGIN: Right 1 mm Left Non-visualized MID-ARM: Right 2 mm Left 1 mm ELBOW: Right 2 mm Left 2 mm FOREARM: Right Non-visualized Left 2 mm WRIST: Right Non-visualized Left 2 mm BASILIC: ORIGIN: Right 5 mm Left 4 mm MID-ARM: Right 4 mm Left 2 mm ELBOW: Right 6 mm Left 3 mm ARTERIES: BRACHIAL: Right 5 mm Left 5 mm ULNAR: Right 2 mm Left 2 mm RADIAL: Right 3 mm Left 4 mm VEINS: RADIAL: Right 2 mm Left 2 mm ULNAR: Right 2 mm Left 2 mm FINDINGS: The venous system of the upper extremities are patent by color Doppler imaging. Measurements of the arm veins (in mm) are listed above. CONCLUSION: 1. Measurements as above. Right cephalic vein not seen in the forearm and left cephalic vein not seen proximally. Todd Clements MD on May 07, 2017 at 22:24 Board Certified Radiologist. This report was verified electronically.
[2017-05-08] VITALS (10 sets, daily range): BP systolic 120–143; BP diastolic 57–83; PULSE 70–85; RESP 18–20; TEMP 97.8–99.7; O2SAT 94–99
[2017-05-08] MEDS: oxyCODONE/ACETAMINOPHEN 7.5 MG/325 MG TAB PO PRN ×4 (04:38→20:14)
[2017-05-08] MEDS: SODIUM BICARBONATE 650 MG TAB PO SCH (04:38)
[2017-05-08] MEDS: hydrALAZINE HCL 100 MG TAB PO SCH ×3 (08:40→17:39)
[2017-05-08] MEDS: GABAPENTIN 300 MG CAP PO SCH (08:40)
[2017-05-08] MEDS: CALCITRIOL 0.25 MCG CAP PO SCH (08:40)
[2017-05-08] MEDS: hydrOXYzine HCL 25 MG TAB PO PRN (08:40)
[2017-05-08] MEDS: amLODIPine BESYLATE 5 MG TAB PO SCH (08:41)
[2017-05-08] MEDS: CALCIUM ACETATE 667 MG CAP PO SCH ×3 (08:41→17:39)
[2017-05-08] MEDS: CARVEDILOL 12.5 MG TAB PO SCH ×2 (08:41→20:14)
[2017-05-08] MEDS: PANTOPRAZOLE SOD 40 MG DELAYED RELEASE TAB PO SCH ×2 (08:41→20:14)
[2017-05-08] MEDS: FUROSEMIDE 40 MG/4 ML VIAL IV PUSH SCH ×2 (08:42→17:39)
[2017-05-08] MEDS: SODIUM CHLORIDE 0.9% FLUSH 10 ML FLUSH IV FLUSH SCH ×2 (08:42→20:17)
[2017-05-08 08:43] LABS: AUTOMATED NEUTROPHIL # 6.4 TH/MM3 (1.8-7.7); BASOPHIL % 0.4 % (0.0-2.0); EOSINOPHIL # 0.5 TH/MM3 (0-0.4); EOSINOPHIL % 5.3 % (0.0-4.0); LYMPH % 22.7 % (9.0-44.0); LYMPHOCYTE # 2.3 TH/MM3 (1.0-4.8); MEAN CORPUSCULAR HEMOGLOBIN 33.8 PG (27.0-34.0); MEAN CORPUSCULAR HGB CONC 34.9 % (32.0-36.0); MEAN PLATELET VOLUME 8.1 FL (7.0-11.0); MONO % 9.1 % (0.0-8.0); MONOCYTE # 0.9 TH/MM3 (0-0.9); NEUT % 62.5 % (16.0-70.0); PLATELET COUNT 214 TH/MM3 (150-450); RED BLOOD COUNT 1.98 MIL/MM3 (4.50-5.90); RED CELL DISTRIBUTION WIDTH 14.3 % (11.6-17.2); WHITE BLOOD COUNT 10.2 TH/MM3 (4.0-11.0)
[2017-05-08 08:49] LABS: HEMATOCRIT 19.2 % (39.0-51.0); HEMOGLOBIN 6.7 GM/DL (13.0-17.0)
[2017-05-08] MEDS ORDERED: SODIUM CHLOR 0.9% 250 ML INJ 250 ML IV ONE (09:00)
[2017-05-08 09:14] LABS: BICARBONATE 31.1 MEQ/L (21.0-32.0); CALCIUM 7.5 MG/DL (8.5-10.1); CREATININE 4.23 MG/DL (0.60-1.30)
--- NOTE | 2017-05-08 10:08 | HHI.PR ---
Subjective Remarks Follow up renal failure, anemia. Patient states that he is tired. Reports shortness of breath. Reports pain in multiple areas, worse in both feet. Objective Vitals Vital Signs Date Time Temp Pulse Resp B/P (MAP) Pulse Ox O2 Delivery O2 Flow Rate FiO2 05/08/17 04:00 73 05/08/17 04:00 97.8 74 18 130/77 (94) 94 05/08/17 00:00 98.4 77 18 121/71 (88) 98 05/07/17 23:44 78 05/07/17 22:35 21 05/07/17 21:45 Room Air 05/07/17 20:00 98.8 80 18 123/72 (89) 98 05/07/17 19:44 100 05/07/17 16:00 73 05/07/17 14:11 21 05/07/17 12:00 82 05/07/17 12:00 98.6 77 20 129/65 (86) 96 05/07/17 10:11 Room Air I/O 05/07/17 05/07/17 05/07/17 05/08/17 05/08/17 05/08/17 07:00 15:00 23:00 07:00 15:00 23:00 Intake Total 700 ml 480 ml Output Total 3000 ml Balance 700 ml -2520 ml Intake Oral 700 ml 480 ml Hemodialysis 3000 ml # Voids 2 1 3 Result Diagram: 05/08/17 0715 05/08/17 0719 Imaging Last Impressions Upper Extremity Ultrasound 05/07/17 0000 Signed Impressions: Service Date/Time: Sunday, May 07, 2017 20:50 - CONCLUSION: 1. Positive for deep venous thrombosis in the right subclavian vein around the port. No other DVT noted. Todd Clements MD Catheter Placement X-Ray 05/06/17 0000 Signed Impressions: Service Date/Time: Saturday, May 06, 2017 11:55 - CONCLUSION: Uncomplicated PermaCath placement as above. Jaylon Scott Jr., MD Chest X-Ray 05/01/17 1240 Signed Impressions: Service Date/Time: Monday, May 01, 2017 13:02 - CONCLUSION: Normal examination. Remigio Bill MD Abdomen/Pelvis CT 05/01/17 0000 Signed Impressions: Service Date/Time: Monday, May 01, 2017 13:15 - CONCLUSION: Trace free fluid in the abdomen. Cardiomegaly with trace left pleural effusion No inflammatory changes Garry Mccloud MD FACR Objective Remarks General: No acute distress. Heart: Regular rate and rhythm. 2/6 systolic murmur. Lungs: Clear to auscultation bilaterally. No wheezes, rales, or rhonchi. Breathing is nonlabored. Abdomen: Soft, nontender, nondistended. Extremities: Trace bilateral lower extremity edema. Psych: Alert and oriented. Procedures 05/06/17 Right IJ permacath placement Urinary Catheter: No Vascular Central Line Catheter: No A/P Problem List: (1) GI bleed ICD Code: K92.2 - Gastrointestinal hemorrhage, unspecified Status: Acute (2) CKD (chronic kidney disease) stage 5, GFR less than 15 ml/min ICD Code: N18.5 - Chronic kidney disease, stage 5 Status: Chronic Permanent Comment: Last Edited By: Lluvia Landeros on May 04, 2017 11:14 (3) Chest pain ICD Code: R07.9 - Chest pain, unspecified Status: Acute (4) Hypertension ICD Code: I10 - Essential (primary) hypertension Status: Chronic Assessment and Plan 1. Acute anemia secondary to acute blood loss, renal failure: Monitor labs. No sign of active bleeding. Appreciate GI recommendations. Status post EGD. Continue Protonix. H/H trending down. Transfuse 1 unit PRBCs today. 2. Mildly elevated troponin: Likely secondary to renal failure. Appreciate cardiology recommendations. 3. Heart murmur: Echocardiogram shows moderate aortic valve stenosis. Appreciate cardiothoracic surgery recommendations. Repeat echo in 6 months. 4. Hyperkalemia: Improved. 5. Chronic kidney disease stage V: Appreciate nephrology recommendations. Patient has agreed to dialysis. Permacath placed. Continue hemodialysis per nephrology. 6. Hypertension: Continue amlodipine, Bumex, carvedilol, HCTZ, hydralazine. 7. Hyperlipidemia: Continue statin. 8. DVT prophylaxis: SCDs. 9. Rash/pruritis: Atarax, Benadryl cream as needed. Discharge Planning Pending clinical improvement. Problem Qualifiers (1) GI bleed: Qualified Codes: K92.2 - Gastrointestinal hemorrhage, unspecified (2) Chest pain: Qualified Codes: R07.9 - Chest pain, unspecified Timoteo Best MD May 08, 2017 10:08
--- NOTE | 2017-05-08 10:23 | HHI.NPPN ---
Subjective General Problems: Anemia Renal Failure: End Stage Renal Disease History of Present Illness 57-year-old male with a past medical history of hypertension, history of chronic kidney disease, chronic obstructive pulmonary disease, ischemic heart disease, benign prostatic hypertrophy, congestive heart failure, came to the hospital with complaint of chest pain and generalized weakness. I was called to see the patient because of elevated BUN and creatinine. Additional Remarks Mild SOB and pruritus. Dialysis yesterday (Lluvia Landeros) Review of Systems General Constitutional: Fatigue (Lluvia Landeros) Respiratory Respiratory Remarks Mild SOB (Lluvia Landeros) Cardiovascular Cardiac Remarks Denies CP (Lluvia Landeros) Gastrointestinal GI Remarks No Abdominal pain (Lluvia Landeros) Objective Data Data 05/08/17 05/09/17 19:00 07:00 # Voids 3 Vital Signs Date Time Temp Pulse Resp B/P (MAP) Pulse Ox O2 Delivery O2 Flow Rate FiO2 05/08/17 10:15 Room Air 05/08/17 08:00 98.8 73 20 143/83 (103) 98 05/08/17 04:00 73 05/08/17 04:00 97.8 74 18 130/77 (94) 94 05/08/17 00:00 98.4 77 18 121/71 (88) 98 05/07/17 23:44 78 05/07/17 22:35 21 05/07/17 21:45 Room Air 05/07/17 20:00 98.8 80 18 123/72 (89) 98 05/07/17 19:44 100 05/07/17 16:00 73 05/07/17 14:11 21 05/07/17 12:00 82 05/07/17 12:00 98.6 77 20 129/65 (86) 96 (Lluvia Landeros) -: 05/08/17 0715 05/08/17 0719 Tubes & Lines: Perma-Cath Tubes & Lines Comment right chest wall (Lluvia Landeros) Physical Exam General Appearance: No Acute Distress, Comfortable (Lluvia Landeros) Eyes Eye Exam: Pupils Equal (Lluvia Landeros) Ears & Nose Ears & Nose Exam: Nasal Mucosa [place] (Lluvia Landeros) Throat Throat Exam: Oral Mucosa [place] & Moist (Lluvia Landeros) Neck Neck Exam: Neck Supple, Trachea Midline (Lluvia Landeros) Pulmonary Resp Exam: Breath Sounds Equal, No Distress, Rhonchi, Decreased Bases (Lluvia Landeros) Cardiology CV Exam: Regular, Normal Sinus Rhythm (Lluvia Landeros) Gastrointestinal/Abdomen GI Exam: Soft, Non-Tender, Bowel Sounds Present (Lluvia Landeros) Extremeties Extremities Exam: Trace Edema (Lluvia Landeros) Neurologic Neuro Exam: Alert, Awake, Oriented (Lluvia Landeros) Psychiatric Psych Exam: Appropriate Responses (Lluvia Landeros) Assessment/Plan Assessment Summary: Anemia of CKD, Hypertension, CKD Stage V Problem List: (1) CKD (chronic kidney disease) stage 5, GFR less than 15 ml/min ICD Codes: N18.5 - Chronic kidney disease, stage 5 Status: Chronic Plan: Biopsy report from 03/10/16 showed 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 Patient has advance stage 4-5 chronic kidney disease and is now ESRD Potassium WNL Permacath placement in right chest wall. Dialysis yesterday with 3 liters removed Epogen 10,000 units ordered with dialysis. Vascular surgery consult and U/S arm for AVF.. Anemia noted this morning. Plan to transfuse PRBC Feels like his appetite is poor secondary to renal diet will order regular and monitor Sodium bicarbonate discontinued. Permanent Comment: Last Edited By: Lluvia Landeros on May 04, 2017 11:14 (2) Diastolic CHF ICD Codes: I50.30 - Unspecified diastolic (congestive) heart failure Status: Acute Plan: Lasix BID (3) Monoclonal gammopathy ICD Codes: D47.2 - Monoclonal gammopathy Status: Acute (4) Prostate enlargement ICD Codes: N40.0 - Benign prostatic hyperplasia without lower urinary tract symptoms Status: Chronic (5) Hyperkalemia ICD Codes: E87.5 - Hyperkalemia Status: Acute Plan: Resolved (6) Metabolic acidosis ICD Codes: E87.2 - Acidosis Status: Chronic Plan: Resolved (7) Anemia ICD Codes: D64.9 - Anemia, unspecified Status: Chronic Plan: HGB 6.7 today plan to transfuse PRBC today Plan (Lluvia Landeros) Problem List: (1) CKD (chronic kidney disease) stage 5, GFR less than 15 ml/min ICD Codes: N18.5 - Chronic kidney disease, stage 5 Status: Chronic Plan: Biopsy report from 03/10/16 showed 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 Patient has advance stage 4-5 chronic kidney disease and is now ESRD Potassium WNL Permacath placement in right chest wall. Dialysis yesterday with 3 liters removed Epogen 10,000 units ordered with dialysis. Vascular surgery consult and U/S arm for AVF.. Anemia noted this morning. Plan to transfuse PRBC Feels like his appetite is poor secondary to renal diet will order regular and monitor Sodium bicarbonate discontinued. Patient seen and examined, agree with above. Out Patient HD need to be arranged and will need AVF. Permanent Comment: Last Edited By: Lluvia Landeros on May 04, 2017 11:14 (2) Diastolic CHF ICD Codes: I50.30 - Unspecified diastolic (congestive) heart failure Status: Acute Plan: Lasix BID (3) Monoclonal gammopathy ICD Codes: D47.2 - Monoclonal gammopathy Status: Acute (4) Prostate enlargement ICD Codes: N40.0 - Benign prostatic hyperplasia without lower urinary tract symptoms Status: Chronic (5) Hyperkalemia ICD Codes: E87.5 - Hyperkalemia Status: Acute Plan: Resolved (6) Metabolic acidosis ICD Codes: E87.2 - Acidosis Status: Chronic Plan: Resolved (7) Anemia ICD Codes: D64.9 - Anemia, unspecified Status: Chronic Plan: HGB 6.7 today plan to transfuse PRBC today (Matt Davidson MD) Lluvia Landeros May 08, 2017 10:23 Matt Davidson MD May 08, 2017 22:47
[2017-05-08] MEDS: DOCUSATE SODIUM 50 MG/SENNA 8.6 MG TAB PO SCH (11:15)
[2017-05-08] MEDS: FERROUS SULFATE 325 MG (65 MG ELEMENTAL IRON) TAB PO SCH ×2 (12:00→20:14)
[2017-05-08] MEDS: TAMSULOSIN HCL 0.4 MG CAP PO SCH (20:14)
[2017-05-08] MEDS: MIRTAZAPINE 15 MG TAB PO SCH (20:15)
[2017-05-08] MEDS: ATORVASTATIN 80 MG TAB PO SCH (20:15)
[2017-05-09] VITALS (11 sets, daily range): BP systolic 108–165; BP diastolic 55–89; PULSE 63–90; RESP 18–20; TEMP 98.6–101.3; O2SAT 95–98
[2017-05-09] MEDS: oxyCODONE/ACETAMINOPHEN 7.5 MG/325 MG TAB PO PRN ×6 (00:32→23:24)
[2017-05-09 07:56] LABS: AUTOMATED NEUTROPHIL # 8.8 TH/MM3 (1.8-7.7); BASOPHIL % 0.3 % (0.0-2.0); EOSINOPHIL # 0.5 TH/MM3 (0-0.4); EOSINOPHIL % 4.1 % (0.0-4.0); HEMATOCRIT 24.6 % (39.0-51.0); HEMOGLOBIN 8.4 GM/DL (13.0-17.0); LYMPH % 14.1 % (9.0-44.0); LYMPHOCYTE # 1.7 TH/MM3 (1.0-4.8); MEAN CELL VOLUME 94.9 FL (80.0-100.0); MEAN CORPUSCULAR HEMOGLOBIN 32.6 PG (27.0-34.0); MEAN CORPUSCULAR HGB CONC 34.3 % (32.0-36.0); MEAN PLATELET VOLUME 8.1 FL (7.0-11.0); MONO % 8.4 % (0.0-8.0); NEUT % 73.1 % (16.0-70.0); PLATELET COUNT 219 TH/MM3 (150-450); RED BLOOD COUNT 2.59 MIL/MM3 (4.50-5.90); RED CELL DISTRIBUTION WIDTH 17.1 % (11.6-17.2); WHITE BLOOD COUNT 12.1 TH/MM3 (4.0-11.0)
[2017-05-09 08:22] LABS: BICARBONATE 32.4 MEQ/L (21.0-32.0); CREATININE 5.06 MG/DL (0.60-1.30)
[2017-05-09] MEDS ORDERED: oxyCODONE/ACETAMINOPHEN 5 MG/325 MG TAB PO PRN (08:45)
[2017-05-09] MEDS: GABAPENTIN 300 MG CAP PO SCH (09:54)
[2017-05-09] MEDS: CALCITRIOL 0.25 MCG CAP PO SCH (09:54)
[2017-05-09] MEDS: DOCUSATE SODIUM 50 MG/SENNA 8.6 MG TAB PO SCH (09:54)
[2017-05-09] MEDS: CARVEDILOL 12.5 MG TAB PO SCH ×2 (09:55→20:20)
[2017-05-09] MEDS: FUROSEMIDE 40 MG/4 ML VIAL IV PUSH SCH ×2 (09:55→17:45)
[2017-05-09] MEDS: PANTOPRAZOLE SOD 40 MG DELAYED RELEASE TAB PO SCH ×2 (09:55→20:21)
[2017-05-09] MEDS: FERROUS SULFATE 325 MG (65 MG ELEMENTAL IRON) TAB PO SCH ×2 (09:55→20:20)
[2017-05-09] MEDS: CALCIUM ACETATE 667 MG CAP PO SCH ×4 (09:55→20:21)
[2017-05-09] MEDS: hydrALAZINE HCL 100 MG TAB PO SCH ×3 (09:56→17:45)
[2017-05-09] MEDS: amLODIPine BESYLATE 5 MG TAB PO SCH (09:56)
[2017-05-09] MEDS: SODIUM CHLORIDE 0.9% FLUSH 10 ML FLUSH IV FLUSH SCH ×2 (09:56→20:25)
--- NOTE | 2017-05-09 11:04 | PD.VS.CON ---
History of Present Illness Chief Complaint: 57/M on HD, needs AVF access Consult Requested by: Dr. 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 Medications Active Scripts Hydrochlorothiazide (Hydrochlorothiazide) 12.5 Mg Cap, 12.5 MG PO DAILY for Blood Pressure Management, #30 CAP 11 Refills Prov:Paul Bernabe MD 11/08/16 Bumetanide (Bumetanide) 1 Mg Tab, 1 MG PO DAILY for Blood Pressure Management, # 30 TAB Prov:Paul Bernabe MD 11/08/16 Gabapentin (Neurontin) 300 Mg Cap, 300 MG PO DAILY for Build Immunity, #30 CAP Prov:Paul Bernabe MD 11/08/16 Amlodipine (Norvasc) 5 Mg Tab, 10 MG PO DAILY for Blood Pressure Management, # 30 TAB 11 Refills Prov:Paul Bernabe MD 11/08/16 Carvedilol (Coreg) 12.5 Mg Tab, 25 MG PO BID for Blood Pressure Management, #60 TAB 11 Refills Prov:Paul Bernabe MD 11/08/16 Hydralazine (Hydralazine) 100 Mg Tab, 100 MG PO TID for Blood Pressure Management, #90 TAB 11 Refills Take with meals Prov:Paul Bernabe MD 11/08/16 Atorvastatin (Atorvastatin) 80 Mg Tab, 80 MG PO HS for Cholesterol Management, # 30 TAB Prov:Paul Bernabe MD 11/08/16 Cyclobenzaprine (Flexeril) 10 Mg Tab, 10 MG PO TID for Build Immunity, #30 TAB Prov:Paul Bernabe MD 11/08/16 Tamsulosin (Flomax) 0.4 Mg Cap, 0.4 MG PO HS for URO for 30 Days, CAP Prov:Khalif Moraes MD 09/21/16 Clopidogrel (Clopidogrel) 75 Mg Tab, 75 MG PO DAILY for Blood Clot Prevention, # 30 TAB 5 Refills Prov:Rosalba Quintero MD 09/02/16 Amlodipine (Amlodipine) 10 Mg Tab, 10 MG PO DAILY for Blood Pressure Management , #90 TAB 6 Refills Prov:Rosalba Quintero MD 07/22/16 Cholecalciferol (Vitamin D3) 1,000 Unit Tab, 2000 UNITS PO DAILY, #60 TAB Prov:Daina Harper MD, R3 03/15/[address] (Aspirin EC) 81 Mg Tabdr, 81 MG PO DAILY, #30 TAB Prov:Daina Harper MD, R3 03/15/16 Pantoprazole (Protonix) 40 Mg Tab, 40 MG PO DAILY for Reflux, #30 TAB 3 Refills Prov:Rosalba Quintero MD 01/08/16 Reported Medications Hydrocodone-Acetaminophen (Hydrocodone-Acetaminophen) 10-325 mg Tab, 1 TAB PO Q4H Y for PAIN, TAB 0 Refills 05/01/17 Gabapentin (Gabapentin) 600 Mg Tab, 600 MG PO TID, #90 TAB 0 Refills 10/21/16 Mirtazapine (Mirtazapine) 15 Mg Tab, 30 MG PO HS for Depression Control, #30 TAB 0 Refills 06/21/16 Coded Allergies: *MDRO Multi-Drug Resistant Organism (Verified Adverse Reaction, Unknown, ) 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 Review of Systems Constitutional: DENIES: Fever, Chills Physical Exam Vitals/I&O Date Time Temp Pulse Resp B/P (MAP) Pulse Ox O2 Delivery O2 Flow Rate FiO2 05/09/17 08:51 101.1 84 18 165/79 (107) 95 05/09/17 07:54 84 05/09/17 05:34 98.9 75 18 164/89 (114) 98 05/09/17 04:05 75 05/09/17 00:29 99.9 77 18 135/76 (95) 95 05/09/17 00:04 79 05/08/17 21:07 21 05/08/17 20:00 99.7 85 18 127/72 (90) 96 05/08/17 20:00 Room Air 05/08/17 19:45 98.0 81 18 120/57 96 05/08/17 19:44 81 05/08/17 16:25 99.6 80 20 120/66 98 05/08/17 16:05 98.8 78 18 131/63 99 05/08/17 16:00 78 05/08/17 16:00 99.6 79 20 120/66 (84) 97 05/08/17 12:00 99.0 81 20 121/80 (94) 98 05/08/17 12:00 81 Neuro: GCS 15 Pt A&OX3 CN2-12 intact HEENT: Eyes equal/reactive Neck: No JVD distention Heart: RRR Systolic murmur present Lungs: CTA Vascular: Palpable R/L radial pulses present UE 5/5 equal Laboratory Tests Test 05/09/17 07:02 White Blood Count 12.1 Red Blood Count 2.59 Hemoglobin 8.4 Hematocrit 24.6 Mean Corpuscular Volume 94.9 Mean Corpuscular Hemoglobin 32.6 Mean Corpuscular Hemoglobin Concent 34.3 Red Cell Distribution Width 17.1 Platelet Count 219 Mean Platelet Volume 8.1 Neutrophils (%) (Auto) 73.1 Lymphocytes (%) (Auto) 14.1 Monocytes (%) (Auto) 8.4 Eosinophils (%) (Auto) 4.1 Basophils (%) (Auto) 0.3 Neutrophils # (Auto) 8.8 Lymphocytes # (Auto) 1.7 Monocytes # (Auto) 1.0 Eosinophils # (Auto) 0.5 Basophils # (Auto) 0.0 CBC Comment DIFF FINAL Differential Comment Blood Urea Nitrogen 25 Creatinine 5.06 Random Glucose 86 Calcium Level 8.0 Sodium Level 141 Potassium Level 3.8 Chloride Level 105 Carbon Dioxide Level 32.4 Anion Gap 4 Estimat Glomerular Filtration Rate 14 Assessment and Plan Assessment: (1) ESRD (end stage renal disease) on dialysis Plan 57/M w/ ESRD recently started HD (M/W/F) Pt evaluated for an AVF access Pt is RIGHT handed Reviewed vein mapping studies Plan Discussed and reviewed AVF creation w/ pt Questions answered Planning a LEFT brachial/basilic AVF for next week w/ Dr. Morgan AVF can be done as an out pt Rula Hernandez [facility] [phone] Rula Hernandez [facility] May 09, 2017 11:04
--- NOTE | 2017-05-09 12:25 | HHI.NPPN ---
Subjective General Problems: Anemia Renal Failure: End Stage Renal Disease History of Present Illness 57-year-old male with a past medical history of hypertension, history of chronic kidney disease, chronic obstructive pulmonary disease, ischemic heart disease, benign prostatic hypertrophy, congestive heart failure, came to the hospital with complaint of chest pain and generalized weakness. I was called to see the patient because of elevated BUN and creatinine. Additional Remarks Mild SOB and pruritus. Temperature noted at 101.1. BC obtained. (Lluvia Landeros) Review of Systems General Constitutional: Fatigue (Lluvia Landeros) Respiratory Respiratory Remarks Mild SOB (Lluvia Landeros) Cardiovascular Cardiac Remarks Denies CP (Lluvia Landeros) Gastrointestinal GI Remarks No Abdominal pain (Lluvia Landeros) Objective Data Data Vital Signs Date Time Temp Pulse Resp B/P (MAP) Pulse Ox O2 Delivery O2 Flow Rate FiO2 05/09/17 08:51 101.1 84 18 165/79 (107) 95 05/09/17 07:54 84 05/09/17 05:34 98.9 75 18 164/89 (114) 98 05/09/17 04:05 75 05/09/17 00:29 99.9 77 18 135/76 (95) 95 05/09/17 00:04 79 05/08/17 21:07 21 05/08/17 20:00 99.7 85 18 127/72 (90) 96 05/08/17 20:00 Room Air 05/08/17 19:45 98.0 81 18 120/57 96 05/08/17 19:44 81 05/08/17 16:25 99.6 80 20 120/66 98 05/08/17 16:05 98.8 78 18 131/63 99 05/08/17 16:00 78 05/08/17 16:00 99.6 79 20 120/66 (84) 97 (Lluvia Landeros) -: 05/09/17 0702 05/09/17 0702 Microbiology 05/09/17 Aerobic Blood Culture, Received Pending 05/09/17 Anaerobic Blood Culture, Received Pending 05/09/17 Aerobic Blood Culture, Received Pending 05/09/17 Anaerobic Blood Culture, Received Pending Tubes & Lines: Perma-Cath Tubes & Lines Comment right chest wall (Lluvia Landeros) Physical Exam General Appearance: No Acute Distress, Comfortable (Lluvia Landeros) Eyes Eye Exam: Pupils Equal (Lluvia Landeros) Ears & Nose Ears & Nose Exam: Nasal Mucosa [place] (Lluvia Landeros) Throat Throat Exam: Oral Mucosa [place] & Moist (Llvuia Landeros) Neck Neck Exam: Neck Supple, Trachea Midline (Lluvia Landeros) Pulmonary Resp Exam: Breath Sounds Equal, No Distress, Rhonchi, Decreased Bases (Lluvia Landeros) Cardiology CV Exam: Regular, Normal Sinus Rhythm (Lluvia Landeros) Gastrointestinal/Abdomen GI Exam: Soft, Non-Tender, Bowel Sounds Present (Lluvia Landeros) Extremeties Extremities Exam: Trace Edema (Lluvia Landeros) Neurologic Neuro Exam: Alert, Awake, Oriented (Lluvia Landeros) Psychiatric Psych Exam: Appropriate Responses (Lluvia Landeros) Assessment/Plan Assessment Summary: Anemia of CKD, Hypertension, CKD Stage V Problem List: (1) CKD (chronic kidney disease) stage 5, GFR less than 15 ml/min ICD Codes: N18.5 - Chronic kidney disease, stage 5 Status: Chronic Plan: Biopsy report from 03/10/16 showed 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 Patient has advance stage 4-5 chronic kidney disease and is now ESRD Potassium WNL Permacath placement in right chest wall. Epogen 10,000 units ordered with dialysis. Vascular surgery consult and U/S arm for AVF.. Temp of 101.1 blood cultures obtained. Out Patient HD need to be arranged and will need AVF. Dialysis tomorrow Permanent Comment: Last Edited By: Lluvia Landeros on May 04, 2017 11:14 (2) Diastolic CHF ICD Codes: I50.30 - Unspecified diastolic (congestive) heart failure Status: Acute Plan: Lasix BID (3) Monoclonal gammopathy ICD Codes: D47.2 - Monoclonal gammopathy Status: Acute (4) Prostate enlargement ICD Codes: N40.0 - Benign prostatic hyperplasia without lower urinary tract symptoms Status: Chronic (5) Hyperkalemia ICD Codes: E87.5 - Hyperkalemia Status: Acute Plan: Resolved (6) Metabolic acidosis ICD Codes: E87.2 - Acidosis Status: Chronic Plan: Resolved (7) Anemia ICD Codes: D64.9 - Anemia, unspecified Status: Chronic Plan: Epogen with dialysis Plan (Lluvia Landeros) Problem List: (1) CKD (chronic kidney disease) stage 5, GFR less than 15 ml/min ICD Codes: N18.5 - Chronic kidney disease, stage 5 Status: Chronic Plan: Biopsy report from 03/10/16 showed 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 Patient has advance stage 4-5 chronic kidney disease and is now ESRD Potassium WNL Permacath placement in right chest wall. Epogen 10,000 units ordered with dialysis. Vascular surgery consult and U/S arm for AVF.. Temp of 101.1 blood cultures obtained. Out Patient HD need to be arranged and will need AVF. Dialysis tomorrow. Patient seen and examined, agree with above. If spike again , will start antibiotics. Permanent Comment: Last Edited By: Lluvia Landeros on May 04, 2017 11:14 (2) Diastolic CHF ICD Codes: I50.30 - Unspecified diastolic (congestive) heart failure Status: Acute Plan: Lasix BID (3) Monoclonal gammopathy ICD Codes: D47.2 - Monoclonal gammopathy Status: Acute (4) Prostate enlargement ICD Codes: N40.0 - Benign prostatic hyperplasia without lower urinary tract symptoms Status: Chronic (5) Hyperkalemia ICD Codes: E87.5 - Hyperkalemia Status: Acute Plan: Resolved (6) Metabolic acidosis ICD Codes: E87.2 - Acidosis Status: Chronic Plan: Resolved (7) Anemia ICD Codes: D64.9 - Anemia, unspecified Status: Chronic Plan: Epogen with dialysis (Matt Davidson MD) Lluvia Landeros May 09, 2017 12:25 Matt Davidson MD May 09, 2017 18:47
--- NOTE | 2017-05-09 12:43 | RADRPT ---
EXAM DATE/TIME: 05/09/2017 11:58 [facility] COMPARISON: CHEST SINGLE AP, May 01, 2017, 13:02. INDICATIONS : Fever, short of breath MEDICAL HISTORY : Compression fracture. Cardiovascular disease. Hypertension. renal failure, diabetic SURGICAL HISTORY : perm. catheter right side ENCOUNTER: Subsequent ACUITY: 1 week PAIN SCORE: Non-responsive. LOCATION: Bilateral chest FINDINGS: A single view of the chest demonstrates placement of a right-sided Vas-Cath since prior exam. No pneu mothorax or effusion. Heart size mildly enlarged. Minimal basilar atelectasis. CONCLUSION: 1. No acute findings. Minimal basilar atelectasis. Todd Clements MD on May 09, 2017 at 12:40 Board Certified Radiologist. This report was verified electronically.
[2017-05-09 13:17] LABS: HEPATITIS A AB IGM NEGATIVE (NEGATIVE); HEPATITIS B CORE AB IGM NEGATIVE (NEGATIVE)
--- NOTE | 2017-05-09 14:15 | HHI.PR ---
Subjective Remarks Follow up ESRD, anemia. Patient has been febrile today. He denies chest pain, but does have some dyspnea. No urinary symptoms. Still complaining of pain, states that the Percocet does not help completely. Objective Vitals Vital Signs Date Time Temp Pulse Resp B/P (MAP) Pulse Ox O2 Delivery O2 Flow Rate FiO2 05/09/17 12:26 101.3 63 20 133/63 (86) 95 05/09/17 11:54 90 05/09/17 08:51 101.1 84 18 165/79 (107) 95 05/09/17 08:00 Room Air 05/09/17 07:54 84 05/09/17 05:34 98.9 75 18 164/89 (114) 98 05/09/17 04:05 75 05/09/17 00:29 99.9 77 18 135/76 (95) 95 05/09/17 00:04 79 05/08/17 21:07 21 05/08/17 20:00 99.7 85 18 127/72 (90) 96 05/08/17 20:00 Room Air 05/08/17 19:45 98.0 81 18 120/57 96 05/08/17 19:44 81 05/08/17 16:25 99.6 80 20 120/66 98 05/08/17 16:05 98.8 78 18 131/63 99 05/08/17 16:00 78 05/08/17 16:00 99.6 79 20 120/66 (84) 97 I/O 05/08/17 05/08/17 05/08/17 05/09/17 05/09/17 05/09/17 07:00 15:00 23:00 07:00 15:00 23:00 Intake Total 1010 ml Balance 1010 ml Intake Oral 600 ml Packed Cells 400 ml Blood Product IV Normal Saline Flush 10 ml # Voids 3 3 # Bowel Movements 1 Result Diagram: 05/09/1770105/09/17701 Imaging Last Impressions Chest X-Ray 05/09/17 0000 Signed Impressions: Service Date/Time: Tuesday, May 09, 2017 11:58 - CONCLUSION: 1. No acute findings. Minimal basilar atelectasis. Todd Clements MD Upper Extremity Ultrasound 05/07/17 0000 Signed Impressions: Service Date/Time: Sunday, May 07, 2017 20:50 - CONCLUSION: 1. Positive for deep venous thrombosis in the right subclavian vein around the port. No other DVT noted. Todd Clements MD Catheter Placement X-Ray 05/06/17 0000 Signed Impressions: Service Date/Time: Saturday, May 06, 2017 11:55 - CONCLUSION: Uncomplicated PermaCath placement as above. Jaylon Scott Jr., MD Abdomen/Pelvis CT 05/01/17 0000 Signed Impressions: Service Date/Time: Monday, May 01, 2017 13:15 - CONCLUSION: Trace free fluid in the abdomen. Cardiomegaly with trace left pleural effusion No inflammatory changes Garry Mccloud MD FACR Objective Remarks General: No acute distress. Heart: Regular rate and rhythm. 2/6 systolic murmur. Lungs: Clear to auscultation bilaterally. No wheezes, rales, or rhonchi. Breathing is nonlabored. Abdomen: Soft, nontender, nondistended. Extremities: Trace bilateral lower extremity edema. Psych: Alert and oriented. Procedures 05/06/17 Right IJ permacath placement Urinary Catheter: No Vascular Central Line Catheter: No A/P Problem List: (1) GI bleed ICD Code: K92.2 - Gastrointestinal hemorrhage, unspecified Status: Acute (2) CKD (chronic kidney disease) stage 5, GFR less than 15 ml/min ICD Code: N18.5 - Chronic kidney disease, stage 5 Status: Chronic Permanent Comment: Last Edited By: Lluvia Landeros on May 04, 2017 11:14 (3) Chest pain ICD Code: R07.9 - Chest pain, unspecified Status: Acute (4) Hypertension ICD Code: I10 - Essential (primary) hypertension Status: Chronic Assessment and Plan 1. Acute anemia secondary to acute blood loss, renal failure: Monitor labs. No sign of active bleeding. Appreciate GI recommendations. Status post EGD. Continue Protonix. Status post transfusion of 1 unit PRBCs. Hemoglobin improved following transfusion. 2. Mildly elevated troponin: Likely secondary to renal failure. Appreciate cardiology recommendations. 3. Heart murmur: Echocardiogram shows moderate aortic valve stenosis. Appreciate cardiothoracic surgery recommendations. Repeat echo in 6 months. 4. Hyperkalemia: Improved. 5. Chronic kidney disease stage V: Appreciate nephrology recommendations. Patient has agreed to dialysis. Permacath placed. Continue hemodialysis per nephrology. 6. Hypertension: Continue amlodipine, Bumex, carvedilol, HCTZ, hydralazine. 7. Hyperlipidemia: Continue statin. 8. DVT prophylaxis: SCDs. 9. Rash/pruritis: Atarax, Benadryl cream as needed. 10. Fever: No obvious source of infection. Chest x-ray shows no acute findings. Urinalysis ordered. Blood cultures are pending. Tylenol as needed. Discharge Planning Pending clinical improvement. Problem Qualifiers (1) GI bleed: Qualified Codes: K92.2 - Gastrointestinal hemorrhage, unspecified (2) Chest pain: Qualified Codes: R07.9 - Chest pain, unspecified Timoteo Best MD May 09, 2017 14:15
[2017-05-09 18:53] LABS: BACTERIA, URINE RARE /hpf; BILIRUBIN, URINE NEG (NEG); BLOOD, URINE TRACE (NEG); GLUCOSE,URINE TRACE mg/dL (NEG); HYALINE CAST, URINE 1 /lpf (RARE); KETONE, URINE NEG (NEG); NITRITE,URINE NEG (NEG); URINE COLOR YELLOW (YELLW/STRAW); URINE LEUKOCYTE ESTERASE NEG (NEG)
[2017-05-09] MEDS: MIRTAZAPINE 15 MG TAB PO SCH (20:20)
[2017-05-09] MEDS: TAMSULOSIN HCL 0.4 MG CAP PO SCH (20:20)
[2017-05-09] MEDS: ATORVASTATIN 80 MG TAB PO SCH (20:20)
[2017-05-10] VITALS (9 sets, daily range): BP systolic 116–167; BP diastolic 56–80; PULSE 69–106; RESP 17–20; TEMP 98.7–101; O2SAT 96–100
[2017-05-10] MEDS: oxyCODONE/ACETAMINOPHEN 7.5 MG/325 MG TAB PO PRN ×5 (03:29→20:59)
[2017-05-10] MEDS: SODIUM CHLORIDE 0.9% FLUSH 10 ML FLUSH IV FLUSH SCH ×2 (07:27→21:00)
--- NOTE | 2017-05-10 07:30 | PD.CAR.PN ---
CVT Progress Note Subjective/Hospital Course: ECHO with moderate aortic stenosis. Follow up in my office in 6 months with repeat ECHO. Thanks. Objective: Vital Signs Date Time Temp Pulse Resp B/P (MAP) Pulse Ox O2 Delivery O2 Flow Rate FiO2 05/10/17 04:00 Room Air 05/10/17 04:00 72 05/10/17 04:00 99.3 71 18 125/64 (84) 97 05/10/17 00:00 75 05/10/17 00:00 98.7 106 20 116/56 (76) 96 05/09/17 23:42 Room Air 05/09/17 20:39 21 05/09/17 20:00 Room Air 05/09/17 20:00 99.3 86 20 108/57 (74) 97 05/09/17 20:00 83 05/09/17 16:35 98.6 84 20 116/55 (75) 96 05/09/17 16:00 80 05/09/17 15:54 7 05/09/17 12:26 101.3 63 20 133/63 (86) 95 05/09/17 11:54 90 05/09/17 08:51 101.1 84 18 165/79 (107) 95 05/09/17 08:00 Room Air 05/09/17 07:54 84 Result Diagram: 05/09/1770105/09/17701 Bernadine Perez MD May 10, 2017 07:30
[2017-05-10] MEDS: CALCIUM ACETATE 667 MG CAP PO SCH ×3 (08:57→17:19)
[2017-05-10] MEDS: FERROUS SULFATE 325 MG (65 MG ELEMENTAL IRON) TAB PO SCH ×2 (08:57→20:59)
[2017-05-10] MEDS: PANTOPRAZOLE SOD 40 MG DELAYED RELEASE TAB PO SCH ×2 (08:57→20:59)
[2017-05-10] MEDS: amLODIPine BESYLATE 5 MG TAB PO SCH (08:57)
[2017-05-10] MEDS: CALCITRIOL 0.25 MCG CAP PO SCH (08:57)
[2017-05-10] MEDS: DOCUSATE SODIUM 50 MG/SENNA 8.6 MG TAB PO SCH (08:58)
[2017-05-10] MEDS: GABAPENTIN 300 MG CAP PO SCH (08:58)
[2017-05-10] MEDS: CARVEDILOL 12.5 MG TAB PO SCH ×2 (08:58→20:59)
[2017-05-10] MEDS: FUROSEMIDE 40 MG/4 ML VIAL IV PUSH SCH ×2 (08:58→17:19)
[2017-05-10] MEDS: hydrALAZINE HCL 100 MG TAB PO SCH ×3 (09:00→17:19)
--- NOTE | 2017-05-10 11:30 | HHI.PR ---
Subjective Remarks Follow up renal failure, fever, rash. Patient still reporting pruritic rash on ears, hands, leg. Going for dialysis today. No chest pain, dyspnea. Objective Vitals Vital Signs Date Time Temp Pulse Resp B/P (MAP) Pulse Ox O2 Delivery O2 Flow Rate FiO2 05/10/17 09:34 97 21 05/10/17 09:33 Room Air 21 05/10/17 08:00 99.7 83 18 167/80 (109) 96 05/10/17 04:00 Room Air 05/10/17 04:00 72 05/10/17 04:00 99.3 71 18 125/64 (84) 97 05/10/17 00:00 75 05/10/17 00:00 98.7 106 20 116/56 (76) 96 05/09/17 23:42 Room Air 05/09/17 20:39 21 05/09/17 20:00 Room Air 05/09/17 20:00 99.3 86 20 108/57 (74) 97 05/09/17 20:00 83 05/09/17 16:35 98.6 84 20 116/55 (75) 96 05/09/17 16:00 80 05/09/17 15:54 7 05/09/17 12:26 101.3 63 20 133/63 (86) 95 05/09/17 11:54 90 I/O 05/09/17 05/09/17 05/09/17 05/10/17 05/10/17 05/10/17 07:00 15:00 23:00 07:00 15:00 23:00 Output Total 500 ml Balance -500 ml Output Urine Total 500 ml # Voids 1 # Bowel Movements 0 0 Result Diagram: 05/09/17 0702 05/09/17 0702 Imaging Last Impressions Chest X-Ray 05/09/17 0000 Signed Impressions: Service Date/Time: Tuesday, May 09, 2017 11:58 - CONCLUSION: 1. No acute findings. Minimal basilar atelectasis. Todd Clements MD Upper Extremity Ultrasound 05/07/17 0000 Signed Impressions: Service Date/Time: Sunday, May 07, 2017 20:50 - CONCLUSION: 1. Positive for deep venous thrombosis in the right subclavian vein around the port. No other DVT noted. Todd Clements MD Catheter Placement X-Ray 05/06/17 0000 Signed Impressions: Service Date/Time: Saturday, May 06, 2017 11:55 - CONCLUSION: Uncomplicated PermaCath placement as above. Jaylon Scott Jr., MD Abdomen/Pelvis CT 05/01/17 0000 Signed Impressions: Service Date/Time: Monday, May 01, 2017 13:15 - CONCLUSION: Trace free fluid in the abdomen. Cardiomegaly with trace left pleural effusion No inflammatory changes Garry Mccloud MD FACR Objective Remarks General: No acute distress. Heart: Regular rate and rhythm. 2/6 systolic murmur. Lungs: Clear to auscultation bilaterally. No wheezes, rales, or rhonchi. Breathing is nonlabored. Abdomen: Soft, nontender, nondistended. Extremities: Trace bilateral lower extremity edema. Psych: Alert and oriented. Skin: Rash on hands, right leg. Procedures 05/06/17 Right IJ permacath placement Urinary Catheter: No Vascular Central Line Catheter: No A/P Problem List: (1) GI bleed ICD Code: K92.2 - Gastrointestinal hemorrhage, unspecified Status: Acute (2) CKD (chronic kidney disease) stage 5, GFR less than 15 ml/min ICD Code: N18.5 - Chronic kidney disease, stage 5 Status: Chronic Permanent Comment: Last Edited By: Lluvia Landeros on May 04, 2017 11:14 (3) Chest pain ICD Code: R07.9 - Chest pain, unspecified Status: Acute (4) Hypertension ICD Code: I10 - Essential (primary) hypertension Status: Chronic Assessment and Plan 1. Acute anemia secondary to acute blood loss, renal failure: Monitor labs. No sign of active bleeding. Appreciate GI recommendations. Status post EGD. Continue Protonix. Status post transfusion of 1 unit PRBCs. Hemoglobin improved following transfusion. Labs are pending today. 2. Mildly elevated troponin: Likely secondary to renal failure. Appreciate cardiology recommendations. 3. Heart murmur: Echocardiogram shows moderate aortic valve stenosis. Appreciate cardiothoracic surgery recommendations. Repeat echo in 6 months. 4. Hyperkalemia: Improved. 5. Chronic kidney disease stage V: Appreciate nephrology recommendations. Permacath placed. Continue hemodialysis per nephrology (Tue//Tue). 6. Hypertension: Continue amlodipine, Bumex, carvedilol, HCTZ, hydralazine. 7. Hyperlipidemia: Continue statin. 8. DVT prophylaxis: SCDs. 9. Rash/pruritis: Atarax, Benadryl cream as needed. Add clotrimazole cream. 10. Fever: No obvious source of infection. Chest x-ray shows no acute findings. Urinalysis ordered. Blood cultures are pending. Tylenol as needed. Discharge Planning Pending clinical improvement. Problem Qualifiers (1) GI bleed: Qualified Codes: K92.2 - Gastrointestinal hemorrhage, unspecified (2) Chest pain: Qualified Codes: R07.9 - Chest pain, unspecified Timoteo Best MD May 10, 2017 11:30
--- NOTE | 2017-05-10 12:27 | HHI.NPPN ---
Subjective General Problems: Anemia Renal Failure: End Stage Renal Disease History of Present Illness 57-year-old male with a past medical history of hypertension, history of chronic kidney disease, chronic obstructive pulmonary disease, ischemic heart disease, benign prostatic hypertrophy, congestive heart failure, came to the hospital with complaint of chest pain and generalized weakness. I was called to see the patient because of elevated BUN and creatinine. Additional Remarks Mild SOB and pruritus. Patient reports feeling better today. (Lluvia Landeros) Review of Systems General Constitutional: Fatigue (Lluvia Landeros) Respiratory Respiratory Remarks Mild SOB (Lluvia Landeros) Cardiovascular Cardiac Remarks Denies CP (Lluvia Landeros) Gastrointestinal GI Remarks No Abdominal pain (Lluvia Landeros) Objective Data Data Vital Signs Date Time Temp Pulse Resp B/P (MAP) Pulse Ox O2 Delivery O2 Flow Rate FiO2 05/10/17 09:34 97 21 05/10/17 09:33 Room Air 21 05/10/17 08:00 99.7 83 18 167/80 (109) 96 05/10/17 04:00 Room Air 05/10/17 04:00 72 05/10/17 04:00 99.3 71 18 125/64 (84) 97 05/10/17 00:00 75 05/10/17 00:00 98.7 106 20 116/56 (76) 96 05/09/17 23:42 Room Air 05/09/17 20:39 21 05/09/17 20:00 Room Air 05/09/17 20:00 99.3 86 20 108/57 (74) 97 05/09/17 20:00 83 05/09/17 16:35 98.6 84 20 116/55 (75) 96 05/09/17 16:00 80 05/09/17 15:54 7 05/09/17 12:26 101.3 63 20 133/63 (86) 95 (Lluvia Landeros) -: 05/09/17 0702 05/09/17 0702 Tubes & Lines: Perma-Cath Tubes & Lines Comment right chest wall (Lluvia Landeros) Physical Exam General Appearance: No Acute Distress, Comfortable (Lluvia Landeros) Eyes Eye Exam: Pupils Equal (Lluvia Landeros) Ears & Nose Ears & Nose Exam: Nasal Mucosa [place] (Lluvia Landeros) Throat Throat Exam: Oral Mucosa [place] & Moist (Lluvia Landeros) Neck Neck Exam: Neck Supple, Trachea Midline (Lluvia Landeros) Pulmonary Resp Exam: Breath Sounds Equal, No Distress, Rhonchi, Decreased Bases (Llvuia Landeros) Cardiology CV Exam: Regular, Normal Sinus Rhythm (Lluvia Landeros) Gastrointestinal/Abdomen GI Exam: Soft, Non-Tender, Bowel Sounds Present (Lluvia Landeros) Extremeties Extremities Exam: Trace Edema (Lluvia Landeros) Neurologic Neuro Exam: Alert, Awake, Oriented (Lluvia Landeros) Psychiatric Psych Exam: Appropriate Responses (Lluvia Landeros) Assessment/Plan Assessment Summary: Anemia of CKD, Hypertension, CKD Stage V Problem List: (1) CKD (chronic kidney disease) stage 5, GFR less than 15 ml/min ICD Codes: N18.5 - Chronic kidney disease, stage 5 Status: Chronic Plan: Biopsy report from 03/10/16 showed 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 Patient has advance stage 4-5 chronic kidney disease and is now ESRD Potassium WNL Permacath placement in right chest wall. Epogen 10,000 units ordered with dialysis. Vascular surgery consult and U/S arm for AVF.. Temp of 101.1 yesterday blood cultures thus far are negative Out Patient HD need to be arranged and will need AVF. Dialysis today. Labs in AM Permanent Comment: Last Edited By: Lluvia Landeros on May 04, 2017 11:14 (2) Diastolic CHF ICD Codes: I50.30 - Unspecified diastolic (congestive) heart failure Status: Acute Plan: Lasix BID (3) Monoclonal gammopathy ICD Codes: D47.2 - Monoclonal gammopathy Status: Acute (4) Prostate enlargement ICD Codes: N40.0 - Benign prostatic hyperplasia without lower urinary tract symptoms Status: Chronic (5) Hyperkalemia ICD Codes: E87.5 - Hyperkalemia Status: Acute Plan: Resolved (6) Metabolic acidosis ICD Codes: E87.2 - Acidosis Status: Chronic Plan: Resolved (7) Anemia ICD Codes: D64.9 - Anemia, unspecified Status: Chronic Plan: Epogen with dialysis Plan (Lluvia Landeros) Problem List: (1) CKD (chronic kidney disease) stage 5, GFR less than 15 ml/min ICD Codes: N18.5 - Chronic kidney disease, stage 5 Status: Chronic Plan: Biopsy report from 03/10/16 showed 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 Patient has advance stage 4-5 chronic kidney disease and is now ESRD Potassium WNL Permacath placement in right chest wall. Epogen 10,000 units ordered with dialysis. Vascular surgery consult and U/S arm for AVF.. Temp of 101.1 yesterday blood cultures thus far are negative Dialysis today, now afebrile. Labs in AM Patient seen and examined, agree with above. Out patient HD arrangement, and need AVF. Permanent Comment: Last Edited By: Lluvia Landeros on May 04, 2017 11:14 (2) Diastolic CHF ICD Codes: I50.30 - Unspecified diastolic (congestive) heart failure Status: Acute Plan: Lasix BID (3) Monoclonal gammopathy ICD Codes: D47.2 - Monoclonal gammopathy Status: Acute (4) Prostate enlargement ICD Codes: N40.0 - Benign prostatic hyperplasia without lower urinary tract symptoms Status: Chronic (5) Hyperkalemia ICD Codes: E87.5 - Hyperkalemia Status: Acute Plan: Resolved (6) Metabolic acidosis ICD Codes: E87.2 - Acidosis Status: Chronic Plan: Resolved (7) Anemia ICD Codes: D64.9 - Anemia, unspecified Status: Chronic Plan: Epogen with dialysis (Matt Davidson MD) Lluvia Landeros May 10, 2017 12:27 Matt Davidson MD May 10, 2017 20:39
[2017-05-10 13:08] LABS: AUTOMATED NEUTROPHIL # 8.3 TH/MM3 (1.8-7.7); BASOPHIL % 0.3 % (0.0-2.0); EOSINOPHIL # 0.5 TH/MM3 (0-0.4); EOSINOPHIL % 4.1 % (0.0-4.0); HEMATOCRIT 21.5 % (39.0-51.0); HEMOGLOBIN 7.6 GM/DL (13.0-17.0); LYMPH % 12.7 % (9.0-44.0); LYMPHOCYTE # 1.4 TH/MM3 (1.0-4.8); MEAN CELL VOLUME 96.1 FL (80.0-100.0); MEAN CORPUSCULAR HGB CONC 35.4 % (32.0-36.0); MEAN PLATELET VOLUME 8.1 FL (7.0-11.0); MONO % 9.7 % (0.0-8.0); MONOCYTE # 1.1 TH/MM3 (0-0.9); NEUT % 73.2 % (16.0-70.0); PLATELET COUNT 231 TH/MM3 (150-450); RED BLOOD COUNT 2.24 MIL/MM3 (4.50-5.90); RED CELL DISTRIBUTION WIDTH 16.8 % (11.6-17.2); WHITE BLOOD COUNT 11.3 TH/MM3 (4.0-11.0)
[2017-05-10 13:26] LABS: BICARBONATE 27.1 MEQ/L (21.0-32.0); CREATININE 5.85 MG/DL (0.60-1.30)
[2017-05-10] MEDS: HEPARIN SODIUM - IV 10,000 UNITS/10 ML VIAL PRN (16:53)
[2017-05-10] MEDS: GENTAMICIN SULFATE 20 MG/2 ML VIAL OTHER PRN (16:53)
[2017-05-10] MEDS: EPOETIN ALFA 10,000 UNITS/ML VIAL IV PUSH PRN (16:54)
[2017-05-10] MEDS: CLOTRIMAZOLE 1% CREAM 15 GM TOPICAL SCH ×2 (17:20→21:10)
[2017-05-10] MEDS: ATORVASTATIN 80 MG TAB PO SCH (20:59)
[2017-05-10] MEDS: TAMSULOSIN HCL 0.4 MG CAP PO SCH (20:59)
[2017-05-10] MEDS: MIRTAZAPINE 15 MG TAB PO SCH (21:09)
[2017-05-11] VITALS (12 sets, daily range): BP systolic 107–132; BP diastolic 57–77; PULSE 66–80; RESP 17–18; TEMP 97.8–99.3; O2SAT 96–100
[2017-05-11] MEDS: oxyCODONE/ACETAMINOPHEN 7.5 MG/325 MG TAB PO PRN ×5 (03:12→21:50)
[2017-05-11] MEDS: SODIUM CHLORIDE 0.9% FLUSH 10 ML FLUSH IV FLUSH SCH ×2 (07:29→21:55)
[2017-05-11] MEDS: CALCITRIOL 0.25 MCG CAP PO SCH (07:55)
[2017-05-11] MEDS: CARVEDILOL 12.5 MG TAB PO SCH ×2 (07:55→21:49)
[2017-05-11] MEDS: DOCUSATE SODIUM 50 MG/SENNA 8.6 MG TAB PO SCH (07:55)
[2017-05-11] MEDS: GABAPENTIN 300 MG CAP PO SCH (07:56)
[2017-05-11] MEDS: CALCIUM ACETATE 667 MG CAP PO SCH ×3 (07:56→18:03)
[2017-05-11] MEDS: PANTOPRAZOLE SOD 40 MG DELAYED RELEASE TAB PO SCH ×2 (07:56→21:50)
[2017-05-11] MEDS: FUROSEMIDE 40 MG/4 ML VIAL IV PUSH SCH ×2 (07:56→18:03)
[2017-05-11] MEDS: FERROUS SULFATE 325 MG (65 MG ELEMENTAL IRON) TAB PO SCH ×2 (07:56→21:49)
[2017-05-11] MEDS: amLODIPine BESYLATE 5 MG TAB PO SCH (07:56)
[2017-05-11] MEDS: hydrALAZINE HCL 100 MG TAB PO SCH ×3 (07:56→18:03)
[2017-05-11] MEDS: CLOTRIMAZOLE 1% CREAM 15 GM TOPICAL SCH ×2 (07:57→21:54)
[2017-05-11 08:48] LABS: BASOPHIL # 0.1 TH/MM3 (0-0.2); BASOPHIL % 0.6 % (0.0-2.0); EOSINOPHIL # 0.5 TH/MM3 (0-0.4); EOSINOPHIL % 5.1 % (0.0-4.0); HEMATOCRIT 21.9 % (39.0-51.0); HEMOGLOBIN 7.4 GM/DL (13.0-17.0); LYMPH % 21.9 % (9.0-44.0); LYMPHOCYTE # 2.2 TH/MM3 (1.0-4.8); MEAN CELL VOLUME 95.4 FL (80.0-100.0); MEAN CORPUSCULAR HEMOGLOBIN 32.2 PG (27.0-34.0); MEAN CORPUSCULAR HGB CONC 33.7 % (32.0-36.0); MEAN PLATELET VOLUME 8.2 FL (7.0-11.0); MONO % 12.5 % (0.0-8.0); MONOCYTE # 1.2 TH/MM3 (0-0.9); NEUT % 59.9 % (16.0-70.0); PLATELET COUNT 226 TH/MM3 (150-450); RED BLOOD COUNT 2.29 MIL/MM3 (4.50-5.90); RED CELL DISTRIBUTION WIDTH 16.3 % (11.6-17.2)
[2017-05-11 09:23] LABS: BICARBONATE 30.1 MEQ/L (21.0-32.0); CALCIUM 8.2 MG/DL (8.5-10.1); CREATININE 4.47 MG/DL (0.60-1.30); PHOSPHORUS 3.2 MG/DL (2.5-4.9)
--- NOTE | 2017-05-11 10:08 | HHI.NPPN ---
Subjective General Problems: Anemia Renal Failure: End Stage Renal Disease History of Present Illness 57-year-old male with a past medical history of hypertension, history of chronic kidney disease, chronic obstructive pulmonary disease, ischemic heart disease, benign prostatic hypertrophy, congestive heart failure, came to the hospital with complaint of chest pain and generalized weakness. I was called to see the patient because of elevated BUN and creatinine. Additional Remarks Mild SOB and continues to complain of pruritus (Lluvia Landeros) Review of Systems General Constitutional: Fatigue (Lluvia Landeros) Respiratory Respiratory Remarks Mild SOB (Lluvia Landeros) Cardiovascular Cardiac Remarks Denies CP (Lluvia Landeros) Gastrointestinal GI Remarks No Abdominal pain (Lluvia Landeros) Objective Data Data Vital Signs Date Time Temp Pulse Resp B/P (MAP) Pulse Ox O2 Delivery O2 Flow Rate FiO2 05/11/17 08:00 97.8 77 18 125/77 (93) 96 05/11/17 04:15 99.3 74 17 128/60 (82) 97 05/11/17 04:00 73 05/11/17 00:34 98.6 74 17 107/57 (74) 100 05/11/17 00:14 Room Air 05/11/17 00:00 79 05/10/17 21:26 21 05/10/17 21:00 Room Air 05/10/17 20:59 99.6 83 17 116/60 (78) 100 05/10/17 20:00 80 05/10/17 17:22 101.0 85 17 135/69 (91) 96 05/10/17 16:00 77 05/10/17 12:00 75 05/10/17 12:00 99.1 69 20 123/60 (81) 99 (Lluvia Landeros) -: 05/11/17 0630 05/11/17 0630 Tubes & Lines: Perma-Cath Tubes & Lines Comment right chest wall (Lluvia Landeros) Physical Exam General Appearance: No Acute Distress, Comfortable (Lluvia Landeros) Eyes Eye Exam: Pupils Equal (Lluvia Landeros) Ears & Nose Ears & Nose Exam: Nasal Mucosa Baxter (Lluvia Landeros) Throat Throat Exam: Oral Mucosa Baxter & Moist (Lluvia Landeros) Neck Neck Exam: Neck Supple, Trachea Midline (Lluvia Landeros) Pulmonary Resp Exam: Breath Sounds Equal, No Distress, Rhonchi, Decreased Bases (Lluvia Landeros) Cardiology CV Exam: Regular, Normal Sinus Rhythm (Lluvia Landeros) Gastrointestinal/Abdomen GI Exam: Soft, Non-Tender, Bowel Sounds Present (Lluvia Landeros) Extremeties Extremities Exam: Trace Edema (Lluvia Landeros) Neurologic Neuro Exam: Alert, Awake, Oriented (Lluvia Landeros) Psychiatric Psych Exam: Appropriate Responses (Lluvia Landeros) Assessment/Plan Assessment Summary: Anemia of CKD, Hypertension, CKD Stage V Problem List: (1) CKD (chronic kidney disease) stage 5, GFR less than 15 ml/min ICD Codes: N18.5 - Chronic kidney disease, stage 5 Status: Chronic Plan: Biopsy report from 03/10/16 showed 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 Patient has advance stage 4-5 chronic kidney disease and is now ESRD Potassium WNL Permacath placement in right chest wall. Plan Continue Epogen 10,000 units with dialysis. Continue PhosLo and Calcitrol Vascular surgery consult and U/S arm for AVF. Dialysis yesterday 4 liters removed Emollient ordered for pruritus Out patient HD arrangement, and need AVF. Permanent Comment: Last Edited By: Lluvia Landeros on May 04, 2017 11:14 (2) Diastolic CHF ICD Codes: I50.30 - Unspecified diastolic (congestive) heart failure Status: Acute Plan: Lasix BID (3) Monoclonal gammopathy ICD Codes: D47.2 - Monoclonal gammopathy Status: Acute (4) Prostate enlargement ICD Codes: N40.0 - Benign prostatic hyperplasia without lower urinary tract symptoms Status: Chronic (5) Hyperkalemia ICD Codes: E87.5 - Hyperkalemia Status: Acute Plan: Resolved (6) Metabolic acidosis ICD Codes: E87.2 - Acidosis Status: Chronic Plan: Resolved (7) Anemia ICD Codes: D64.9 - Anemia, unspecified Status: Chronic Plan: Epogen with dialysis Plan (Lluvia Landeros) Problem List: (1) CKD (chronic kidney disease) stage 5, GFR less than 15 ml/min ICD Codes: N18.5 - Chronic kidney disease, stage 5 Status: Chronic Plan: Biopsy report from 03/10/16 showed 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 Patient has advance stage 4-5 chronic kidney disease and is now ESRD Potassium WNL Permacath placement in right chest wall. Plan Continue Epogen 10,000 units with dialysis. Continue PhosLo and Calcitrol Vascular surgery consult and U/S arm for AVF. Dialysis yesterday 4 liters removed Emollient ordered for pruritus Out patient HD arrangement, and need AVF. Patient seen and examined, agree with above. D/W the trimming caser, working on out patient HD arrangement. Permanent Comment: Last Edited By: Lluvia Landeros on May 04, 2017 11:14 (2) Diastolic CHF ICD Codes: I50.30 - Unspecified diastolic (congestive) heart failure Status: Acute Plan: Lasix BID (3) Monoclonal gammopathy ICD Codes: D47.2 - Monoclonal gammopathy Status: Acute (4) Prostate enlargement ICD Codes: N40.0 - Benign prostatic hyperplasia without lower urinary tract symptoms Status: Chronic (5) Hyperkalemia ICD Codes: E87.5 - Hyperkalemia Status: Acute Plan: Resolved (6) Metabolic acidosis ICD Codes: E87.2 - Acidosis Status: Chronic Plan: Resolved (7) Anemia ICD Codes: D64.9 - Anemia, unspecified Status: Chronic Plan: Epogen with dialysis (Matt Davidson MD) Lluvia Landeros May 11, 2017 10:08 Matt Davidson MD May 11, 2017 22:02
[2017-05-11] MEDS ORDERED: EUCERIN CREAM 120 GM JAR TOPICAL PRN (10:15)
--- NOTE | 2017-05-11 12:59 | HHI.PR ---
Subjective Remarks Follow-up for multiple complaints and assessment plan Initially patient had no complaints. When I start examining him he started complaining of chest pain. He has some when it started he stated that he has been having chest pain for a while. Chest pain is chronic. Nothing makes it worse or better. Otherwise no other complaints. Objective Vitals Vital Signs Date Time Temp Pulse Resp B/P (MAP) Pulse Ox O2 Delivery O2 Flow Rate FiO2 05/11/17 12:00 98.5 69 18 117/73 (88) 98 05/11/17 08:00 97.8 77 18 125/77 (93) 96 05/11/17 04:15 99.3 74 17 128/60 (82) 97 05/11/17 04:00 73 05/11/17 00:34 98.6 74 17 107/57 (74) 100 05/11/17 00:14 Room Air 05/11/17 00:00 79 05/10/17 21:26 21 05/10/17 21:00 Room Air 05/10/17 20:59 99.6 83 17 116/60 (78) 100 05/10/17 20:00 80 05/10/17 17:22 101.0 85 17 135/69 (91) 96 05/10/17 16:00 77 I/O 05/10/17 05/10/17 05/10/17 05/11/17 05/11/17 05/11/17 07:00 15:00 23:00 07:00 15:00 23:00 Intake Total 480 ml 240 ml Output Total 500 ml 3500 ml 350 ml Balance -500 ml -3020 ml -110 ml Intake Oral 480 ml 240 ml Output Urine Total 500 ml 500 ml 350 ml Hemodialysis 3000 ml # Bowel Movements 0 Result Diagram: 05/11/17 0630 05/11/17 0630 Objective Remarks GENERAL: in NAD CARDIOVASCULAR: Regular rate and rhythm. Positive for heart murmur. Chest pain reproducible with palpation of his anterior chest. RESPIRATORY: Breath sounds equal bilaterally. No accessory muscle use. GASTROINTESTINAL: Abdomen soft, non-tender, nondistended. MUSCULOSKELETAL: No cyanosis, or edema. BACK: Nontender without obvious deformity. No CVA tenderness. Procedures 05/06/17 Right IJ permacath placement Medications and IVs Current Medications Morphine Sulfate (Morphine Inj) 4 mg ONCE ONCE IV PUSH Last administered on 05/01/17at 13:25; Start 05/01/17 at 13:00; Stop 05/01/17 at 13:01; Status DC Calcium Gluconate 1 gm/Dextrose 110 ml @ 110 mls/hr ONCE ONCE IV Last administered on 05/01/17at 16:34; Start 05/01/17 at 15:00; Stop 05/01/17 at 15:59; Status DC Pantoprazole Sodium (Protonix Inj) 40 mg ONCE ONCE IV PUSH Last administered on 05/01/17 16:34; Start 05/01/17 at 16:15; Stop 05/01/17 at 16:16; Status DC Sodium Chloride (NS Flush) 2 ml UNSCH PRN IV FLUSH FLUSH AFTER USING IV ACCESS ; Start 05/01/17 at 16:45 Sodium Chloride (NS Flush) 2 ml BID IV FLUSH Last administered on 05/11/17at 07: 29; Start 05/01/17 at 21:00 Acetaminophen (Tylenol) 650 mg Q4H PRN PO TEMP > 100.4 or Pain 1-2 Last administered on 05/10/17at 17:30; Start 05/01/17 at 16:45 Ondansetron HCl (Zofran Inj) 4 mg Q6H PRN IVP NAUSEA OR VOMITING; Start at 16:45 Naloxone HCl (Narcan Inj) 0.4 mg UNSCH PRN IV PUSH SEE LABEL COMMENTS; Start at 16:45 Magnesium Hydroxide (Milk Of Magnesia Liq) 30 ml Q12H PRN PO Mild constipation ; Start 05/01/17 at 16:45 Sennosides (Senokot) 17.2 mg Q12H PRN PO Moderate constipation; Start 05/01/17 at 16:45 Bisacodyl (Dulcolax Supp) 10 mg DAILY PRN RECTAL SEVERE CONSITIPATION; Start at 16:45 Morphine Sulfate (Morphine Inj) 4 mg ONCE ONCE IV PUSH Last administered on 05/01/17at 16:57; Start 05/01/17 at 17:00; Stop 05/01/17 at 17:01; Status DC Diphenhydramine HCl (Benadryl) 25 mg ONCE ONCE PO Last administered on at 20:30; Start 05/01/17 at 20:30; Stop 05/01/17 at 20:34; Status DC Influenza Virus Vaccine (Flu (Quadrivalent) Vaccine Inj) 0.5 ml ONCE ONCE IM Last administered on 05/02/17at 09:26; Start 05/02/17 at 10:00; Stop 05/02/17 at 10: 01; Status DC Amlodipine Besylate (Norvasc) 10 mg DAILY PO ; Start 05/02/17 at 09:00; Stop 05/02 at 14:12; Status DC Amlodipine Besylate (Norvasc) 10 mg DAILY PO Last administered on 05/11/17at 07: 56; Start 05/02/17 at 09:00 Aspirin (Ecotrin Ec) 81 mg DAILY PO ; Start 05/02/17 at 09:00; Stop 05/02/17 at 09 :00; Status DC Atorvastatin Calcium (Lipitor) 80 mg HS PO Last administered on 05/10/17at 20:59 ; Start 05/01/17 at 23:00 Bumetanide (Bumetanide) 1 mg DAILY PO Last administered on 05/02/17at 08:01; Start 05/02/17 at 09:00; Stop 05/02/17 at 14:18; Status DC Carvedilol (Coreg) 25 mg BID PO Last administered on 05/11/17at 07:55; Start 05/01/17 at 23:00 Clopidogrel Bisulfate (Plavix) 75 mg DAILY PO Last administered on 05/02/17at 08: 01; Start 05/02/17 at 09:00; Stop 05/02/17 at 09:18; Status DC Gabapentin (Neurontin) 600 mg TID PO Last administered on 05/03/17at 11:55; Start 05/02/17 at 09:00; Stop 05/03/17 at 16:04; Status DC Hydralazine HCl (Apresoline) 100 mg TID PO Last administered on 05/11/17at 12:02 ; Start 05/02/17 at 09:00 Hydrochlorothiazide (Microzide) 12.5 mg DAILY PO Last administered on 05/02/17at 08:00; Start 05/02/17 at 09:00; Stop 05/02/17 at 15:42; Status DC Acetaminophen/ Hydrocodone Bitart ([place] 10-325 Mg) 1 tab Q4H PRN PO PAIN Last administered on 05/04/17 09:43; Start 05/01/17 at 23:00; Stop 05/04/17 at 13:38; Status DC Mirtazapine (Remeron) 30 mg HS PO Last administered on 05/10/17 21:09; Start 05/01/17 at 23:00 Pantoprazole Sodium (Protonix) 40 mg DAILY PO ; Start 05/02/17 at 09:00; Status Cancel Tamsulosin HCl (Flomax) 0.4 mg HS PO Last administered on 05/10/17at 20:59; Start 05/01/17 at 23:00 Pantoprazole Sodium 80 mg/ Sodium Chloride 100 ml @ 10 mls/hr CONTINUOUS IV Last administered on 05/02/17 01:07; Start 05/02/17 at 01:00; Stop 05/02/17 at 09: 20; Status DC Sodium Polystyrene Sulfonate (Kayexalate Liq) 15 gm QID PO Last administered on 05/02/17 21:36; Start 05/02/17 at 09:00; Stop 05/02/17 at 21:01; Status DC Albuterol Sulfate (Albuterol Concentrated Neb) 10 mg ONCE ONCE INH Last administered on 05/02/17at 09:32; Start 05/02/17 at 09:00; Stop 05/02/17 at 09:01; Status DC Insulin Human Regular 10 units/ Dextrose 500.1 ml @ 500 mls/hr Q1H1M IV Last administered on 05/02/17at 09:40; Start 05/02/17 at 09:00; Stop 05/03/17 at 10:01; Status DC Pantoprazole Sodium (Protonix) 40 mg Q12HR PO Last administered on 05/11/17at 07 :56; Start 05/02/17 at 10:00 Sodium Chloride 250 ml @ 15 mls/hr ONCE ONCE IV Last administered on at 16:03; Start 05/02/17 at 09:30; Stop 05/03/17 at 02:09; Status DC Acetaminophen (Tylenol) 650 mg Q4H PRN PO SEE LABEL COMMENTS Last administered on 05/02/17at 15:05; Start 05/02/17 at 09:30; Stop 05/02/17 at 23:59; Status DC Diphenhydramine HCl (Benadryl) 25 mg Q4H PRN PO SEE LABEL COMMENTS Last administered on 05/02/17at 15:05; Start 05/02/17 at 09:30; Stop 05/02/17 at 23:59; Status DC Sodium Bicarbonate (Sodium Bicarbonate) 650 mg Q8HR PO Last administered on 01/15at 04:38; Start 05/02/17 at 15:15; Stop 05/08/17 at 10:29; Status DC Furosemide (Lasix Inj) 40 mg BID@09,18 IV PUSH Last administered on 05/11/17at 07:56; Start 05/02/17 at 18:00 Metoprolol Tartrate (Lopressor) 25 mg STK-MED ONCE .ROUTE Last administered on 05/03/17at 08:35; Start 05/03/17 at 08:35; Stop 05/03/17 at 08:36; Status DC Lactated Ringer's 1,000 ml @ 30 mls/hr Q24H PRN IV SEE LABEL COMMENTS; Start at 10:00; Stop 05/06/17 at 09:59; Status DC Sodium Chloride 500 ml @ 30 mls/hr [id number] PRN IV SEE LABEL COMMENTS; Start 05/03/17 at 10:00; Stop 05/06/17 at 09:59; Status DC Metoprolol Tartrate (Lopressor) 25 mg SPOOL SANDER PRN PO SEE LABEL COMMENTS; Start 05/03/17 at 10:00; Stop 05/06/17 at 09:59; Status DC Povidone Iodine (Betadine 5% Antisepsis Kit) 1 applic SPOOL SANDER PRN EACH NARE SEE LABEL COMMENTS; Start 05/03/17 at 10:00; Stop 05/06/17 at 09:59; Status DC Chlorhexidine Gluconate (Chlorhexidine 2% Cloth) 3 pack SPOOL SANDER PRN TOPICAL SEE LABEL COMMENTS; Start 05/03/17 at 10:00; Stop 05/06/17 at 09:59; Status DC Insulin Human Regular (NovoLIN R INJ) See Protocol Table ... SPOOL SANDER PRN SQ SEE PROTOCOL TABLE; Start 05/03/17 at 10:00; Stop 05/06/17 at 09:59; Status DC Gabapentin (Neurontin) 300 mg DAILY PO Last administered on 05/11/17at 07:56; Start 05/04/17 at 09:00 Propofol (Diprivan 200 Mg/20 ml Inj) 200 mg STK-MED ONCE IV ; Start 05/03/17 at 12:00; Stop 05/04/17 at 10:40; Status DC Lidocaine HCl (Xylocaine-Mpf 1% Inj) 5 ml STK-MED ONCE OTHER ; Start 05/03/17 at 12:00; Stop 05/04/17 at 10:40; Status DC Phenylephrine HCl (Neosynephrine/ NS 1000 Mcg/10ml Syr) 1,000 mcg STK-MED ONCE IV ; Start 05/03/17 at 12:00; Stop 05/04/17 at 10:40; Status DC Calcium Acetate (Phoslo) 667 mg TID PO Last administered on 05/11/17at 12:02; Start 05/04/17 at 13:00 Oxycodone/ Acetaminophen (Percocet 7.5-325 Mg) 1 tab Q4H PRN PO PAIN SCALE 3 TO 10 Last administered on 05/09/17at 05:37; Start 05/04/17 at 13:45; Stop at 08:40; Status DC Vancomycin HCl 1000 mg/Sodium Chloride 250 ml @ 250 mls/hr SPOOL SANDER IV Last administered on 05/06/17at 11:15; Start 05/05/17 at 17:15; Stop 05/09/17 at 17:14; Status DC Cefazolin Sodium/ Dextrose 50 ml @ 100 mls/hr SPOOL SANDER IV ; Start 05/05/17 at 17 :15; Stop 05/09/17 at 17:14; Status DC Sodium Chloride 1,000 ml @ 0 mls/hr Q0M PRN OTHER For Prime & Rinse Back; Start 05/06/17 at 09:23 Heparin Sodium (Porcine) (Heparin Inj) 8,000 units UNSCH PRN IV FLUSH WITH DIALYSIS; Start 05/06/17 at 09:30 Sodium Chloride 1,000 ml @ 200 mls/hr Q5H PRN IV WITH DIALYSIS; Start 05/06/17 at 09:23 Sodium Chloride 1,000 ml @ 0 mls/hr Q0M PRN OTHER WITH DIALYSIS; Start 05/06/17 at 09:23 Mannitol (Mannitol Inj) 12.5 gm UNSCH PRN IV WITH DIALYSIS; Start 05/06/17 at 09 :30 Albumin Human 100 ml @ 60 mls/hr UNSCH PRN IV WITH DIALYSIS; Start 05/06/17 at 09:30 Sodium Chloride (NS Flush) 5 ml UNSCH PRN IV FLUSH WITH DIALYSIS; Start at 09:30 Heparin Sodium (Porcine) (Heparin Inj) UNSCH PRN .XX WITH DIALYSIS Last administered on 05/10/17at 16:53; Start 05/06/17 at 09:30 Gentamicin Sulfate (Gentamicin Inj) 20 mg UNSCH PRN OTHER WITH DIALYSIS Last administered on 05/10/17at 16:53; Start 05/06/17 at 09:30 Ondansetron HCl (Zofran Inj) 4 mg UNSCH PRN IV PUSH WITH DIALYSIS; Start at 09:30 Acetaminophen (Tylenol) 650 mg UNSCH PRN PO for headach, pain, temp > 101F; Start 05/06/17 at 09:30 Diphenhydramine HCl (Benadryl) 25 mg UNSCH PRN PO for hives/itching/anaphylaxis ; Start 05/06/17 at 09:30 Nitroglycerin (Nitrostat Sl) 0.4 mg UNSCH PRN SL CHEST PAIN; Start 05/06/17 at 09:30 Clonidine (Catapres) 0.1 mg UNSCH PRN PO for BP > 180/100 X 2 readings; Start 05/06/17 at 09:30 Epoetin Salvatore (Epogen Inj) 10,000 units UNSCH PRN IV PUSH WITH DIALYSIS Last administered on 05/10/17at 16:54; Start 05/06/17 at 09:30 Gelatin (Gelfoam 12 Mm/7 Mm Top) 1 foam UNSCH PRN TOP SEE LABEL COMMENTS; Start 05/06/17 at 09:30 Hydroxyzine HCl (Atarax) 25 mg Q6H PRN PO Itching Last administered on at 08:40; Start 05/06/17 at 09:30 Calcitriol (Rocaltrol) 0.25 mcg DAILY PO Last administered on 05/11/17at 07:55; Start 05/07/17 at 09:00 Fentanyl Citrate (fentaNYL INJ) 100 mcg STK-MED ONCE .ROUTE ; Start 05/06/17 at 12:20; Stop 05/06/17 at 12:21; Status DC Fentanyl Citrate (fentaNYL INJ) 100 mcg STK-MED ONCE .ROUTE ; Start 05/06/17 at 12:20; Stop 05/06/17 at 12:21; Status DC Midazolam HCl (Versed Inj) 4 mg STK-MED ONCE .ROUTE ; Start 05/06/17 at 12:20; Stop 05/06/17 at 12:21; Status DC Heparin Sodium (Porcine) (*HEPARIN INJ Periprocedural ONLY) 10,000 units STK- MED ONCE .ROUTE Last administered on 05/06/17at 12:55; Start 05/06/17 at 12:23; Stop 05/06/17 at 12:24; Status DC Lidocaine/ Epinephrine (Xylocaine-Epi 1%-1:100,000 Inj) 30 ml STK-MED ONCE .ROUTE Last administered on 05/06/17at 12:50; Start 05/06/17 at 12:23; Stop at 12:24; Status DC Sodium Chloride (NS Flush) UNSCH PRN IV FLUSH SEE PROTOCOL; Start 05/06/17 at 13:15 Heparin Sodium (Porcine) (Heparin Inj) UNSCH PRN IV FLUSH SEE PROTOCOL; Start 05/06/17 at 13:15 Diphenhydramine HCl (Benadryl 2% Cream) 1 applic TID PRN TOPICAL ITCHING Last administered on 05/07/17at 18:54; Start 05/07/17 at 10:45 Sodium Chloride 250 ml @ 15 mls/hr ONCE ONCE IV Last administered on at 15:58; Start 05/08/17 at 09:00; Stop 05/09/17 at 01:39; Status DC Ferrous Sulfate (Ferrous Sulfate) 325 mg BID PO Last administered on 05/11/17 07:56; Start 05/08/17 at 11:15 Senna/Docusate Sodium ([place]-Colace) 1 tab DAILY PO Last administered on at 07:55; Start 05/08/17 at 11:15 Oxycodone/ Acetaminophen (Percocet 7.5-325 Mg) 1 tab Q4H PRN PO PAIN SCALE 7 TO 10 Last administered on 05/11/17at 12:05; Start 05/09/17 at 08:45 Oxycodone/ Acetaminophen (Percocet 5-325 Mg) 1 tab Q4H PRN PO PAIN SCALE 3 TO 6; Start 05/09/17 at 08:45 Clotrimazole (Lotrimin 1% Cream) 1 applic Q12HR TOPICAL Last administered on at 07:57; Start 05/10/17 at 14:00 Multi-Ingredient Ointment (Eucerin Cream) 1 applic Q6H PRN TOPICAL dry skin; Start 05/11/17 at 10:15 A/P Problem List: (1) GI bleed ICD Code: K92.2 - Gastrointestinal hemorrhage, unspecified Status: Acute (2) CKD (chronic kidney disease) stage 5, GFR less than 15 ml/min ICD Code: N18.5 - Chronic kidney disease, stage 5 Status: Chronic Permanent Comment: Last Edited By: Lluvia Landeros on May 04, 2017 11:14 (3) Chest pain ICD Code: R07.9 - Chest pain, unspecified Status: Acute (4) Hypertension ICD Code: I10 - Essential (primary) hypertension Status: Chronic Assessment and Plan This is a 57 y/o Acute anemia secondary to acute blood loss, renal failure: Monitor labs. - No sign of active bleeding. Appreciate GI recommendations. Status post EGD. Continue Protonix. Status post transfusion of 1 unit PRBCs. Hemoglobin is stable. Mildly elevated troponin: Likely secondary to renal failure. Appreciate cardiology recommendations. Atypical chest pain -This is reproducible. Most likely musculoskeletal. Can give Tylenol as needed for pain. Need to avoid NSAIDs due to acute renal failure. Heart murmur: -Echocardiogram shows moderate aortic valve stenosis. Appreciate cardiothoracic surgery recommendations. Repeat echo in 6 months. Hyperkalemia: Improved. Chronic kidney disease stage V - Appreciate nephrology recommendations. Permacath placed. Continue hemodialysis per nephrology (Tue//Tue). -Per carbon cleaner patient had a biopsy on 03/10/2016 showed nodular glomerular sclerosis with a membranoproliferative pattern, severe interstitial fibrosis, severe arteriosclerosis, severe arteriolar hyalinosis, but without immune deposits or myeloma casts. -Continue Epogen 10,000 units with dialysis and PhosLo and Calcitrol -Vascular surgery consult and U/S arm for AVF. Dialysis yesterday 4 liters removed Hypertension - Continue amlodipine, Bumex, carvedilol, HCTZ, hydralazine. Hyperlipidemia -Continue statin. Rash/pruritis: Improving. Atarax, Benadryl cream as needed. Add clotrimazole cream. Emollient ordered for pruritus Fever on 05/10/2017 - No obvious source of infection. Chest x-ray shows no acute findings. UA does not suggest UTI he is asymptomatic. Pending blood cultures. Patient has not had any fever since then. Continue to monitor clinically off of antibiotics. DVT prophylaxis: SCDs. Discharge Planning Patient will need outpatient dialysis arrangement. Problem Qualifiers (1) GI bleed: Qualified Codes: K92.2 - Gastrointestinal hemorrhage, unspecified (2) Chest pain: Qualified Codes: R07.9 - Chest pain, unspecified Wandy Hernandez MD May 11, 2017 12:59
[2017-05-11] MEDS: TAMSULOSIN HCL 0.4 MG CAP PO SCH (21:49)
[2017-05-11] MEDS: ATORVASTATIN 80 MG TAB PO SCH (21:49)
[2017-05-11] MEDS: MIRTAZAPINE 15 MG TAB PO SCH (21:50)
[2017-05-12] VITALS (13 sets, daily range): BP systolic 107–139; BP diastolic 56–80; PULSE 68–79; RESP 16–20; TEMP 97.4–99.7; O2SAT 95–100
[2017-05-12] MEDS: oxyCODONE/ACETAMINOPHEN 7.5 MG/325 MG TAB PO PRN ×3 (04:40→18:36)
[2017-05-12 08:16] LABS: HEMOGLOBIN 8.4 GM/DL (13.0-17.0); MEAN CELL VOLUME 95.4 FL (80.0-100.0); MEAN CORPUSCULAR HEMOGLOBIN 32.2 PG (27.0-34.0); MEAN CORPUSCULAR HGB CONC 33.8 % (32.0-36.0); MEAN PLATELET VOLUME 8.3 FL (7.0-11.0); PLATELET COUNT 292 TH/MM3 (150-450); RED BLOOD COUNT 2.62 MIL/MM3 (4.50-5.90); RED CELL DISTRIBUTION WIDTH 16.3 % (11.6-17.2); WHITE BLOOD COUNT 9.4 TH/MM3 (4.0-11.0)
[2017-05-12 08:25] LABS: BICARBONATE 27.7 MEQ/L (21.0-32.0); CALCIUM 8.6 MG/DL (8.5-10.1); CREATININE 5.44 MG/DL (0.60-1.30)
[2017-05-12] MEDS: hydrALAZINE HCL 100 MG TAB PO SCH ×3 (09:00→18:37)
[2017-05-12] MEDS: CALCIUM ACETATE 667 MG CAP PO SCH ×3 (09:00→18:43)
[2017-05-12] MEDS: SODIUM CHLORIDE 0.9% FLUSH 10 ML FLUSH IV FLUSH SCH ×2 (09:14→21:00)
--- NOTE | 2017-05-12 10:26 | HHI.NPPN ---
Subjective General Problems: Anemia Renal Failure: End Stage Renal Disease History of Present Illness 57-year-old male with a past medical history of hypertension, history of chronic kidney disease, chronic obstructive pulmonary disease, ischemic heart disease, benign prostatic hypertrophy, congestive heart failure, came to the hospital with complaint of chest pain and generalized weakness. I was called to see the patient because of elevated BUN and creatinine. Additional Remarks Mild SOB and pruritus improving. On the way to HD (Lluvia Landeros) Review of Systems General Constitutional: Fatigue (Lluvia Landeros) Respiratory Respiratory Remarks Mild SOB (Lluvia Landeros) Cardiovascular Cardiac Remarks Denies CP (Lluvia Landeros) Gastrointestinal GI Remarks No Abdominal pain (Lluvia Landeros) Objective Data Data Vital Signs Date Time Temp Pulse Resp B/P (MAP) Pulse Ox O2 Delivery O2 Flow Rate FiO2 05/12/17 07:38 74 05/12/17 04:45 76 05/12/17 04:00 98.7 70 20 128/80 (96) 98 05/12/17 00:00 99.7 74 20 124/65 (84) 98 05/12/17 00:00 71 05/11/17 20:18 98.9 74 18 132/62 (85) 96 05/11/17 20:00 75 05/11/17 20:00 Room Air 05/11/17 16:00 98.5 73 18 123/68 (86) 98 05/11/17 15:57 80 05/11/17 12:00 98.5 69 18 117/73 (88) 98 05/11/17 11:52 66 (Lluvia Landeros) -: 05/12/17 0640 05/12/17 0640 Tubes & Lines: Perma-Cath Tubes & Lines Comment right chest wall (Lluvia Landeros) Physical Exam General Appearance: No Acute Distress, Comfortable (Lluvia Landeros) Eyes Eye Exam: Pupils Equal (Lluvia Landeros) Ears & Nose Ears & Nose Exam: Nasal Mucosa Horse Shoe (Lluvia Landeros) Throat Throat Exam: Oral Mucosa Horse Shoe & Moist (Lluvia Landeros) Neck Neck Exam: Neck Supple, Trachea Midline (Lluvia Landeros) Pulmonary Resp Exam: Breath Sounds Equal, No Distress, Rhonchi, Decreased Bases (Lluvia Landeros) Cardiology CV Exam: Regular, Normal Sinus Rhythm (Lluvia Landeros) Gastrointestinal/Abdomen GI Exam: Soft, Non-Tender, Bowel Sounds Present (Lluvia Landeros) Extremeties Extremities Exam: Trace Edema (Lluvia Landeros) Neurologic Neuro Exam: Alert, Awake, Oriented (Lluvia Landeros) Psychiatric Psych Exam: Appropriate Responses (Lluvia Landeros) Assessment/Plan Assessment Summary: Anemia of CKD, Hypertension, CKD Stage V Problem List: (1) CKD (chronic kidney disease) stage 5, GFR less than 15 ml/min ICD Codes: N18.5 - Chronic kidney disease, stage 5 Status: Chronic Plan: Biopsy report from 03/10/16 showed 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 Patient has advance stage 4-5 chronic kidney disease and is now ESRD Potassium WNL Permacath placement in right chest wall. Plan Continue Epogen 10,000 units with dialysis. Continue PhosLo and Calcitrol Vascular surgery consult and U/S arm for AVF. Emollient ordered for pruritus with some improvement Out patient HD arrangement, and need AVF. Dialysis for today. Permanent Comment: Last Edited By: Lluvia Landeros on May 04, 2017 11:14 (2) Diastolic CHF ICD Codes: I50.30 - Unspecified diastolic (congestive) heart failure Status: Acute Plan: Lasix BID (3) Monoclonal gammopathy ICD Codes: D47.2 - Monoclonal gammopathy Status: Acute (4) Prostate enlargement ICD Codes: N40.0 - Benign prostatic hyperplasia without lower urinary tract symptoms Status: Chronic (5) Hyperkalemia ICD Codes: E87.5 - Hyperkalemia Status: Acute Plan: Resolved (6) Metabolic acidosis ICD Codes: E87.2 - Acidosis Status: Chronic Plan: Resolved (7) Anemia ICD Codes: D64.9 - Anemia, unspecified Status: Chronic Plan: Epogen with dialysis Plan (Lluvia Landeros) Problem List: (1) CKD (chronic kidney disease) stage 5, GFR less than 15 ml/min ICD Codes: N18.5 - Chronic kidney disease, stage 5 Status: Chronic Plan: Biopsy report from 03/10/16 showed 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 Patient has advance stage 4-5 chronic kidney disease and is now ESRD Potassium WNL Permacath placement in right chest wall. Plan Continue Epogen 10,000 units with dialysis. Continue PhosLo and Calcitrol Vascular surgery consult and U/S arm for AVF. Emollient ordered for pruritus with some improvement Out patient HD arrangement, and need AVF. Dialysis for today. Patient seen and examined, agree with above. Seen after HD, awaiting placement and AVF. Permanent Comment: Last Edited By: Lluvia Landeros on May 04, 2017 11:14 (2) Diastolic CHF ICD Codes: I50.30 - Unspecified diastolic (congestive) heart failure Status: Acute Plan: Lasix BID (3) Monoclonal gammopathy ICD Codes: D47.2 - Monoclonal gammopathy Status: Acute (4) Prostate enlargement ICD Codes: N40.0 - Benign prostatic hyperplasia without lower urinary tract symptoms Status: Chronic (5) Hyperkalemia ICD Codes: E87.5 - Hyperkalemia Status: Acute Plan: Resolved (6) Metabolic acidosis ICD Codes: E87.2 - Acidosis Status: Chronic Plan: Resolved (7) Anemia ICD Codes: D64.9 - Anemia, unspecified Status: Chronic Plan: Epogen with dialysis (Matt Davidson MD) Lluvia Landeros May 12, 2017 10:26 Matt Davidson MD May 12, 2017 14:05
[2017-05-12] MEDS: GENTAMICIN SULFATE 20 MG/2 ML VIAL OTHER PRN (12:53)
[2017-05-12] MEDS: HEPARIN SODIUM - IV 10,000 UNITS/10 ML VIAL PRN (12:53)
[2017-05-12] MEDS: EPOETIN ALFA 10,000 UNITS/ML VIAL IV PUSH PRN (12:53)
[2017-05-12] MEDS: FERROUS SULFATE 325 MG (65 MG ELEMENTAL IRON) TAB PO SCH ×2 (13:50→21:20)
[2017-05-12] MEDS: DOCUSATE SODIUM 50 MG/SENNA 8.6 MG TAB PO SCH (13:51)
[2017-05-12] MEDS: amLODIPine BESYLATE 5 MG TAB PO SCH (13:51)
[2017-05-12] MEDS: CARVEDILOL 12.5 MG TAB PO SCH ×2 (13:51→21:20)
[2017-05-12] MEDS: PANTOPRAZOLE SOD 40 MG DELAYED RELEASE TAB PO SCH ×2 (13:51→21:20)
[2017-05-12] MEDS: GABAPENTIN 300 MG CAP PO SCH (13:51)
[2017-05-12] MEDS: CALCITRIOL 0.25 MCG CAP PO SCH (13:51)
[2017-05-12] MEDS: FUROSEMIDE 40 MG/4 ML VIAL IV PUSH SCH ×2 (13:51→18:37)
[2017-05-12] MEDS: CLOTRIMAZOLE 1% CREAM 15 GM TOPICAL SCH ×2 (13:53→21:00)
[2017-05-12] MEDS: diphenhydrAMINE HCL 2%/ZINC ACETATE 0.1% CREAM 30 APPLIC/30 GM TUBE TOPICAL PRN (13:53)
--- NOTE | 2017-05-12 14:38 | PD.VS.PN ---
Subjective Subjective/Hospital Course Pt seen in HD today. He is back on HD (was on in [id number] according to patient ). No prior HD attempts. RIGHT handed. Objective Vitals/I&O Date Time Temp Pulse Resp B/P (MAP) Pulse Ox O2 Delivery O2 Flow Rate FiO2 05/12/17 12:00 98.6 74 16 139/67 (91) 97 05/12/17 10:30 98 05/12/17 08:00 99.7 69 18 134/63 (86) 100 05/12/17 07:38 74 05/12/17 04:45 76 05/12/17 04:00 98.7 70 20 128/80 (96) 98 05/12/17 00:00 99.7 74 20 124/65 (84) 98 05/12/17 00:00 71 05/11/17 20:18 98.9 74 18 132/62 (85) 96 05/11/17 20:00 75 05/11/17 20:00 Room Air 05/11/17 16:00 98.5 73 18 123/68 (86) 98 05/11/17 15:57 80 05/12/17 05/12/17 05/12/17 07:00 15:00 23:00 Output Total 3000 ml Balance -3000 ml Physical Exam No rashes/wounds L UE Laboratory Laboratory Tests Test 05/11/17 16:26 05/12/17 06:40 Troponin I LESS THAN 0.02 White Blood Count 9.4 Red Blood Count 2.62 Hemoglobin 8.4 Hematocrit 25.0 Mean Corpuscular Volume 95.4 Mean Corpuscular Hemoglobin 32.2 Mean Corpuscular Hemoglobin Concent 33.8 Red Cell Distribution Width 16.3 Platelet Count 292 Mean Platelet Volume 8.3 Blood Urea Nitrogen 25 Creatinine 5.44 Random Glucose 100 Calcium Level 8.6 Sodium Level 142 Potassium Level 4.0 Chloride Level 105 Carbon Dioxide Level 27.7 Anion Gap 9 Estimat Glomerular Filtration Rate 13 Date/Time Source Procedure Growth Status 05/09/17 10:53 Blood Peripheral Aerobic Blood Culture - Preliminary NO GROWTH IN 3 DAYS Resulted 05/09/17 10:53 Blood Peripheral Anaerobic Blood Culture - Preliminary NO GROWTH IN 3 DAYS Resulted Imaging UE venous duplex: adequate L basilic vein. Assessment and Plan Assessment: (1) ESRD (end stage renal disease) on dialysis Plan ESRD, needs HD Access. Plan for L BB AVF, 2 stages. Discussed AVF with the patient today. He agrees to proceed. OR Tuesday. Rick Morgan MD May 12, 2017 14:38
--- NOTE | 2017-05-12 14:46 | HHI.PR ---
Subjective Remarks Follow-up for dialysis Patient seen after dialysis. He stated that he is fatigued after dialysis. He has no concerns. Objective Vitals Vital Signs Date Time Temp Pulse Resp B/P (MAP) Pulse Ox O2 Delivery O2 Flow Rate FiO2 05/12/17 12:00 98.6 74 16 139/67 (91) 97 05/12/17 10:30 98 05/12/17 08:00 99.7 69 18 134/63 (86) 100 05/12/17 07:38 74 05/12/17 04:45 76 05/12/17 04:00 98.7 70 20 128/80 (96) 98 05/12/17 00:00 99.7 74 20 124/65 (84) 98 05/12/17 00:00 71 05/11/17 20:18 98.9 74 18 132/62 (85) 96 05/11/17 20:00 75 05/11/17 20:00 Room Air 05/11/17 16:00 98.5 73 18 123/68 (86) 98 05/11/17 15:57 80 I/O 05/11/17 05/11/17 05/11/17 05/12/17 05/12/17 05/12/17 07:00 15:00 23:00 07:00 15:00 23:00 Intake Total 240 ml 480 ml Output Total 350 ml 3000 ml Balance -110 ml 480 ml -3000 ml Intake Oral 240 ml 480 ml Output Urine Total 350 ml Hemodialysis 3000 ml # Voids 4 # Bowel Movements 1 Result Diagram: 05/12/17 0640 05/12/17 0640 Objective Remarks GENERAL: in NAD CARDIOVASCULAR: Regular rate and rhythm. Positive for heart murmur. Chest pain reproducible with palpation of his anterior chest. RESPIRATORY: Breath sounds equal bilaterally. No accessory muscle use. GASTROINTESTINAL: Abdomen soft, non-tender, nondistended. MUSCULOSKELETAL: No cyanosis, or edema. BACK: Nontender without obvious deformity. No CVA tenderness. Procedures 05/06/17 Right IJ permacath placement Medications and IVs Current Medications Morphine Sulfate (Morphine Inj) 4 mg ONCE ONCE IV PUSH Last administered on 05/01/17at 13:25; Start 05/01/17 at 13:00; Stop 05/01/17 at 13:01; Status DC Calcium Gluconate 1 gm/Dextrose 110 ml @ 110 mls/hr ONCE ONCE IV Last administered on 05/01/17 16:34; Start 05/01/17 at 15:00; Stop 05/01/17 at 15:59; Status DC Pantoprazole Sodium (Protonix Inj) 40 mg ONCE ONCE IV PUSH Last administered on 05/01/17at 16:34; Start 05/01/17 at 16:15; Stop 05/01/17 at 16:16; Status DC Sodium Chloride (NS Flush) 2 ml UNSCH PRN IV FLUSH FLUSH AFTER USING IV ACCESS ; Start 05/01/17 at 16:45 Sodium Chloride (NS Flush) 2 ml BID IV FLUSH Last administered on 05/12/17at 09: 14; Start 05/01/17 at 21:00 Acetaminophen (Tylenol) 650 mg Q4H PRN PO TEMP > 100.4 or Pain 1-2 Last administered on 05/10/17at 17:30; Start 05/01/17 at 16:45 Ondansetron HCl (Zofran Inj) 4 mg Q6H PRN IVP NAUSEA OR VOMITING; Start at 16:45 Naloxone HCl (Narcan Inj) 0.4 mg UNSCH PRN IV PUSH SEE LABEL COMMENTS; Start at 16:45 Magnesium Hydroxide (Milk Of Magnesia Liq) 30 ml Q12H PRN PO Mild constipation ; Start 05/01/17 at 16:45 Sennosides (Senokot) 17.2 mg Q12H PRN PO Moderate constipation; Start 05/01/17 at 16:45 Bisacodyl (Dulcolax Supp) 10 mg DAILY PRN RECTAL SEVERE CONSITIPATION; Start at 16:45 Morphine Sulfate (Morphine Inj) 4 mg ONCE ONCE IV PUSH Last administered on 05/01/17at 16:57; Start 05/01/17 at 17:00; Stop 05/01/17 at 17:01; Status DC Diphenhydramine HCl (Benadryl) 25 mg ONCE ONCE PO Last administered on at 20:30; Start 05/01/17 at 20:30; Stop 05/01/17 at 20:34; Status DC Influenza Virus Vaccine (Flu (Quadrivalent) Vaccine Inj) 0.5 ml ONCE ONCE IM Last administered on 3/5/18at 09:26; Start 05/02/17 at 10:00; Stop 05/02/17 at 10: 01; Status DC Amlodipine Besylate (Norvasc) 10 mg DAILY PO ; Start 05/02/17 at 09:00; Stop 05/02 at 14:12; Status DC Amlodipine Besylate (Norvasc) 10 mg DAILY PO Last administered on 05/12/17at 13: 51; Start 05/02/17 at 09:00 Aspirin (Ecotrin Ec) 81 mg DAILY PO ; Start 05/02/17 at 09:00; Stop 05/02/17 at 09 :00; Status DC Atorvastatin Calcium (Lipitor) 80 mg HS PO Last administered on 05/11/17at 21:49 ; Start 05/01/17 at 23:00 Bumetanide (Bumetanide) 1 mg DAILY PO Last administered on 05/02/17at 08:01; Start 05/02/17 at 09:00; Stop 05/02/17 at 14:18; Status DC Carvedilol (Coreg) 25 mg BID PO Last administered on 05/12/17at 13:51; Start 05/01/17 at 23:00 Clopidogrel Bisulfate (Plavix) 75 mg DAILY PO Last administered on 05/02/17at 08: 01; Start 05/02/17 at 09:00; Stop 05/02/17 at 09:18; Status DC Gabapentin (Neurontin) 600 mg TID PO Last administered on 05/03/17at 11:55; Start 05/02/17 at 09:00; Stop 05/03/17 at 16:04; Status DC Hydralazine HCl (Apresoline) 100 mg TID PO Last administered on 05/12/17at 13:50 ; Start 05/02/17 at 09:00 Hydrochlorothiazide (Microzide) 12.5 mg DAILY PO Last administered on 05/02/17at 08:00; Start 05/02/17 at 09:00; Stop 05/02/17 at 15:42; Status DC Acetaminophen/ Hydrocodone Bitart ([place] 10-325 Mg) 1 tab Q4H PRN PO PAIN Last administered on 05/04/17at 09:43; Start 05/01/17 at 23:00; Stop 05/04/17 at 13:38; Status DC Mirtazapine (Remeron) 30 mg HS PO Last administered on 05/11/17at 21:50; Start 05/01/17 at 23:00 Pantoprazole Sodium (Protonix) 40 mg DAILY PO ; Start 05/02/17 at 09:00; Status Cancel Tamsulosin HCl (Flomax) 0.4 mg HS PO Last administered on 05/11/17at 21:49; Start 05/01/17 at 23:00 Pantoprazole Sodium 80 mg/ Sodium Chloride 100 ml @ 10 mls/hr CONTINUOUS IV Last administered on 05/02/17at 01:07; Start 05/02/17 at 01:00; Stop 05/02/17 at 09: 20; Status DC Sodium Polystyrene Sulfonate (Kayexalate Liq) 15 gm QID PO Last administered on 05/02/17at 21:36; Start 05/02/17 at 09:00; Stop 05/02/17 at 21:01; Status DC Albuterol Sulfate (Albuterol Concentrated Neb) 10 mg ONCE ONCE INH Last administered on 05/02/17at 09:32; Start 05/02/17 at 09:00; Stop 05/02/17 at 09:01; Status DC Insulin Human Regular 10 units/ Dextrose 500.1 ml @ 500 mls/hr Q1H1M IV Last administered on 05/02/17 09:40; Start 05/02/17 at 09:00; Stop 05/03/17 at 10:01; Status DC Pantoprazole Sodium (Protonix) 40 mg Q12HR PO Last administered on 05/12/17at 13 :51; Start 05/02/17 at 10:00 Sodium Chloride 250 ml @ 15 mls/hr ONCE ONCE IV Last administered on 16:03; Start 05/02/17 at 09:30; Stop 05/03/17 at 02:09; Status DC Acetaminophen (Tylenol) 650 mg Q4H PRN PO SEE LABEL COMMENTS Last administered on 05/02/17 15:05; Start 05/02/17 at 09:30; Stop 05/02/17 at 23:59; Status DC Diphenhydramine HCl (Benadryl) 25 mg Q4H PRN PO SEE LABEL COMMENTS Last administered on 05/02/17at 15:05; Start 05/02/17 at 09:30; Stop 05/02/17 at 23:59; Status DC Sodium Bicarbonate (Sodium Bicarbonate) 650 mg Q8HR PO Last administered on 01/15at 04:38; Start 05/02/17 at 15:15; Stop 05/08/17 at 10:29; Status DC Furosemide (Lasix Inj) 40 mg BID@09,18 IV PUSH Last administered on 05/12/17at 13:51; Start 05/02/17 at 18:00 Metoprolol Tartrate (Lopressor) 25 mg STK-MED ONCE .ROUTE Last administered on 05/03/17at 08:35; Start 05/03/17 at 08:35; Stop 05/03/17 at 08:36; Status DC Lactated Ringer's 1,000 ml @ 30 mls/hr Q24H PRN IV SEE LABEL COMMENTS; Start at 10:00; Stop 05/06/17 at 09:59; Status DC Sodium Chloride 500 ml @ 30 mls/hr [id number] PRN IV SEE LABEL COMMENTS; Start 05/03/17 at 10:00; Stop 05/06/17 at 09:59; Status DC Metoprolol Tartrate (Lopressor) 25 mg [employer] PRN PO SEE LABEL COMMENTS; Start 05/03/17 at 10:00; Stop 05/06/17 at 09:59; Status DC Povidone Iodine (Betadine 5% Antisepsis Kit) 1 applic [employer] PRN EACH NARE SEE LABEL COMMENTS; Start 05/03/17 at 10:00; Stop 05/06/17 at 09:59; Status DC Chlorhexidine Gluconate (Chlorhexidine 2% Cloth) 3 pack [employer] PRN TOPICAL SEE LABEL COMMENTS; Start 05/03/17 at 10:00; Stop 05/06/17 at 09:59; Status DC Insulin Human Regular (NovoLIN R INJ) See Protocol Table ... [employer]IST PRN SQ SEE PROTOCOL TABLE; Start 05/03/17 at 10:00; Stop 05/06/17 at 09:59; Status DC Gabapentin (Neurontin) 300 mg DAILY PO Last administered on 05/12/17at 13:51; Start 05/04/17 at 09:00 Propofol (Diprivan 200 Mg/20 ml Inj) 200 mg STK-MED ONCE IV ; Start 05/03/17 at 12:00; Stop 05/04/17 at 10:40; Status DC Lidocaine HCl (Xylocaine-Mpf 1% Inj) 5 ml STK-MED ONCE OTHER ; Start 05/03/17 at 12:00; Stop 05/04/17 at 10:40; Status DC Phenylephrine HCl (Neosynephrine/ NS 1000 Mcg/10ml Syr) 1,000 mcg STK-MED ONCE IV ; Start 05/03/17 at 12:00; Stop 05/04/17 at 10:40; Status DC Calcium Acetate (Phoslo) 667 mg TID PO Last administered on 05/12/17at 13:50; Start 05/04/17 at 13:00 Oxycodone/ Acetaminophen (Percocet 7.5-325 Mg) 1 tab Q4H PRN PO PAIN SCALE 3 TO 10 Last administered on 05/09/17at 05:37; Start 05/04/17 at 13:45; Stop at 08:40; Status DC Vancomycin HCl 1000 mg/Sodium Chloride 250 ml @ 250 mls/hr [employer] IV Last administered on 05/06/17at 11:15; Start 05/05/17 at 17:15; Stop 05/09/17 at 17:14; Status DC Cefazolin Sodium/ Dextrose 50 ml @ 100 mls/hr [employer] IV ; Start 05/05/17 at 17 :15; Stop 05/09/17 at 17:14; Status DC Sodium Chloride 1,000 ml @ 0 mls/hr Q0M PRN OTHER For Prime & Rinse Back; Start 05/06/17 at 09:23 Heparin Sodium (Porcine) (Heparin Inj) 8,000 units UNSCH PRN IV FLUSH WITH DIALYSIS; Start 05/06/17 at 09:30 Sodium Chloride 1,000 ml @ 200 mls/hr Q5H PRN IV WITH DIALYSIS; Start 05/06/17 at 09:23 Sodium Chloride 1,000 ml @ 0 mls/hr Q0M PRN OTHER WITH DIALYSIS; Start 05/06/17 at 09:23 Mannitol (Mannitol Inj) 12.5 gm UNSCH PRN IV WITH DIALYSIS; Start 05/06/17 at 09 :30 Albumin Human 100 ml @ 60 mls/hr UNSCH PRN IV WITH DIALYSIS; Start 05/06/17 at 09:30 Sodium Chloride (NS Flush) 5 ml UNSCH PRN IV FLUSH WITH DIALYSIS; Start at 09:30 Heparin Sodium (Porcine) (Heparin Inj) UNSCH PRN .XX WITH DIALYSIS Last administered on 05/12/17at 12:53; Start 05/06/17 at 09:30 Gentamicin Sulfate (Gentamicin Inj) 20 mg UNSCH PRN OTHER WITH DIALYSIS Last administered on 05/12/17at 12:53; Start 05/06/17 at 09:30 Ondansetron HCl (Zofran Inj) 4 mg UNSCH PRN IV PUSH WITH DIALYSIS; Start at 09:30 Acetaminophen (Tylenol) 650 mg UNSCH PRN PO for headach, pain, temp > 101F; Start 05/06/17 at 09:30 Diphenhydramine HCl (Benadryl) 25 mg UNSCH PRN PO for hives/itching/anaphylaxis ; Start 05/06/17 at 09:30 Nitroglycerin (Nitrostat Sl) 0.4 mg UNSCH PRN SL CHEST PAIN; Start 05/06/17 at 09:30 Clonidine (Catapres) 0.1 mg UNSCH PRN PO for BP > 180/100 X 2 readings; Start 05/06/17 at 09:30 Epoetin Salvatore (Epogen Inj) 10,000 units UNSCH PRN IV PUSH WITH DIALYSIS Last administered on 05/12/17at 12:53; Start 05/06/17 at 09:30 Gelatin (Gelfoam 12 Mm/7 Mm Top) 1 foam UNSCH PRN TOP SEE LABEL COMMENTS; Start 05/06/17 at 09:30 Hydroxyzine HCl (Atarax) 25 mg Q6H PRN PO Itching Last administered on at 08:40; Start 05/06/17 at 09:30 Calcitriol (Rocaltrol) 0.25 mcg DAILY PO Last administered on 05/12/17at 13:51; Start 05/07/17 at 09:00 Fentanyl Citrate (fentaNYL INJ) 100 mcg STK-MED ONCE .ROUTE ; Start 05/06/17 at 12:20; Stop 05/06/17 at 12:21; Status DC Fentanyl Citrate (fentaNYL INJ) 100 mcg STK-MED ONCE .ROUTE ; Start 05/06/17 at 12:20; Stop 05/06/17 at 12:21; Status DC Midazolam HCl (Versed Inj) 4 mg STK-MED ONCE .ROUTE ; Start 05/06/17 at 12:20; Stop 05/06/17 at 12:21; Status DC Heparin Sodium (Porcine) (*HEPARIN INJ Periprocedural ONLY) 10,000 units STK- MED ONCE .ROUTE Last administered on 05/06/17at 12:55; Start 05/06/17 at 12:23; Stop 05/06/17 at 12:24; Status DC Lidocaine/ Epinephrine (Xylocaine-Epi 1%-1:100,000 Inj) 30 ml STK-MED ONCE .ROUTE Last administered on 05/06/17at 12:50; Start 05/06/17 at 12:23; Stop at 12:24; Status DC Sodium Chloride (NS Flush) UNSCH PRN IV FLUSH SEE PROTOCOL; Start 05/06/17 at 13:15 Heparin Sodium (Porcine) (Heparin Inj) UNSCH PRN IV FLUSH SEE PROTOCOL; Start 05/06/17 at 13:15 Diphenhydramine HCl (Benadryl 2% Cream) 1 applic TID PRN TOPICAL ITCHING Last administered on 05/12/17at 13:53; Start 05/07/17 at 10:45 Sodium Chloride 250 ml @ 15 mls/hr ONCE ONCE IV Last administered on at 15:58; Start 05/08/17 at 09:00; Stop 05/09/17 at 01:39; Status DC Ferrous Sulfate (Ferrous Sulfate) 325 mg BID PO Last administered on 05/12/17at 13:50; Start 05/08/17 at 11:15 Senna/Docusate Sodium ([place]-Colace) 1 tab DAILY PO Last administered on at 13:51; Start 05/08/17 at 11:15 Oxycodone/ Acetaminophen (Percocet 7.5-325 Mg) 1 tab Q4H PRN PO PAIN SCALE 7 TO 10 Last administered on 05/12/17at 13:50; Start 05/09/17 at 08:45 Oxycodone/ Acetaminophen (Percocet 5-325 Mg) 1 tab Q4H PRN PO PAIN SCALE 3 TO 6; Start 05/09/17 at 08:45 Clotrimazole (Lotrimin 1% Cream) 1 applic Q12HR TOPICAL Last administered on at 13:53; Start 05/10/17 at 14:00 Multi-Ingredient Ointment (Eucerin Cream) 1 applic Q6H PRN TOPICAL dry skin; Start 05/11/17 at 10:15 A/P Problem List: (1) GI bleed ICD Code: K92.2 - Gastrointestinal hemorrhage, unspecified Status: Acute (2) CKD (chronic kidney disease) stage 5, GFR less than 15 ml/min ICD Code: N18.5 - Chronic kidney disease, stage 5 Status: Chronic Permanent Comment: Last Edited By: Lluvia Landeros on May 04, 2017 11:14 (3) Chest pain ICD Code: R07.9 - Chest pain, unspecified Status: Acute (4) Hypertension ICD Code: I10 - Essential (primary) hypertension Status: Chronic Assessment and Plan This is a 57 y/o Acute anemia secondary to acute blood loss, renal failure: Monitor labs. - No sign of active bleeding. Appreciate GI recommendations. Status post EGD. Continue Protonix. Status post transfusion of 1 unit PRBCs. Hemoglobin is stable. Mildly elevated troponin: Likely secondary to renal failure. Appreciate cardiology recommendations. Atypical chest pain -This is reproducible. Most likely musculoskeletal. Can give Tylenol as needed for pain. Need to avoid NSAIDs due to acute renal failure. Heart murmur: -Echocardiogram shows moderate aortic valve stenosis. Appreciate cardiothoracic surgery recommendations. Repeat echo in 6 months. Hyperkalemia: Improved. Chronic kidney disease stage V - Appreciate nephrology recommendations. Permacath placed. Continue hemodialysis per nephrology (Tue/Thur/Sat). 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 -Continue Epogen 10,000 units with dialysis and PhosLo and Calcitrol -Vascular surgery consult and U/S arm for AVF. Dialysis yesterday 4 liters removed Hypertension - Continue amlodipine, Bumex, carvedilol, HCTZ, hydralazine. Hyperlipidemia -Continue statin. Rash/pruritis: Improving. Atarax, Benadryl cream as needed. Add clotrimazole cream. Emollient ordered for pruritus Fever on 05/10/2017 - No obvious source of infection. Chest x-ray shows no acute findings. UA does not suggest UTI he is asymptomatic. Pending blood cultures. Patient has not had any fever since then. Continue to monitor clinically off of antibiotics. DVT prophylaxis: SCDs. Discharge Planning Patient will need outpatient dialysis arrangement. Problem Qualifiers (1) GI bleed: Qualified Codes: K92.2 - Gastrointestinal hemorrhage, unspecified (2) Chest pain: Qualified Codes: R07.9 - Chest pain, unspecified Wandy Hernandez MD May 12, 2017 14:46
[2017-05-12] MEDS: MIRTAZAPINE 15 MG TAB PO SCH (21:20)
[2017-05-12] MEDS: ATORVASTATIN 80 MG TAB PO SCH (21:20)
[2017-05-12] MEDS: TAMSULOSIN HCL 0.4 MG CAP PO SCH (21:20)
[2017-05-12] MEDS: SENNOSIDES 8.6 MG TAB PO PRN (21:28)
[2017-05-13] VITALS (13 sets, daily range): BP systolic 105–131; BP diastolic 55–68; PULSE 63–82; RESP 16–20; TEMP 98.2–99.1; O2SAT 94–99
[2017-05-13] MEDS: oxyCODONE/ACETAMINOPHEN 7.5 MG/325 MG TAB PO PRN ×6 (00:07→21:57)
[2017-05-13] MEDS: CALCIUM ACETATE 667 MG CAP PO SCH ×3 (08:57→18:25)
[2017-05-13] MEDS: hydrALAZINE HCL 100 MG TAB PO SCH ×3 (08:57→18:02)
[2017-05-13] MEDS: GABAPENTIN 300 MG CAP PO SCH (08:57)
[2017-05-13] MEDS: FERROUS SULFATE 325 MG (65 MG ELEMENTAL IRON) TAB PO SCH ×2 (08:57→20:39)
[2017-05-13] MEDS: DOCUSATE SODIUM 50 MG/SENNA 8.6 MG TAB PO SCH (08:57)
[2017-05-13] MEDS: PANTOPRAZOLE SOD 40 MG DELAYED RELEASE TAB PO SCH ×2 (08:57→20:39)
[2017-05-13] MEDS: CARVEDILOL 12.5 MG TAB PO SCH ×2 (08:57→20:39)
[2017-05-13] MEDS: CALCITRIOL 0.25 MCG CAP PO SCH (08:57)
[2017-05-13] MEDS: amLODIPine BESYLATE 5 MG TAB PO SCH (08:57)
[2017-05-13] MEDS: SODIUM CHLORIDE 0.9% FLUSH 10 ML FLUSH IV FLUSH SCH ×2 (08:58→20:40)
[2017-05-13] MEDS: FUROSEMIDE 40 MG/4 ML VIAL IV PUSH SCH ×2 (08:58→18:03)
[2017-05-13] MEDS: CLOTRIMAZOLE 1% CREAM 15 GM TOPICAL SCH ×2 (08:59→21:00)
[2017-05-13] MEDS: diphenhydrAMINE HCL 2%/ZINC ACETATE 0.1% CREAM 30 APPLIC/30 GM TUBE TOPICAL PRN (09:00)
--- NOTE | 2017-05-13 16:04 | HHI.PR ---
Subjective Remarks Follow-up for dialysis Patient asking if he can make long distance call to try to figure out what is going on with his insurance coverage. He stated that before being hospitalized his medication was covered at [facility] but now is no longer cover so he is trying to find out why but mostly numbers a long distance. Otherwise he has no other complaints. Objective Vitals Vital Signs Date Time Temp Pulse Resp B/P (MAP) Pulse Ox O2 Delivery O2 Flow Rate FiO2 05/13/17 12:00 98.2 69 18 105/55 (72) 94 05/13/17 08:06 67 05/13/17 08:00 98.7 68 18 124/68 (86) 96 05/13/17 08:00 Room Air 05/13/17 04:00 98.6 63 20 122/57 (78) 96 05/13/17 03:46 69 05/13/17 00:00 Room Air 05/13/17 00:00 98.7 75 20 131/64 (86) 95 05/12/17 23:45 74 05/12/17 20:00 99.0 73 20 118/58 (78) 95 05/12/17 20:00 Room Air 05/12/17 19:48 79 05/12/17 19:36 16 05/12/17 18:35 72 118/59 (78) 05/12/17 16:00 97.4 75 16 107/56 (73) 98 05/12/17 15:55 70 I/O 05/12/17 05/12/17 05/12/17 05/13/17 05/13/17 05/13/17 07:00 15:00 23:00 07:00 15:00 23:00 Intake Total 720 ml Output Total 3000 ml 840 ml 400 ml Balance -3000 ml -120 ml -400 ml Intake Oral 720 ml Output Urine Total 840 ml 400 ml Hemodialysis 3000 ml # Bowel Movements 0 Result Diagram: 05/12/17 0640 05/12/17 0640 Objective Remarks GENERAL: in NAD CARDIOVASCULAR: Regular rate and rhythm. Positive for heart murmur. Chest pain reproducible with palpation of his anterior chest. RESPIRATORY: Breath sounds equal bilaterally. No accessory muscle use. GASTROINTESTINAL: Abdomen soft, non-tender, nondistended. MUSCULOSKELETAL: No cyanosis, or edema. BACK: Nontender without obvious deformity. No CVA tenderness. Procedures 05/06/17 Right IJ permacath placement Medications and IVs Current Medications Morphine Sulfate (Morphine Inj) 4 mg ONCE ONCE IV PUSH Last administered on 05/01/17at 13:25; Start 05/01/17 at 13:00; Stop 05/01/17 at 13:01; Status DC Calcium Gluconate 1 gm/Dextrose 110 ml @ 110 mls/hr ONCE ONCE IV Last administered on 05/01/17at 16:34; Start 05/01/17 at 15:00; Stop 05/01/17 at 15:59; Status DC Pantoprazole Sodium (Protonix Inj) 40 mg ONCE ONCE IV PUSH Last administered on 05/01/17at 16:34; Start 05/01/17 at 16:15; Stop 05/01/17 at 16:16; Status DC Sodium Chloride (NS Flush) 2 ml UNSCH PRN IV FLUSH FLUSH AFTER USING IV ACCESS ; Start 05/01/17 at 16:45 Sodium Chloride (NS Flush) 2 ml BID IV FLUSH Last administered on 05/13/17at 08: 58; Start 05/01/17 at 21:00 Acetaminophen (Tylenol) 650 mg Q4H PRN PO TEMP > 100.4 or Pain 1-2 Last administered on 05/10/17at 17:30; Start 05/01/17 at 16:45 Ondansetron HCl (Zofran Inj) 4 mg Q6H PRN IVP NAUSEA OR VOMITING; Start at 16:45 Naloxone HCl (Narcan Inj) 0.4 mg UNSCH PRN IV PUSH SEE LABEL COMMENTS; Start at 16:45 Magnesium Hydroxide (Milk Of Magnesia Liq) 30 ml Q12H PRN PO Mild constipation ; Start 05/01/17 at 16:45 Sennosides (Senokot) 17.2 mg Q12H PRN PO Moderate constipation Last administered on 05/12/17at 21:28; Start 05/01/17 at 16:45 Bisacodyl (Dulcolax Supp) 10 mg DAILY PRN RECTAL SEVERE CONSITIPATION; Start at 16:45 Morphine Sulfate (Morphine Inj) 4 mg ONCE ONCE IV PUSH Last administered on 05/01/17at 16:57; Start 05/01/17 at 17:00; Stop 05/01/17 at 17:01; Status DC Diphenhydramine HCl (Benadryl) 25 mg ONCE ONCE PO Last administered on at 20:30; Start 05/01/17 at 20:30; Stop 05/01/17 at 20:34; Status DC Influenza Virus Vaccine (Flu (Quadrivalent) Vaccine Inj) 0.5 ml ONCE ONCE IM Last administered on 05/02/17 09:26; Start 05/02/17 at 10:00; Stop 05/02/17 at 10: 01; Status DC Amlodipine Besylate (Norvasc) 10 mg DAILY PO ; Start 05/02/17 at 09:00; Stop 05/02 at 14:12; Status DC Amlodipine Besylate (Norvasc) 10 mg DAILY PO Last administered on 05/13/17at 08: 57; Start 05/02/17 at 09:00 Aspirin (Ecotrin Ec) 81 mg DAILY PO ; Start 05/02/17 at 09:00; Stop 05/02/17 at 09 :00; Status DC Atorvastatin Calcium (Lipitor) 80 mg HS PO Last administered on 05/12/17at 21:20 ; Start 05/01/17 at 23:00 Bumetanide (Bumetanide) 1 mg DAILY PO Last administered on 05/02/17at 08:01; Start 05/02/17 at 09:00; Stop 05/02/17 at 14:18; Status DC Carvedilol (Coreg) 25 mg BID PO Last administered on 05/13/17at 08:57; Start 05/01/17 at 23:00 Clopidogrel Bisulfate (Plavix) 75 mg DAILY PO Last administered on 05/02/17at 08: 01; Start 05/02/17 at 09:00; Stop 05/02/17 at 09:18; Status DC Gabapentin (Neurontin) 600 mg TID PO Last administered on 05/03/17at 11:55; Start 05/02/17 at 09:00; Stop 05/03/17 at 16:04; Status DC Hydralazine HCl (Apresoline) 100 mg TID PO Last administered on 05/13/17at 13:17 ; Start 05/02/17 at 09:00 Hydrochlorothiazide (Microzide) 12.5 mg DAILY PO Last administered on 05/02/17 08:00; Start 05/02/17 at 09:00; Stop 05/02/17 at 15:42; Status DC Acetaminophen/ Hydrocodone Bitart ([place] 10-325 Mg) 1 tab Q4H PRN PO PAIN Last administered on 05/04/17 09:43; Start 05/01/17 at 23:00; Stop 05/04/17 at 13:38; Status DC Mirtazapine (Remeron) 30 mg HS PO Last administered on 05/12/17 21:20; Start 05/01/17 at 23:00 Pantoprazole Sodium (Protonix) 40 mg DAILY PO ; Start 05/02/17 at 09:00; Status Cancel Tamsulosin HCl (Flomax) 0.4 mg HS PO Last administered on 05/12/17at 21:20; Start 05/01/17 at 23:00 Pantoprazole Sodium 80 mg/ Sodium Chloride 100 ml @ 10 mls/hr CONTINUOUS IV Last administered on 05/02/17 01:07; Start 05/02/17 at 01:00; Stop 05/02/17 at 09: 20; Status DC Sodium Polystyrene Sulfonate (Kayexalate Liq) 15 gm QID PO Last administered on 05/02/17 21:36; Start 05/02/17 at 09:00; Stop 05/02/17 at 21:01; Status DC Albuterol Sulfate (Albuterol Concentrated Neb) 10 mg ONCE ONCE INH Last administered on 05/02/17 09:32; Start 05/02/17 at 09:00; Stop 05/02/17 at 09:01; Status DC Insulin Human Regular 10 units/ Dextrose 500.1 ml @ 500 mls/hr Q1H1M IV Last administered on 05/02/17 09:40; Start 05/02/17 at 09:00; Stop 05/03/17 at 10:01; Status DC Pantoprazole Sodium (Protonix) 40 mg Q12HR PO Last administered on 05/13/17at 08 :57; Start 05/02/17 at 10:00 Sodium Chloride 250 ml @ 15 mls/hr ONCE ONCE IV Last administered on 16:03; Start 05/02/17 at 09:30; Stop 05/03/17 at 02:09; Status DC Acetaminophen (Tylenol) 650 mg Q4H PRN PO SEE LABEL COMMENTS Last administered on 05/02/17at 15:05; Start 05/02/17 at 09:30; Stop 05/02/17 at 23:59; Status DC Diphenhydramine HCl (Benadryl) 25 mg Q4H PRN PO SEE LABEL COMMENTS Last administered on 05/02/17at 15:05; Start 05/02/17 at 09:30; Stop 05/02/17 at 23:59; Status DC Sodium Bicarbonate (Sodium Bicarbonate) 650 mg Q8HR PO Last administered on 01/15at 04:38; Start 05/02/17 at 15:15; Stop 05/08/17 at 10:29; Status DC Furosemide (Lasix Inj) 40 mg BID@09,18 IV PUSH Last administered on 05/13/17at 08:58; Start 05/02/17 at 18:00 Metoprolol Tartrate (Lopressor) 25 mg STK-MED ONCE .ROUTE Last administered on 05/03/17at 08:35; Start 05/03/17 at 08:35; Stop 05/03/17 at 08:36; Status DC Lactated Ringer's 1,000 ml @ 30 mls/hr Q24H PRN IV SEE LABEL COMMENTS; Start at 10:00; Stop 05/06/17 at 09:59; Status DC Sodium Chloride 500 ml @ 30 mls/hr [id number] PRN IV SEE LABEL COMMENTS; Start 05/03/17 at 10:00; Stop 05/06/17 at 09:59; Status DC Metoprolol Tartrate (Lopressor) 25 mg [employer] PRN PO SEE LABEL COMMENTS; Start 05/03/17 at 10:00; Stop 05/06/17 at 09:59; Status DC Povidone Iodine (Betadine 5% Antisepsis Kit) 1 applic [employer] PRN EACH NARE SEE LABEL COMMENTS; Start 05/03/17 at 10:00; Stop 05/06/17 at 09:59; Status DC Chlorhexidine Gluconate (Chlorhexidine 2% Cloth) 3 pack [employer] PRN TOPICAL SEE LABEL COMMENTS; Start 05/03/17 at 10:00; Stop 05/06/17 at 09:59; Status DC Insulin Human Regular (NovoLIN R INJ) See Protocol Table ... [employer] PRN SQ SEE PROTOCOL TABLE; Start 05/03/17 at 10:00; Stop 05/06/17 at 09:59; Status DC Gabapentin (Neurontin) 300 mg DAILY PO Last administered on 05/13/17at 08:57; Start 05/04/17 at 09:00 Propofol (Diprivan 200 Mg/20 ml Inj) 200 mg STK-MED ONCE IV ; Start 05/03/17 at 12:00; Stop 05/04/17 at 10:40; Status DC Lidocaine HCl (Xylocaine-Mpf 1% Inj) 5 ml STK-MED ONCE OTHER ; Start 05/03/17 at 12:00; Stop 05/04/17 at 10:40; Status DC Phenylephrine HCl (Neosynephrine/ NS 1000 Mcg/10ml Syr) 1,000 mcg STK-MED ONCE IV ; Start 05/03/17 at 12:00; Stop 05/04/17 at 10:40; Status DC Calcium Acetate (Phoslo) 667 mg TID PO Last administered on 05/13/17at 13:18; Start 05/04/17 at 13:00 Oxycodone/ Acetaminophen (Percocet 7.5-325 Mg) 1 tab Q4H PRN PO PAIN SCALE 3 TO 10 Last administered on 05/09/17at 05:37; Start 05/04/17 at 13:45; Stop at 08:40; Status DC Vancomycin HCl 1000 mg/Sodium Chloride 250 ml @ 250 mls/hr [employer] IV Last administered on 05/06/17at 11:15; Start 05/05/17 at 17:15; Stop 05/09/17 at 17:14; Status DC Cefazolin Sodium/ Dextrose 50 ml @ 100 mls/hr [employer] IV ; Start 05/05/17 at 17 :15; Stop 05/09/17 at 17:14; Status DC Sodium Chloride 1,000 ml @ 0 mls/hr Q0M PRN OTHER For Prime & Rinse Back; Start 05/06/17 at 09:23 Heparin Sodium (Porcine) (Heparin Inj) 8,000 units UNSCH PRN IV FLUSH WITH DIALYSIS; Start 05/06/17 at 09:30 Sodium Chloride 1,000 ml @ 200 mls/hr Q5H PRN IV WITH DIALYSIS; Start 05/06/17 at 09:23 Sodium Chloride 1,000 ml @ 0 mls/hr Q0M PRN OTHER WITH DIALYSIS; Start 05/06/17 at 09:23 Mannitol (Mannitol Inj) 12.5 gm UNSCH PRN IV WITH DIALYSIS; Start 05/06/17 at 09 :30 Albumin Human 100 ml @ 60 mls/hr UNSCH PRN IV WITH DIALYSIS; Start 05/06/17 at 09:30 Sodium Chloride (NS Flush) 5 ml UNSCH PRN IV FLUSH WITH DIALYSIS; Start at 09:30 Heparin Sodium (Porcine) (Heparin Inj) UNSCH PRN .XX WITH DIALYSIS Last administered on 05/12/17at 12:53; Start 05/06/17 at 09:30 Gentamicin Sulfate (Gentamicin Inj) 20 mg UNSCH PRN OTHER WITH DIALYSIS Last administered on 05/12/17at 12:53; Start 05/06/17 at 09:30 Ondansetron HCl (Zofran Inj) 4 mg UNSCH PRN IV PUSH WITH DIALYSIS; Start at 09:30 Acetaminophen (Tylenol) 650 mg UNSCH PRN PO for headach, pain, temp > 101F; Start 05/06/17 at 09:30 Diphenhydramine HCl (Benadryl) 25 mg UNSCH PRN PO for hives/itching/anaphylaxis ; Start 05/06/17 at 09:30 Nitroglycerin (Nitrostat Sl) 0.4 mg UNSCH PRN SL CHEST PAIN; Start 05/06/17 at 09:30 Clonidine (Catapres) 0.1 mg UNSCH PRN PO for BP > 180/100 X 2 readings; Start 05/06/17 at 09:30 Epoetin Salvatore (Epogen Inj) 10,000 units UNSCH PRN IV PUSH WITH DIALYSIS Last administered on 05/12/17at 12:53; Start 05/06/17 at 09:30 Gelatin (Gelfoam 12 Mm/7 Mm Top) 1 foam UNSCH PRN TOP SEE LABEL COMMENTS; Start 05/06/17 at 09:30 Hydroxyzine HCl (Atarax) 25 mg Q6H PRN PO Itching Last administered on at 08:40; Start 05/06/17 at 09:30 Calcitriol (Rocaltrol) 0.25 mcg DAILY PO Last administered on 05/13/17at 08:57; Start 05/07/17 at 09:00 Fentanyl Citrate (fentaNYL INJ) 100 mcg STK-MED ONCE .ROUTE ; Start 05/06/17 at 12:20; Stop 05/06/17 at 12:21; Status DC Fentanyl Citrate (fentaNYL INJ) 100 mcg STK-MED ONCE .ROUTE ; Start 05/06/17 at 12:20; Stop 05/06/17 at 12:21; Status DC Midazolam HCl (Versed Inj) 4 mg STK-MED ONCE .ROUTE ; Start 05/06/17 at 12:20; Stop 05/06/17 at 12:21; Status DC Heparin Sodium (Porcine) (*HEPARIN INJ Periprocedural ONLY) 10,000 units STK- MED ONCE .ROUTE Last administered on 05/06/17at 12:55; Start 05/06/17 at 12:23; Stop 05/06/17 at 12:24; Status DC Lidocaine/ Epinephrine (Xylocaine-Epi 1%-1:100,000 Inj) 30 ml STK-MED ONCE .ROUTE Last administered on 05/06/17at 12:50; Start 05/06/17 at 12:23; Stop at 12:24; Status DC Sodium Chloride (NS Flush) UNSCH PRN IV FLUSH SEE PROTOCOL; Start 05/06/17 at 13:15 Heparin Sodium (Porcine) (Heparin Inj) UNSCH PRN IV FLUSH SEE PROTOCOL; Start 05/06/17 at 13:15 Diphenhydramine HCl (Benadryl 2% Cream) 1 applic TID PRN TOPICAL ITCHING Last administered on 05/13/17at 09:00; Start 05/07/17 at 10:45 Sodium Chloride 250 ml @ 15 mls/hr ONCE ONCE IV Last administered on at 15:58; Start 05/08/17 at 09:00; Stop 05/09/17 at 01:39; Status DC Ferrous Sulfate (Ferrous Sulfate) 325 mg BID PO Last administered on 05/13/17at 08:57; Start 05/08/17 at 11:15 Senna/Docusate Sodium (Kasey-Colace) 1 tab DAILY PO Last administered on at 08:57; Start 05/08/17 at 11:15 Oxycodone/ Acetaminophen (Percocet 7.5-325 Mg) 1 tab Q4H PRN PO PAIN SCALE 7 TO 10 Last administered on 05/13/17at 13:17; Start 05/09/17 at 08:45 Oxycodone/ Acetaminophen (Percocet 5-325 Mg) 1 tab Q4H PRN PO PAIN SCALE 3 TO 6; Start 05/09/17 at 08:45 Clotrimazole (Lotrimin 1% Cream) 1 applic Q12HR TOPICAL Last administered on at 08:59; Start 05/10/17 at 14:00 Multi-Ingredient Ointment (Eucerin Cream) 1 applic Q6H PRN TOPICAL dry skin; Start 05/11/17 at 10:15 A/P Problem List: (1) GI bleed ICD Code: K92.2 - Gastrointestinal hemorrhage, unspecified Status: Acute (2) CKD (chronic kidney disease) stage 5, GFR less than 15 ml/min ICD Code: N18.5 - Chronic kidney disease, stage 5 Status: Chronic Permanent Comment: Last Edited By: Lluvia Landeros on May 04, 2017 11:14 (3) Chest pain ICD Code: R07.9 - Chest pain, unspecified Status: Acute (4) Hypertension ICD Code: I10 - Essential (primary) hypertension Status: Chronic Assessment and Plan This is a 57 y/o Acute anemia secondary to acute blood loss, renal failure: Monitor labs. - No sign of active bleeding. Appreciate GI recommendations. Status post EGD. Continue Protonix. Status post transfusion of 1 unit PRBCs. Hemoglobin is stable. Mildly elevated troponin: Likely secondary to renal failure. Appreciate cardiology recommendations. Atypical chest pain -This is reproducible. Most likely musculoskeletal. Can give Tylenol as needed for pain. Need to avoid NSAIDs due to acute renal failure. Heart murmur: -Echocardiogram shows moderate aortic valve stenosis. Appreciate cardiothoracic surgery recommendations. Repeat echo in 6 months. Hyperkalemia: Improved. Chronic kidney disease stage V - Appreciate nephrology recommendations. Permacath placed. Continue hemodialysis per nephrology (Tue/ur/Sat). 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 -Continue Epogen 10,000 units with dialysis and PhosLo and Calcitrol -Vascular surgery consult and patient scheduled for aVF on Tuesday. Dialysis yesterday 4 liters removed Hypertension - Continue amlodipine, Bumex, carvedilol, HCTZ, hydralazine. Hyperlipidemia -Continue statin. Rash/pruritis: Improving. Atarax, Benadryl cream as needed. Add clotrimazole cream. Emollient ordered for pruritus Fever on 05/10/2017 - No obvious source of infection. Chest x-ray shows no acute findings. UA does not suggest UTI he is asymptomatic. Pending blood cultures. Patient has not had any fever since then. Continue to monitor clinically off of antibiotics. DVT prophylaxis: SCDs. Discharge Planning Patient will need outpatient dialysis arrangement. Discussed patient requests at MDR meeting. Problem Qualifiers (1) GI bleed: Qualified Codes: K92.2 - Gastrointestinal hemorrhage, unspecified (2) Chest pain: Qualified Codes: R07.9 - Chest pain, unspecified Wandy Hernandez MD May 13, 2017 16:04
--- NOTE | 2017-05-13 16:32 | HHI.NPPN ---
Subjective General Problems: Anemia Renal Failure: End Stage Renal Disease History of Present Illness 57-year-old male with a past medical history of hypertension, history of chronic kidney disease, chronic obstructive pulmonary disease, ischemic heart disease, benign prostatic hypertrophy, congestive heart failure, came to the hospital with complaint of chest pain and generalized weakness. I was called to see the patient because of elevated BUN and creatinine. Additional Remarks Patient is alert, no SOB, has pain in Rt. shoulder and upper back. Review of Systems General Constitutional: Fatigue Respiratory Respiratory Remarks Mild SOB Cardiovascular Cardiac Remarks Denies CP Gastrointestinal GI Remarks No Abdominal pain Objective Data Data Vital Signs Date Time Temp Pulse Resp B/P (MAP) Pulse Ox O2 Delivery O2 Flow Rate FiO2 05/13/17 16:00 99.1 68 18 115/55 (75) 97 05/13/17 12:00 98.2 69 18 105/55 (72) 94 05/13/17 08:06 67 05/13/17 08:00 98.7 68 18 124/68 (86) 96 05/13/17 08:00 Room Air 05/13/17 04:00 98.6 63 20 122/57 (78) 96 05/13/17 03:46 69 05/13/17 00:00 Room Air 05/13/17 00:00 98.7 75 20 131/64 (86) 95 05/12/17 23:45 74 05/12/17 20:00 99.0 73 20 118/58 (78) 95 05/12/17 20:00 Room Air 05/12/17 19:48 79 05/12/17 19:36 16 05/12/17 18:35 72 118/59 (78) -: 05/12/17 0640 05/12/17 0640 Tubes & Lines: Perma-Cath Tubes & Lines Comment right chest wall Physical Exam General Appearance: No Acute Distress, Comfortable Eyes Eye Exam: Pupils Equal Ears & Nose Ears & Nose Exam: Nasal Mucosa [place] Throat Throat Exam: Oral Mucosa [place] & Moist Neck Neck Exam: Neck Supple, Trachea Midline Pulmonary Resp Exam: Breath Sounds Equal, No Distress, Rhonchi, Decreased Bases Cardiology CV Exam: Regular, Normal Sinus Rhythm Gastrointestinal/Abdomen GI Exam: Soft, Non-Tender, Bowel Sounds Present Extremeties Extremities Exam: Trace Edema Neurologic Neuro Exam: Alert, Awake, Oriented Psychiatric Psych Exam: Appropriate Responses Assessment/Plan Assessment Summary: Anemia of CKD, Hypertension, CKD Stage V Problem List: (1) CKD (chronic kidney disease) stage 5, GFR less than 15 ml/min ICD Codes: N18.5 - Chronic kidney disease, stage 5 Status: Chronic Plan: Biopsy report from 03/10/16 showed 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 Patient has advance stage 4-5 chronic kidney disease and is now ESRD Potassium WNL Permacath placement in right chest wall. Plan Continue Epogen 10,000 units with dialysis. Continue PhosLo and Calcitrol Vascular surgery consult and U/S arm for AVF. Emollient ordered for pruritus with some improvement Out patient HD arrangement, and need AVF. Dialysis done yesterday,. AVF possibly on Tuesday, vascular follow up noted. HD again in AM. Permanent Comment: Last Edited By: Lluvia Landeros on May 04, 2017 11:14 (2) Diastolic CHF ICD Codes: I50.30 - Unspecified diastolic (congestive) heart failure Status: Acute Plan: Lasix BID (3) Monoclonal gammopathy ICD Codes: D47.2 - Monoclonal gammopathy Status: Acute (4) Prostate enlargement ICD Codes: N40.0 - Benign prostatic hyperplasia without lower urinary tract symptoms Status: Chronic (5) Hyperkalemia ICD Codes: E87.5 - Hyperkalemia Status: Acute Plan: Resolved (6) Metabolic acidosis ICD Codes: E87.2 - Acidosis Status: Chronic Plan: Resolved (7) Anemia ICD Codes: D64.9 - Anemia, unspecified Status: Chronic Plan: Epogen with dialysis Plan Matt Davidson MD May 13, 2017 16:32
[2017-05-13] MEDS: ATORVASTATIN 80 MG TAB PO SCH (20:39)
[2017-05-13] MEDS: MIRTAZAPINE 15 MG TAB PO SCH (20:39)
[2017-05-13] MEDS: TAMSULOSIN HCL 0.4 MG CAP PO SCH (20:39)
[2017-05-13] MEDS: CYCLOBENZAPRINE HCL 10 MG TAB PO PRN (20:50)
[2017-05-14] VITALS (10 sets, daily range): BP systolic 110–145; BP diastolic 58–75; PULSE 69–97; RESP 16–20; TEMP 98.1–99.4; O2SAT 95–99
[2017-05-14] MEDS: oxyCODONE/ACETAMINOPHEN 7.5 MG/325 MG TAB PO PRN ×4 (02:04→20:14)
[2017-05-14] MEDS: HEPARIN SODIUM - IV 10,000 UNITS/10 ML VIAL PRN (09:32)
[2017-05-14] MEDS: EPOETIN ALFA 10,000 UNITS/ML VIAL IV PUSH PRN (09:33)
[2017-05-14] MEDS: GENTAMICIN SULFATE 20 MG/2 ML VIAL OTHER PRN (09:33)
--- NOTE | 2017-05-14 10:44 | HHI.NPPN ---
Subjective General Problems: Anemia Renal Failure: End Stage Renal Disease History of Present Illness 57-year-old male with a past medical history of hypertension, history of chronic kidney disease, chronic obstructive pulmonary disease, ischemic heart disease, benign prostatic hypertrophy, congestive heart failure, came to the hospital with complaint of chest pain and generalized weakness. I was called to see the patient because of elevated BUN and creatinine. Additional Remarks Seen on HD and tolerating HD well. Some ongoing shoulder pains Review of Systems General Constitutional: Fatigue Respiratory Respiratory Remarks Mild SOB Cardiovascular Cardiac Remarks Denies CP Gastrointestinal GI Remarks No Abdominal pain Objective Data Data Vital Signs Date Time Temp Pulse Resp B/P (MAP) Pulse Ox O2 Delivery O2 Flow Rate FiO2 05/14/17 09:00 74 05/14/17 08:00 98.5 70 20 124/63 (83) 98 05/14/17 04:00 98.3 69 16 126/59 (81) 99 05/14/17 03:46 70 05/14/17 00:00 99.4 81 16 110/65 (80) 95 05/14/17 00:00 Room Air 05/13/17 23:45 82 05/13/17 20:00 99.0 77 16 118/57 (77) 99 05/13/17 20:00 Room Air 05/13/17 19:44 81 05/13/17 18:01 70 123/59 (80) 05/13/17 17:30 97 21 05/13/17 16:00 74 05/13/17 16:00 99.1 68 18 115/55 (75) 97 05/13/17 12:18 71 05/13/17 12:00 98.2 69 18 105/55 (72) 94 -: 05/12/17 0640 05/12/17 0640 Tubes & Lines: Perma-Cath Tubes & Lines Comment right chest wall Physical Exam General Appearance: No Acute Distress, Comfortable Eyes Eye Exam: Pupils Equal Ears & Nose Ears & Nose Exam: Nasal Mucosa [place] Throat Throat Exam: Oral Mucosa [place] & Moist Neck Neck Exam: Neck Supple, Trachea Midline Pulmonary Resp Exam: Breath Sounds Equal, No Distress, Rhonchi, Decreased Bases Cardiology CV Exam: Regular, Normal Sinus Rhythm Gastrointestinal/Abdomen GI Exam: Soft, Non-Tender, Bowel Sounds Present Extremeties Extremities Exam: Trace Edema Neurologic Neuro Exam: Alert, Awake, Oriented Psychiatric Psych Exam: Appropriate Responses Assessment/Plan Assessment Summary: Anemia of CKD, Hypertension, CKD Stage V Problem List: (1) CKD (chronic kidney disease) stage 5, GFR less than 15 ml/min ICD Codes: N18.5 - Chronic kidney disease, stage 5 Status: Chronic Plan: Biopsy report from 03/10/16 showed 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 Patient has advance stage 4-5 chronic kidney disease and is now ESRD Current RIJ tunneled catheter Plan Continue Epogen 10,000 units with dialysis. Continue PhosLo and Calcitrol Emollient ordered for pruritus with some improvement Out patient HD arrangements will be needed. Plan for AVF placement Tuesday. Seen on HD today, tolerating HD well. Plan next HD Tuesday Permanent Comment: Last Edited By: Lluvia Landeros on May 04, 2017 11:14 (2) Diastolic CHF ICD Codes: I50.30 - Unspecified diastolic (congestive) heart failure Status: Acute Plan: Lasix BID (3) Monoclonal gammopathy ICD Codes: D47.2 - Monoclonal gammopathy Status: Acute (4) Prostate enlargement ICD Codes: N40.0 - Benign prostatic hyperplasia without lower urinary tract symptoms Status: Chronic (5) Hyperkalemia ICD Codes: E87.5 - Hyperkalemia Status: Acute Plan: Resolved (6) Metabolic acidosis ICD Codes: E87.2 - Acidosis Status: Chronic Plan: Resolved (7) Anemia ICD Codes: D64.9 - Anemia, unspecified Status: Chronic Plan: Epogen with dialysis Plan Doyle Lora MD May 14, 2017 10:44
[2017-05-14] MEDS: SODIUM CHLORIDE 0.9% FLUSH 10 ML FLUSH IV FLUSH SCH ×2 (12:02→20:14)
[2017-05-14] MEDS: PANTOPRAZOLE SOD 40 MG DELAYED RELEASE TAB PO SCH ×2 (12:03→20:14)
[2017-05-14] MEDS: FUROSEMIDE 40 MG/4 ML VIAL IV PUSH SCH ×2 (12:03→17:40)
[2017-05-14] MEDS: FERROUS SULFATE 325 MG (65 MG ELEMENTAL IRON) TAB PO SCH ×2 (12:03→20:13)
[2017-05-14] MEDS: GABAPENTIN 300 MG CAP PO SCH (12:03)
[2017-05-14] MEDS: CALCITRIOL 0.25 MCG CAP PO SCH (12:03)
[2017-05-14] MEDS: CALCIUM ACETATE 667 MG CAP PO SCH ×3 (12:03→17:40)
[2017-05-14] MEDS: amLODIPine BESYLATE 5 MG TAB PO SCH (12:04)
[2017-05-14] MEDS: hydrALAZINE HCL 100 MG TAB PO SCH ×3 (12:04→17:40)
[2017-05-14] MEDS: DOCUSATE SODIUM 50 MG/SENNA 8.6 MG TAB PO SCH (12:04)
[2017-05-14] MEDS: CARVEDILOL 12.5 MG TAB PO SCH ×2 (12:04→20:13)
[2017-05-14] MEDS: CLOTRIMAZOLE 1% CREAM 15 GM TOPICAL SCH ×2 (12:04→20:14)
[2017-05-14] MEDS: CYCLOBENZAPRINE HCL 10 MG TAB PO PRN ×2 (14:28→22:46)
[2017-05-14] MEDS: hydrOXYzine HCL 25 MG TAB PO PRN (16:55)
--- NOTE | 2017-05-14 17:09 | HHI.PR ---
Subjective Remarks Follow-up for end-stage renal disease Patient seen after dialysis. He has no complaints. He is asking for a muscle relaxant cream. Objective Vitals Vital Signs Date Time Temp Pulse Resp B/P (MAP) Pulse Ox O2 Delivery O2 Flow Rate FiO2 05/14/17 16:38 71 05/14/17 15:00 Room Air 05/14/17 12:30 98.5 88 20 122/75 (91) 95 05/14/17 12:00 97 05/14/17 12:00 Room Air 05/14/17 09:00 74 05/14/17 08:00 98.5 70 20 124/63 (83) 98 05/14/17 04:00 98.3 69 16 126/59 (81) 99 05/14/17 03:46 70 05/14/17 00:00 99.4 81 16 110/65 (80) 95 05/14/17 00:00 Room Air 05/13/17 23:45 82 05/13/17 20:00 99.0 77 16 118/57 (77) 99 05/13/17 20:00 Room Air 05/13/17 19:44 81 05/13/17 18:01 70 123/59 (80) 05/13/17 17:30 97 21 I/O 05/13/17 05/13/17 05/13/17 05/14/17 05/14/17 05/14/17 07:00 15:00 23:00 07:00 15:00 23:00 Intake Total 720 ml 960 ml Output Total 400 ml 800 ml 2500 ml Balance -400 ml 720 ml 160 ml -2500 ml Intake Oral 720 ml 960 ml Output Urine Total 400 ml 800 ml Hemodialysis 2500 ml # Voids 6 Result Diagram: 05/12/17 0640 05/12/17 0640 Objective Remarks GENERAL: in NAD CARDIOVASCULAR: Regular rate and rhythm. Positive for heart murmur. Chest pain reproducible with palpation of his anterior chest. RESPIRATORY: Breath sounds equal bilaterally. No accessory muscle use. GASTROINTESTINAL: Abdomen soft, non-tender, nondistended. MUSCULOSKELETAL: No cyanosis, or edema. BACK: Nontender without obvious deformity. No CVA tenderness. Procedures 05/06/17 Right IJ permacath placement Medications and IVs Current Medications Morphine Sulfate (Morphine Inj) 4 mg ONCE ONCE IV PUSH Last administered on 05/01/17at 13:25; Start 05/01/17 at 13:00; Stop 05/01/17 at 13:01; Status DC Calcium Gluconate 1 gm/Dextrose 110 ml @ 110 mls/hr ONCE ONCE IV Last administered on 05/01/17at 16:34; Start 05/01/17 at 15:00; Stop 05/01/17 at 15:59; Status DC Pantoprazole Sodium (Protonix Inj) 40 mg ONCE ONCE IV PUSH Last administered on 05/01/17 16:34; Start 05/01/17 at 16:15; Stop 05/01/17 at 16:16; Status DC Sodium Chloride (NS Flush) 2 ml UNSCH PRN IV FLUSH FLUSH AFTER USING IV ACCESS ; Start 05/01/17 at 16:45 Sodium Chloride (NS Flush) 2 ml BID IV FLUSH Last administered on 05/14/17at 12: 02; Start 05/01/17 at 21:00 Acetaminophen (Tylenol) 650 mg Q4H PRN PO TEMP > 100.4 or Pain 1-2 Last administered on 05/10/17at 17:30; Start 05/01/17 at 16:45 Ondansetron HCl (Zofran Inj) 4 mg Q6H PRN IVP NAUSEA OR VOMITING; Start at 16:45 Naloxone HCl (Narcan Inj) 0.4 mg UNSCH PRN IV PUSH SEE LABEL COMMENTS; Start at 16:45 Magnesium Hydroxide (Milk Of Magnesia Liq) 30 ml Q12H PRN PO Mild constipation ; Start 05/01/17 at 16:45 Sennosides (Senokot) 17.2 mg Q12H PRN PO Moderate constipation Last administered on 05/12/17at 21:28; Start 05/01/17 at 16:45 Bisacodyl (Dulcolax Supp) 10 mg DAILY PRN RECTAL SEVERE CONSITIPATION; Start at 16:45 Morphine Sulfate (Morphine Inj) 4 mg ONCE ONCE IV PUSH Last administered on 05/01/17at 16:57; Start 05/01/17 at 17:00; Stop 05/01/17 at 17:01; Status DC Diphenhydramine HCl (Benadryl) 25 mg ONCE ONCE PO Last administered on at 20:30; Start 05/01/17 at 20:30; Stop 05/01/17 at 20:34; Status DC Influenza Virus Vaccine (Flu (Quadrivalent) Vaccine Inj) 0.5 ml ONCE ONCE IM Last administered on 05/02/17at 09:26; Start 05/02/17 at 10:00; Stop 05/02/17 at 10: 01; Status DC Amlodipine Besylate (Norvasc) 10 mg DAILY PO ; Start 05/02/17 at 09:00; Stop 05/02 at 14:12; Status DC Amlodipine Besylate (Norvasc) 10 mg DAILY PO Last administered on 05/14/17at 12: 04; Start 05/02/17 at 09:00 Aspirin (Ecotrin Ec) 81 mg DAILY PO ; Start 05/02/17 at 09:00; Stop 05/02/17 at 09 :00; Status DC Atorvastatin Calcium (Lipitor) 80 mg HS PO Last administered on 05/13/17at 20:39 ; Start 05/01/17 at 23:00 Bumetanide (Bumetanide) 1 mg DAILY PO Last administered on 05/02/17at 08:01; Start 05/02/17 at 09:00; Stop 05/02/17 at 14:18; Status DC Carvedilol (Coreg) 25 mg BID PO Last administered on 05/14/17at 12:04; Start 05/01/17 at 23:00 Clopidogrel Bisulfate (Plavix) 75 mg DAILY PO Last administered on 05/02/17at 08: 01; Start 05/02/17 at 09:00; Stop 05/02/17 at 09:18; Status DC Gabapentin (Neurontin) 600 mg TID PO Last administered on 05/03/17at 11:55; Start 05/02/17 at 09:00; Stop 05/03/17 at 16:04; Status DC Hydralazine HCl (Apresoline) 100 mg TID PO Last administered on 05/14/17at 12:04 ; Start 05/02/17 at 09:00 Hydrochlorothiazide (Microzide) 12.5 mg DAILY PO Last administered on 05/02/17at 08:00; Start 05/02/17 at 09:00; Stop 05/02/17 at 15:42; Status DC Acetaminophen/ Hydrocodone Bitart (Harvard 10-325 Mg) 1 tab Q4H PRN PO PAIN Last administered on 05/04/17 09:43; Start 05/01/17 at 23:00; Stop 05/04/17 at 13:38; Status DC Mirtazapine (Remeron) 30 mg HS PO Last administered on 05/13/17at 20:39; Start 05/01/17 at 23:00 Pantoprazole Sodium (Protonix) 40 mg DAILY PO ; Start 05/02/17 at 09:00; Status Cancel Tamsulosin HCl (Flomax) 0.4 mg HS PO Last administered on 05/13/17at 20:39; Start 05/01/17 at 23:00 Pantoprazole Sodium 80 mg/ Sodium Chloride 100 ml @ 10 mls/hr CONTINUOUS IV Last administered on 05/02/17 01:07; Start 05/02/17 at 01:00; Stop 05/02/17 at 09: 20; Status DC Sodium Polystyrene Sulfonate (Kayexalate Liq) 15 gm QID PO Last administered on 05/02/17 21:36; Start 05/02/17 at 09:00; Stop 05/02/17 at 21:01; Status DC Albuterol Sulfate (Albuterol Concentrated Neb) 10 mg ONCE ONCE INH Last administered on 05/02/17at 09:32; Start 05/02/17 at 09:00; Stop 05/02/17 at 09:01; Status DC Insulin Human Regular 10 units/ Dextrose 500.1 ml @ 500 mls/hr Q1H1M IV Last administered on 05/02/17at 09:40; Start 05/02/17 at 09:00; Stop 05/03/17 at 10:01; Status DC Pantoprazole Sodium (Protonix) 40 mg Q12HR PO Last administered on 05/14/17 12 :03; Start 05/02/17 at 10:00 Sodium Chloride 250 ml @ 15 mls/hr ONCE ONCE IV Last administered on 16:03; Start 05/02/17 at 09:30; Stop 05/03/17 at 02:09; Status DC Acetaminophen (Tylenol) 650 mg Q4H PRN PO SEE LABEL COMMENTS Last administered on 05/02/17at 15:05; Start 05/02/17 at 09:30; Stop 05/02/17 at 23:59; Status DC Diphenhydramine HCl (Benadryl) 25 mg Q4H PRN PO SEE LABEL COMMENTS Last administered on 05/02/17at 15:05; Start 05/02/17 at 09:30; Stop 05/02/17 at 23:59; Status DC Sodium Bicarbonate (Sodium Bicarbonate) 650 mg Q8HR PO Last administered on 01/15at 04:38; Start 05/02/17 at 15:15; Stop 05/08/17 at 10:29; Status DC Furosemide (Lasix Inj) 40 mg BID@09,18 IV PUSH Last administered on 05/14/17at 12:03; Start 05/02/17 at 18:00 Metoprolol Tartrate (Lopressor) 25 mg STK-MED ONCE .ROUTE Last administered on 05/03/17at 08:35; Start 05/03/17 at 08:35; Stop 05/03/17 at 08:36; Status DC Lactated Ringer's 1,000 ml @ 30 mls/hr Q24H PRN IV SEE LABEL COMMENTS; Start at 10:00; Stop 05/06/17 at 09:59; Status DC Sodium Chloride 500 ml @ 30 mls/hr [id number] PRN IV SEE LABEL COMMENTS; Start 05/03/17 at 10:00; Stop 05/06/17 at 09:59; Status DC Metoprolol Tartrate (Lopressor) 25 mg CONSTRUCTION ACCOUNTANT PRN PO SEE LABEL COMMENTS; Start 05/03/17 at 10:00; Stop 05/06/17 at 09:59; Status DC Povidone Iodine (Betadine 5% Antisepsis Kit) 1 applic CONSTRUCTION ACCOUNTANT PRN EACH NARE SEE LABEL COMMENTS; Start 05/03/17 at 10:00; Stop 05/06/17 at 09:59; Status DC Chlorhexidine Gluconate (Chlorhexidine 2% Cloth) 3 pack CONSTRUCTION ACCOUNTANT PRN TOPICAL SEE LABEL COMMENTS; Start 05/03/17 at 10:00; Stop 05/06/17 at 09:59; Status DC Insulin Human Regular (NovoLIN R INJ) See Protocol Table ... CONSTRUCTION ACCOUNTANT PRN SQ SEE PROTOCOL TABLE; Start 05/03/17 at 10:00; Stop 05/06/17 at 09:59; Status DC Gabapentin (Neurontin) 300 mg DAILY PO Last administered on 05/14/17at 12:03; Start 05/04/17 at 09:00 Propofol (Diprivan 200 Mg/20 ml Inj) 200 mg STK-MED ONCE IV ; Start 05/03/17 at 12:00; Stop 05/04/17 at 10:40; Status DC Lidocaine HCl (Xylocaine-Mpf 1% Inj) 5 ml STK-MED ONCE OTHER ; Start 05/03/17 at 12:00; Stop 05/04/17 at 10:40; Status DC Phenylephrine HCl (Neosynephrine/ NS 1000 Mcg/10ml Syr) 1,000 mcg STK-MED ONCE IV ; Start 05/03/17 at 12:00; Stop 05/04/17 at 10:40; Status DC Calcium Acetate (Phoslo) 667 mg TID PO Last administered on 05/14/17at 12:03; Start 05/04/17 at 13:00 Oxycodone/ Acetaminophen (Percocet 7.5-325 Mg) 1 tab Q4H PRN PO PAIN SCALE 3 TO 10 Last administered on 05/09/17at 05:37; Start 05/04/17 at 13:45; Stop at 08:40; Status DC Vancomycin HCl 1000 mg/Sodium Chloride 250 ml @ 250 mls/hr CONSTRUCTION ACCOUNTANT IV Last administered on 05/06/17at 11:15; Start 05/05/17 at 17:15; Stop 05/09/17 at 17:14; Status DC Cefazolin Sodium/ Dextrose 50 ml @ 100 mls/hr CONSTRUCTION ACCOUNTANT IV ; Start 05/05/17 at 17 :15; Stop 05/09/17 at 17:14; Status DC Sodium Chloride 1,000 ml @ 0 mls/hr Q0M PRN OTHER For Prime & Rinse Back; Start 05/06/17 at 09:23 Heparin Sodium (Porcine) (Heparin Inj) 8,000 units UNSCH PRN IV FLUSH WITH DIALYSIS; Start 05/06/17 at 09:30 Sodium Chloride 1,000 ml @ 200 mls/hr Q5H PRN IV WITH DIALYSIS; Start 05/06/17 at 09:23 Sodium Chloride 1,000 ml @ 0 mls/hr Q0M PRN OTHER WITH DIALYSIS; Start 05/06/17 at 09:23 Mannitol (Mannitol Inj) 12.5 gm UNSCH PRN IV WITH DIALYSIS; Start 05/06/17 at 09 :30 Albumin Human 100 ml @ 60 mls/hr UNSCH PRN IV WITH DIALYSIS; Start 05/06/17 at 09:30 Sodium Chloride (NS Flush) 5 ml UNSCH PRN IV FLUSH WITH DIALYSIS; Start at 09:30 Heparin Sodium (Porcine) (Heparin Inj) UNSCH PRN .XX WITH DIALYSIS Last administered on 05/14/17at 09:32; Start 05/06/17 at 09:30 Gentamicin Sulfate (Gentamicin Inj) 20 mg UNSCH PRN OTHER WITH DIALYSIS Last administered on 05/14/17at 09:33; Start 05/06/17 at 09:30 Ondansetron HCl (Zofran Inj) 4 mg UNSCH PRN IV PUSH WITH DIALYSIS; Start at 09:30 Acetaminophen (Tylenol) 650 mg UNSCH PRN PO for headach, pain, temp > 101F; Start 05/06/17 at 09:30 Diphenhydramine HCl (Benadryl) 25 mg UNSCH PRN PO for hives/itching/anaphylaxis ; Start 05/06/17 at 09:30 Nitroglycerin (Nitrostat Sl) 0.4 mg UNSCH PRN SL CHEST PAIN; Start 05/06/17 at 09:30 Clonidine (Catapres) 0.1 mg UNSCH PRN PO for BP > 180/100 X 2 readings; Start 05/06/17 at 09:30 Epoetin Salvatore (Epogen Inj) 10,000 units UNSCH PRN IV PUSH WITH DIALYSIS Last administered on 05/14/17at 09:33; Start 05/06/17 at 09:30 Gelatin (Gelfoam 12 Mm/7 Mm Top) 1 foam UNSCH PRN TOP SEE LABEL COMMENTS; Start 05/06/17 at 09:30 Hydroxyzine HCl (Atarax) 25 mg Q6H PRN PO Itching Last administered on at 16:55; Start 05/06/17 at 09:30 Calcitriol (Rocaltrol) 0.25 mcg DAILY PO Last administered on 05/14/17at 12:03; Start 05/07/17 at 09:00 Fentanyl Citrate (fentaNYL INJ) 100 mcg STK-MED ONCE .ROUTE ; Start 05/06/17 at 12:20; Stop 05/06/17 at 12:21; Status DC Fentanyl Citrate (fentaNYL INJ) 100 mcg STK-MED ONCE .ROUTE ; Start 05/06/17 at 12:20; Stop 05/06/17 at 12:21; Status DC Midazolam HCl (Versed Inj) 4 mg STK-MED ONCE .ROUTE ; Start 05/06/17 at 12:20; Stop 05/06/17 at 12:21; Status DC Heparin Sodium (Porcine) (*HEPARIN INJ Periprocedural ONLY) 10,000 units STK- MED ONCE .ROUTE Last administered on 05/06/17at 12:55; Start 05/06/17 at 12:23; Stop 05/06/17 at 12:24; Status DC Lidocaine/ Epinephrine (Xylocaine-Epi 1%-1:100,000 Inj) 30 ml STK-MED ONCE .ROUTE Last administered on 05/06/17at 12:50; Start 05/06/17 at 12:23; Stop at 12:24; Status DC Sodium Chloride (NS Flush) UNSCH PRN IV FLUSH SEE PROTOCOL; Start 05/06/17 at 13:15 Heparin Sodium (Porcine) (Heparin Inj) UNSCH PRN IV FLUSH SEE PROTOCOL; Start 05/06/17 at 13:15 Diphenhydramine HCl (Benadryl 2% Cream) 1 applic TID PRN TOPICAL ITCHING Last administered on 05/13/17at 09:00; Start 05/07/17 at 10:45 Sodium Chloride 250 ml @ 15 mls/hr ONCE ONCE IV Last administered on at 15:58; Start 05/08/17 at 09:00; Stop 05/09/17 at 01:39; Status DC Ferrous Sulfate (Ferrous Sulfate) 325 mg BID PO Last administered on 05/14/17at 12:03; Start 05/08/17 at 11:15 Senna/Docusate Sodium (Kasey-Colace) 1 tab DAILY PO Last administered on at 12:04; Start 05/08/17 at 11:15 Oxycodone/ Acetaminophen (Percocet 7.5-325 Mg) 1 tab Q4H PRN PO PAIN SCALE 7 TO 10 Last administered on 05/14/17at 16:44; Start 05/09/17 at 08:45 Oxycodone/ Acetaminophen (Percocet 5-325 Mg) 1 tab Q4H PRN PO PAIN SCALE 3 TO 6; Start 05/09/17 at 08:45 Clotrimazole (Lotrimin 1% Cream) 1 applic Q12HR TOPICAL Last administered on at 12:04; Start 05/10/17 at 14:00 Multi-Ingredient Ointment (Eucerin Cream) 1 applic Q6H PRN TOPICAL dry skin; Start 05/11/17 at 10:15 Cyclobenzaprine HCl (Flexeril) 5 mg Q8H PRN PO PAIN SCALE 1 TO 6 Last administered on 05/14/17at 14:28; Start 05/13/17 at 16:45 A/P Problem List: (1) GI bleed ICD Code: K92.2 - Gastrointestinal hemorrhage, unspecified Status: Acute (2) CKD (chronic kidney disease) stage 5, GFR less than 15 ml/min ICD Code: N18.5 - Chronic kidney disease, stage 5 Status: Chronic Permanent Comment: Last Edited By: Lluvia Landeros on May 04, 2017 11:14 (3) Chest pain ICD Code: R07.9 - Chest pain, unspecified Status: Acute (4) Hypertension ICD Code: I10 - Essential (primary) hypertension Status: Chronic Assessment and Plan This is a 57 y/o Acute anemia secondary to acute blood loss, renal failure: Monitor labs. - No sign of active bleeding. Appreciate GI recommendations. Status post EGD. Continue Protonix. Status post transfusion of 1 unit PRBCs. Hemoglobin is stable. Mildly elevated troponin: Likely secondary to renal failure. Appreciate cardiology recommendations. Atypical chest pain -This is reproducible. Most likely musculoskeletal. Can give Tylenol as needed for pain. Need to avoid NSAIDs due to acute renal failure. Heart murmur: -Echocardiogram shows moderate aortic valve stenosis. Appreciate cardiothoracic surgery recommendations. Repeat echo in 6 months. Hyperkalemia: Improved. Chronic kidney disease stage V - Appreciate nephrology recommendations. Permacath placed. Continue hemodialysis per nephrology (Tue/Thur/Sat). 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 -Continue Epogen 10,000 units with dialysis and PhosLo and Calcitrol -Vascular surgery consult and patient scheduled for aVF on Tuesday. Dialysis yesterday 4 liters removed Hypertension - Continue amlodipine, Bumex, carvedilol, HCTZ, hydralazine. Hyperlipidemia -Continue statin. Rash/pruritis: Improving. Atarax, Benadryl cream as needed. Add clotrimazole cream. Emollient ordered for pruritus Fever on 05/10/2017 - No obvious source of infection. Chest x-ray shows no acute findings. UA does not suggest UTI he is asymptomatic. Pending blood cultures. Patient has not had any fever since then. Continue to monitor clinically off of antibiotics. Muscle spasms/stiffness -Patient on Flexeril. We will add muscle relaxant cream. DVT prophylaxis: SCDs. Problem Qualifiers (1) GI bleed: Qualified Codes: K92.2 - Gastrointestinal hemorrhage, unspecified (2) Chest pain: Qualified Codes: R07.9 - Chest pain, unspecified Wandy Hernandez MD May 14, 2017 17:09
[2017-05-14] MEDS ORDERED: EUCERIN CREAM 120 GM JAR TOPICAL PRN (17:15)
[2017-05-14] MEDS: diphenhydrAMINE HCL 2%/ZINC ACETATE 0.1% CREAM 30 APPLIC/30 GM TUBE TOPICAL PRN (17:41)
[2017-05-14] MEDS: TAMSULOSIN HCL 0.4 MG CAP PO SCH (20:13)
[2017-05-14] MEDS: ATORVASTATIN 80 MG TAB PO SCH (20:13)
[2017-05-14] MEDS: SENNOSIDES 8.6 MG TAB PO PRN (20:13)
[2017-05-14] MEDS: MIRTAZAPINE 15 MG TAB PO SCH (20:14)
[2017-05-15] VITALS (7 sets, daily range): BP systolic 113–137; BP diastolic 55–83; PULSE 63–85; RESP 16–20; TEMP 97.4–98.6; O2SAT 94–98
[2017-05-15] MEDS: oxyCODONE/ACETAMINOPHEN 7.5 MG/325 MG TAB PO PRN ×5 (00:09→21:57)
[2017-05-15] MEDS: hydrOXYzine HCL 25 MG TAB PO PRN ×3 (00:10→17:48)
[2017-05-15] MEDS: MAGNESIUM HYDROXIDE SUSP 30 ML CUP PO PRN (04:37)
[2017-05-15] MEDS: CALCITRIOL 0.25 MCG CAP PO SCH (07:54)
[2017-05-15] MEDS: DOCUSATE SODIUM 50 MG/SENNA 8.6 MG TAB PO SCH (07:54)
[2017-05-15] MEDS: GABAPENTIN 300 MG CAP PO SCH (07:54)
[2017-05-15] MEDS: PANTOPRAZOLE SOD 40 MG DELAYED RELEASE TAB PO SCH ×2 (07:54→21:57)
[2017-05-15] MEDS: FUROSEMIDE 40 MG/4 ML VIAL IV PUSH SCH ×2 (07:54→17:47)
[2017-05-15] MEDS: CALCIUM ACETATE 667 MG CAP PO SCH ×3 (07:55→17:47)
[2017-05-15] MEDS: CARVEDILOL 12.5 MG TAB PO SCH ×2 (07:55→21:56)
[2017-05-15] MEDS: FERROUS SULFATE 325 MG (65 MG ELEMENTAL IRON) TAB PO SCH ×2 (07:55→21:57)
[2017-05-15] MEDS: amLODIPine BESYLATE 5 MG TAB PO SCH (07:55)
[2017-05-15] MEDS: hydrALAZINE HCL 100 MG TAB PO SCH ×3 (07:55→17:47)
[2017-05-15] MEDS: CYCLOBENZAPRINE HCL 10 MG TAB PO PRN ×2 (07:56→17:48)
[2017-05-15] MEDS: CLOTRIMAZOLE 1% CREAM 15 GM TOPICAL SCH ×2 (07:57→21:58)
[2017-05-15] MEDS: SODIUM CHLORIDE 0.9% FLUSH 10 ML FLUSH IV FLUSH SCH ×2 (07:57→21:58)
[2017-05-15] MEDS ORDERED: MENTHOL/METHYL SALICYLATE OINT 30 GM TUBE TOPICAL PRN (12:15)
--- NOTE | 2017-05-15 12:17 | HHI.PR ---
Subjective Remarks Follow-up for end-stage renal disease Patient has seen for [facility]. Otherwise he has no other complaints. He states doing well. No acute events overnight. Objective Vitals Vital Signs Date Time Temp Pulse Resp B/P (MAP) Pulse Ox O2 Delivery O2 Flow Rate FiO2 05/15/17 09:04 Room Air 05/15/17 08:00 98.5 73 20 126/71 (89) 97 05/15/17 08:00 63 05/15/17 04:06 Room Air 05/15/17 04:00 97.4 67 17 137/77 (97) 97 05/15/17 04:00 70 05/15/17 00:00 66 05/15/17 00:00 97.5 64 16 113/60 (77) 98 05/15/17 00:00 Room Air 05/14/17 20:00 98.4 75 18 145/72 (96) 97 05/14/17 20:00 Room Air 05/14/17 20:00 70 05/14/17 18:28 Room Air 05/14/17 16:38 71 05/14/17 16:00 98.1 73 20 120/58 (78) 96 05/14/17 15:00 Room Air 05/14/17 12:30 98.5 88 20 122/75 (91) 95 I/O 05/14/17 05/14/17 05/14/17 05/15/17 05/15/17 05/15/17 07:00 15:00 23:00 07:00 15:00 23:00 Intake Total 960 ml 480 ml 480 ml Output Total 800 ml 2500 ml 600 ml Balance 160 ml -2500 ml 480 ml -120 ml Intake Oral 960 ml 480 ml 480 ml Output Urine Total 800 ml 600 ml Hemodialysis 2500 ml # Voids 4 # Bowel Movements 0 Result Diagram: 05/12/17 0640 05/12/17 0640 Objective Remarks GENERAL: in NAD CARDIOVASCULAR: Regular rate and rhythm. Positive for heart murmur. Chest pain reproducible with palpation of his anterior chest. RESPIRATORY: Breath sounds equal bilaterally. No accessory muscle use. GASTROINTESTINAL: Abdomen soft, non-tender, nondistended. MUSCULOSKELETAL: No cyanosis, or edema. BACK: Nontender without obvious deformity. No CVA tenderness. Procedures 05/06/17 Right IJ permacath placement Medications and IVs Current Medications Morphine Sulfate (Morphine Inj) 4 mg ONCE ONCE IV PUSH Last administered on 05/01/17at 13:25; Start 05/01/17 at 13:00; Stop 05/01/17 at 13:01; Status DC Calcium Gluconate 1 gm/Dextrose 110 ml @ 110 mls/hr ONCE ONCE IV Last administered on 05/01/17 16:34; Start 05/01/17 at 15:00; Stop 05/01/17 at 15:59; Status DC Pantoprazole Sodium (Protonix Inj) 40 mg ONCE ONCE IV PUSH Last administered on 05/01/17 16:34; Start 05/01/17 at 16:15; Stop 05/01/17 at 16:16; Status DC Sodium Chloride (NS Flush) 2 ml UNSCH PRN IV FLUSH FLUSH AFTER USING IV ACCESS ; Start 05/01/17 at 16:45 Sodium Chloride (NS Flush) 2 ml BID IV FLUSH Last administered on 05/15/17at 07: 57; Start 05/01/17 at 21:00 Acetaminophen (Tylenol) 650 mg Q4H PRN PO TEMP > 100.4 or Pain 1-2 Last administered on 05/10/17at 17:30; Start 05/01/17 at 16:45 Ondansetron HCl (Zofran Inj) 4 mg Q6H PRN IVP NAUSEA OR VOMITING; Start at 16:45 Naloxone HCl (Narcan Inj) 0.4 mg UNSCH PRN IV PUSH SEE LABEL COMMENTS; Start at 16:45 Magnesium Hydroxide (Milk Of Magnesia Liq) 30 ml Q12H PRN PO Mild constipation Last administered on 05/15/17at 04:37; Start 05/01/17 at 16:45 Sennosides (Senokot) 17.2 mg Q12H PRN PO Moderate constipation Last administered on 05/14/17at 20:13; Start 05/01/17 at 16:45 Bisacodyl (Dulcolax Supp) 10 mg DAILY PRN RECTAL SEVERE CONSITIPATION; Start at 16:45 Morphine Sulfate (Morphine Inj) 4 mg ONCE ONCE IV PUSH Last administered on 05/01/17at 16:57; Start 05/01/17 at 17:00; Stop 05/01/17 at 17:01; Status DC Diphenhydramine HCl (Benadryl) 25 mg ONCE ONCE PO Last administered on at 20:30; Start 05/01/17 at 20:30; Stop 05/01/17 at 20:34; Status DC Influenza Virus Vaccine (Flu (Quadrivalent) Vaccine Inj) 0.5 ml ONCE ONCE IM Last administered on 05/02/17at 09:26; Start 05/02/17 at 10:00; Stop 05/02/17 at 10: 01; Status DC Amlodipine Besylate (Norvasc) 10 mg DAILY PO ; Start 05/02/17 at 09:00; Stop 05/02 at 14:12; Status DC Amlodipine Besylate (Norvasc) 10 mg DAILY PO Last administered on 05/15/17at 07: 55; Start 05/02/17 at 09:00 Aspirin (Ecotrin Ec) 81 mg DAILY PO ; Start 05/02/17 at 09:00; Stop 05/02/17 at 09 :00; Status DC Atorvastatin Calcium (Lipitor) 80 mg HS PO Last administered on 05/14/17at 20:13 ; Start 05/01/17 at 23:00 Bumetanide (Bumetanide) 1 mg DAILY PO Last administered on 05/02/17at 08:01; Start 05/02/17 at 09:00; Stop 05/02/17 at 14:18; Status DC Carvedilol (Coreg) 25 mg BID PO Last administered on 05/15/17at 07:55; Start 05/01/17 at 23:00 Clopidogrel Bisulfate (Plavix) 75 mg DAILY PO Last administered on 05/02/17at 08: 01; Start 05/02/17 at 09:00; Stop 05/02/17 at 09:18; Status DC Gabapentin (Neurontin) 600 mg TID PO Last administered on 05/03/17at 11:55; Start 05/02/17 at 09:00; Stop 05/03/17 at 16:04; Status DC Hydralazine HCl (Apresoline) 100 mg TID PO Last administered on 05/15/17at 07:55 ; Start 05/02/17 at 09:00 Hydrochlorothiazide (Microzide) 12.5 mg DAILY PO Last administered on 05/02/17at 08:00; Start 05/02/17 at 09:00; Stop 05/02/17 at 15:42; Status DC Acetaminophen/ Hydrocodone Bitart (Patagonia 10-325 Mg) 1 tab Q4H PRN PO PAIN Last administered on 05/04/17at 09:43; Start 05/01/17 at 23:00; Stop 05/04/17 at 13:38; Status DC Mirtazapine (Remeron) 30 mg HS PO Last administered on 05/14/17at 20:14; Start 05/01/17 at 23:00 Pantoprazole Sodium (Protonix) 40 mg DAILY PO ; Start 05/02/17 at 09:00; Status Cancel Tamsulosin HCl (Flomax) 0.4 mg HS PO Last administered on 05/14/17at 20:13; Start 05/01/17 at 23:00 Pantoprazole Sodium 80 mg/ Sodium Chloride 100 ml @ 10 mls/hr CONTINUOUS IV Last administered on 05/02/17 01:07; Start 05/02/17 at 01:00; Stop 05/02/17 at 09: 20; Status DC Sodium Polystyrene Sulfonate (Kayexalate Liq) 15 gm QID PO Last administered on 05/02/17 21:36; Start 05/02/17 at 09:00; Stop 05/02/17 at 21:01; Status DC Albuterol Sulfate (Albuterol Concentrated Neb) 10 mg ONCE ONCE INH Last administered on 05/02/17 09:32; Start 05/02/17 at 09:00; Stop 05/02/17 at 09:01; Status DC Insulin Human Regular 10 units/ Dextrose 500.1 ml @ 500 mls/hr Q1H1M IV Last administered on 05/02/17 09:40; Start 05/02/17 at 09:00; Stop 05/03/17 at 10:01; Status DC Pantoprazole Sodium (Protonix) 40 mg Q12HR PO Last administered on 05/15/17at 07 :54; Start 05/02/17 at 10:00 Sodium Chloride 250 ml @ 15 mls/hr ONCE ONCE IV Last administered on at 16:03; Start 05/02/17 at 09:30; Stop 05/03/17 at 02:09; Status DC Acetaminophen (Tylenol) 650 mg Q4H PRN PO SEE LABEL COMMENTS Last administered on 05/02/17at 15:05; Start 05/02/17 at 09:30; Stop 05/02/17 at 23:59; Status DC Diphenhydramine HCl (Benadryl) 25 mg Q4H PRN PO SEE LABEL COMMENTS Last administered on 05/02/17at 15:05; Start 05/02/17 at 09:30; Stop 05/02/17 at 23:59; Status DC Sodium Bicarbonate (Sodium Bicarbonate) 650 mg Q8HR PO Last administered on 01/15at 04:38; Start 05/02/17 at 15:15; Stop 05/08/17 at 10:29; Status DC Furosemide (Lasix Inj) 40 mg BID@,18 IV PUSH Last administered on 05/15/17at 07:54; Start 05/02/17 at 18:00 Metoprolol Tartrate (Lopressor) 25 mg STK-MED ONCE .ROUTE Last administered on 05/03/17at 08:35; Start 05/03/17 at 08:35; Stop 05/03/17 at 08:36; Status DC Lactated Ringer's 1,000 ml @ 30 mls/hr Q24H PRN IV SEE LABEL COMMENTS; Start at 10:00; Stop 05/06/17 at 09:59; Status DC Sodium Chloride 500 ml @ 30 mls/hr [id number] PRN IV SEE LABEL COMMENTS; Start 05/03/17 at 10:00; Stop 05/06/17 at 09:59; Status DC Metoprolol Tartrate (Lopressor) 25 mg SHOE FOLDER PRN PO SEE LABEL COMMENTS; Start 05/03/17 at 10:00; Stop 05/06/17 at 09:59; Status DC Povidone Iodine (Betadine 5% Antisepsis Kit) 1 applic SHOE FOLDER PRN EACH NARE SEE LABEL COMMENTS; Start 05/03/17 at 10:00; Stop 05/06/17 at 09:59; Status DC Chlorhexidine Gluconate (Chlorhexidine 2% Cloth) 3 pack SHOE FOLDER PRN TOPICAL SEE LABEL COMMENTS; Start 05/03/17 at 10:00; Stop 05/06/17 at 09:59; Status DC Insulin Human Regular (NovoLIN R INJ) See Protocol Table ... SHOE FOLDER PRN SQ SEE PROTOCOL TABLE; Start 05/03/17 at 10:00; Stop 05/06/17 at 09:59; Status DC Gabapentin (Neurontin) 300 mg DAILY PO Last administered on 05/15/17at 07:54; Start 05/04/17 at 09:00 Propofol (Diprivan 200 Mg/20 ml Inj) 200 mg STK-MED ONCE IV ; Start 05/03/17 at 12:00; Stop 05/04/17 at 10:40; Status DC Lidocaine HCl (Xylocaine-Mpf 1% Inj) 5 ml STK-MED ONCE OTHER ; Start 05/03/17 at 12:00; Stop 05/04/17 at 10:40; Status DC Phenylephrine HCl (Neosynephrine/ NS 1000 Mcg/10ml Syr) 1,000 mcg STK-MED ONCE IV ; Start 05/03/17 at 12:00; Stop 05/04/17 at 10:40; Status DC Calcium Acetate (Phoslo) 667 mg TID PO Last administered on 05/15/17at 07:55; Start 05/04/17 at 13:00 Oxycodone/ Acetaminophen (Percocet 7.5-325 Mg) 1 tab Q4H PRN PO PAIN SCALE 3 TO 10 Last administered on 05/09/17at 05:37; Start 05/04/17 at 13:45; Stop at 08:40; Status DC Vancomycin HCl 1000 mg/Sodium Chloride 250 ml @ 250 mls/hr SHOE FOLDER IV Last administered on 05/06/17at 11:15; Start 05/05/17 at 17:15; Stop 05/09/17 at 17:14; Status DC Cefazolin Sodium/ Dextrose 50 ml @ 100 mls/hr SHOE FOLDER IV ; Start 05/05/17 at 17 :15; Stop 05/09/17 at 17:14; Status DC Sodium Chloride 1,000 ml @ 0 mls/hr Q0M PRN OTHER For Prime & Rinse Back; Start 05/06/17 at 09:23 Heparin Sodium (Porcine) (Heparin Inj) 8,000 units UNSCH PRN IV FLUSH WITH DIALYSIS; Start 05/06/17 at 09:30 Sodium Chloride 1,000 ml @ 200 mls/hr Q5H PRN IV WITH DIALYSIS; Start 05/06/17 at 09:23 Sodium Chloride 1,000 ml @ 0 mls/hr Q0M PRN OTHER WITH DIALYSIS; Start 05/06/17 at 09:23 Mannitol (Mannitol Inj) 12.5 gm UNSCH PRN IV WITH DIALYSIS; Start 05/06/17 at 09 :30 Albumin Human 100 ml @ 60 mls/hr UNSCH PRN IV WITH DIALYSIS; Start 05/06/17 at 09:30 Sodium Chloride (NS Flush) 5 ml UNSCH PRN IV FLUSH WITH DIALYSIS; Start at 09:30 Heparin Sodium (Porcine) (Heparin Inj) UNSCH PRN .XX WITH DIALYSIS Last administered on 05/14/17at 09:32; Start 05/06/17 at 09:30 Gentamicin Sulfate (Gentamicin Inj) 20 mg UNSCH PRN OTHER WITH DIALYSIS Last administered on 05/14/17at 09:33; Start 05/06/17 at 09:30 Ondansetron HCl (Zofran Inj) 4 mg UNSCH PRN IV PUSH WITH DIALYSIS; Start at 09:30 Acetaminophen (Tylenol) 650 mg UNSCH PRN PO for headach, pain, temp > 101F; Start 05/06/17 at 09:30 Diphenhydramine HCl (Benadryl) 25 mg UNSCH PRN PO for hives/itching/anaphylaxis ; Start 05/06/17 at 09:30 Nitroglycerin (Nitrostat Sl) 0.4 mg UNSCH PRN SL CHEST PAIN; Start 05/06/17 at 09:30 Clonidine (Catapres) 0.1 mg UNSCH PRN PO for BP > 180/100 X 2 readings; Start 05/06/17 at 09:30 Epoetin Salvatore (Epogen Inj) 10,000 units UNSCH PRN IV PUSH WITH DIALYSIS Last administered on 05/14/17at 09:33; Start 05/06/17 at 09:30 Gelatin (Gelfoam 12 Mm/7 Mm Top) 1 foam UNSCH PRN TOP SEE LABEL COMMENTS; Start 05/06/17 at 09:30 Hydroxyzine HCl (Atarax) 25 mg Q6H PRN PO Itching Last administered on at 07:56; Start 05/06/17 at 09:30 Calcitriol (Rocaltrol) 0.25 mcg DAILY PO Last administered on 05/15/17at 07:54; Start 05/07/17 at 09:00 Fentanyl Citrate (fentaNYL INJ) 100 mcg STK-MED ONCE .ROUTE ; Start 05/06/17 at 12:20; Stop 05/06/17 at 12:21; Status DC Fentanyl Citrate (fentaNYL INJ) 100 mcg STK-MED ONCE .ROUTE ; Start 05/06/17 at 12:20; Stop 05/06/17 at 12:21; Status DC Midazolam HCl (Versed Inj) 4 mg STK-MED ONCE .ROUTE ; Start 05/06/17 at 12:20; Stop 05/06/17 at 12:21; Status DC Heparin Sodium (Porcine) (*HEPARIN INJ Periprocedural ONLY) 10,000 units STK- MED ONCE .ROUTE Last administered on 05/06/17at 12:55; Start 05/06/17 at 12:23; Stop 05/06/17 at 12:24; Status DC Lidocaine/ Epinephrine (Xylocaine-Epi 1%-1:100,000 Inj) 30 ml STK-MED ONCE .ROUTE Last administered on 05/06/17at 12:50; Start 05/06/17 at 12:23; Stop at 12:24; Status DC Sodium Chloride (NS Flush) UNSCH PRN IV FLUSH SEE PROTOCOL; Start 05/06/17 at 13:15 Heparin Sodium (Porcine) (Heparin Inj) UNSCH PRN IV FLUSH SEE PROTOCOL; Start 05/06/17 at 13:15 Diphenhydramine HCl (Benadryl 2% Cream) 1 applic TID PRN TOPICAL ITCHING Last administered on 05/14/17at 17:41; Start 05/07/17 at 10:45 Sodium Chloride 250 ml @ 15 mls/hr ONCE ONCE IV Last administered on at 15:58; Start 05/08/17 at 09:00; Stop 05/09/17 at 01:39; Status DC Ferrous Sulfate (Ferrous Sulfate) 325 mg BID PO Last administered on 05/15/17at 07:55; Start 05/08/17 at 11:15 Senna/Docusate Sodium (Kasey-Colace) 1 tab DAILY PO Last administered on at 07:54; Start 05/08/17 at 11:15 Oxycodone/ Acetaminophen (Percocet 7.5-325 Mg) 1 tab Q4H PRN PO PAIN SCALE 7 TO 10 Last administered on 05/15/17at 04:35; Start 05/09/17 at 08:45 Oxycodone/ Acetaminophen (Percocet 5-325 Mg) 1 tab Q4H PRN PO PAIN SCALE 3 TO 6; Start 05/09/17 at 08:45 Clotrimazole (Lotrimin 1% Cream) 1 applic Q12HR TOPICAL Last administered on at 07:57; Start 05/10/17 at 14:00 Multi-Ingredient Ointment (Eucerin Cream) 1 applic Q6H PRN TOPICAL dry skin; Start 05/11/17 at 10:15; Stop 05/14/17 at 17:13; Status DC Cyclobenzaprine HCl (Flexeril) 5 mg Q8H PRN PO PAIN SCALE 1 TO 6 Last administered on 05/15/17at 07:56; Start 05/13/17 at 16:45 Multi-Ingredient Ointment (Eucerin Cream) 1 applic Q6H PRN TOPICAL dry skin Last administered on 05/14/17at 17:41; Start 05/14/17 at 17:15 A/P Problem List: (1) GI bleed ICD Code: K92.2 - Gastrointestinal hemorrhage, unspecified Status: Acute (2) CKD (chronic kidney disease) stage 5, GFR less than 15 ml/min ICD Code: N18.5 - Chronic kidney disease, stage 5 Status: Chronic Permanent Comment: Last Edited By: Lluvia Landeros on May 04, 2017 11:14 (3) Chest pain ICD Code: R07.9 - Chest pain, unspecified Status: Acute (4) Hypertension ICD Code: I10 - Essential (primary) hypertension Status: Chronic Assessment and Plan This is a 57 y/o Acute anemia secondary to acute blood loss, renal failure: Monitor labs. - No sign of active bleeding. Appreciate GI recommendations. Status post EGD. Continue Protonix. Status post transfusion of 1 unit PRBCs. Hemoglobin is stable. Mildly elevated troponin: Likely secondary to renal failure. Appreciate cardiology recommendations. Atypical chest pain -This is reproducible. Most likely musculoskeletal. Can give Tylenol as needed for pain. Need to avoid NSAIDs due to acute renal failure. Heart murmur: -Echocardiogram shows moderate aortic valve stenosis. Appreciate cardiothoracic surgery recommendations. Repeat echo in 6 months. Hyperkalemia: Improved. Chronic kidney disease stage V - Appreciate nephrology recommendations. Permacath placed. Continue hemodialysis per nephrology (Kevin/Brandon/Michael). -Per cover cutter patient had a biopsy on 03/10/2016 showed nodular glomerular sclerosis with a membranoproliferative pattern, severe interstitial fibrosis, severe arteriosclerosis, severe arteriolar hyalinosis, but without immune deposits or myeloma casts. -Continue Epogen 10,000 units with dialysis and PhosLo and Calcitrol -Vascular surgery consult and patient scheduled for aVF tomorrow. Hypertension - Continue amlodipine, Bumex, carvedilol, HCTZ, hydralazine. Hyperlipidemia -Continue statin. Rash/pruritis: Improving. Atarax, Benadryl cream as needed. Add clotrimazole cream. Emollient ordered for pruritus Fever on 05/10/2017 - No obvious source of infection. Chest x-ray shows no acute findings. UA does not suggest UTI he is asymptomatic. Pending blood cultures. Patient has not had any fever since then. Continue to monitor clinically off of antibiotics. Muscle spasms/stiffness -Patient on Flexeril. Will add BenGay. DVT prophylaxis: SCDs. Discharge Planning Patient scheduled for AVF tomorrow. Still waiting for a chair and dialysis. Problem Qualifiers (1) GI bleed: Qualified Codes: K92.2 - Gastrointestinal hemorrhage, unspecified (2) Chest pain: Qualified Codes: R07.9 - Chest pain, unspecified Wandy Hernandez MD May 15, 2017 12:17
--- NOTE | 2017-05-15 17:56 | HHI.NPPN ---
Subjective General Problems: Anemia Renal Failure: End Stage Renal Disease History of Present Illness 57-year-old male with a past medical history of hypertension, history of chronic kidney disease, chronic obstructive pulmonary disease, ischemic heart disease, benign prostatic hypertrophy, congestive heart failure, came to the hospital with complaint of chest pain and generalized weakness. I was called to see the patient because of elevated BUN and creatinine. Additional Remarks no acute complaints, ongoing shoulder pains Review of Systems General Constitutional: Fatigue Respiratory Respiratory Remarks Mild SOB Cardiovascular Cardiac Remarks Denies CP Gastrointestinal GI Remarks No Abdominal pain Objective Data Data Vital Signs Date Time Temp Pulse Resp B/P (MAP) Pulse Ox O2 Delivery O2 Flow Rate FiO2 05/15/17 16:00 71 05/15/17 16:00 98.4 67 20 118/55 (76) 96 05/15/17 13:59 Room Air 05/15/17 12:00 64 05/15/17 12:00 98.6 65 20 118/58 (78) 94 05/15/17 09:04 Room Air 05/15/17 08:00 98.5 73 20 126/71 (89) 97 05/15/17 08:00 63 05/15/17 04:06 Room Air 05/15/17 04:00 97.4 67 17 137/77 (97) 97 05/15/17 04:00 70 05/15/17 00:00 66 05/15/17 00:00 97.5 64 16 113/60 (77) 98 05/15/17 00:00 Room Air 05/14/17 20:00 98.4 75 18 145/72 (96) 97 05/14/17 20:00 Room Air 05/14/17 20:00 70 05/14/17 18:28 Room Air -: 05/12/17 0640 05/12/17 0640 Tubes & Lines: Perma-Cath Tubes & Lines Comment right chest wall Physical Exam General Appearance: No Acute Distress, Comfortable Eyes Eye Exam: Pupils Equal Ears & Nose Ears & Nose Exam: Nasal Mucosa Teague Throat Throat Exam: Oral Mucosa Teague & Moist Neck Neck Exam: Neck Supple, Trachea Midline Pulmonary Resp Exam: Breath Sounds Equal, No Distress, Rhonchi, Decreased Bases Cardiology CV Exam: Regular, Normal Sinus Rhythm Gastrointestinal/Abdomen GI Exam: Soft, Non-Tender, Bowel Sounds Present Extremeties Extremities Exam: Trace Edema Neurologic Neuro Exam: Alert, Awake, Oriented Psychiatric Psych Exam: Appropriate Responses Assessment/Plan Assessment Summary: Anemia of CKD, Hypertension, CKD Stage V Problem List: (1) CKD (chronic kidney disease) stage 5, GFR less than 15 ml/min ICD Codes: N18.5 - Chronic kidney disease, stage 5 Status: Chronic Plan: Biopsy report from 03/10/16 showed 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 Patient has advance stage 4-5 chronic kidney disease and is now ESRD Current RIJ tunneled catheter Plan Continue Epogen 10,000 units with dialysis. Continue PhosLo and Calcitrol Emollient ordered for pruritus with some improvement Out patient HD arrangements will be needed. Plan for AVF placement Tuesday. Tolerated HD Tuesday. Plan next HD Tuesday Permanent Comment: Last Edited By: Lluvia Landeros on May 04, 2017 11:14 (2) Diastolic CHF ICD Codes: I50.30 - Unspecified diastolic (congestive) heart failure Status: Acute Plan: Lasix BID (3) Monoclonal gammopathy ICD Codes: D47.2 - Monoclonal gammopathy Status: Acute (4) Prostate enlargement ICD Codes: N40.0 - Benign prostatic hyperplasia without lower urinary tract symptoms Status: Chronic (5) Hyperkalemia ICD Codes: E87.5 - Hyperkalemia Status: Acute Plan: Resolved (6) Metabolic acidosis ICD Codes: E87.2 - Acidosis Status: Chronic Plan: Resolved (7) Anemia ICD Codes: D64.9 - Anemia, unspecified Status: Chronic Plan: Epogen with dialysis Plan Doyle Lora MD May 15, 2017 17:56
[2017-05-15] MEDS: TAMSULOSIN HCL 0.4 MG CAP PO SCH (21:56)
[2017-05-15] MEDS: ATORVASTATIN 80 MG TAB PO SCH (21:56)
[2017-05-15] MEDS: MIRTAZAPINE 15 MG TAB PO SCH (21:57)
[2017-05-15] MEDS ORDERED: CHLORHEXIDINE GLUCONATE 2 % 1 PACK (2 CLOTHS) TOPICAL PRN (22:00)
[2017-05-15] MEDS ORDERED: METOPROLOL TARTRATE 25 MG TAB PO PRN (22:00)
[2017-05-15] MEDS ORDERED: LACTATED RINGER'S 1000 ML IV PRN (22:00)
[2017-05-15] MEDS ORDERED: POVIDONE IODINE 5% (ANTISEPSIS KIT) 4 APPLICATIONS EACH NARE PRN (22:00)
[2017-05-15] MEDS ORDERED: SODIUM CHLORID 0.9% 500 ML IV PRN (22:00)
[2017-05-15] MEDS: SENNOSIDES 8.6 MG TAB PO PRN (22:14)
[2017-05-16] VITALS (10 sets, daily range): BP systolic 108–137; BP diastolic 57–72; PULSE 65–88; RESP 17–20; TEMP 97.8–99; O2SAT 95–98
[2017-05-16] MEDS: hydrOXYzine HCL 25 MG TAB PO PRN ×3 (00:14→21:25)
[2017-05-16] MEDS: oxyCODONE/ACETAMINOPHEN 7.5 MG/325 MG TAB PO PRN ×5 (02:03→21:25)
[2017-05-16] MEDS: CYCLOBENZAPRINE HCL 10 MG TAB PO PRN ×2 (02:03→21:29)
--- NOTE | 2017-05-16 07:32 | PD.VS.PN ---
Pre-operative Note Pre-operative diagnosis: ESRD, need for HD access Planned procedure: L brachiobasilic AVF (1st stage) Interval History: Pt has been feeling well and teetee HD TTS via R chest catheter. No interval changes that would preclude OR. Labs: Laboratory Results Test 05/01/17 12:44 05/12/17 06:40 Prothromb Time International Ratio 0.9 RATIO Anion Gap 9 MEQ/L (5-15) Blood Urea Nitrogen 25 MG/DL (7-18) Creatinine 5.44 MG/DL (0.60-1.30) Random Glucose 100 MG/DL (74-106) Calcium Level 8.6 MG/DL (8.5-10.1) Sodium Level 142 MEQ/L (136-145) Potassium Level 4.0 MEQ/L (3.5-5.1) Chloride Level 105 MEQ/L (98-107) Carbon Dioxide Level 27.7 MEQ/L (21.0-32.0) Hematocrit 25.0 % (39.0-51.0) Hemoglobin 8.4 GM/DL (13.0-17.0) Mean Corpuscular Hemoglobin 32.2 PG (27.0-34.0) Mean Corpuscular Hemoglobin Concent 33.8 % (32.0-36.0) Mean Corpuscular Volume 95.4 FL (80.0-100.0) Mean Platelet Volume 8.3 FL (7.0-11.0) Platelet Count 292 TH/MM3 (150-450) Red Blood Count 2.62 MIL/MM3 (4.50-5.90) Red Cell Distribution Width 16.3 % (11.6-17.2) White Blood Count 9.4 TH/MM3 (4.0-11.0) Blood: none needed Imaging: Last Impressions Chest X-Ray 05/09/17 0000 Signed Impressions: Service Date/Time: Tuesday, May 09, 2017 11:58 - CONCLUSION: 1. No acute findings. Minimal basilar atelectasis. Todd Clements MD Upper Extremity Ultrasound 05/07/17 0000 Signed Impressions: Service Date/Time: Sunday, May 07, 2017 20:50 - CONCLUSION: 1. Positive for deep venous thrombosis in the right subclavian vein around the port. No other DVT noted. Todd Clements MD Catheter Placement X-Ray 05/06/17 0000 Signed Impressions: Service Date/Time: Saturday, May 06, 2017 11:55 - CONCLUSION: Uncomplicated PermaCath placement as above. Jaylon Scott Jr., MD Abdomen/Pelvis CT 05/01/17 0000 Signed Impressions: Service Date/Time: Monday, May 01, 2017 13:15 - CONCLUSION: Trace free fluid in the abdomen. Cardiomegaly with trace left pleural effusion No inflammatory changes Garry Mccloud MD FACR Orders: NPO VANC 1g IV OCTOR Post-operative destination: PACU Operative site marked: Yes Consent: Informed consent has been obtained from Denilson Stiles. I have explained the procedure in detail and discussed the risks, benefits, and potential complications. All questions have been answered. Rick Morgan MD May 16, 2017 07:32
[2017-05-16] MEDS: PANTOPRAZOLE SOD 40 MG DELAYED RELEASE TAB PO SCH ×2 (09:00→21:25)
[2017-05-16] MEDS: CALCITRIOL 0.25 MCG CAP PO SCH (09:00)
[2017-05-16] MEDS: hydrALAZINE HCL 100 MG TAB PO SCH ×3 (09:00→17:36)
[2017-05-16] MEDS: FERROUS SULFATE 325 MG (65 MG ELEMENTAL IRON) TAB PO SCH ×2 (09:00→21:25)
[2017-05-16] MEDS: CLOTRIMAZOLE 1% CREAM 15 GM TOPICAL SCH ×2 (09:00→21:00)
[2017-05-16] MEDS: CALCIUM ACETATE 667 MG CAP PO SCH ×3 (09:00→17:36)
[2017-05-16] MEDS: amLODIPine BESYLATE 5 MG TAB PO SCH (09:00)
[2017-05-16] MEDS: CARVEDILOL 12.5 MG TAB PO SCH ×2 (09:00→21:29)
[2017-05-16] MEDS: DOCUSATE SODIUM 50 MG/SENNA 8.6 MG TAB PO SCH (09:00)
[2017-05-16] MEDS: GABAPENTIN 300 MG CAP PO SCH (09:00)
[2017-05-16] MEDS: FUROSEMIDE 40 MG/4 ML VIAL IV PUSH SCH (09:00)
[2017-05-16] MEDS: SODIUM CHLORIDE 0.9% FLUSH 10 ML FLUSH IV FLUSH SCH ×2 (09:00→21:29)
[2017-05-16 09:11] LABS: BASOPHIL # 0.1 TH/MM3 (0-0.2); BASOPHIL % 0.8 % (0.0-2.0); EOSINOPHIL # 0.7 TH/MM3 (0-0.4); EOSINOPHIL % 6.2 % (0.0-4.0); HEMATOCRIT 23.8 % (39.0-51.0); HEMOGLOBIN 8.1 GM/DL (13.0-17.0); MEAN CELL VOLUME 95.1 FL (80.0-100.0); MEAN CORPUSCULAR HEMOGLOBIN 32.4 PG (27.0-34.0); MEAN PLATELET VOLUME 7.5 FL (7.0-11.0); MONO % 8.8 % (0.0-8.0); MONOCYTE # 0.9 TH/MM3 (0-0.9); NEUT % 56.2 % (16.0-70.0); PLATELET COUNT 352 TH/MM3 (150-450); RED CELL DISTRIBUTION WIDTH 15.8 % (11.6-17.2); WHITE BLOOD COUNT 10.7 TH/MM3 (4.0-11.0)
[2017-05-16 09:33] LABS: BICARBONATE 27.3 MEQ/L (21.0-32.0); CALCIUM 8.9 MG/DL (8.5-10.1); CREATININE 6.89 MG/DL (0.60-1.30)
[2017-05-16] MEDS ORDERED: THROMBIN (TOPICAL) 20,000 UNIT SPRAY KIT ONE (10:05)
[2017-05-16] MEDS ORDERED: ceFAZolin 2 GM PREMIX 0 ML ONE (10:05)
[2017-05-16] MEDS ORDERED: PROTAMINE SULFATE 50 MG/5 ML VIAL ONE (10:05)
[2017-05-16] MEDS ORDERED: HEPARIN SODIUM - IV 10,000 UNITS/10 ML VIAL ONE (10:05)
[2017-05-16] MEDS ORDERED: HEPARIN-NS/PF INJ 500 ML ONE (10:05)
[2017-05-16] MEDS ORDERED: fentaNYL CITRATE 250 MCG/5 ML AMP ONE (10:07)
[2017-05-16] MEDS ORDERED: BUPIVACAINE HCL PF 0.5% 10 ML VIAL ONE (10:09)
--- NOTE | 2017-05-16 11:38 | HHI.PR ---
cc: Rick Morgan MD; Matt Davidson MD Immediate Post Op Note Procedure Date: May 16, 2017 Pre Op Diagnosis: ESRD, need for HD access Post Op Diagnosis: ESRD, need for HD access Surgeon: Rick Morgan Insulation Professional(s): Rick Fields Procedure: L brachiobasilic AVF (1st stage) Findings: 3mm vein, 5mm artery Complications: none Specimen(s) removed: none Estimated blood loss: 10mL Anesthesia: LMA Drains: None Fluids: 750mL IVF Patient to: PACU Patient Condition: Good Date/Time of Procedure: SEE SURGICAL CARE RECORD Rick Morgan MD May 16, 2017 11:38
[2017-05-16] MEDS ORDERED: MORPHINE SULFATE 2 MG/ML INJ IV PRN (11:45)
[2017-05-16] MEDS ORDERED: DO NOT ADM ANY ANTICOAGULANT DRUGS PRN (11:51)
[2017-05-16] MEDS ORDERED: ONDANSETRON HCL 4 MG/2 ML VIAL IV ONE (12:00)
[2017-05-16] MEDS ORDERED: LIDOCAINE HCL 1% PF 5 ML SYRINGE OTHER ONE (12:00)
[2017-05-16] MEDS ORDERED: PROPOFOL 200 MG/20 ML AMP IV ONE (12:00)
[2017-05-16] MEDS ORDERED: PHENYLEPH/NS 1000 MCG/10 ML SYR IV ONE (12:00)
[2017-05-16] MEDS ORDERED: ePHEDrine/NS 25 MG/5 ML SYRINGE IV ONE (12:00)
[2017-05-16] MEDS ORDERED: SODIUM CHLORID 0.9% 500 ML INJ 500 ML IV ONE (12:00)
[2017-05-16] MEDS ORDERED: VANCOMYCIN HCL 1000 MG VIAL ONE (12:17)
--- NOTE | 2017-05-16 13:31 | HHI.PR ---
Subjective Remarks Follow-up for dialysis and aVF Patient seen postop he was very upset about his diet. Patient stated that he had a problem with his diet early on during this hospitalization and that he was told by prior providers that he can be on a regular diet. Patient stated he does not do well with the other diet and was malnourished. Otherwise he has no other complaints. Objective Vitals Vital Signs Date Time Temp Pulse Resp B/P (MAP) Pulse Ox O2 Delivery O2 Flow Rate FiO2 05/16/17 11:55 97.1 69 20 125/69 (87) 100 Nasal Cannula 3 05/16/17 08:00 78 05/16/17 08:00 98.2 70 20 121/61 (81) 98 05/16/17 07:15 Room Air 05/16/17 04:02 65 05/16/17 04:00 98.3 72 17 120/57 (78) 97 05/16/17 00:06 77 05/16/17 00:00 99.0 78 19 108/66 (80) 96 05/15/17 20:45 Room Air 05/15/17 20:04 85 05/15/17 20:00 98.6 82 17 121/83 (96) 96 05/15/17 18:06 Room Air 05/15/17 16:00 71 05/15/17 16:00 98.4 67 20 118/55 (76) 96 05/15/17 13:59 Room Air I/O 05/15/17 05/15/17 05/15/17 05/16/17 05/16/17 05/16/17 07:00 15:00 23:00 07:00 15:00 23:00 Intake Total 480 ml 720 ml 540 ml 750 ml Output Total 600 ml 800 ml 10 ml Balance -120 ml 720 ml -260 ml 740 ml Intake Oral 480 ml 720 ml 540 ml Other 750 ml Output Urine Total 600 ml 800 ml Estimated Blood Loss 10 ml # Voids 3 # Bowel Movements 0 0 Result Diagram: 05/16/17 0850 05/16/17 0850 Objective Remarks GENERAL: in NAD SKIN: Left aVF in place. Wound dry clear and intact. CARDIOVASCULAR: Regular rate and rhythm. Positive for heart murmur. Chest pain reproducible with palpation of his anterior chest. RESPIRATORY: Breath sounds equal bilaterally. No accessory muscle use. GASTROINTESTINAL: Abdomen soft, non-tender, nondistended. MUSCULOSKELETAL: No cyanosis, or edema. BACK: Nontender without obvious deformity. No CVA tenderness. Procedures 05/06/17 Right IJ permacath placement Medications and IVs Current Medications Morphine Sulfate (Morphine Inj) 4 mg ONCE ONCE IV PUSH Last administered on 13:25; Start 05/01/17 at 13:00; Stop 05/01/17 at 13:01; Status DC Calcium Gluconate 1 gm/Dextrose 110 ml @ 110 mls/hr ONCE ONCE IV Last administered on 05/01/17 16:34; Start 05/01/17 at 15:00; Stop 05/01/17 at 15:59; Status DC Pantoprazole Sodium (Protonix Inj) 40 mg ONCE ONCE IV PUSH Last administered on 05/01/17 16:34; Start 05/01/17 at 16:15; Stop 05/01/17 at 16:16; Status DC Sodium Chloride (NS Flush) 2 ml UNSCH PRN IV FLUSH FLUSH AFTER USING IV ACCESS ; Start 05/01/17 at 16:45 Sodium Chloride (NS Flush) 2 ml BID IV FLUSH Last administered on 05/15/17at 21: 58; Start 05/01/17 at 21:00 Acetaminophen (Tylenol) 650 mg Q4H PRN PO TEMP > 100.4 or Pain 1-2 Last administered on 05/10/17at 17:30; Start 05/01/17 at 16:45 Ondansetron HCl (Zofran Inj) 4 mg Q6H PRN IVP NAUSEA OR VOMITING; Start at 16:45 Naloxone HCl (Narcan Inj) 0.4 mg UNSCH PRN IV PUSH SEE LABEL COMMENTS; Start at 16:45 Magnesium Hydroxide (Milk Of Magnesia Liq) 30 ml Q12H PRN PO Mild constipation Last administered on 05/15/17 04:37; Start 05/01/17 at 16:45 Sennosides (Senokot) 17.2 mg Q12H PRN PO Moderate constipation Last administered on 05/15/17 22:14; Start 05/01/17 at 16:45 Bisacodyl (Dulcolax Supp) 10 mg DAILY PRN RECTAL SEVERE CONSITIPATION; Start at 16:45 Morphine Sulfate (Morphine Inj) 4 mg ONCE ONCE IV PUSH Last administered on 05/01/17at 16:57; Start 05/01/17 at 17:00; Stop 05/01/17 at 17:01; Status DC Diphenhydramine HCl (Benadryl) 25 mg ONCE ONCE PO Last administered on at 20:30; Start 05/01/17 at 20:30; Stop 05/01/17 at 20:34; Status DC Influenza Virus Vaccine (Flu (Quadrivalent) Vaccine Inj) 0.5 ml ONCE ONCE IM Last administered on 05/02/17at 09:26; Start 05/02/17 at 10:00; Stop 05/02/17 at 10: 01; Status DC Amlodipine Besylate (Norvasc) 10 mg DAILY PO ; Start 05/02/17 at 09:00; Stop 05/02 at 14:12; Status DC Amlodipine Besylate (Norvasc) 10 mg DAILY PO Last administered on 05/15/17at 07: 55; Start 05/02/17 at 09:00 Aspirin (Ecotrin Ec) 81 mg DAILY PO ; Start 05/02/17 at 09:00; Stop 05/02/17 at 09 :00; Status DC Atorvastatin Calcium (Lipitor) 80 mg HS PO Last administered on 05/15/17at 21:56 ; Start 05/01/17 at 23:00 Bumetanide (Bumetanide) 1 mg DAILY PO Last administered on 05/02/17at 08:01; Start 05/02/17 at 09:00; Stop 05/02/17 at 14:18; Status DC Carvedilol (Coreg) 25 mg BID PO Last administered on 05/15/17at 21:56; Start 05/01/17 at 23:00 Clopidogrel Bisulfate (Plavix) 75 mg DAILY PO Last administered on 05/02/17at 08: 01; Start 05/02/17 at 09:00; Stop 05/02/17 at 09:18; Status DC Gabapentin (Neurontin) 600 mg TID PO Last administered on 05/03/17at 11:55; Start 05/02/17 at 09:00; Stop 05/03/17 at 16:04; Status DC Hydralazine HCl (Apresoline) 100 mg TID PO Last administered on 05/16/17 12:49 ; Start 05/02/17 at 09:00 Hydrochlorothiazide (Microzide) 12.5 mg DAILY PO Last administered on 05/02/17at 08:00; Start 05/02/17 at 09:00; Stop 05/02/17 at 15:42; Status DC Acetaminophen/ Hydrocodone Bitart ([place] 10-325 Mg) 1 tab Q4H PRN PO PAIN Last administered on 05/04/17at 09:43; Start 05/01/17 at 23:00; Stop 05/04/17 at 13:38; Status DC Mirtazapine (Remeron) 30 mg HS PO Last administered on 05/15/17 21:57; Start 05/01/17 at 23:00 Pantoprazole Sodium (Protonix) 40 mg DAILY PO ; Start 05/02/17 at 09:00; Status Cancel Tamsulosin HCl (Flomax) 0.4 mg HS PO Last administered on 05/15/17 21:56; Start 05/01/17 at 23:00 Pantoprazole Sodium 80 mg/ Sodium Chloride 100 ml @ 10 mls/hr CONTINUOUS IV Last administered on 05/02/17 01:07; Start 05/02/17 at 01:00; Stop 05/02/17 at 09: 20; Status DC Sodium Polystyrene Sulfonate (Kayexalate Liq) 15 gm QID PO Last administered on 05/02/17 21:36; Start 05/02/17 at 09:00; Stop 05/02/17 at 21:01; Status DC Albuterol Sulfate (Albuterol Concentrated Neb) 10 mg ONCE ONCE INH Last administered on 05/02/17 09:32; Start 05/02/17 at 09:00; Stop 05/02/17 at 09:01; Status DC Insulin Human Regular 10 units/ Dextrose 500.1 ml @ 500 mls/hr Q1H1M IV Last administered on 05/02/17 09:40; Start 05/02/17 at 09:00; Stop 05/03/17 at 10:01; Status DC Pantoprazole Sodium (Protonix) 40 mg Q12HR PO Last administered on 05/15/17 21 :57; Start 05/02/17 at 10:00 Sodium Chloride 250 ml @ 15 mls/hr ONCE ONCE IV Last administered on at 16:03; Start 05/02/17 at 09:30; Stop 05/03/17 at 02:09; Status DC Acetaminophen (Tylenol) 650 mg Q4H PRN PO SEE LABEL COMMENTS Last administered on 05/02/17at 15:05; Start 05/02/17 at 09:30; Stop 05/02/17 at 23:59; Status DC Diphenhydramine HCl (Benadryl) 25 mg Q4H PRN PO SEE LABEL COMMENTS Last administered on 05/02/17at 15:05; Start 05/02/17 at 09:30; Stop 05/02/17 at 23:59; Status DC Sodium Bicarbonate (Sodium Bicarbonate) 650 mg Q8HR PO Last administered on 01/15at 04:38; Start 05/02/17 at 15:15; Stop 05/08/17 at 10:29; Status DC Furosemide (Lasix Inj) 40 mg BID@09,18 IV PUSH Last administered on 05/15/17at 17:47; Start 05/02/17 at 18:00 Metoprolol Tartrate (Lopressor) 25 mg STK-MED ONCE .ROUTE Last administered on 05/03/17at 08:35; Start 05/03/17 at 08:35; Stop 05/03/17 at 08:36; Status DC Lactated Ringer's 1,000 ml @ 30 mls/hr Q24H PRN IV SEE LABEL COMMENTS; Start at 10:00; Stop 05/06/17 at 09:59; Status DC Sodium Chloride 500 ml @ 30 mls/hr [id number] PRN IV SEE LABEL COMMENTS; Start 05/03/17 at 10:00; Stop 05/06/17 at 09:59; Status DC Metoprolol Tartrate (Lopressor) 25 mg DIRECTOR QUALITY ASSURANCE PRN PO SEE LABEL COMMENTS; Start 05/03/17 at 10:00; Stop 05/06/17 at 09:59; Status DC Povidone Iodine (Betadine 5% Antisepsis Kit) 1 applic DIRECTOR QUALITY ASSURANCE PRN EACH NARE SEE LABEL COMMENTS; Start 05/03/17 at 10:00; Stop 05/06/17 at 09:59; Status DC Chlorhexidine Gluconate (Chlorhexidine 2% Cloth) 3 pack DIRECTOR QUALITY ASSURANCE PRN TOPICAL SEE LABEL COMMENTS; Start 05/03/17 at 10:00; Stop 05/06/17 at 09:59; Status DC Insulin Human Regular (NovoLIN R INJ) See Protocol Table ... DIRECTOR QUALITY ASSURANCE PRN SQ SEE PROTOCOL TABLE; Start 05/03/17 at 10:00; Stop 05/06/17 at 09:59; Status DC Gabapentin (Neurontin) 300 mg DAILY PO Last administered on 05/15/17at 07:54; Start 05/04/17 at 09:00 Propofol (Diprivan 200 Mg/20 ml Inj) 200 mg STK-MED ONCE IV ; Start 05/03/17 at 12:00; Stop 05/04/17 at 10:40; Status DC Lidocaine HCl (Xylocaine-Mpf 1% Inj) 5 ml STK-MED ONCE OTHER ; Start 05/03/17 at 12:00; Stop 05/04/17 at 10:40; Status DC Phenylephrine HCl (Neosynephrine/ NS 1000 Mcg/10ml Syr) 1,000 mcg STK-MED ONCE IV ; Start 05/03/17 at 12:00; Stop 05/04/17 at 10:40; Status DC Calcium Acetate (Phoslo) 667 mg TID PO Last administered on 05/16/17at 12:49; Start 05/04/17 at 13:00 Oxycodone/ Acetaminophen (Percocet 7.5-325 Mg) 1 tab Q4H PRN PO PAIN SCALE 3 TO 10 Last administered on 05/09/17at 05:37; Start 05/04/17 at 13:45; Stop at 08:40; Status DC Vancomycin HCl 1000 mg/Sodium Chloride 250 ml @ 250 mls/hr DIRECTOR QUALITY ASSURANCE IV Last administered on 05/06/17at 11:15; Start 05/05/17 at 17:15; Stop 05/09/17 at 17:14; Status DC Cefazolin Sodium/ Dextrose 50 ml @ 100 mls/hr DIRECTOR QUALITY ASSURANCE IV ; Start 05/05/17 at 17 :15; Stop 05/09/17 at 17:14; Status DC Sodium Chloride 1,000 ml @ 0 mls/hr Q0M PRN OTHER For Prime & Rinse Back; Start 05/06/17 at 09:23 Heparin Sodium (Porcine) (Heparin Inj) 8,000 units UNSCH PRN IV FLUSH WITH DIALYSIS; Start 05/06/17 at 09:30 Sodium Chloride 1,000 ml @ 200 mls/hr Q5H PRN IV WITH DIALYSIS; Start 05/06/17 at 09:23 Sodium Chloride 1,000 ml @ 0 mls/hr Q0M PRN OTHER WITH DIALYSIS; Start 05/06/17 at 09:23 Mannitol (Mannitol Inj) 12.5 gm UNSCH PRN IV WITH DIALYSIS; Start 05/06/17 at 09 :30 Albumin Human 100 ml @ 60 mls/hr UNSCH PRN IV WITH DIALYSIS; Start 05/06/17 at 09:30 Sodium Chloride (NS Flush) 5 ml UNSCH PRN IV FLUSH WITH DIALYSIS; Start at 09:30 Heparin Sodium (Porcine) (Heparin Inj) UNSCH PRN .XX WITH DIALYSIS Last administered on 05/14/17at 09:32; Start 05/06/17 at 09:30 Gentamicin Sulfate (Gentamicin Inj) 20 mg UNSCH PRN OTHER WITH DIALYSIS Last administered on 05/14/17at 09:33; Start 05/06/17 at 09:30 Ondansetron HCl (Zofran Inj) 4 mg UNSCH PRN IV PUSH WITH DIALYSIS; Start at 09:30 Acetaminophen (Tylenol) 650 mg UNSCH PRN PO for headach, pain, temp > 101F; Start 05/06/17 at 09:30 Diphenhydramine HCl (Benadryl) 25 mg UNSCH PRN PO for hives/itching/anaphylaxis ; Start 05/06/17 at 09:30 Nitroglycerin (Nitrostat Sl) 0.4 mg UNSCH PRN SL CHEST PAIN; Start 05/06/17 at 09:30 Clonidine (Catapres) 0.1 mg UNSCH PRN PO for BP > 180/100 X 2 readings; Start 05/06/17 at 09:30 Epoetin Salvatore (Epogen Inj) 10,000 units UNSCH PRN IV PUSH WITH DIALYSIS Last administered on 05/14/17at 09:33; Start 05/06/17 at 09:30 Gelatin (Gelfoam 12 Mm/7 Mm Top) 1 foam UNSCH PRN TOP SEE LABEL COMMENTS; Start 05/06/17 at 09:30 Hydroxyzine HCl (Atarax) 25 mg Q6H PRN PO Itching Last administered on at 06:35; Start 05/06/17 at 09:30 Calcitriol (Rocaltrol) 0.25 mcg DAILY PO Last administered on 05/15/17at 07:54; Start 05/07/17 at 09:00 Fentanyl Citrate (fentaNYL INJ) 100 mcg STK-MED ONCE .ROUTE ; Start 05/06/17 at 12:20; Stop 05/06/17 at 12:21; Status DC Fentanyl Citrate (fentaNYL INJ) 100 mcg STK-MED ONCE .ROUTE ; Start 05/06/17 at 12:20; Stop 05/06/17 at 12:21; Status DC Midazolam HCl (Versed Inj) 4 mg STK-MED ONCE .ROUTE ; Start 05/06/17 at 12:20; Stop 05/06/17 at 12:21; Status DC Heparin Sodium (Porcine) (*HEPARIN INJ Periprocedural ONLY) 10,000 units STK- MED ONCE .ROUTE Last administered on 05/06/17at 12:55; Start 05/06/17 at 12:23; Stop 05/06/17 at 12:24; Status DC Lidocaine/ Epinephrine (Xylocaine-Epi 1%-1:100,000 Inj) 30 ml STK-MED ONCE .ROUTE Last administered on 05/06/17at 12:50; Start 05/06/17 at 12:23; Stop at 12:24; Status DC Sodium Chloride (NS Flush) UNSCH PRN IV FLUSH SEE PROTOCOL; Start 05/06/17 at 13:15 Heparin Sodium (Porcine) (Heparin Inj) UNSCH PRN IV FLUSH SEE PROTOCOL; Start 05/06/17 at 13:15 Diphenhydramine HCl (Benadryl 2% Cream) 1 applic TID PRN TOPICAL ITCHING Last administered on 05/14/17at 17:41; Start 05/07/17 at 10:45 Sodium Chloride 250 ml @ 15 mls/hr ONCE ONCE IV Last administered on at 15:58; Start 05/08/17 at 09:00; Stop 05/09/17 at 01:39; Status DC Ferrous Sulfate (Ferrous Sulfate) 325 mg BID PO Last administered on 05/15/17at 21:57; Start 05/08/17 at 11:15 Senna/Docusate Sodium ([place]-Colace) 1 tab DAILY PO Last administered on at 07:54; Start 05/08/17 at 11:15 Oxycodone/ Acetaminophen (Percocet 7.5-325 Mg) 1 tab Q4H PRN PO PAIN SCALE 7 TO 10 Last administered on 05/16/17at 06:36; Start 05/09/17 at 08:45 Oxycodone/ Acetaminophen (Percocet 5-325 Mg) 1 tab Q4H PRN PO PAIN SCALE 3 TO 6; Start 05/09/17 at 08:45 Clotrimazole (Lotrimin 1% Cream) 1 applic Q12HR TOPICAL Last administered on at 21:58; Start 05/10/17 at 14:00 Multi-Ingredient Ointment (Eucerin Cream) 1 applic Q6H PRN TOPICAL dry skin; Start 05/11/17 at 10:15; Stop 05/14/17 at 17:13; Status DC Cyclobenzaprine HCl (Flexeril) 5 mg Q8H PRN PO PAIN SCALE 1 TO 6 Last administered on 05/16/17at 02:03; Start 05/13/17 at 16:45 Multi-Ingredient Ointment (Eucerin Cream) 1 applic Q6H PRN TOPICAL dry skin Last administered on 05/14/17at 17:41; Start 05/14/17 at 17:15 Menthol/Methyl Salicylate (Oleg [place]arrow Oint) 1 applic UNSCH PRN TOPICAL muscle aches and joint pain Last administered on 05/15/17at 13:02; Start 05/15/17 at 12: 15 Lactated Ringer's 1,000 ml @ 30 mls/hr Q24H PRN IV SEE LABEL COMMENTS; Start at 22:00; Stop 05/18/17 at 21:59 Sodium Chloride 500 ml @ 30 mls/hr [id number] PRN IV SEE LABEL COMMENTS; Start at 22:00; Stop 05/18/17 at 21:59 Metoprolol Tartrate (Lopressor) 25 mg DIRECTOR QUALITY ASSURANCE PRN PO SEE LABEL COMMENTS; Start 05/15/17 at 22:00; Stop 05/18/17 at 21:59 Povidone Iodine (Betadine 5% Antisepsis Kit) 1 applic DIRECTOR QUALITY ASSURANCE PRN EACH NARE SEE LABEL COMMENTS; Start 05/15/17 at 22:00; Stop 05/18/17 at 21:59 Chlorhexidine Gluconate (Chlorhexidine 2% Cloth) 3 pack DIRECTOR QUALITY ASSURANCE PRN TOPICAL SEE LABEL COMMENTS; Start 05/15/17 at 22:00; Stop 05/18/17 at 21:59 Protamine Sulfate (Protamine Sulfate Inj) 50 mg STK-MED ONCE .ROUTE ; Start at 10:05; Stop 05/16/17 at 10:06; Status DC Heparin Sodium (Porcine) (Heparin Inj) 10,000 units STK-MED ONCE .ROUTE ; Start 05/16/17 at 10:05; Stop 05/16/17 at 10:06; Status DC Thrombin (Thrombin Top [place]) 20,000 units STK-MED ONCE .ROUTE ; Start 05/16/17 at 10:05; Stop 05/16/17 at 10:06; Status DC Heparin Sodium/ Sodium Chloride 500 ml @ As Directed STK-MED ONCE .ROUTE Last administered on 05/16/17at 10:05; Start 05/16/17 at 10:05; Stop 05/16/17 at 10:06 ; Status DC Cefazolin Sodium/ Dextrose 50 ml @ As Directed STK-MED ONCE .ROUTE ; Start 05/16 at 10:05; Stop 05/16/17 at 10:06; Status DC Fentanyl Citrate (fentaNYL INJ) 250 mcg STK-MED ONCE .ROUTE ; Start 05/16/17 at 10:07; Stop 05/16/17 at 10:08; Status DC Bupivacaine HCl (Marcaine Pf 0.5% Inj) 20 ml STK-MED ONCE .ROUTE Last administered on 05/16/17at 10:09; Start 05/16/17 at 10:09; Stop 05/16/17 at 10:10 ; Status DC Oxycodone HCl (Roxicodone) 5 mg Q6H PRN PO PAIN SCALE 1 TO 6; Start 05/16/17 at 11:45 Morphine Sulfate (Morphine Inj) 2 mg Q2H PRN IV PAIN, SEVERE 7-10 ON SCALE; Start 05/16/17 at 11:45 Vancomycin HCl (Vancomycin Inj) 1,000 mg STK-MED ONCE .ROUTE Last administered on 05/16/17at 10:56; Start 05/16/17 at 12:17; Stop 05/16/17 at 12:18; Status DC A/P Problem List: (1) GI bleed ICD Code: K92.2 - Gastrointestinal hemorrhage, unspecified Status: Acute (2) CKD (chronic kidney disease) stage 5, GFR less than 15 ml/min ICD Code: N18.5 - Chronic kidney disease, stage 5 Status: Chronic Permanent Comment: Last Edited By: Lluvia Landeros on May 04, 2017 11:14 (3) Chest pain ICD Code: R07.9 - Chest pain, unspecified Status: Acute (4) Hypertension ICD Code: I10 - Essential (primary) hypertension Status: Chronic Assessment and Plan This is a 57 y/o Acute anemia secondary to acute blood loss, renal failure: Monitor labs. - No sign of active bleeding. Appreciate GI recommendations. Status post EGD. Continue Protonix. Status post transfusion of 1 unit PRBCs. Hemoglobin is stable. Mildly elevated troponin: Likely secondary to renal failure. Appreciate cardiology recommendations. Atypical chest pain -This is reproducible. Most likely musculoskeletal. Can give Tylenol as needed for pain. Need to avoid NSAIDs due to acute renal failure. Heart murmur: -Echocardiogram shows moderate aortic valve stenosis. Appreciate cardiothoracic surgery recommendations. Repeat echo in 6 months. Hyperkalemia: Improved. Chronic kidney disease stage V - Appreciate nephrology recommendations. Permacath placed. Continue hemodialysis per nephrology (Tue/Thjose/Sat). -Per assistant case manager patient had a biopsy on 03/10/2016 showed nodular glomerular sclerosis with a membranoproliferative pattern, severe interstitial fibrosis, severe arteriosclerosis, severe arteriolar hyalinosis, but without immune deposits or myeloma casts. -Continue Epogen 10,000 units with dialysis and PhosLo and Calcitrol -Vascular surgery following status post aVF on 05/16/2017. Hypertension - Continue amlodipine, Bumex, carvedilol, HCTZ, hydralazine. Hyperlipidemia -Continue statin. Rash/pruritis: Improving. Atarax, Benadryl cream as needed. Add clotrimazole cream. Emollient ordered for pruritus Fever on 05/10/2017 - No obvious source of infection. Chest x-ray shows no acute findings. UA does not suggest UTI he is asymptomatic. Pending blood cultures. Patient has not had any fever since then. Continue to monitor clinically off of antibiotics. Muscle spasms/stiffness -Patient on Flexeril and BenGay. DVT prophylaxis: SCDs. Discharge Planning Still waiting for a chair for dialysis. Problem Qualifiers (1) GI bleed: Qualified Codes: K92.2 - Gastrointestinal hemorrhage, unspecified (2) Chest pain: Qualified Codes: R07.9 - Chest pain, unspecified Wandy Hernandez MD May 16, 2017 13:31
--- NOTE | 2017-05-16 15:15 | HHI.NPPN ---
Subjective General Problems: Anemia Renal Failure: End Stage Renal Disease History of Present Illness 57-year-old male with a past medical history of hypertension, history of chronic kidney disease, chronic obstructive pulmonary disease, ischemic heart disease, benign prostatic hypertrophy, congestive heart failure, came to the hospital with complaint of chest pain and generalized weakness. I was called to see the patient because of elevated BUN and creatinine. Additional Remarks no acute complaints, s/p AVF today (Lluvia Landeros) Review of Systems General Constitutional: Fatigue (Lluvia Landeros) Respiratory Respiratory Remarks Mild SOB (Lluvia Landeros) Cardiovascular Cardiac Remarks Denies CP (Lluvia Landeros) Gastrointestinal GI Remarks No Abdominal pain (Lluvia Landeros) Objective Data Data 05/16/17 05/17/17 19:00 07:00 Intake Total 750 ml Output Total 10 ml Balance 740 ml Other 750 ml Estimated Blood Loss 10 ml Vital Signs Date Time Temp Pulse Resp B/P (MAP) Pulse Ox O2 Delivery O2 Flow Rate FiO2 05/16/17 12:00 97.8 78 20 137/72 (93) 98 05/16/17 11:55 97.1 69 20 125/69 (87) 100 Nasal Cannula 3 05/16/17 08:00 78 05/16/17 08:00 98.2 70 20 121/61 (81) 98 05/16/17 07:15 Room Air 05/16/17 04:02 65 05/16/17 04:00 98.3 72 17 120/57 (78) 97 05/16/17 00:06 77 05/16/17 00:00 99.0 78 19 108/66 (80) 96 05/15/17 20:45 Room Air 05/15/17 20:04 85 05/15/17 20:00 98.6 82 17 121/83 (96) 96 05/15/17 18:06 Room Air 05/15/17 16:00 71 05/15/17 16:00 98.4 67 20 118/55 (76) 96 (Lluvia Landeros) -: 05/16/17 0850 05/16/17 0850 Tubes & Lines: Perma-Cath Tubes & Lines Comment right chest wall (Lluvia Landeros) Physical Exam General Appearance: No Acute Distress, Comfortable (Lluvia LanderosP) Eyes Eye Exam: Pupils Equal (Lluvia Landeros) Ears & Nose Ears & Nose Exam: Nasal Mucosa [place] (Lluvia LanderosP) Throat Throat Exam: Oral Mucosa [place] & Moist (Lluvia LanderosP) Neck Neck Exam: Neck Supple, Trachea Midline (Lluvia LanderosP) Pulmonary Resp Exam: Breath Sounds Equal, No Distress, Decreased Bases (Lluvia LanderosP) Cardiology CV Exam: Regular, Normal Sinus Rhythm (Lluvia LanderosP) Gastrointestinal/Abdomen GI Exam: Soft, Non-Tender, Bowel Sounds Present (Lluvia Landeros) Extremeties Extremities Exam: Trace Edema (Lluvia LanderosP) Neurologic Neuro Exam: Alert, Awake, Oriented (Lluvia Landeros) Psychiatric Psych Exam: Appropriate Responses (Lluvia Landeros) Assessment/Plan Assessment Summary: Anemia of CKD, Hypertension, CKD Stage V Problem List: (1) CKD (chronic kidney disease) stage 5, GFR less than 15 ml/min ICD Codes: N18.5 - Chronic kidney disease, stage 5 Status: Chronic Plan: Biopsy report from 03/10/16 showed 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 Patient has advance stage 4-5 chronic kidney disease and is now ESRD Current RIJ tunneled catheter S/P AVF left arm. Positive thrill and bruit. Plan Continue Epogen 10,000 units with dialysis. Continue PhosLo and Calcitrol Out patient HD arrangements will be needed. Dialysis planned for tomorrow Permanent Comment: Last Edited By: Lluvia Landeros on May 04, 2017 11:14 (2) Diastolic CHF ICD Codes: I50.30 - Unspecified diastolic (congestive) heart failure Status: Acute Plan: Lasix decreased to daily (3) Monoclonal gammopathy ICD Codes: D47.2 - Monoclonal gammopathy Status: Acute (4) Prostate enlargement ICD Codes: N40.0 - Benign prostatic hyperplasia without lower urinary tract symptoms Status: Chronic (5) Hyperkalemia ICD Codes: E87.5 - Hyperkalemia Status: Acute Plan: Resolved (6) Metabolic acidosis ICD Codes: E87.2 - Acidosis Status: Chronic Plan: Resolved (7) Anemia ICD Codes: D64.9 - Anemia, unspecified Status: Chronic Plan: Epogen with dialysis Plan (Lluvia Landeros) Problem List: (1) CKD (chronic kidney disease) stage 5, GFR less than 15 ml/min ICD Codes: N18.5 - Chronic kidney disease, stage 5 Status: Chronic Plan: Biopsy report from 03/10/16 showed 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 Patient has advance stage 4-5 chronic kidney disease and is now ESRD Current RIJ tunneled catheter S/P AVF left arm. Positive thrill and bruit. Plan Continue Epogen 10,000 units with dialysis. Continue PhosLo and Calcitrol Out patient HD arrangements will be needed. Dialysis planned for tomorrow. Patient seen and examined, agree with above. AVF done, good Bruit. Awaiting placement. Permanent Comment: Last Edited By: Lluvia Landeros on May 04, 2017 11:14 (2) Diastolic CHF ICD Codes: I50.30 - Unspecified diastolic (congestive) heart failure Status: Acute Plan: Lasix decreased to daily (3) Monoclonal gammopathy ICD Codes: D47.2 - Monoclonal gammopathy Status: Acute (4) Prostate enlargement ICD Codes: N40.0 - Benign prostatic hyperplasia without lower urinary tract symptoms Status: Chronic (5) Hyperkalemia ICD Codes: E87.5 - Hyperkalemia Status: Acute Plan: Resolved (6) Metabolic acidosis ICD Codes: E87.2 - Acidosis Status: Chronic Plan: Resolved (7) Anemia ICD Codes: D64.9 - Anemia, unspecified Status: Chronic Plan: Epogen with dialysis (Matt Davidson MD) Lluvia Landeros May 16, 2017 15:15 Matt Davidson MD May 16, 2017 19:10
[2017-05-16] MEDS: SENNOSIDES 8.6 MG TAB PO PRN (17:36)
[2017-05-16] MEDS: MAGNESIUM HYDROXIDE SUSP 30 ML CUP PO PRN (17:36)
[2017-05-16] MEDS: MIRTAZAPINE 15 MG TAB PO SCH (21:24)
[2017-05-16] MEDS: TAMSULOSIN HCL 0.4 MG CAP PO SCH (21:24)
[2017-05-16] MEDS: ATORVASTATIN 80 MG TAB PO SCH (21:25)
[2017-05-17] VITALS (7 sets, daily range): BP systolic 126–137; BP diastolic 63–83; PULSE 63–90; RESP 18–20; TEMP 98.7–98.8; O2SAT 95–98
--- NOTE | 2017-05-17 03:04 | MP ---
cc: Rick Morgan MD DATE OF OPERATION: 05/16/2017 PREOPERATIVE DIAGNOSIS: Endstage renal disease, need for dialysis access. POSTOPERATIVE DIAGNOSIS: Endstage renal disease, need for dialysis access. PROCEDURE: Left brachiobasilic arteriovenous fistula (first stage). ATTENDING SURGEON: Rick Morgan MD. ROSE GROWER SURGEON: Rick Fields MD. ANESTHESIA: General. INDICATIONS: Mr. Stiles is a gentleman who just started dialysis and preoperative imaging suggests he has an adequate left basilic vein. He was taken to the operating room for the first of a planned 2-stage procedure. DESCRIPTION OF PROCEDURE: Informed consent was obtained from the patient and he was taken to the operating room and placed supine on the operating table. An appropriate timeout was taken to ensure the patient's identity, operative side and planned procedure, the administration of a gram of vancomycin was initiated prior to skin incision and will be discontinued after a single preoperative dose. Vancomycin was chosen because of the patient's endstage renal disease. Everyone in the room agreed (00:46) and we proceeded. His left arm was prepped and draped and an incision was made over the distal aspect of the upper arm and carried down to the subcutaneous tissue with electrocautery. Basilic vein was identified and dissected free for several centimeters. Side branches were ligated with 3-0 silk. The vein was marked for orientation, clamped distally with a right angle and transected. A Jhon Bulldog clamp was placed on the proximal aspect. The brachial artery was identified in the medial aspect of the incision and dissected for several centimeters. The patient was systemically heparinized with 3000 units of IV heparin. Proximal and distal control of the brachial artery was attained with Profunda clamps and a longitudinal arteriotomy was made with an 11-blade and extended with Spencer scissors. The vein was cut to the appropriate length, spatulated and sewn end-to-side with running 5-0 Prolene suture. The (01:17) was flushed and found to be hemostatic. There was a thrill in the fistula and a nice Doppler signal in the wrist. The heparin was reversed with protamine and the wound was infiltrated with Marcaine and closed with 2-0 Polysorb, 3-0 Polysorb and 4-0 Monocryl. The sponge and needle counts were correct at the end of the case. I was present and scrubbed for the entire procedure. MD EVE Dodson/JANAK , 08:59 PM , 03:02 AM
[2017-05-17] MEDS: hydrALAZINE HCL 100 MG TAB PO SCH ×3 (08:35→16:55)
[2017-05-17] MEDS: FUROSEMIDE 40 MG/4 ML VIAL IV PUSH SCH (08:35)
[2017-05-17] MEDS: FERROUS SULFATE 325 MG (65 MG ELEMENTAL IRON) TAB PO SCH ×2 (08:35→21:26)
[2017-05-17] MEDS: DOCUSATE SODIUM 50 MG/SENNA 8.6 MG TAB PO SCH (08:35)
[2017-05-17] MEDS: amLODIPine BESYLATE 5 MG TAB PO SCH (08:35)
[2017-05-17] MEDS: GABAPENTIN 300 MG CAP PO SCH (08:35)
[2017-05-17] MEDS: SODIUM CHLORIDE 0.9% FLUSH 10 ML FLUSH IV FLUSH SCH ×2 (08:35→21:29)
[2017-05-17] MEDS: CARVEDILOL 12.5 MG TAB PO SCH ×2 (08:35→21:26)
[2017-05-17] MEDS: CLOTRIMAZOLE 1% CREAM 15 GM TOPICAL SCH ×2 (08:36→21:32)
[2017-05-17] MEDS: CALCIUM ACETATE 667 MG CAP PO SCH ×3 (08:36→16:55)
[2017-05-17] MEDS: CALCITRIOL 0.25 MCG CAP PO SCH (08:36)
[2017-05-17] MEDS: PANTOPRAZOLE SOD 40 MG DELAYED RELEASE TAB PO SCH ×2 (08:36→21:26)
[2017-05-17] MEDS: GENTAMICIN SULFATE 20 MG/2 ML VIAL OTHER PRN (11:45)
[2017-05-17] MEDS: EPOETIN ALFA 10,000 UNITS/ML VIAL IV PUSH PRN (11:45)
[2017-05-17] MEDS: HEPARIN SODIUM - IV 10,000 UNITS/10 ML VIAL PRN (11:45)
--- NOTE | 2017-05-17 12:12 | PD.VS.PN ---
Subjective POD #: 1 Procedure(s): L brachiobasilic AVF (1st stage) Subjective/Hospital Course Pt seen in HD Pt S/P L brachiobasilic AVF (1st stage) Pt w/o complaints of hand pain UE warm w/ motor intact + thrill palpated near L AVF Objective Vitals/I&O Date Time Temp Pulse Resp B/P (MAP) Pulse Ox O2 Delivery O2 Flow Rate FiO2 05/17/17 08:00 74 05/17/17 07:20 Room Air 05/17/17 00:34 Room Air 05/17/17 00:34 98.7 83 18 128/79 (95) 95 05/16/17 23:41 75 05/16/17 19:57 21 05/16/17 19:43 88 05/16/17 19:39 98.6 86 20 120/57 (78) 96 05/16/17 19:39 Room Air 05/16/17 16:00 77 05/16/17 16:00 98.3 78 20 128/65 (86) 95 05/16/17 12:35 98 Room Air 05/16/17 12:30 97.6 69 16 116/64 (81) 97 Room Air 05/16/17 12:15 68 15 125/69 (87) 100 Nasal Cannula 2 05/16/17 12:00 97.8 78 20 137/72 (93) 98 05/16/17 12:00 67 15 123/70 (87) 98 Nasal Cannula 2 05/16/17 11:55 97.1 69 20 125/69 (87) 100 Nasal Cannula 3 05/17/17 05/17/17 05/17/17 07:00 15:00 23:00 Intake Total 780 ml Output Total 800 ml Balance -20 ml Exam: GENERAL: A&OX3,NAD,GCS15 SKIN: UE warm and dry w/ motor intact L UE AVF incision intact with surgical glue/ NO R/D/S + Thrill palpated near L UE AVF Palpable R/L Radial pulses present Pt w/o hand pain Laboratory Date/Time Source Procedure Growth Status 05/09/17 10:53 Blood Peripheral Aerobic Blood Culture - Final NO GROWTH IN 5 DAYS Complete 05/09/17 10:53 Blood Peripheral Anaerobic Blood Culture - Final NO GROWTH IN 5 DAYS Complete Assessment and Plan Assessment: (1) ESRD (end stage renal disease) on dialysis Plan 57/M w/ a Hx of ESRD Pt S/P L brachiobasilic AVF (1st stage) Pt w/o complaints UE warm w/ motor intact + thrill near L UE AVF Plan Discussed and reviewed AVF post operative care and management Pt clear for D/C from a vascular stand point Arranged out pt f/u Pt made aware of plan Rula Hernandez NP [facility] [phone] Rula Hernandez [facility] May 17, 2017 12:12
--- NOTE | 2017-05-17 13:31 | HHI.NPPN ---
Subjective General Problems: Anemia Renal Failure: End Stage Renal Disease History of Present Illness 57-year-old male with a past medical history of hypertension, history of chronic kidney disease, chronic obstructive pulmonary disease, ischemic heart disease, benign prostatic hypertrophy, congestive heart failure, came to the hospital with complaint of chest pain and generalized weakness. I was called to see the patient because of elevated BUN and creatinine. Additional Remarks Seen during dialysis. Complaining of nausea and not getting breakfast because he had to go to dialysis (Lluvia Landeros) Review of Systems General Constitutional: Fatigue (Lluvia Landeros) Respiratory Respiratory Remarks Mild SOB (Lluvia Landeros) Cardiovascular Cardiac Remarks Denies CP (Lluvia Landeros) Gastrointestinal GI Remarks No Abdominal pain (Lluvia Landeros) Objective Data Data 05/17/17 05/18/17 19:00 07:00 Output Total 3000 ml Balance -3000 ml Hemodialysis 3000 ml Vital Signs Date Time Temp Pulse Resp B/P (MAP) Pulse Ox O2 Delivery O2 Flow Rate FiO2 05/17/17 08:00 74 05/17/17 07:20 Room Air 05/17/17 00:34 Room Air 05/17/17 00:34 98.7 83 18 128/79 (95) 95 05/16/17 23:41 75 05/16/17 19:57 21 05/16/17 19:43 88 05/16/17 19:39 98.6 86 20 120/57 (78) 96 05/16/17 19:39 Room Air 05/16/17 16:00 77 05/16/17 16:00 98.3 78 20 128/65 (86) 95 (Lluvia Landeros) -: 05/16/17 0850 05/16/17 0850 Tubes & Lines: Perma-Cath Tubes & Lines Comment right chest wall (Lluvia Landeros) Physical Exam General Appearance: No Acute Distress, Comfortable (Lluvia Landeros) Eyes Eye Exam: Pupils Equal (Lluvia Landeros) Ears & Nose Ears & Nose Exam: Nasal Mucosa [place] (Lluvia Landeros) Throat Throat Exam: Oral Mucosa [place] & Moist (Lluvia Landeros) Neck Neck Exam: Neck Supple, Trachea Midline (Lluvia Landeros) Pulmonary Resp Exam: Breath Sounds Equal, No Distress, Decreased Bases (Lluvia Landeros) Cardiology CV Exam: Regular, Normal Sinus Rhythm (Lluvia Landeros) Gastrointestinal/Abdomen GI Exam: Soft, Non-Tender, Bowel Sounds Present (Lluvia Landeros) Extremeties Extremities Exam: Trace Edema (Lluvia Landeros) Neurologic Neuro Exam: Alert, Awake, Oriented (Lluvia Landeros) Psychiatric Psych Exam: Appropriate Responses (Lluvia Landeros) Assessment/Plan Assessment Summary: Anemia of CKD, Hypertension, CKD Stage V Problem List: (1) CKD (chronic kidney disease) stage 5, GFR less than 15 ml/min ICD Codes: N18.5 - Chronic kidney disease, stage 5 Status: Chronic Plan: Biopsy report from 03/10/16 showed 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 Patient has advance stage 4-5 chronic kidney disease and is now ESRD Current RIJ tunneled catheter S/P AVF left arm. Positive thrill and bruit. Plan Continue Epogen 10,000 units with dialysis. Continue PhosLo and Calcitrol Dialysis will be at [place] Mon/Tue/Tue/@ 10:15am Dialysis today and 3 liters removed. Cleared for discharge from nephrology stand point Permanent Comment: Last Edited By: Lluvia Landeros on May 04, 2017 11:14 (2) Diastolic CHF ICD Codes: I50.30 - Unspecified diastolic (congestive) heart failure Status: Acute Plan: Lasix decreased to daily (3) Monoclonal gammopathy ICD Codes: D47.2 - Monoclonal gammopathy Status: Acute (4) Prostate enlargement ICD Codes: N40.0 - Benign prostatic hyperplasia without lower urinary tract symptoms Status: Chronic (5) Hyperkalemia ICD Codes: E87.5 - Hyperkalemia Status: Acute Plan: Resolved (6) Metabolic acidosis ICD Codes: E87.2 - Acidosis Status: Chronic Plan: Resolved (7) Anemia ICD Codes: D64.9 - Anemia, unspecified Status: Chronic Plan: Epogen with dialysis Plan (Lluvia Landeros) Problem List: (1) CKD (chronic kidney disease) stage 5, GFR less than 15 ml/min ICD Codes: N18.5 - Chronic kidney disease, stage 5 Status: Chronic Plan: Biopsy report from 03/10/16 showed 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 Patient has advance stage 4-5 chronic kidney disease and is now ESRD Current RIJ tunneled catheter S/P AVF left arm. Positive thrill and bruit. Plan Continue Epogen 10,000 units with dialysis. Continue PhosLo and Calcitrol Dialysis will be at [place] Mon/Tue/Tue/@ 10:15am Dialysis today and 3 liters removed. Cleared for discharge from nephrology stand point. Patient seen and examined, agree with above. Permanent Comment: Last Edited By: Lluvia Landeros on May 04, 2017 11:14 (2) Diastolic CHF ICD Codes: I50.30 - Unspecified diastolic (congestive) heart failure Status: Acute Plan: Lasix decreased to daily (3) Monoclonal gammopathy ICD Codes: D47.2 - Monoclonal gammopathy Status: Acute (4) Prostate enlargement ICD Codes: N40.0 - Benign prostatic hyperplasia without lower urinary tract symptoms Status: Chronic (5) Hyperkalemia ICD Codes: E87.5 - Hyperkalemia Status: Acute Plan: Resolved (6) Metabolic acidosis ICD Codes: E87.2 - Acidosis Status: Chronic Plan: Resolved (7) Anemia ICD Codes: D64.9 - Anemia, unspecified Status: Chronic Plan: Epogen with dialysis (Matt Davidson MD) Lluvia Landeros May 17, 2017 13:31 Matt Davidson MD May 17, 2017 18:14
[2017-05-17] MEDS: oxyCODONE/ACETAMINOPHEN 7.5 MG/325 MG TAB PO PRN ×3 (13:50→21:27)
--- NOTE | 2017-05-17 16:08 | HHI.PR ---
Subjective Remarks tolerating hemodialysis no complains concerned about - not getting his meds on DC states he was getting his meds free in the past d/w CM- - he now has Medicaid share of cost and has to pay co pay now- Michelle holden he explained this to him repeatedly Objective Vitals Vital Signs Date Time Temp Pulse Resp B/P (MAP) Pulse Ox O2 Delivery O2 Flow Rate FiO2 05/17/17 08:00 74 05/17/17 07:20 Room Air 05/17/17 00:34 Room Air 05/17/17 00:34 98.7 83 18 128/79 (95) 95 05/16/17 23:41 75 05/16/17 19:57 21 05/16/17 19:43 88 05/16/17 19:39 98.6 86 20 120/57 (78) 96 05/16/17 19:39 Room Air I/O 05/16/17 05/16/17 05/16/17 05/17/17 05/17/17 05/17/17 07:00 15:00 23:00 07:00 15:00 23:00 Intake Total 540 ml 750 ml 240 ml 780 ml Output Total 800 ml 10 ml 175 ml 800 ml 3000 ml Balance -260 ml 740 ml 65 ml -20 ml -3000 ml Intake Oral 540 ml 240 ml 780 ml Other 750 ml Output Urine Total 800 ml 175 ml 800 ml Hemodialysis 3000 ml Estimated Blood Loss 10 ml # Voids 3 # Bowel Movements 0 0 0 Result Diagram: 05/16/17 0850 05/16/17 0850 Imaging Last Impressions Chest X-Ray 05/09/17 0000 Signed Impressions: Service Date/Time: Tuesday, May 09, 2017 11:58 - CONCLUSION: 1. No acute findings. Minimal basilar atelectasis. Todd Clements MD Upper Extremity Ultrasound 05/07/17 0000 Signed Impressions: Service Date/Time: Sunday, May 07, 2017 20:50 - CONCLUSION: 1. Positive for deep venous thrombosis in the right subclavian vein around the port. No other DVT noted. Todd Clements MD Catheter Placement X-Ray 05/06/17 0000 Signed Impressions: Service Date/Time: Saturday, May 06, 2017 11:55 - CONCLUSION: Uncomplicated PermaCath placement as above. Jaylon Scott Jr., MD Abdomen/Pelvis CT 05/01/17 0000 Signed Impressions: Service Date/Time: Monday, May 01, 2017 13:15 - CONCLUSION: Trace free fluid in the abdomen. Cardiomegaly with trace left pleural effusion No inflammatory changes Garry Mccloud MD FACR Objective Remarks awake and alert, no acute distress anciteric lungs- no rales regular rhythm 05/03 systolic murmur left sternal border abdomen soft, nontender extremities no edema- + good bruit AVF Procedures 05/06/17 Right IJ permacath placement 05/03/17 EGD w/ biopsy 05/16/17 Left brachiobasilic arteriovenous fistula (first stage). A/P Problem List: (1) GI bleed ICD Code: K92.2 - Gastrointestinal hemorrhage, unspecified Status: Acute (2) CKD (chronic kidney disease) stage 5, GFR less than 15 ml/min ICD Code: N18.5 - Chronic kidney disease, stage 5 Status: Chronic Permanent Comment: Last Edited By: Lluvia Landeros on May 04, 2017 11:14 (3) Chest pain ICD Code: R07.9 - Chest pain, unspecified Status: Acute (4) Hypertension ICD Code: I10 - Essential (primary) hypertension Status: Chronic Assessment and Plan This is a 57 y/o Acute anemia secondary to acute blood loss- Resolved, Anemia of chronic renal disease - Monitor labs. - No sign of active bleeding. Appreciate GI recommendations. Status post EGD. Continue Protonix. Status post transfusion of 1 unit PRBCs. Hemoglobin is stable. - on epogen Mildly elevated troponin: Likely secondary to renal failure. Appreciate cardiology recommendations. Atypical chest pain -This is reproducible. Most likely musculoskeletal. Can give Tylenol as needed for pain. Need to avoid NSAIDs due to acute renal failure. Heart murmur: -Echocardiogram shows moderate aortic valve stenosis. Appreciate cardiothoracic surgery recommendations. Repeat echo in 6 months. Hyperkalemia: resolved Chronic kidney disease stage V - Appreciate nephrology recommendations. Permacath placed. Continue hemodialysis per nephrology (Tue//Tue). -Per dry molder patient had a biopsy on 03/10/2016 showed nodular glomerular sclerosis with a membranoproliferative pattern, severe interstitial fibrosis, severe arteriosclerosis, severe arteriolar hyalinosis, but without immune deposits or myeloma casts. -Continue Epogen 10,000 units with dialysis and PhosLo and Calcitrol -Vascular surgery following status post aVF on 05/16/2017. - Lasix 40 mg once daily Hypertension- better controlled - Continue amlodipine,carvedilol, HCTZ, hydralazine. Lasix - unable to tolerate LORA- adverse effect- cough Hyperlipidemia -Continue statin. Rash/pruritis: Improving. Atarax, Benadryl cream as needed. Add clotrimazole cream. Emollient ordered for pruritus Fever on 05/10/2017 - No obvious source of infection. Chest x-ray shows no acute findings. UA does not suggest UTI he is asymptomatic. Pending blood cultures. Patient has not had any fever since then. Continue to monitor clinically off of antibiotics. Muscle spasms/stiffness -Patient on Flexeril and BenGay. DVT prophylaxis: SCDs. Discharge Planning Still waiting for a chair for dialysis. d/w CM Problem Qualifiers (1) GI bleed: Qualified Codes: K92.2 - Gastrointestinal hemorrhage, unspecified (2) Chest pain: Qualified Codes: R07.9 - Chest pain, unspecified Khalif Moraes MD May 17, 2017 16:08
[2017-05-17] MEDS ORDERED: FURO1TAB60 PO (16:32)
[2017-05-17] MEDS: hydrOXYzine HCL 25 MG TAB PO PRN (17:46)
[2017-05-17] MEDS: TAMSULOSIN HCL 0.4 MG CAP PO SCH (21:25)
[2017-05-17] MEDS: ATORVASTATIN 80 MG TAB PO SCH (21:26)
[2017-05-17] MEDS: MIRTAZAPINE 15 MG TAB PO SCH (21:26)
[2017-05-17] MEDS: CYCLOBENZAPRINE HCL 10 MG TAB PO PRN (21:27)
[2017-05-18] VITALS: BP 117/69; PULSE 82; RESP 20; TEMP 98.3; O2SAT 97
[2017-05-18] MEDS: hydrOXYzine HCL 25 MG TAB PO PRN ×2 (01:45→09:22)
[2017-05-18] MEDS: oxyCODONE/ACETAMINOPHEN 7.5 MG/325 MG TAB PO PRN ×4 (01:47→13:15)
[2017-05-18 04:00] VITALS: BP 153/90; PULSE 75; RESP 20; TEMP 97.5; O2SAT 96
[2017-05-18 04:03] VITALS: PULSE 70
[2017-05-18 08:00] VITALS: BP 131/75; PULSE 70; RESP 18; TEMP 98.4; O2SAT 99
[2017-05-18] MEDS ORDERED: CALC.25 PO (08:54)
[2017-05-18] MEDS ORDERED: CALC667C PO (08:54)
[2017-05-18] MEDS: DOCUSATE SODIUM 50 MG/SENNA 8.6 MG TAB PO SCH (09:00)
--- NOTE | 2017-05-18 09:10 | HHI.PR ---
Subjective Remarks no complains Objective Vitals Vital Signs Date Time Temp Pulse Resp B/P (MAP) Pulse Ox O2 Delivery O2 Flow Rate FiO2 05/18/17 08:00 98.4 70 18 131/75 (93) 99 05/18/17 04:03 70 05/18/17 04:00 97.5 75 20 153/90 (111) 96 05/18/17 00:00 98.3 82 20 117/69 (85) 97 05/17/17 23:59 81 05/17/17 20:00 98.8 90 20 126/83 (97) 98 05/17/17 19:43 84 05/17/17 19:00 Room Air 05/17/17 16:00 98.7 75 20 137/63 (87) 97 05/17/17 16:00 78 05/17/17 12:00 63 I/O 05/17/17 05/17/17 05/17/17 05/18/17 05/18/17 05/18/17 07:00 15:00 23:00 07:00 15:00 23:00 Intake Total 780 ml 1020 ml 400 ml Output Total 800 ml 3000 ml 225 ml 500 ml Balance -20 ml -3000 ml 795 ml -100 ml Intake Oral 780 ml 1020 ml 400 ml Output Urine Total 800 ml 225 ml 500 ml Hemodialysis 3000 ml # Bowel Movements 0 0 1 Result Diagram: 05/16/17 0850 05/16/17 0850 Imaging Last Impressions Chest X-Ray 05/09/17 0000 Signed Impressions: Service Date/Time: Tuesday, May 09, 2017 11:58 - CONCLUSION: 1. No acute findings. Minimal basilar atelectasis. Todd Clements MD Upper Extremity Ultrasound 05/07/17 0000 Signed Impressions: Service Date/Time: Sunday, May 07, 2017 20:50 - CONCLUSION: 1. Positive for deep venous thrombosis in the right subclavian vein around the port. No other DVT noted. Todd Clements MD Catheter Placement X-Ray 05/06/17 0000 Signed Impressions: Service Date/Time: Saturday, May 06, 2017 11:55 - CONCLUSION: Uncomplicated PermaCath placement as above. Jaylon Scott Jr., MD Abdomen/Pelvis CT 05/01/17 0000 Signed Impressions: Service Date/Time: Monday, May 01, 2017 13:15 - CONCLUSION: Trace free fluid in the abdomen. Cardiomegaly with trace left pleural effusion No inflammatory changes Garry Mccloud MD FACR Objective Remarks awake and alert, no acute distress anicteric lungs- no rales regular rhythm 05/03 systolic murmur left sternal border abdomen soft, nontender extremities no edema- + good bruit AVF Procedures 05/06/17 Right IJ permacath placement 05/03/17 EGD w/ biopsy 05/16/17 Left brachiobasilic arteriovenous fistula (first stage). A/P Problem List: (1) GI bleed ICD Code: K92.2 - Gastrointestinal hemorrhage, unspecified Status: Acute (2) CKD (chronic kidney disease) stage 5, GFR less than 15 ml/min ICD Code: N18.5 - Chronic kidney disease, stage 5 Status: Chronic Permanent Comment: Last Edited By: Lluvia Landeros on May 04, 2017 11:14 (3) Chest pain ICD Code: R07.9 - Chest pain, unspecified Status: Acute (4) Hypertension ICD Code: I10 - Essential (primary) hypertension Status: Chronic Assessment and Plan This is a 57 y/o Acute anemia secondary to acute blood loss- Resolved, Anemia of chronic renal disease - Monitor labs. - No sign of active bleeding. Appreciate GI recommendations. Status post EGD. Continue Protonix. Status post transfusion of 1 unit PRBCs. Hemoglobin is stable. - on epogen with HD Mildly elevated troponin: Likely secondary to renal failure. Appreciate cardiology recommendations. Atypical chest pain- no furtehr complains -Most likely musculoskeletal. Can give Tylenol as needed for pain. Need to avoid NSAIDs due to acute renal failure. Heart murmur: -Echocardiogram shows moderate aortic valve stenosis. Appreciate cardiothoracic surgery recommendations. Repeat echo in 6 months. Hyperkalemia: resolved Chronic kidney disease stage V - Appreciate nephrology recommendations. Permacath placed. Continue hemodialysis per nephrology (Tue//Tue). -Per manager business information patient had a biopsy on 03/10/2016 showed nodular glomerular sclerosis with a membranoproliferative pattern, severe interstitial fibrosis, severe arteriosclerosis, severe arteriolar hyalinosis, but without immune deposits or myeloma casts. -Continue Epogen 10,000 units with dialysis and PhosLo and Calcitrol -Vascular surgery following status post aVF on 05/16/2017. - Lasix 40 mg once daily Hypertension- better controlled - Continue amlodipine,carvedilol, HCTZ, hydralazine. Lasix - unable to tolerate LORA- adverse effect- cough Hyperlipidemia -Continue statin. Rash/pruritis: Improving. Atarax, Benadryl cream as needed. Add clotrimazole cream. Emollient ordered for pruritus Fever on 05/10/2017 - No obvious source of infection. Chest x-ray shows no acute findings. UA does not suggest UTI he is asymptomatic. Pending blood cultures. Patient has not had any fever since then. Continue to monitor clinically off of antibiotics. Muscle spasms/stiffness -Patient on Flexeril and BenGay. DVT prophylaxis: SCDs. Discharge Planning d/w CM- OP HD arranged d/w Dr. Davidson- ks for DC- next hemodialysis- can be done on [facility] Problem Qualifiers (1) GI bleed: Qualified Codes: K92.2 - Gastrointestinal hemorrhage, unspecified (2) Chest pain: Qualified Codes: R07.9 - Chest pain, unspecified Khalif Moraes MD May 18, 2017 09:10
--- NOTE | 2017-05-18 09:12 | HHI.DS ---
Discharge Summary Admission Date May 01, 2017 at 16:40 Discharge Date: May 18, 2017 Admitting Diagnosis Symptomatic anemia, GI bleed, chest pain (1) GI bleed ICD Code: K92.2 - Gastrointestinal hemorrhage, unspecified Diagnosis: Principal Status: Acute (2) CKD (chronic kidney disease) stage 5, GFR less than 15 ml/min ICD Code: N18.5 - Chronic kidney disease, stage 5 Diagnosis: Principal Status: Chronic (3) Chest pain ICD Code: R07.9 - Chest pain, unspecified Diagnosis: Secondary Status: Acute (4) Hypertension ICD Code: I10 - Essential (primary) hypertension Diagnosis: Secondary Status: Chronic Procedures 05/06/17 Right IJ permacath placement 05/03/17 EGD w/ biopsy 05/16/17 Left brachiobasilic arteriovenous fistula (first stage). Brief History - From Admission 57-year-old male with a history of COPD, hypertension, CAD, CHF presented to the ED with complaints of chest pain and abdominal pain. Patient states for the past 2-3 days he has been experiencing intermittent stabbing left-sided chest pain with radiation to his neck and back with associated right arm numbness. He also complains of intermittent burning abdominal pain, midepigastric with associated nausea and chills. He states in 2016 he had a catheterization with no intervention needed. He states the pain in both his chest and abdomen are worse with taking a deep breath and relieved by rest. He denies any fever, dizziness or headaches. He does state he has had dark- colored stools for the past few days. Denies any hematuria. Dr. Marie is his sales promotion officer He does not follow with a rn rehabilitation at this time CBC/BMP: 05/16/17 0850 05/16/17 0850 Significant Findings Laboratory Tests Test 05/16/17 08:50 Red Blood Count 2.50 MIL/MM3 (4.50-5.90) Hemoglobin 8.1 GM/DL (13.0-17.0) Hematocrit 23.8 % (39.0-51.0) Monocytes (%) (Auto) 8.8 % (0.0-8.0) Eosinophils (%) (Auto) 6.2 % (0.0-4.0) Eosinophils # (Auto) 0.7 TH/MM3 (0-0.4) Blood Urea Nitrogen 26 MG/DL (7-18) Creatinine 6.89 MG/DL (0.60-1.30) Estimat Glomerular Filtration Rate 10 ML/MIN (>89) Imaging Last Impressions Chest X-Ray 05/09/17 0000 Signed Impressions: Service Date/Time: Tuesday, May 09, 2017 11:58 - CONCLUSION: 1. No acute findings. Minimal basilar atelectasis. Todd Clements MD Upper Extremity Ultrasound 05/07/17 0000 Signed Impressions: Service Date/Time: Sunday, May 07, 2017 20:50 - CONCLUSION: 1. Positive for deep venous thrombosis in the right subclavian vein around the port. No other DVT noted. Todd Clements MD Catheter Placement X-Ray 05/06/17 0000 Signed Impressions: Service Date/Time: Saturday, May 06, 2017 11:55 - CONCLUSION: Uncomplicated PermaCath placement as above. Jaylon Scott Jr., MD Abdomen/Pelvis CT 05/01/17 0000 Signed Impressions: Service Date/Time: Monday, May 01, 2017 13:15 - CONCLUSION: Trace free fluid in the abdomen. Cardiomegaly with trace left pleural effusion No inflammatory changes Garry Mccloud MD FACR PE at Discharge awake and alert, no acute distress anicteric lungs- no rales regular rhythm 3/6 systolic murmur left sternal border abdomen soft, nontender extremities no edema- + good bruit AVF Pt update on day of discharge no distress afebrile discuss with him HD arrangements- has been arranged- transportation etc d/w Dr. Davidson- may next get HD on d/w CM Hospital Course This is a 57 y/o Acute anemia secondary to acute blood loss- Resolved, Anemia of chronic renal disease - Monitor labs. - No sign of active bleeding. Appreciate GI recommendations. Status post EGD. Continue Protonix. Status post transfusion of 1 unit PRBCs. Hemoglobin is stable. - on epogen with HD Mildly elevated troponin: Likely secondary to renal failure. Appreciate cardiology recommendations. Atypical chest pain- no furtehr complains -Most likely musculoskeletal. Can give Tylenol as needed for pain. Need to avoid NSAIDs due to acute renal failure. Heart murmur: -Echocardiogram shows moderate aortic valve stenosis. Appreciate cardiothoracic surgery recommendations. Repeat echo in 6 months. Hyperkalemia: resolved Chronic kidney disease stage V - Appreciate nephrology recommendations. Permacath placed. Continue hemodialysis per nephrology (e/ur/Tue). 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 -Continue Epogen 10,000 units with dialysis and PhosLo and Calcitrol -Vascular surgery following status post aVF on 05/16/2017. - Lasix 40 mg once daily Hypertension- better controlled - Continue amlodipine,carvedilol, HCTZ, hydralazine. Lasix - unable to tolerate LORA- adverse effect- cough Hyperlipidemia -Continue statin. Rash/pruritis: Improved. Atarax, Benadryl cream as needed. Add clotrimazole cream. Emollient ordered for pruritus Fever on 05/10/2017 - No obvious source of infection. Chest x-ray shows no acute findings. UA does not suggest UTI he is asymptomatic. Pending blood cultures. Patient has not had any fever since then. Continue to monitor clinically off of antibiotics. Muscle spasms/stiffness -Patient on Flexeril and BenGay. DVT prophylaxis: SCDs. Discharge Planning d/w CM- OP HD arranged d/w Dr. Davidson- ok for DC- next hemodialysis- can be done on Frid Pt Condition on Discharge: Stable Discharge Disposition: Discharge Home Discharge Time: > 30 minutes Discharge Instructions DIET: Follow Instructions for: Heart Healthy Diet, Renal Failure Diet Activities you can perform: Weight Bearing as Rachid Follow up Referrals: Nephrology - 3-5 Days with [facility] - 6 Months with Bernadine Perez MD Vascular Surgery - 2 Weeks @ Vascular Surgery with Rick Morgan MD New Medications: Furosemide (Lasix) 40 Mg Tab 40 MG PO DAILY for FLU, #30 TAB 0 Refills Calcitriol (Rocaltrol) 0.25 Mcg Cap 0.25 MCG PO DAILY for RF for 30 Days, #30 CAP Calcium Acetate (Phosphate Bin (Calcium Acetate) 667 Mg Cap 667 MG PO TID for RF for 30 Days, CAP Continued Medications: Amlodipine (Norvasc) 5 Mg Tab 10 MG PO DAILY for Blood Pressure Management, #30 TAB [address] (Aspirin EC) 81 Mg Tabdr 81 MG PO DAILY, #30 TAB Atorvastatin (Atorvastatin) 80 Mg Tab 80 MG PO HS for Cholesterol Management, #30 TAB Carvedilol (Coreg) 12.5 Mg Tab 25 MG PO BID for Blood Pressure Management, #60 TAB 11 Refills Cholecalciferol (Vitamin D3) 1,000 Unit Tab 2000 UNITS PO DAILY, #60 TAB Clopidogrel (Clopidogrel) 75 Mg Tab 75 MG PO DAILY for Blood Clot Prevention, #30 TAB 5 Refills Cyclobenzaprine (Flexeril) 10 Mg Tab 10 MG PO TID for Build Immunity, #30 TAB Gabapentin (Gabapentin) 600 Mg Tab 600 MG PO TID, #90 TAB 0 Refills Hydralazine (Hydralazine) 100 Mg Tab 100 MG PO TID for Blood Pressure Management, #90 TAB 11 Refills Take with meals Mirtazapine (Mirtazapine) 15 Mg Tab 30 MG PO HS for Depression Control, #30 TAB 0 Refills Pantoprazole (Protonix) 40 Mg Tab 40 MG PO DAILY for Reflux, #30 TAB 3 Refills Tamsulosin (Flomax) 0.4 Mg Cap 0.4 MG PO HS for URO for 30 Days, CAP Discontinued Medications: Bumetanide (Bumetanide) 1 Mg Tab 1 MG PO DAILY for Blood Pressure Management, #30 TAB Khalif Moraes MD May 18, 2017 09:12
[2017-05-18] MEDS: CALCIUM ACETATE 667 MG CAP PO SCH ×2 (09:21→13:15)
[2017-05-18] MEDS: amLODIPine BESYLATE 5 MG TAB PO SCH (09:21)
[2017-05-18] MEDS: CARVEDILOL 12.5 MG TAB PO SCH (09:21)
[2017-05-18] MEDS: CALCITRIOL 0.25 MCG CAP PO SCH (09:21)
[2017-05-18] MEDS: hydrALAZINE HCL 100 MG TAB PO SCH ×2 (09:21→13:15)
[2017-05-18] MEDS: CYCLOBENZAPRINE HCL 10 MG TAB PO PRN (09:21)
[2017-05-18] MEDS: CLOTRIMAZOLE 1% CREAM 15 GM TOPICAL SCH (09:22)
[2017-05-18] MEDS: FUROSEMIDE 40 MG/4 ML VIAL IV PUSH SCH (09:22)
[2017-05-18] MEDS: SODIUM CHLORIDE 0.9% FLUSH 10 ML FLUSH IV FLUSH SCH (09:22)
[2017-05-18] MEDS: FERROUS SULFATE 325 MG (65 MG ELEMENTAL IRON) TAB PO SCH (09:22)
[2017-05-18] MEDS: PANTOPRAZOLE SOD 40 MG DELAYED RELEASE TAB PO SCH (09:22)
[2017-05-18] MEDS: GABAPENTIN 300 MG CAP PO SCH (09:22)
--- NOTE | 2017-05-18 11:22 | HHI.NPPN ---
Subjective General Problems: Anemia Renal Failure: End Stage Renal Disease History of Present Illness 57-year-old male with a past medical history of hypertension, history of chronic kidney disease, chronic obstructive pulmonary disease, ischemic heart disease, benign prostatic hypertrophy, congestive heart failure, came to the hospital with complaint of chest pain and generalized weakness. I was called to see the patient because of elevated BUN and creatinine. Additional Remarks Patient OOB in Chair. Discharge planned for today. (Lluvia Landeros) Review of Systems General Constitutional: Fatigue (Lluvia Landeros) Respiratory Respiratory Remarks Mild SOB (Lluvia Landeros) Cardiovascular Cardiac Remarks Denies CP (Lluvia Landeros) Gastrointestinal GI Remarks No Abdominal pain (Lluvia Landeros) Objective Data Data 05/18/17 05/19/17 19:00 07:00 Intake Total 400 ml Output Total 500 ml Balance -100 ml Intake Oral 400 ml Output Urine Total 500 ml # Bowel Movements 1 Vital Signs Date Time Temp Pulse Resp B/P (MAP) Pulse Ox O2 Delivery O2 Flow Rate FiO2 05/18/17 08:00 98.4 70 18 131/75 (93) 99 05/18/17 04:03 70 05/18/17 04:00 97.5 75 20 153/90 (111) 96 05/18/17 00:00 98.3 82 20 117/69 (85) 97 05/17/17 23:59 81 05/17/17 20:00 98.8 90 20 126/83 (97) 98 05/17/17 19:43 84 05/17/17 19:00 Room Air 05/17/17 16:00 98.7 75 20 137/63 (87) 97 05/17/17 16:00 78 05/17/17 12:00 63 (Lluvia Landeros) -: 05/16/17 0850 05/16/17 0850 Tubes & Lines: Perma-Cath Tubes & Lines Comment right chest wall (Lluvia Landeros) Physical Exam General Appearance: No Acute Distress, Comfortable (Lluvia Landeros) Eyes Eye Exam: Pupils Equal (Lluvia Landeros) Ears & Nose Ears & Nose Exam: Nasal Mucosa [place] (Lluvia Landeros) Throat Throat Exam: Oral Mucosa [place] & Moist (Lluvia Landeros) Neck Neck Exam: Neck Supple, Trachea Midline (Lluvia Landeros) Pulmonary Resp Exam: Breath Sounds Equal, No Distress, Decreased Bases (Lluvia Landeros) Cardiology CV Exam: Regular, Normal Sinus Rhythm (Lluvia Landeros) Gastrointestinal/Abdomen GI Exam: Soft, Non-Tender, Bowel Sounds Present (Lluvia Landeros) Extremeties Extremities Exam: Trace Edema (Lluvia Landeros) Neurologic Neuro Exam: Alert, Awake, Oriented (Lluvia Landeros) Psychiatric Psych Exam: Appropriate Responses (Lluvia Landeros) Assessment/Plan Assessment Summary: Anemia of CKD, Hypertension, CKD Stage V Problem List: (1) CKD (chronic kidney disease) stage 5, GFR less than 15 ml/min ICD Codes: N18.5 - Chronic kidney disease, stage 5 Status: Chronic Plan: Biopsy report from 03/10/16 showed 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 Patient has advance stage 4-5 chronic kidney disease and is now ESRD Current RIJ tunneled catheter S/P AVF left arm. Positive thrill and bruit. Plan Continue Epogen 10,000 units with dialysis. Continue PhosLo and Calcitrol Dialysis will be at [place] Mon/Tue/Tue/@ 10:15am Dialysis yesterday with 3 liters removed. Discharge planned for today will follow patient at [facility] Comment: Last Edited By: Lluvia Landeros on May 04, 2017 11:14 (2) Diastolic CHF ICD Codes: I50.30 - Unspecified diastolic (congestive) heart failure Status: Acute Plan: Lasix decreased to daily (3) Monoclonal gammopathy ICD Codes: D47.2 - Monoclonal gammopathy Status: Acute (4) Prostate enlargement ICD Codes: N40.0 - Benign prostatic hyperplasia without lower urinary tract symptoms Status: Chronic (5) Hyperkalemia ICD Codes: E87.5 - Hyperkalemia Status: Acute Plan: Resolved (6) Metabolic acidosis ICD Codes: E87.2 - Acidosis Status: Chronic Plan: Resolved (7) Anemia ICD Codes: D64.9 - Anemia, unspecified Status: Chronic Plan: Epogen with dialysis Plan (Lluvia Landeros) Problem List: (1) CKD (chronic kidney disease) stage 5, GFR less than 15 ml/min ICD Codes: N18.5 - Chronic kidney disease, stage 5 Status: Chronic Plan: Biopsy report from 03/10/16 showed 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 Patient has advance stage 4-5 chronic kidney disease and is now ESRD Current RIJ tunneled catheter S/P AVF left arm. Positive thrill and bruit. Plan Continue Epogen 10,000 units with dialysis. Continue PhosLo and Calcitrol Dialysis will be at [place] Tue/Tue/Tue/@ 10:15am Dialysis yesterday with 3 liters removed. Discharge planned for today will follow patient at [facility]. Patient seen and examined, agree with above. Out Patient HD is arranged. Permanent Comment: Last Edited By: Lluvia Landeros on May 04, 2017 11:14 (2) Diastolic CHF ICD Codes: I50.30 - Unspecified diastolic (congestive) heart failure Status: Acute Plan: Lasix decreased to daily (3) Monoclonal gammopathy ICD Codes: D47.2 - Monoclonal gammopathy Status: Acute (4) Prostate enlargement ICD Codes: N40.0 - Benign prostatic hyperplasia without lower urinary tract symptoms Status: Chronic (5) Hyperkalemia ICD Codes: E87.5 - Hyperkalemia Status: Acute Plan: Resolved (6) Metabolic acidosis ICD Codes: E87.2 - Acidosis Status: Chronic Plan: Resolved (7) Anemia ICD Codes: D64.9 - Anemia, unspecified Status: Chronic Plan: Epogen with dialysis (Matt Davidson MD) Lluvia Landeros May 18, 2017 11:22 Matt Davidson MD May 18, 2017 22:54
[2017-05-18 12:00] VITALS: BP 107/67; PULSE 74; RESP 20; TEMP 97.7; O2SAT 100
[2017-05-18] MEDS ORDERED: OXYC1TAB35 PO (14:54)
[2017-05-18] MEDS ORDERED: FERR325T20 PO (14:56)
== END 2017-05-18 15:26 | disposition home or self-care (01) | DRG 356 ==
LOC: NEPC 12:20 → NEDA 16:40 → N04B 18:03
PROVIDERS: ADMIT Internal Medicine; ATTEND Internal Medicine
PROC: 30233N1 Transfusion of Nonautologous Red Blood Cells into Peripheral Vein, Percutaneous Approach (ICD-10-PCS; 2017-05-02)
PROC: 0DB78ZX Excision of Stomach, Pylorus, Via Natural or Artificial Opening Endoscopic, Diagnostic (ICD-10-PCS; 2017-05-03)
PROC: 05HM33Z Insertion of Infusion Device into Right Internal Jugular Vein, Percutaneous Approach (ICD-10-PCS; 2017-05-06)
PROC: 5A1D70Z Performance of Urinary Filtration, Intermittent, Less than 6 Hours Per Day (ICD-10-PCS; 2017-05-06)
PROC: 03180ZD Bypass Left Brachial Artery to Upper Arm Vein, Open Approach (ICD-10-PCS; principal; 2017-05-16 10:33)
DX: K92.2 Gastrointestinal hemorrhage, unspecified (principal); N18.6 End stage renal disease; I13.2 Hypertensive heart and chronic kidney disease with heart failure and with stage 5 chronic kidney disease, or end stage renal disease; N17.9 Acute kidney failure, unspecified; I95.9 Hypotension, unspecified; E87.2 Acidosis; E11.22 Type 2 diabetes mellitus with diabetic chronic kidney disease; E11.42 Type 2 diabetes mellitus with diabetic polyneuropathy; D62 Acute posthemorrhagic anemia; E87.1 Hypo-osmolality and hyponatremia; I50.32 Chronic diastolic (congestive) heart failure; D63.1 Anemia in chronic kidney disease; G89.29 Other chronic pain; D72.829 Elevated white blood cell count, unspecified; J44.9 Chronic obstructive pulmonary disease, unspecified; I25.10 Atherosclerotic heart disease of native coronary artery without angina pectoris; E78.5 Hyperlipidemia, unspecified; K57.30 Diverticulosis of large intestine without perforation or abscess without bleeding; R07.2 Precordial pain; E87.5 Hyperkalemia; N40.0 Benign prostatic hyperplasia without lower urinary tract symptoms; F32.9 Major depressive disorder, single episode, unspecified; F10.11 Alcohol abuse, in remission; I35.0 Nonrheumatic aortic (valve) stenosis; R21 Rash and other nonspecific skin eruption; L29.9 Pruritus, unspecified; M62.838 Other muscle spasm; D47.2 Monoclonal gammopathy; E87.6 Hypokalemia; K21.9 Gastro-esophageal reflux disease without esophagitis; M54.2 Cervicalgia; M54.5 Low back pain; K29.70 Gastritis, unspecified, without bleeding; Z79.82 Long term (current) use of aspirin; Z87.891 Personal history of nicotine dependence; Z95.0 Presence of cardiac pacemaker; Z99.2 Dependence on renal dialysis; Z23 Encounter for immunization
CPT/HCPCS: 36430; 36558; 71045; 74176; 76942; 77001; 80048; 80074; 80076; 81001; 82550; 82728; 83540; 83550; 83605; 83690; 83735; 83880; 84100; 84155; 84484; 85014; 85018; 85025; 85027; 85610; 85730; 86850; 86900; 86901; 86920; 87040; 88305; 88312; 90686; 90935; 93005; 93306; 93970; 93998; 94664; 96374; 96375; 99152; 99153; C1750; C1769; C9113; J0610; J0690; J1580; J1644; J1817; J1940; J2250; J2270; J2370; J2405; J2720; J3010; J3370; J7040; J7050; J7611; P9016; Q2038; Q4081

== ENCOUNTER 2017-08-05 06:14 | Observation (INO) | payer MEDICAID ==
[~2017-08-05] VITALS: Ht 188 cm; Wt 92.0 kg
[~2017-08-05 06:14] MED LIST changes: -AMLO10TA2 PO; -BUME1TAB PO; +CALC.25 PO; -CALC600T10 PO; +CALC667C PO; +FERR325T20 PO; +FURO1TAB60 PO; -GABA600T PO; +LOSA50TA PO; -NEUR300C PO; +OXYC1TAB35 PO; -VITA500012 PO
[2017-08-05] MEDS ORDERED: ETOMIDATE 20 MG/10 ML VIAL ONE (06:41)
[2017-08-05] MEDS ORDERED: SODIUM CHLORID 0.9% 500 ML IV PRN (06:45)
[2017-08-05] MEDS ORDERED: CHLORHEXIDINE GLUCONATE 2 % 1 PACK (2 CLOTHS) TOPICAL PRN (06:45)
[2017-08-05] MEDS ORDERED: LACTATED RINGER'S 1000 ML IV PRN (06:45)
[2017-08-05] MEDS ORDERED: METOPROLOL TARTRATE 25 MG TAB PO PRN (06:45)
[2017-08-05] MEDS ORDERED: POVIDONE IODINE 5% (ANTISEPSIS KIT) 4 APPLICATIONS EACH NARE PRN (06:45)
--- NOTE | 2017-08-05 07:31 | HHI.HP ---
History of Present Illness Chief Complaint: ESRD, need for HD access, s/p L brachiobasilic AVF (1st stage) History of Present Illness 57 yo male with ESRD on HD MWF, last rec'd HD Wed who presents for elective revision of LEFT UE AVF that was created 05/16/17. No hand/arm/incision troubles. Past/Family/Social History Past Medical History ESRD HTN COPD CAD XOL BPH CHF Past Surgical History L UE AVF Social History + tobaccco Family History [place] Home Medications Active Scripts Ferrous Sulfate (Ferosul) 325 Mg (65 Mg Iron) Tablet, 325 MG PO BID for anemia for 30 Days, #60 TAB Prov:Khalif Moraes MD 05/18/17 Oxycodone HCl/Acetaminophen (Oxycodon-Acetaminophen 7.5-325) 7.5 Mg-325 Mg Tablet, 1 TAB PO Q6 Y for PAIN SCALE 7 TO 10, #15 TAB Prov:Khalif Moraes MD 05/18/17 Calcitriol (Rocaltrol) 0.25 Mcg Cap, 0.25 MCG PO DAILY for RF for 30 Days, #30 CAP Prov:Khalif Moraes MD 05/18/17 Calcium Acetate (Phosphate Bin (Calcium Acetate) 667 Mg Cap, 667 MG PO TID for RF for 30 Days, CAP Prov:Khalif Moraes MD 05/18/17 Furosemide (Lasix) 40 Mg Tab, 40 MG PO DAILY for FLU, #30 TAB 0 Refills Prov:Khalif Moraes MD 05/17/17 Hydrochlorothiazide (Hydrochlorothiazide) 12.5 Mg Cap, 12.5 MG PO DAILY for Blood Pressure Management, #30 CAP 11 Refills Prov:Paul Bernabe MD 11/08/16 Amlodipine (Norvasc) 5 Mg Tab, 10 MG PO DAILY for Blood Pressure Management, # 30 TAB 11 Refills Prov:Paul Bernabe MD 11/08/16 Carvedilol (Coreg) 12.5 Mg Tab, 25 MG PO BID for Blood Pressure Management, #60 TAB 11 Refills Prov:Paul Bernabe MD 11/08/16 Hydralazine (Hydralazine) 100 Mg Tab, 100 MG PO TID for Blood Pressure Management, #90 TAB 11 Refills Take with meals Prov:Paul Bernabe MD 11/08/16 Atorvastatin (Atorvastatin) 80 Mg Tab, 80 MG PO HS for Cholesterol Management, # 30 TAB Prov:Paul Bernabe MD 11/08/16 Cyclobenzaprine (Flexeril) 10 Mg Tab, 10 MG PO TID for Build Immunity, #30 TAB Prov:Paul Bernabe MD 11/08/16 Tamsulosin (Flomax) 0.4 Mg Cap, 0.4 MG PO HS for URO for 30 Days, CAP Prov:Khalif Moraes MD 09/21/16 Clopidogrel (Clopidogrel) 75 Mg Tab, 75 MG PO DAILY for Blood Clot Prevention, # 30 TAB 5 Refills Prov:Rosalba Quintero MD 09/02/16 Cholecalciferol (Vitamin D3) 1,000 Unit Tab, 2000 UNITS PO DAILY, #60 TAB Prov:Daina Harper MD R3 03/15/[address] (Aspirin EC) 81 Mg Tabdr, 81 MG PO DAILY, #30 TAB Prov:Daina Harper MD R3 03/15/16 Pantoprazole (Protonix) 40 Mg Tab, 40 MG PO DAILY for Reflux, #30 TAB 3 Refills Prov:Rosalba Quintero MD 01/08/16 Reported Medications Losartan (Losartan) 50 Mg Tab, 50 MG PO DAILY for Blood Pressure Management, # 30 TAB 0 Refills 08/03/17 Mirtazapine (Mirtazapine) 15 Mg Tab, 30 MG PO HS for Depression Control, #30 TAB 0 Refills 06/21/16 Discontinued Reported Medications Hydrocodone-Acetaminophen (Hydrocodone-Acetaminophen) 10-325 mg Tab, 1 TAB PO Q4H Y for PAIN, TAB 0 Refills 05/01/17 Gabapentin (Gabapentin) 600 Mg Tab, 600 MG PO TID, #90 TAB 0 Refills 10/21/16 Discontinued Scripts Gabapentin (Neurontin) 300 Mg Cap, 300 MG PO DAILY for Build Immunity, #30 CAP Prov:Paul Bernabe MD 11/08/16 Amlodipine (Amlodipine) 10 Mg Tab, 10 MG PO DAILY for Blood Pressure Management , #90 TAB 6 Refills Prov:Rosalba Quintero MD 07/22/16 Coded Allergies: pregabalin (Verified Allergy, Severe, Rash, 08/05/17) *MDRO Multi-Drug Resistant Organism (Verified Adverse Reaction, Unknown, ) 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 Review of Systems Constitutional: DENIES: Diaphoretic episodes, Fatigue, Fever, Weight gain, Weight loss, Chills, Dizziness, Change in appetite, Night Sweats Cardiovascular: DENIES: Chest pain, Palpitations, Syncope, Dyspnea on Exertion , PND, Lower Extremity Edema, Orthopnea, Claudication Physical Exam Neuro: alert, oriented, no distress HEENT: NC/AT Neck: no JVD Heart: reg rate, no M Lungs: clear B Vascular: L UE with + thrill Extremities: no hand dysfunction L UE pending L UE duplex reviewed - mature AVF Caprini VTE Risk Assessment Caprini VTE Risk Assessment: No/Low Risk (score <= 1) Caprini Risk Assessment Model Point Value = 1 Point Value = 2 Point Value = 3 Point Value = 5 Age 41-60 Minor surgery BMI > 25 kg/m2 Swollen legs Varicose veins or History of unexplained or recurrent spontaneous Oral contraceptives or hormone replacement Sepsis (< 1 month) Serious lung disease, including pneumonia (< 1 month) Abnormal pulmonary function Acute myocardial infarction Congestive heart failure (< 1 month) History of inflammatory bowel disease Medical patient at bed rest Age 61-74 Arthroscopic surgery Major open surgery (> 45 min) Laparoscopic surgery (> 45 min) Malignancy Confined to bed (> 72 hours) Immobilizing plaster cast Central venous access Age >= 75 History of VTE Family history of VTE Factor V Leiden Prothrombin [id number] Lupus anticoagulant Anticardiolipin antibodies Elevated serum homocysteine Heparin-induced thrombocytopenia Other congenital or acquired thrombophilia Stroke (< 1 month) Elective arthroplasty Hip, pelvis, or leg fracture Acute spinal cord injury (< 1 month) Prophylaxis Regimen Total Risk Factor Score Risk Level Prophylaxis Regimen 0-1 Low Early ambulation 2 Moderate Order ONE of the following: *Sequential Compression Device (SCD) *Heparin 5000 units SQ BID 3-4 Higher Order ONE of the following medications: *Heparin 5000 units SQ TID *Enoxaparin/Lovenox 40 mg SQ daily (WT < 150 kg, CrCl > 30 mL/min) *Enoxaparin/Lovenox 30 mg SQ daily (WT < 150 kg, CrCl > 10-29 mL/min) *Enoxaparin/Lovenox 30 mg SQ BID (WT < 150 kg, CrCl > 30 mL/min) AND/OR *Sequential Compression Device (SCD) 5 or more Highest Order ONE of the following medications: *Heparin 5000 units SQ TID (Preferred with Epidurals) *Enoxaparin/Lovenox 40 mg SQ daily (WT < 150 kg, CrCl > 30 mL/min) *Enoxaparin/Lovenox 30 mg SQ daily (WT < 150 kg, CrCl > 10-29 mL/min) *Enoxaparin/Lovenox 30 mg SQ BID (WT < 150 kg, CrCl > 30 mL/min) AND *Sequential Compression Device (SCD) Assessment and Plan Plan L UE AVF revision POA for observation and HD Anticipate d/c Sat (POD#1) Discharge Planning Sat (POD#1) Rick Morgan MD Aug 05, 2017 07:31
[2017-08-05] MEDS ORDERED: HYDR-3583 PO (07:36)
[2017-08-05 07:51] LABS: AUTOMATED NEUTROPHIL # 5.3 TH/MM3 (1.8-7.7); BASOPHIL # 0.1 TH/MM3 (0-0.2); BASOPHIL % 0.9 % (0.0-2.0); EOSINOPHIL # 0.5 TH/MM3 (0-0.4); EOSINOPHIL % 4.9 % (0.0-4.0); HEMATOCRIT 27.7 % (39.0-51.0); HEMOGLOBIN 9.6 GM/DL (13.0-17.0); LYMPH % 30.5 % (9.0-44.0); LYMPHOCYTE # 2.9 TH/MM3 (1.0-4.8); MEAN CORPUSCULAR HEMOGLOBIN 34.6 PG (27.0-34.0); MEAN CORPUSCULAR HGB CONC 34.6 % (32.0-36.0); MEAN PLATELET VOLUME 8.7 FL (7.0-11.0); MONO % 7.2 % (0.0-8.0); MONOCYTE # 0.7 TH/MM3 (0-0.9); NEUT % 56.5 % (16.0-70.0); PLATELET COUNT 191 TH/MM3 (150-450); RED BLOOD COUNT 2.77 MIL/MM3 (4.50-5.90); RED CELL DISTRIBUTION WIDTH 17.6 % (11.6-17.2); WHITE BLOOD COUNT 9.4 TH/MM3 (4.0-11.0)
[2017-08-05 07:59] LABS: PROTHROMBIN TIME - PATIENT 10.3 SEC (9.8-11.6)
[2017-08-05] MEDS ORDERED: ACETAMINOPHEN 1000 MG/100 ML 100 ML IV ONE (07:59)
[2017-08-05] MEDS ORDERED: KETAMINE HCL 50 MG/5 ML SYRINGE ONE (07:59)
[2017-08-05 08:06] LABS: BICARBONATE 23.9 MEQ/L (21.0-32.0); CALCIUM 8.4 MG/DL (8.5-10.1); CREATININE 5.62 MG/DL (0.60-1.30)
[2017-08-05] MEDS ORDERED: VANCOMYCIN HCL 1000 MG VIAL ONE (08:09)
[2017-08-05] MEDS ORDERED: HEPARIN-NS/PF INJ 500 ML ONE ×2 (08:09→10:01)
[2017-08-05] MEDS ORDERED: PROTAMINE SULFATE 50 MG/5 ML VIAL ONE (08:09)
[2017-08-05] MEDS ORDERED: THROMBIN (TOPICAL) 20,000 UNIT SPRAY KIT ONE (08:09)
[2017-08-05] MEDS ORDERED: BUPIVACAINE HCL PF 0.5% 10 ML VIAL ONE (08:09)
[2017-08-05] MEDS ORDERED: HEPARIN SODIUM - IV 10,000 UNITS/10 ML VIAL ONE (08:09)
[2017-08-05] MEDS ORDERED: FAMOTIDINE 20 MG/2 ML VIAL ONE (08:18)
--- NOTE | 2017-08-05 10:04 | HHI.PR ---
cc: Rick Morgan MD Immediate Post Op Note Procedure Date: Aug 05, 2017 Pre Op Diagnosis: ESRD, need for HD access Post Op Diagnosis: ESRD, need for HD access Surgeon: Rick Morgan Software Controls Engineer(s): none Procedure: L UE access revision (transposition of LEFT brachiobasilic) Findings: + thrill and palpable radial pulse after AVF Complications: none Specimen(s) removed: none Estimated blood loss: 50mL Anesthesia: General Drains: None Fluids: 500mL IVF Patient to: PACU Patient Condition: Good Date/Time of Procedure: SEE SURGICAL CARE RECORD Rick Morgan MD Aug 05, 2017 10:04
[2017-08-05] MEDS ORDERED: SENNOSIDES 8.6 MG TAB PO PRN (10:15)
[2017-08-05] MEDS ORDERED: BISACODYL 10 MG SUPP RECTAL PRN (10:15)
[2017-08-05] MEDS ORDERED: HYDROmorphone HCL 2 MG TAB PO PRN (10:15)
[2017-08-05] MEDS ORDERED: LACTULOSE SYRUP 20 GM/30 ML CUP PO PRN (10:15)
[2017-08-05] MEDS ORDERED: DO NOT ADM ANY ANTICOAGULANT DRUGS PRN (10:18)
[2017-08-05] MEDS ORDERED: *morphine SULFATE 10 MG/ML PERIprocedure ONLY ONE ×3 (10:24→10:55)
[2017-08-05] MEDS ORDERED: MIDAZOLAM HCL 2 MG/2 ML VIAL ONE (10:24)
[2017-08-05] MEDS ORDERED: *MEPERIDINE 25 MG INJ VIAL PERIprocedural Use ONLY ONE (10:33)
[2017-08-05] MEDS ORDERED: HYDROmorphone HCL PF 0.5 MG/0.5 ML SYRINGE ONE (11:32)
[2017-08-05] MEDS ORDERED: SODIUM CHLOR 0.9% 1000 ML INJ 1,000 ML IV PRN (12:40)
[2017-08-05] MEDS ORDERED: SODIUM CHLOR 0.9% 1000 ML INJ 1,000 ML OTHER PRN ×2 (12:40)
[2017-08-05] MEDS ORDERED: ONDANSETRON HCL 4 MG/2 ML VIAL IV PUSH PRN (12:45)
[2017-08-05] MEDS ORDERED: cloNIDine HCL 0.1 MG TAB PO PRN (12:45)
[2017-08-05] MEDS ORDERED: GELATIN 12 MM/7 MM FOAM TOP PRN (12:45)
[2017-08-05] MEDS ORDERED: MANNITOL 12.5 GM/50 ML VIAL IV PRN (12:45)
[2017-08-05] MEDS ORDERED: EPOETIN ALFA 10,000 UNITS/ML VIAL IV PUSH PRN (12:45)
[2017-08-05] MEDS ORDERED: NITROGLYCERIN 0.4 MG SL 25 TABS/BTL SL PRN (12:45)
[2017-08-05] MEDS ORDERED: SODIUM CHLORIDE 0.9% FLUSH 10 ML FLUSH IV FLUSH PRN (12:45)
[2017-08-05] MEDS ORDERED: ACETAMINOPHEN 325 MG TAB PO PRN (12:45)
[2017-08-05] MEDS ORDERED: HEPARIN SODIUM - IV 10,000 UNITS/10 ML VIAL PRN (12:45)
[2017-08-05] MEDS ORDERED: ALBUMIN 25% INJ 100 ML IV PRN (12:45)
[2017-08-05] MEDS ORDERED: HEPARIN SODIUM - IV 10,000 UNITS/10 ML VIAL IV FLUSH PRN (12:45)
[2017-08-05] MEDS ORDERED: GENTAMICIN SULFATE 20 MG/2 ML VIAL OTHER PRN (12:45)
--- NOTE | 2017-08-05 12:53 | PD.CONS ---
HPI Service Nephrology Consult Requested By Dr. Dubois Reason for Consult End stage renal disease on hemodialysis Primary Care Physician Troy Emanuel MD History of Present Illness Patient is a 57-year-old male with a past medical history of hypertension, history of chronic kidney disease, chronic obstructive,pulmonary disease, ischemic heart disease, benign prostatic hypertrophy, congestive heart failure, and end stage renal disease on hemodialysis. Patient is S/p AVF revision of left upper arm. Nephrology is consulted for management of end stage renal disease and hemodialysis. Dialysis days are Tuesday, Tuesday, and Tuesday with last hemodialysis on Tuesday. Dialysis has been arranged for today. (Lluvia Landeros) Review of Systems Constitutional: COMPLAINS OF: Fatigue Respiratory: COMPLAINS OF: Shortness of breath, DENIES: Sputum production Cardiovascular: COMPLAINS OF: Dyspnea on Exertion, DENIES: Chest pain Gastrointestinal: DENIES: Abdominal pain, Diarrhea, Nausea, Vomiting Musculoskeletal: COMPLAINS OF: Joint pain, Stiffness Psychiatric: COMPLAINS OF: Anxiety (Lluvia Landeros) Past Family Social History Allergies: Coded Allergies: pregabalin (Verified Allergy, Severe, Rash, 08/05/17) *MDRO Multi-Drug Resistant Organism (Verified Adverse Reaction, Unknown, ) 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 Past Medical History Hypertension Coronary artery disease heart murmur Chronic obstructive pulmonary disease Benign prostrate hypertrophy Hyperlipidemia Congestive heart disease End stage renal disease on hemodialysis Past Surgical History colonoscopy coronary angiogram Active Ordered Medications Current Medications Medications (Trade) Dose Ordered Sig/Ramakrishna Route Start Time Stop Time Status Last Admin Lactated Ringer's 1,000 ml @ 30 mls/hr Q24H PRN IV 08/05/17 06:45 08/08/17 06:44 Sodium Chloride 500 ml @ 30 mls/hr [id number] PRN IV 08/05/17 06:45 08/08/17 06:44 08/05/17 07:40 (Lopressor) 25 mg [employer] PRN PO 08/05/17 06:45 08/08/17 06:44 (Betadine 5% Antisepsis Kit) 1 applic [employer]IDENTIAL PROPERTY CONSULTANT PRN EACH NARE 08/05/17 06:45 08/08/17 06:44 08/05/17 07:49 (Chlorhexidine 2% Cloth) 3 pack [employer]IAL [employer]ANT PRN TOPICAL 08/05/17 06:45 08/08/17 06:44 08/05/17 07:00 (Aspirin Chew) 81 mg DAILY PO 08/06/17 09:00 (Pepcid) 10 mg BID PO 08/05/17 21:00 (Roxicodone) 5 mg Q4H PRN PO 08/05/17 10:15 (Dilaudid) 2 mg Q4H PRN PO 08/05/17 10:15 (Heparin Inj) 5,000 units Q8H SQ 08/06/17 09:00 (Kasey-Colace) 1 tab BID PO 08/05/17 21:00 (Senokot) 17.2 mg Q12H PRN PO 08/05/17 10:15 (Dulcolax Supp) 10 mg DAILY PRN RECTAL 08/05/17 10:15 (Lactulose Liq) 30 ml DAILY PRN PO 08/05/17 10:15 (Norvasc) 10 mg DAILY PO 08/06/17 09:00 (Lipitor) 80 mg HS PO 08/05/17 21:00 (Rocaltrol) 0.25 mcg DAILY PO 08/06/17 09:00 (Phoslo) 667 mg TID PO 08/05/17 13:00 (Coreg) 25 mg BID PO 08/05/17 21:00 (Vitamin D3) 2,000 units DAILY PO 08/06/17 09:00 (Plavix) 75 mg DAILY PO 08/06/17 09:00 (Flexeril) 10 mg TID PO 08/05/17 13:00 (Ferrous Sulfate) 325 mg BID PO 08/05/17 21:00 (Lasix) 40 mg DAILY PO 08/06/17 09:00 (Apresoline) 100 mg TID PO 08/05/17 13:00 (Microzide) 12.5 mg DAILY PO 08/06/17 09:00 (Cozaar) 50 mg DAILY PO 08/06/17 09:00 (Remeron) 30 mg HS PO 08/05/17 21:00 (Protonix) 40 mg DAILY PO 08/06/17 09:00 (Flomax) 0.4 mg HS PO 08/05/17 21:00 ([facility] Nursing Information) ALL NURSING DEPARTME... UNSCH PRN .XX 08/05/17 10:18 08/06/17 10:17 Family History mom-Crohns and diabetes Social History Former smoker Denies ETOH use (Lluvia Landeros) Physical Exam Vital Signs Vital Signs Date Time Temp Pulse Resp B/P (MAP) Pulse Ox O2 Delivery O2 Flow Rate FiO2 08/05/17 10:17 98.0 64 20 134/70 (91) 100 Nasal Cannula 2 08/05/17 07:48 98.6 73 16 133/76 (95) 99 Physical Exam GENERAL: Alert and oriented SKIN: Warm and dry. Left arm with dressing. Permacath in right chest wall HEAD: Normocephalic. EYES: No scleral icterus. No injection or drainage. NECK: Supple, trachea midline. No JVD or lymphadenopathy. CARDIOVASCULAR: Regular rate and rhythm without murmurs, gallops, or rubs. RESPIRATORY: Breath sounds equal bilaterally. No accessory muscle use. GASTROINTESTINAL: Abdomen soft, non-tender, nondistended. MUSCULOSKELETAL: No cyanosis, or edema. BACK: Nontender without obvious deformity. No CVA tenderness. Laboratory Laboratory Tests Test 08/05/17 07:28 White Blood Count 9.4 Red Blood Count 2.77 Hemoglobin 9.6 Hematocrit 27.7 Mean Corpuscular Volume 100.0 Mean Corpuscular Hemoglobin 34.6 Mean Corpuscular Hemoglobin Concent 34.6 Red Cell Distribution Width 17.6 Platelet Count 191 Mean Platelet Volume 8.7 Neutrophils (%) (Auto) 56.5 Lymphocytes (%) (Auto) 30.5 Monocytes (%) (Auto) 7.2 Eosinophils (%) (Auto) 4.9 Basophils (%) (Auto) 0.9 Neutrophils # (Auto) 5.3 Lymphocytes # (Auto) 2.9 Monocytes # (Auto) 0.7 Eosinophils # (Auto) 0.5 Basophils # (Auto) 0.1 CBC Comment DIFF FINAL Differential Comment Prothrombin Time 10.3 Prothromb Time International Ratio 1.0 Blood Urea Nitrogen 18 Creatinine 5.62 Random Glucose 87 Calcium Level 8.4 Sodium Level 141 Potassium Level 4.0 Chloride Level 106 Carbon Dioxide Level 23.9 Anion Gap 11 Estimat Glomerular Filtration Rate 13 (Lluvia Landeros) Result Diagram: 08/05/17 0728 08/05/17 0728 Assessment and Plan Problem List: (1) End stage renal disease ICD Codes: N18.6 - End stage renal disease Plan: Hemodialysis days are Tuesday, Tuesday, and Tuesday via permacath. Continue PhosLo and Calcitrol Hemodialysis arranged for today orders placed remove fluid as tolerated (2) Anemia ICD Codes: D64.9 - Anemia, unspecified Status: Chronic Plan: Epogen with dialysis (Lluvia Landeros) Problem List: (1) End stage renal disease ICD Codes: N18.6 - End stage renal disease Plan: Hemodialysis days are Tuesday, Tuesday, and Tuesday via permacath. Continue PhosLo and Calcitrol Hemodialysis arranged for today orders placed remove fluid as tolerated. Patient seen during HD and examined, agree with above. AVF superficialization done. Possible discharge. (2) Anemia ICD Codes: D64.9 - Anemia, unspecified Status: Chronic Plan: Epogen with dialysis (Matt Davidson MD) Lluvia Landeros Aug 05, 2017 12:53 Matt Davidson MD Aug 09, 2017 00:26
[2017-08-05] MEDS: hydrALAZINE HCL 100 MG TAB PO SCH ×2 (13:00→19:29)
--- NOTE | 2017-08-05 13:18 | MP ---
cc: Rick Morgan MD DATE OF OPERATION: PREOPERATIVE DIAGNOSIS: Endstage renal disease, need for dialysis access. POSTOPERATIVE DIAGNOSIS: Endstage renal disease, need for dialysis access. PROCEDURE PERFORMED: Left upper extremity access revision (second stage brachiobasilic, transposition). ATTENDING SURGEON: Rick Morgan MD ANESTHESIA: General. INDICATION: Mr. Stiles is a 57-year-old gentleman with end-stage renal disease. Several months ago he underwent a left upper extremity first stage brachiobasilic. He is taken to the operating room today for a second stage to include transposition. DESCRIPTION OF PROCEDURE: Informed consent was obtained from the patient. He was taken to the operating room and placed supine on the operating table. An appropriate timeout was taken to ensure the patient's identity, operative site and planned procedure. Administration of 1 gram of vancomycin was initiated prior to skin incision and will be discontinued after a single preoperative dose. Vancomycin was chosen because of the patient's end-stage renal disease. Everyone in the room agreed with timeout and we proceeded. The left arm was prepped and draped. An incision was made over the medial aspect of the upper arm, carried down through subcutaneous tissue with electrocautery. The basilic vein was identified and dissected free from the antecubitum all the way up to the axillary vein. It was trimmed. It was marked for orientation, transected distally and the distal limbs oversewn with silk suture and Hemoclips. The brachial artery was identified at the medial aspect of the incision and the vein was then tunneled anteriorly in a very superficial plane, taking caution not to twist it. The patient was systemically heparinized with 3000 units of IV heparin. Proximal and distal control of the brachial artery was obtained with profunda clamps and a longitudinal arteriotomy was made with an 11 blade, extended with [place] scissors. The vein was spatulated and sewn end-to-side to the brachial artery with running 6-0 Prolene suture. The incision was flushed and noted to be hemostatic. There was a nice thrill in the fistula with a palpable pulse in the wrist. The wound was infiltrated with Marcaine. The heparin was reversed with protamine. The wound was closed with 2-0 Polysorb, 3-0 Polysorb and 4-0 Monocryl. The sponge and needle counts were correct at the end of the case. I was present and scrubbed for the entire procedure. MD EVE Dodson/LINDA , 01:04 PM , 01:18 PM
[2017-08-05] MEDS: CYCLOBENZAPRINE HCL 10 MG TAB PO SCH ×2 (14:00→20:17)
[2017-08-05] MEDS: CALCIUM ACETATE 667 MG CAP PO SCH ×2 (14:00→19:29)
[2017-08-05] MEDS ORDERED: ONDANSETRON HCL 4 MG/2 ML VIAL IV PUSH ONE (14:06)
[2017-08-05] MEDS ORDERED: LIDOCAINE HCL 1% PF 5 ML SYRINGE OTHER ONE (14:06)
[2017-08-05] MEDS ORDERED: PROPOFOL 200 MG/20 ML AMP IV ONE (14:06)
[2017-08-05] MEDS: diphenhydrAMINE HCL 25 MG CAP PO PRN (15:26)
[2017-08-05 18:53] VITALS: BP 170/75; PULSE 69; RESP 18; TEMP 98.3; O2SAT 100
[2017-08-05 19:00] VITALS: PULSE 70
[2017-08-05 20:00] VITALS: BP 148/79; PULSE 78; PULSE 80; RESP 20; TEMP 98.1; O2SAT 98
[2017-08-05 21:00] VITALS: PULSE 80
[2017-08-05] MEDS ORDERED: TAMSULOSIN HCL 0.4 MG CAP PO SCH (21:00)
[2017-08-05] MEDS ORDERED: MIRTAZAPINE 15 MG TAB PO SCH (21:00)
[2017-08-05] MEDS ORDERED: ATORVASTATIN 80 MG TAB PO SCH (21:00)
[2017-08-05] MEDS: MORPHINE SULFATE 4 MG/ML INJ IV PUSH PRN (21:06)
[2017-08-05] MEDS: FERROUS SULFATE 325 MG (65 MG ELEMENTAL IRON) TAB PO SCH (21:11)
[2017-08-05] MEDS: FAMOTIDINE 20 MG TAB PO SCH (21:11)
[2017-08-05] MEDS: CARVEDILOL 12.5 MG TAB PO SCH (21:11)
[2017-08-05] MEDS: DOCUSATE SODIUM 50 MG/SENNA 8.6 MG TAB PO SCH (21:12)
[2017-08-05 22:00] VITALS: PULSE 78
[2017-08-05 23:00] VITALS: PULSE 76
[2017-08-06] VITALS (10 sets, daily range): BP systolic 19–137; BP diastolic 69–72; PULSE 74–90; RESP 16–18; TEMP 98.4–98.7; O2SAT 92–100
[2017-08-06] MEDS: MORPHINE SULFATE 4 MG/ML INJ IV PUSH PRN ×2 (03:45→11:07)
[2017-08-06] MEDS: diphenhydrAMINE HCL 25 MG CAP PO PRN ×2 (05:25→09:47)
[2017-08-06 06:33] LABS: BICARBONATE 29.8 MEQ/L (21.0-32.0); CALCIUM 8.2 MG/DL (8.5-10.1); CREATININE 5.08 MG/DL (0.60-1.30)
[2017-08-06] MEDS ORDERED: HYDROCHLOROTHIAZIDE 12.5 MG CAP PO SCH (09:00)
[2017-08-06] MEDS ORDERED: HEPARIN SODIUM - SQ 10,000 UNITS/ML VIAL SQ SCH (09:00)
[2017-08-06] MEDS ORDERED: FUROSEMIDE 40 MG TAB PO SCH (09:00)
[2017-08-06] MEDS ORDERED: PANTOPRAZOLE SOD 40 MG DELAYED RELEASE TAB PO SCH (09:00)
[2017-08-06] MEDS ORDERED: amLODIPine BESYLATE 5 MG TAB PO SCH (09:00)
[2017-08-06] MEDS ORDERED: ASPIRIN 81 MG CHEW TAB PO SCH (09:00)
[2017-08-06] MEDS ORDERED: CHOLECALCIFEROL (VIT D3) 1000 UNIT TAB PO SCH (09:00)
[2017-08-06] MEDS ORDERED: CALCITRIOL 0.25 MCG CAP PO SCH (09:00)
[2017-08-06] MEDS ORDERED: CLOPIDOGREL 75 MG TAB PO SCH (09:00)
[2017-08-06] MEDS ORDERED: LOSARTAN 50 MG TAB PO SCH (09:00)
--- NOTE | 2017-08-06 09:29 | PD.VS.PN ---
Subjective POD #: 1 Procedure(s): LEFT brachiobasilic transposition (2nd stage) Subjective/Hospital Course The patient did well since surgery and has appropriate arm pain but no hand pain. Rec'd HD yesterday per his usual schedule (MWF) Objective Vitals/I&O Date Time Temp Pulse Resp B/P (MAP) Pulse Ox O2 Delivery O2 Flow Rate FiO2 08/06/17 08:22 92 21 08/06/17 07:05 18 08/06/17 06:00 80 08/06/17 05:00 80 08/06/17 04:00 90 08/06/17 04:00 98.4 83 18 137/70 (92) 95 08/06/17 03:50 18 08/06/17 03:00 76 08/06/17 02:00 80 08/06/17 01:00 76 08/06/17 00:00 98.4 74 18 129/71 (90) 94 08/06/17 00:00 74 08/05/17 23:00 76 08/05/17 22:00 78 08/05/17 21:00 80 08/05/17 20:00 80 08/05/17 20:00 98.1 78 20 148/79 (102) 98 08/05/17 19:00 70 08/05/17 18:53 98.3 69 18 170/75 (106) 100 08/05/17 14:45 63 20 119/66 (83) 98 Nasal Cannula 2 08/05/17 13:15 61 20 115/74 (88) 98 Nasal Cannula 2 08/05/17 12:15 65 20 156/77 (103) 98 Nasal Cannula 2 08/05/17 11:15 65 20 142/88 (106) 98 Nasal Cannula 2 08/05/17 11:00 64 20 147/87 (107) 98 Nasal Cannula 2 08/05/17 10:45 64 20 145/83 (103) 98 Nasal Cannula 2 08/05/17 10:30 66 20 142/80 (100) 98 Nasal Cannula 2 08/05/17 10:17 98.0 64 20 134/70 (91) 100 Nasal Cannula 2 08/06/17 08/06/17 08/06/17 07:00 15:00 23:00 Intake Total 600 ml Balance 600 ml Exam: L UE arm slightly edematous + thrill palpable radial pulse Laboratory Laboratory Tests Test 08/05/17 15:45 08/06/17 05:34 Hepatitis A IgM Antibody NONREACTIVE Hepatitis B Surface Antigen NONREACTIVE Hepatitis B Core IgM Antibody NONREACTIVE Hepatitis C IgG Antibody NONREACTIVE Blood Urea Nitrogen 15 Creatinine 5.08 Random Glucose 102 Calcium Level 8.2 Sodium Level 139 Potassium Level 3.8 Chloride Level 101 Carbon Dioxide Level 29.8 Anion Gap 8 Estimat Glomerular Filtration Rate 14 Assessment and Plan Plan POD#1 s/p L UE AVF Revision (transposition) looks great d/c today Discharge Planning Sat (POD#1) Rick Morgan MD Aug 06, 2017 09:29
[2017-08-06] MEDS: CALCIUM ACETATE 667 MG CAP PO SCH (09:33)
[2017-08-06] MEDS: CARVEDILOL 12.5 MG TAB PO SCH (09:33)
[2017-08-06] MEDS: DOCUSATE SODIUM 50 MG/SENNA 8.6 MG TAB PO SCH (09:33)
[2017-08-06] MEDS: CYCLOBENZAPRINE HCL 10 MG TAB PO SCH (09:33)
--- NOTE | 2017-08-06 09:34 | PD.VS.DC ---
cc: Rick Morgan MD; Matt Davidson MD Discharge Summary Admission Date: Aug 05, 2017 at 10:08 Discharge Date: Aug 06, 2017 Admission Diagnosis: (1) CKD (chronic kidney disease) stage 5, GFR less than 15 ml/min (2) AVF (arteriovenous fistula) Discharge Diagnosis: (1) ESRD (end stage renal disease) on dialysis ICD Codes: N18.6 - End stage renal disease; Z99.2 - Dependence on renal dialysis (2) AVF (arteriovenous fistula) ICD Codes: I77.0 - Arteriovenous fistula, acquired Brief History from admission 57 yo male with ESRD on HD MWF, last rec'd HD Wed who presents for elective revision of LEFT UE AVF that was created 05/16/17. No hand/arm/incision troubles. Procedure(s): LEFT brachiobasilic transposition (2nd stage) Significant Findings Laboratory Tests Test 08/05/17 07:28 08/05/17 15:45 08/06/17 05:34 Red Blood Count 2.77 MIL/MM3 (4.50-5.90) Hemoglobin 9.6 GM/DL (13.0-17.0) Hematocrit 27.7 % (39.0-51.0) Mean Corpuscular Hemoglobin 34.6 PG (27.0-34.0) Red Cell Distribution Width 17.6 % (11.6-17.2) Eosinophils (%) (Auto) 4.9 % (0.0-4.0) Eosinophils # (Auto) 0.5 TH/MM3 (0-0.4) Creatinine 5.62 MG/DL (0.60-1.30) 5.08 MG/DL (0.60-1.30) Calcium Level 8.4 MG/DL (8.5-10.1) 8.2 MG/DL (8.5-10.1) Estimat Glomerular Filtration Rate 13 ML/MIN (>89) 14 ML/MIN (>89) Hospital Course: The patient did well with the procedure and rec'd HD via a catheter the afternoon on the procedure date. He was ready for d/c POD#1 with a palpable thrill and palpable radial pulse. He is being discharged with 3 days of pain medications for acute pain (post- surgical). Review of the [place] [facility] database shows he has had prescriptions in the past by other providers for narcotics, so will only provide him 3 days for post-surgical pain. Discharge Condition: Good Discharge Disposition: Discharge Home Any questions or concerns: Call [facility] at [facility] [phone] Our office will call with follow-up appointment Rick Morgan MD Aug 06, 2017 09:34
[2017-08-06] MEDS: FAMOTIDINE 20 MG TAB PO SCH (09:45)
[2017-08-06] MEDS: FERROUS SULFATE 325 MG (65 MG ELEMENTAL IRON) TAB PO SCH (09:46)
[2017-08-06] MEDS: hydrALAZINE HCL 100 MG TAB PO SCH (09:47)
--- NOTE | 2017-08-06 12:50 | HHI.NPPN ---
Subjective History of Present Illness 57-year-old male who was admitted for AV fistula placement left arm, he has ESRD and goes to hemodialysis on Tuesday and Tuesday Objective Data Data Vital Signs Date Time Temp Pulse Resp B/P (MAP) Pulse Ox O2 Delivery O2 Flow Rate FiO2 08/06/17 08:22 92 21 08/06/17 08:00 78 08/06/17 08:00 98.4 77 16 19/69 (53) 100 08/06/17 07:05 18 08/06/17 06:00 80 08/06/17 05:00 80 08/06/17 04:00 90 08/06/17 04:00 98.4 83 18 137/70 (92) 95 08/06/17 03:50 18 08/06/17 03:00 76 08/06/17 02:00 80 08/06/17 01:00 76 08/06/17 00:00 98.4 74 18 129/71 (90) 94 08/06/17 00:00 74 08/05/17 23:00 76 08/05/17 22:00 78 08/05/17 21:00 80 08/05/17 20:00 80 08/05/17 20:00 98.1 78 20 148/79 (102) 98 08/05/17 19:00 70 08/05/17 18:53 98.3 69 18 170/75 (106) 100 08/05/17 14:45 63 20 119/66 (83) 98 Nasal Cannula 2 08/05/17 13:15 61 20 115/74 (88) 98 Nasal Cannula 2 -: 08/05/17 0728 08/06/17 0534 Physical Exam General Appearance: Well Developed, Well Nourished Neck Neck Exam: Neck Supple Pulmonary Resp Exam: Clear Bilaterally, Breath Sounds Equal Cardiology CV Exam: Regular, Normal Sinus Rhythm Gastrointestinal/Abdomen GI Exam: Soft, Non-Tender, Bowel Sounds Present Extremeties Extremities Exam: Moderate Edema Assessment/Plan Problem List: (1) End stage renal disease ICD Codes: N18.6 - End stage renal disease Plan: Hemodialysis days are Tuesday, Tuesday, and Tuesday via permacath. Continue PhosLo and Calcitrol Left arm keep elevated There is swelling present in left arm He is discharged on Percocet 5 mg but can take up to 2 tablets if pain is not controlled and follow-up with Dr. Davidson (2) Anemia ICD Codes: D64.9 - Anemia, unspecified Status: Chronic Plan: Epogen with dialysis Jennifer Bernard MD Aug 06, 2017 12:50
== END 2017-08-06 14:07 | disposition home or self-care (01) ==
LOC: HSDC 06:14 → HSDI 10:08 → HCPC 18:15
PROVIDERS: ADMIT Surgery; ATTEND Surgery
DX: I13.2 Hypertensive heart and chronic kidney disease with heart failure and with stage 5 chronic kidney disease, or end stage renal disease (principal); I50.9 Heart failure, unspecified; N18.6 End stage renal disease; D63.1 Anemia in chronic kidney disease; I77.0 Arteriovenous fistula, acquired; I25.10 Atherosclerotic heart disease of native coronary artery without angina pectoris; J44.9 Chronic obstructive pulmonary disease, unspecified; E78.5 Hyperlipidemia, unspecified; D64.9 Anemia, unspecified; N40.0 Benign prostatic hyperplasia without lower urinary tract symptoms; Z87.891 Personal history of nicotine dependence
CPT/HCPCS: 01844; 36832; 80048; 80074; 85025; 85610; 86850; 86900; 86901; 86920; 86921; 86922; 90935; 96372; 96374; 96375; 96376; G0378; J0131; J1170; J1580; J1644; J2175; J2250; J2270; J2405; J2720; J3010; J3370; J7040; Q4081